=== PATIENT | male | born 1945 | race Caucasian/White ===

== ENCOUNTER 2019-04-28 09:48 | Outpatient (CLI) | payer MEDICARE, BC, SELFPAY ==
--- NOTE | ~2019-04-28 | MR_ITS ---
EXAMINATION: MR brain/brain stem wo con DATE: 04/28/2019 11:16 INDICATION: Weakness. TECHNIQUE: Magnetic resonance imaging (MRI) of the brain and brainstem was performed without intraven ous contrast. Sequences included sagittal and axial T1-weighted FSE, axial diffusion-weighted FS EPI, axial T2*-weighted GRE, axial T2-weighted FLAIR Propeller, and axial T2-weighted Propeller. Apparent diffusion coefficient (ADC) maps were created. COMPARISON: Head CT 02/10/2019 FINDINGS: There is no intracranial hemorrhage, acute infarction, or abnormal intracranial mass lesion . There are scattered areas of nonspecific increased T2-weighted signal intensity in the cerebral whi te matter and otoniel, which is within normal limits for the patient's age. The ventricles are normal in size. There is mild mucosal thickening in the paranasal sinuses. There are likely changes of ocular lens replacement surgeries. The mastoid air cells are normal. IMPRESSION: 1. Normal aging brain. Reviewed, dictated and finalized at location A. CTOR EMERGENCY DEPARTMENT IMPRESSION: 1. Normal aging brain.
--- NOTE | ~2019-04-28 | US_ITS ---
EXAMINATION: US carotid duplex BI EXAM DATE: 04/28/2019 12:35 INDICATION: Slurred speech, facial weakness. Fell last week. TECHNIQUE: Grayscale, color and pulsed Doppler images of the cervical carotid arteries were obtained . The degree of vessel stenosis is placed in one of the following categories: normal, <50% stenosis, 50-69% stenosis, >=70% stenosis but less than near-occlusion, near-occlusion, or occlusion. Note that percent stenosis relative to normal distal artery lumen diameter is indirectly measured from velocit y measurements as described by Marquise, et al. Radiology 2003; 229:340-346. There is no prior study fo r comparison. FINDINGS: RIGHT SIDE: Right common carotid artery peak systolic velocity (PSV in cm/s): 64 Right bulb/internal carotid artery peak systolic velocity (PSV in cm/s): 88 Right internal carotid artery end diastolic velocity (EDV in cm/s): 23 Right ICA/CCA peak systolic ratio: 1.4 Right external carotid artery peak systolic velocity (PSV in cm/s): 130 Right vertebral artery antegrade flow: yes There is mild scattered carotid plaque. Velocity and Doppler waveforms in the common and internal carotid arteries is normal. LEFT SIDE: Left common carotid artery peak systolic velocity (PSV in cm/s): 56 Left bulb/internal carotid artery peak systolic velocity (PSV in cm/s): 100 Left internal carotid artery end diastolic velocity (EDV in cm/s): 9 Left ICA/CCA peak systolic ratio: 1.8 Left external carotid artery peak systolic velocity (PSV in cm/s): 51 Left vertebral artery antegrade flow: yes There is mild scattered carotid plaque. Velocity and Doppler waveforms in the common and internal carotid arteries is normal. IMPRESSION: 1. Less than 50 percent stenosis in the right internal carotid artery. 2. Less than 50 percent stenosis in the left internal carotid artery. Reviewed, dictated and finalized at location A. OLOGIST
[2019-04-28 10:49] LABS: Blood Urea Nitrogen 30 mg/dL (8-26); Estimated Glomerular Filt Rate 23
== END 2019-04-28 09:49 | disposition home or self-care (01) ==
LOC: ANHIMG 09:56
PROVIDERS: PCP Family Medicine; Visit Provider Physician Assistant
DX: R53.1 Weakness (principal); R41.0 Disorientation, unspecified; I95.1 Orthostatic hypotension; I65.23 Occlusion and stenosis of bilateral carotid arteries
CPT/HCPCS: 70551; 93880

== ENCOUNTER → 2019-10-23 13:46 | Outpatient (CLI) | payer MEDICARE, BC, SELFPAY ==
--- NOTE | ~2019-10-23 | XR_ITS ---
XR chest 2V 10/23/2019 15:08 Indication: Pleural effusion. Procedure: 2 view chest Comparison: 12/30/2007 Findings: There is a masslike density in the left upper thorax. There are bilateral pleural effusions . Cardiomegaly. Status post median sternotomy for CABG. Mild pulmonary vascular congestion. There is left basilar atelectasis. No pneumothorax. Prominent mediastinum. Cannot exclude lymphadenopathy or u nderlying vascular abnormality. Impression: 1: Masslike density in the left upper thorax. Considerations include parenchymal mass and pseudotumor secondary to fluid in the fissure. Consider correlation with CT. 2: Small pleural effusions with left basilar atelectasis. 3: Prominent superior mediastinum. This may be further evaluated with contrast-enhanced CT to exclud e underlying lymphadenopathy or vascular abnormality. Reviewed, dictated and finalized at location A. Impression: 1: Masslike density in the left upper thorax. Considerations include parenchyma l mass and pseudotumor secondary to fluid in the fissure. Consider correlation with CT. 2: Small pleural effusions with left basilar atelectasis. 3: Prominent superior mediastinum. This may be further evaluated with contrast -enhanced CT to exclude underlying lymphadenopathy or vascular abnormality.
== END ==
PROVIDERS: PCP Family Medicine
DX: J90 Pleural effusion, not elsewhere classified (principal); R06.02 Shortness of breath
CPT/HCPCS: 71046

== ENCOUNTER 2020-05-16 04:43 | Observation (INO) | payer MEDICARE, BC, SELFPAY ==
[2020-05-16] VITALS (12 sets, daily range): BP systolic 123–153; BP diastolic 73–95; PULSE 101–119; RESP 18–30; TEMP 37.2–37.7; O2SAT 92–100
--- NOTE | ~2020-05-16 | CT_ITS ---
EXAMINATION: CT abdomen pelvis wo con DATE: 05/16/2020 05:27 INDICATION: Abdominal pain TECHNIQUE: Computed tomography (CT) of the abdomen and pelvis was performed without intravenous contr ast. The dose-length product (DLP) was 828.31 mGy-cm. Automated exposure control and iterative recons truction technique were employed. COMPARISON: 01/14/2004 FINDINGS: Minimal dependent atelectasis is present in the lung bases. The heart size is enlarged. The re are small pleural effusions, right greater than left. The liver, pancreas, gallbladder, and adrena l glands are normal. There is mild splenomegaly. The [place] kidneys are atrophic. There is a left pel radha renal transplant with mild hydronephrosis of the transplant. There is also mild fat stranding juan rounding the transplant kidney. No pathologically enlarged abdominal or pelvic lymph nodes are identi fied. There is no free intraperitoneal gas or evidence of bowel obstruction. There is circumferential wall thickening of the urinary bladder. There is mild lumbar spondylosis. IMPRESSION: 1. Circumferential bladder wall thickening suggestive of cystitis. Fat stranding adjacent to the left pelvic transplant kidney could be due to hydronephrosis or reflect superimposed pyelonephritis. 2. Small pleural effusions. Reviewed, dictated and finalized at location A. STITCH CLEANER IMPRESSION: 1. Circumferential bladder wall thickening suggestive of cystitis. Fat strandin g adjacent to the left pelvic transplant kidney could be due to hydronephrosis or reflect superimposed pyelonephritis. 2. Small pleural effusions.
--- NOTE | ~2020-05-16 | XR_ITS ---
EXAMINATION: XR chest 1V portable INDICATION: Fever TECHNIQUE: Portable AP chest at 0507 hours COMPARISON: 10/23/2019 FINDINGS: Cardiomegaly is noted. There are small pleural effusions. A mild diffuse interstitial patte rn is present. There are changes of prior cardiac surgery. No pneumothorax is identified. IMPRESSION: 1. Cardiomegaly with likely mild pulmonary edema. 2. Small pleural effusions. Reviewed, dictated and finalized at location A. CLAMPER
--- NOTE | 2020-05-16 04:48 | ECG_ITS ---
Measurements Intervals [place] Rate: 104 P: -48 MO: 149 QRS: -77 QRSD: 161 T: 33 QT: 392 QTc: 516 Interpretive Statements SINUS TACHYCARDIA FREQUENT ATRIAL PREMATURE COMPLEXES RIGHT BUNDLE BRANCH BLOCK LEFT ANTERIOR FASCICULAR BLOCK ABNORMAL ECG Electronically Signed On 05-16-2020 7:44:21 NEWSCAST PRODUCER by Lokesh Smith D.O.
[2020-05-16] MEDS: SODIUM CHLORIDE 0.9% IV 1,000 ML 999 ML IV CONT (05:09)
--- NOTE | 2020-05-16 05:11 | ED.GENADULT ---
HPI - General Adult General Chief complaint: Altered Mental Status <Umang Rivera MD - Last Filed: 05/16/20 07:30> Stated complaint: ams <Umang Rivera MD - Last Filed: 05/16/20 07:30> Time Seen by Provider: 05/16/20 04:45 <Umang Rivera MD - Last Filed: 05/16/20 07:30> History of Present Illness HPI narrative: Patient is a 74-year-old gentleman who presents the emergency department with chief complaint of generalized weakness. Patient is a renal transplant patient from [facility] and reports that over the last few days he has been weaker and weaker. The patient states he is also had chills and has had some nausea and vomiting and reports that his abdomen has felt discomfort. Patient denies cough denies shortness of breath per EMS the patient has been urinating everywhere and his called EMS because he has been more confused. <Umang Rivera MD - Last Filed: 05/16/20 07:30> Related Data Home medications: Home Medications Medication Instructions Recorded Confirmed Kimberly Layton 1 drp OPHTHALMIC (EYE) QPM 02/10/19 12/08/19 allopurinol 300 mg PO DAILY 02/10/19 12/08/19 aspirin 81 mg PO DAILY 02/10/19 12/08/19 atorvastatin 40 mg PO HS 02/10/19 12/08/19 calcitriol 0.5 mcg PO EVERY OTHER DAY 02/10/19 12/08/19 carbidopa-levodopa 25 - 250 tablet PO BID 02/10/19 12/08/19 carbidopa-levodopa 50 - 200 tablet PO BID 02/10/19 12/08/19 cevimeline 30 mg PO HS 02/10/19 12/08/19 docusate sodium [Colace] 100 mg PO BID 02/10/19 12/08/19 esomeprazole magnesium 40 mg PO BID 02/10/19 12/08/19 fluticasone propionate 2 spray INTRANASAL DAILY 02/10/19 12/08/19 ketoconazole 1 applic TOPICAL 3XW 02/10/19 12/08/19 lorazepam 0.5 mg PO QID PRN 02/10/19 12/08/19 melatonin 5 mg PO HS 02/10/19 12/08/19 metoprolol tartrate 12.5 mg PO BID 02/10/19 12/08/19 oxybutynin chloride 5 mg PO HS 02/10/19 12/08/19 tamsulosin 0.4 mg PO HS 02/10/19 12/08/19 clindamycin phosphate 1 % lotion 1 applic TOPICAL BID PRN 08/19/19 12/08/19 mupirocin calcium 2 % topical cream 1 applic TOPICAL BID 08/19/19 12/08/19 prucalopride 2 mg tablet 2 mg PO DAILY 08/19/19 12/08/19 pyridoxine (vitamin B6) 100 mg 100 mg PO DAILY 08/19/19 12/08/19 tablet ropinirole 0.25 mg tablet 0.25 mg PO HS tablet 08/19/19 12/08/19 apixaban 2.5 mg tablet 2.5 mg PO BID 10/01/19 12/08/19 midodrine 2.5 mg tablet 2.5 mg PO BID 10/01/19 12/08/19 polyethylene glycol 3350 17 8.5 gm PO BID gm 10/01/19 12/08/19 gram/dose oral powder sennosides 8.6 mg tablet 8.6 mg PO DAILY PRN tablet 10/01/19 12/08/19 bumetanide 1 mg tablet 1 mg PO DAILY 12/17/19 cholecalciferol (vitamin D3) 50 50 mcg PO DAILY 12/17/19 mcg (2,000 unit) capsule clotrimazole 10 mg bell 10 mg MUCOUS MEM .COMPLEX 12/17/19 fluocinonide 0.05 % topical cream 1 applic TOPICAL BID 12/17/19 po root 325 mg-pyridoxine HCl See Rx Instructions PO .COMPLEX 12/17/19 (vitamin B6) 25 mg capsule insulin glargine 100 unit/mL See Rx Instructions SUBCUT 12/17/19 subcutaneous solution .COMPLEX ml insulin regular human 100 unit/mL See Rx Instructions SUBCUT 12/17/19 injection solution .COMPLEX ml isosorbide mononitrate 30 mg 30 mg PO DAILY 12/17/19 tablet,extended release 24 hr latanoprost 0.005 % eye drops 1 drop EACH EYE QPM 12/17/19 magnesium oxide 400 mg PO BID 12/17/19 mycophenolate mofetil 250 mg 500 mg PO BID cap 12/17/19 capsule tacrolimus 1 mg capsule 0.5 mg PO .COMPLEX cap 12/17/19 venlafaxine 37.5 mg 37.5 mg PO DAILY cap 12/17/19 capsule,extended release 24 hr <Umang Rivera MD - Last Filed: 05/16/20 07:30> Allergies/adverse reactions: Allergies Allergy/AdvReac Type Severity Reaction Status Date / Time trimethobenzamide Allergy Severe Loss of Verified 05/16/20 05:46 Consciousness fish oil Allergy Mild Rash Verified 05/16/20 05:46 diphenhydramine Allergy Unknown aggi Verified 05/16/20 05:46 levofloxacin Allergy Unk
[2020-05-16 05:47] LABS: Basophils Absolute Auto 0.1 K/mm3 (0.0-0.1); Basophils Percent Auto 0.4 % (0.2-1.2); Eosinophils Percent Auto 0.1 % (0-4.4); Hematocrit 29.3 % (42.0-52.0); Hemoglobin 9.4 g/dL (14.0-18.0); Immature Granulocyte Absolute 0.06 K/mm3 (0.00-0.031); Immature Granulocyte Percent A 0.4 % (0-0.5); Lymphocytes Absolute Auto 1.27 K/mm3 (0.9-3.2); Lymphocytes Percent Auto 9.5 % (18.3-44.2); Mean Corpuscular HGB Conc 32.1 g/dl (32-36); Mean Corpuscular Hemoglobin 28.6 pg (26-34); Mean Corpuscular Volume 89.1 fl (80-100); Mean Platelet Volume 11.7 fl (7.4-10.4); Monocytes Absolute Auto 0.9 K/mm3 (0.1-0.6); Monocytes Percent Auto 6.9 % (2.6-8.5); Neutrophils Absolute Auto 11.1 K/mm3 (1.3-6.7); Neutrophils Percent Auto 82.7 % (45.5-73.1); Platelet Count Result 184 k/mm3 (150-375); Red Blood Count 3.29 M/mm3 (4.6-6.20); Red Cell Distribution Width 16.3 % (11.5-14.5); White Blood Count 13.4 K/mm3 (4.5-10.0)
[2020-05-16 06:04] LABS: INR 1.4; Prothrombin Time 18.1 Seconds (11.1-14.7)
[2020-05-16 06:05] LABS: Lipase 18 U/L (23-300); Partial Thromboplastin Time 35.3 SECONDS (22.3-36.8)
[2020-05-16 06:05] LABS: Add Urine Microscopic? YES; Appearance Urine Cloudy (Clear); Bacteria Urine 1+ /hpf; Bilirubin Urine Negative (Negative); Blood Urine 2+ (Negative); Color Urine Yellow (Yellow); Glucose Urine UA Negative (Negative); Ketones Urine Negative (Negative); Leukocyte Esterase Ur 3+ LEU/UL (Negative); Mucus Urine Rare /lpf; Nitrate Urine Negative (Negative); Protein Urine 3+ mg/dL (Negative); RBC Urine 21-50 /hpf (0-2); Specific Grav Ur 1.015 (1.001-1.035); Squamous Epithelial Cell Urine Rare /hpf (Few); Urobilinogen Urine Negative mg/dL (<2.0); WBC Urine >75 /hpf
[2020-05-16 06:07] LABS: Lactic Acid Reflex 1.2 mmol/L (0.7-2.1)
[2020-05-16 06:21] LABS: Troponin I 0.276 ng/mL (0.000-0.034)
[2020-05-16 06:22] LABS: Alanine Aminotransferase 10 U/L (4-50); Albumin Level 3.9 g/dL (3.5-5.1); Alkaline Phosphatase 72 U/L (38-126); Anion Gap 12 mmol/L (8-16); Aspartate Amino Transferase 29 U/L (17-59); Blood Urea Nitrogen 63 mg/dL (9-20); CRP 3.1 mg/dL (<1.0); Calcium 9.3 mg/dL (8.4-10.2); Carbon Dioxide 18 mmol/L (22-30); Chloride 109 mmol/L (98-107); Estimated CRCL calculation 22 ml/min; Estimated Glomerular Filt Rate 20; Glucose 148 mg/dL (75-110); Potassium 5.2 mmol/L (3.4-5.0); Sodium 139 mmol/L (137-145)
[2020-05-16] MEDS: LORazepam INJ (*CRX) 2 MG/ML VIAL 0.5 MG IV PUSH (06:45)
[2020-05-16] MEDS: SODIUM CHLORIDE 0.9% IV 1,000 ML 125 ML IV CONT (07:59)
--- NOTE | 2020-05-16 11:31 | PC.NURSE ---
Pt taken out of stretcher and given a hospital bed. Pt resting comfortably
--- NOTE | 2020-05-16 15:39 | PC.NURSE ---
called [facility] checking to see if assigned a bed, no bed yet, waiting for discharges, 1105, updated bed placement with [facility] 1539, still no bed .
[2020-05-16] MEDS: DOCUSATE SODIUM 100 MG CAPSULE PO (15:46)
[2020-05-16] MEDS: PYRIDOXINE HCL 50 MG TABLET 100 MG PO (15:47)
[2020-05-16] MEDS: hydrALAZINE HCL 50 MG TABLET PO ×2 (15:48→21:44)
[2020-05-16] MEDS: CARBIDOPA/LEVODOPA 25/250 MG TABLET 1 TABLET PO (15:49)
[2020-05-16] MEDS: allopurinoL 300 MG TABLET PO (15:50)
[2020-05-16] MEDS: APIXABAN 2.5 MG TABLET PO (15:50)
[2020-05-16] MEDS: ISOSORBIDE DINITRATE 20 MG TABLET PO (15:50)
[2020-05-16] MEDS: BUMETANIDE 1 MG TABLET PO (15:51)
[2020-05-16 17:17] LABS: Glucose Point of Care 321 (65-105)
--- NOTE | 2020-05-16 19:31 | PC.NURSE ---
Lizette from [facility] called and said they are still waiting for bed assignment for this patient.
--- NOTE | 2020-05-16 21:02 | PC.NURSE ---
going home at this time. Pt resting comfortably.
[2020-05-16] MEDS: OXYBUTYNIN CHLORIDE 5 MG TABLET PO (21:44)
[2020-05-16] MEDS: METOPROLOL SUCCINATE EXT REL 50 MG TABCR PO (21:44)
[2020-05-16] MEDS: TAMSULOSIN HCL 0.4 MG CAPSULE PO (21:44)
[2020-05-16] MEDS: MELATONIN 5 MG TABLET PO (21:45)
--- NOTE | 2020-05-16 21:45 | PC.NURSE ---
Pt home medications given per verbal order by JUVE cast. 500mg Cellcept and 1mg Tacrolimus given per prescription instructions and detailed medication list provided by spouse.
[2020-05-16 21:53] LABS: Glucose Point of Care 348 (65-105)
[2020-05-16] MEDS: INSULIN HUMAN REGULAR (*BKC) 100 UNITS/ML 17 UNITS SUB-Q (22:22)
[2020-05-16] MEDS: INSULIN GLARGINE (*BKC) 100 UNITS/ML 25 UNITS SUB-Q (22:22)
[2020-05-17] VITALS (12 sets, daily range): BP systolic 120–150; BP diastolic 67–93; PULSE 89–96; RESP 18–25; TEMP 36.8–37.1; O2SAT 92–98; BMI 30.2
--- NOTE | 2020-05-17 | ECHO_ITS ---
Patient Info Name: Maris Almeida Age: 74 years : 1945 Gender: Male Ht: 69 in Wt: 207 lbs BSA: 2.16 m2 HR: 100 bpm BP: 123 / 67 mmHg Technical Quality: Good Exam Date: 05/17/2020 2:53 PM Exam Location: [facility] Patient Status: Outpatient Admit Date: 05/17/2020 Staff Ordering Physician: Lokesh Smith DO Surveyor Chain Helper: Madison Boyer RDCS Attending Provider: Pam Fragoso MD Referring Physician: Luis VALLEJO; Exam Type: CA echo doppler color flow Summary 1. Left ventricular systolic function is preserved, estimated at 50-55%. 2. Left ventricular chamber dimension is normal. 3. There is moderately increased left ventricular wall thickness. 4. The left ventricular diastolic function is abnormal. 5. E/e' 20 is elevated. 6. Right ventricular systolic function is reduced based on a TAPSE 1.0 cm. 7. Left atrial chamber dimension is moderately enlarged. 8. Right atrial chamber dimension is mildly enlarged. 9. There is severe aortic valve sclerosis. 10. There is severe aortic valve stenosis with a peak velocity of 407 cm/s, mean gradient of 40 mmHg, and aortic valve area of 0.8 cm2. 11. There is mild aortic valve regurgitation. 12. The mitral valve has moderately calcified annulus. 13. There is mild tricuspid valve regurgitation. 14. Moderate pulmonary hypertension, estimated pulmonary arterial systolic pressure is 52 mmHg. Left Ventricle E/e' 20 is elevated. Left ventricular systolic function is preserved, estimated at 50-55%. Left ventricular chamber dimension is normal. There is moderately increased left ventricular wall thickness. The left ventricular diastolic function is abnormal. Right Ventricle Right ventricular systolic function is reduced based on a TAPSE 1.0 cm. Right ventricular chamber dimension is not well visualized. Left Atria Left atrial chamber dimension is moderately enlarged. Right Atria Right atrial chamber dimension is mildly enlarged. Aortic Valve The aortic valve is bicuspid. There is severe aortic valve sclerosis. There is severe aortic valve stenosis with a peak velocity of 407 cm/s, mean gradient of 40 mmHg, and aortic valve area of 0.8 cm2. There is mild aortic valve regurgitation. Pulmonic Valve There is no pulmonic regurgitation. Mitral Valve The mitral valve has moderately calcified annulus. There is no mitral valve stenosis. There is no mitral valve regurgitation. Tricuspid Valve There is mild tricuspid valve regurgitation. Moderate pulmonary hypertension, estimated pulmonary arterial systolic pressure is 52 mmHg. Pericardium/Pleural There is no pericardial effusion. Inferior Vena Cava Normal inferior vena cava with >50% collapse upon inspiration consistent with normal right atrial pressure, 5 mmHg. Aorta The aortic root size at the sinus of Valsalva is normal. Left Ventricular Outflow Tract Name Value Normal LVOT 2D LVOT Diameter 2.1 cm LVOT Doppler LVOT Peak Gradient 2 mmHg LVOT Mean Gradient 1 mmHg LVOT VTI 18 cm LVOT VTI/AV VTI Ratio
--- NOTE | 2020-05-17 05:51 | PC.NURSE ---
Pt feels constant urge to urinate but is unable to urinate more than dribbling. Pt incontinent in bed several times overnight. Per EDP serene initiate cerna catheter for I&O accuracy. Cerna placed per protocol with over 300ml return of yellow urine. Pt notes relief.
--- NOTE | 2020-05-17 06:30 | PC.NURSE ---
Adrian from [facility] Patient Access/Transfer. [facility] is currently over-capacity, holding 20+ patients in ER. Several of them are also ICU. No estimated time as to when a bed will become available...depends on discharges, etc.
--- NOTE | 2020-05-17 07:37 | PC.NURSE ---
Assumed care of pt, pt is alert on stretcher, discussed POC. VSS.
--- NOTE | 2020-05-17 07:53 | PC.NURSE ---
Pt given breakfast tray. BS 108.
[2020-05-17 07:55] LABS: Glucose Point of Care 108 (65-105)
[2020-05-17] MEDS: allopurinoL 300 MG TABLET PO (07:55)
[2020-05-17 08:12] LABS: Basophils Percent Auto 0.3 % (0.2-1.2); Eosinophils Percent Auto 0.1 % (0-4.4); Hematocrit 28.9 % (42.0-52.0); Immature Granulocyte Absolute 0.05 K/mm3 (0.00-0.031); Immature Granulocyte Percent A 0.4 % (0-0.5); Lymphocytes Percent Auto 8.1 % (18.3-44.2); Mean Corpuscular HGB Conc 31.1 g/dl (32-36); Mean Platelet Volume 11.2 fl (7.4-10.4); Monocytes Absolute Auto 0.9 K/mm3 (0.1-0.6); Monocytes Percent Auto 6.8 % (2.6-8.5); Neutrophils Absolute Auto 11.5 K/mm3 (1.3-6.7); Neutrophils Percent Auto 84.3 % (45.5-73.1); Platelet Count Result 160 k/mm3 (150-375); Red Blood Count 3.21 M/mm3 (4.6-6.20); Red Cell Distribution Width 16.5 % (11.5-14.5); White Blood Count 13.6 K/mm3 (4.5-10.0)
[2020-05-17 08:23] LABS: Anion Gap 11 mmol/L (8-16); Blood Urea Nitrogen 66 mg/dL (9-20); Calcium 9.3 mg/dL (8.4-10.2); Carbon Dioxide 20 mmol/L (22-30); Chloride 108 mmol/L (98-107); Estimated CRCL calculation 19 ml/min; Estimated Glomerular Filt Rate 16; Glucose 110 mg/dL (75-110); Potassium 4.8 mmol/L (3.4-5.0); Sodium 139 mmol/L (137-145)
--- NOTE | 2020-05-17 08:45 | ECG_ITS ---
Measurements Intervals [place] Rate: 95 P: 52 OH: 175 QRS: -77 QRSD: 164 T: 60 QT: 413 QTc: 520 Interpretive Statements SINUS RHYTHM ATRIAL PREMATURE COMPLEXES RIGHT BUNDLE BRANCH BLOCK LEFT ANTERIOR FASCICULAR BLOCK BASELINE ARTIFACT- I, II, III, AVR, AVL, AVF ABNORMAL ECG Electronically Signed On 05-17-2020 9:09:53 CATTERY OPERATOR by Lokesh Smith D.O.
--- NOTE | 2020-05-17 09:15 | PC.NURSE ---
Pt placed on 2 L NC O2.
--- NOTE | 2020-05-17 09:24 | PC.NURSE ---
Pt coughed and HR now 110, EDP made aware.
--- NOTE | 2020-05-17 09:26 | PC.NURSE ---
I did not do this EKG but doing the documentation.
[2020-05-17] MEDS: APIXABAN 2.5 MG TABLET PO (09:36)
[2020-05-17] MEDS: CARBIDOPA/LEVODOPA 25/250 MG TABLET 1 TABLET PO (09:36)
[2020-05-17] MEDS: BUMETANIDE 1 MG TABLET PO (09:36)
[2020-05-17] MEDS: hydrALAZINE HCL 50 MG TABLET PO ×2 (09:36→17:06)
[2020-05-17] MEDS: DOCUSATE SODIUM 100 MG CAPSULE PO (09:36)
[2020-05-17] MEDS: ISOSORBIDE DINITRATE 20 MG TABLET PO ×2 (09:37→17:06)
[2020-05-17] MEDS: MIDODRINE HCL 2.5 MG TABLET 5 MG PO ×2 (09:37→17:07)
[2020-05-17] MEDS: PYRIDOXINE HCL 50 MG TABLET 100 MG PO (09:37)
[2020-05-17] MEDS: OXYBUTYNIN CHLORIDE 5 MG TABLET PO ×2 (09:37→17:05)
--- NOTE | 2020-05-17 09:43 | PC.NURSE ---
Pt has medication that was not available in the pharmacy. Pt is taking Calcitriol 0.5 mcg, Carbidopa/levodopa 50mg/200 mg, nexium 40 mg, Cellcept 250 mg, Tacrolimus 1 mg, Aspirin 81 mg, and po root 550 mg
[2020-05-17 12:12] LABS: Glucose Point of Care 105 (65-105)
--- NOTE | 2020-05-17 15:48 | PM.IMHP ---
H&P: HPI History of Present Illness Date/Time: 05/17/20 15:48 Chief Complaint: Generalized weakness UTI Narrative: Maris Almeida is a 74 year old male status post kidney transplant in 2007 with generalized weakness had difficulty with his ADLs felt feverish and fatigue patient had been urinating everywhere in the house EMS was called and patient was brought emergency depart, patient normally is seen at [facility] as hes kidney transplant patient, ER physician did speak with his physician at the [facility] and patient is accepted however awaiting to be transferred, patient urine appears to be positive for UTI we have started the patient on Rocephin will follow-up on urine culture and sensitivity hopefully patient will be transferred to the [facility] hospital, will resume all his medication, is present in the room. Review of Systems Review of Systems: All systems reviewed & are unremarkable except as noted in HPI and below PMFSH Past Medical History Medical History (Updated 05/17/20 @ 09:21 by Avinash Garcia DO) BPH (benign prostatic hyperplasia) Depression Diabetes Dry mouth Gastroparesis Stage 4 Glaucoma Gout HLD (hyperlipidemia) HTN (hypertension) Parkinson's disease Subdural hematoma From fall on 24 December 2018 Surgical History Surgical History (Updated 05/16/20 @ 06:29 by Umang Rivera MD) History of biopsy rt shoulder and lt palm Hx of CABG 2007, followed by lengthy hospital stay and a second surgery Renal transplant recipient 2007 Family History Family History (Updated 05/17/20 @ 13:09 by Lupis Cheek RNLP) Father Family history of malignant neoplasm of stomach Mother Diabetes mellitus Grandparent Family history of cardiovascular disease Diabetes mellitus Sibling Crohn's disease Brain aneurysm Social History Social History Smoking status: Never smoker Alcohol intake: current Drinks per week: 0 Substance use: never Substance use type: does not use Gender identity (if verbalized by the patient): Male Spiritual care concerns: No Meds Home Medications and Allergies Home Medications Medication Instructions Recorded Confirmed Type allopurinol 300 mg PO DAILY 02/10/19 05/17/20 History aspirin 81 mg PO DAILY 02/10/19 05/17/20 History atorvastatin 40 mg PO HS 02/10/19 05/17/20 History calcitriol 0.5 mcg PO MOWEFR 02/10/19 05/17/20 History carbidopa-levodopa 25 - 250 tablet PO BID 02/10/19 05/17/20 History carbidopa-levodopa 50 - 200 tablet PO BID 02/10/19 05/17/20 History docusate sodium [Colace] 100 mg PO BID 02/10/19 05/17/20 History esomeprazole magnesium 40 mg PO BID 02/10/19 05/17/20 History fluticasone propionate 2 spray INTRANASAL DAILY PRN 02/10/19 05/17/20 History ketoconazole 1 applic TOPICAL 3XW 02/10/19 05/17/20 History lorazepam 0.5 mg PO Q6H PRN 02/10/19 05/17/20 History melatonin 5 mg PO HS 02/10/19 05/17/20 History oxybutynin chloride 5 mg PO HS 02/10/19 05/17/20 History tamsulosin 0.4 mg PO HS 02/10/19 05/17/20 History clindamycin phosphate 1 % lotion 1 applic TOPICAL BID PRN 08/19/19 05/17/20 History prucalopride 2 mg tablet 2 mg PO DAILY 08/19/19 05/17/20 History ropinirole 0.25 mg tablet 0.125 mg PO HS tablet 08/19/19 05/17/20 History apixaban 2.5 mg tablet 2.5 mg PO BID 10/01/19 05/17/20 History polyethylene glycol 3350 17 17 gm PO BID PRN gm 10/01/19 05/17/20 History gram/dose oral powder sennosides 8.6 mg tablet 8.6 mg PO DAILY PRN tablet 10/01/19 05/17/20 History bumetanide 1 mg tablet 1 mg PO DAILY 12/17/19 05/17/20 History clotrimazole 10 mg bell See Rx Instructions .ROUTE 12/17/19 05/17/20 History .COMPLEX PRN fluocinonide 0.05 % topical cream 1 applic TOPICAL DAILY PRN 12/17/19 05/17/20 History insulin regular human 100 unit/mL See Rx Instructions SUBCUT 12/17/19 05/17/20 History injection solution .COMPLEX ml latanoprost 0.005 % eye drops 1 drop EACH EYE QPM 09
--- NOTE | 2020-05-17 15:58 | PM.TDS ---
Transfer Discharge Sum: Prov Provider Date of admission: 05/17/20 09:15 Primary care physician: Neftaly Ford MD Admitting clinician: Pam Fraogso MD Consults: 05/17/20 09:16 Consult to Physician Routine Comment: Consulting Provider: Shreyas Pemberton Reason for consultation: renal insufficiency Has provider been notified: Yes 05/17/20 09:17 Consult to Physician Routine Comment: Consulting Provider: Lokesh Smith Reason for consultation: elevated troponin Has provider been notified: Yes DS: Admitting Diagnosis Admitting Diagnosis Admitting Diagnosis: Chief Complaint: Generalized weakness UTI DS: Discharge Diagnosis Discharge Diagnosis (1) Urinary tract infection: Qualifiers: Hematuria presence: without hematuria Urinary tract infection type: acute cystitis Qualified Code(s): N30.00 - Acute cystitis without hematuria Code(s): N39.0 - Urinary tract infection, site not specified Status: Acute Assessment and Plan: Maris Almeida is a 74 year old male status post kidney transplant in 2007 with generalized weakness had difficulty with his ADLs felt feverish and fatigue patient had been urinating everywhere in the house EMS was called and patient was brought emergency depart, patient normally is seen at [facility] as has kidney transplant patient, ER physician did speak with his physician at the [facility] and patient is accepted however awaiting to be transferred, patient urine appears to be positive for UTI we have started the patient on Rocephin will follow-up on urine culture and sensitivity hopefully patient will be transferred to the [facility] hospital, will resume all his medication, is present in the room. I was just informed patient has a bed available and is being transferred Transfer Discharge Sum: Med Medications Active and Home Medications: Home Medications allopurinol 300 mg PO DAILY 02/10/19 [History Confirmed 05/17/20] aspirin 81 mg PO DAILY 02/10/19 [History Confirmed 05/17/20] atorvastatin 40 mg PO HS 02/10/19 [History Confirmed 05/17/20] calcitriol 0.5 mcg PO MOWEFR 02/10/19 [History Confirmed 05/17/20] carbidopa-levodopa 25 - 250 tablet PO BID 02/10/19 [History Confirmed 05/17/20] carbidopa-levodopa 50 - 200 tablet PO BID 02/10/19 [History Confirmed 05/17/20] docusate sodium [Colace] 100 mg PO BID 02/10/19 [History Confirmed 05/17/20] esomeprazole magnesium 40 mg PO BID 02/10/19 [History Confirmed 05/17/20] fluticasone propionate 2 spray INTRANASAL DAILY PRN 02/10/19 [History Confirmed 05/17/20] ketoconazole 1 applic TOPICAL 3XW 02/10/19 [History Confirmed 05/17/20] lorazepam 0.5 mg PO Q6H PRN 02/10/19 [History Confirmed 05/17/20] melatonin 5 mg PO HS 02/10/19 [History Confirmed 05/17/20] oxybutynin chloride 5 mg PO HS 02/10/19 [History Confirmed 05/17/20] tamsulosin 0.4 mg PO HS 02/10/19 [History Confirmed 05/17/20] clindamycin phosphate 1 % lotion 1 applic TOPICAL BID PRN 08/19/19 [History Confirmed 05/17/20] prucalopride 2 mg tablet 2 mg PO DAILY 08/19/19 [History Confirmed 05/17/20] ropinirole 0.25 mg tablet 0.125 mg PO HS tablet 08/19/19 [History Confirmed 05/17/20] apixaban 2.5 mg tablet 2.5 mg PO BID 10/01/19 [History Confirmed 05/17/20] polyethylene glycol 3350 17 gram/dose oral powder 17 gm PO BID PRN gm 10/01/19 [History Confirmed 05/17/20] sennosides 8.6 mg tablet 8.6 mg PO DAILY PRN tablet 10/01/19 [History Confirmed 05/17/20] bumetanide 1 mg tablet 1 mg PO DAILY 12/17/19 [History Confirmed 05/17/20] clotrimazole 10 mg bell See Rx Instructions .ROUTE .COMPLEX PRN 12/17/19 [History Confirmed 05/17/20] fluocinonide 0.05 % topical cream 1 applic TOPICAL DAILY PRN 12/17/19 [History Confirmed 05/17/20] insulin regular human 100 unit/mL injection solution See Rx Instructions SUBCUT .COMPLEX ml 12/17/19 [History Confirmed 05/17/20] latanoprost 0.005 % eye drops 1 drop EACH EYE QPM 12/17/19 [History Confirmed 05/17/20] mycophenolate mofetil 250 mg capsule 500 mg PO
[2020-05-17] MEDS: INSULIN HUMAN REGULAR (*BKC) 100 UNITS/ML 17 UNITS SUB-Q (17:05)
[2020-05-17] MEDS: PANTOPRAZOLE 40 MG TABLET PO (17:06)
[2020-05-17 17:26] LABS: Glucose Point of Care 125 (65-105)
--- NOTE | 2020-05-17 17:48 | PM.CNCAR ---
Assessment and Plan Assessment and plan (1) Urinary tract infection: Qualifiers: Hematuria presence: without hematuria Urinary tract infection type: acute cystitis Qualified Code(s): N30.00 - Acute cystitis without hematuria Code(s): N39.0 - Urinary tract infection, site not specified Status: Acute Assessment and Plan: Receiving antibiotics as per hospitalist. (2) Elevated troponin: Code(s): R77.8 - Other specified abnormalities of plasma proteins Status: Acute Assessment and Plan: Peaked at 1.9 and trending down. Could be type II infarct related to UTI, CKD. No symptoms to suggest ACS. He had non-obstructive left heart cath recently at [facility]. Echo showed preserved EF at 50-55%, bicuspid aortic valve with severe . No further cardiac workup related to elevated troponins. (3) HLD (hyperlipidemia): Code(s): E78.5 - Hyperlipidemia, unspecified Status: Acute Assessment and Plan: On statin. (4) HTN (hypertension): Code(s): I10 - Essential (primary) hypertension Status: Acute Assessment and Plan: Stable. (5) Aortic stenosis due to bicuspid aortic valve: Code(s): Q23.0 - Congenital stenosis of aortic valve; Q23.1 - Congenital insufficiency of aortic valve Status: Acute Assessment and Plan: He is scheduled for TAVR at [facility] in next 1-2 weeks. History of Present Illness History of Present Illness Consult date/time: 05/17/20 17:48 Reason for consult: Elevated troponin 74 yr old man who is being followed by [facility] cardiology presented to ER due to weakness. He has a history of renal transplant with [facility], CKD, DM, hypertnesion, dyslipidemia, bicuspid aortic valve that is severe and plans for TAVR at [facility] in next 1-2 weeks. He has been in ED for 30 hours awaiting for bed availability to be transferred to [facility]. Apparently they just called that a bed is available and he will transferred there shortly this evening. He reports he feels pressure in his bladder and not making much urine but a couple of teaspoons. Found he has UTI. EKG shows sinus rhythm, RBBB, LAFB. Troponin was 0.267 went to 1.9, then 1.6. Denies chest pain, sob. Reason For Visit: UTI,Acute Renal Insufficiency,Renal Transplant, Review of Systems Constitutional: Constitutional: Reports as per HPI, Denies chills, Reports fatigue and Denies fever(s) Cardiovascular: Cardiovascular: Reports as per HPI, Denies chest pain, Denies leg edema and Denies lightheadedness Respiratory: Respiratory: Reports as per HPI and Denies dyspnea Gastrointestinal: Gastrointestinal: Reports as per HPI and Denies abdominal pain Genitourinary: Genitourinary: Reports as per HPI and Reports dysuria Musculoskeletal: Musculoskeletal: Reports as per HPI Neurologic: Reports as per HPI, Denies dizziness and Denies syncope [facility] Past Medical History Medical History (Updated 05/17/20 @ 17:58 by Lokesh Smith DO) BPH (benign prostatic hyperplasia) Depression Diabetes Dry mouth Gastroparesis Stage 4 Glaucoma Gout HLD (hyperlipidemia) HTN (hypertension) Parkinson's disease Subdural hematoma From fall on 24 December 2018 Surgical History Surgical History (Updated 05/16/20 @ 06:29 by Umang Rivera MD) History of biopsy rt shoulder and lt palm Hx of CABG 2007, followed by lengthy hospital stay and a second surgery Renal transplant recipient 2007 Family History Family History (Updated 05/17/20 @ 13:09 by Lupis Cheek, RNLP) Father Family history of malignant neoplasm of stomach Mother Diabetes mellitus Grandparent Family history of cardiovascular disease Diabetes mellitus Sibling Crohn's disease Brain aneurysm Social History Social History Smoking status: Never smoker Alcohol intake: current Drinks per week: 0 Substance use: never Substance use type: does not use Gender identity (i
--- NOTE | 2020-05-17 18:42 | ADMGEN ---
This patient, Maris Almeida, was admitted to IMU Room 205-02 at 1113. Patient/family oriented to hospital policies and general routines including ID bracelet, bed and alarms, visiting hours, pain management, procedures, bathroom and other care routines, personal items, smoking policy, room service/diet, and visiting hours. Information on how to activate the Rapid Response Team has been discussed. Patient/Family are encouraged to report perceived risks to care and to ask questions if they do not understand what they are told or what they should do.
== END 2020-05-17 18:11 | disposition short-term general hospital (02) ==
LOC: ANHED 05-17 09:21 → ANHIMU 05-17 10:14
PROVIDERS: Emergency Medicine; Admitting Provider Family Medicine; Emergency Provider Emergency Medicine; PCP Family Medicine; Visit Provider Family Medicine
DX: N30.00 Acute cystitis without hematuria (principal); R77.8 Other specified abnormalities of plasma proteins; R53.1 Weakness; Z94.0 Kidney transplant status; I10 Essential (primary) hypertension; E11.9 Type 2 diabetes mellitus without complications; G20 Parkinson's disease; K31.84 Gastroparesis; M10.9 Gout, unspecified; H40.9 Unspecified glaucoma; E78.5 Hyperlipidemia, unspecified; N40.0 Benign prostatic hyperplasia without lower urinary tract symptoms; Q23.0 Congenital stenosis of aortic valve; Q23.1 Congenital insufficiency of aortic valve; Z95.1 Presence of aortocoronary bypass graft; Z79.82 Long term (current) use of aspirin; Z79.01 Long term (current) use of anticoagulants; Z79.4 Long term (current) use of insulin
CPT/HCPCS: 36415; 51701; 51702; 71045; 74176; 80048; 80053; 81001; 82948; 83605; 83690; 84484; 85025; 85610; 85730; 86140; 87040; 87077; 87086; 87088; 87186; 93005; 93306; 96361; 96365; 96375; 99285; A9270; G0378; J0131; J0696; J1815; J2060; J7030

== ENCOUNTER 2020-09-16 15:00 | Outpatient (RCR) | payer MEDICARE, BC, SELFPAY ==
[2020-06-28 19:06] LABS: Glucose Point of Care 121 (65-105)
--- NOTE | 2020-07-29 14:04 | PCCPR ---
Absent Sammy's called state he is having a tough day. He had a medication change adding more hydralazine for his b/p it is making him feel weak and tired and did not feel like getting out of bed as well as nauseated.
--- NOTE | 2020-08-04 14:47 | PCCPR ---
Absent Sammy sent home yesterday due to upset stomach and vomiting. called today states he is still not feeling well. He also has some medication changes. Plans to return on Sunday.
--- NOTE | 2020-08-05 13:42 | PCCPR ---
pt called to cxl Sammy today. He is still not feeling well
--- NOTE | 2020-08-30 13:49 | PCCPR ---
Absent today, home with gastroperisis flare up.
== END 2020-09-16 19:30 | disposition home or self-care (01) ==
LOC: ANHCPREHAB 15:00
PROVIDERS: PCP Family Medicine; Visit Provider Internal Medicine Interventional Cardiology
DX: Z95.2 Presence of prosthetic heart valve (principal)
CPT/HCPCS: 93798

== ENCOUNTER 2020-11-17 15:35 | Emergency (ER) | payer MEDICARE, BC, SELFPAY ==
[2020-11-17 17:00] VITALS: BP 141/65; PULSE 73; RESP 14; TEMP 36.8; O2SAT 99
--- NOTE | 2020-11-17 17:31 | ED.GENADULT ---
HPI - General Adult General Chief complaint: Unspecified Stated complaint: L UPPER ARM BRUISING Time Seen by Provider: 11/17/20 17:04 History of Present Illness HPI narrative: Patient presents with bruising to the left upper extremity. Reports bruising has been there for 2 days and appears to be getting worse. He talked to his primary care doctor and was referred to the ER for evaluation. He does not member any trauma to the area he denies any pain to the area denies any focal numbness or weakness. Related Data Home Medications Medication Instructions Recorded Confirmed allopurinol 300 mg PO DAILY 02/10/19 11/05/20 atorvastatin 40 mg PO HS 02/10/19 11/05/20 calcitriol 0.5 mcg PO MOWEFR 02/10/19 11/05/20 carbidopa-levodopa 25 - 250 tablet PO BID 02/10/19 11/05/20 carbidopa-levodopa 50 - 200 tablet PO BID 02/10/19 11/05/20 docusate sodium [Colace] 100 mg PO BID 02/10/19 11/05/20 fluticasone propionate 2 spray INTRANASAL DAILY PRN 02/10/19 11/05/20 ketoconazole 1 applic TOPICAL 3XW 02/10/19 11/05/20 lorazepam 0.5 mg PO Q6H PRN 02/10/19 11/05/20 melatonin 5 mg PO HS 02/10/19 11/05/20 oxybutynin chloride 5 mg PO HS 02/10/19 11/05/20 tamsulosin 0.4 mg PO HS 02/10/19 11/05/20 ropinirole 0.25 mg tablet 0.125 mg PO HS tablet 08/19/19 11/05/20 apixaban 2.5 mg tablet 2.5 mg PO BID 10/01/19 11/05/20 polyethylene glycol 3350 17 17 gm PO BID PRN gm 10/01/19 11/05/20 gram/dose oral powder sennosides 8.6 mg tablet 8.6 mg PO DAILY PRN tablet 10/01/19 11/05/20 fluocinonide 0.05 % topical cream 1 applic TOPICAL DAILY PRN 12/17/19 11/05/20 insulin regular human 100 unit/mL See Rx Instructions SUBCUT 12/17/19 11/05/20 injection solution .COMPLEX ml latanoprost 0.005 % eye drops 1 drop EACH EYE QPM 12/17/19 11/05/20 tacrolimus 1 mg capsule, 1 mg PO Q12H cap 12/17/19 11/05/20 immediate-release bumetanide 2 mg PO HS PRN 05/17/20 11/05/20 insulin glargine [Lantus U-100 20 unit SUBCUT BID 05/17/20 11/05/20 Insulin] midodrine 5 mg PO BID PRN 05/17/20 11/05/20 pyridoxine (vitamin B6) 100 mg PO DAILY 05/17/20 11/05/20 venlafaxine 75 mg PO HS 05/17/20 11/05/20 B complex with C 20-folic acid 1 cap PO DAILY 06/24/20 11/05/20 [Triphrocaps] aspirin 81 mg PO DAILY 06/24/20 11/05/20 brimonidine 1 drp EACH EYE TID 06/24/20 11/05/20 folic acid 1 mg PO DAILY 06/24/20 11/05/20 isosorbide dinitrate 20 mg PO TID 06/24/20 11/05/20 metoprolol succinate 100 mg PO HS 06/24/20 11/05/20 prednisone 5 mg PO DAILY 06/24/20 11/05/20 prucalopride [Motegrity] 2 mg PO DAILY 06/24/20 11/05/20 sodium bicarbonate 20 g BID 06/24/20 11/05/20 tacrolimus 0.5 mg HS 06/24/20 11/05/20 ferrous sulfate 325 mg (65 mg 325 mg PO DAILY 07/05/20 11/05/20 iron) tablet omeprazole 40 mg capsule,delayed 40 mg PO DAILY cap 07/05/20 11/05/20 release vitamin B complex and vitamin C 1 cap PO DAILY 07/05/20 11/05/20 no.20-folic acid 1 mg capsule hydralazine 50 mg PO TID 08/19/20 11/05/20 carvedilol 12.5 mg tablet 12.5 mg PO Q12H 11/05/20 11/08/20 Allergies Allergy/AdvReac Type Severity Reaction Status Date / Time trimethobenzamide Allergy Severe Loss of Verified 11/05/20 14:43 Consciousness fish oil Allergy Mild Rash Verified 11/05/20 14:43 diphenhydramine Allergy Unknown aggi Verified 11/05/20 14:43 levofloxacin Allergy Unknown Hives Verified 11/05/20 14:43 NSAIDS (Non-Steroidal Allergy Unknown renal Verified 11/05/20 14:43 Anti-Inflamma insuff metoclopramide AdvReac Severe Other Verified 11/05/20 14:43 ondansetron AdvReac Severe Other Verified 11/05/20 14:43 Review of Systems Review of Systems: CONSTITUTIONAL: Denies fever, chills, or sweats. EYES: Denies visual changes, redness, or discharge. ENT: Denies rhinorrhea, congestion, sore throat, or otalgia. CARDIOVASCULAR: Denies chest pain, palpitations, or edema. RESPIRATORY: Denies cough or dyspnea. GASTROINTESTINAL: Denies abdominal pain, nausea, vomiting, or diarrhea. GENITOURINARY: Denies dysuria or hematuria. SKI
[2020-11-17 17:44] LABS: Basophils Absolute Auto 0.1 K/mm3 (0.0-0.1); Basophils Percent Auto 0.5 % (0.2-1.2); Eosinophils Absolute Auto 0.2 K/mm3 (0-0.3); Eosinophils Percent Auto 1.5 % (0-4.4); Hematocrit 35.8 % (42.0-52.0); Hemoglobin 11.8 g/dL (14.0-18.0); Immature Granulocyte Absolute 0.06 K/mm3 (0.00-0.031); Immature Granulocyte Percent A 0.6 % (0-0.5); Lymphocytes Absolute Auto 2.34 K/mm3 (0.9-3.2); Lymphocytes Percent Auto 23.9 % (18.3-44.2); Mean Platelet Volume 11.3 fl (7.4-10.4); Monocytes Absolute Auto 0.7 K/mm3 (0.1-0.6); Monocytes Percent Auto 7.2 % (2.6-8.5); Neutrophils Absolute Auto 6.5 K/mm3 (1.3-6.7); Neutrophils Percent Auto 66.3 % (45.5-73.1); Platelet Count Result 148 k/mm3 (150-375); Red Blood Count 3.81 M/mm3 (4.6-6.20); Red Cell Distribution Width 16.9 % (11.5-14.5); White Blood Count 9.8 K/mm3 (4.5-10.0)
[2020-11-17 17:56] LABS: INR 1.2; Prothrombin Time 14.7 Seconds (11.1-14.7)
[2020-11-17 17:57] LABS: Partial Thromboplastin Time 31.4 SECONDS (22.3-36.8)
[2020-11-17 17:58] LABS: Alanine Aminotransferase 10 U/L (4-50); Albumin Level 3.3 g/dL (3.5-5.1); Alkaline Phosphatase 65 U/L (38-126); Anion Gap 6 mmol/L (8-16); Aspartate Amino Transferase 32 U/L (17-59); Bilirubin,Total 0.8 mg/dL (0.2-1.3); Blood Urea Nitrogen 54 mg/dL (9-20); Calcium 9.1 mg/dL (8.4-10.2); Carbon Dioxide 23 mmol/L (22-30); Chloride 108 mmol/L (98-107); Estimated CRCL calculation 18 ml/min; Estimated Glomerular Filt Rate 18; Glucose 254 mg/dL (65-110); Potassium 4.4 mmol/L (3.4-5.0); Sodium 137 mmol/L (137-145)
[2020-11-17 20:04] VITALS: BP 175/87; PULSE 76; RESP 18; O2SAT 100
== END 2020-11-17 20:06 | disposition home or self-care (01) ==
PROVIDERS: Emergency Provider Emergency Medicine; PCP Family Medicine
DX: S40.022A Contusion of left upper arm, initial encounter (principal); E11.9 Type 2 diabetes mellitus without complications; I10 Essential (primary) hypertension; G20 Parkinson's disease; Z79.4 Long term (current) use of insulin; X58.XXXA Exposure to other specified factors, initial encounter
CPT/HCPCS: 36415; 80053; 85025; 85610; 85730; 99283

== ENCOUNTER 2020-11-24 05:47 | Inpatient (IN) | payer MEDICARE, BC, SELFPAY ==
[2020-11-24] VITALS (15 sets, daily range): BP systolic 112–182; BP diastolic 73–98; PULSE 70–101; RESP 16–24; TEMP 36.7–38.4; O2SAT 91–97
--- NOTE | ~2020-11-24 | XR_ITS ---
EXAMINATION: XR chest 2V DATE: 11/24/2020 06:40 INDICATION: Chest pain TECHNIQUE: AP and lateral views of the chest are obtained. COMPARISON: 05/16/2020 FINDINGS: Cardiomegaly is noted. There are small pleural effusions. A mild diffuse interstitial patte rn is present. There are minimal airspace opacities of the left lung base. Changes of prior cardiac s urgery are noted. IMPRESSION: 1. Cardiomegaly with mild pulmonary edema. 2. Small pleural effusions. Reviewed, dictated and finalized at location A.
--- NOTE | ~2020-11-24 | XR_ITS ---
EXAMINATION: XR chest 1V portable DATE: 11/25/2020 17:38 INDICATION: Shortness of breath. TECHNIQUE: A single frontal view of the chest was obtained on 2 radiographs. COMPARISON: Chest 2 views 11/24/2020, CT abdomen and pelvis 05/16/20 FINDINGS: There is left-sided pleural thickening. No significant pleural effusion. There is a diffuse interstitial pattern, consistent mild pulmonary edema. No pneumothorax. Cardiomegaly is noted. IMPRESSION: 1. Mild pulmonary edema. 2. Chronic left-sided pleural thickening. 3. Cardiomegaly. Reviewed, dictated and finalized at location A.
--- NOTE | ~2020-11-24 | US_ITS ---
EXAMINATION: US carotid duplex BI DATE: 11/24/2020 15:45 INDICATION: Altered mental status TECHNIQUE: Grayscale, color Doppler, and pulsed Doppler images of the cervical carotid arteries were obtained. The degree of vessel stenosis is placed in one of the following categories: normal, <50%, 5 0-69%, >=70% but less than near-occlusion, near-occlusion, or total occlusion. Note that percent sten osis relative to normal distal artery lumen diameter is indirectly measured from velocity measurement s as described by Marquise, et al. Radiology 2003; 229:340-346. COMPARISON: 04/28/2019 FINDINGS: RIGHT: The right common carotid artery (CCA) peak systolic velocity (PSV) is 143 cm/s. The right internal ca rotid artery (ICA) PSV is 149 cm/s. The right ICA end-diastolic velocity (EDV) is 21 cm/s. The right ICA/CCA PSV ratio is 1.0. Grayscale and color Doppler images yield an estimate of 50-69% diameter red uction from plaque in the ICA. The external carotid artery (ECA) PSV is 212 cm/s. There is antegrade flow in the right vertebral artery. LEFT: The left CCA PSV is 90 cm/s. The left ICA PSV is 226 cm/s. The left ICA EDV is 24 cm/s. The left ICA/ CCA PSV ratio is 2.5. Grayscale and color Doppler images yield an estimate of >=70% (but less than ne ar occlusion) diameter reduction from plaque in the ICA. The ECA PSV is 214 cm/s. There is antegrade flow in the left vertebral artery. IMPRESSION: 1. 50-69% stenosis in the right internal carotid artery. 2. >=70% (but less than near occlusion) stenosis in the left internal carotid artery. Reviewed, dictated and finalized at location A. IMPRESSION: 1. 50-69% stenosis in the right internal carotid artery. 2. >=70% (but less than near occlusion) stenosis in the left internal carotid a rtery.
--- NOTE | ~2020-11-24 | CT_ITS ---
EXAMINATION: CT brain wo con INDICATION: Headache and confusion COMPARISON: 02/10/2019 TECHNIQUE: Standard unenhanced head CT. The dose-length product (DLP) was 605.33 mGy-cm. The mA was a djusted according to patient size. Iterative reconstruction technique was employed. FINDINGS: There is no acute intraparenchymal hemorrhage. No evidence of mass lesion. No evidence of a cute infarction. There is mild periventricular and subcortical hypodensity probably related to small vessel ischemic disease. There is mild prominence of the sulci and ventricles related to cerebral atr ophy. Intracranial calcified cerebral atherosclerosis is noted. There are no extra-axial collections. There is no mass effect or midline shift. Changes in the globes are likely from ocular lens surgery. There is mild mucosal thickening of the paranasal sinuses. IMPRESSION: 1. No acute intracranial abnormality. 2. Age related findings. Reviewed, dictated and finalized at location A.
--- NOTE | 2020-11-24 05:56 | ECG_ITS ---
Measurements Intervals [place] Rate: 88 P: -47 KS: 156 QRS: -70 QRSD: 153 T: 59 QT: 415 QTc: 503 Interpretive Statements SINUS RHYTHM RIGHT BUNDLE BRANCH BLOCK LEFT ANTERIOR FASCICULAR BLOCK BASELINE ARTIFACT- I, II, III, AVR, AVL, AVF, V1-V6 ABNORMAL ECG Electronically Signed On 11-24-2020 6:31:53 CDT by Lokesh Smith D.O.
--- NOTE | 2020-11-24 06:02 | ED.GENADULT ---
HPI - General Adult General Chief complaint: Unspecified <Rahul Mei MD - Last Filed: 11/24/20 07:10> Stated complaint: weakness, cp, pain all over <Rahul Mei MD - Last Filed: 11/24/20 07:10> Time Seen by Provider: 11/24/20 05:52 <Rahul Mei MD - Last Filed: 11/24/20 07:10> History of Present Illness HPI narrative: Patient is a 74-year-old male who presents ER with weakness and falling. Per patient's he has been becoming more weak over the last 5 days. Over the weekend patient had episodes of uncontrolled diarrhea very defecated on the floor and had some projectile vomiting. He has also become incontinent of urine at night and there bed. Today he got out of bed and fell into the closet and then when EMS was coming fell once again. Patient just reports diffuse body aching that is 3/10. No specific area of discomfort. reports he had some chest pain prior to EMS coming but is unsure if it is related to the fall. Patient does not recall this. Patient does take Eliquis. No visual evidence of trauma to the head but patient is unsure if he struck his head. reports he has been having headache for the last couple days has been frontal and has moved to the right side. <Rahul Mei MD - Last Filed: 11/24/20 07:10> Related Data Home medications: Home Medications Medication Instructions Recorded Confirmed allopurinol 300 mg PO DAILY 02/10/19 11/05/20 atorvastatin 40 mg PO HS 02/10/19 11/05/20 calcitriol 0.5 mcg PO MOWEFR 02/10/19 11/05/20 carbidopa-levodopa 25 - 250 tablet PO BID 02/10/19 11/05/20 carbidopa-levodopa 50 - 200 tablet PO BID 02/10/19 11/05/20 docusate sodium [Colace] 100 mg PO BID 02/10/19 11/05/20 fluticasone propionate 2 spray INTRANASAL DAILY PRN 02/10/19 11/05/20 ketoconazole 1 applic TOPICAL 3XW 02/10/19 11/05/20 lorazepam 0.5 mg PO Q6H PRN 02/10/19 11/05/20 melatonin 5 mg PO HS 02/10/19 11/05/20 oxybutynin chloride 5 mg PO HS 02/10/19 11/05/20 tamsulosin 0.4 mg PO HS 02/10/19 11/05/20 ropinirole 0.25 mg tablet 0.125 mg PO HS tablet 08/19/19 11/05/20 apixaban 2.5 mg tablet 2.5 mg PO BID 10/01/19 11/05/20 polyethylene glycol 3350 17 17 gm PO BID PRN gm 10/01/19 11/05/20 gram/dose oral powder sennosides 8.6 mg tablet 8.6 mg PO DAILY PRN tablet 10/01/19 11/05/20 fluocinonide 0.05 % topical cream 1 applic TOPICAL DAILY PRN 12/17/19 11/05/20 insulin regular human 100 unit/mL See Rx Instructions SUBCUT 12/17/19 11/05/20 injection solution .COMPLEX ml latanoprost 0.005 % eye drops 1 drop EACH EYE QPM 12/17/19 11/05/20 tacrolimus 1 mg capsule, 1 mg PO Q12H cap 12/17/19 11/05/20 immediate-release bumetanide 2 mg PO HS PRN 05/17/20 11/05/20 insulin glargine [Lantus U-100 20 unit SUBCUT BID 05/17/20 11/05/20 Insulin] pyridoxine (vitamin B6) 100 mg PO DAILY 05/17/20 11/05/20 venlafaxine 75 mg PO HS 05/17/20 11/05/20 B complex with C 20-folic acid 1 cap PO DAILY 06/24/20 11/05/20 [Triphrocaps] aspirin 81 mg PO DAILY 06/24/20 11/05/20 brimonidine 1 drp EACH EYE TID 06/24/20 11/05/20 isosorbide dinitrate 20 mg PO TID 06/24/20 11/05/20 prednisone 5 mg PO DAILY 06/24/20 11/05/20 prucalopride [Motegrity] 2 mg PO DAILY 06/24/20 11/05/20 sodium bicarbonate 20 g BID 06/24/20 11/05/20 ferrous sulfate 325 mg (65 mg 325 mg PO DAILY 07/05/20 11/05/20 iron) tablet omeprazole 40 mg capsule,delayed 40 mg PO DAILY cap 07/05/20 11/05/20 release vitamin B complex and vitamin C 1 cap PO DAILY 07/05/20 11/05/20 no.20-folic acid 1 mg capsule hydralazine 50 mg PO TID 08/19/20 11/05/20 carvedilol 12.5 mg tablet 12.5 mg PO Q12H 11/05/20 11/08/20 po (Zingiber officinalis) 550 mg PO DAILY 11/24/20 <Rahul Mei MD - Last Filed: 11/24/20 07:10> Allergies/adverse reactions: Allergies Allergy/AdvReac Type Severity Reaction Status Date / Time trimethobenzamide Allergy Severe Loss of Verified 11/24/20 06:04 Consciousness fish oil Allerg
--- NOTE | 2020-11-24 06:17 | PC.NURSE ---
Per at bedside, pt has been experiencing generalized weakness and headache since 11/19. also reports slight cough and intermittent diarrhea and projectile vomiting. Pt had 2 unwitnessed falls at approx 0130 and 0330 this AM. Pt denies hitting head or LOC.
--- NOTE | 2020-11-24 06:31 | PC.NURSE ---
Pt to [facility] via stretcher at this time
[2020-11-24 06:53] LABS: Add Urine Microscopic? YES; Appearance Urine Clear (Clear); Bilirubin Urine Negative (Negative); Blood Urine 1+ (Negative); Color Urine Yellow (Yellow); Glucose Urine UA 2+ mg/dL (Negative); Ketones Urine Negative (Negative); Leukocyte Esterase Ur Negative LEU/UL (Negative); Nitrate Urine Negative (Negative); Protein Urine 3+ mg/dL (Negative); RBC Urine 21-50 /hpf (0-2); Specific Grav Ur 1.022 (1.001-1.035); Squamous Epithelial Cell Urine Rare /hpf (Few); Urobilinogen Urine Negative mg/dL (<2.0); WBC Urine 0-3 /hpf
[2020-11-24 07:20] LABS: Basophils Percent Auto 0.4 % (0.2-1.2); Eosinophils Percent Auto 0.1 % (0-4.4); Hematocrit 37.8 % (42.0-52.0); Hemoglobin 12.4 g/dL (14.0-18.0); Immature Granulocyte Absolute 0.03 K/mm3 (0.00-0.031); Immature Granulocyte Percent A 0.4 % (0-0.5); Immature Platelet Fraction Pct 4.3 % (0.9-11.2); Lymphocytes Absolute Auto 2.43 K/mm3 (0.9-3.2); Mean Corpuscular HGB Conc 32.8 g/dl (32-36); Mean Corpuscular Hemoglobin 31.6 pg (26-34); Mean Corpuscular Volume 96.4 fl (80-100); Mean Platelet Volume 11.7 fl (7.4-10.4); Monocytes Absolute Auto 0.9 K/mm3 (0.1-0.6); Monocytes Percent Auto 11.7 % (2.6-8.5); Neutrophils Absolute Auto 4.2 K/mm3 (1.3-6.7); Neutrophils Percent Auto 55.4 % (45.5-73.1); Platelet Count Result 106 k/mm3 (150-375); Red Blood Count 3.92 M/mm3 (4.6-6.20); Red Cell Distribution Width 16.1 % (11.5-14.5); White Blood Count 7.6 K/mm3 (4.5-10.0)
[2020-11-24 07:28] LABS: INR 1.1; Prothrombin Time 14.5 Seconds (11.1-14.7)
[2020-11-24 07:29] LABS: Albumin Level 3.6 g/dL (3.5-5.1); Alkaline Phosphatase 80 U/L (38-126); Anion Gap 5 mmol/L (8-16); Aspartate Amino Transferase 26 U/L (17-59); Bilirubin,Total 1.1 mg/dL (0.2-1.3); Blood Urea Nitrogen 44 mg/dL (9-20); Calcium 8.7 mg/dL (8.4-10.2); Carbon Dioxide 22 mmol/L (22-30); Chloride 105 mmol/L (98-107); Estimated Glomerular Filt Rate 21; Glucose 157 mg/dL (65-110); Lipase 14 U/L (23-300); Potassium 4.6 mmol/L (3.4-5.0); Sodium 132 mmol/L (137-145)
[2020-11-24 07:40] LABS: Partial Thromboplastin Time 36.4 SECONDS (22.3-36.8)
[2020-11-24 07:45] LABS: NT Pro B Type Natriuretic Pept > 35000 pg/mL (5-100); Troponin I 0.073 ng/mL (0.000-0.034)
[2020-11-24] MEDS: FUROSEMIDE INJ 40 MG/4 ML VIAL 20 MG IV PUSH (07:57)
[2020-11-24 09:18] LABS: Alanine Aminotransferase < 6 U/L (4-50)
[2020-11-24] MEDS: LACTATED RINGERS 1,000 ML 999 ML IV CONT (10:14)
[2020-11-24] MEDS: MORPHINE SULFATE (*CRX) 2 MG/ML INJ IV PUSH (10:14)
[2020-11-24] MEDS: PROMETHAZINE HCL 25 MG/ML AMPUL 12.5 MG IV PUSH (10:15)
[2020-11-24] MEDS: LABETALOL HCL INJ 100 MG/20 ML VIAL 10 MG IV PUSH (10:57)
--- NOTE | 2020-11-24 11:07 | PC.NURSE ---
covid swab sent to lab
--- NOTE | 2020-11-24 12:31 | ADMGEN ---
This patient, Maris Almeida, was admitted to [facility] Surg Room 302-01. Patient/family oriented to hospital policies and general routines including ID bracelet, bed and alarms, visiting hours, pain management, procedures, bathroom and other care routines, personal items, smoking policy, room service/diet, and visiting hours. Information on how to activate the Rapid Response Team has been discussed. Patient/Family are encouraged to report perceived risks to care and to ask questions if they do not understand what they are told or what they should do. Minerva Gonzalez RN.
[2020-11-24 12:34] LABS: Glucose Point of Care 147 mg/dl (65-105)
--- NOTE | 2020-11-24 12:56 | PM.IMHP ---
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 The patient came to the emergency room with complaints of weakness and falling. The patient had previously been in the emergency room on 11/17/2020 after falling and he sustained a bruise to his left arm at that time. The patient has become more weak over the last 5 days. He has had episodes of uncontrolled diarrhea and some projectile vomiting. The patient fell once again since his trip to the emergency room on the . The patient also complained of some chest pain prior to EMS coming but no longer complains of any chest pain. The patient does not take Eliquis. He had no evidence of any trauma to his head. The patient has been complaining of having headache the last couple days which started in the front and moved to the right side. His H&H is noted to be 12.4 and 37.8. Platelet count 106. Sodium 132. Creatinine is 3.0 which is his baseline with a BUN 44. His blood sugar was noted to be 157 and then 147. Troponin 0.0730 in a patient with chronic renal disease. BNP was greater than 35,000. Head CT was noted to be no acute intracranial abnormality. Age-related findings per radiology read. Chest x-ray was read as cardiomegaly with mild pulmonary edema. Small pleural effusion. ED provider noted the following note: Discussed with his renal transplant doctor at [facility], Dr. Shepherd, he advised admission at this hospital since they do not have any beds, IV fluid at 75 cc an hour, and symptomatic treatment. He states that for any concern or if his condition worsens, call him and he will accept the transfer. The patient was given IV Lasix, lactated Ringer, morphine, Phenergan and labetalol for elevated blood pressure. Patient is being admitted for observation status on the service on 11/24/2020. Chief Complaint: ams Review of Systems Review of Systems: ROS unobtainable: Yes unobtainable due to mental status Constitutional: Constitutional: Reports as per HPI and Reports no additional constitutional complaints Eyes: Eyes: Reports as per HPI and Reports no additional eye complaints ENT: Reports system reviewed and no additional complaints, except as documented and Reports Normal hearing present Cardiovascular: Cardiovascular: Reports no additional cardiovascular complaints Respiratory: Respiratory: Reports no additional respiratory complaints and Reports no additional respiratory complaints Gastrointestinal: Gastrointestinal: Reports as per HPI and Reports no additional gastrointestinal complaints Musculoskeletal: Musculoskeletal: Reports no additional musculoskeletal complaints Integumentary/Breasts: Skin/Breast: Reports system reviewed and no additional complaints, except as docu and Reports as per HPI Neurologic: Reports system reviewed and no additional complaints, except as documented, Reports as per HPI and Reports Normal hearing present Psychiatric: Psychiatric: Reports no additional psychiatric complaints and Reports as per HPI Endocrine: Endocrine: Reports no additional endocrine complaints Hematologic/Lymphatic: Hematologic/Lymphatic: Reports no additional hematologic/lymphatic complaints Allergic/Immunologic: Allergic/Immunologic: Reports no additional allergic/immunologic complaints [facility] Past Medical History Medical History (Updated 11/24/20 @ 13:33 by Gabbie Pepe NP) Anemia BPH (benign prostatic hyperplasia) CHF (congestive heart failure), NYHA class I . Left ventricular systolic function is preserved, estimated at 50-55%. 2. Left ventricular chamber dimension is normal. 3. There is moderately increased left ventricular wall thickness. 4. The left ventricular diastol
[2020-11-24 13:58] LABS: Alveolar/Arterial O2 Gradient 60.2 mmHg; Base Excess ABG -2.1 mEq/l (+/-2.0); Fractional Inspired Oxygen 21 %; HCO3 ABG 20.3 mEq/l (22.0-26.0); Oxygen Content ABG 15.7 %vol (16.0-22.0); Oxygen Saturation ABG 91.5 % (95.0-100.0); Oxyhemoglobin 88.8 % THb (90.0-100.0); PCO2 ABG 28.1 mmHg (35.0-45.0); PO2 ABG 55.9 mmHg (80.0-100.0); PO2 FiO2 Ratio Arterial Blood 2.66 %; Total Hemoglobin 12.6 g/dL (12.0-18.0); pH ABG 7.476 (7.350-7.450)
[2020-11-24 13:59] LABS: Device ROOM AIR; Modified Allen's Test Pass; Site Drawn RIGHT RADIAL
[2020-11-24] MEDS: LACTATED RINGERS 1,000 ML 75 ML IV CONT ×2 (14:52→23:45)
[2020-11-24 15:12] LABS: Troponin I 0.078 ng/mL (0.000-0.034)
[2020-11-24] MEDS: carvediloL 12.5 MG TABLET PO ×2 (16:30→20:46)
[2020-11-24] MEDS: APIXABAN 2.5 MG TABLET PO (16:31)
[2020-11-24] MEDS: calcitrioL 0.25 MCG CAPSULE 0.5 MCG PO (16:32)
[2020-11-24] MEDS: ARTIFICIAL TEARS OPHTH SOLN 15 ML BOTTLE 1 DROP EACH EYE (16:33)
[2020-11-24] MEDS: BRIMONIDINE TARTRATE 0.2% OP SOLN 5 ML BTL 1 DROP EACH EYE (16:33)
[2020-11-24] MEDS: DOCUSATE SODIUM 100 MG CAPSULE PO (16:33)
[2020-11-24] MEDS: hydrALAZINE HCL 50 MG TABLET 100 MG PO (16:34)
[2020-11-24] MEDS: ISOSORBIDE DINITRATE 20 MG TABLET PO (16:34)
[2020-11-24 17:17] LABS: Glucose Point of Care 153 mg/dl (65-105)
--- NOTE | 2020-11-24 17:30 | PC.NURSE ---
Patient has not voided all day today. Bladder scan revealed 400 cc urine in bladder. Called Gabbie Pepe NP and notified her of results. Orders received for cerna catheter insertion. Upon entering room to insert cerna catheter, noted patient had been incontinent of a large amount of urine. Notified Gabbie Pepe NP who stated cerna catheter should still be inserted for accurate I/O. Cerna inserted with immediate return of another 400 cc urine.
--- NOTE | 2020-11-24 20:43 | PHAR ---
Home medications identified. Motegrity 2mg tablets, Tacrolimus 1mg capsules. Hannah Root 550mg tablets seen, but unidentifiable.
[2020-11-24] MEDS: TAMSULOSIN HCL 0.4 MG CAPSULE PO (20:46)
[2020-11-24] MEDS: rOPINIRole HCL 0.125 MG TABLET PO (20:46)
[2020-11-24] MEDS: VENLAFAXINE HCL XR 75 MG CAP.ER.24H PO (20:46)
[2020-11-24] MEDS: OXYBUTYNIN CHLORIDE 5 MG TABLET PO (20:46)
[2020-11-24] MEDS: ATORVASTATIN 40 MG TABLET PO (20:46)
[2020-11-24] MEDS: ACETAMINOPHEN 325 MG TABLET 650 MG PO (20:47)
[2020-11-24] MEDS: LATANOPROST 0.005% OP SOLN 2.5 ML BTL 1 DROP EACH EYE (20:49)
[2020-11-24 21:05] LABS: Glucose Point of Care 151 mg/dl (65-105)
[2020-11-24] MEDS: CARBIDOPA/LEVODOPA 25/250 MG TABLET 1 TABLET PO (23:46)
[2020-11-24] MEDS: CARBIDOPA/LEVODOPA 25/100 MG CR TABLET 2 TABLET PO (23:46)
[2020-11-25] VITALS (10 sets, daily range): BP systolic 149–186; BP diastolic 73–98; PULSE 60–100; RESP 18–20; TEMP 36.5–37.2; O2SAT 90–99
[2020-11-25 06:20] LABS: Basophils Percent Auto 0.3 % (0.2-1.2); Eosinophils Percent Auto 0.1 % (0-4.4); Hematocrit 37.5 % (42.0-52.0); Hemoglobin 12.1 g/dL (14.0-18.0); Immature Granulocyte Absolute 0.02 K/mm3 (0.00-0.031); Immature Granulocyte Percent A 0.3 % (0-0.5); Immature Platelet Fraction Pct 5.2 % (0.9-11.2); Lymphocytes Absolute Auto 2.28 K/mm3 (0.9-3.2); Lymphocytes Percent Auto 30.6 % (18.3-44.2); Mean Corpuscular HGB Conc 32.3 g/dl (32-36); Mean Corpuscular Hemoglobin 31.5 pg (26-34); Mean Corpuscular Volume 97.7 fl (80-100); Monocytes Absolute Auto 0.7 K/mm3 (0.1-0.6); Monocytes Percent Auto 9.5 % (2.6-8.5); Neutrophils Absolute Auto 4.4 K/mm3 (1.3-6.7); Neutrophils Percent Auto 59.2 % (45.5-73.1); Platelet Count Result 96 k/mm3 (150-375); Red Blood Count 3.84 M/mm3 (4.6-6.20); White Blood Count 7.5 K/mm3 (4.5-10.0)
[2020-11-25 06:31] LABS: Lactic Acid Reflex 0.8 mmol/L (0.7-2.1)
[2020-11-25 06:54] LABS: Albumin Level 3.3 g/dL (3.5-5.1); Alkaline Phosphatase 69 U/L (38-126); Anion Gap 14 mmol/L (8-16); Aspartate Amino Transferase 30 U/L (17-59); Bilirubin,Total 1.3 mg/dL (0.2-1.3); Blood Urea Nitrogen 48 mg/dL (9-20); Calcium 8.7 mg/dL (8.4-10.2); Carbon Dioxide 21 mmol/L (22-30); Chloride 101 mmol/L (98-107); Estimated CRCL calculation 22 ml/min; Estimated Glomerular Filt Rate 20; Glucose 137 mg/dL (65-110); Magnesium 1.8 mg/dL (1.6-2.3); Potassium 4.7 mmol/L (3.4-5.0); Sodium 136 mmol/L (137-145)
[2020-11-25 07:08] LABS: Lactate Dehydrogenase 586 U/L (313-618)
[2020-11-25] MEDS: FERROUS SULFATE 324 MG TABLET PO (08:20)
[2020-11-25] MEDS: hydrALAZINE HCL 50 MG TABLET 100 MG PO ×3 (08:21→17:39)
[2020-11-25] MEDS: allopurinoL 300 MG TABLET PO (08:21)
[2020-11-25] MEDS: ASPIRIN 81 MG CHEWABLE TABLET PO (08:22)
[2020-11-25] MEDS: APIXABAN 2.5 MG TABLET PO ×2 (08:22→17:39)
[2020-11-25] MEDS: PYRIDOXINE HCL 50 MG TABLET 100 MG PO (08:24)
[2020-11-25] MEDS: ISOSORBIDE DINITRATE 20 MG TABLET PO ×3 (08:24→17:39)
[2020-11-25] MEDS: DOCUSATE SODIUM 100 MG CAPSULE PO ×2 (08:24→17:39)
[2020-11-25] MEDS: BUMETANIDE 1 MG TABLET PO (08:24)
[2020-11-25] MEDS: carvediloL 12.5 MG TABLET PO ×2 (08:24→21:04)
[2020-11-25] MEDS: predniSONE 5 MG TABLET PO (08:25)
[2020-11-25] MEDS: VITAMIN B CMPLX/VIT C/FOLIC AC 1 CAPSULE 1 CAP PO (08:25)
[2020-11-25] MEDS: PANTOPRAZOLE 40 MG TABLET PO (08:25)
[2020-11-25] MEDS: BRIMONIDINE TARTRATE 0.2% OP SOLN 5 ML BTL 1 DROP EACH EYE ×3 (08:25→17:39)
[2020-11-25] MEDS: SODIUM BICARBONATE TAB 650 MG TABLET 1300 MG PO ×2 (08:25→17:40)
[2020-11-25] MEDS: ARTIFICIAL TEARS OPHTH SOLN 15 ML BOTTLE 1 DROP EACH EYE ×3 (08:26→17:39)
--- NOTE | 2020-11-25 08:40 | PC.NURSE ---
Patient with blood sugar in the 120s. Appetite poor but improved today. Remains on clear liquids. Ate Ensure Clear, jello and broth for breakfast. Called Dr. Steen and notified of blood sugar and appetite - discussed Lantus and scheduled mealtime insulin. Orders received. Also notified Dr. Steen of O2 sat of 88% on room air and patient placed on O2 at 2 liters per nasal cannula.
[2020-11-25 09:01] LABS: Alanine Aminotransferase < 6 U/L (4-50)
[2020-11-25 09:07] LABS: Glucose Point of Care 122 mg/dl (65-105)
--- NOTE | 2020-11-25 09:23 | PCOTNOTE ---
Pt. on bedrest, spoke with nurse regarding order change, nurse reports she will speak with doctor and update order as needed
--- NOTE | 2020-11-25 11:09 | PCOTNOTE ---
Spoke with Nurse, still awaiting for consult from to take off bedrest orders.
[2020-11-25] MEDS: LACTATED RINGERS 1,000 ML 75 ML IV CONT (11:38)
[2020-11-25] MEDS: CARBIDOPA/LEVODOPA 25/100 MG CR TABLET 2 TABLET PO ×2 (12:08→22:18)
[2020-11-25] MEDS: CARBIDOPA/LEVODOPA 25/250 MG TABLET 1 TABLET PO ×2 (12:09→22:18)
--- NOTE | 2020-11-25 12:10 | WPDNEURCNPN ---
Assessment and Plan Additional Plan history of recurrent fall with no focal motor deficit, CT scan of the head negative for the bleed, chest x-ray with cardiomegaly and mild pulmonary edema, and history of Parkinson's disease patient is receiving carbidopa levodopa 50/200 ER b.i.d. in addition to 25/251 tablet b.i.d. medication at this stage will be continued as such because I have not seen the patient before review his medication examination tomorrow in the meantime have any questions please do not hesitate to contact me Consult date: 11/25/20 Time Seen: 11:00 HPI: Maris Amleida is a 74 year old male 74 years old right-handed male has been admitted to [facility] through the emergency room patient was brought to the emergency room with complaints of weakness and falling and had been in the emergency room on November 17, 2020 as well subsequent to fall and sustaining a bruise to his left upper extremity but over the last 5 days patient has become increasingly weak in addition to the history of uncontrolled diarrhea and projectile vomiting resulting in the fall once again and trip to emergency room this time he also complained of chest pain previously to the EMS but not to the ER physician patient has been taking Eliquis his initial hemoglobin was 12.4 with hematocrit 37.8 and platelet count of 106 patient has been complaining of headaches over the last several days his creatinine was documented 3.0 with baseline BUN of 44 and blood sugar of 157 troponin 0.073 but BNP was greater than 35,000 CT scan of the head revealed no evidence of bleed chest x-ray with cardiomegaly and mild pulmonary edema with small pleural effusion case was discussed with renal transplant doctor [facility] doctor of the and he advised him to be admitted to this hospital, his past history is consistent with the congestive heart failure, diabetes mellitus, gastroparesis straight age 5, gout, history of transcatheter aortic valve replacement in May of 2020, hypertension and Parkinson disease with peripheral vascular disease and history of seizures as well as subdural hematoma he is not a smoker or drinker Review of Systems Review of Systems: All systems reviewed & are unremarkable except as noted in HPI and below PMFSH Past Medical History Medical History Anemia BPH (benign prostatic hyperplasia) CHF (congestive heart failure), NYHA class I . Left ventricular systolic function is preserved, estimated at 50-55%. 2. Left ventricular chamber dimension is normal. 3. There is moderately increased left ventricular wall thickness. 4. The left ventricular diastolic function is abnormal. 5. E/e' 20 is elevated. 6. Right ventricular systolic function is reduced based on a TAPSE 1.0 cm. 7. Left atrial chamber dimension is moderately enlarged. 8. Right atrial chamber dimension is mildly enlarged. 9. There is severe aortic valve sclerosis. 10. There is severe aortic valve stenosis with a peak velocity of 407 cm/s, mean gradient of 40 mmHg, and aortic valve area of 0.8 cm2. 11. There is mild aortic valve regurgitation. 12. The mitral valve has moderately calcified annulus. 13. There is mild tricuspid valve regurgitation. 14. Moderate pulmonary hypertension, estimated pulmonary arterial systolic pressure is 52 mmHg. Chronic renal failure, stage 3 (moderate) Depression Diabetes Dry mouth Gastroparesis Stage 4 Glaucoma Gout History of transcatheter aortic valve replacement (TAVR) 06/01/2020 HLD (hyperlipidemia) HTN (hypertension) Parkinson's disease Peripheral vascular disease Seizures Subdural hematoma From fall on 24 December 2018 Surgical History Surgical History History of biopsy rt shoulder and lt palm History of thoracentesis Hx of CABG 2007, followed by lengthy hospital stay and a second surgery x4 Renal transplant recipient 2007 Family History Fam
[2020-11-25 12:13] LABS: Glucose Point of Care 238 mg/dl (65-105)
[2020-11-25] MEDS: INSULIN ASPART (*BKC) 100 UNITS/ML SUB-Q ×2 (12:15→17:40)
--- NOTE | 2020-11-25 13:51 | PCOTNOTE ---
Addendum entered by Rehana Fink, OT 11/25/20 13:52: per nurse report Original Note: Attempted to evaluate for occupational therapy. Status has not changed from earlier in day, not appropriate for therapy at this time.
--- NOTE | 2020-11-25 15:30 | PCPTNOTE ---
Pt on hold per RN due to bedrest. Will try again at later time.
[2020-11-25 16:37] LABS: Thyroid Stimulating Hormone Reflex 0.425 uIU/mL (0.465-4.68)
[2020-11-25 16:55] LABS: Glucose Point of Care 279 mg/dl (65-105)
[2020-11-25 17:14] LABS: Free T4 Free Thyroxine Reflex 0.86 ng/dL (0.78-2.19)
--- NOTE | 2020-11-25 17:19 | PM.IMPN ---
Progress Note: A&P Assessment and Plan (1) Generalized weakness: Code(s): R53.1 - Weakness Status: Acute Assessment and Plan: Patient with diffuse weakness. There is concern of CVA on admission. CT of the brain showed no acute findings. Carotid ultrasound shows left internal carotid arteries greater than 70% stenosis with the right at 50-69%. Cannot proceed with MRA or CTA due to his renal failure. Brain MRI is ordered and is pending. Neurology has been consulted and appreciate their input. Continue aspirin and atorvastatin. Resume PT and OT. UA noted and not consistent with UTI. Patient was having fevers overnight. Could be viral; COVID test pending. Follow-up on repeat chest x-ray. Hold on antibiotics for now. Check blood cultures if fever recurs. (2) Carotid stenosis: Code(s): I65.29 - Occlusion and stenosis of unspecified carotid artery Status: Acute Assessment and Plan: Carotid ultrasound shows left ICA >70% stenosis but less than near occlusion with the right at 50-69%. Cannot proceed with MRA or CTA due to his renal failure. Continue medical management with ASA and Lipitor. Follow up on Brain MRI. (3) CHF (congestive heart failure), NYHA class I: Code(s): I50.9 - Heart failure, unspecified Status: Chronic Assessment and Plan: Patient has a history of chronic diastolic CHF. This chest x-ray on admission showed mild pulmonary edema and his BNP was greater than 35,000. However it was felt that he was dehydrated and IV fluids were started. He was however given a dose of IV Lasix as the emergency room and remains on his Bumex. Patient now hypoxic possibly related to CHF. Check chest x-ray. Consider Bumex IV to help with fluid status if chest x-ray showed worsening pulmonary edema. (4) Chronic renal failure, stage 3 (moderate): Code(s): N18.30 - Chronic kidney disease, stage 3 unspecified Status: Acute Assessment and Plan: Creatinine earlier this year ranging from 3.1-3.7. Creatinine on admission was 3.0. Patient appears to be at baseline. Will stop IV fluids. (5) Kidney transplant status: Code(s): Z94.0 - Kidney transplant status Status: Acute Assessment and Plan: Stable. Creatinine better than baseline. Continue tacrolimus and prednisone. (6) HTN (hypertension): Qualifiers: Hypertension type: essential hypertension Qualified Code(s): I10 - Essential (primary) hypertension Code(s): I10 - Essential (primary) hypertension Status: Chronic Assessment and Plan: Patient's blood pressure was reviewed on 11/25 Blood pressure remains poorly controlled. Will continue current medications with Coreg, hydralazine and Isordil. Monitor for now but consider advancing medications as needed. (7) Parkinson's disease: Code(s): G20 - Parkinson's disease Status: Chronic Assessment and Plan: Stable. Continue Sinemet. Neurology consultation ordered and appreciated (8) Diabetes: Qualifiers: Diabetes mellitus complication detail: with autonomic neuropathy Diabetes mellitus complication status: with neurologic complications Diabetes mellitus detention insulin use: with detention use Diabetes mellitus type: type 2 Qualified Code(s): E11.43 - Type 2 diabetes mellitus with diabetic autonomic (poly)neuropathy; Z79.4 - terminal supervisor (current) use of insulin Code(s): E11.9 - Type 2 diabetes mellitus without complications Status: Acute Assessment and Plan: The patient's blood glucose was reviewed on 11/25 Glucose remains well controlled. Continue AccuCheks covering with sliding scale. Hypoglycemia protocol available as needed. Insulin was held but now eating better so will resume Lantus tonight. (9) Depression: Qualifiers: Depression Type: unspecified Qualified Code(s): F32.9 - Major depressive disorder, single episode, unspe
[2020-11-25 18:38] LABS: Total Triiodothyronine (T3) 0.49 NG/ML (0.97-1.69)
[2020-11-25 19:18] LABS: SARS-CoV-2 RNA PCR Positive
[2020-11-25] MEDS: BUMETANIDE INJ 1 MG/4 ML VIAL IV PUSH (19:24)
[2020-11-25] MEDS: ATORVASTATIN 40 MG TABLET PO (21:04)
[2020-11-25] MEDS: VENLAFAXINE HCL XR 75 MG CAP.ER.24H PO (21:04)
[2020-11-25] MEDS: TAMSULOSIN HCL 0.4 MG CAPSULE PO (21:04)
[2020-11-25] MEDS: rOPINIRole HCL 0.125 MG TABLET PO (21:07)
[2020-11-25] MEDS: INSULIN GLARGINE (*BKC) 100 UNITS/ML 20 UNITS SUB-Q (21:07)
[2020-11-25] MEDS: OXYBUTYNIN CHLORIDE 5 MG TABLET PO (21:07)
[2020-11-25] MEDS: LATANOPROST 0.005% OP SOLN 2.5 ML BTL 1 DROP EACH EYE (21:08)
[2020-11-25 22:19] LABS: Glucose Point of Care 382 mg/dl (65-105)
[2020-11-26 04:00] VITALS: BP 178/79; PULSE 71; RESP 18; TEMP 36.5; O2SAT 97
[2020-11-26 06:14] LABS: Basophils Percent Auto 0.2 % (0.2-1.2); Eosinophils Percent Auto 0.4 % (0-4.4); Hematocrit 36.2 % (42.0-52.0); Hemoglobin 12.1 g/dL (14.0-18.0); Immature Granulocyte Absolute 0.02 K/mm3 (0.00-0.031); Immature Granulocyte Percent A 0.4 % (0-0.5); Immature Platelet Fraction Pct 5.7 % (0.9-11.2); Lymphocytes Absolute Auto 1.75 K/mm3 (0.9-3.2); Lymphocytes Percent Auto 30.7 % (18.3-44.2); Mean Corpuscular HGB Conc 33.4 g/dl (32-36); Mean Corpuscular Hemoglobin 31.6 pg (26-34); Mean Corpuscular Volume 94.5 fl (80-100); Mean Platelet Volume 11.8 fl (7.4-10.4); Monocytes Absolute Auto 0.5 K/mm3 (0.1-0.6); Monocytes Percent Auto 9.3 % (2.6-8.5); Neutrophils Absolute Auto 3.4 K/mm3 (1.3-6.7); Platelet Count Result 94 k/mm3 (150-375); Red Blood Count 3.83 M/mm3 (4.6-6.20); Red Cell Distribution Width 15.4 % (11.5-14.5); White Blood Count 5.7 K/mm3 (4.5-10.0)
[2020-11-26 07:57] LABS: Alanine Aminotransferase 7 U/L (4-50); Albumin Level 2.8 g/dL (3.5-5.1); Alkaline Phosphatase 58 U/L (38-126); Anion Gap 6 mmol/L (8-16); Aspartate Amino Transferase 22 U/L (17-59); Bilirubin,Total 1.1 mg/dL (0.2-1.3); Blood Urea Nitrogen 54 mg/dL (9-20); Calcium 8.1 mg/dL (8.4-10.2); Carbon Dioxide 21 mmol/L (22-30); Chloride 102 mmol/L (98-107); Estimated CRCL calculation 22 ml/min; Estimated Glomerular Filt Rate 20; Glucose 305 mg/dL (65-110); Lactate Dehydrogenase 520 U/L (313-618); Magnesium 1.7 mg/dL (1.6-2.3); Phosphorus 4.5 mg/dL (2.5-4.5); Potassium 4.1 mmol/L (3.4-5.0); Sodium 129 mmol/L (137-145)
[2020-11-26 08:11] LABS: CRP 17.5 mg/dL (<1.0)
[2020-11-26] MEDS: BUMETANIDE 1 MG TABLET PO (08:20)
[2020-11-26] MEDS: SODIUM BICARBONATE TAB 650 MG TABLET 1300 MG PO (08:20)
[2020-11-26] MEDS: allopurinoL 300 MG TABLET PO (08:20)
[2020-11-26] MEDS: ARTIFICIAL TEARS OPHTH SOLN 15 ML BOTTLE 1 DROP EACH EYE ×2 (08:20→12:11)
[2020-11-26] MEDS: hydrALAZINE HCL 50 MG TABLET 100 MG PO ×2 (08:20→12:11)
[2020-11-26] MEDS: BRIMONIDINE TARTRATE 0.2% OP SOLN 5 ML BTL 1 DROP EACH EYE ×2 (08:20→12:12)
[2020-11-26 08:21] VITALS: PULSE 77
[2020-11-26] MEDS: carvediloL 12.5 MG TABLET PO (08:21)
[2020-11-26] MEDS: FERROUS SULFATE 324 MG TABLET PO (08:22)
[2020-11-26] MEDS: ISOSORBIDE DINITRATE 20 MG TABLET PO ×2 (08:22→12:11)
[2020-11-26] MEDS: APIXABAN 2.5 MG TABLET PO (08:22)
[2020-11-26] MEDS: PYRIDOXINE HCL 50 MG TABLET 100 MG PO (08:22)
[2020-11-26] MEDS: VITAMIN B CMPLX/VIT C/FOLIC AC 1 CAPSULE 1 CAP PO (08:22)
[2020-11-26] MEDS: ASPIRIN 81 MG CHEWABLE TABLET PO (08:22)
[2020-11-26] MEDS: PANTOPRAZOLE 40 MG TABLET PO (08:22)
[2020-11-26] MEDS: predniSONE 5 MG TABLET PO (08:23)
[2020-11-26] MEDS: DOCUSATE SODIUM 100 MG CAPSULE PO (08:23)
[2020-11-26 08:30] VITALS: BP 170/81; PULSE 77; RESP 24; TEMP 36.6; O2SAT 93
[2020-11-26] MEDS: INSULIN ASPART (*BKC) 100 UNITS/ML SUB-Q ×3 (08:37→12:11)
[2020-11-26 09:08] LABS: Glucose Point of Care 270 mg/dl (65-105)
[2020-11-26] MEDS: INSULIN GLARGINE (*BKC) 100 UNITS/ML 25 UNITS SUB-Q (10:17)
[2020-11-26] MEDS: CARBIDOPA/LEVODOPA 25/100 MG CR TABLET 2 TABLET PO (10:22)
[2020-11-26] MEDS: CARBIDOPA/LEVODOPA 25/250 MG TABLET 1 TABLET PO (10:22)
--- NOTE | 2020-11-26 11:35 | WPDNEUROPN ---
Progress Note: A&P Additional Plan for the time being treatment will be continued as such, considering the large vessel disease he will followed on a regular basis on the anticoagulation therapy if at any time we have the chest recurrence of TIA then obviously further intervention will be considered if necessary Review of Systems Review of Systems: All systems reviewed & are unremarkable except as noted in HPI and below Exam Narrative: awake alert cooperative in no obvious acute distress head normocephalic, ear nose throat examination normal, heart regular, lungs clear, abdomen is soft, neurological is awake alert oriented , has no focal deficit except the subtle finding of the parkinsonian disease treatment will be continued as such Objective Data Vital Signs Vital Signs: Vital Signs - 24 hr 11/25/20 12:00 11/25/20 13:08 11/25/20 16:00 Temperature 37.2 C 36.9 C Pulse Rate 80 68 Respiratory Rate 18 20 Blood Pressure 173/88 H 164/77 H Pulse Oximetry 96 96 99 11/25/20 20:00 11/25/20 21:04 11/25/20 22:20 Temperature 36.5 C Pulse Rate 63 60 Respiratory Rate 20 Blood Pressure 149/73 H Pulse Oximetry 98 94 11/26/20 04:00 11/26/20 08:21 11/26/20 08:30 Temperature 36.5 C 36.6 C Pulse Rate 71 77 77 Respiratory Rate 18 24 H Blood Pressure 178/79 H 170/81 H Pulse Oximetry 97 93 Intake/Output Intake/Output: Intake & Output 11/23/20 11/24/20 11/25/20 11/26/20 23:59 23:59 23:59 23:59 Intake Total 1170 3510 250 Output Total 636 409 4213 Balance 820 3160 -1650 Meds/Results Medications: Active Medications Generic Name Dose Route Start Last Admin Trade Name Freq PRN Reason Stop Dose Admin Acetaminophen 650 mg 11/24/20 20:27 11/24/20 20:47 Acetaminophen 325 Mg Tablet PO 650 mg Q4H PRN Administration Fever > 100.4 Allopurinol 300 mg 11/25/20 09:00 11/26/20 08:20 Allopurinol 300 Mg Tablet PO 300 mg DAILY MARICHUY Administration Apixaban 2.5 mg 11/24/20 17:00 11/26/20 08:22 Apixaban 2.5 Mg Tablet PO 2.5 mg BID MARICHUY Administration Artificial Tears 1 drop 11/24/20 17:00 11/26/20 08:20 Artificial Tears Ophth Soln 15 Ml Bottle EACH EYE 12/24/20 17:01 1 drop TID MARICHUY Administration Aspirin 81 mg 11/25/20 09:00 11/26/20 08:22 Aspirin 81 Mg Chewable Tablet PO 12/25/20 09:01 81 mg DAILY MARICHUY Administration Atorvastatin Calcium 40 mg 11/24/20 21:00 11/25/20 21:04 Atorvastatin 40 Mg Tablet PO 40 mg HS MARICHUY Administration Brimonidine Tartrate 1 drop 11/24/20 17:00 11/26/20 08:20 Brimonidine Tartrate 0.2% Op Soln 5 Ml Btl EACH EYE 1 drop TID MARICHUY Administration Bumetanide 1 mg 11/24/20 14:50 Bumetanide 1 Mg Tablet PO HS PRN Edema in feet/legs and/or SOB Bumetanide 1 mg 11/25/20 09:00 11/26/20 08:20 Bumetanide 1 Mg Tablet PO 1 mg DAILY MARICHUY Administration Calcitriol 0.5 mcg 11/24/20 15:00 11/24/20 16:32 Calcitriol 0.25 Mcg Capsule PO 12/24/20 15:01 0.5 mcg MOWEFR MARICHUY Administration Carbidopa/Levodopa 1 tablet 11/24/20 23:00 11/26/20 10:22 Carbidopa/Levodopa 25/250 Mg Tablet PO 1 tablet 1100,2300 MARICHUY Administration Carbidopa/Levodopa 2 tablet 11/24/20 23:00 11/26/20 10:22 Carbidopa/Levodopa 25/100 Mg Cr Tablet PO 2 tablet BID@1100,2300 MARICHUY Administration Carvedilol 12.5 mg 11/24/20 14:50 11/26/20 08:21 Carvedilol 12.5 Mg Tablet PO 12.5 mg Q12HR MARICHUY Administration Clotrimazole 10 mg 11/24/20 14:50 Clotrimazole 10 Mg Troc BY MOUTH 5 TIMES DAILY PRN fungal infection Dextrose 12.5 gm 11/24/20 13:08 Dextrose 50% 25 Gm/50 Ml Syringe IV PUSH PRN PRN Hypoglycemia Protocol Docusate Sodium 100 mg 11/24/20 17:00 11/26/20 08:23 Docusate Sodium 100 Mg Capsule PO 100 mg BID MARICHUY Administration Ferrous Sulfate 324 mg 11/25/20 08:00 11/26/20 08:22 Ferrous Sulfate 324 Mg Tablet PO 324 mg DAILY@0800 [facility] Ad
[2020-11-26 12:11] LABS: Glucose Point of Care 191 mg/dl (65-105)
[2020-11-26 12:21] VITALS: BP 137/74; PULSE 76; RESP 16; O2SAT 97
[2020-11-26] MEDS: calcitrioL 0.25 MCG CAPSULE 0.5 MCG PO (15:05)
--- NOTE | 2020-11-26 15:20 | PM.DS ---
DS: Admitting Diagnosis Admitting Diagnosis Generalized weakness DS: Discharge Diagnosis Discharge Diagnosis (1) Generalized weakness: Code(s): R53.1 - Weakness Status: Acute Assessment and Plan: Patient with diffuse weakness. There was concern of CVA on admission but CT of the brain showed no acute findings. Carotid ultrasound shows left ICA >70% stenosis with the right at 50-69%. Cannot proceed with MRA or CTA due to his renal failure. Patient did have fever with SARS-CoV2 PCR returning positive. Brain MRI was ordered but unable to obtain initially then cancelled since the more likely diagnosis is COVID infection resulting in the diffuse weakness and fever. UA not consistent with UTI. Neurology was consulted and appreciate their input. We continued aspirin and atorvastatin. He worked with PT and OT. He was minimum assistance x1 with sit to stand, stand to sit and ability to transfer. Per RN, patient was walking with wheeled walker around the room. (2) COVID-19: Code(s): U07.1 - COVID-19 Status: Acute Assessment and Plan: Patient has not been feeling well since 11/19 per his . She feels the patient was exposed at an ED visit just prior to 11/19. Patient more weak and thus was brought to ED. CXR on admission showing cardiomegaly with mild pulmonary edema. He did have fever to 101.1 on the evening of admission. His COVID-19 test returned on the evening of 11/25. He did require 2L O2 on 11/25/20 but this improved after extra dose of Bumex IV and stopping the IV fluids. He has remained on room air since. Thus not a candidate for Remdesivir. Discussed with the physician who runs the infusion center and he felt pateint would be a good candidate for the monoclonal Ab therapy. The phone number will be provided for the family to arrange for this. (3) Carotid stenosis: Code(s): I65.29 - Occlusion and stenosis of unspecified carotid artery Status: Acute Assessment and Plan: Carotid ultrasound shows left ICA >70% stenosis but less than near occlusion with the right at 50-69%. Cannot proceed with MRA or CTA due to his renal failure. Continue medical management with ASA and Lipitor. Spoke with primary care provider at length about the hospital course and he stated that this actually may be chronic findings. No old images of the carotids noted here. (4) CHF (congestive heart failure), NYHA class I: Code(s): I50.9 - Heart failure, unspecified Status: Chronic Assessment and Plan: Patient has a history of chronic diastolic CHF. This chest x-ray on admission showed mild pulmonary edema and his BNP was greater than 35,000. However it was felt that he was dehydrated and IV fluids were started. He was however given a dose of IV Lasix as the emergency room and his home Bumex continued. Patient was hypoxic requiring 2L/min but hypoxia resolved after IV fluids stopped and Bumex IV x 1 given. (5) Chronic renal failure, stage 3 (moderate): Code(s): N18.30 - Chronic kidney disease, stage 3 unspecified Status: Acute Assessment and Plan: Creatinine earlier this year ranging from 3.1-3.7. Creatinine on admission was 3.0 and remained stable. Patient appears to be at baseline. (6) Kidney transplant status: Code(s): Z94.0 - Kidney transplant status Status: Acute Assessment and Plan: Stable. Creatinine better than baseline. We continued tacrolimus and prednisone. (7) HTN (hypertension): Qualifiers: Hypertension type: essential hypertension Qualified Code(s): I10 - Essential (primary) hypertension Code(s): I10 - Essential (primary) hypertension Status: Chronic Assessment and Plan: Patient's blood pressure was monitored closely and BP was elevated at times. We resumed his home medications with Coreg, hydralazine and Isordil. BP better controlled now. (8) Parkinson's disease: Code(s):
[2020-11-26 16:39] VITALS: BP 157/75; PULSE 62; RESP 20; TEMP 36.6; O2SAT 97
== END 2020-11-26 18:00 | disposition home or self-care (01) | DRG 178 ==
LOC: ANHED 10:40 → ANH3MEDSUR 11:35
PROVIDERS: Emergency Medicine; Nurse Practitioner; Admitting Provider Internal Medicine; Emergency Provider Emergency Medicine; PCP Family Medicine; Visit Provider Internal Medicine
DX: U07.1 COVID-19 (principal); I13.0 Hypertensive heart and chronic kidney disease with heart failure and stage 1 through stage 4 chronic kidney disease, or unspecified chronic kidney disease; I50.32 Chronic diastolic (congestive) heart failure; R53.1 Weakness; I25.10 Atherosclerotic heart disease of native coronary artery without angina pectoris; E11.22 Type 2 diabetes mellitus with diabetic chronic kidney disease; N18.30 Chronic kidney disease, stage 3 unspecified; G20 Parkinson's disease; E11.43 Type 2 diabetes mellitus with diabetic autonomic (poly)neuropathy; K31.84 Gastroparesis; E11.51 Type 2 diabetes mellitus with diabetic peripheral angiopathy without gangrene; I65.23 Occlusion and stenosis of bilateral carotid arteries; E78.5 Hyperlipidemia, unspecified; M10.9 Gout, unspecified; F32.9 Major depressive disorder, single episode, unspecified; D64.9 Anemia, unspecified; R56.9 Unspecified convulsions; H40.9 Unspecified glaucoma; N40.0 Benign prostatic hyperplasia without lower urinary tract symptoms; Z79.01 Long term (current) use of anticoagulants; Z79.4 Long term (current) use of insulin; Z79.899 Other long term (current) drug therapy; Z91.81 History of falling; Z95.1 Presence of aortocoronary bypass graft; Z95.2 Presence of prosthetic heart valve
CPT/HCPCS: 36415; 36600; 70450; 71045; 71046; 80053; 81001; 82805; 82948; 83605; 83615; 83690; 83735; 83880; 84100; 84439; 84443; 84480; 84484; 85025; 85055; 85610; 85730; 86140; 93005; 93880; 96361; 96374; 96375; 97161; 97165; 99285; A9270; C9803; G0378; J1815; J1940; J2270; J2550; J7120; J7512; U0003; U0005

== ENCOUNTER 2020-11-28 02:52 | Inpatient (IN) | payer MEDICARE, BC, SELFPAY ==
[2020-11-28] VITALS (30 sets, daily range): BP systolic 170–205; BP diastolic 70–113; PULSE 66–106; RESP 18–25; TEMP 36.1–38.3; O2SAT 90–95; BMI 29.6
--- NOTE | ~2020-11-28 | CT_ITS ---
EXAMINATION: CT brain wo con DATE: 11/29/2020 12:25 INDICATION: Mental status change. Confusion. TECHNIQUE: Computed tomography (CT) of the head was performed without intravenous contrast. Sagittal and coronal reconstructions were performed. The mA was adjusted according to patient size. Iterative reconstruction technique was employed. The dose-length product was 605.33 mGy-cm. COMPARISON: head CT dated 11/28/2020 FINDINGS: No acute intracranial hemorrhage, acute infarction or abnormal extra axial fluid collection. There is mild scattered white matter hypoattenuation consistent with chronic small vessel ischemic disease. S ymmetric prominence of the sulci and ventricles consistent with mild to moderate age-appropriate diff use cerebral volume loss. No mass/mass effect. Mild to moderate mucosal thickening in the paranasal s inuses most prominent in the left maxillary and bilateral ethmoid sinuses. Changes of bilateral intra ocular lens replacement. The orbits and mastoid air cells are normal. Intracranial calcified cerebral atherosclerosis is noted. IMPRESSION: 1. No acute intracranial process. 2. Age-related changes including mild to moderate diffuse volume loss and mild scattered white matter hypoattenuation consistent with chronic small vessel ischemic disease. Reviewed, dictated and finalized at location A. IMPRESSION: 1. No acute intracranial process. 2. Age-related changes including mild to moderate diffuse volume loss and mild scattered white matter hypoattenuation consistent with chronic small vessel isc hemic disease.
--- NOTE | ~2020-11-28 | CT_ITS ---
EXAMINATION: CT cervical spine wo con DATE: 11/28/2020 04:21 INDICATION: Neck injury. TECHNIQUE: Computed tomography (CT) of the cervical spine was performed without intravenous contrast. Automated exposure control and iterative reconstruction technique were employed. The dose-length pro duct was 437.75 mGy-cm. COMPARISON: None FINDINGS: There are airspace and groundglass opacities in right lung upper lobe. There is a small rig ht mastoid effusion. There is kyphosis of cervical spine. There is 2 mm anterolisthesis of C3 on C4, C4 on C5, C5 on C6, and C7 on T1. There is 5 degrees dextrocurvature of cervical spine. Vertebral bod y heights are normal. There is mildly decreased disc height at C4-C5 and C5-C6 and severely decreased disc height at C6-C7 and C7-T1. The following disc levels are specifically discussed: C2-C3: There is no uncovertebral joint osteoarthritis. There is severe bilateral facet joint osteoart hritis. There is mild left neural foraminal stenosis. There is no central canal stenosis. C3-C4: There is severe bilateral uncovertebral joint osteoarthritis. There is severe bilateral facet joint osteoarthritis. There is mild bilateral neural foraminal stenosis. There is mild central canal stenosis. C4-C5: There is mild right and moderate left uncovertebral joint osteoarthritis. There is mild right and severe left facet joint osteoarthritis. There is moderate left neural foraminal stenosis. There i s mild central canal stenosis. C5-C6: There is no uncovertebral joint osteoarthritis. There is severe right and mild left facet join t osteoarthritis. There is mild right neural foraminal stenosis. There is no central canal stenosis. C6-C7: There is severe bilateral uncovertebral joint osteoarthritis. There is moderate right and cesar re left facet joint osteoarthritis. There is mild bilateral neural foraminal stenosis. There is mild central canal stenosis. C7-T1: There is no uncovertebral joint osteoarthritis. There is severe bilateral facet joint osteoart hritis. There is mild right neural foraminal stenosis. There is no central canal stenosis. IMPRESSION: 1. No fracture. 2. Severe cervical spondylosis. 3. Airspace and groundglass opacities at right lung apex, consistent with COVID-19 pneumonia. Reviewed, dictated and finalized at location A. IMPRESSION: 1. No fracture. 2. Severe cervical spondylosis. 3. Airspace and groundglass opacities at right lung apex, consistent with COVID -19 pneumonia.
--- NOTE | ~2020-11-28 | CT_ITS ---
EXAMINATION: CT brain wo con DATE: 11/28/2020 03:17 INDICATION: Altered mental status and weakness. Fall. TECHNIQUE: Computed tomography (CT) of the head was performed without intravenous contrast. The mA wa s adjusted according to patient size. Iterative reconstruction technique was employed. The dose-lengt h product was 1210.67 mGy-cm. COMPARISON: head CT dated 11/24/2020 FINDINGS: Evaluation mildly limited by some motion artifact on both initial and repeat sets of imaging. No frac ture. No acute intracranial hemorrhage, acute infarction or abnormal extra axial fluid collection. Th ere is mild scattered white matter hypoattenuation consistent with chronic small vessel ischemic dise ase. Symmetric prominence of the sulci and ventricles consistent with mild to moderate age-appropriat e diffuse cerebral volume loss. No mass/mass effect. Mild to moderate mucosal thickening in the paran marcelo sinuses most prominent in the left maxillary and bilateral ethmoid sinuses. Changes of bilateral intraocular lens replacement. The orbits and mastoid air cells are normal. Intracranial calcified c erebral atherosclerosis is noted. IMPRESSION: 1. No fracture or acute intracranial process. 2. Age-related changes including mild to moderate diffuse volume loss and mild scattered white matter hypoattenuation consistent with chronic small vessel ischemic disease. Reviewed, dictated and finalized at location A. IMPRESSION: 1. No fracture or acute intracranial process. 2. Age-related changes including mild to moderate diffuse volume loss and mild scattered white matter hypoattenuation consistent with chronic small vessel isc hemic disease.
--- NOTE | ~2020-11-28 | XR_ITS ---
EXAMINATION: XR chest 1V portable EXAM DATE: 12/06/2020 08:26 INDICATION: COVID SOB . TECHNIQUE: Portable AP frontal chest x-ray was obtained. Comparison is made to prior examination from 12/01/2020, 11/28/2020. FINDINGS: Diffuse bilateral airspace disease consistent with COVID pneumonia, relative sparing of the left upper lobe. Mild progression in these opacities compared to previous 2 exams. No pneumothorax o r pleural effusion. Sternotomy wires are present without findings to suggest sternal dehiscence. Mild cardiomegaly. There is pulmonary vascular congestion. IMPRESSION: 1. Diffuse COVID pneumonia, mild progression. Reviewed, dictated and finalized at location B.
--- NOTE | ~2020-11-28 | XR_ITS ---
EXAMINATION: XR lumbar spine 2-3V DATE: 12/12/2020 09:55 INDICATION: Low back pain TECHNIQUE: Anteroposterior and lateral views of the lumbar spine were obtained. COMPARISON: CT, 11/28/2020 FINDINGS: There is no fracture, dislocation, or subluxation. The vertebral body heights are maintaine d. There is mild loss of intervertebral disc space height at L1-2 and L5-S1. Small degenerative osteo phytes project from the anterior endplates of multiple vertebral bodies. Mild facet osteoarthritis is noted. There is calcified atherosclerosis. IMPRESSION: 1. Mild lumbar spondylosis without acute findings. Reviewed, dictated and finalized at location A.
--- NOTE | ~2020-11-28 | MR_ITS ---
EXAMINATION: MR brain/brain stem wo con DATE: 12/01/2020 15:02 INDICATION: Altered mental status. TECHNIQUE: Magnetic resonance imaging (MRI) of the brain and brainstem was performed without intraven ous contrast. Sequences included sagittal and axial T1-weighted FSE, axial diffusion-weighted FS EPI, axial T2*-weighted GRE, axial T2-weighted FLAIR Propeller, and axial T2-weighted Propeller. Apparent diffusion coefficient (ADC) maps were created. COMPARISON: Brain MRI 04/28/2019, head CT 11/29/2020 FINDINGS: There is diffuse brain volume loss. There are scattered areas of nonspecific increased T2-w eighted signal intensity in the cerebral white matter and otoniel, which is within normal limits for the patient's age. There is no intracranial hemorrhage, acute infarction, or abnormal intracranial mass lesion. The ventricles are normal in size. There is mucosal thickening in the paranasal sinuses. Ther e are likely changes of ocular lens replacement surgeries. There are small bilateral mastoid effusion s. IMPRESSION: 1. Normal aging brain. Reviewed, dictated and finalized at location A. IMPRESSION: 1. Normal aging brain.
--- NOTE | ~2020-11-28 | US_ITS ---
EXAMINATION: US renal BI DATE: 12/03/2020 08:53 INDICATION: Decreased kidney function. 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 COMPARISON: CT abdomen and pelvis 11/28/2020 FINDINGS: The left-sided transplant kidney measures 11.4 x 5.1 x 6.3 cm. Renal parenchymal echogenicity is norm al. No hydronephrosis. The transplant vein is patent. The tree and shrub worker artery waveform is normal. There are normal resistive indices in the transplant kidney. IMPRESSION: 1. Normal transplant kidney. No hydronephrosis. Reviewed, dictated and finalized at location A.
--- NOTE | ~2020-11-28 | CT_ITS ---
EXAMINATION: CT abdomen pelvis wo con DATE: 11/28/2020 04:21 INDICATION: Abdominal pain post fall TECHNIQUE: Computed tomography (CT) of the abdomen and pelvis was performed without intravenous contr ast. Automated exposure control and iterative reconstruction technique were employed. The dose-length product was 1346.23 mGy-cm. COMPARISON: 05/16/2020 FINDINGS: Small posteriorly layering right pleural effusion. Chronic mild pleural thickening with minimal calci fied pleural plaques at the posterolateral left lower lobe. Curvilinear discoid atelectasis/scarring at the lingula. Mild patchy consolidation groundglass opacity in the anterolateral left lower lobe an d small peripheral region of groundglass opacity anterolateral right lower lobe which could represent pneumonia including COVID pneumonia, atelectasis or pulmonary infarct. Cardiomegaly. Partially visua lized aortic valve repair. Atherosclerotic coronary artery calcifications. Median sternotomy wires wh ich can be seen on radiograph dated 10/23/2019 preceding the aortic valve repair suggesting possible c oronary artery bypass grafting. Liver, gallbladder and bilateral adrenal glands are normal. Mild fatty atrophy of the pancreas. A few splenic calcifications, several punctate consistent with old granulomatous disease and additional mo re curvilinear calcification which could represent sequela of prior infection, infarct or trauma. Mod erate atrophy of the bilateral [place] kidneys. 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 Diffuse mild bladder wall thickening with subtle haziness to the surrounding fat which cou ld be related to outlet obstruction from the enlarged prostate or cystitis either acute or chronic. M ild wall thickening at the distal sigmoid colon and rectum consistent with mild distal colitis. Mable l appendix. No free intraperitoneal gas or fluid. No pathologically enlarged abdominal or pelvic lymp hadenopathy. There is calcified atherosclerosis of the aorta and many of the other arteries. Mild tho racolumbar spondylosis with bridging osteophytes at multiple levels consistent with diffuse idiopathi c skeletal hyperostosis (DISH). Mild diffuse body wall edema. IMPRESSION: 1. Wall thickening along the distal sigmoid colon and rectum consistent with a distal colitis which c ould be infectious, inflammatory, ischemic in etiology or stercoral colitis no bowel obstruction. 2. Diffuse mild bladder wall thickening with mild haziness to the surrounding fat which could be due to cystitis either acute or chronic or due to chronic outlet obstruction from the enlarged prostate. 3. Airspace disease in the bilateral lower lobes which could represent pneumonia including COVID pneu monia, pulmonary infarct or atelectasis. 4. Small right pleural effusion. 5. Cardiomegaly. Reviewed, dictated and finalized at location A. IMPRESSION: 1. Wall thickening along the distal sigmoid colon and rectum consistent with a distal colitis which could be infectious, inflammatory, ischemic in etiology or stercoral colitis no bowel obstruction. 2. Diffuse mild bladder wall thickening with mild haziness to the surrounding f at which could be due to cystitis either acute or chronic or due to chronic out let obstruction from the enlarged prostate. 3. Airspace disease in the bilateral lower lobes which could represent pneumoni a including COVID pneumonia, pulmonary infarct or atelectasis. 4. Small right pleural effusion. 5. Cardiomegaly.
--- NOTE | ~2020-11-28 | XR_ITS ---
EXAMINATION: XR chest 1V DATE: 11/28/2020 03:26 INDICATION: Transient alteration of awareness TECHNIQUE: frontal view of the chest was obtained. COMPARISON: Chest radiograph dated 11/25/2020 FINDINGS: Right lung remains clear. Persistent opacity at the lateral left lower lung zone. Resolution of prior pulmonary edema. No pleural effusion or pneumothorax. Cardiomegaly with change of prior median massey otomy and aortic valve repair. IMPRESSION: 1. Unchanged opacities in the lateral left lower lung zone which could represent atelectasis, pneumon ia or pulmonary infarct. 2. Cardiomegaly. Reviewed, dictated and finalized at location A. IMPRESSION: 1. Unchanged opacities in the lateral left lower lung zone which could represen t atelectasis, pneumonia or pulmonary infarct. 2. Cardiomegaly.
--- NOTE | ~2020-11-28 | XR_ITS ---
EXAMINATION: XR chest 1V portable INDICATION: Shortness of breath TECHNIQUE: Portable AP chest at 1231 hours COMPARISON: 11/28/2020 FINDINGS: There are patchy bilateral airspace opacities. Opacity in the left lung base demonstrates s light improvement. There is worsening opacity of the left midlung zone. Cardiomegaly is noted. There is no pneumothorax. Median sternotomy wires are consistent with prior cardiac surgery. There are hunt ges of endoluminal aortic valve replacement. IMPRESSION: 1. Diffuse lung disease, consistent with pneumonia and/or pulmonary edema. Reviewed, dictated and finalized at location B.
--- NOTE | ~2020-11-28 | XR_ITS ---
EXAMINATION: XR abdomen obstructive series EXAM DATE: 12/16/2020 08:35 INDICATION: Diffuse abdominal discomfort . TECHNIQUE: Frontal upright projection of the upper abdomen, frontal projection of the lower abdomen f or interpretation. Correlation is made to CT abdomen pelvis 11/28/2020. FINDINGS: Moderately distended rectal vault, less bowel contents proximal to this. Nonobstructive bow el gas pattern. There is no organomegaly. Mild lumbar levoscoliosis. Small pleural effusions. Extensi ve bilateral airspace disease probably pneumonia. Sternotomy wires. IMPRESSION: 1. Moderate rectal vault distention. No obstruction. 2. Pneumonia. Reviewed, dictated and finalized at location B.
--- NOTE | ~2020-11-28 | US_ITS ---
EXAMINATION: US renal BI DATE: 12/02/2020 12:53 INDICATION: Elevated creatinine TECHNIQUE: Multiple grayscale and Doppler ultrasound images of the kidneys were obtained. COMPARISON: None. FINDINGS: The right kidney measures 6.7 x 4.2 x 3.9 cm. The left kidney measures 7.2 x 4.2 x 3.0 cm. The kidneys demonstrate increased parenchymal echogenicity. There is no hydronephrosis. The bladder i s decompressed by Davidson catheter. IMPRESSION: 1. Medical renal disease and bilateral renal atrophy. Reviewed, dictated and finalized at location B.
--- NOTE | ~2020-11-28 | XR_ITS ---
EXAMINATION: XR chest 1V portable DATE: 12/14/2020 11:57 INDICATION: Shortness of breath. TECHNIQUE: A single frontal view of the chest was obtained. COMPARISON: Chest single view 12/06/2020, CT abdomen and pelvis 11/28/2020 FINDINGS: There are patchy airspace opacities in all lung zones bilaterally. There is a small left pl eural effusion or pleural thickening. No pneumothorax. Cardiomegaly is noted. There are changes of ao rtic valve replacement. IMPRESSION: 1. Diffuse lung disease with mild interval improvement, consistent with pneumonia or less likely pulm onary edema. 2. Stable small left pleural effusion versus pleural thickening. 3. Cardiomegaly. Reviewed, dictated and finalized at location A. IMPRESSION: 1. Diffuse lung disease with mild interval improvement, consistent with pneumon ia or less likely pulmonary edema. 2. Stable small left pleural effusion versus pleural thickening. 3. Cardiomegaly.
--- NOTE | ~2020-11-28 | XR_ITS ---
MODIFIED ESOPHAGRAM HISTORY: Aspiration TECHNIQUE: Modified barium esophagram was performed on 11/29/2020. I administered fluoroscopy and perfo rmed the exam with speech pathologist. Patient was seated for lateral fluoroscopic imaging for inges tion of thin liquids, pudding, solids and quantified amounts, followed by thin liquids in uncontrolle d amounts. This was recorded on tape. A single fluoroscopic spot image was also recorded. The DAP for this procedure was 4.21 Gycm2. The amount of fluoroscopy time used during this procedure was 5.0 min utes. FINDINGS: Oral stage: Adequate function but with prominent bolus holding prior to the swallow with all consiste ncies. Pharyngeal stage: Adequate function. Cervical/esophageal stage: Adequate function. IMPRESSION: Patient tolerated regular consistency oral feedings in the upright position. Please gladis elate with speech pathologist findings and specific feeding recommendations. Reviewed, dictated and finalized at location A. IMPRESSION: Patient tolerated regular consistency oral feedings in the upright position. Please correlate with speech pathologist findings and specific feedi ng recommendations.
--- NOTE | 2020-11-28 03:12 | PC.NURSE ---
Patient in CT.
[2020-11-28 03:16] LABS: Basophils Percent Auto 0.3 % (0.2-1.2); Eosinophils Percent Auto 0.1 % (0-4.4); Hematocrit 37.1 % (42.0-52.0); Hemoglobin 12.5 g/dL (14.0-18.0); Immature Granulocyte Absolute 0.02 K/mm3 (0.00-0.031); Immature Granulocyte Percent A 0.3 % (0-0.5); Immature Platelet Fraction Pct 5.8 % (0.9-11.2); Lymphocytes Absolute Auto 1.47 K/mm3 (0.9-3.2); Mean Corpuscular HGB Conc 33.7 g/dl (32-36); Mean Corpuscular Hemoglobin 31.6 pg (26-34); Mean Corpuscular Volume 93.9 fl (80-100); Mean Platelet Volume 11.7 fl (7.4-10.4); Monocytes Absolute Auto 0.5 K/mm3 (0.1-0.6); Monocytes Percent Auto 6.7 % (2.6-8.5); Neutrophils Absolute Auto 5.4 K/mm3 (1.3-6.7); Neutrophils Percent Auto 72.6 % (45.5-73.1); Platelet Count Result 98 k/mm3 (150-375); Red Blood Count 3.95 M/mm3 (4.6-6.20); Red Cell Distribution Width 15.4 % (11.5-14.5); White Blood Count 7.4 K/mm3 (4.5-10.0)
[2020-11-28 03:24] LABS: Alanine Aminotransferase 7 U/L (4-50); Albumin Level 3.5 g/dL (3.5-5.1); Alkaline Phosphatase 66 U/L (38-126); Anion Gap 9 mmol/L (8-16); Aspartate Amino Transferase 38 U/L (17-59); Bilirubin,Total 1.1 mg/dL (0.2-1.3); Blood Urea Nitrogen 62 mg/dL (9-20); Calcium 8.7 mg/dL (8.4-10.2); Carbon Dioxide 19 mmol/L (22-30); Chloride 103 mmol/L (98-107); Estimated CRCL calculation 21 ml/min; Estimated Glomerular Filt Rate 18; Glucose 92 mg/dL (65-110); INR 1.2; Potassium 4.6 mmol/L (3.4-5.0); Prothrombin Time 15.3 Seconds (11.1-14.7); Sodium 131 mmol/L (137-145)
[2020-11-28 03:25] LABS: Partial Thromboplastin Time 46.2 SECONDS (22.3-36.8)
[2020-11-28 03:27] LABS: Creatine Kinase 164 U/L (55-170)
[2020-11-28 03:52] LABS: Add Urine Microscopic? YES; Appearance Urine Cloudy (Clear); Bacteria Urine 4+ /hpf; Bilirubin Urine Negative (Negative); Blood Urine 1+ (Negative); Color Urine Amber (Yellow); Glucose Urine UA Negative (Negative); Ketones Urine Trace mg/dL (Negative); Leukocyte Esterase Ur 2+ LEU/UL (Negative); Mucus Urine Rare /lpf; Nitrate Urine Negative (Negative); Protein Urine 3+ mg/dL (Negative); RBC Urine 21-50 /hpf (0-2); Squamous Epithelial Cell Urine Rare /hpf (Few); Urobilinogen Urine Negative mg/dL (<2.0); WBC Urine >75 /hpf
[2020-11-28] MEDS: SODIUM CHLORIDE 0.9% IV 1,000 ML 999 ML IV CONT (04:01)
--- NOTE | 2020-11-28 04:25 | ED.GENADULT ---
HPI - General Adult General Chief complaint: Unspecified Stated complaint: failure to thrive Time Seen by Provider: 11/28/20 02:58 Source: RN notes reviewed History of Present Illness HPI narrative: Patient presents to emergency department from home via EMS for weakness. Patient has a history of recent admission to the the hospital with diagnosis of Covid per the patient's is present the patient went home yesterday patient has been weak at home today he has been complaining all day about feeling that he needs to use the restroom patient has had a episode of incontinence at home but frequently would try to go the bathroom and could not go for the she did have a Davidson catheter on is here in the hospital those removed today before he left this evening patient had to get to the bathroom and fell and at that time the called EMS states patient does have history of kidney transplant Related Data Home Medications Medication Instructions Recorded Confirmed allopurinol 300 mg PO DAILY 02/10/19 11/24/20 atorvastatin 40 mg PO HS 02/10/19 11/24/20 calcitriol 0.5 mcg PO MOWEFR 02/10/19 11/24/20 carbidopa-levodopa 25 - 250 tablet PO BID 02/10/19 11/24/20 carbidopa-levodopa 50 - 200 tablet PO BID 02/10/19 11/24/20 docusate sodium [Colace] 100 mg PO BID 02/10/19 11/24/20 fluticasone propionate 2 spray INTRANASAL DAILY PRN 02/10/19 11/24/20 ketoconazole 1 applic TOPICAL 3XW 02/10/19 11/24/20 lorazepam 0.5 mg PO Q6H PRN 02/10/19 11/24/20 melatonin 5 mg PO HS PRN 02/10/19 11/24/20 oxybutynin chloride 5 mg PO HS 02/10/19 11/24/20 tamsulosin 0.4 mg PO HS 02/10/19 11/24/20 ropinirole 0.25 mg tablet 0.125 mg PO HS tablet 08/19/19 11/24/20 apixaban 2.5 mg tablet 2.5 mg PO BID 10/01/19 11/24/20 polyethylene glycol 3350 17 17 gm PO BID PRN gm 10/01/19 11/24/20 gram/dose oral powder sennosides 8.6 mg tablet 8.6 mg PO DAILY PRN tablet 10/01/19 11/24/20 fluocinonide 0.05 % topical cream 1 applic TOPICAL DAILY PRN 12/17/19 11/24/20 insulin regular human 100 unit/mL See Rx Instructions SUBCUT 12/17/19 11/24/20 injection solution .COMPLEX ml latanoprost 0.005 % eye drops 1 drop EACH EYE QPM 12/17/19 11/24/20 tacrolimus 1 mg capsule, 1 mg PO Q12H cap 12/17/19 11/24/20 immediate-release Lantus U-100 Insulin 20 unit SUBCUT HS 05/17/20 11/24/20 bumetanide 1 mg PO HS PRN 05/17/20 11/24/20 venlafaxine 75 mg PO HS 05/17/20 11/24/20 Motegrity 2 mg PO DAILY 06/24/20 11/24/20 aspirin 81 mg PO DAILY 06/24/20 11/24/20 brimonidine 1 drp EACH EYE TID 06/24/20 11/24/20 isosorbide dinitrate 20 mg PO TID 06/24/20 11/24/20 prednisone 5 mg PO DAILY 06/24/20 11/24/20 sodium bicarbonate 20 g PO DAILY 06/24/20 11/24/20 ferrous sulfate 325 mg (65 mg 325 mg PO DAILY 07/05/20 11/24/20 iron) tablet omeprazole 40 mg capsule,delayed 40 mg PO DAILY cap 07/05/20 11/24/20 release hydralazine 100 mg PO TID 08/19/20 11/24/20 carvedilol 12.5 mg tablet 12.5 mg PO Q12H 11/05/20 11/24/20 Triphrocaps 1 cap PO DAILY 11/24/20 11/24/20 artificial tears solution 1 drp OPHTHALMIC (EYE) TID 11/24/20 11/24/20 bumetanide 1 mg PO DAILY 11/24/20 11/24/20 clindamycin phosphate 1 applic TOPICAL BID PRN 11/24/20 11/24/20 clotrimazole See Rx Instructions .ROUTE 11/24/20 11/24/20 .COMPLEX PRN po (Zingiber officinalis) 550 mg PO BID 11/24/20 11/24/20 insulin glargine 25 unit SUBCUT DAILY 11/24/20 11/24/20 mometasone 1 applic TOPICAL BID PRN 11/24/20 11/24/20 mupirocin 1 applic TOPICAL TID PRN 11/24/20 11/24/20 pyridoxine (vitamin B6) 100 mg PO DAILY 11/24/20 11/24/20 Allergies Allergy/AdvReac Type Severity Reaction Status Date / Time trimethobenzamide Allergy Severe Loss of Verified 11/28/20 05:04 Consciousness fish oil Allergy Mild Rash Verified 11/28/20 05:04 diphenhydramine Allergy Unknown aggi Verified 11/28/20 05:04 levofloxacin Allergy Unknown Hives Verified 11/28/20 05:04 NSAIDS (Non-Steroidal Allergy Unknown renal Verified 11/28/20 05:04 Anti-Inflamma insuff metoclopram
[2020-11-28 04:46] LABS: Lactic Acid Reflex 0.9 mmol/L (0.7-2.1)
--- NOTE | 2020-11-28 05:46 | PC.NURSE ---
Patient's contacted to inform her of the patient's admission and room number of [id number].
[2020-11-28] MEDS: SODIUM CHLORIDE 0.9% IV 1,000 ML 100 ML IV CONT (06:29)
--- NOTE | 2020-11-28 06:44 | ADMGEN ---
This patient, Maris Almeida, was admitted to [facility] Surg Room 321-01. Patient/family oriented to hospital policies and general routines including ID bracelet, bed and alarms, visiting hours, pain management, procedures, bathroom and other care routines, personal items, smoking policy, room service/diet, and visiting hours. Information on how to activate the Rapid Response Team has been discussed. Patient/Family are encouraged to report perceived risks to care and to ask questions if they do not understand what they are told or what they should do.
--- NOTE | 2020-11-28 08:01 | PM.IMHP ---
H&P: [facility] History of Present Illness Date/Time: 11/28/20 08:01 Chief Complaint: weakness, COVID Narrative: Pt is a 74-year-old male with a past medical history of coronary artery disease, Parkinson's, history of [place] in 2007, CHF, AFib, aortic stenosis treated with TAVR, hypertension, chronic kidney disease with renal transplant in 2007, diabetes who was admitted to the hospitalist service for COVID recently. Patient started experiencing symptoms November 19, 2020 and was hospitalized from November 24 to November 26. He required oxygen for a very short time and was able to be weaned off. He did not receive remdesivir due to chronic kidney disease. It was reported that he did have a Davidson catheter during the hospitalization which was removed. He was doing well and was discharged on 11/26 but came back 11/28 due to weakness and fall. On admission today patient states he is here for COVID symptoms. Although alert and oriented x4, he cannot really recall the specifics of what brought him into the emergency room but he states he was just very weak and has no appetite. He has a slight headache, cough and feels achy. He denies any SOB at this time. He also mentions that he has muscular chest pain that hurts when he coughs or when he palpates the area. He has no pressure-like chest pain. He is very chilled and keeps shivering but thinks the room is cold. He denies nausea, vomiting, fevers, leg pain, abdominal pain, dysuria, or hematuria. He does not know how he got the bruise on his left arm. EMR states the patient was admitted for failure to thrive and was altered at the time. Review of Systems Review of Systems: All systems reviewed & are unremarkable except as noted in HPI and below [facility] Past Medical History Medical History (Updated 11/28/20 @ 11:42 by Elvira Aly PA-C) Afib Anemia BPH (benign prostatic hyperplasia) CHF (congestive heart failure), NYHA class I . Left ventricular systolic function is preserved, estimated at 50-55%. 2. Left ventricular chamber dimension is normal. 3. There is moderately increased left ventricular wall thickness. 4. The left ventricular diastolic function is abnormal. 5. E/e' 20 is elevated. 6. Right ventricular systolic function is reduced based on a TAPSE 1.0 cm. 7. Left atrial chamber dimension is moderately enlarged. 8. Right atrial chamber dimension is mildly enlarged. 9. There is severe aortic valve sclerosis. 10. There is severe aortic valve stenosis with a peak velocity of 407 cm/s, mean gradient of 40 mmHg, and aortic valve area of 0.8 cm2. 11. There is mild aortic valve regurgitation. 12. The mitral valve has moderately calcified annulus. 13. There is mild tricuspid valve regurgitation. 14. Moderate pulmonary hypertension, estimated pulmonary arterial systolic pressure is 52 mmHg. Chronic renal failure, stage 3 (moderate) Coronary artery disease Depression Diabetes Dry mouth Gastroparesis Stage 4 Glaucoma Gout History of [place] (myocardial infarction) 2007 with bypass February 2008 History of transcatheter aortic valve replacement (TAVR) 06/01/2020 HLD (hyperlipidemia) HTN (hypertension) Parkinson's disease Peripheral vascular disease Seizures Trauma induced following fall Subdural hematoma From fall on 24 December 2018 Surgical History Surgical History (Updated 11/28/20 @ 11:42 by Elvira Aly PA-C) History of biopsy rt shoulder and lt palm History of kidney transplant 2007 History of thoracentesis Hx of CABG 2007, followed by lengthy hospital stay and a second surgery x4 Renal transplant recipient 2007 Family History Family History Father Family history of malignant neoplasm of stomach Mother Diabetes mellitus Grandparent Family history of cardiovascular disease Diabetes mellitus Sibling Crohn's disease Brain aneurysm Social History Social History (Reviewed
[2020-11-28 08:58] LABS: Glucose Point of Care 88 mg/dl (65-105)
[2020-11-28] MEDS: ISOSORBIDE DINITRATE 20 MG TABLET PO ×3 (10:13→18:21)
[2020-11-28] MEDS: CARBIDOPA/LEVODOPA 25/100 MG CR TABLET 2 TABLET PO ×2 (10:13→21:09)
[2020-11-28] MEDS: predniSONE 5 MG TABLET PO (10:13)
[2020-11-28] MEDS: ASPIRIN 81 MG ENTERIC TABLET PO (10:13)
[2020-11-28] MEDS: SODIUM BICARBONATE TAB 650 MG TABLET PO (10:13)
[2020-11-28] MEDS: CARBIDOPA/LEVODOPA 25/250 MG TABLET 1 TABLET PO ×2 (10:13→18:20)
[2020-11-28] MEDS: hydrALAZINE HCL 25 MG TABLET 75 MG PO ×3 (10:13→18:19)
[2020-11-28] MEDS: carvediloL 12.5 MG TABLET PO ×2 (10:14→18:19)
[2020-11-28] MEDS: BUMETANIDE 1 MG TABLET PO (10:14)
[2020-11-28] MEDS: APIXABAN 2.5 MG TABLET PO ×2 (10:14→18:21)
[2020-11-28] MEDS: allopurinoL 300 MG TABLET PO (10:14)
[2020-11-28] MEDS: PANTOPRAZOLE 40 MG TABLET PO ×2 (10:14→21:09)
[2020-11-28 11:35] LABS: Glucose Point of Care 142 mg/dl (65-105)
--- NOTE | 2020-11-28 15:01 | PCRCNOTE ---
Spoke with Pt. about wearing a CPAP at night. Pt. states he used to wear a CPAP at home but no longer wears one.
[2020-11-28] MEDS: metroNIDAZOLE 500 MG/ISO 100ML 500 MG/100 ML BAG 100 MG IVPB ×2 (15:21→21:09)
[2020-11-28 16:28] LABS: Glucose Point of Care 177 mg/dl (65-105)
[2020-11-28] MEDS: LATANOPROST 0.005% OP SOLN 2.5 ML BTL 1 DROP EACH EYE (21:09)
[2020-11-28] MEDS: VENLAFAXINE HCL XR 75 MG CAP.ER.24H PO (21:09)
[2020-11-28] MEDS: TAMSULOSIN HCL 0.4 MG CAPSULE PO (21:09)
[2020-11-28] MEDS: rOPINIRole HCL 0.125 MG TABLET PO (21:09)
[2020-11-28] MEDS: ATORVASTATIN 40 MG TABLET PO (21:09)
[2020-11-28 21:20] LABS: Glucose Point of Care 156 mg/dl (65-105)
[2020-11-28] MEDS: INSULIN GLARGINE (*BKC) 100 UNITS/ML 10 UNITS SUB-Q (21:20)
[2020-11-29] VITALS (8 sets, daily range): BP systolic 135–185; BP diastolic 63–92; PULSE 71–100; RESP 18–21; TEMP 36.6–37.8; O2SAT 92–97
[2020-11-29 00:23] LABS: Glucose Point of Care 139 mg/dl (65-105)
[2020-11-29] MEDS: metroNIDAZOLE 500 MG/ISO 100ML 500 MG/100 ML BAG 100 MG IVPB ×3 (05:20→21:28)
[2020-11-29 07:29] LABS: Basophils Percent Auto 0.2 % (0.2-1.2); Hematocrit 33.4 % (42.0-52.0); Hemoglobin 11.6 g/dL (14.0-18.0); Immature Granulocyte Absolute 0.06 K/mm3 (0.00-0.031); Immature Granulocyte Percent A 0.6 % (0-0.5); Lymphocytes Absolute Auto 1.18 K/mm3 (0.9-3.2); Lymphocytes Percent Auto 12.6 % (18.3-44.2); Mean Corpuscular HGB Conc 34.7 g/dl (32-36); Mean Corpuscular Hemoglobin 31.5 pg (26-34); Mean Corpuscular Volume 90.8 fl (80-100); Mean Platelet Volume 10.2 fl (7.4-10.4); Monocytes Absolute Auto 0.5 K/mm3 (0.1-0.6); Monocytes Percent Auto 5.2 % (2.6-8.5); Neutrophils Absolute Auto 7.6 K/mm3 (1.3-6.7); Neutrophils Percent Auto 81.4 % (45.5-73.1); Platelet Count Result 99 k/mm3 (150-375); Red Blood Count 3.68 M/mm3 (4.6-6.20); Red Cell Distribution Width 14.6 % (11.5-14.5); White Blood Count 9.3 K/mm3 (4.5-10.0)
[2020-11-29 07:45] LABS: Alanine Aminotransferase 6 U/L (4-50); Albumin Level 2.9 g/dL (3.5-5.1); Alkaline Phosphatase 59 U/L (38-126); Anion Gap 8 mmol/L (8-16); Aspartate Amino Transferase 37 U/L (17-59); Bilirubin,Total 0.7 mg/dL (0.2-1.3); Blood Urea Nitrogen 59 mg/dL (9-20); Calcium 8.3 mg/dL (8.4-10.2); Carbon Dioxide 17 mmol/L (22-30); Chloride 106 mmol/L (98-107); Estimated CRCL calculation 19 ml/min; Estimated Glomerular Filt Rate 19; Glucose 128 mg/dL (65-110); Potassium 4.5 mmol/L (3.4-5.0); Sodium 131 mmol/L (137-145)
[2020-11-29 08:06] LABS: Magnesium 1.6 mg/dL (1.6-2.3); Phosphorus 4.1 mg/dL (2.5-4.5)
[2020-11-29 08:20] LABS: Glucose Point of Care 129 mg/dl (65-105)
[2020-11-29] MEDS: hydrALAZINE HCL 25 MG TABLET 75 MG PO ×2 (09:50→17:28)
[2020-11-29] MEDS: CARBIDOPA/LEVODOPA 25/250 MG TABLET 1 TABLET PO ×2 (09:51→17:28)
[2020-11-29] MEDS: predniSONE 5 MG TABLET PO (09:51)
[2020-11-29] MEDS: ISOSORBIDE DINITRATE 20 MG TABLET PO ×2 (09:51→17:28)
[2020-11-29] MEDS: carvediloL 12.5 MG TABLET PO ×2 (09:51→17:29)
[2020-11-29] MEDS: allopurinoL 300 MG TABLET PO (09:51)
[2020-11-29] MEDS: ASPIRIN 81 MG ENTERIC TABLET PO (09:51)
[2020-11-29] MEDS: calcitrioL 0.25 MCG CAPSULE 0.5 MCG PO (09:51)
[2020-11-29] MEDS: APIXABAN 2.5 MG TABLET PO ×2 (09:52→17:29)
[2020-11-29] MEDS: SODIUM BICARBONATE TAB 650 MG TABLET PO (09:52)
[2020-11-29] MEDS: PANTOPRAZOLE 40 MG TABLET PO ×2 (09:52→21:29)
--- NOTE | 2020-11-29 10:36 | PM.IMPN ---
Progress Note: A&P Assessment and Plan (1) Altered mental status: Qualifiers: Altered mental status type: unspecified Qualified Code(s): R41.82 - Altered mental status, unspecified Code(s): R41.82 - Altered mental status, unspecified Status: Acute Assessment and Plan: Neuro exam by ED physician: 'awake and alert x 1. Following commands, speech normal, no focal deficits'. Admitting provider's exam read as 'alert and Oriented x4 . CN 2-12 intact. No focal neurological deficits. Strength 5/5 upper and lower extremities'. Currently patient with diffuse (slightly worse on the right but exam difficult) weakness and now patient nonverbal. He is currently on ASA and Eliquis. CT brain 11/28 showing no acute changes. Labs are not significantly changed. TSH noted but FT4 normal. Mediation related (Flagyl?) vs COVID vs UTI vs CVA vs PD. Will start neuro checks and have neurology consulted. Check stat CT brain. Most likely will need MRI. Add B12/folate to next blood draw (2) Generalized weakness: Code(s): R53.1 - Weakness Status: Acute Assessment and Plan: Patient with diffuse weakness at last admission. Workup showing carotid stenosis but CT brain negative for acute process. He worked with PT and OT and was minimum assistance x1 at discharge. Patient returns due to increasing weakness felt related to COVID and now UTI. Also has colitis which could be contributing. PT/OT reordered. As above (3) COVID-19: Code(s): U07.1 - COVID-19 Status: Acute Assessment and Plan: Patient became symptomatic around 11/19/20 and tested positive 11/24. Patient is vaccinated and he recieved a 3rd dose earlier in October. Currently Day 11. He needed O2 briefly last admission but he was off O2 after an extra dose of Bumex IV given. THis admission, CT Abd showing airspace disease in the bilateral lower lobes which could represent pneumonia including COVID pneumonia. [place] pulmonary infarct unlikely. Remains on room air with SpO2 mostly 94-95% (drops slightly to 92% at times when sleeping). Continue supportive care. (4) Acute UTI: Code(s): N39.0 - Urinary tract infection, site not specified Status: Acute Assessment and Plan: UA suspicious for UTI. CT Abd/Pelvis diffuse mild bladder wall thickening with mild haziness to the surrounding fat which could be due to cystitis either acute or chronic or due to chronic outlet obstruction from the enlarged prostate. He also had a Davidson placed last admission but was not discharged with one. UCx pending. Continue ceftriaxone and follow-up on UCx. Voiding trial when he is up and around. (5) Colitis: Code(s): K52.9 - Noninfective gastroenteritis and colitis, unspecified Status: Acute Assessment and Plan: CT Abd/Pelvis on admission showing distal sigmoid and rectum wall thickening consistent with a distal colitis. Flagyl added to the Rocephin. Monitor for diarrhea (6) HTN (hypertension): Qualifiers: Hypertension type: essential hypertension Qualified Code(s): I10 - Essential (primary) hypertension Code(s): I10 - Essential (primary) hypertension Status: Chronic Assessment and Plan: Patient's blood pressure was reviewed on 11/29 Blood pressure remains poorly controlled despite being on Coreg, Isordil and hydralaizne. Will continue current medications. Allow for permissive HTN until CVA can be excluded. (7) Parkinson's disease: Code(s): G20 - Parkinson's disease Status: Chronic Assessment and Plan: Most likely this is contributing to his weakness. Continue Sinemet. Neuro consult (8) Chronic renal failure, stage 3 (moderate): Code(s): N18.30 - Chronic kidney disease, stage 3 unspecified Status: Acute Assessment and Plan: Creatinine earlier this year ranging from 3.1-3.7 (except 2.5 in June and 2.8 in September). Creatinine last admission was 3.0-3.1
[2020-11-29 11:39] LABS: Glucose Point of Care 114 mg/dl (65-105)
--- NOTE | 2020-11-29 13:15 | PCSTNOTE ---
Please refer to the Modified Barium Swallow Evaluation in the EMR.
[2020-11-29] MEDS: MAGNESIUM OXIDE 400 MG TABLET PO (13:42)
[2020-11-29] MEDS: CARBIDOPA/LEVODOPA 25/100 MG CR TABLET 2 TABLET PO ×2 (13:43→23:00)
--- NOTE | 2020-11-29 15:31 | PHAR ---
HOME MEDS VERIFIED = [facility] RX [id number] TACROLIMUS 1 MG CAPS 1 CAP BID [id number] MONTEGRITY 2MG 1 TAB ONCE A DAY.
[2020-11-29 17:07] LABS: Glucose Point of Care 149 mg/dl (65-105)
[2020-11-29] MEDS: BRIMONIDINE TARTRATE 0.2% OP SOLN 5 ML BTL 1 DROP EACH EYE (17:26)
[2020-11-29] MEDS: LATANOPROST 0.005% OP SOLN 2.5 ML BTL 1 DROP EACH EYE (21:28)
[2020-11-29] MEDS: TAMSULOSIN HCL 0.4 MG CAPSULE PO (21:29)
[2020-11-29] MEDS: VENLAFAXINE HCL XR 75 MG CAP.ER.24H PO (21:29)
[2020-11-29] MEDS: ATORVASTATIN 40 MG TABLET PO (21:29)
[2020-11-29] MEDS: rOPINIRole HCL 0.125 MG TABLET PO (21:29)
[2020-11-29] MEDS: INSULIN GLARGINE (*BKC) 100 UNITS/ML 10 UNITS SUB-Q (21:30)
[2020-11-29 22:02] LABS: Glucose Point of Care 150 mg/dl (65-105)
[2020-11-30] VITALS (8 sets, daily range): BP systolic 134–160; BP diastolic 61–79; PULSE 69–80; RESP 16–20; TEMP 36.3–36.6; O2SAT 95–98
[2020-11-30] MEDS: metroNIDAZOLE 500 MG/ISO 100ML 500 MG/100 ML BAG 100 MG IVPB ×3 (05:44→21:16)
[2020-11-30 06:17] LABS: Basophils Percent Auto 0.2 % (0.2-1.2); Eosinophils Absolute Auto 0.1 K/mm3 (0-0.3); Eosinophils Percent Auto 0.9 % (0-4.4); Hemoglobin 11.7 g/dL (14.0-18.0); Immature Granulocyte Absolute 0.05 K/mm3 (0.00-0.031); Immature Granulocyte Percent A 0.6 % (0-0.5); Immature Platelet Fraction Pct 4.4 % (0.9-11.2); Lymphocytes Absolute Auto 1.31 K/mm3 (0.9-3.2); Lymphocytes Percent Auto 15.2 % (18.3-44.2); Mean Corpuscular HGB Conc 33.4 g/dl (32-36); Mean Corpuscular Hemoglobin 30.5 pg (26-34); Mean Corpuscular Volume 91.4 fl (80-100); Monocytes Absolute Auto 0.5 K/mm3 (0.1-0.6); Monocytes Percent Auto 5.6 % (2.6-8.5); Neutrophils Absolute Auto 6.7 K/mm3 (1.3-6.7); Neutrophils Percent Auto 77.5 % (45.5-73.1); Platelet Count Result 111 k/mm3 (150-375); Red Blood Count 3.83 M/mm3 (4.6-6.20); Red Cell Distribution Width 15.2 % (11.5-14.5); White Blood Count 8.6 K/mm3 (4.5-10.0)
[2020-11-30 06:42] LABS: Albumin Level 2.5 g/dL (3.5-5.1); Alkaline Phosphatase 52 U/L (38-126); Anion Gap 8 mmol/L (8-16); Aspartate Amino Transferase 41 U/L (17-59); Bilirubin,Total 0.6 mg/dL (0.2-1.3); Blood Urea Nitrogen 66 mg/dL (9-20); Calcium 8.1 mg/dL (8.4-10.2); Carbon Dioxide 18 mmol/L (22-30); Chloride 106 mmol/L (98-107); Estimated CRCL calculation 18 ml/min; Estimated Glomerular Filt Rate 18; Glucose 140 mg/dL (65-110); Magnesium 1.8 mg/dL (1.6-2.3); Phosphorus 5.2 mg/dL (2.5-4.5); Potassium 4.4 mmol/L (3.4-5.0); Sodium 132 mmol/L (137-145)
--- NOTE | 2020-11-30 07:37 | PCOTNOTE ---
The OT treatment on 11/29/20 was unable to be completed due to the holiday. Will continue plan of care.
[2020-11-30] MEDS: hydrALAZINE HCL 25 MG TABLET 75 MG PO ×3 (08:10→17:34)
[2020-11-30] MEDS: allopurinoL 300 MG TABLET PO (08:11)
[2020-11-30] MEDS: PANTOPRAZOLE 40 MG TABLET PO ×2 (08:11→21:17)
[2020-11-30] MEDS: APIXABAN 2.5 MG TABLET PO ×2 (08:12→17:31)
[2020-11-30] MEDS: ISOSORBIDE DINITRATE 20 MG TABLET PO ×3 (08:12→17:35)
[2020-11-30] MEDS: SODIUM BICARBONATE TAB 650 MG TABLET PO (08:12)
[2020-11-30] MEDS: ASPIRIN 81 MG ENTERIC TABLET PO (08:12)
[2020-11-30] MEDS: predniSONE 5 MG TABLET PO (08:13)
[2020-11-30] MEDS: carvediloL 12.5 MG TABLET PO ×2 (08:16→17:33)
[2020-11-30 08:31] LABS: Glucose Point of Care 136 mg/dl (65-105)
[2020-11-30] MEDS: CARBIDOPA/LEVODOPA 25/250 MG TABLET 1 TABLET PO ×2 (10:55→17:33)
[2020-11-30 11:28] LABS: Folic Acid > 20.0 ng/mL (2.76->20)
[2020-11-30 11:37] LABS: Alanine Aminotransferase < 6 U/L (4-50)
--- NOTE | 2020-11-30 11:52 | PM.IMPN ---
Progress Note: A&P Assessment and Plan (1) Altered mental status: Qualifiers: Altered mental status type: unspecified Qualified Code(s): R41.82 - Altered mental status, unspecified Code(s): R41.82 - Altered mental status, unspecified Status: Acute Assessment and Plan: Neuro exam by ED physician: 'awake and alert x 1. Following commands, speech normal, no focal deficits'. Admitting provider's exam read as 'alert and Oriented x4 . CN 2-12 intact. No focal neurological deficits. Strength 5/5 upper and lower extremities'. TSH noted but FT4 normal. CT brain 11/28 showing no acute changes. Yesterday, patient with diffuse weakness and patient was nonverbal. He is currently on ASA and Eliquis. Repeat CT brain again showing no acute findings. Suspect mental status changes related to the UTI. Neurology consulted. B12/folate normal. PT/OT. Follow. Left message with . (2) Generalized weakness: Code(s): R53.1 - Weakness Status: Acute Assessment and Plan: Patient with diffuse weakness at last admission. Workup showing carotid stenosis but CT brain negative for acute process. He worked with PT and OT and was minimum assistance x1 at discharge. Patient returns due to increasing weakness felt related to COVID and now UTI. Also has colitis which could be contributing. PT/OT resumed. May need placement. (3) COVID-19: Code(s): U07.1 - COVID-19 Status: Acute Assessment and Plan: Patient became symptomatic around 11/19/20 and tested positive 11/24. Patient is vaccinated and he received a 3rd dose earlier in October. Currently Day 12 of COVID from symptom onset. He needed O2 briefly last admission but he was off O2 after an extra dose of Bumex IV given. This admission, CT Abd showing airspace disease in the bilateral lower lobes which could represent pneumonia including COVID pneumonia. [place] pulmonary infarct unlikely. Remains on room air with SpO2 mostly 95-98%. Continue supportive care. (4) Acute UTI: Code(s): N39.0 - Urinary tract infection, site not specified Status: Acute Assessment and Plan: UA suspicious for UTI. CT Abd/Pelvis diffuse mild bladder wall thickening with mild haziness to the surrounding fat which could be due to cystitis either acute or chronic or due to chronic outlet obstruction from the enlarged prostate. He also had a Davidson placed last admission but was not discharged with one. UCx growing Klebsiella sensitive to Rocephin. Continue ceftriaxone. Voiding trial when he is up and around. (5) Colitis: Code(s): K52.9 - Noninfective gastroenteritis and colitis, unspecified Status: Acute Assessment and Plan: CT Abd/Pelvis on admission showing distal sigmoid and rectum wall thickening consistent with a distal colitis. Flagyl added to the Rocephin. Monitor for diarrhea (6) HTN (hypertension): Qualifiers: Hypertension type: essential hypertension Qualified Code(s): I10 - Essential (primary) hypertension Code(s): I10 - Essential (primary) hypertension Status: Chronic Assessment and Plan: Patient's blood pressure was reviewed on 11/30 Blood pressure better controlled on Coreg, Isordil and hydralaizne. Will continue current medications. (7) Parkinson's disease: Code(s): G20 - Parkinson's disease Status: Chronic Assessment and Plan: Most likely this is contributing to his weakness. Continue Sinemet. Neuro consulted (8) Chronic renal failure, stage 3 (moderate): Code(s): N18.30 - Chronic kidney disease, stage 3 unspecified Status: Acute Assessment and Plan: Creatinine earlier this year ranging from 3.1-3.7 (except 2.5 in June and 2.8 in September). Creatinine last admission was 3.0-3.1 but Cr up to 3.3 this admission. Patient appears to be at baseline overall. Cr 3.3 with BUN higher at 66 today. Bumex on hold. He has persistent metabolic acidosis
[2020-11-30 11:55] LABS: Glucose Point of Care 199 mg/dl (65-105)
[2020-11-30] MEDS: SODIUM CHLORIDE 0.9% IV 1,000 ML 100 ML IV CONT (12:27)
[2020-11-30] MEDS: CARBIDOPA/LEVODOPA 25/100 MG CR TABLET 2 TABLET PO ×2 (13:33→23:15)
[2020-11-30] MEDS: BRIMONIDINE TARTRATE 0.2% OP SOLN 5 ML BTL 1 DROP EACH EYE (17:32)
[2020-11-30 17:58] LABS: Glucose Point of Care 216 mg/dl (65-105)
[2020-11-30] MEDS: INSULIN ASPART (*BKC) 100 UNITS/ML SUB-Q (18:28)
[2020-11-30] MEDS: LATANOPROST 0.005% OP SOLN 2.5 ML BTL 1 DROP EACH EYE (21:16)
[2020-11-30] MEDS: VENLAFAXINE HCL XR 75 MG CAP.ER.24H PO (21:16)
[2020-11-30] MEDS: ATORVASTATIN 40 MG TABLET PO (21:17)
[2020-11-30] MEDS: TAMSULOSIN HCL 0.4 MG CAPSULE PO (21:17)
[2020-11-30] MEDS: rOPINIRole HCL 0.125 MG TABLET PO (21:17)
[2020-11-30] MEDS: INSULIN GLARGINE (*BKC) 100 UNITS/ML 10 UNITS SUB-Q (21:27)
[2020-11-30 21:30] LABS: Glucose Point of Care 219 mg/dl (65-105)
[2020-12-01] VITALS (9 sets, daily range): BP systolic 112–166; BP diastolic 57–96; PULSE 73–100; RESP 16–24; TEMP 36.3–37.6; O2SAT 93–97; BMI 29.6
[2020-12-01] MEDS: metroNIDAZOLE 500 MG/ISO 100ML 500 MG/100 ML BAG 100 MG IVPB ×3 (06:24→22:18)
[2020-12-01 07:13] LABS: Albumin Level 2.7 g/dL (3.5-5.1); Anion Gap 9 mmol/L (8-16); Blood Urea Nitrogen 71 mg/dL (9-20); Calcium 8.3 mg/dL (8.4-10.2); Carbon Dioxide 18 mmol/L (22-30); Chloride 106 mmol/L (98-107); Estimated CRCL calculation 18 ml/min; Estimated Glomerular Filt Rate 18; Glucose 165 mg/dL (65-110); Phosphorus 4.2 mg/dL (2.5-4.5); Potassium 4.7 mmol/L (3.4-5.0); Sodium 133 mmol/L (137-145)
[2020-12-01] MEDS: predniSONE 5 MG TABLET PO (08:48)
[2020-12-01] MEDS: BRIMONIDINE TARTRATE 0.2% OP SOLN 5 ML BTL 1 DROP EACH EYE ×3 (08:48→16:55)
[2020-12-01] MEDS: ASPIRIN 81 MG ENTERIC TABLET PO (08:48)
[2020-12-01] MEDS: hydrALAZINE HCL 25 MG TABLET 75 MG PO ×3 (08:48→16:31)
[2020-12-01] MEDS: allopurinoL 300 MG TABLET PO (08:49)
[2020-12-01] MEDS: APIXABAN 2.5 MG TABLET PO ×2 (08:49→16:32)
[2020-12-01] MEDS: ISOSORBIDE DINITRATE 20 MG TABLET PO ×3 (08:49→16:31)
[2020-12-01] MEDS: SODIUM BICARBONATE TAB 650 MG TABLET PO (08:49)
[2020-12-01] MEDS: carvediloL 12.5 MG TABLET PO ×2 (08:49→16:32)
[2020-12-01] MEDS: CARBIDOPA/LEVODOPA 25/250 MG TABLET 1 TABLET PO ×2 (08:49→16:31)
[2020-12-01 08:50] LABS: Glucose Point of Care 134 mg/dl (65-105)
[2020-12-01] MEDS: calcitrioL 0.25 MCG CAPSULE 0.5 MCG PO (08:50)
[2020-12-01] MEDS: PANTOPRAZOLE 40 MG TABLET PO ×2 (08:50→22:13)
--- NOTE | 2020-12-01 11:22 | PM.IMPN ---
Progress Note: A&P Assessment and Plan (1) Altered mental status: Qualifiers: Altered mental status type: unspecified Qualified Code(s): R41.82 - Altered mental status, unspecified Code(s): R41.82 - Altered mental status, unspecified Status: Acute Assessment and Plan: Neuro exam by ED physician: 'awake and alert x 1. Following commands, speech normal, no focal deficits'. Admitting provider's exam read as 'alert and Oriented x4 . CN 2-12 intact. No focal neurological deficits. Strength 5/5 upper and lower extremities'. TSH noted but FT4 normal. B12/folate normal. CT brain 11/28 showing no acute changes. Patient with diffuse weakness and was nonverbal on 11/[address] showing no acute changes. Neuro consulted. He remains on ASA and Eliquis. Repeat CT brain again showing no acute findings. Suspect mental status changes related to the UTI; consider also from COVID and/or uremia and/or Parkinson. Neurology consulted. Continue PT/OT. (2) Generalized weakness: Code(s): R53.1 - Weakness Status: Acute Assessment and Plan: Patient with diffuse weakness at last admission. Normally walks with walker or cane at home and was recently in therapy; he does require gait belt at times for balance issues. Workup showing carotid stenosis but CT brain negative for acute process. He worked with PT and OT and was minimum assistance x1 at discharge. Patient returns due to increasing weakness felt related to COVID and now UTI. Also has colitis which could be contributing. CT brain again showing no acute process. MBS results noted and appropriate diet has been started. Continue PT/OT. Will proceed with MRI brain. May need placement. Brain MRI pending. (3) COVID-19: Code(s): U07.1 - COVID-19 Status: Acute Assessment and Plan: Patient became symptomatic around 11/19/20 and tested positive 11/24. Patient is vaccinated and he received a 3rd dose earlier in October. Currently Day 13 of COVID from symptom onset. He needed O2 briefly last admission but he was off O2 after an extra dose of Bumex IV given. This admission, CT Abd showing airspace disease in the bilateral lower lobes which could represent pneumonia including COVID pneumonia. [place] pulmonary infarct unlikely. Remains on room air with SpO2 mostly 95-98% yesterday and 93-96% today. Continue supportive care. Repeat CXR. Check inflammatory markers. CXR reviewed personally. Improved aeration in the LLL with patchy airspace opacities bilaterally. Respiratory rate is higher but remains on room air. CRp better at 8.9 but LDH higher at 746. Steroid would make his BUN higher and unclear if CXR findings more consistent with CHF since he has been off his Bumex. Will add BNP to today's labs. (4) Acute UTI: Code(s): N39.0 - Urinary tract infection, site not specified Status: Acute Assessment and Plan: UA suspicious for UTI. CT Abd/Pelvis diffuse mild bladder wall thickening with mild haziness to the surrounding fat which could be due to cystitis either acute or chronic or due to chronic outlet obstruction from the enlarged prostate. He also had a Davidson placed last admission but was not discharged with one. Davidson replaced this admission. UCx growing Klebsiella sensitive to Rocephin. Continue ceftriaxone. Voiding trial when he is up and around. (5) Colitis: Code(s): K52.9 - Noninfective gastroenteritis and colitis, unspecified Status: Acute Assessment and Plan: CT Abd/Pelvis on admission showing distal sigmoid and rectum wall thickening consistent with a distal colitis. No diarrhea. Flagyl added to the Rocephin. Monitor. (6) HTN (hypertension): Qualifiers: Hypertension type: essential hypertension Qualified Code(s): I10 - Essential (primary) hypertension Code(s): I10 - Essential (primary) hypertension Status: Chronic Assessment and Plan: Patient's blood pressure was review
--- NOTE | 2020-12-01 11:42 | PCOTNOTE ---
Attempted to see patient, however patient refused. Pt closed eyes and turned head side to side when encouraged to participate in ADLs. Pt declined exercises responding verbally, I'm tired.
[2020-12-01 11:50] LABS: Glucose Point of Care 143 mg/dl (65-105)
[2020-12-01] MEDS: CARBIDOPA/LEVODOPA 25/100 MG CR TABLET 2 TABLET PO ×2 (12:39→22:19)
[2020-12-01] MEDS: ACETAMINOPHEN 325 MG TABLET 650 MG PO (12:40)
[2020-12-01 13:47] LABS: CRP 8.9 mg/dL (<1.0); Creatine Kinase 141 U/L (55-170); Lactate Dehydrogenase 746 U/L (313-618)
[2020-12-01] MEDS: ALBUTEROL SULFATE (*SP) AEROSOL 1 PUFF 2 PUFF INHALATION (13:55)
[2020-12-01 15:41] LABS: NT Pro B Type Natriuretic Pept 33700 pg/mL (5-100)
[2020-12-01 17:09] LABS: Glucose Point of Care 135 mg/dl (65-105)
[2020-12-01] MEDS: LORazepam (*CRX) 0.5 MG TABLET PO (17:13)
[2020-12-01] MEDS: BUMETANIDE INJ 1 MG/4 ML VIAL IV PUSH (17:15)
--- NOTE | 2020-12-01 17:18 | PM.CNNEP ---
Assessment and Plan Assessment and plan (1) Renal transplant recipient: Code(s): Z94.0 - Kidney transplant status Status: Acute Assessment and Plan: Mr. Pollock has a kidney transplant. This has lasted for about 13 years. His renal function has gradually deteriorated over the years. In June and in September his creatinine has been between 3 and 3.6 at [facility]. He is on prednisone and tacrolimus. His creatinine seems to be relatively stable compared to that although while in the hospital the creatinine has crept up slowly from 3.0-3.4. We will need to keep an eye on this. most likely causes of this mild rise in creatinine include increased catabolic rate because of his infection, COVID related inflammation, UTI. We need to get a tacrolimus level to make sure that is not too high as well. Glomerulonephritis and interstitial nephritis would be unusual in this setting. He is already on steroids. Obstruction and rhabdomyolysis are oils possibilities as well and we will rule these out. Will also check urine electrolytes. (2) COVID-19: Code(s): U07.1 - COVID-19 Status: Acute Assessment and Plan: The patient has COVID-19. He has no hypoxia. (3) Colitis: Code(s): K52.9 - Noninfective gastroenteritis and colitis, unspecified Status: Acute Assessment and Plan: The patient had colitis on CT. He is on antibiotics for this (4) Urinary tract infection: Qualifiers: Hematuria presence: without hematuria Urinary tract infection type: acute cystitis Qualified Code(s): N30.00 - Acute cystitis without hematuria Code(s): N39.0 - Urinary tract infection, site not specified Status: Acute Assessment and Plan: the patient had a positive urine culture. He is on ceftriaxone for this (5) HTN (hypertension): Qualifiers: Hypertension type: essential hypertension Qualified Code(s): I10 - Essential (primary) hypertension Code(s): I10 - Essential (primary) hypertension Status: Chronic Assessment and Plan: bp is a bit high. he is also volume overloaded. will see house blood pressure changes as we diurese. (6) Altered mental status: Qualifiers: Altered mental status type: unspecified Qualified Code(s): R41.82 - Altered mental status, unspecified Code(s): R41.82 - Altered mental status, unspecified Status: Acute Assessment and Plan: Probably related to infection, whether COVID, colitis, or UTI. (7) Iron deficiency anemia, unspecified: Code(s): D50.9 - Iron deficiency anemia, unspecified Status: Acute Assessment and Plan: Hemoglobin is mildly low. Not low enough to require GE. (8) Diabetes: Qualifiers: Diabetes mellitus type: type 2 Diabetes mellitus buttermaker insulin use: with longterm use Diabetes mellitus complication status: with neurologic complications Diabetes mellitus complication detail: with autonomic neuropathy Qualified Code(s): E11.43 - Type 2 diabetes mellitus with diabetic autonomic (poly)neuropathy; Z79.4 - FDC (current) use of insulin Code(s): E11.9 - Type 2 diabetes mellitus without complications Status: Acute Assessment and Plan: On Accu-Cheks and insulin History of Present Illness Reason for Consult Consult date: 12/01/20 Chief Complaint Chief complaint: Sepsis, UTI, COVID-19, Weakness History of Present Illness Narrative: Sammy is a very pleasant 74-year-old gentleman who has multiple medical problems including chronic kidney disease, history of a kidney transplant with a baseline creatinine between 3 and 3.6. He also has history of congestive heart failure, atrial fibrillation, aortic stenosis status post TAVR, hypertension, coronary disease, Parkinson's disease, history of CA, diabetes, gastroparesis, gout, seizures. The patient has COVID. He was diagnosed with this
[2020-12-01 17:42] LABS: Creatinine Urine 164.1 mg/dL
[2020-12-01 17:51] LABS: Sodium Urine Random 24 meq/L
[2020-12-01 18:27] LABS: Creatinine Urine 164.8 mg/dL
[2020-12-01 18:45] LABS: Creatine Kinase 136 U/L (55-170)
[2020-12-01 18:46] LABS: Total Protein Urine Random > 600 mg/dL
[2020-12-01 20:28] LABS: Eosinophil Urine None Seen % (None Seen)
[2020-12-01] MEDS: INSULIN GLARGINE (*BKC) 100 UNITS/ML 10 UNITS SUB-Q (22:03)
[2020-12-01] MEDS: rOPINIRole HCL 0.125 MG TABLET PO (22:07)
[2020-12-01] MEDS: LATANOPROST 0.005% OP SOLN 2.5 ML BTL 1 DROP EACH EYE (22:08)
[2020-12-01] MEDS: ATORVASTATIN 40 MG TABLET PO (22:14)
[2020-12-01] MEDS: TAMSULOSIN HCL 0.4 MG CAPSULE PO (22:16)
[2020-12-01] MEDS: VENLAFAXINE HCL XR 75 MG CAP.ER.24H PO (22:17)
[2020-12-02] VITALS (12 sets, daily range): BP systolic 141–180; BP diastolic 71–82; PULSE 74–86; RESP 20–21; TEMP 36.2–36.9; O2SAT 93–100
--- NOTE | 2020-12-02 | ECHO_ITS ---
Patient Info Name: Maris Almeida Age: 74 years : 1945 Gender: Male Ht: 69 in Wt: 200 lbs BSA: 2.12 m2 HR: 85 bpm BP: 141 / 72 mmHg Technical Quality: Fair Exam Date: 12/02/2020 2:51 PM Exam Location: [facility] Patient Status: Inpatient Admit Date: 11/28/2020 Staff Ordering Physician: Noman Mcelroy MD Distribution Engineering Technologist: Madison Boyer RDCS Attending Provider: Elvira Aly PA-C Referring Physician: Lilibeth AGUILA; Exam Type: CA echo doppler color flow Study Info Indications - PULMONARY INFILTRATES Complete two-dimensional, color flow and Doppler transthoracic echocardiogram is performed. Summary 1. Complete two-dimensional, color flow and Doppler transthoracic echocardiogram is performed. 2. Left ventricular chamber dimension is normal. 3. Left ventricular systolic function is normal, estimated at 55-60%. 4. There is mildly increased left ventricular wall thickness. 5. The left ventricular diastolic function is grade II diastolic dysfunction. 6. E/e' 16 is elevated. 7. Right ventricular systolic function is reduced based on abnormal TAPSE 1.1 cm. 8. Left atrial chamber dimension is mildly enlarged. 9. The bioprosthetic aortic valve is not well visualized. 10. The mitral valve has mildly calcified leaflets and mildly calcified annulus. 11. No pulmonary hypertension, estimated pulmonary arterial systolic pressure is 13 mmHg. Left Ventricle E/e' 16 is elevated. Left ventricular chamber dimension is normal. Left ventricular systolic function is normal, estimated at 55-60%. There is mildly increased left ventricular wall thickness. The left ventricular diastolic function is grade II diastolic dysfunction. Right Ventricle Right ventricular systolic function is reduced based on abnormal TAPSE 1.1 cm. Right ventricular chamber dimension is not well visualized. Left Atria Left atrial chamber dimension is mildly enlarged. Right Atria Right atrial chamber dimension is normal. Aortic Valve The bioprosthetic aortic valve is not well visualized. There is no bioprosthetic aortic valve stenosis. There is no regurgitation of the bioprosthetic aortic valve. Pulmonic Valve There is no pulmonic regurgitation. Mitral Valve The mitral valve has mildly calcified leaflets and mildly calcified annulus. There is no mitral valve stenosis. There is no mitral valve regurgitation. Tricuspid Valve There is no tricuspid valve regurgitation. No pulmonary hypertension, estimated pulmonary arterial systolic pressure is 13 mmHg. Pericardium/Pleural There is no pericardial effusion. Inferior Vena Cava Normal inferior vena cava with >50% collapse upon inspiration consistent with normal right atrial pressure, 5 mmHg. Aorta The aortic root size at the sinus of Valsalva is normal. Left Ventricular Outflow Tract Name Value Normal LVOT 2D LVOT Diameter 2.0 cm LVOT Doppler LVOT Peak Gradient 4 mmHg LVOT Mean Gradient 2 mmHg LVOT VTI 16 cm LVOT VTI/AV VTI Ratio 0.5
[2020-12-02 00:47] LABS: Glucose Point of Care 157 mg/dl (65-105)
[2020-12-02] MEDS: ALBUTEROL SULFATE (*SP) INHALER 2 PUFF INHALATION ×4 (03:15→20:34)
[2020-12-02] MEDS: metroNIDAZOLE 500 MG/ISO 100ML 500 MG/100 ML BAG 100 MG IVPB ×3 (06:03→22:06)
[2020-12-02 06:57] LABS: Basophils Percent Auto 0.3 % (0.2-1.2); Eosinophils Percent Auto 0.3 % (0-4.4); Hematocrit 35.5 % (42.0-52.0); Immature Granulocyte Absolute 0.06 K/mm3 (0.00-0.031); Immature Granulocyte Percent A 0.8 % (0-0.5); Lymphocytes Absolute Auto 1.04 K/mm3 (0.9-3.2); Lymphocytes Percent Auto 14.6 % (18.3-44.2); Mean Corpuscular HGB Conc 33.8 g/dl (32-36); Mean Corpuscular Hemoglobin 30.5 pg (26-34); Mean Corpuscular Volume 90.3 fl (80-100); Mean Platelet Volume 11.1 fl (7.4-10.4); Monocytes Absolute Auto 0.4 K/mm3 (0.1-0.6); Monocytes Percent Auto 5.8 % (2.6-8.5); Neutrophils Absolute Auto 5.6 K/mm3 (1.3-6.7); Neutrophils Percent Auto 78.2 % (45.5-73.1); Platelet Count Result 145 k/mm3 (150-375); Red Blood Count 3.93 M/mm3 (4.6-6.20); Red Cell Distribution Width 14.7 % (11.5-14.5); White Blood Count 7.1 K/mm3 (4.5-10.0)
[2020-12-02 07:34] LABS: Albumin Level 2.7 g/dL (3.5-5.1); Anion Gap 8 mmol/L (8-16); Blood Urea Nitrogen 69 mg/dL (9-20); Calcium 8.3 mg/dL (8.4-10.2); Carbon Dioxide 18 mmol/L (22-30); Chloride 106 mmol/L (98-107); Estimated CRCL calculation 17 ml/min; Estimated Glomerular Filt Rate 17; Glucose 156 mg/dL (65-110); Magnesium 1.7 mg/dL (1.6-2.3); Phosphorus 4.2 mg/dL (2.5-4.5); Potassium 4.2 mmol/L (3.4-5.0); Sodium 132 mmol/L (137-145)
[2020-12-02 08:46] LABS: Glucose Point of Care 149 mg/dl (65-105)
--- NOTE | 2020-12-02 08:51 | PM.PNNEP ---
Progress Note: A&P Assessment and Plan (1) Renal transplant recipient: Code(s): Z94.0 - Kidney transplant status Status: Acute Assessment and Plan: Mr. Pollock has a kidney transplant. This has lasted for about 13 years. His renal function has gradually deteriorated over the years. In June and in September his creatinine has been between 3 and 3.6 at [facility]. He is on prednisone and tacrolimus. Mild SUDHIR ultrasound pending CPK is okay urine electrolytes are pre renal he has lots of protein in the urine most likely superimposed elevation of creatinine is due to dehydration. I am not sure how much he is eating and drinking in this mental state. in addition he has colitis which could lead to some 3rd spacing. Will get an echocardiogram. he has pulmonary infiltrates plus pre renal azotemia. The pulmonary infiltrates could just be from the COVID. But if he has cardiomyopathy we would go defer direction in management. He has a UTI also and this plus the COVID or the colitis could be leading to a rise in creatinine as well. (2) COVID-19: Code(s): U07.1 - COVID-19 Status: Acute Assessment and Plan: The patient has COVID-19. He has no hypoxia. He does have pulmonary infiltrates (3) Colitis: Code(s): K52.9 - Noninfective gastroenteritis and colitis, unspecified Status: Acute Assessment and Plan: The patient had colitis on CT. He is on antibiotics for this (4) Urinary tract infection: Qualifiers: Hematuria presence: without hematuria Urinary tract infection type: acute cystitis Qualified Code(s): N30.00 - Acute cystitis without hematuria Code(s): N39.0 - Urinary tract infection, site not specified Status: Acute Assessment and Plan: the patient had a positive urine culture. He is on ceftriaxone for this (5) HTN (hypertension): Qualifiers: Hypertension type: essential hypertension Qualified Code(s): I10 - Essential (primary) hypertension Code(s): I10 - Essential (primary) hypertension Status: Chronic Assessment and Plan: bp is a bit high. will increase hydralazine to 100 3 times a day (6) Altered mental status: Qualifiers: Altered mental status type: unspecified Qualified Code(s): R41.82 - Altered mental status, unspecified Code(s): R41.82 - Altered mental status, unspecified Status: Acute Assessment and Plan: Probably related to infection, whether COVID, colitis, or UTI. (7) Iron deficiency anemia, unspecified: Code(s): D50.9 - Iron deficiency anemia, unspecified Status: Acute Assessment and Plan: Hemoglobin is mildly low. Not low enough to require GE. (8) Diabetes: Qualifiers: Diabetes mellitus type: type 2 Diabetes mellitus termite inspector insulin use: with residential use Diabetes mellitus complication status: with neurologic complications Diabetes mellitus complication detail: with autonomic neuropathy Qualified Code(s): E11.43 - Type 2 diabetes mellitus with diabetic autonomic (poly)neuropathy; Z79.4 - snf (current) use of insulin Code(s): E11.9 - Type 2 diabetes mellitus without complications Status: Acute Assessment and Plan: On Accu-Cheks and insulin Subjective Date/time seen: 12/02/20 08:51 Interval history: Patient is a little more interactive today. Still not very conversive though. No shortness of breath or pain. Exam Narrative: WDWN in NAD skin no rash head ncat lungs clear cor reg no rub abd BS+ nontender and soft ext no edema. Objective Data Vital Signs Vital Signs: Vital Signs - 24 hr 12/01/20 11:51 12/01/20 15:59 12/01/20 16:32 Temperature 37.2 C 36.8 C Pulse Rate 88 79 80 Respiratory Rate 24 H 21 H Blood Pressure 160/71 H 152/57 H Pulse Oximetry 94 94 12/01/20 20:00 12/01/20 20:20 12/02/20 00:00 Temper
[2020-12-02] MEDS: ACETAMINOPHEN 325 MG TABLET 650 MG PO (08:59)
[2020-12-02] MEDS: hydrALAZINE HCL 25 MG TABLET 75 MG PO (09:01)
[2020-12-02] MEDS: PANTOPRAZOLE 40 MG TABLET PO ×2 (09:01→22:05)
[2020-12-02] MEDS: SODIUM BICARBONATE TAB 650 MG TABLET PO ×2 (09:02→17:22)
[2020-12-02] MEDS: APIXABAN 2.5 MG TABLET PO ×2 (09:02→17:14)
[2020-12-02] MEDS: ISOSORBIDE DINITRATE 20 MG TABLET PO ×3 (09:02→17:23)
[2020-12-02] MEDS: CARBIDOPA/LEVODOPA 25/250 MG TABLET 1 TABLET PO ×2 (09:02→17:13)
[2020-12-02] MEDS: ASPIRIN 81 MG ENTERIC TABLET PO (09:02)
[2020-12-02] MEDS: predniSONE 5 MG TABLET PO (09:02)
[2020-12-02] MEDS: allopurinoL 300 MG TABLET PO (09:02)
[2020-12-02] MEDS: carvediloL 12.5 MG TABLET PO ×2 (09:03→17:17)
--- NOTE | 2020-12-02 11:49 | PM.IMPN ---
Progress Note: A&P Assessment and Plan (1) Altered mental status: Qualifiers: Altered mental status type: unspecified Qualified Code(s): R41.82 - Altered mental status, unspecified Code(s): R41.82 - Altered mental status, unspecified Status: Acute Assessment and Plan: Admitting provider's exam read as 'alert and Oriented x4 . CN 2-12 intact. No focal neurological deficits. Strength 5/5 upper and lower extremities'. TSH noted but FT4 normal. B12/folate normal. CT brain 11/28 showing no acute changes. Patient with diffuse weakness and was nonverbal on 11/[address] showing no acute changes. MRI brain alson showing no acute findings. He remains on ASA and Eliquis. Suspect mental status changes related to the UTI; consider also from COVID and/or uremia and/or Parkinson. Neurology consulted. Continue PT/OT. (2) Generalized weakness: Code(s): R53.1 - Weakness Status: Acute Assessment and Plan: Patient with diffuse weakness at last admission. Normally walks with walker or cane at home and was recently in therapy; he does require gait belt at times for balance issues. Workup showing carotid stenosis but CT brain negative for acute process. He worked with PT and OT and was minimum assistance x1 at discharge. Patient returned due to increasing weakness felt related to COVID and now UTI. Also has colitis which could be contributing. CT brain again showing no acute process. MBS results noted and appropriate diet has been started. Brain MRI also showing no acute process. Continue PT/OT. Related to PD? Adjust Sinemet? Neuro consult ordered. Echo ordered. (3) COVID-19: Code(s): U07.1 - COVID-19 Status: Acute Assessment and Plan: Patient became symptomatic around 11/19/20 and tested positive 11/24. Patient is vaccinated and he received a 3rd dose earlier in October. Currently Day 14 of COVID from symptom onset. He needed O2 briefly last admission but he was off O2 after an extra dose of Bumex IV given. This admission, CXR showing unchanged opacities in the lateral left lower lung zone and CT Abd showing airspace disease in the bilateral lower lobes which could represent pneumonia including COVID pneumonia. [place] pulmonary infarct unlikely. Repeat CXR showing improved aeration in the LLL with patchy airspace opacities bilaterally. CRP better at 8.9 but LDH higher at 746. Steroid would make him more uremic possibly. SpO2 borderline to require Decadron. Will proceed with Decadron for COVID and monitor closely his renal function and his mental status. Hopefully this will help his appetite. (4) Acute UTI: Code(s): N39.0 - Urinary tract infection, site not specified Status: Acute Assessment and Plan: UA was suspicious for UTI. CT Abd/Pelvis diffuse mild bladder wall thickening with mild haziness to the surrounding fat which could be due to cystitis either acute or chronic or due to chronic outlet obstruction from the enlarged prostate. He also had a Davidson placed last admission but was not discharged with one. Davidson replaced this admission. UCx growing Klebsiella sensitive to Rocephin. Continue ceftriaxone. Voiding trial when he is up and around. (5) Colitis: Code(s): K52.9 - Noninfective gastroenteritis and colitis, unspecified Status: Acute Assessment and Plan: CT Abd/Pelvis on admission showing distal sigmoid and rectum wall thickening consistent with a distal colitis. No diarrhea. Flagyl added to the Rocephin Day 5. Monitor. (6) HTN (hypertension): Qualifiers: Hypertension type: essential hypertension Qualified Code(s): I10 - Essential (primary) hypertension Code(s): I10 - Essential (primary) hypertension Status: Chronic Assessment and Plan: Patient's blood pressure was reviewed on 12/02 Blood pressure with wide swings. Hydralazine advanced. Continue Coreg, Isordil and hydralazine. (7) Parkinson's disease:
[2020-12-02 12:04] LABS: Glucose Point of Care 148 mg/dl (65-105)
[2020-12-02] MEDS: hydrALAZINE HCL 50 MG TABLET 100 MG PO ×2 (12:39→17:17)
[2020-12-02] MEDS: CARBIDOPA/LEVODOPA 25/100 MG CR TABLET 2 TABLET PO ×2 (12:40→23:00)
[2020-12-02] MEDS: BRIMONIDINE TARTRATE 0.2% OP SOLN 5 ML BTL 1 DROP EACH EYE ×2 (12:42→17:17)
[2020-12-02 16:45] LABS: Glucose Point of Care 221 mg/dl (65-105)
[2020-12-02] MEDS: DEXAMETHASONE 2 MG TABLET 6 MG PO (17:11)
[2020-12-02] MEDS: INSULIN ASPART (*BKC) 100 UNITS/ML SUB-Q (17:21)
[2020-12-02] MEDS: ATORVASTATIN 40 MG TABLET PO (22:05)
[2020-12-02] MEDS: VENLAFAXINE HCL XR 75 MG CAP.ER.24H PO (22:05)
[2020-12-02] MEDS: rOPINIRole HCL 0.125 MG TABLET PO (22:05)
[2020-12-02] MEDS: TAMSULOSIN HCL 0.4 MG CAPSULE PO (22:05)
[2020-12-02] MEDS: LATANOPROST 0.005% OP SOLN 2.5 ML BTL 1 DROP EACH EYE (22:06)
[2020-12-02] MEDS: INSULIN GLARGINE (*BKC) 100 UNITS/ML 10 UNITS SUB-Q (22:22)
[2020-12-02 23:06] LABS: Glucose Point of Care 346 mg/dl (65-105)
[2020-12-03] VITALS (7 sets, daily range): BP systolic 117–176; BP diastolic 74–87; PULSE 77–91; RESP 16–20; TEMP 36.4–36.7; O2SAT 94–98
[2020-12-03] MEDS: LORazepam (*CRX) 0.5 MG TABLET PO (01:10)
[2020-12-03] MEDS: ALBUTEROL SULFATE (*SP) INHALER 2 PUFF INHALATION ×4 (03:50→21:11)
[2020-12-03] MEDS: metroNIDAZOLE 500 MG/ISO 100ML 500 MG/100 ML BAG 100 MG IVPB ×3 (06:29→21:01)
[2020-12-03 07:15] LABS: Albumin Level 2.7 g/dL (3.5-5.1); Anion Gap 9 mmol/L (8-16); Blood Urea Nitrogen 75 mg/dL (9-20); Calcium 8.3 mg/dL (8.4-10.2); Carbon Dioxide 13 mmol/L (22-30); Chloride 105 mmol/L (98-107); Estimated CRCL calculation 17 ml/min; Estimated Glomerular Filt Rate 17; Glucose 403 mg/dL (65-110); Phosphorus 4.5 mg/dL (2.5-4.5); Potassium 4.7 mmol/L (3.4-5.0); Sodium 127 mmol/L (137-145)
[2020-12-03 08:29] LABS: Glucose Point of Care 409 mg/dl (65-105)
[2020-12-03] MEDS: INSULIN GLARGINE (*BKC) 100 UNITS/ML 15 UNITS SUB-Q ×2 (09:04→20:47)
[2020-12-03] MEDS: INSULIN ASPART (*BKC) 100 UNITS/ML SUB-Q ×3 (09:05→17:26)
[2020-12-03] MEDS: CARBIDOPA/LEVODOPA 25/250 MG TABLET 1 TABLET PO ×2 (09:10→16:47)
[2020-12-03] MEDS: allopurinoL 300 MG TABLET PO (09:10)
[2020-12-03] MEDS: ASPIRIN 81 MG ENTERIC TABLET PO (09:10)
[2020-12-03] MEDS: carvediloL 12.5 MG TABLET PO ×2 (09:11→16:48)
[2020-12-03] MEDS: ISOSORBIDE DINITRATE 20 MG TABLET PO ×3 (09:11→16:46)
[2020-12-03] MEDS: SODIUM BICARBONATE TAB 650 MG TABLET PO (09:11)
[2020-12-03] MEDS: APIXABAN 2.5 MG TABLET PO ×2 (09:11→16:47)
[2020-12-03] MEDS: hydrALAZINE HCL 50 MG TABLET 100 MG PO ×3 (09:12→16:47)
[2020-12-03] MEDS: PANTOPRAZOLE 40 MG TABLET PO ×2 (09:12→20:40)
[2020-12-03] MEDS: calcitrioL 0.25 MCG CAPSULE 0.5 MCG PO (09:13)
[2020-12-03] MEDS: DEXAMETHASONE 2 MG TABLET 6 MG PO (09:13)
[2020-12-03] MEDS: BRIMONIDINE TARTRATE 0.2% OP SOLN 5 ML BTL 1 DROP EACH EYE ×3 (09:14→16:47)
--- NOTE | 2020-12-03 10:23 | WPDNEUROPN ---
Progress Note: A&P Additional Plan stable treatment as such Review of Systems Review of Systems: All systems reviewed & are unremarkable except as noted in HPI and below Exam Const: General: cooperative, alert and ill appearing Nutritional Appearance: average body habitus Orientation/consciousness: oriented to person Limitations: physical limitations HENMT: Head: normocephalic Ears: hearing grossly normal bilaterally General nose exam: Normal external nose present Face and sinus: normal facial exam Eyes: General: appearance normal, both eyes and all related structures Neck: Neck: full ROM Resp: Auscultation: clear to auscultation bilaterally Neuro: General: oriented to person Cognition (Neuro): normal cognition Speech: normal speech Gait exam (Neuro): Unable to assess gait Sensory Exam: Sensory deficit (Neuro) Deep tendon reflexes (DTR's): Right triceps reflex intensity grade: 1+, Left triceps reflex intensity grade: 1+, Rt Biceps (C5, C6): 1+, Left biceps reflex intensity grade: 1+, Right brachioradialis reflex intensity grade: 1+, Left brachioradialis reflex intensity grade: 1+, Right patellar reflex intensity grade: 1+, Left patellar reflex intensity grade: 1+, Right ankle reflex intensity grade: 1+ and Left ankle reflex intensity grade: 1+ Plantar Reflex Responses: equivocal: bilateral Objective Data Vital Signs Vital Signs: Vital Signs - 24 hr 12/02/20 12:00 12/02/20 16:00 12/02/20 17:17 Temperature 36.7 C 36.2 C L Pulse Rate 81 83 86 Respiratory Rate 20 21 H Blood Pressure 141/72 H 145/71 H Pulse Oximetry 93 100 12/02/20 20:00 12/02/20 20:35 12/03/20 06:00 Temperature 36.6 C 36.7 C Pulse Rate 86 86 Respiratory Rate 20 20 Blood Pressure 165/79 H 176/87 H Pulse Oximetry 98 98 94 12/03/20 09:11 12/03/20 09:19 Temperature Pulse Rate 91 Respiratory Rate Blood Pressure Pulse Oximetry 98 Intake/Output Intake/Output: Intake & Output 11/30/20 12/01/20 12/02/20 12/03/20 23:59 23:59 23:59 23:59 Intake Total 6642 530 1555 470 Output Total 550 560 750 325 Balance 1500 -30 805 145 Meds/Results Medications: Active Medications Generic Name Dose Route Start Last Admin Trade Name Ahsanq PRN Reason Stop Dose Admin Acetaminophen 650 mg 12/01/20 12:01 12/02/20 08:59 Acetaminophen 325 Mg Tablet PO 650 mg Q6H PRN Administration Mild Pain (1-3) or Fever Albuterol 2 puff 12/01/20 21:10 12/03/20 09:18 Albuterol Sulfate (*Sp) Inhaler INHALATION 2 puff Q6HRT MARICHUY Administration Allopurinol 300 mg 11/28/20 09:00 12/03/20 09:10 Allopurinol 300 Mg Tablet PO 300 mg DAILY MARICHUY Administration Apixaban 2.5 mg 11/28/20 09:00 12/03/20 09:11 Apixaban 2.5 Mg Tablet PO 2.5 mg BID MARICHUY Administration Artificial Tears 1 drop 11/28/20 09:13 Artificial Tears Ophth Soln 15 Ml Bottle EACH EYE TID PRN Dry Eyes Aspirin 81 mg 11/28/20 09:15 12/03/20 09:10 Aspirin 81 Mg Enteric Tablet PO 12/28/20 09:14 81 mg DAILY MARICHUY Administration Atorvastatin Calcium 40 mg 11/28/20 21:00 12/02/20 22:05 Atorvastatin 40 Mg Tablet PO 40 mg HS MARICHUY Administration Brimonidine Tartrate 1 drop 11/28/20 13:00 12/03/20 09:14 Brimonidine Tartrate 0.2% Op Soln 5 Ml Btl EACH EYE 1 drop TID MARICHUY Administration Bumetanide 1 mg 11/28/20 09:15 11/28/20 10:14 Bumetanide 1 Mg Tablet PO 1 mg DAILY MARICHUY Administration Bumetanide 1 mg 11/28/20 09:36 Bumetanide 1 Mg Tablet PO QPM PRN SWELLING/SOB Calcitriol 0.5 mcg 11/29/20 09:00 12/03/20 09:13 Calcitriol 0.25 Mcg Capsule PO 0.5 mcg [id number]@0900 MARICHUY Administration Carbidopa/Levodopa 1 tablet 11/28/20 09:15 12/03/20 09:10 Carbidopa/Levodopa 25/250 Mg Tablet PO 1 tablet BID MARICHUY Administration Carbidopa/Levodopa 2 tablet 11/28/20 11:00 12/02/20 23:00 Carbidopa/Levodopa 25/100 Mg Cr Tablet PO 2 tablet 1100,2300 MARICHUY Administration
--- NOTE | 2020-12-03 10:49 | PM.IMPN ---
Progress Note: A&P Assessment and Plan (1) Altered mental status: Qualifiers: Altered mental status type: unspecified Qualified Code(s): R41.82 - Altered mental status, unspecified Code(s): R41.82 - Altered mental status, unspecified Status: Acute Assessment and Plan: Admitting provider's exam read as 'alert and Oriented x4 . CN 2-12 intact. No focal neurological deficits. Strength 5/5 upper and lower extremities'. TSH noted but FT4 normal. B12/folate normal. CT brain 11/28 showing no acute changes. Patient with diffuse weakness and was nonverbal on 11/[address] showing no acute changes. MRI brain 12/01 also showing no acute findings. He remains on ASA and Eliquis. Suspect mental status changes related to the UTI with slow recovery of mental status (as explained by ); consider also from COVID and/or uremia and/or Parkinson. Neurology consulted and did not recommend any changes. Continue to re-orient. (2) Generalized weakness: Code(s): R53.1 - Weakness Status: Acute Assessment and Plan: Patient with diffuse weakness at last admission. Normally walks with walker or cane at home and was recently in therapy; he does require gait belt at times for balance issues. Workup last admission showing carotid stenosis but CT brain negative for acute process. He worked with PT and OT and was minimum assistance x1 at discharge. Patient returned due to increasing weakness felt related to COVID and now UTI. Also has colitis which could be contributing. CT brain again showing no acute process. MBS results noted and appropriate diet has been started. Brain MRI also showing no acute process. Echo EF 55-60% and diastolic dysfunction grade II. Continue PT/OT. (3) COVID-19: Code(s): U07.1 - COVID-19 Status: Acute Assessment and Plan: Patient became symptomatic around 11/19/20 and tested positive 11/24. Patient is vaccinated and he received a 3rd dose earlier in October. Patient is >2 weeks out from symptom onset of COVID. He needed O2 briefly last admission but he was off O2 after an extra dose of Bumex IV given. This admission, CXR showing unchanged opacities in the lateral left lower lung zone and CT Abd showing airspace disease in the bilateral lower lobes which could represent pneumonia including COVID pneumonia. [place] pulmonary infarct unlikely. Repeat CXR showing improved aeration in the LLL with patchy airspace opacities bilaterally. CRP better at 8.9 but LDH higher at 746. Steroid should be considered if SpO2 <= 94 but concern would make him more uremic. Discussed with Chain Mender and decided to proceed with Decadron for COVID 12/02. Renal function worse today but clinically better but unclear now if this is waning UTI symptoms or improvement from COVID. Continue the same. (4) Acute UTI: Code(s): N39.0 - Urinary tract infection, site not specified Status: Acute Assessment and Plan: UA was suspicious for UTI. CT Abd/Pelvis diffuse mild bladder wall thickening with mild haziness to the surrounding fat which could be due to cystitis either acute or chronic or due to chronic outlet obstruction from the enlarged prostate. He also had a Davidson placed last admission but was not discharged with one. Davidson replaced this admission. UCx growing Klebsiella sensitive to Rocephin Day 6. Continue ceftriaxone. Voiding trial when he is up and around. (5) Colitis: Code(s): K52.9 - Noninfective gastroenteritis and colitis, unspecified Status: Acute Assessment and Plan: CT Abd/Pelvis on admission showing distal sigmoid and rectum wall thickening consistent with a distal colitis. No diarrhea. Flagyl added to the Rocephin Day 6. Monitor. (6) HTN (hypertension): Qualifiers: Hypertension type: essential hypertension Qualified Code(s): I10 - Essential (primary) hypertension Code(s): I10 - Essential (primary) hypertension Status: Chronic
[2020-12-03] MEDS: ACETAMINOPHEN 325 MG TABLET 650 MG PO (11:15)
[2020-12-03] MEDS: CARBIDOPA/LEVODOPA 25/100 MG CR TABLET 2 TABLET PO ×2 (11:18→23:04)
--- NOTE | 2020-12-03 11:53 | PM.PNNEP ---
Progress Note: A&P Assessment and Plan (1) Renal transplant recipient: Code(s): Z94.0 - Kidney transplant status Status: Acute Assessment and Plan: Mr. Pollock has a kidney transplant. This has lasted for about 13 years. His renal function has gradually deteriorated over the years. In June and in September his creatinine has been between 3 and 3.6 at [facility]. He is on prednisone and tacrolimus. Mild SUDHIR ultrasound pending CPK is okay urine electrolytes are pre renal he has lots of protein in the urine volume status is a bit confusing. Urine electrolytes are pre renal and his intake is poor. Yet he has pulmonary infiltrates and a high BNP. I checked an echo and this shows a good LV. His chest x-ray does have infiltrates but they are fairly mild any is not on oxygen. Since he is eating better then perhaps we should just keep an eye on things. I hesitate to aggressively hydrate because of the COVID and the current pulmonary infiltrates. He has a UTI also and this plus the COVID or the colitis could be leading to a rise in creatinine as well. (2) COVID-19: Code(s): U07.1 - COVID-19 Status: Acute Assessment and Plan: The patient has COVID-19. He has no hypoxia. He does have pulmonary infiltrates (3) Colitis: Code(s): K52.9 - Noninfective gastroenteritis and colitis, unspecified Status: Acute Assessment and Plan: The patient had colitis on CT. He is on antibiotics for this (4) Urinary tract infection: Qualifiers: Hematuria presence: without hematuria Urinary tract infection type: acute cystitis Qualified Code(s): N30.00 - Acute cystitis without hematuria Code(s): N39.0 - Urinary tract infection, site not specified Status: Acute Assessment and Plan: the patient had a positive urine culture. He is on ceftriaxone for this (5) HTN (hypertension): Qualifiers: Hypertension type: essential hypertension Qualified Code(s): I10 - Essential (primary) hypertension Code(s): I10 - Essential (primary) hypertension Status: Chronic Assessment and Plan: bp is a bit high. It has dropped this admission however Into the 110s. Last night it dropped in to the 140s. He is currently on hydralazine. Will try low dose amlodipine. (6) Altered mental status: Qualifiers: Altered mental status type: unspecified Qualified Code(s): R41.82 - Altered mental status, unspecified Code(s): R41.82 - Altered mental status, unspecified Status: Acute Assessment and Plan: Probably related to infection, whether COVID, colitis, or UTI. (7) Iron deficiency anemia, unspecified: Code(s): D50.9 - Iron deficiency anemia, unspecified Status: Acute Assessment and Plan: Hemoglobin is mildly low. Not low enough to require GE. 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 he is eating some breakfast. He says he wants to go home. No shortness of breath or pain. Exam Narrative: WDWN in NAD skin no rash or subcu nodules head ncat lungs clear cor reg no rub or gallop abd BS+ nontender and soft ext no edema. Objective Data Vital Signs Vital Signs: Vital Signs - 24 hr 12/02/20 12:00 12/02/20 16:0
[2020-12-03 13:09] LABS: Glucose Point of Care 394 mg/dl (65-105)
[2020-12-03] MEDS: SODIUM BICARBONATE TAB 650 MG TABLET 1300 MG PO (16:49)
[2020-12-03 16:56] LABS: Glucose Point of Care 363 mg/dl (65-105)
[2020-12-03] MEDS: SODIUM BICARBONATE 8.4% 100 MEQ in WATER, STERILE FOR INJECTION 1,000 ML 50 MEQ IV CONT (18:03)
[2020-12-03] MEDS: ATORVASTATIN 40 MG TABLET PO (20:40)
[2020-12-03] MEDS: VENLAFAXINE HCL XR 75 MG CAP.ER.24H PO (20:40)
[2020-12-03] MEDS: LATANOPROST 0.005% OP SOLN 2.5 ML BTL 1 DROP EACH EYE (20:40)
[2020-12-03] MEDS: rOPINIRole HCL 0.125 MG TABLET PO (20:40)
[2020-12-03] MEDS: TAMSULOSIN HCL 0.4 MG CAPSULE PO (20:40)
[2020-12-03] MEDS: MELATONIN 5 MG TABLET PO (20:47)
[2020-12-03 22:04] LABS: Glucose Point of Care 377 mg/dl (65-105)
[2020-12-04] VITALS (10 sets, daily range): BP systolic 143–157; BP diastolic 71–96; PULSE 72–89; RESP 18–20; TEMP 35.8–36.4; O2SAT 91–98
[2020-12-04] MEDS: metroNIDAZOLE 500 MG/ISO 100ML 500 MG/100 ML BAG 100 MG IVPB ×3 (05:36→21:37)
[2020-12-04 06:52] LABS: Basophils Percent Auto 0.1 % (0.2-1.2); Hematocrit 38.1 % (42.0-52.0); Hemoglobin 12.8 g/dL (14.0-18.0); Immature Granulocyte Absolute 0.14 K/mm3 (0.00-0.031); Immature Granulocyte Percent A 1.5 % (0-0.5); Lymphocytes Absolute Auto 0.46 K/mm3 (0.9-3.2); Lymphocytes Percent Auto 5.1 % (18.3-44.2); Mean Corpuscular HGB Conc 33.6 g/dl (32-36); Mean Corpuscular Hemoglobin 30.7 pg (26-34); Mean Corpuscular Volume 91.4 fl (80-100); Mean Platelet Volume 11.4 fl (7.4-10.4); Monocytes Absolute Auto 0.2 K/mm3 (0.1-0.6); Monocytes Percent Auto 2.4 % (2.6-8.5); Neutrophils Absolute Auto 8.2 K/mm3 (1.3-6.7); Neutrophils Percent Auto 90.9 % (45.5-73.1); Platelet Count Result 175 k/mm3 (150-375); Red Blood Count 4.17 M/mm3 (4.6-6.20); Red Cell Distribution Width 15.1 % (11.5-14.5); White Blood Count 9.1 K/mm3 (4.5-10.0)
[2020-12-04 07:04] LABS: Albumin Level 2.6 g/dL (3.5-5.1); Anion Gap 11 mmol/L (8-16); Blood Urea Nitrogen 82 mg/dL (9-20); Calcium 8.1 mg/dL (8.4-10.2); Carbon Dioxide 16 mmol/L (22-30); Chloride 104 mmol/L (98-107); Estimated CRCL calculation 17 ml/min; Estimated Glomerular Filt Rate 17; Glucose 387 mg/dL (65-110); Magnesium 1.9 mg/dL (1.6-2.3); Phosphorus 4.4 mg/dL (2.5-4.5); Potassium 4.6 mmol/L (3.4-5.0); Sodium 131 mmol/L (137-145)
[2020-12-04 08:24] LABS: Glucose Point of Care 367 mg/dl (65-105)
[2020-12-04] MEDS: INSULIN ASPART (*BKC) 100 UNITS/ML SUB-Q ×3 (08:30→17:07)
[2020-12-04] MEDS: INSULIN GLARGINE (*BKC) 100 UNITS/ML 15 UNITS SUB-Q ×2 (08:31→21:37)
[2020-12-04] MEDS: APIXABAN 2.5 MG TABLET PO ×2 (08:32→17:09)
[2020-12-04] MEDS: SODIUM BICARBONATE TAB 650 MG TABLET 1300 MG PO ×2 (08:32→17:08)
[2020-12-04] MEDS: ISOSORBIDE DINITRATE 20 MG TABLET PO ×3 (08:33→17:10)
[2020-12-04] MEDS: carvediloL 12.5 MG TABLET PO ×2 (08:33→17:10)
[2020-12-04] MEDS: DEXAMETHASONE 2 MG TABLET 6 MG PO (08:33)
[2020-12-04] MEDS: amLODIPine BESYLATE 2.5 MG TABLET PO (08:33)
[2020-12-04] MEDS: ASPIRIN 81 MG ENTERIC TABLET PO (08:34)
[2020-12-04] MEDS: BRIMONIDINE TARTRATE 0.2% OP SOLN 5 ML BTL 1 DROP EACH EYE ×3 (08:35→17:10)
[2020-12-04] MEDS: FLUTICASONE PROPIONATE 0.05% NA SPR 16 GM BTL (*BKC) 2 SPRAY NASAL (08:35)
[2020-12-04] MEDS: allopurinoL 300 MG TABLET PO (08:35)
[2020-12-04] MEDS: CARBIDOPA/LEVODOPA 25/250 MG TABLET 1 TABLET PO ×2 (08:35→17:09)
[2020-12-04] MEDS: PANTOPRAZOLE 40 MG TABLET PO ×2 (08:35→21:15)
[2020-12-04] MEDS: hydrALAZINE HCL 50 MG TABLET 100 MG PO ×3 (08:36→17:09)
[2020-12-04] MEDS: ALBUTEROL SULFATE (*SP) INHALER 2 PUFF INHALATION ×3 (09:02→20:42)
--- NOTE | 2020-12-04 11:56 | PM.PNNEP ---
Progress Note: A&P Assessment and Plan (1) Renal transplant recipient: Code(s): Z94.0 - Kidney transplant status Status: Acute Assessment and Plan: Mr. Pollock has a kidney transplant. This has lasted for about 13 years. His renal function has gradually deteriorated over the years. In June and in September his creatinine has been between 3 and 3.6 at [facility]. He is on prednisone and tacrolimus. Mild SUDHIR ultrasound pending CPK is okay urine electrolytes are pre renal he has lots of protein in the urine volume status is a bit confusing. Urine electrolytes are pre renal and his intake is poor. Yet he has pulmonary infiltrates and a high BNP. I checked an echo and this shows a good LV. His chest x-ray does have infiltrates but they are fairly mild any is not on oxygen. Since he is eating better then perhaps we should just keep an eye on things. long discussion with Dr. Steen yesterday about volume status. We decided to try a small dose of IV fluids with bicarbonate. I had another long discussion with today. his numbers are not any better. His mental status is no better. HIS COVID issues seem to be better. Wonder if he lost weight during the COVID and so his creatinine is not reflective of his true renal function. I suspect he might be uremic. This would explain the excess fluid, poor appetite, mental status changes, and failure to thrive. Will check a 24hour urine creatinine to see where we are. Consider starting dialysis Within the next couple of days depending on how he looks. (2) COVID-19: Code(s): U07.1 - COVID-19 Status: Acute Assessment and Plan: The patient has COVID-19. He has no hypoxia. He does have pulmonary infiltrates (3) Colitis: Code(s): K52.9 - Noninfective gastroenteritis and colitis, unspecified Status: Acute Assessment and Plan: The patient had colitis on CT. He is on antibiotics for this (4) Urinary tract infection: Qualifiers: Hematuria presence: without hematuria Urinary tract infection type: acute cystitis Qualified Code(s): N30.00 - Acute cystitis without hematuria Code(s): N39.0 - Urinary tract infection, site not specified Status: Acute Assessment and Plan: the patient had a positive urine culture. He is on ceftriaxone for this (5) HTN (hypertension): Qualifiers: Hypertension type: essential hypertension Qualified Code(s): I10 - Essential (primary) hypertension Code(s): I10 - Essential (primary) hypertension Status: Chronic Assessment and Plan: bp is a bit high. It has dropped this admission however Into the 110s. Last night it dropped in to the 140s. He is currently on hydralazine. his blood pressure dropped yesterday before he got any amlodipine. So this was held by Dr. Steen. (6) Altered mental status: Qualifiers: Altered mental status type: unspecified Qualified Code(s): R41.82 - Altered mental status, unspecified Code(s): R41.82 - Altered mental status, unspecified Status: Acute Assessment and Plan: Probably related to infection, whether COVID, colitis, or UTI. Consider uremia? (7) Iron deficiency anemia, unspecified: Code(s): D50.9 - Iron deficiency anemia, unspecified Status: Acute Assessment and Plan: Hemoglobin is mildly low. Not low enough to require GE. 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
[2020-12-04 12:09] LABS: Glucose Point of Care 372 mg/dl (65-105)
[2020-12-04] MEDS: CARBIDOPA/LEVODOPA 25/100 MG CR TABLET 2 TABLET PO ×2 (12:13→23:05)
--- NOTE | 2020-12-04 13:12 | PM.IMPN ---
Progress Note: A&P Assessment and Plan (1) Altered mental status: Qualifiers: Altered mental status type: unspecified Qualified Code(s): R41.82 - Altered mental status, unspecified Code(s): R41.82 - Altered mental status, unspecified Status: Acute Assessment and Plan: From previous notes -Admitting provider's exam read as 'alert and Oriented x4 . CN 2-12 intact. No focal neurological deficits. Strength 5/5 upper and lower extremities'. TSH noted but FT4 normal. B12/folate normal. CT brain 11/28 showing no acute changes. Patient with diffuse weakness and was nonverbal on 11/[address] showing no acute changes. MRI brain 12/01 also showing no acute findings. He remains on ASA and Eliquis. Other causes of AMS- UTI, Covid encephalopathy, uremia or Parkinsons.Neurology and Nephrology consulted. Pt having a 24 hour urine collection. (2) Generalized weakness: Code(s): R53.1 - Weakness Status: Acute Assessment and Plan: Ongoing weakness ? UTI, Covid encephalopathy, uremia or Parkinsons. From previous notes, CT brain again showing no acute process. MBS results noted and appropriate diet has been started. Brain MRI also showing no acute process. Echo EF 55-60% and diastolic dysfunction grade II. Continue PT/OT. (3) COVID-19: Code(s): U07.1 - COVID-19 Status: Acute Assessment and Plan: Patient became symptomatic around 11/19/20 and tested positive 11/24. Patient is vaccinated and he received a 3rd dose earlier in October. Patient is >2 weeks out from symptom onset of COVID. Lungs and sats remain good during this admission. (4) Acute UTI: Code(s): N39.0 - Urinary tract infection, site not specified Status: Acute Assessment and Plan: Same as previous notes - UA was suspicious for UTI. CT Abd/Pelvis diffuse mild bladder wall thickening with mild haziness to the surrounding fat which could be due to cystitis either acute or chronic or due to chronic outlet obstruction from the enlarged prostate. He also had a Davidson placed last admission but was not discharged with one. Davidson replaced this admission. UCx growing Klebsiella sensitive to Rocephin Day 6. Continue ceftriaxone. (5) Colitis: Code(s): K52.9 - Noninfective gastroenteritis and colitis, unspecified Status: Acute Assessment and Plan: Same as previous notes- CT Abd/Pelvis on admission showing distal sigmoid and rectum wall thickening consistent with a distal colitis. No diarrhea. Flagyl added to the Rocephin (6) HTN (hypertension): Qualifiers: Hypertension type: essential hypertension Qualified Code(s): I10 - Essential (primary) hypertension Code(s): I10 - Essential (primary) hypertension Status: Chronic Assessment and Plan: Patient's blood pressure was reviewed Blood pressure more elevated. Continue, Hydralazine Continue Coreg, Isordil and hydralazine. (7) Parkinson's disease: Code(s): G20 - Parkinson's disease Status: Chronic Assessment and Plan: Most likely this is contributing to his weakness. Continue Sinemet. Neuro consulted for PD (8) Chronic renal failure, stage 3 (moderate): Code(s): N18.30 - Chronic kidney disease, stage 3 unspecified Status: Acute Assessment and Plan: From previous notes, Creatinine earlier this year ranging from 3.1-3.7 (except 2.5 in June and 2.8 in September). Creatinine last admission was 3.0-3.1 but Cr 3.3 and BUN 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 I discussed with Nephrology pt will need 24 hour creat collection ? uremia. (9) Renal transplant recipient: Code(s): Z94.0 - Kidney transplant status Status: Acute Assessment and Plan: From previous notes- Patient has chronic kidney disease and history of renal transplant in 2007. Renal US reviw
[2020-12-04 16:43] LABS: Glucose Point of Care 336 mg/dl (65-105)
[2020-12-04] MEDS: LATANOPROST 0.005% OP SOLN 2.5 ML BTL 1 DROP EACH EYE (21:15)
[2020-12-04] MEDS: ATORVASTATIN 40 MG TABLET PO (21:15)
[2020-12-04] MEDS: VENLAFAXINE HCL XR 75 MG CAP.ER.24H PO (21:15)
[2020-12-04] MEDS: TAMSULOSIN HCL 0.4 MG CAPSULE PO (21:15)
[2020-12-04] MEDS: rOPINIRole HCL 0.125 MG TABLET PO (21:15)
[2020-12-04] MEDS: MELATONIN 5 MG TABLET PO (21:24)
[2020-12-04 22:16] LABS: Glucose Point of Care 347 mg/dl (65-105)
[2020-12-05] VITALS (7 sets, daily range): BP systolic 100–155; BP diastolic 72–80; PULSE 75–94; RESP 18–22; TEMP 35.8–36.4; O2SAT 91–94
[2020-12-05] MEDS: ALBUTEROL SULFATE (*SP) INHALER 2 PUFF INHALATION ×4 (02:50→20:51)
[2020-12-05] MEDS: metroNIDAZOLE 500 MG/ISO 100ML 500 MG/100 ML BAG 100 MG IVPB ×3 (05:49→21:39)
[2020-12-05 06:33] LABS: Hematocrit 38.4 % (42.0-52.0); Hemoglobin 13.3 g/dL (14.0-18.0); Mean Corpuscular HGB Conc 34.6 g/dl (32-36); Mean Corpuscular Hemoglobin 31.1 pg (26-34); Mean Corpuscular Volume 89.7 fl (80-100); Mean Platelet Volume 10.7 fl (7.4-10.4); Platelet Count Result 191 k/mm3 (150-375); Red Blood Count 4.28 M/mm3 (4.6-6.20); Red Cell Distribution Width 14.8 % (11.5-14.5); White Blood Count 8.9 K/mm3 (4.5-10.0)
[2020-12-05 07:15] LABS: Albumin Level 2.8 g/dL (3.5-5.1); Anion Gap 9 mmol/L (8-16); Blood Urea Nitrogen 92 mg/dL (9-20); Calcium 8.5 mg/dL (8.4-10.2); Carbon Dioxide 18 mmol/L (22-30); Chloride 105 mmol/L (98-107); Estimated CRCL calculation 17 ml/min; Estimated Glomerular Filt Rate 17; Glucose 357 mg/dL (65-110); Phosphorus 4.4 mg/dL (2.5-4.5); Potassium 4.7 mmol/L (3.4-5.0); Sodium 132 mmol/L (137-145)
[2020-12-05 08:10] LABS: Glucose Point of Care 343 mg/dl (65-105)
[2020-12-05] MEDS: INSULIN GLARGINE (*BKC) 100 UNITS/ML 15 UNITS SUB-Q ×2 (09:18→20:13)
[2020-12-05] MEDS: CARBIDOPA/LEVODOPA 25/250 MG TABLET 1 TABLET PO ×2 (09:20→18:06)
[2020-12-05] MEDS: hydrALAZINE HCL 50 MG TABLET 100 MG PO ×3 (09:20→18:08)
[2020-12-05] MEDS: ASPIRIN 81 MG ENTERIC TABLET PO (09:20)
[2020-12-05] MEDS: amLODIPine BESYLATE 2.5 MG TABLET PO (09:20)
[2020-12-05] MEDS: DEXAMETHASONE 2 MG TABLET 6 MG PO (09:20)
[2020-12-05] MEDS: PANTOPRAZOLE 40 MG TABLET PO ×2 (09:21→20:32)
[2020-12-05] MEDS: carvediloL 12.5 MG TABLET PO ×2 (09:21→18:07)
[2020-12-05] MEDS: APIXABAN 2.5 MG TABLET PO ×2 (09:21→18:06)
[2020-12-05] MEDS: SODIUM BICARBONATE TAB 650 MG TABLET 1300 MG PO ×2 (09:21→18:07)
[2020-12-05] MEDS: ISOSORBIDE DINITRATE 20 MG TABLET PO ×3 (09:21→18:08)
[2020-12-05] MEDS: BRIMONIDINE TARTRATE 0.2% OP SOLN 5 ML BTL 1 DROP EACH EYE ×3 (09:22→18:08)
[2020-12-05] MEDS: allopurinoL 300 MG TABLET PO (09:22)
[2020-12-05] MEDS: INSULIN ASPART (*BKC) 100 UNITS/ML SUB-Q ×3 (09:23→18:08)
--- NOTE | 2020-12-05 10:02 | PM.PNNEP ---
Progress Note: A&P Assessment and Plan (1) Renal transplant recipient: Code(s): Z94.0 - Kidney transplant status Status: Acute Assessment and Plan: Mr. Pollock has a kidney transplant. This has lasted for about 13 years. His renal function has gradually deteriorated over the years. In June and in September his creatinine has been between 3 and 3.6 at [facility]. He is on prednisone and tacrolimus. Mild SUDHIR ultrasound pending CPK is okay urine electrolytes are pre renal he has lots of protein in the urine 24hour urine is pending. If the GFR is around 10 then perhaps he would benefit from dialysis. (2) COVID-19: Code(s): U07.1 - COVID-19 Status: Acute Assessment and Plan: The patient has COVID-19. He has no hypoxia. He does have pulmonary infiltrates (3) Colitis: Code(s): K52.9 - Noninfective gastroenteritis and colitis, unspecified Status: Acute Assessment and Plan: The patient had colitis on CT. He is on antibiotics for this (4) Urinary tract infection: Qualifiers: Hematuria presence: without hematuria Urinary tract infection type: acute cystitis Qualified Code(s): N30.00 - Acute cystitis without hematuria Code(s): N39.0 - Urinary tract infection, site not specified Status: Acute Assessment and Plan: the patient had a positive urine culture. He is on ceftriaxone for this (5) HTN (hypertension): Qualifiers: Hypertension type: essential hypertension Qualified Code(s): I10 - Essential (primary) hypertension Code(s): I10 - Essential (primary) hypertension Status: Chronic Assessment and Plan: bp is better overall. No more drops in blood pressure in the last 48hours. (6) Altered mental status: Qualifiers: Altered mental status type: unspecified Qualified Code(s): R41.82 - Altered mental status, unspecified Code(s): R41.82 - Altered mental status, unspecified Status: Acute Assessment and Plan: Probably related to infection, whether COVID, colitis, or UTI. Consider uremia? 24hour urine is pending (7) Iron deficiency anemia, unspecified: Code(s): D50.9 - Iron deficiency anemia, unspecified Status: Acute Assessment and Plan: Hemoglobin is mildly low. Not low enough to require GE. (8) Diabetes: Qualifiers: Diabetes mellitus type: type 2 Diabetes mellitus skilled nursing insulin use: with skilled nursing use Diabetes mellitus complication status: with neurologic complications Diabetes mellitus complication detail: with autonomic neuropathy Qualified Code(s): E11.43 - Type 2 diabetes mellitus with diabetic autonomic (poly)neuropathy; Z79.4 - prison (current) use of insulin Code(s): E11.9 - Type 2 diabetes mellitus without complications Status: Acute Assessment and Plan: On Accu-Cheks and insulin Subjective Date/time seen: 12/05/20 10:02 Interval history: patient is about the same today. Still not eating. Mentation is still blunted from his usual. Exam Narrative: WDWN in NAD skin no rash or subcu nodules head ncat lungs clear to auscultation cor reg no rub or gallop abd BS+ nontender and soft ext no edema or cyanosis. Objective Data Vital Signs Vital Signs: Vital Signs - 24 hr 12/04/20 14:00 12/04/20 17:10 12/04/20 20:00 Temperature 36.4 C Pulse Rate 73 74 72 Respiratory Rate 20 18 Blood Pressure 149/75 H Pulse Oximetry 95 91 12/04/20 20:43 12/04/20 21:53 12/05/20 06:00 Temperature 36.4 C L 35.8 C L Pulse Rate 72 86 Respiratory Rate 18 18 Blood Pressure 143/83 H 155/80 H Pulse Oximetry 98 91 94 12/05/20 08:35 12/05/20 09:21 Temperature Pulse Rate 94 Respiratory Rate Blood Pressure Pulse Oximetry 91 Intake/Output Intake/Output: Intake & Output 12/02/20 12/03/20 12/04/20 12/05/20 23:59 23:59 23:59 23:59 Inta
--- NOTE | 2020-12-05 10:05 | PCPTNOTE ---
Attempted Physical Therapy treatment this am at 1000. Patient initially agreed to therapy, however, once patient was asked to begin exercise, patient shook his head no and closed his eyes. Will attempt again at a later time.
--- NOTE | 2020-12-05 10:32 | PM.IMPN ---
Progress Note: A&P Assessment and Plan (1) Altered mental status: Qualifiers: Altered mental status type: unspecified Qualified Code(s): R41.82 - Altered mental status, unspecified Code(s): R41.82 - Altered mental status, unspecified Status: Acute Assessment and Plan: From previous notes -Admitting provider's exam read as 'alert and Oriented x4 . CN 2-12 intact. No focal neurological deficits. Strength 5/5 upper and lower extremities'. TSH noted but FT4 normal. B12/folate normal. CT brain 11/28 showing no acute changes. Patient with diffuse weakness and was nonverbal on 11/[address] showing no acute changes. MRI brain 12/01 also showing no acute findings. He remains on ASA and Eliquis. Other causes of AMS- UTI, Covid encephalopathy, uremia or Parkinsons.Neurology and Nephrology consulted. Pt having a 24 hour urine collection. (2) Generalized weakness: Code(s): R53.1 - Weakness Status: Acute Assessment and Plan: Ongoing weakness ? UTI, Covid encephalopathy, uremia or Parkinsons. From previous notes, CT brain again showing no acute process. MBS results noted and appropriate diet has been started. Brain MRI also showing no acute process. Echo EF 55-60% and diastolic dysfunction grade II. Continue PT/OT. (3) COVID-19: Code(s): U07.1 - COVID-19 Status: Acute Assessment and Plan: Patient became symptomatic around 11/19/20 and tested positive 11/24. Patient is vaccinated and he received a 3rd dose earlier in October. Patient is >2 weeks out from symptom onset of COVID. Lungs and sats remain good during this admission. (4) Acute UTI: Code(s): N39.0 - Urinary tract infection, site not specified Status: Acute Assessment and Plan: Same as previous notes - UA was suspicious for UTI. CT Abd/Pelvis diffuse mild bladder wall thickening with mild haziness to the surrounding fat which could be due to cystitis either acute or chronic or due to chronic outlet obstruction from the enlarged prostate. He also had a Davidson placed last admission but was not discharged with one. Davidson replaced this admission. UCx growing Klebsiella sensitive to Rocephin Day 8. Continue ceftriaxone. Rpt UA today. Wcc is NL. (5) Colitis: Code(s): K52.9 - Noninfective gastroenteritis and colitis, unspecified Status: Acute Assessment and Plan: Same as previous notes- CT Abd/Pelvis on admission showing distal sigmoid and rectum wall thickening consistent with a distal colitis. No diarrhea reported. Flagyl added to the Rocephin (6) HTN (hypertension): Qualifiers: Hypertension type: essential hypertension Qualified Code(s): I10 - Essential (primary) hypertension Code(s): I10 - Essential (primary) hypertension Status: Chronic Assessment and Plan: Patient's blood pressure was reviewed Blood pressure more elevated. Continue, Hydralazine Continue Coreg, Isordil and hydralazine. (7) Parkinson's disease: Code(s): G20 - Parkinson's disease Status: Chronic Assessment and Plan: Most likely this is contributing to his weakness. Continue Sinemet. Neuro consulted for PD (8) Chronic renal failure, stage 3 (moderate): Code(s): N18.30 - Chronic kidney disease, stage 3 unspecified Status: Acute Assessment and Plan: From previous notes, Creatinine earlier this year ranging from 3.1-3.7 (except 2.5 in June and 2.8 in September). Creatinine last admission was 3.0-3.1 but Cr 3.3 and BUN 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 I discussed with Nephrology pt will need 24 hour creat collection ? uremia. (9) Renal transplant recipient: Code(s): Z94.0 - Kidney transplant status Status: Acute Assessment and Plan: From previous notes- Patient has chronic kidney disease and history of renal
[2020-12-05 11:50] LABS: Add Urine Microscopic? YES; Appearance Urine Clear (Clear); Bacteria Urine Trace /hpf; Bilirubin Urine Negative (Negative); Blood Urine 1+ (Negative); Color Urine Amber (Yellow); Glucose Urine UA 2+ mg/dL (Negative); Ketones Urine Trace mg/dL (Negative); Leukocyte Esterase Ur 1+ LEU/UL (Negative); Mucus Urine Rare /lpf; Nitrate Urine Negative (Negative); Protein Urine 3+ mg/dL (Negative); Specific Grav Ur 1.025 (1.001-1.035); Urobilinogen Urine Negative mg/dL (<2.0)
[2020-12-05 12:03] LABS: Glucose Point of Care 344 mg/dl (65-105)
[2020-12-05] MEDS: CARBIDOPA/LEVODOPA 25/100 MG CR TABLET 2 TABLET PO ×2 (12:14→22:01)
[2020-12-05 12:46] LABS: Tacrolimus Prograf 21.2 mcg/L
[2020-12-05 14:40] LABS: Collection Time Urine 24 HOURS; Total Volume 24 Hour Urine 600 ml
[2020-12-05 14:44] LABS: Patient Weight 200 Lbs
[2020-12-05 14:55] LABS: Creatinine 24 Hour Urine 0.6 gm/24 (1.0-2.0); Creatinine Urine 111.6 mg/dL
[2020-12-05 15:08] LABS: Creatinine Clearance Urine 11.1 ml/min (75-125); Creatinine Urine 110.8 mg/dL
[2020-12-05 17:13] LABS: Glucose Point of Care 333 mg/dl (65-105)
[2020-12-05] MEDS: LATANOPROST 0.005% OP SOLN 2.5 ML BTL 1 DROP EACH EYE (20:32)
[2020-12-05] MEDS: ATORVASTATIN 40 MG TABLET PO (20:32)
[2020-12-05] MEDS: rOPINIRole HCL 0.125 MG TABLET PO (20:32)
[2020-12-05] MEDS: VENLAFAXINE HCL XR 75 MG CAP.ER.24H PO (20:33)
[2020-12-05] MEDS: TAMSULOSIN HCL 0.4 MG CAPSULE PO (20:34)
[2020-12-05 21:28] LABS: Glucose Point of Care 350 mg/dl (65-105)
[2020-12-05] MEDS: MELATONIN 5 MG TABLET PO (23:37)
[2020-12-06] VITALS (9 sets, daily range): BP systolic 124–160; BP diastolic 67–86; PULSE 74–89; RESP 18–22; TEMP 36.4–36.9; O2SAT 93–100
[2020-12-06] MEDS: ALBUTEROL SULFATE (*SP) INHALER 2 PUFF INHALATION ×2 (03:31→08:42)
[2020-12-06] MEDS: metroNIDAZOLE 500 MG/ISO 100ML 500 MG/100 ML BAG 100 MG IVPB ×3 (06:09→21:34)
[2020-12-06 06:56] LABS: Hematocrit 36.9 % (42.0-52.0); Hemoglobin 12.8 g/dL (14.0-18.0); Mean Corpuscular HGB Conc 34.7 g/dl (32-36); Mean Corpuscular Hemoglobin 30.9 pg (26-34); Mean Corpuscular Volume 89.1 fl (80-100); Mean Platelet Volume 11.1 fl (7.4-10.4); Platelet Count Result 211 k/mm3 (150-375); Red Blood Count 4.14 M/mm3 (4.6-6.20); Red Cell Distribution Width 14.9 % (11.5-14.5); White Blood Count 10.6 K/mm3 (4.5-10.0)
[2020-12-06 07:01] LABS: Albumin Level 2.8 g/dL (3.5-5.1); Anion Gap 8 mmol/L (8-16); Blood Urea Nitrogen 95 mg/dL (9-20); Calcium 8.5 mg/dL (8.4-10.2); Carbon Dioxide 20 mmol/L (22-30); Chloride 103 mmol/L (98-107); Estimated CRCL calculation 18 ml/min; Estimated Glomerular Filt Rate 18; Glucose 329 mg/dL (65-110); Phosphorus 3.8 mg/dL (2.5-4.5); Potassium 4.5 mmol/L (3.4-5.0); Sodium 131 mmol/L (137-145)
[2020-12-06 08:06] LABS: Glucose Point of Care 324 mg/dl (65-105)
[2020-12-06] MEDS: hydrALAZINE HCL 50 MG TABLET 100 MG PO ×3 (09:11→17:26)
[2020-12-06] MEDS: amLODIPine BESYLATE 2.5 MG TABLET PO (09:11)
[2020-12-06] MEDS: allopurinoL 300 MG TABLET PO (09:12)
[2020-12-06] MEDS: CARBIDOPA/LEVODOPA 25/250 MG TABLET 1 TABLET PO ×2 (09:13→16:14)
[2020-12-06] MEDS: ASPIRIN 81 MG ENTERIC TABLET PO (09:13)
[2020-12-06] MEDS: SODIUM BICARBONATE TAB 650 MG TABLET 1300 MG PO ×2 (09:13→17:28)
[2020-12-06] MEDS: carvediloL 12.5 MG TABLET PO ×2 (09:14→17:27)
[2020-12-06] MEDS: PANTOPRAZOLE 40 MG TABLET PO ×2 (09:14→21:50)
[2020-12-06] MEDS: INSULIN GLARGINE (*BKC) 100 UNITS/ML 25 UNITS SUB-Q ×2 (09:16→22:01)
[2020-12-06] MEDS: ISOSORBIDE DINITRATE 20 MG TABLET PO ×3 (09:16→17:28)
[2020-12-06] MEDS: APIXABAN 2.5 MG TABLET PO ×2 (09:16→16:15)
[2020-12-06] MEDS: INSULIN ASPART (*BKC) 100 UNITS/ML SUB-Q ×4 (09:19→17:26)
[2020-12-06] MEDS: BRIMONIDINE TARTRATE 0.2% OP SOLN 5 ML BTL 1 DROP EACH EYE ×3 (09:52→16:15)
[2020-12-06] MEDS: calcitrioL 0.25 MCG CAPSULE 0.5 MCG PO (09:53)
[2020-12-06] MEDS: DEXAMETHASONE 2 MG TABLET 6 MG PO (09:53)
--- NOTE | 2020-12-06 10:14 | WPDNEUROPN ---
Progress Note: A&P Additional Plan treatment as such Review of Systems Review of Systems: All systems reviewed & are unremarkable except as noted in HPI and below Exam Const: General: cooperative, comfortable, no acute distress and anxious Nutritional Appearance: average body habitus Limitations: behavioral limitations and physical limitations HENMT: Head: normal to inspection Ears: hearing grossly normal bilaterally General nose exam: Normal external nose present Face and sinus: normal facial exam Mouth: Yes Normal oral and palatal mucosa present Eyes: General: appearance normal, both eyes and all related structures Neck: Neck: full ROM Resp: Effort & Inspection: normal respiratory effort Cardio: Rate: regular rate Heart sounds: Murmur heart sound present Neuro: General: oriented to person Cranial nerves: Yes CN's II-XII intact bilaterally Cognition (Neuro): abnormal cognition Speech: Abnormal speech present Gait exam (Neuro): Unable to assess gait Deep tendon reflexes (DTR's): Right triceps reflex intensity grade: 1+, Left triceps reflex intensity grade: 1+, Rt Biceps (C5, C6): 1+, Left biceps reflex intensity grade: 1+, Right brachioradialis reflex intensity grade: 1+, Left brachioradialis reflex intensity grade: 1+, Right patellar reflex intensity grade: 1+, Left patellar reflex intensity grade: 1+, Right ankle reflex intensity grade: 1+ and Left ankle reflex intensity grade: 1+ Plantar Reflex Responses: equivocal: bilateral Psych: Appearance: disheveled Mental Status: other Affect: Labile affect present Attitude: Guarded attititude/behavior present Insight: Other insight findings present (Psych) Judgement: Other judgement findings present (Psych) Objective Data Vital Signs Vital Signs: Vital Signs - 24 hr 12/05/20 14:00 12/05/20 18:07 12/05/20 22:00 Temperature 36.4 C 36.1 C L Pulse Rate 75 76 81 Respiratory Rate 22 H 20 Blood Pressure 144/74 H 100/72 Pulse Oximetry 94 94 12/06/20 06:00 12/06/20 09:14 Temperature 36.4 C Pulse Rate 84 83 Respiratory Rate 22 H Blood Pressure 160/86 H Pulse Oximetry 93 Intake/Output Intake/Output: Intake & Output 12/03/20 12/04/20 12/05/20 12/06/20 23:59 23:59 23:59 23:59 Intake Total 1520 1240 940 460 Output Total 625 650 700 300 Balance 895 590 240 160 Meds/Results Medications: Active Medications Generic Name Dose Route Start Last Admin Trade Name Freq PRN Reason Stop Dose Admin Acetaminophen 650 mg 12/01/20 12:01 12/03/20 11:15 Acetaminophen 325 Mg Tablet PO 650 mg Q6H PRN Administration Mild Pain (1-3) or Fever Albuterol 2 puff 12/01/20 21:10 12/06/20 08:42 Albuterol Sulfate (*Sp) Inhaler INHALATION 2 puff Q6HRT MARICHUY Administration Allopurinol 300 mg 11/28/20 09:00 12/06/20 09:12 Allopurinol 300 Mg Tablet PO 300 mg DAILY MARICHUY Administration Amlodipine Besylate 2.5 mg 12/04/20 09:00 12/06/20 09:11 Amlodipine Besylate 2.5 Mg Tablet PO 2.5 mg QAM MAR[place]UY Administration Apixaban 2.5 mg 11/28/20 09:00 12/06/20 09:16 Apixaban 2.5 Mg Tablet PO 2.5 mg BID MARICHUY Administration Artificial Tears 1 drop 11/28/20 09:13 Artificial Tears Ophth Soln 15 Ml Bottle EACH EYE TID PRN Dry Eyes Aspirin 81 mg 11/28/20 09:15 12/06/20 09:13 Aspirin 81 Mg Enteric Tablet PO 12/28/20 09:14 81 mg DAILY MARICHUY Administration Atorvastatin Calcium 40 mg 11/28/20 21:00 12/05/20 20:32 Atorvastatin 40 Mg Tablet PO 40 mg HS MARICHUY Administration Brimonidine Tartrate 1 drop 11/28/20 13:00 12/06/20 09:52 Brimonidine Tartrate 0.2% Op Soln 5 Ml Btl EACH EYE 1 drop TID MARICHUY Administration Bumetanide 1 mg 11/28/20 09:15 11/28/20 10:14 Bumetanide 1 Mg Tablet PO 1 mg DAILY MARICHUY Administration Bumetanide 1 mg 11/28/20 09:36 Bumetanide 1 Mg Tablet PO QPM PRN SWELLING/SOB Calcitriol 0.5 mcg 11/29/20 09:00 12/06/20 09:53 Calcitriol 0.25 Mcg Cap
--- NOTE | 2020-12-06 11:46 | PCNFU ---
Nutrition Follow-Up Complete: Inadequate oral intake related to COVID-19 , sepsis and UTI as evidenced by average meal intake of 21% and weight loss of 12 pounds since being admitted on 05/16/2020. Goal: Patient to meet estimated nutritional needs. Patient has limited progress towards goal. We will continue current goal. Pt current nutrition is DBCC/Minced,Moist Level 5. Last recorded weight is 91 kg, no new weight to report. Bowel Motility:+BM 12/03 Labs Reviewed:Glu 329,GFR 18,Cr 3.4,Hgb 12.8,Alb 2.8 Meds Noted:Flagyl, Flomax,Effexor, Prednisone. Additional Notes: Patient seen today for nutrition follow up. Patient not alert today, moaning. Oral Intake poor-10-50% of meals reported. Patient is receiving Nepro BID providing an additional 425 kcals and 19 gms protein. PO intake encouraged. Agree with diet orders. Monitor patient's labs, medications, weight, and oral intake every 3 days.
[2020-12-06 12:22] LABS: Glucose Point of Care 390 mg/dl (65-105)
[2020-12-06] MEDS: CARBIDOPA/LEVODOPA 25/100 MG CR TABLET 2 TABLET PO ×2 (12:51→22:07)
--- NOTE | 2020-12-06 13:21 | PM.IMPN ---
Progress Note: A&P Assessment and Plan (1) Altered mental status: Qualifiers: Altered mental status type: unspecified Qualified Code(s): R41.82 - Altered mental status, unspecified Code(s): R41.82 - Altered mental status, unspecified Status: Acute Assessment and Plan: Admitting provider's exam read as 'alert and Oriented x4 . CN 2-12 intact. No focal neurological deficits. Strength 5/5 upper and lower extremities'. TSH noted but FT4 normal. B12/folate normal. CT brain 11/28 showing no acute changes. Patient with diffuse weakness and was nonverbal on 11/[address] showing no acute changes. MRI brain 12/01 also showing no acute findings. He remains on ASA and Eliquis. Suspect mental status changes related to the UTI with slow recovery of mental status (as explained by ); consider also from COVID and/or uremia and/or Parkinson. Neurology consulted and did not recommend any changes. Continue to re-orient. (2) Generalized weakness: Code(s): R53.1 - Weakness Status: Acute Assessment and Plan: Patient with diffuse weakness at last admission. Normally walks with walker or cane at home and was recently in therapy; he does require gait belt at times for balance issues. Workup last admission showing carotid stenosis but CT brain negative for acute process. He worked with PT and OT and was minimum assistance x1 at discharge. Patient returned due to increasing weakness felt related to COVID and now UTI. Also has colitis which could be contributing. CT brain again showing no acute process. MBS results noted and appropriate diet has been started. Brain MRI also showing no acute process. Echo EF 55-60% and diastolic dysfunction grade II. Continue PT/OT. (3) COVID-19: Code(s): U07.1 - COVID-19 Status: Acute Assessment and Plan: Patient became symptomatic around 11/19/20 and tested positive 11/24. Patient is vaccinated and he received a 3rd dose earlier in October. Patient is >2 weeks out from symptom onset of COVID. He needed O2 briefly last admission but he was off O2 after an extra dose of Bumex IV given. On admission, CXR showing unchanged opacities in the lateral left lower lung zone and CT Abd showing airspace disease in the bilateral lower lobes which could represent pneumonia including COVID pneumonia. [place] pulmonary infarct unlikely. CRP better at 8.9 but LDH higher at 746. Steroid should be considered if SpO2 <= 94 and patient meets this criteria. Decided to proceed with Decadron (Day 5) for COVID 12/02. BUN worse today in part probably due to steroids. SpO2 at 91% on room air and CXR today reviewed and showing mildly progressive disease. Some of this could be atelectasis. Doubt he could work as IS or flutter valve. Proceed with CPT. Change to nebs. (4) Acute UTI: Code(s): N39.0 - Urinary tract infection, site not specified Status: Acute Assessment and Plan: UA was suspicious for UTI. CT Abd/Pelvis diffuse mild bladder wall thickening with mild haziness to the surrounding fat which could be due to cystitis either acute or chronic or due to chronic outlet obstruction from the enlarged prostate. He also had a Davidson placed last admission but was not discharged with one. Davidson replaced this admission. UCx growing Klebsiella sensitive to Rocephin Day 9. Will stop ceftriaxone after tomorrow. Voiding trial when he is up and around. (5) Colitis: Code(s): K52.9 - Noninfective gastroenteritis and colitis, unspecified Status: Acute Assessment and Plan: CT Abd/Pelvis on admission showing distal sigmoid and rectum wall thickening consistent with a distal colitis. No diarrhea. Flagyl added to the Rocephin Day 9. Monitor. Will stop abx after tomorrow. (6) HTN (hypertension): Qualifiers: Hypertension type: essential hypertension Qualified Code(s): I10 - Essential (primary) hypertension Code(s): I10 - Essential (primary) hypertensio
[2020-12-06] MEDS: ALBUTEROL SULFATE NEB 2.5 MG/0.5 ML INH INHALATION ×2 (14:33→20:36)
--- NOTE | 2020-12-06 15:46 | P.PNNP_ITS ---
Progress Note: A&P Assessment and Plan (1) Renal transplant recipient: Code(s): Z94.0 - Kidney transplant status Status: Acute Assessment and Plan: * s/p transplantation ~ 13 years ago * unfortunately, his renal function has been slowly deteriorating... * his creatinine has fluctuated to the extremes of 2.4 - 3.6mg/dl in the last 6 months per U Transplant * by last labs at [facility]: - creatinine 2.8mg/dl on 10/14/20 - creatinine 3.6mg/dl on 09/29/20 - creatinine 3.35mg/dl on 08/30/20 - creatinine 2.79mg/dl on 07/28/20 * remains on tacrolimus and prednisone * transplant renal ultrasound okay * nephrotic range proteinuria noted * urine electrolytes are prerenal * urine output is increasing... 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 Olivia) (3) COVID-19: Code(s): U07.1 - COVID-19 Status: Acute Assessment and Plan: * The patient has COVID-19 * no evidence of hypoxia at this time * however, present last week so given steroids (started on 12/02/20) - this is likely contributing to elevated BUN * continue supportive therapy (4) Altered mental status: Qualifiers: Altered mental status type: unspecified Qualified Code(s): R41.82 - Altered mental status, unspecified Code(s): R41.82 - Altered mental status, unspecified Status: Acute Assessment and Plan: * suspect multifactorial: - infection (colitis + UTI + COVID-19) - uremia(?) -- follow-up on 24hr urine results * Neurology following (5) Colitis: Code(s): K52.9 - Noninfective gastroenteritis and colitis, unspecified Status: Acute Assessment and Plan: * as noted by CT scan * completed course of antibiotics (ceftriaxone and flagyl) (6) Urinary tract infection: Qualifiers: Hematuria presence: without hematuria Urinary tract infection type: acute cystitis Qualified Code(s): N30.00 - Acute cystitis without hematuria Code(s): N39.0 - Urinary tract infection, site not specified Status: Acute Assessment and Plan: * urine culture with Klebsiella * completed course of antibiotics (7) HTN (hypertension): Qualifiers: Hypertension type: essential hypertension Qualified Code(s): I10 - Essential (primary) hypertension Code(s): I10 - Essential (primary) hypertension Status: Chronic Assessment and Plan: * appears stable * follow trend of hemodynamics (8) Diabetes: Qualifiers: Diabetes mellitus complication detail: with autonomic neuropathy Diabetes mellitus complication status: with neurologic complications Diabetes mellitus usp insulin use: with usp use Diabetes mellitus type: type 2 Qualified Code(s): E11.43 - Type 2 diabetes mellitus with diabetic autonomic (poly)neuropathy; Z79.4 - long-term (current) use of insulin Code(s): E11.9 - Type 2 diabetes mellitus without complications Status: Acute Assessment and Plan: * follow accuchecks * on Lantus and SSI Will continue to follow. Subjective Date/time seen: 12/06/20 15:46
--- NOTE | 2020-12-06 15:46 | PM.PNNEP ---
Progress Note: A&P Assessment and Plan (1) Renal transplant recipient: Code(s): Z94.0 - Kidney transplant status Status: Acute Assessment and Plan: s/p transplantation ~ 13 years ago unfortunately, his renal function has been slowly deteriorating... his creatinine has fluctuated to the extremes of 2.4 - 3.6mg/dl in the last 6 months per [facility] Transplant by last labs at [facility]: - creatinine 2.8mg/dl on 10/14/20 - creatinine 3.6mg/dl on 09/29/20 - creatinine 3.35mg/dl on 08/30/20 - creatinine 2.79mg/dl on 07/28/20 remains on tacrolimus and prednisone transplant renal ultrasound okay nephrotic range proteinuria noted urine electrolytes are prerenal urine output is increasing... 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 Olivia) (3) COVID-19: Code(s): U07.1 - COVID-19 Status: Acute Assessment and Plan: The patient has COVID-19 no evidence of hypoxia at this time however, present last week so given steroids (started on 12/02/20) - this is likely contributing to elevated BUN continue supportive therapy (4) Altered mental status: Qualifiers: Altered mental status type: unspecified Qualified Code(s): R41.82 - Altered mental status, unspecified Code(s): R41.82 - Altered mental status, unspecified Status: Acute Assessment and Plan: suspect multifactorial: - infection (colitis + UTI + COVID-19) - uremia(?) -- follow-up on 24hr urine results Neurology following (5) Colitis: Code(s): K52.9 - Noninfective gastroenteritis and colitis, unspecified Status: Acute Assessment and Plan: as noted by CT scan completed course of antibiotics (ceftriaxone and flagyl) (6) Urinary tract infection: Qualifiers: Hematuria presence: without hematuria Urinary tract infection type: acute cystitis Qualified Code(s): N30.00 - Acute cystitis without hematuria Code(s): N39.0 - Urinary tract infection, site not specified Status: Acute Assessment and Plan: urine culture with Klebsiella completed course of antibiotics (7) HTN (hypertension): Qualifiers: Hypertension type: essential hypertension Qualified Code(s): I10 - Essential (primary) hypertension Code(s): I10 - Essential (primary) hypertension Status: Chronic Assessment and Plan: appears stable follow trend of hemodynamics (8) Diabetes: Qualifiers: Diabetes mellitus complication detail: with autonomic neuropathy Diabetes mellitus complication status: with neurologic complications 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 Subjective Date/time seen: 12/06/20 15:46 Chart reviewed - assuming care from Dr. Mcelroy; he appears awake and alert and sometimes responds to questions (nodding head or says yeah ) but unclear if he is understanding what is being said; no apparent distress voiced at this time; no issues/events overnight or earlier this AM. Exam Narrative: General: WD/WN male in NAD Heart: normal S1 and S2; no rub Lungs: clear anteriorly, some crackles at bases Abdomen: soft, nontender, nondistended
[2020-12-06] MEDS: ACETAMINOPHEN 325 MG TABLET 650 MG PO (16:07)
[2020-12-06 17:17] LABS: Glucose Point of Care 379 mg/dl (65-105)
[2020-12-06] MEDS: SODIUM CHLORIDE 0.9% IV 1,000 ML 50 ML IV CONT (18:36)
--- NOTE | 2020-12-06 19:37 | PHAR ---
Addendum entered by Victor Manuel Ramirez 12/06/20 19:39: PHARMACY HAS IDENTIFIED THE FOLLOWING HOME MEDICATION. FILLED AT [facility] 12/01/20 [place], [place] Original Note: DRUG NAME: MOTEGRITY INGREDIENTS: PRUCALOPRIDE -- 2 MG RELATED DOCUMENTS: DRUGDEX EVALUATIONS - PRUCALOPRIDE COLOR: PINK SHAPE: LOWER [place] IMPRINT: PRU 2 FORM: ORAL TABLET
[2020-12-06] MEDS: rOPINIRole HCL 0.125 MG TABLET PO (21:50)
[2020-12-06] MEDS: VENLAFAXINE HCL XR 75 MG CAP.ER.24H PO (21:50)
[2020-12-06] MEDS: TAMSULOSIN HCL 0.4 MG CAPSULE PO (21:50)
[2020-12-06] MEDS: ATORVASTATIN 40 MG TABLET PO (21:50)
[2020-12-06] MEDS: LATANOPROST 0.005% OP SOLN 2.5 ML BTL 1 DROP EACH EYE (21:51)
[2020-12-06] MEDS: INSULIN ASPART (*BKC) 100 UNITS/ML 6 UNITS SUB-Q (22:06)
[2020-12-06] MEDS: MELATONIN 5 MG TABLET PO (22:40)
[2020-12-06 22:52] LABS: Glucose Point of Care 416 mg/dl (65-105)
[2020-12-06 22:52] LABS: Glucose Point of Care 426 mg/dl (65-105)
[2020-12-07] VITALS (13 sets, daily range): BP systolic 98–174; BP diastolic 54–91; PULSE 60–85; RESP 16–20; TEMP 36.1–36.6; O2SAT 92–96
[2020-12-07] MEDS: INSULIN ASPART (*BKC) 100 UNITS/ML 6 UNITS SUB-Q (00:09)
[2020-12-07] MEDS: LORazepam (*CRX) 0.5 MG TABLET PO (00:20)
[2020-12-07 00:27] LABS: Glucose Point of Care 400 mg/dl (65-105)
[2020-12-07] MEDS: ALBUTEROL SULFATE NEB 2.5 MG/0.5 ML INH INHALATION ×4 (02:04→21:45)
[2020-12-07 03:26] LABS: Glucose Point of Care 411 mg/dl (65-105)
[2020-12-07 06:25] LABS: Hematocrit 37.6 % (42.0-52.0); Hemoglobin 12.9 g/dL (14.0-18.0); Mean Corpuscular HGB Conc 34.3 g/dl (32-36); Mean Corpuscular Hemoglobin 30.8 pg (26-34); Mean Corpuscular Volume 89.7 fl (80-100); Mean Platelet Volume 11.3 fl (7.4-10.4); Platelet Count Result 195 k/mm3 (150-375); Red Blood Count 4.19 M/mm3 (4.6-6.20); Red Cell Distribution Width 14.9 % (11.5-14.5); White Blood Count 10.5 K/mm3 (4.5-10.0)
[2020-12-07] MEDS: metroNIDAZOLE 500 MG/ISO 100ML 500 MG/100 ML BAG 100 MG IVPB ×2 (06:43→15:36)
[2020-12-07 06:52] LABS: Alanine Aminotransferase 8 U/L (4-50); Albumin Level 2.7 g/dL (3.5-5.1); Alkaline Phosphatase 78 U/L (38-126); Anion Gap 8 mmol/L (8-16); Aspartate Amino Transferase 35 U/L (17-59); Bilirubin,Total 0.8 mg/dL (0.2-1.3); Blood Urea Nitrogen 101 mg/dL (9-20); CRP 3.2 mg/dL (<1.0); Calcium 8.6 mg/dL (8.4-10.2); Carbon Dioxide 18 mmol/L (22-30); Chloride 105 mmol/L (98-107); Estimated CRCL calculation 18 ml/min; Estimated Glomerular Filt Rate 18; Glucose 376 mg/dL (65-110); Lactate Dehydrogenase 799 U/L (313-618); Phosphorus 3.8 mg/dL (2.5-4.5); Potassium 4.7 mmol/L (3.4-5.0); Sodium 131 mmol/L (137-145)
[2020-12-07 08:09] LABS: Glucose Point of Care 351 mg/dl (65-105)
[2020-12-07 08:54] LABS: Glucose Point of Care 377 mg/dl (65-105)
--- NOTE | 2020-12-07 09:58 | PM.PNNEP ---
Progress Note: A&P Assessment and Plan (1) Renal transplant recipient: Code(s): Z94.0 - Kidney transplant status Status: Acute Assessment and Plan: s/p transplantation ~ 13 years ago unfortunately, his renal function has been slowly deteriorating... his creatinine has fluctuated to the extremes of 2.4 - 3.6mg/dl in the last 6 months per [facility] Transplant by last labs at [facility]: - creatinine 2.8mg/dl on 10/14/20 - creatinine 3.6mg/dl on 09/29/20 - creatinine 3.35mg/dl on 08/30/20 - creatinine 2.79mg/dl on 07/28/20 remains on tacrolimus and prednisone transplant renal ultrasound okay nephrotic range proteinuria noted urine electrolytes are prerenal urine output is increasing... 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 Olivia) (3) COVID-19: Code(s): U07.1 - COVID-19 Status: Acute Assessment and Plan: The patient has COVID-19 no evidence of hypoxia at this time however, present last week so given steroids (started on 12/02/20) - this is likely contributing to elevated BUN continue supportive therapy (4) Altered mental status: Qualifiers: Altered mental status type: unspecified Qualified Code(s): R41.82 - Altered mental status, unspecified Code(s): R41.82 - Altered mental status, unspecified Status: Acute Assessment and Plan: suspect multifactorial: - infection (colitis + UTI + COVID-19) - uremia(?) -- follow-up on 24hr urine results Neurology following (5) Colitis: Code(s): K52.9 - Noninfective gastroenteritis and colitis, unspecified Status: Acute Assessment and Plan: as noted by CT scan completed course of antibiotics (ceftriaxone and flagyl) (6) Urinary tract infection: Qualifiers: Hematuria presence: without hematuria Urinary tract infection type: acute cystitis Qualified Code(s): N30.00 - Acute cystitis without hematuria Code(s): N39.0 - Urinary tract infection, site not specified Status: Acute Assessment and Plan: urine culture with Klebsiella completed course of antibiotics (7) HTN (hypertension): Qualifiers: Hypertension type: essential hypertension Qualified Code(s): I10 - Essential (primary) hypertension Code(s): I10 - Essential (primary) hypertension Status: Chronic Assessment and Plan: appears stable follow trend of hemodynamics (8) Diabetes: Qualifiers: Diabetes mellitus type: type 2 Diabetes mellitus fdc insulin use: with superintendent container terminal 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 Subjective Date/time seen: 12/07/20 09:58 The patient seems alert but does not really communicate much -- will usually nod his head to questions or just say okay. -- no apparent distress noted; apparently eating a bit better per nursing; no issues/events overngiht or earlier this AM. Exam Narrative: General: WD/WN male in NAD; nonverbal Heart: normal S1 and S2; no rub Lungs: clear to auscultation Abdomen: soft, nontender, nondistended, positive bowel sounds Extremities: no cyanosis
--- NOTE | 2020-12-07 09:58 | P.PNNP_ITS ---
Progress Note: A&P Assessment and Plan (1) Renal transplant recipient: Code(s): Z94.0 - Kidney transplant status Status: Acute Assessment and Plan: * s/p transplantation ~ 13 years ago * unfortunately, his renal function has been slowly deteriorating... * his creatinine has fluctuated to the extremes of 2.4 - 3.6mg/dl in the last 6 months per [facility] Transplant * by last labs at [facility]: - creatinine 2.8mg/dl on 10/14/20 - creatinine 3.6mg/dl on 09/29/20 - creatinine 3.35mg/dl on 08/30/20 - creatinine 2.79mg/dl on 07/28/20 * remains on tacrolimus and prednisone * transplant renal ultrasound okay * nephrotic range proteinuria noted * urine electrolytes are prerenal * urine output is increasing... 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 Olivia) (3) COVID-19: Code(s): U07.1 - COVID-19 Status: Acute Assessment and Plan: * The patient has COVID-19 * no evidence of hypoxia at this time * however, present last week so given steroids (started on 12/02/20) - this is likely contributing to elevated BUN * continue supportive therapy (4) Altered mental status: Qualifiers: Altered mental status type: unspecified Qualified Code(s): R41.82 - Altered mental status, unspecified Code(s): R41.82 - Altered mental status, unspecified Status: Acute Assessment and Plan: * suspect multifactorial: - infection (colitis + UTI + COVID-19) - uremia(?) -- follow-up on 24hr urine results * Neurology following (5) Colitis: Code(s): K52.9 - Noninfective gastroenteritis and colitis, unspecified Status: Acute Assessment and Plan: * as noted by CT scan * completed course of antibiotics (ceftriaxone and flagyl) (6) Urinary tract infection: Qualifiers: Hematuria presence: without hematuria Urinary tract infection type: acute cystitis Qualified Code(s): N30.00 - Acute cystitis without hematuria Code(s): N39.0 - Urinary tract infection, site not specified Status: Acute Assessment and Plan: * urine culture with Klebsiella * completed course of antibiotics (7) HTN (hypertension): Qualifiers: Hypertension type: essential hypertension Qualified Code(s): I10 - Essential (primary) hypertension Code(s): I10 - Essential (primary) hypertension Status: Chronic Assessment and Plan: * appears stable * follow trend of hemodynamics (8) Diabetes: Qualifiers: Diabetes mellitus type: type 2 Diabetes mellitus custodial insulin use: with rodent exterminator use Diabetes mellitus complication status: with neurologic complications Diabetes mellitus complication detail: with autonomic neuropathy Qualified Code(s): E11.43 - Type 2 diabetes mellitus with diabetic autonomic (poly)neuropathy; Z79.4 - intermediate (current) use of insulin Code(s): E11.9 - Type 2 diabetes mellitus without complications Status: Acute Assessment and Plan: * follow accuchecks * on Lantus and SSI Will continue to follow. Subjective Date/time seen: 12/07/20 09:58
[2020-12-07] MEDS: carvediloL 12.5 MG TABLET PO ×2 (10:07→18:19)
[2020-12-07] MEDS: allopurinoL 300 MG TABLET PO (10:09)
[2020-12-07] MEDS: amLODIPine BESYLATE 2.5 MG TABLET PO (10:10)
[2020-12-07] MEDS: ASPIRIN 81 MG ENTERIC TABLET PO (10:10)
[2020-12-07] MEDS: APIXABAN 2.5 MG TABLET PO ×2 (10:10→18:10)
[2020-12-07] MEDS: hydrALAZINE HCL 50 MG TABLET 100 MG PO ×3 (10:12→18:10)
[2020-12-07] MEDS: CARBIDOPA/LEVODOPA 25/250 MG TABLET 1 TABLET PO ×2 (10:12→18:19)
[2020-12-07] MEDS: ISOSORBIDE DINITRATE 20 MG TABLET PO ×3 (10:12→18:10)
[2020-12-07] MEDS: PANTOPRAZOLE 40 MG TABLET PO ×2 (10:12→21:05)
[2020-12-07] MEDS: SODIUM BICARBONATE TAB 650 MG TABLET 1300 MG PO ×2 (10:13→18:10)
[2020-12-07] MEDS: BRIMONIDINE TARTRATE 0.2% OP SOLN 5 ML BTL 1 DROP EACH EYE ×3 (10:18→18:09)
[2020-12-07] MEDS: INSULIN GLARGINE (*BKC) 100 UNITS/ML 15 UNITS SUB-Q ×2 (10:24→21:06)
[2020-12-07] MEDS: INSULIN ASPART (*BKC) 100 UNITS/ML SUB-Q ×3 (10:28→18:10)
[2020-12-07] MEDS: CARBIDOPA/LEVODOPA 25/100 MG CR TABLET 2 TABLET PO ×2 (12:19→22:19)
[2020-12-07 13:09] LABS: Glucose Point of Care 359 mg/dl (65-105)
--- NOTE | 2020-12-07 14:02 | PM.IMPN ---
Progress Note: A&P Assessment and Plan (1) Altered mental status: Qualifiers: Altered mental status type: unspecified Qualified Code(s): R41.82 - Altered mental status, unspecified Code(s): R41.82 - Altered mental status, unspecified Status: Acute Assessment and Plan: Admitting provider's exam read as 'alert and Oriented x4 . CN 2-12 intact. No focal neurological deficits. Strength 5/5 upper and lower extremities'. TSH noted but FT4 normal. B12/folate normal. CT brain 11/28 showing no acute changes. Patient with diffuse weakness and was nonverbal on 11/[address] showing no acute changes. MRI brain 12/01 also showing no acute findings. He remains on ASA and Eliquis. Suspect mental status changes related to the UTI with slow recovery of mental status (as explained by ); consider also from COVID and/or uremia and/or Parkinson. Neurology consulted and did not recommend any changes. Continue to re-orient. (2) Generalized weakness: Code(s): R53.1 - Weakness Status: Acute Assessment and Plan: Patient with diffuse weakness at last admission. Normally walks with walker or cane at home and was recently in therapy; he does require gait belt at times for balance issues. Workup last admission showing carotid stenosis but CT brain negative for acute process. He worked with PT and OT and was minimum assistance x1 at discharge. Patient returned due to increasing weakness felt related to COVID and now UTI. Also has colitis which could be contributing. CT brain again showing no acute process. MBS results noted and appropriate diet has been started. Brain MRI also showing no acute process. Echo EF 55-60% and diastolic dysfunction grade II. Continue PT/OT. (3) COVID-19: Code(s): U07.1 - COVID-19 Status: Acute Assessment and Plan: Patient became symptomatic around 11/19/20 and tested positive 11/24. Patient is vaccinated and he received a 3rd dose earlier in October. Patient is >2 weeks out from symptom onset of COVID. He needed O2 briefly last admission but he was off O2 after an extra dose of Bumex IV given. On admission, CXR showing unchanged opacities in the lateral left lower lung zone and CT Abd showing airspace disease in the bilateral lower lobes which could represent pneumonia including COVID pneumonia. [place] pulmonary infarct unlikely. CRP better at 8.9 but LDH higher at 746. Steroid should be considered if SpO2 <= 94 and patient meets this criteria. Decided to proceed with Decadron (Day 6) for COVID 12/02. BUN worse today in part probably due to steroids. SpO2 better today. Continue nebs. Will stop Decadron since elevated BUN could be affecting his mental status. (4) Acute UTI: Code(s): N39.0 - Urinary tract infection, site not specified Status: Acute Assessment and Plan: UA was suspicious for UTI. CT Abd/Pelvis diffuse mild bladder wall thickening with mild haziness to the surrounding fat which could be due to cystitis either acute or chronic or due to chronic outlet obstruction from the enlarged prostate. He also had a Davidson placed last admission but was not discharged with one. Davidson replaced this admission. UCx growing Klebsiella sensitive to Rocephin Day 10. Will stop ceftriaxone today. Voiding trial when he is up and around. (5) Colitis: Code(s): K52.9 - Noninfective gastroenteritis and colitis, unspecified Status: Acute Assessment and Plan: CT Abd/Pelvis on admission showing distal sigmoid and rectum wall thickening consistent with a distal colitis. No diarrhea. Flagyl added to the Rocephin Day 10. Monitor. Will stop abx today. (6) HTN (hypertension): Qualifiers: Hypertension type: essential hypertension Qualified Code(s): I10 - Essential (primary) hypertension Code(s): I10 - Essential (primary) hypertension Status: Chronic Assessment and Plan: Patient's blood pressure was reviewed on 12/07 Blood
--- NOTE | 2020-12-07 15:12 | PCOTNOTE ---
Attempted OT treatment, per RN patient cannot be seen at this time due to getting a new IV started. Will follow.
[2020-12-07] MEDS: SODIUM CHLORIDE 0.9% IV 1,000 ML 50 ML IV CONT (15:30)
[2020-12-07 17:24] LABS: Glucose Point of Care 363 mg/dl (65-105)
[2020-12-07] MEDS: VENLAFAXINE HCL XR 75 MG CAP.ER.24H PO (21:05)
[2020-12-07] MEDS: rOPINIRole HCL 0.125 MG TABLET PO (21:05)
[2020-12-07] MEDS: ATORVASTATIN 40 MG TABLET PO (21:05)
[2020-12-07] MEDS: TAMSULOSIN HCL 0.4 MG CAPSULE PO (21:05)
[2020-12-07] MEDS: LATANOPROST 0.005% OP SOLN 2.5 ML BTL 1 DROP EACH EYE (21:05)
[2020-12-07 21:12] LABS: Glucose Point of Care 366 mg/dl (65-105)
[2020-12-08] VITALS (12 sets, daily range): BP systolic 136–153; BP diastolic 66–92; PULSE 60–93; RESP 16–22; TEMP 35.9–36.4; O2SAT 93–94
[2020-12-08] MEDS: ALBUTEROL SULFATE NEB 2.5 MG/0.5 ML INH INHALATION ×4 (02:52→20:43)
[2020-12-08 07:08] LABS: Albumin Level 2.6 g/dL (3.5-5.1); Anion Gap 9 mmol/L (8-16); Blood Urea Nitrogen 109 mg/dL (9-20); Calcium 8.7 mg/dL (8.4-10.2); Carbon Dioxide 18 mmol/L (22-30); Chloride 106 mmol/L (98-107); Estimated CRCL calculation 18 ml/min; Estimated Glomerular Filt Rate 18; Glucose 387 mg/dL (65-110); Phosphorus 3.6 mg/dL (2.5-4.5); Potassium 4.4 mmol/L (3.4-5.0); Sodium 133 mmol/L (137-145)
--- NOTE | 2020-12-08 08:45 | PCPTNOTE ---
Attempted to see patient for PT at this time, however patient refused to participate in therapy.
[2020-12-08 08:53] LABS: Glucose Point of Care 356 mg/dl (65-105)
[2020-12-08] MEDS: BRIMONIDINE TARTRATE 0.2% OP SOLN 5 ML BTL 1 DROP EACH EYE ×3 (09:11→16:34)
[2020-12-08] MEDS: ASPIRIN 81 MG ENTERIC TABLET PO (09:12)
[2020-12-08] MEDS: SODIUM BICARBONATE TAB 650 MG TABLET 1300 MG PO ×2 (09:12→16:33)
[2020-12-08] MEDS: amLODIPine BESYLATE 2.5 MG TABLET PO (09:12)
[2020-12-08] MEDS: carvediloL 12.5 MG TABLET PO ×2 (09:12→16:39)
[2020-12-08] MEDS: PANTOPRAZOLE 40 MG TABLET PO ×2 (09:12→20:37)
[2020-12-08] MEDS: APIXABAN 2.5 MG TABLET PO ×2 (09:13→16:37)
[2020-12-08] MEDS: calcitrioL 0.25 MCG CAPSULE 0.5 MCG PO (09:13)
[2020-12-08] MEDS: allopurinoL 300 MG TABLET PO (09:14)
[2020-12-08] MEDS: CARBIDOPA/LEVODOPA 25/250 MG TABLET 1 TABLET PO ×2 (09:14→16:36)
[2020-12-08] MEDS: hydrALAZINE HCL 50 MG TABLET 100 MG PO ×3 (09:14→16:40)
[2020-12-08] MEDS: ISOSORBIDE DINITRATE 20 MG TABLET PO ×3 (09:15→16:33)
[2020-12-08] MEDS: predniSONE 5 MG TABLET PO (09:15)
[2020-12-08] MEDS: INSULIN GLARGINE (*BKC) 100 UNITS/ML 25 UNITS SUB-Q ×2 (09:22→22:52)
[2020-12-08] MEDS: INSULIN ASPART (*BKC) 100 UNITS/ML SUB-Q ×5 (09:24→16:44)
[2020-12-08] MEDS: SODIUM CHLORIDE 0.9% IV 1,000 ML 50 ML IV CONT (12:12)
[2020-12-08] MEDS: CARBIDOPA/LEVODOPA 25/100 MG CR TABLET 2 TABLET PO ×2 (12:12→22:52)
[2020-12-08 12:28] LABS: Glucose Point of Care 336 mg/dl (65-105)
--- NOTE | 2020-12-08 15:14 | PCOTNOTE ---
Attempted to see patient this pm, however patient refused. Pt kept eyes closed and shook head side to side.
--- NOTE | 2020-12-08 16:40 | PM.IMPN ---
Progress Note: A&P Assessment and Plan (1) Altered mental status: Qualifiers: Altered mental status type: unspecified Qualified Code(s): R41.82 - Altered mental status, unspecified Code(s): R41.82 - Altered mental status, unspecified Status: Acute Assessment and Plan: Patient was AOx4 by admitting provider. TSH noted but FT4 normal. B12/folate normal. CT brain 11/28 showing no acute changes. Patient with diffuse weakness and was nonverbal on 11/[address] showing no acute changes. MRI brain 12/01 also showing no acute findings. He remains on ASA and Eliquis. Suspect mental status changes related to the UTI and/or colitis with slow recovery of mental status (as explained by ); consider also from COVID and/or uremia and/or Parkinson. Neurology consulted and did not recommend any changes. Continue to re-orient. Eating better so will stop IV fluids. (2) Generalized weakness: Code(s): R53.1 - Weakness Status: Acute Assessment and Plan: Patient with diffuse weakness at last admission. Normally walks with walker or cane at home and was recently in therapy; he does require gait belt at times for balance issues. Workup last admission showing carotid stenosis but CT brain negative for acute process. He worked with PT and OT and was minimum assistance x1 at discharge. Patient returned due to increasing weakness felt related to COVID and now UTI. Also has colitis which could be contributing. CT brain again showing no acute process. MBS results noted and appropriate diet has been started. Brain MRI also showing no acute process. Echo EF 55-60% and diastolic dysfunction grade II. Continue PT/OT. (3) COVID-19: Code(s): U07.1 - COVID-19 Status: Acute Assessment and Plan: Patient became symptomatic around 11/19/20 and tested positive 11/24. Patient is vaccinated and he received a 3rd dose earlier in October. Patient is >2 weeks out from symptom onset of COVID. He needed O2 briefly last admission but he was off O2 after an extra dose of Bumex IV given. On admission, CXR showing unchanged opacities in the lateral left lower lung zone and CT Abd showing airspace disease in the bilateral lower lobes which could represent pneumonia including COVID pneumonia. [place] pulmonary infarct unlikely. Steroid should be considered if SpO2 <= 94 and patient met this criteria so it was decided to proceed with Decadron. BUN worsening and SpO2 improved so decided to stop Decadron. Monitor. (4) Acute UTI: Code(s): N39.0 - Urinary tract infection, site not specified Status: Acute Assessment and Plan: UA was suspicious for UTI. CT Abd/Pelvis diffuse mild bladder wall thickening with mild haziness to the surrounding fat which could be due to cystitis either acute or chronic or due to chronic outlet obstruction from the enlarged prostate. He also had a Davidson placed last admission but was not discharged with one. Davidson replaced this admission. UCx growing Klebsiella sensitive to Rocephin and he completed a course of abx. Voiding trial when he is up and around. (5) Colitis: Code(s): K52.9 - Noninfective gastroenteritis and colitis, unspecified Status: Acute Assessment and Plan: CT Abd/Pelvis on admission showing distal sigmoid and rectum wall thickening consistent with a distal colitis. No diarrhea. Flagyl added to the Rocephin and he completed a course. Monitor. (6) HTN (hypertension): Qualifiers: Hypertension type: essential hypertension Qualified Code(s): I10 - Essential (primary) hypertension Code(s): I10 - Essential (primary) hypertension Status: Chronic Assessment and Plan: Patient's blood pressure was reviewed on 12/08 Blood pressure better overall but BP still drops to 98/54. Continue Coreg, Isordil, Hydralazine and Norvasc. Follow. (7) Parkinson's disease: Code(s): G20 - Parkinson's disease Status: Chronic
--- NOTE | 2020-12-08 16:51 | PM.PNNEP ---
Progress Note: A&P Assessment and Plan (1) Renal transplant recipient: Code(s): Z94.0 - Kidney transplant status Status: Chronic Assessment and Plan: s/p transplantation ~ 13 years ago unfortunately, his renal function has been slowly deteriorating...worsened by COVID -19??? his creatinine has fluctuated to the extremes of 2.4 - 3.6mg/dl in the last 6 months per [facility] Transplant by last labs at [facility]: - creatinine 2.8mg/dl on 10/14/20 - creatinine 3.6mg/dl on 09/29/20 - creatinine 3.35mg/dl on 08/30/20 - creatinine 2.79mg/dl on 07/28/20 remains on tacrolimus and prednisone transplant renal ultrasound okay nephrotic range proteinuria noted urine electrolytes are prerenal urine output is increasing... 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 Olivia) (3) COVID-19: Code(s): U07.1 - COVID-19 Status: Acute Assessment and Plan: The patient has COVID-19 no evidence of hypoxia at this time however, present last week so given steroids (started on 12/02/20) - this is likely contributing to elevated BUN continue supportive therapy (4) Altered mental status: Qualifiers: Altered mental status type: unspecified Qualified Code(s): R41.82 - Altered mental status, unspecified Code(s): R41.82 - Altered mental status, unspecified Status: Acute Assessment and Plan: suspect multifactorial: - infection (colitis + UTI + COVID-19) - uremia(?) -- follow-up on 24hr urine results Neurology following (5) Colitis: Code(s): K52.9 - Noninfective gastroenteritis and colitis, unspecified Status: Acute Assessment and Plan: as noted by CT scan completed course of antibiotics (ceftriaxone and flagyl) (6) Urinary tract infection: Qualifiers: Hematuria presence: without hematuria Urinary tract infection type: acute cystitis Qualified Code(s): N30.00 - Acute cystitis without hematuria Code(s): N39.0 - Urinary tract infection, site not specified Status: Acute Assessment and Plan: urine culture with Klebsiella completed course of antibiotics (7) HTN (hypertension): Qualifiers: Hypertension type: essential hypertension Qualified Code(s): I10 - Essential (primary) hypertension Code(s): I10 - Essential (primary) hypertension Status: Chronic Assessment and Plan: appears stable follow trend of hemodynamics (8) Diabetes: Qualifiers: Diabetes mellitus type: type 2 Diabetes mellitus jail insulin use: with intermediate card tender use Diabetes mellitus complication status: with neurologic complications Diabetes mellitus complication detail: with autonomic neuropathy Qualified Code(s): E11.43 - Type 2 diabetes mellitus with diabetic autonomic (poly)neuropathy; Z79.4 - roasterman (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 Subjective Date/time seen: 12/08/20 16:51 The patient seems a bit more awake/alert and did say a couple of words but then goes back to sleep; no apparent distress noted; no issues/events overnight or earlier this AM. Exam Narrative: General: WD/WN male in NAD Heart: normal S1 and S2; no rub Lungs: clear but decreased at bases Abdomen: soft, nontender, nondistended, positive bowel sounds Extremities: no cyanosis or clubbing; no edema Skin: warm and dry; improv
--- NOTE | 2020-12-08 16:51 | P.PNNP_ITS ---
Progress Note: A&P Assessment and Plan (1) Renal transplant recipient: Code(s): Z94.0 - Kidney transplant status Status: Chronic Assessment and Plan: * s/p transplantation ~ 13 years ago * unfortunately, his renal function has been slowly deteriorating...worsened by COVID -19??? * his creatinine has fluctuated to the extremes of 2.4 - 3.6mg/dl in the last 6 months [address] [facility] Transplant * by last labs at [facility]: - creatinine 2.8mg/dl on 10/14/20 - creatinine 3.6mg/dl on 09/29/20 - creatinine 3.35mg/dl on 08/30/20 - creatinine 2.79mg/dl on 07/28/20 * remains on tacrolimus and prednisone * transplant renal ultrasound okay * nephrotic range proteinuria noted * urine electrolytes are prerenal * urine output is increasing... 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 Transplant (Dr. Olivia) (3) COVID-19: Code(s): U07.1 - COVID-19 Status: Acute Assessment and Plan: * The patient has COVID-19 * no evidence of hypoxia at this time * however, present last week so given steroids (started on 12/02/20) - this is likely contributing to elevated BUN * continue supportive therapy (4) Altered mental status: Qualifiers: Altered mental status type: unspecified Qualified Code(s): R41.82 - Altered mental status, unspecified Code(s): R41.82 - Altered mental status, unspecified Status: Acute Assessment and Plan: * suspect multifactorial: - infection (colitis + UTI + COVID-19) - uremia(?) -- follow-up on 24hr urine results * Neurology following (5) Colitis: Code(s): K52.9 - Noninfective gastroenteritis and colitis, unspecified Status: Acute Assessment and Plan: * as noted by CT scan * completed course of antibiotics (ceftriaxone and flagyl) (6) Urinary tract infection: Qualifiers: Hematuria presence: without hematuria Urinary tract infection type: acute cystitis Qualified Code(s): N30.00 - Acute cystitis without hematuria Code(s): N39.0 - Urinary tract infection, site not specified Status: Acute Assessment and Plan: * urine culture with Klebsiella * completed course of antibiotics (7) HTN (hypertension): Qualifiers: Hypertension type: essential hypertension Qualified Code(s): I10 - Essential (primary) hypertension Code(s): I10 - Essential (primary) hypertension Status: Chronic Assessment and Plan: * appears stable * follow trend of hemodynamics (8) Diabetes: Qualifiers: Diabetes mellitus type: type 2 Diabetes mellitus intermediate insulin use: with intermediate use Diabetes mellitus complication status: with neurologic complications Diabetes mellitus complication detail: with autonomic neuropathy Qualified Code(s): E11.43 - Type 2 diabetes mellitus with diabetic autonomic (poly)neuropathy; Z79.4 - retirement (current) use of insulin Code(s): E11.9 - Type 2 diabetes mellitus without complications Status: Acute Assessment and Plan: * follow accuchecks * on Lantus and SSI Will continue to follow. Subjective Date/time s
--- NOTE | 2020-12-08 17:13 | PCRCNOTE ---
Window of time for administration has passed. See next scheduled administration.
[2020-12-08 17:34] LABS: Glucose Point of Care 342 mg/dl (65-105)
[2020-12-08] MEDS: rOPINIRole HCL 0.125 MG TABLET PO (20:37)
[2020-12-08] MEDS: TAMSULOSIN HCL 0.4 MG CAPSULE PO (20:37)
[2020-12-08] MEDS: VENLAFAXINE HCL XR 75 MG CAP.ER.24H PO (20:37)
[2020-12-08] MEDS: LATANOPROST 0.005% OP SOLN 2.5 ML BTL 1 DROP EACH EYE (20:37)
[2020-12-08] MEDS: ATORVASTATIN 40 MG TABLET PO (20:38)
[2020-12-08 22:56] LABS: Glucose Point of Care 340 mg/dl (65-105)
[2020-12-09] VITALS (10 sets, daily range): BP systolic 130–156; BP diastolic 64–88; PULSE 78–93; RESP 18–20; TEMP 36.2–36.4; O2SAT 93–96
[2020-12-09] MEDS: ALBUTEROL SULFATE NEB 2.5 MG/0.5 ML INH INHALATION ×4 (02:19→20:51)
[2020-12-09 06:56] LABS: Hematocrit 38.2 % (42.0-52.0); Hemoglobin 13.3 g/dL (14.0-18.0); Mean Corpuscular HGB Conc 34.8 g/dl (32-36); Mean Corpuscular Hemoglobin 31.7 pg (26-34); Mean Platelet Volume 11.2 fl (7.4-10.4); Platelet Count Result 170 k/mm3 (150-375); Red Cell Distribution Width 14.9 % (11.5-14.5); White Blood Count 13.4 K/mm3 (4.5-10.0)
[2020-12-09 07:26] LABS: Alanine Aminotransferase 7 U/L (4-50); Albumin Level 2.7 g/dL (3.5-5.1); Alkaline Phosphatase 70 U/L (38-126); Anion Gap 8 mmol/L (8-16); Aspartate Amino Transferase 30 U/L (17-59); Bilirubin,Total 0.8 mg/dL (0.2-1.3); Blood Urea Nitrogen 113 mg/dL (9-20); Calcium 8.7 mg/dL (8.4-10.2); Carbon Dioxide 18 mmol/L (22-30); Chloride 106 mmol/L (98-107); Estimated CRCL calculation 19 ml/min; Estimated Glomerular Filt Rate 19; Glucose 359 mg/dL (65-110); Magnesium 2.2 mg/dL (1.6-2.3); Phosphorus 3.2 mg/dL (2.5-4.5); Potassium 4.9 mmol/L (3.4-5.0); Sodium 132 mmol/L (137-145)
[2020-12-09 08:59] LABS: Glucose Point of Care 337 mg/dl (65-105)
[2020-12-09] MEDS: INSULIN ASPART (*BKC) 100 UNITS/ML 10 UNITS SUB-Q ×3 (09:49→18:17)
[2020-12-09] MEDS: carvediloL 12.5 MG TABLET PO ×2 (09:49→18:14)
[2020-12-09] MEDS: INSULIN ASPART (*BKC) 100 UNITS/ML SUB-Q ×3 (09:49→18:17)
[2020-12-09] MEDS: allopurinoL 300 MG TABLET PO (09:49)
[2020-12-09] MEDS: amLODIPine BESYLATE 2.5 MG TABLET PO (09:50)
[2020-12-09] MEDS: CARBIDOPA/LEVODOPA 25/250 MG TABLET 1 TABLET PO ×2 (09:50→18:14)
[2020-12-09] MEDS: SODIUM BICARBONATE TAB 650 MG TABLET 1300 MG PO ×2 (09:50→18:16)
[2020-12-09] MEDS: APIXABAN 2.5 MG TABLET PO ×2 (09:50→18:13)
[2020-12-09] MEDS: PANTOPRAZOLE 40 MG TABLET PO ×2 (09:50→21:46)
[2020-12-09] MEDS: BRIMONIDINE TARTRATE 0.2% OP SOLN 5 ML BTL 1 DROP EACH EYE ×3 (09:50→18:13)
[2020-12-09] MEDS: ISOSORBIDE DINITRATE 20 MG TABLET PO ×3 (09:50→18:16)
[2020-12-09] MEDS: hydrALAZINE HCL 50 MG TABLET 100 MG PO ×3 (09:50→18:15)
[2020-12-09] MEDS: ASPIRIN 81 MG ENTERIC TABLET PO (09:50)
[2020-12-09] MEDS: predniSONE 5 MG TABLET PO (09:50)
[2020-12-09] MEDS: INSULIN GLARGINE (*BKC) 100 UNITS/ML 35 UNITS SUB-Q (09:50)
--- NOTE | 2020-12-09 11:19 | PCNFU ---
Nutrition Follow-Up Complete: Inadequate oral intake related to COVID-19 , sepsis and UTI as evidenced by average meal intake of 21% and weight loss of 12 pounds since being admitted on 05/16/2020. Goal: Patient to meet estimated nutritional needs. Patient is progressing towards goal. We will continue current goal. Pt current nutrition is Minced and Moist, Level 5/DBCC. Last recorded weight is 91 kg, no new weight to report. Recommend a re-weight. Bowel Motility:+BM reported 12/08 Labs Reviewed:Glu 329,Cr 3.4,Na 131,Alb 2.8, Hct 36.9,Hgb 12.8. Meds Noted: Novolog,Lantus, Bumex, Lipitor, Effexor, Prednisone. Additional Notes:Nutrition follow up. Patient is a feeder. Breakfast today about 25% of meal-macedonian toast, sausage, oatmeal. Diet supplements: Nepro BID providing an additional 425 kcals and 19 gms protein. Overall intake's have been 50,75% of meals. Agree with current diet orders. Monitor: patient's labs, medications, weight, and oral intake every 5 days.
[2020-12-09 12:30] LABS: Glucose Point of Care 319 mg/dl (65-105)
[2020-12-09] MEDS: CARBIDOPA/LEVODOPA 25/100 MG CR TABLET 2 TABLET PO (12:34)
--- NOTE | 2020-12-09 13:24 | PCOTNOTE ---
Per [facility] report on decline in participation due to decline in health, pt. goals downgraded
--- NOTE | 2020-12-09 15:13 | PM.IMPN ---
Progress Note: A&P Assessment and Plan (1) Altered mental status: Qualifiers: Altered mental status type: unspecified Qualified Code(s): R41.82 - Altered mental status, unspecified Code(s): R41.82 - Altered mental status, unspecified Status: Acute Assessment and Plan: Patient was AOx4 by admitting provider. TSH noted but FT4 normal. B12/folate normal. CT brain 11/28 showing no acute changes. Patient with diffuse weakness and was nonverbal on 11/[address] showing no acute changes. MRI brain 12/01 also showing no acute findings. He remains on ASA and Eliquis. Suspect mental status changes related to the UTI and/or colitis with slow recovery of mental status (as explained by ); consider also from COVID and/or uremia and/or Parkinson. Neurology consulted and did not recommend any changes. Continue to re-orient. No answer at 's number. (2) Generalized weakness: Code(s): R53.1 - Weakness Status: Acute Assessment and Plan: Patient with diffuse weakness at last admission. Normally walks with walker or cane at home and was recently in therapy; he does require gait belt at times for balance issues. Workup last admission showing carotid stenosis but CT brain negative for acute process. He worked with PT and OT and was minimum assistance x1 at discharge. Patient returned due to increasing weakness felt related to COVID and now UTI. Also has colitis which could be contributing. CT brain again showing no acute process. MBS results noted and appropriate diet has been started. Brain MRI also showing no acute process. Echo EF 55-60% and diastolic dysfunction grade II. Continue PT/OT. (3) Chronic renal failure, stage 3 (moderate): Code(s): N18.30 - Chronic kidney disease, stage 3 unspecified Status: Acute Assessment and Plan: Creatinine earlier this year ranging mostly from 3.1-3.7. Creatinine Cr 3.3 and BUN 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 Jd 24 with FENa 0.4% probably related to dehydration from poor oral intake. Renal US showing no acute findings. He has persistent metabolic acidosis with serum bicarb as low as 13 so oral bicarb advanced with improvement; serum bicarb 18 now. Cr climbed to 3.6 but better at 3.2 today. BUN up to 109 today. Higher BUN partially related to the steroids so Decadron stopped (last dose on 12/06). BUN should trend down soon. Discussed with nephrology. No plans for dialysis at this time. Nephrology following and appreciate their help. (4) COVID-19: Code(s): U07.1 - COVID-19 Status: Acute Assessment and Plan: Patient became symptomatic around 11/19/20 and tested positive 11/24. Patient is vaccinated and he received a 3rd dose earlier in October. Patient is >2 weeks out from symptom onset of COVID. He needed O2 briefly last admission but he was off O2 after an extra dose of Bumex IV given. On admission, CXR showing unchanged opacities in the lateral left lower lung zone and CT Abd showing airspace disease in the bilateral lower lobes which could represent pneumonia including COVID pneumonia. [place] pulmonary infarct unlikely. Steroid should be considered if SpO2 <= 94 and patient met this criteria and CXR slightly worse so it was decided to proceed with Decadron. BUN worsening and SpO2 improved so decided to stop Decadron. Monitor. (5) Acute UTI: Code(s): N39.0 - Urinary tract infection, site not specified Status: Acute Assessment and Plan: UA was suspicious for UTI. CT Abd/Pelvis diffuse mild bladder wall thickening with mild haziness to the surrounding fat which could be due to cystitis either acute or chronic or due to chronic outlet obstruction from the enlarged prostate. He also had a Davidson placed last admission but was not discharged with one. Davidson replaced this admission. UCx growing Klebsiella sensitive to Rocephin
--- NOTE | 2020-12-09 15:42 | P.PNNP_ITS ---
Progress Note: A&P Assessment and Plan (1) Renal transplant recipient: Code(s): Z94.0 - Kidney transplant status Status: Chronic Assessment and Plan: * s/p transplantation ~ 13 years ago * unfortunately, his renal function has been slowly deteriorating...worsened by COVID -19??? * his creatinine has fluctuated to the extremes of 2.4 - 3.6mg/dl in the last 6 months per [facility] Trans[facility] * by last labs at [facility]: - creatinine 2.8mg/dl on 10/14/20 - creatinine 3.6mg/dl on 09/29/20 - creatinine 3.35mg/dl on 08/30/20 - creatinine 2.79mg/dl on 07/28/20 * remains on tacrolimus and prednisone * transplant renal ultrasound okay * nephrotic range proteinuria noted * urine electrolytes are prerenal * urine output is increasing... 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 Olivia) (3) COVID-19: Code(s): U07.1 - COVID-19 Status: Acute Assessment and Plan: * The patient has COVID-19 * no evidence of hypoxia at this time * however, present last week so given steroids (started on 12/02/20) - this is likely contributing to elevated BUN * continue supportive therapy (4) Altered mental status: Qualifiers: Altered mental status type: unspecified Qualified Code(s): R41.82 - Altered mental status, unspecified Code(s): R41.82 - Altered mental status, unspecified Status: Acute Assessment and Plan: * suspect multifactorial: - infection (colitis + UTI + COVID-19) - uremia(?) -- will mentation improve when BUN improves? * CT/MRI imaging noted * Neurology following (5) Colitis: Code(s): K52.9 - Noninfective gastroenteritis and colitis, unspecified Status: Acute Assessment and Plan: * as noted by CT scan * completed course of antibiotics (ceftriaxone and flagyl) (6) Urinary tract infection: Qualifiers: Hematuria presence: without hematuria Urinary tract infection type: acute cystitis Qualified Code(s): N30.00 - Acute cystitis without hematuria Code(s): N39.0 - Urinary tract infection, site not specified Status: Acute Assessment and Plan: * urine culture with Klebsiella * completed course of antibiotics (7) HTN (hypertension): Qualifiers: Hypertension type: essential hypertension Qualified Code(s): I10 - Essential (primary) hypertension Code(s): I10 - Essential (primary) hypertension Status: Chronic Assessment and Plan: * appears stable * follow trend of hemodynamics (8) Diabetes: Qualifiers: Diabetes mellitus type: 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
--- NOTE | 2020-12-09 15:42 | PM.PNNEP ---
Progress Note: A&P Assessment and Plan (1) Renal transplant recipient: Code(s): Z94.0 - Kidney transplant status Status: Chronic Assessment and Plan: s/p transplantation ~ 13 years ago unfortunately, his renal function has been slowly deteriorating...worsened by COVID -19??? his creatinine has fluctuated to the extremes of 2.4 - 3.6mg/dl in the last 6 months per [facility] Transplant by last labs at [facility]: - creatinine 2.8mg/dl on 10/14/20 - creatinine 3.6mg/dl on 09/29/20 - creatinine 3.35mg/dl on 08/30/20 - creatinine 2.79mg/dl on 07/28/20 remains on tacrolimus and prednisone transplant renal ultrasound okay nephrotic range proteinuria noted urine electrolytes are prerenal urine output is increasing... 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 Olivia) (3) COVID-19: Code(s): U07.1 - COVID-19 Status: Acute Assessment and Plan: The patient has COVID-19 no evidence of hypoxia at this time however, present last week so given steroids (started on 12/02/20) - this is likely contributing to elevated BUN continue supportive therapy (4) Altered mental status: Qualifiers: Altered mental status type: unspecified Qualified Code(s): R41.82 - Altered mental status, unspecified Code(s): R41.82 - Altered mental status, unspecified Status: Acute Assessment and Plan: suspect multifactorial: - infection (colitis + UTI + COVID-19) - uremia(?) -- will mentation improve when BUN improves? CT/MRI imaging noted Neurology following (5) Colitis: Code(s): K52.9 - Noninfective gastroenteritis and colitis, unspecified Status: Acute Assessment and Plan: as noted by CT scan completed course of antibiotics (ceftriaxone and flagyl) (6) Urinary tract infection: Qualifiers: Hematuria presence: without hematuria Urinary tract infection type: acute cystitis Qualified Code(s): N30.00 - Acute cystitis without hematuria Code(s): N39.0 - Urinary tract infection, site not specified Status: Acute Assessment and Plan: urine culture with Klebsiella completed course of antibiotics (7) HTN (hypertension): Qualifiers: Hypertension type: essential hypertension Qualified Code(s): I10 - Essential (primary) hypertension Code(s): I10 - Essential (primary) hypertension Status: Chronic Assessment and Plan: appears stable follow trend of hemodynamics (8) Diabetes: Qualifiers: Diabetes mellitus type: type 2 Diabetes mellitus [facility] insulin use: with [facility] use Diabetes mellitus complication status: with neurologic complications Diabetes mellitus complication detail: with autonomic neuropathy Qualified Code(s): E11.43 - Type 2 diabetes mellitus with diabetic autonomic (poly)neuropathy; Z79.4 - halfway (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 Subjective Date/time seen: 12/09/20 15:42 Mentation remains the same -- awake/alert with stimulation but nonverbal; no distress noted at the time of my visit; mostly nods his head to my questions before he goes back to sleep; no issues/events overnight or earlier this; no problems per nursing. Exam Narrative: General: WD/WN male in NAD Heart: normal S1 and S2; no rub Lungs: clear but decreased a
[2020-12-09 17:59] LABS: Glucose Point of Care 275 mg/dl (65-105)
[2020-12-09] MEDS: rOPINIRole HCL 0.125 MG TABLET PO (21:45)
[2020-12-09] MEDS: TAMSULOSIN HCL 0.4 MG CAPSULE PO (21:45)
[2020-12-09] MEDS: VENLAFAXINE HCL XR 75 MG CAP.ER.24H PO (21:45)
[2020-12-09] MEDS: ATORVASTATIN 40 MG TABLET PO (21:45)
[2020-12-09] MEDS: LATANOPROST 0.005% OP SOLN 2.5 ML BTL 1 DROP EACH EYE (21:46)
[2020-12-09] MEDS: INSULIN GLARGINE (*BKC) 100 UNITS/ML 40 UNITS SUB-Q (22:00)
[2020-12-09 22:28] LABS: Glucose Point of Care 253 mg/dl (65-105)
[2020-12-10] VITALS (12 sets, daily range): BP systolic 137–158; BP diastolic 69–88; PULSE 72–93; RESP 14–20; TEMP 36.4–36.8; O2SAT 94–96
[2020-12-10] MEDS: CARBIDOPA/LEVODOPA 25/100 MG CR TABLET 2 TABLET PO ×3 (01:15→22:36)
[2020-12-10] MEDS: ALBUTEROL SULFATE NEB 2.5 MG/0.5 ML INH INHALATION ×4 (02:32→21:15)
[2020-12-10 08:23] LABS: Glucose Point of Care 120 mg/dl (65-105)
[2020-12-10 08:47] LABS: Albumin Level 2.7 g/dL (3.5-5.1); Anion Gap 6 mmol/L (8-16); Blood Urea Nitrogen 113 mg/dL (9-20); Calcium 9.2 mg/dL (8.4-10.2); Carbon Dioxide 22 mmol/L (22-30); Chloride 108 mmol/L (98-107); Estimated CRCL calculation 19 ml/min; Estimated Glomerular Filt Rate 19; Glucose 115 mg/dL (65-110); Potassium 4.5 mmol/L (3.4-5.0); Sodium 136 mmol/L (137-145)
[2020-12-10] MEDS: hydrALAZINE HCL 50 MG TABLET 100 MG PO ×3 (09:20→17:46)
[2020-12-10] MEDS: allopurinoL 300 MG TABLET PO (09:21)
[2020-12-10] MEDS: CARBIDOPA/LEVODOPA 25/250 MG TABLET 1 TABLET PO ×2 (09:21→17:47)
[2020-12-10] MEDS: PANTOPRAZOLE 40 MG TABLET PO ×2 (09:21→21:39)
[2020-12-10] MEDS: ISOSORBIDE DINITRATE 20 MG TABLET PO ×3 (09:21→17:47)
[2020-12-10] MEDS: SODIUM BICARBONATE TAB 650 MG TABLET 1300 MG PO ×2 (09:21→17:47)
[2020-12-10] MEDS: amLODIPine BESYLATE 2.5 MG TABLET PO (09:21)
[2020-12-10] MEDS: ASPIRIN 81 MG ENTERIC TABLET PO (09:22)
[2020-12-10] MEDS: predniSONE 5 MG TABLET PO (09:22)
[2020-12-10] MEDS: carvediloL 12.5 MG TABLET PO ×2 (09:22→17:47)
[2020-12-10] MEDS: calcitrioL 0.25 MCG CAPSULE 0.5 MCG PO (09:22)
[2020-12-10] MEDS: APIXABAN 2.5 MG TABLET PO ×2 (09:22→17:48)
[2020-12-10] MEDS: BRIMONIDINE TARTRATE 0.2% OP SOLN 5 ML BTL 1 DROP EACH EYE ×3 (09:23→17:46)
[2020-12-10] MEDS: INSULIN GLARGINE (*BKC) 100 UNITS/ML 35 UNITS SUB-Q (10:45)
[2020-12-10 12:17] LABS: Glucose Point of Care 88 mg/dl (65-105)
--- NOTE | 2020-12-10 12:52 | PM.IMPN ---
Progress Note: A&P Assessment and Plan (1) Altered mental status: Qualifiers: Altered mental status type: unspecified Qualified Code(s): R41.82 - Altered mental status, unspecified Code(s): R41.82 - Altered mental status, unspecified Status: Acute Assessment and Plan: Patient was AOx4 by admitting provider. TSH noted but FT4 normal. B12/folate normal. CT brain 11/28 showing no acute changes. Patient with diffuse weakness and was nonverbal on 11/[address] showing no acute changes. MRI brain 12/01 also showing no acute findings. He remains on ASA and Eliquis. Suspect mental status changes related to the UTI and/or colitis with slow recovery of mental status (as explained by ); consider also from COVID and/or uremia and/or Parkinson. Neurology consulted and did not recommend any changes. Continue to re-orient. Spoke with yesterday and she was updated. (2) Generalized weakness: Code(s): R53.1 - Weakness Status: Acute Assessment and Plan: Patient with diffuse weakness at last admission. Normally walks with walker or cane at home and was recently in therapy; he does require gait belt at times for balance issues. Workup last admission showing carotid stenosis but CT brain negative for acute process. He worked with PT and OT and was minimum assistance x1 at discharge. Patient returned due to increasing weakness felt related to COVID and now UTI. Also has colitis which could be contributing. CT brain again showing no acute process. MBS results noted and appropriate diet has been started. Brain MRI also showing no acute process. Echo EF 55-60% and diastolic dysfunction grade II. Continue PT/OT. (3) Chronic renal failure, stage 3 (moderate): Code(s): N18.30 - Chronic kidney disease, stage 3 unspecified Status: Acute Assessment and Plan: Creatinine earlier this year ranging mostly from 3.1-3.7. Creatinine Cr 3.3 and BUN 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 Jd 24 with FENa 0.4% probably related to dehydration from poor oral intake. Renal US showing no acute findings. He has persistent metabolic acidosis with serum bicarb as low as 13 so oral bicarb advanced with improvement; serum bicarb 18 now. Cr climbed to 3.6 but stable now at 3.2. BUN still elevated but unchanged at 113 today. Higher BUN partially related to the steroids so Decadron stopped (last dose on 12/06). BUN should trend down soon. Discussed with nephrology. No plans for dialysis at this time. Nephrology following and appreciate their help. (4) COVID-19: Code(s): U07.1 - COVID-19 Status: Acute Assessment and Plan: Patient became symptomatic around 11/19/20 and tested positive 11/24. Patient is vaccinated and he received a 3rd dose earlier in October. Patient is >2 weeks out from symptom onset of COVID. He needed O2 briefly last admission but he was off O2 after an extra dose of Bumex IV given. On admission, CXR showing unchanged opacities in the lateral left lower lung zone and CT Abd showing airspace disease in the bilateral lower lobes which could represent pneumonia including COVID pneumonia. [place] pulmonary infarct unlikely. Steroid should be considered if SpO2 <= 94 and patient met this criteria and CXR slightly worse so it was decided to proceed with Decadron. BUN worsening and SpO2 improved so decided to stop Decadron. Monitor. (5) Acute UTI: Code(s): N39.0 - Urinary tract infection, site not specified Status: Acute Assessment and Plan: UA was suspicious for UTI. CT Abd/Pelvis diffuse mild bladder wall thickening with mild haziness to the surrounding fat which could be due to cystitis either acute or chronic or due to chronic outlet obstruction from the enlarged prostate. He also had a Davidson placed last admission but was not discharged with one. Davidson replaced this admission. U
--- NOTE | 2020-12-10 14:15 | P.PNNP_ITS ---
Progress Note: A&P Assessment and Plan (1) Renal transplant recipient: Code(s): Z94.0 - Kidney transplant status Status: Chronic Assessment and Plan: * s/p transplantation ~ 13 years ago * unfortunately, his renal function has been slowly deteriorating...worsened by COVID -19??? * his creatinine has fluctuated to the extremes of 2.4 - 3.6mg/dl in the last 6 months per [facility] Transplant * by last labs at [facility]: - creatinine 2.8mg/dl on 10/14/20 - creatinine 3.6mg/dl on 09/29/20 - creatinine 3.35mg/dl on 08/30/20 - creatinine 2.79mg/dl on 07/28/20 * remains on tacrolimus and prednisone * transplant renal ultrasound okay * nephrotic range proteinuria noted * urine electrolytes are prerenal * urine output is increasing... 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 Olivia) (3) COVID-19: Code(s): U07.1 - COVID-19 Status: Acute Assessment and Plan: * The patient has COVID-19 * no evidence of hypoxia at this time * however, present last week so given steroids (started on 12/02/20) but off now - this likely contributing to elevated BUN * continue supportive therapy (4) Altered mental status: Qualifiers: Altered mental status type: unspecified Qualified Code(s): R41.82 - Altered mental status, unspecified Code(s): R41.82 - Altered mental status, unspecified Status: Acute Assessment and Plan: * suspect multifactorial: - infection (colitis + UTI + COVID-19) - uremia(?) -- will mentation improve when BUN improves? * CT/MRI imaging noted * Neurology following (5) Colitis: Code(s): K52.9 - Noninfective gastroenteritis and colitis, unspecified Status: Acute Assessment and Plan: * as noted by CT scan * completed course of antibiotics (ceftriaxone and flagyl) (6) Urinary tract infection: Qualifiers: Hematuria presence: without hematuria Urinary tract infection type: acute cystitis Qualified Code(s): N30.00 - Acute cystitis without hematuria Code(s): N39.0 - Urinary tract infection, site not specified Status: Acute Assessment and Plan: * urine culture with Klebsiella * completed course of antibiotics (7) HTN (hypertension): Qualifiers: Hypertension type: essential hypertension Qualified Code(s): I10 - Essential (primary) hypertension Code(s): I10 - Essential (primary) hypertension Status: Chronic Assessment and Plan: * appears stable * follow trend of hemodynamics (8) Diabetes: Qualifiers: Diabetes mellitus type: type 2 Diabetes mellitus [facility] insulin use: with [employer] tender 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
--- NOTE | 2020-12-10 14:15 | PM.PNNEP ---
Progress Note: A&P Assessment and Plan (1) Renal transplant recipient: Code(s): Z94.0 - Kidney transplant status Status: Chronic Assessment and Plan: s/p transplantation ~ 13 years ago unfortunately, his renal function has been slowly deteriorating...worsened by COVID -19??? his creatinine has fluctuated to the extremes of 2.4 - 3.6mg/dl in the last 6 months per [facility] Transplant by last labs at [facility]: - creatinine 2.8mg/dl on 10/14/20 - creatinine 3.6mg/dl on 09/29/20 - creatinine 3.35mg/dl on 08/30/20 - creatinine 2.79mg/dl on 07/28/20 remains on tacrolimus and prednisone transplant renal ultrasound okay nephrotic range proteinuria noted urine electrolytes are prerenal urine output is increasing... 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 Olivia) (3) COVID-19: Code(s): U07.1 - COVID-19 Status: Acute Assessment and Plan: The patient has COVID-19 no evidence of hypoxia at this time however, present last week so given steroids (started on 12/02/20) but off now - this likely contributing to elevated BUN continue supportive therapy (4) Altered mental status: Qualifiers: Altered mental status type: unspecified Qualified Code(s): R41.82 - Altered mental status, unspecified Code(s): R41.82 - Altered mental status, unspecified Status: Acute Assessment and Plan: suspect multifactorial: - infection (colitis + UTI + COVID-19) - uremia(?) -- will mentation improve when BUN improves? CT/MRI imaging noted Neurology following (5) Colitis: Code(s): K52.9 - Noninfective gastroenteritis and colitis, unspecified Status: Acute Assessment and Plan: as noted by CT scan completed course of antibiotics (ceftriaxone and flagyl) (6) Urinary tract infection: Qualifiers: Hematuria presence: without hematuria Urinary tract infection type: acute cystitis Qualified Code(s): N30.00 - Acute cystitis without hematuria Code(s): N39.0 - Urinary tract infection, site not specified Status: Acute Assessment and Plan: urine culture with Klebsiella completed course of antibiotics (7) HTN (hypertension): Qualifiers: Hypertension type: essential hypertension Qualified Code(s): I10 - Essential (primary) hypertension Code(s): I10 - Essential (primary) hypertension Status: Chronic Assessment and Plan: appears stable follow trend of hemodynamics (8) Diabetes: Qualifiers: 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 Subjective Date/time seen: 12/10/20 14:15 Nursing reports that appetite and oral intake appear to be improving; however, mentation remains the same (awake/alert but noncommunicative); no apparent distress noted; no events/issues overnight or earlier this AM. Exam Narrative: General: WD/WN male in NAD Heart: normal S1 and S2; no rub Lungs: clear but decreased at bases Abdomen: soft, nontend
[2020-12-10 14:32] LABS: Glucose Point of Care 66 mg/dl (65-105)
[2020-12-10] MEDS: GLUCOSE ORAL GEL 15 GM OF GLUCSE IN 37.5 GM TUBE PO ×2 (14:41→21:34)
[2020-12-10 15:05] LABS: Glucose Point of Care 84 mg/dl (65-105)
[2020-12-10 17:37] LABS: Glucose Point of Care 97 mg/dl (65-105)
[2020-12-10] MEDS: ACETAMINOPHEN 325 MG TABLET 650 MG PO (17:54)
[2020-12-10] MEDS: VENLAFAXINE HCL XR 75 MG CAP.ER.24H PO (21:38)
[2020-12-10] MEDS: rOPINIRole HCL 0.125 MG TABLET PO (21:39)
[2020-12-10] MEDS: LATANOPROST 0.005% OP SOLN 2.5 ML BTL 1 DROP EACH EYE (21:39)
[2020-12-10] MEDS: ATORVASTATIN 40 MG TABLET PO (21:39)
[2020-12-10] MEDS: TAMSULOSIN HCL 0.4 MG CAPSULE PO (21:39)
[2020-12-10] MEDS: DEXTROSE 50% 25 GM/50 ML SYRINGE IV PUSH (21:56)
[2020-12-10 22:46] LABS: Glucose Point of Care 131 mg/dl (65-105)
[2020-12-10 22:46] LABS: Glucose Point of Care 63 mg/dl (65-105)
[2020-12-10 22:46] LABS: Glucose Point of Care 58 mg/dl (65-105)
[2020-12-11] VITALS (12 sets, daily range): BP systolic 131–157; BP diastolic 88–92; PULSE 62–96; RESP 12–20; TEMP 36.6–36.9; O2SAT 96–100
[2020-12-11 01:17] LABS: Glucose Point of Care 96 mg/dl (65-105)
[2020-12-11] MEDS: ACETAMINOPHEN 325 MG TABLET 650 MG PO ×2 (01:30→20:57)
[2020-12-11] MEDS: MELATONIN 5 MG TABLET PO ×2 (01:31→20:57)
[2020-12-11] MEDS: ALBUTEROL SULFATE NEB 2.5 MG/0.5 ML INH INHALATION ×4 (02:55→21:56)
[2020-12-11] MEDS: DEXTROSE 50% 25 GM/50 ML SYRINGE IV PUSH (05:12)
[2020-12-11 06:10] LABS: Glucose Point of Care 59 mg/dl (65-105)
[2020-12-11 06:10] LABS: Glucose Point of Care 103 mg/dl (65-105)
[2020-12-11 07:33] LABS: Albumin Level 2.6 g/dL (3.5-5.1); Anion Gap 4 mmol/L (8-16); Blood Urea Nitrogen 107 mg/dL (9-20); Carbon Dioxide 23 mmol/L (22-30); Chloride 111 mmol/L (98-107); Estimated CRCL calculation 20 ml/min; Estimated Glomerular Filt Rate 21; Glucose 93 mg/dL (65-110); Phosphorus 3.1 mg/dL (2.5-4.5); Potassium 4.5 mmol/L (3.4-5.0); Sodium 138 mmol/L (137-145)
[2020-12-11 08:15] LABS: Glucose Point of Care 83 mg/dl (65-105)
[2020-12-11] MEDS: BRIMONIDINE TARTRATE 0.2% OP SOLN 5 ML BTL 1 DROP EACH EYE ×3 (09:06→17:55)
[2020-12-11] MEDS: PANTOPRAZOLE 40 MG TABLET PO ×2 (09:07→20:52)
[2020-12-11] MEDS: APIXABAN 2.5 MG TABLET PO ×2 (09:07→17:56)
[2020-12-11] MEDS: CARBIDOPA/LEVODOPA 25/250 MG TABLET 1 TABLET PO ×2 (09:07→17:57)
[2020-12-11] MEDS: ASPIRIN 81 MG ENTERIC TABLET PO (09:07)
[2020-12-11] MEDS: carvediloL 12.5 MG TABLET PO ×2 (09:07→17:57)
[2020-12-11] MEDS: ISOSORBIDE DINITRATE 20 MG TABLET PO ×3 (09:07→17:56)
[2020-12-11] MEDS: predniSONE 5 MG TABLET PO (09:07)
[2020-12-11] MEDS: allopurinoL 300 MG TABLET PO (09:07)
[2020-12-11] MEDS: hydrALAZINE HCL 50 MG TABLET 100 MG PO ×3 (09:07→17:55)
[2020-12-11] MEDS: SODIUM BICARBONATE TAB 650 MG TABLET 1300 MG PO ×2 (09:07→17:56)
[2020-12-11] MEDS: amLODIPine BESYLATE 2.5 MG TABLET PO (09:07)
[2020-12-11 12:43] LABS: Glucose Point of Care 140 mg/dl (65-105)
--- NOTE | 2020-12-11 12:51 | PM.PNNEP ---
Progress Note: A&P Assessment and Plan (1) Renal transplant recipient: Code(s): Z94.0 - Kidney transplant status Status: Chronic Assessment and Plan: s/p transplantation ~ 13 years ago unfortunately, his renal function has been slowly deteriorating...worsened by COVID -19??? his creatinine has fluctuated to the extremes of 2.4 - 3.6mg/dl in the last 6 months per [facility] by last labs at [facility]: - creatinine 2.8mg/dl on 10/14/20 - creatinine 3.6mg/dl on 09/29/20 - creatinine 3.35mg/dl on 08/30/20 - creatinine 2.79mg/dl on 07/28/20 remains on tacrolimus and prednisone transplant renal ultrasound okay nephrotic range proteinuria noted urine electrolytes are prerenal urine output is increasing... 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 Olivia) (3) COVID-19: Code(s): U07.1 - COVID-19 Status: Acute Assessment and Plan: The patient has COVID-19 no evidence of hypoxia at this time however, present last week so given steroids (started on 12/02/20) but off now - this likely contributing to elevated BUN continue supportive therapy (4) Altered mental status: Qualifiers: Altered mental status type: unspecified Qualified Code(s): R41.82 - Altered mental status, unspecified Code(s): R41.82 - Altered mental status, unspecified Status: Acute Assessment and Plan: suspect multifactorial: - infection (colitis + UTI + COVID-19) - uremia(?) -- will mentation improve when BUN improves? CT/MRI imaging noted Neurology following (5) Colitis: Code(s): K52.9 - Noninfective gastroenteritis and colitis, unspecified Status: Acute Assessment and Plan: as noted by CT scan completed course of antibiotics (ceftriaxone and flagyl) (6) Urinary tract infection: Qualifiers: Hematuria presence: without hematuria Urinary tract infection type: acute cystitis Qualified Code(s): N30.00 - Acute cystitis without hematuria Code(s): N39.0 - Urinary tract infection, site not specified Status: Acute Assessment and Plan: urine culture with Klebsiella completed course of antibiotics (7) HTN (hypertension): Qualifiers: Hypertension type: essential hypertension Qualified Code(s): I10 - Essential (primary) hypertension Code(s): I10 - Essential (primary) hypertension Status: Chronic Assessment and Plan: appears stable follow trend of hemodynamics (8) Diabetes: Qualifiers: Diabetes mellitus 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 Subjective Date/time seen: 12/11/20 12:51 No real change with regard to his mentation -- he remains awake/alert but nonverbal (responds with mubbling and I am unable to understand him); per nursing, he is eating/drinking better; no issues/events overnight or earlier this AM. Exam Narrative: General: WD/WN male in NAD Heart: normal S1 and S2; no rub Lungs: clear but decreased at bases Abd
--- NOTE | 2020-12-11 12:51 | P.PNNP_ITS ---
Progress Note: A&P Assessment and Plan (1) Renal transplant recipient: Code(s): Z94.0 - Kidney transplant status Status: Chronic Assessment and Plan: * s/p transplantation ~ 13 years ago * unfortunately, his renal function has been slowly deteriorating...worsened by COVID -19??? * his creatinine has fluctuated to the extremes of 2.4 - 3.6mg/dl in the last 6 months per [facility] * by last labs at [facility]: - creatinine 2.8mg/dl on 10/14/20 - creatinine 3.6mg/dl on 09/29/20 - creatinine 3.35mg/dl on 08/30/20 - creatinine 2.79mg/dl on 07/28/20 * remains on tacrolimus and prednisone * transplant renal ultrasound okay * nephrotic range proteinuria noted * urine electrolytes are prerenal * urine output is increasing... 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 Olivia) (3) COVID-19: Code(s): U07.1 - COVID-19 Status: Acute Assessment and Plan: * The patient has COVID-19 * no evidence of hypoxia at this time * however, present last week so given steroids (started on 12/02/20) but off now - this likely contributing to elevated BUN * continue supportive therapy (4) Altered mental status: Qualifiers: Altered mental status type: unspecified Qualified Code(s): R41.82 - Altered mental status, unspecified Code(s): R41.82 - Altered mental status, unspecified Status: Acute Assessment and Plan: * suspect multifactorial: - infection (colitis + UTI + COVID-19) - uremia(?) -- will mentation improve when BUN improves? * CT/MRI imaging noted * Neurology following (5) Colitis: Code(s): K52.9 - Noninfective gastroenteritis and colitis, unspecified Status: Acute Assessment and Plan: * as noted by CT scan * completed course of antibiotics (ceftriaxone and flagyl) (6) Urinary tract infection: Qualifiers: Hematuria presence: without hematuria Urinary tract infection type: acute cystitis Qualified Code(s): N30.00 - Acute cystitis without hematuria Code(s): N39.0 - Urinary tract infection, site not specified Status: Acute Assessment and Plan: * urine culture with Klebsiella * completed course of antibiotics (7) HTN (hypertension): Qualifiers: Hypertension type: essential hypertension Qualified Code(s): I10 - Essential (primary) hypertension Code(s): I10 - Essential (primary) hypertension Status: Chronic Assessment and Plan: * appears stable * follow trend of hemodynamics (8) Diabetes: Qualifiers: Diabetes mellitus type: type 2 Diabetes mellitus custodial insulin use: with termite renewal inspector 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
[2020-12-11] MEDS: CARBIDOPA/LEVODOPA 25/100 MG CR TABLET 2 TABLET PO (13:26)
--- NOTE | 2020-12-11 14:06 | PCOTNOTE ---
Attempted to see pt this PM for occupational therapy tx, however, pt repeatedly closed his eyes when therapist said his name and shook his head no . Pt was educated on the purpose and benefits of continued therapy in order to increase quality of life and independence with daily occupations. RN was made aware of pt's refusal. Will continue per poc duration/frequency when appropriate.
[2020-12-11 16:54] LABS: Glucose Point of Care 196 mg/dl (65-105)
[2020-12-11] MEDS: rOPINIRole HCL 0.125 MG TABLET PO (20:52)
[2020-12-11] MEDS: ATORVASTATIN 40 MG TABLET PO (20:52)
[2020-12-11] MEDS: LATANOPROST 0.005% OP SOLN 2.5 ML BTL 1 DROP EACH EYE (20:53)
[2020-12-11] MEDS: VENLAFAXINE HCL XR 75 MG CAP.ER.24H PO (20:53)
[2020-12-11] MEDS: TAMSULOSIN HCL 0.4 MG CAPSULE PO (20:53)
[2020-12-11 21:39] LABS: Glucose Point of Care 240 mg/dl (65-105)
[2020-12-12] VITALS (14 sets, daily range): BP systolic 142–154; BP diastolic 69–87; PULSE 70–91; RESP 18–20; TEMP 36.7–37.1; O2SAT 96–98; BMI 10.0
[2020-12-12] MEDS: CARBIDOPA/LEVODOPA 25/100 MG CR TABLET 2 TABLET PO ×3 (01:15→22:02)
[2020-12-12] MEDS: ALBUTEROL SULFATE NEB 2.5 MG/0.5 ML INH INHALATION ×4 (02:32→20:45)
[2020-12-12 06:14] LABS: Glucose Point of Care 199 mg/dl (65-105)
[2020-12-12 06:47] LABS: Albumin Level 2.7 g/dL (3.5-5.1); Anion Gap 6 mmol/L (8-16); Blood Urea Nitrogen 106 mg/dL (9-20); Calcium 8.9 mg/dL (8.4-10.2); Carbon Dioxide 22 mmol/L (22-30); Chloride 111 mmol/L (98-107); Estimated CRCL calculation 20 ml/min; Estimated Glomerular Filt Rate 21; Glucose 220 mg/dL (65-110); Phosphorus 3.4 mg/dL (2.5-4.5); Sodium 139 mmol/L (137-145)
[2020-12-12 08:37] LABS: Glucose Point of Care 218 mg/dl (65-105)
[2020-12-12] MEDS: APIXABAN 2.5 MG TABLET PO ×2 (08:49→18:08)
[2020-12-12] MEDS: hydrALAZINE HCL 50 MG TABLET 100 MG PO ×3 (08:49→18:10)
[2020-12-12] MEDS: BRIMONIDINE TARTRATE 0.2% OP SOLN 5 ML BTL 1 DROP EACH EYE ×3 (08:49→18:07)
[2020-12-12] MEDS: predniSONE 5 MG TABLET PO (08:49)
[2020-12-12] MEDS: SODIUM BICARBONATE TAB 650 MG TABLET 1300 MG PO ×2 (08:50→18:08)
[2020-12-12] MEDS: INSULIN ASPART (*BKC) 100 UNITS/ML SUB-Q ×3 (08:50→18:29)
[2020-12-12] MEDS: PANTOPRAZOLE 40 MG TABLET PO ×2 (08:50→21:49)
[2020-12-12] MEDS: ISOSORBIDE DINITRATE 20 MG TABLET PO ×3 (08:50→18:08)
[2020-12-12] MEDS: allopurinoL 300 MG TABLET PO (08:50)
[2020-12-12] MEDS: carvediloL 12.5 MG TABLET PO ×2 (08:50→18:09)
[2020-12-12] MEDS: amLODIPine BESYLATE 2.5 MG TABLET PO (08:50)
[2020-12-12] MEDS: ASPIRIN 81 MG ENTERIC TABLET PO (08:50)
[2020-12-12] MEDS: CARBIDOPA/LEVODOPA 25/250 MG TABLET 1 TABLET PO ×2 (08:50→18:09)
[2020-12-12] MEDS: ACETAMINOPHEN 325 MG TABLET 650 MG PO ×2 (09:28→22:24)
--- NOTE | 2020-12-12 11:06 | P.PNIM_ITS ---
Progress Note: A&P Assessment and Plan (1) Altered mental status: Qualifiers: Altered mental status type: unspecified Qualified Code(s): R41.82 - Altered mental status, unspecified Code(s): R41.82 - Altered mental status, unspecified Status: Acute Assessment and Plan: Patient was AOx4 by admitting provider. TSH noted but FT4 normal. B12/folate normal. CT brain 11/28 showing no acute changes. Patient with diffuse weakness and was nonverbal on 11/[address] showing no acute changes. MRI brain 12/01 also showing no acute findings. He remains on ASA and Eliquis. Suspect mental status changes related to the UTI and/or colitis with slow recovery of mental status (as explained by ); consider also from COVID and/or uremia and/or Parkinson. Neurology consulted and did not recommend any changes. Continue to re-orient. Spoke with yesterday and she was updated. (2) Generalized weakness: Code(s): R53.1 - Weakness Status: Acute Assessment and Plan: Patient with diffuse weakness at last admission. Normally walks with walker or cane at home and was recently in therapy; he does require gait belt at times for balance issues. Workup last admission showing carotid stenosis but CT brain negative for acute process. He worked with PT and OT and was minimum assistance x1 at discharge. Patient returned due to increasing weakness felt related to COVID and now UTI. Also has colitis which could be contributing. CT brain again showing no acute process. MBS results noted and appropriate diet has been started. Brain MRI also showing no acute process. Echo EF 55-60% and diastolic dysfunction grade II. Continue PT/OT. (3) Chronic renal failure, stage 3 (moderate): Code(s): N18.30 - Chronic kidney disease, stage 3 unspecified Status: Acute Assessment and Plan: Creatinine earlier this year ranging mostly from 3.1-3.7. Creatinine Cr 3.3 and BUN 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 Jd 24 with FENa 0.4% probably related to dehydration from poor oral intake. Renal US showing no acute findings. He has persistent metabolic acidosis with serum bicarb as low as 13 so oral bicarb advanced with improvement; serum bicarb 18 now. Cr climbed to 3.6 but stable now at 3.2. BUN still elevated but unchanged at 113 today. Higher BUN partially related to the steroids so Decadron stopped (last dose on 12/06). BUN should trend down soon. Discussed with nephrology. No plans for dialysis at this time. Nephrology following and appreciate their help. (4) COVID-19: Code(s): U07.1 - COVID-19 Status: Acute Assessment and Plan: Patient became symptomatic around 11/19/20 and tested positive 11/24. Patient is vaccinated and he received a 3rd dose earlier in October. Patient is >2 weeks out from symptom onset of COVID. He needed O2 briefly last admission but he was off O2 after an extra dose of Bumex IV given. On admission, CXR showing unchanged opacities in the lateral left lower lung zone and CT Abd showing airspace disease in the bilateral lower lobes which could represent pneumonia including COVID pneumonia. [place] pulmonary infarct unlikely. Steroid should be considered if SpO2 <= 94 and patient met this criteria and CXR slightly worse so it was decided to proceed with Decadron. BUN worsening and SpO2 improved so decided to stop Decadron. Monitor. (5) Acute UTI: Code(s): N39.0 - Urinary tract infection, site not specified Status: Acute Assessment and Plan: UA was suspicious for UTI. CT Abd/Pelvis diffuse mild bladder wall thickening
--- NOTE | 2020-12-12 12:19 | P.PNNP_ITS ---
Progress Note: A&P Assessment and Plan (1) Renal transplant recipient: Code(s): Z94.0 - Kidney transplant status Status: Chronic Assessment and Plan: * s/p transplantation ~ 13 years ago * unfortunately, his renal function has been slowly deteriorating...worsened by COVID -19??? * his creatinine has fluctuated to the extremes of 2.4 - 3.6mg/dl in the last 6 months per [facility] * by last labs at [facility]: - creatinine 2.8mg/dl on 10/14/20 - creatinine 3.6mg/dl on 09/29/20 - creatinine 3.35mg/dl on 08/30/20 - creatinine 2.79mg/dl on 07/28/20 * remains on tacrolimus and prednisone * transplant renal ultrasound okay * nephrotic range proteinuria noted * urine electrolytes are prerenal * urine output is increasing... 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 Olivia) (3) COVID-19: Code(s): U07.1 - COVID-19 Status: Acute Assessment and Plan: * The patient has COVID-19 * no evidence of hypoxia at this time * however, present last week so given steroids (started on 12/02/20) but off now - this likely contributing to elevated BUN * continue supportive therapy (4) Altered mental status: Qualifiers: Altered mental status type: unspecified Qualified Code(s): R41.82 - Altered mental status, unspecified Code(s): R41.82 - Altered mental status, unspecified Status: Acute Assessment and Plan: * suspect multifactorial: - infection (colitis + UTI + COVID-19) - uremia(?) -- will mentation improve when BUN improves? * CT/MRI imaging noted * Neurology following (5) Colitis: Code(s): K52.9 - Noninfective gastroenteritis and colitis, unspecified Status: Acute Assessment and Plan: * as noted by CT scan * completed course of antibiotics (ceftriaxone and flagyl) (6) Urinary tract infection: Qualifiers: Hematuria presence: without hematuria Urinary tract infection type: acute cystitis Qualified Code(s): N30.00 - Acute cystitis without hematuria Code(s): N39.0 - Urinary tract infection, site not specified Status: Acute Assessment and Plan: * urine culture with Klebsiella * completed course of antibiotics (7) HTN (hypertension): Qualifiers: Hypertension type: essential hypertension Qualified Code(s): I10 - Essential (primary) hypertension Code(s): I10 - Essential (primary) hypertension Status: Chronic Assessment and Plan: * appears stable * follow trend of hemodynamics (8) Diabetes: Qualifiers: Diabetes mellitus type: type 2 Diabetes mellitus care home insulin use: with care home use Diabetes mellitus complication status: with neurologic complications Diabetes mellitus complication detail: with autonomic neuropathy Qualified Code(s): E11.43 - Type 2 diabetes mellitus with diabetic autonomic (poly)neuropathy; Z79.4 - prison (current) use of insulin Code(s): E11.9 - Type 2 diabetes mellitus without complications Status: Acute Assessment and Plan: * follow accuchecks * on Lantus and SSI
--- NOTE | 2020-12-12 12:19 | PM.PNNEP ---
Progress Note: A&P Assessment and Plan (1) Renal transplant recipient: Code(s): Z94.0 - Kidney transplant status Status: Chronic Assessment and Plan: s/p transplantation ~ 13 years ago unfortunately, his renal function has been slowly deteriorating...worsened by COVID -19??? his creatinine has fluctuated to the extremes of 2.4 - 3.6mg/dl in the last 6 months per [facility] by last labs at [facility]: - creatinine 2.8mg/dl on 10/14/20 - creatinine 3.6mg/dl on 09/29/20 - creatinine 3.35mg/dl on 08/30/20 - creatinine 2.79mg/dl on 07/28/20 remains on tacrolimus and prednisone transplant renal ultrasound okay nephrotic range proteinuria noted urine electrolytes are prerenal urine output is increasing... 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 Olivia) (3) COVID-19: Code(s): U07.1 - COVID-19 Status: Acute Assessment and Plan: The patient has COVID-19 no evidence of hypoxia at this time however, present last week so given steroids (started on 12/02/20) but off now - this likely contributing to elevated BUN continue supportive therapy (4) Altered mental status: Qualifiers: Altered mental status type: unspecified Qualified Code(s): R41.82 - Altered mental status, unspecified Code(s): R41.82 - Altered mental status, unspecified Status: Acute Assessment and Plan: suspect multifactorial: - infection (colitis + UTI + COVID-19) - uremia(?) -- will mentation improve when BUN improves? CT/MRI imaging noted Neurology following (5) Colitis: Code(s): K52.9 - Noninfective gastroenteritis and colitis, unspecified Status: Acute Assessment and Plan: as noted by CT scan completed course of antibiotics (ceftriaxone and flagyl) (6) Urinary tract infection: Qualifiers: Hematuria presence: without hematuria Urinary tract infection type: acute cystitis Qualified Code(s): N30.00 - Acute cystitis without hematuria Code(s): N39.0 - Urinary tract infection, site not specified Status: Acute Assessment and Plan: urine culture with Klebsiella completed course of antibiotics (7) HTN (hypertension): Qualifiers: Hypertension type: essential hypertension Qualified Code(s): I10 - Essential (primary) hypertension Code(s): I10 - Essential (primary) hypertension Status: Chronic Assessment and Plan: appears stable follow trend of hemodynamics (8) Diabetes: Qualifiers: Diabetes mellitus type: type 2 Diabetes mellitus intermodal dispatcher insulin use: with intermodal dispatcher use Diabetes mellitus complication status: with neurologic complications Diabetes mellitus complication detail: with autonomic neuropathy Qualified Code(s): E11.43 - Type 2 diabetes mellitus with diabetic autonomic (poly)neuropathy; Z79.4 - terminal manager (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 Subjective Date/time seen: 12/12/20 12:19 Seems a bit more awake and alert at the time of my visit; no apparent distress noted; no specific complaints/concerns to report; no issues/events overnight or earlier this AM. Exam Narrative: General: WD/WN male in NAD Heart: normal S1 and S2; no rub Lungs: clear but decreased at bases Abdomen: soft, nontender, nondistended, positive bowel sounds
[2020-12-12 12:22] LABS: Glucose Point of Care 227 mg/dl (65-105)
--- NOTE | 2020-12-12 13:13 | PCPTNOTE ---
attempted therapy, but pt was not responding to verbal or obnoxious stimulus. He was not verbalizing, but when attempted to roll or sit to edge of bed, he was resistance to all movement. Pt would not remain awake during attempted treatment. Will attempt re-eval on 12/12/20.
[2020-12-12 17:28] LABS: Glucose Point of Care 237 mg/dl (65-105)
[2020-12-12] MEDS: LATANOPROST 0.005% OP SOLN 2.5 ML BTL 1 DROP EACH EYE (21:49)
[2020-12-12] MEDS: VENLAFAXINE HCL XR 75 MG CAP.ER.24H PO (21:49)
[2020-12-12] MEDS: rOPINIRole HCL 0.125 MG TABLET PO (21:49)
[2020-12-12] MEDS: ATORVASTATIN 40 MG TABLET PO (21:49)
[2020-12-12] MEDS: TAMSULOSIN HCL 0.4 MG CAPSULE PO (21:49)
[2020-12-12] MEDS: MELATONIN 5 MG TABLET PO (22:24)
[2020-12-12 23:57] LABS: Glucose Point of Care 245 mg/dl (65-105)
[2020-12-13] VITALS (16 sets, daily range): BP systolic 115–152; BP diastolic 57–102; PULSE 78–92; RESP 16–20; TEMP 36.1–37.1; O2SAT 94–98
[2020-12-13] MEDS: ALBUTEROL SULFATE NEB 2.5 MG/0.5 ML INH INHALATION ×4 (02:13→20:24)
[2020-12-13 06:26] LABS: Hematocrit 31.8 % (42.0-52.0); Hemoglobin 10.7 g/dL (14.0-18.0); Mean Corpuscular HGB Conc 33.6 g/dl (32-36); Mean Corpuscular Hemoglobin 31.6 pg (26-34); Mean Corpuscular Volume 93.8 fl (80-100); Mean Platelet Volume 11.6 fl (7.4-10.4); Platelet Count Result 168 k/mm3 (150-375); Red Blood Count 3.39 M/mm3 (4.6-6.20); Red Cell Distribution Width 16.2 % (11.5-14.5); White Blood Count 9.4 K/mm3 (4.5-10.0)
[2020-12-13 06:40] LABS: Albumin Level 2.8 g/dL (3.5-5.1); Anion Gap 8 mmol/L (8-16); Blood Urea Nitrogen 105 mg/dL (9-20); Carbon Dioxide 22 mmol/L (22-30); Chloride 111 mmol/L (98-107); Estimated CRCL calculation 19 ml/min; Estimated Glomerular Filt Rate 20; Glucose 244 mg/dL (65-110); Phosphorus 3.3 mg/dL (2.5-4.5); Potassium 5.2 mmol/L (3.4-5.0); Sodium 141 mmol/L (137-145)
--- NOTE | 2020-12-13 07:52 | P.PNNP_ITS ---
Progress Note: A&P Assessment and Plan (1) Renal transplant recipient: Code(s): Z94.0 - Kidney transplant status Status: Chronic Assessment and Plan: * s/p transplantation ~ 13 years ago * unfortunately, his renal function has been slowly deteriorating...worsened by COVID -19??? * his creatinine has fluctuated to the extremes of 2.4 - 3.6mg/dl in the last 6 months per [facility] Transplant * by last labs at [facility]: - creatinine 2.8mg/dl on 10/14/20 - creatinine 3.6mg/dl on 09/29/20 - creatinine 3.35mg/dl on 08/30/20 - creatinine 2.79mg/dl on 07/28/20 * remains on tacrolimus and prednisone * transplant renal ultrasound okay * nephrotic range proteinuria noted * urine electrolytes are prerenal * urine output is increasing... 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 Olivia) (3) COVID-19: Code(s): U07.1 - COVID-19 Status: Acute Assessment and Plan: * The patient has COVID-19 * off isolation now. * no evidence of hypoxia at this time * however, present last week so given steroids (started on 12/02/20) but off now - this likely contributing to elevated BUN . This has come down to 105. * continue supportive therapy (4) Altered mental status: Qualifiers: Altered mental status type: unspecified Qualified Code(s): R41.82 - Altered mental status, unspecified Code(s): R41.82 - Altered mental status, unspecified Status: Acute Assessment and Plan: * suspect multifactorial: - infection (colitis + UTI + COVID-19) - uremia(?) -- will mentation improve when BUN improves? * CT/MRI imaging noted * This seems to be a bit better. * Neurology following (5) Colitis: Code(s): K52.9 - Noninfective gastroenteritis and colitis, unspecified Status: Acute Assessment and Plan: * as noted by CT scan * completed course of antibiotics (ceftriaxone and flagyl) (6) Urinary tract infection: Qualifiers: Hematuria presence: without hematuria Urinary tract infection type: acute cystitis Qualified Code(s): N30.00 - Acute cystitis without hematuria Code(s): N39.0 - Urinary tract infection, site not specified Status: Acute Assessment and Plan: * urine culture with Klebsiella * completed course of antibiotics (7) HTN (hypertension): Qualifiers: Hypertension type: essential hypertension Qualified Code(s): I10 - Essential (primary) hypertension Code(s): I10 - Essential (primary) hypertension Status: Chronic Assessment and Plan: * appears stable * follow trend of hemodynamics (8) Diabetes: Qualifiers: Diabetes mellitus type: type 2 Diabetes mellitus rn long term care insulin use: with rn long term care use Diabetes mellitus complication status: with neurologic complications Diabetes mellitus complication detail: with autonomic neuropathy Qualified Code(s): E11.43 - Type 2 diabetes mellitus with diabetic autonomic (poly)neuropathy; Z79.4 - retirement (current) use of insulin Code(s): E11.9 - Type 2 diabetes mellitus without complications Status: Acute Assessment and Plan: * On Accu-Cheks and sliding-s
--- NOTE | 2020-12-13 07:52 | PM.PNNEP ---
Progress Note: A&P Assessment and Plan (1) Renal transplant recipient: Code(s): Z94.0 - Kidney transplant status Status: Chronic Assessment and Plan: s/p transplantation ~ 13 years ago unfortunately, his renal function has been slowly deteriorating...worsened by COVID -19??? his creatinine has fluctuated to the extremes of 2.4 - 3.6mg/dl in the last 6 months per [facility] by last labs at [facility]: - creatinine 2.8mg/dl on 10/14/20 - creatinine 3.6mg/dl on 09/29/20 - creatinine 3.35mg/dl on 08/30/20 - creatinine 2.79mg/dl on 07/28/20 remains on tacrolimus and prednisone transplant renal ultrasound okay nephrotic range proteinuria noted urine electrolytes are prerenal urine output is increasing... 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 Olivia) (3) COVID-19: Code(s): U07.1 - COVID-19 Status: Acute Assessment and Plan: The patient has COVID-19 off isolation now. no evidence of hypoxia at this time however, present last week so given steroids (started on 12/02/20) but off now - this likely contributing to elevated BUN . This has come down to 105. continue supportive therapy (4) Altered mental status: Qualifiers: Altered mental status type: unspecified Qualified Code(s): R41.82 - Altered mental status, unspecified Code(s): R41.82 - Altered mental status, unspecified Status: Acute Assessment and Plan: suspect multifactorial: - infection (colitis + UTI + COVID-19) - uremia(?) -- will mentation improve when BUN improves? CT/MRI imaging noted This seems to be a bit better. Neurology following (5) Colitis: Code(s): K52.9 - Noninfective gastroenteritis and colitis, unspecified Status: Acute Assessment and Plan: as noted by CT scan completed course of antibiotics (ceftriaxone and flagyl) (6) Urinary tract infection: Qualifiers: Hematuria presence: without hematuria Urinary tract infection type: acute cystitis Qualified Code(s): N30.00 - Acute cystitis without hematuria Code(s): N39.0 - Urinary tract infection, site not specified Status: Acute Assessment and Plan: urine culture with Klebsiella completed course of antibiotics (7) HTN (hypertension): Qualifiers: Hypertension type: essential hypertension Qualified Code(s): I10 - Essential (primary) hypertension Code(s): I10 - Essential (primary) hypertension Status: Chronic Assessment and Plan: appears stable follow trend of hemodynamics (8) Diabetes: Qualifiers: Diabetes mellitus type: type 2 Diabetes mellitus jail insulin use: with jail use Diabetes mellitus complication status: with neurologic complications Diabetes mellitus complication detail: with autonomic neuropathy Qualified Code(s): E11.43 - Type 2 diabetes mellitus with diabetic autonomic (poly)neuropathy; Z79.4 - [facility] (current) use of insulin Code(s): E11.9 - Type 2 diabetes mellitus without complications Status: Acute Assessment and Plan: On Accu-Cheks and sliding-scale insulin. Subjective Date/time seen: 12/13/20 07:52 Interval history: Which is feeling okay today. He seems a bit withdrawn but seems to be alert and oriented eating okay he says. Exam Narrative: General: WD/WN male in NAD Heart: normal S1 and S2; no rub Lungs: clear but decreased at bases Abdomen: soft, nontender, nondistended, positive bowel sounds Extremities: no edema Skin: No rash Obj
[2020-12-13] MEDS: APIXABAN 2.5 MG TABLET PO ×2 (08:08→17:01)
[2020-12-13] MEDS: ARTIFICIAL TEARS OPHTH SOLN 15 ML BOTTLE 1 DROP EACH EYE (08:08)
[2020-12-13] MEDS: amLODIPine BESYLATE 2.5 MG TABLET PO (08:09)
[2020-12-13] MEDS: PANTOPRAZOLE 40 MG TABLET PO ×2 (08:09→21:08)
[2020-12-13] MEDS: ASPIRIN 81 MG ENTERIC TABLET PO (08:09)
[2020-12-13] MEDS: ISOSORBIDE DINITRATE 20 MG TABLET PO ×3 (08:09→17:01)
[2020-12-13] MEDS: hydrALAZINE HCL 50 MG TABLET 100 MG PO ×3 (08:09→16:59)
[2020-12-13] MEDS: SODIUM BICARBONATE TAB 650 MG TABLET 1300 MG PO ×2 (08:09→16:59)
[2020-12-13] MEDS: carvediloL 12.5 MG TABLET PO ×2 (08:10→17:03)
[2020-12-13] MEDS: calcitrioL 0.25 MCG CAPSULE 0.5 MCG PO (08:10)
[2020-12-13] MEDS: allopurinoL 300 MG TABLET PO (08:10)
[2020-12-13] MEDS: CARBIDOPA/LEVODOPA 25/250 MG TABLET 1 TABLET PO ×2 (08:11→17:07)
[2020-12-13] MEDS: BRIMONIDINE TARTRATE 0.2% OP SOLN 5 ML BTL 1 DROP EACH EYE ×3 (08:12→17:02)
[2020-12-13] MEDS: predniSONE 5 MG TABLET PO (08:12)
[2020-12-13 08:26] LABS: Glucose Point of Care 222 mg/dl (65-105)
[2020-12-13] MEDS: INSULIN ASPART (*BKC) 100 UNITS/ML SUB-Q ×2 (08:34→12:56)
[2020-12-13] MEDS: CARBIDOPA/LEVODOPA 25/100 MG CR TABLET 2 TABLET PO ×2 (11:33→22:13)
[2020-12-13 11:39] LABS: Glucose Point of Care 224 mg/dl (65-105)
[2020-12-13 12:02] LABS: Alanine Aminotransferase 6 U/L (4-50); Albumin Level 2.6 g/dL (3.5-5.1); Alkaline Phosphatase 72 U/L (38-126); Anion Gap 4 mmol/L (8-16); Aspartate Amino Transferase 24 U/L (17-59); Bilirubin,Total 0.7 mg/dL (0.2-1.3); Blood Urea Nitrogen 99 mg/dL (9-20); Calcium 8.7 mg/dL (8.4-10.2); Carbon Dioxide 23 mmol/L (22-30); Chloride 112 mmol/L (98-107); Estimated CRCL calculation 20 ml/min; Estimated Glomerular Filt Rate 21; Glucose 235 mg/dL (65-110); Potassium 4.7 mmol/L (3.4-5.0); Sodium 139 mmol/L (137-145)
--- NOTE | 2020-12-13 15:10 | PM.IMPN ---
Progress Note: A&P Assessment and Plan (1) Altered mental status: Qualifiers: Altered mental status type: unspecified Qualified Code(s): R41.82 - Altered mental status, unspecified Code(s): R41.82 - Altered mental status, unspecified Status: Acute Assessment and Plan: Patient was AOx4 by admitting provider. TSH noted but FT4 normal. B12/folate normal. CT brain 11/28 showing no acute changes. Patient with diffuse weakness and was nonverbal on 11/[address] showing no acute changes. MRI brain 12/01 also showing no acute findings. He remains on ASA and Eliquis. Suspect mental status changes related to the UTI and/or colitis with slow recovery of mental status (as explained by ); consider also from COVID and/or uremia and/or Parkinson. Neurology consulted and did not recommend any changes. Continue to re-orient. Spoke with today and she was updated. (2) Generalized weakness: Code(s): R53.1 - Weakness Status: Acute Assessment and Plan: Patient with diffuse weakness at last admission. Normally walks with walker or cane at home and was recently in therapy; he does require gait belt at times for balance issues. Workup last admission showing carotid stenosis but CT brain negative for acute process. He worked with PT and OT and was minimum assistance x1 at last discharge. Patient returned due to increasing weakness felt related to COVID and now UTI. Also has colitis which could be contributing. CT brain again showing no acute process. MBS results noted and appropriate diet has been started. Brain MRI also showing no acute process. Echo EF 55-60% and diastolic dysfunction grade II. Continue PT/OT. (3) Chronic renal failure, stage 3 (moderate): Code(s): N18.30 - Chronic kidney disease, stage 3 unspecified Status: Acute Assessment and Plan: Creatinine earlier this year ranging mostly from 3.1-3.7. Creatinine Cr 3.3 and BUN 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 Jd 24 with FENa 0.4% probably related to dehydration from poor oral intake. Renal US showing no acute findings. He has persistent metabolic acidosis with serum bicarb as low as 13 so oral bicarb advanced with improvement; serum bicarb 22 now. Cr climbed to 3.6 but stable now at 3.0. 24hr urine collection with GFR 11 - 13cc/min. BUN still elevated but improved to 99 today. Higher BUN partially related to the steroids (last dose off Decadron on 12/06). Potassium 5.2 this morning but better on repeat. Nephrology following and appreciate their help. (4) COVID-19: Code(s): U07.1 - COVID-19 Status: Acute Assessment and Plan: Patient became symptomatic around 11/19/20 and tested positive 11/24. Patient is vaccinated and he received a 3rd dose earlier in October. Patient is >2 weeks out from symptom onset of COVID. He needed O2 briefly last admission but he was off O2 after an extra dose of Bumex IV given. On admission, CXR showing unchanged opacities in the lateral left lower lung zone and CT Abd showing airspace disease in the bilateral lower lobes which could represent pneumonia including COVID pneumonia. [place] pulmonary infarct unlikely. Steroid should be considered if SpO2 <= 94 and patient met this criteria and CXR slightly worse so it was decided to proceed with Decadron. BUN worsened and SpO2 improved so decided to stop Decadron after 6 days. Remaining stable. (5) Acute UTI: Code(s): N39.0 - Urinary tract infection, site not specified Status: Acute Assessment and Plan: UA was suspicious for UTI. CT Abd/Pelvis diffuse mild bladder wall thickening with mild haziness to the surrounding fat which could be due to cystitis either acute or chronic or due to chronic outlet obstruction from the enlarged prostate. He also had a Davidson placed last admission but was not discharged with one. Davidson repla
[2020-12-13 15:56] LABS: Glucose Point of Care 286 mg/dl (65-105)
[2020-12-13] MEDS: rOPINIRole HCL 0.125 MG TABLET PO (21:08)
[2020-12-13] MEDS: ATORVASTATIN 40 MG TABLET PO (21:08)
[2020-12-13] MEDS: LATANOPROST 0.005% OP SOLN 2.5 ML BTL 1 DROP EACH EYE (21:08)
[2020-12-13] MEDS: TAMSULOSIN HCL 0.4 MG CAPSULE PO (21:08)
[2020-12-13] MEDS: VENLAFAXINE HCL XR 75 MG CAP.ER.24H PO (21:08)
[2020-12-13] MEDS: INSULIN GLARGINE (*BKC) 100 UNITS/ML 6 UNITS SUB-Q (21:09)
[2020-12-13 21:26] LABS: Glucose Point of Care 347 mg/dl (65-105)
[2020-12-13] MEDS: MELATONIN 5 MG TABLET PO (22:53)
[2020-12-13] MEDS: ACETAMINOPHEN 325 MG TABLET 650 MG PO (22:54)
[2020-12-14] VITALS (15 sets, daily range): BP systolic 122–156; BP diastolic 62–96; PULSE 82–92; RESP 20–24; TEMP 36.4–37; O2SAT 92–96
[2020-12-14] MEDS: ALBUTEROL SULFATE NEB 2.5 MG/0.5 ML INH INHALATION ×4 (02:45→21:04)
[2020-12-14 06:34] LABS: Albumin Level 2.6 g/dL (3.5-5.1); Anion Gap 4 mmol/L (8-16); Blood Urea Nitrogen 96 mg/dL (9-20); Calcium 8.7 mg/dL (8.4-10.2); Carbon Dioxide 23 mmol/L (22-30); Chloride 113 mmol/L (98-107); Estimated CRCL calculation 21 ml/min; Estimated Glomerular Filt Rate 21; Glucose 293 mg/dL (65-110); Phosphorus 3.1 mg/dL (2.5-4.5); Potassium 4.6 mmol/L (3.4-5.0); Sodium 140 mmol/L (137-145)
[2020-12-14 07:45] LABS: Glucose Point of Care 242 mg/dl (65-105)
[2020-12-14] MEDS: amLODIPine BESYLATE 2.5 MG TABLET PO (08:47)
[2020-12-14] MEDS: predniSONE 5 MG TABLET PO (08:47)
[2020-12-14] MEDS: carvediloL 12.5 MG TABLET PO ×2 (08:47→17:09)
[2020-12-14] MEDS: BRIMONIDINE TARTRATE 0.2% OP SOLN 5 ML BTL 1 DROP EACH EYE ×3 (08:47→17:07)
[2020-12-14] MEDS: hydrALAZINE HCL 50 MG TABLET 100 MG PO ×3 (08:47→17:07)
[2020-12-14] MEDS: SODIUM BICARBONATE TAB 650 MG TABLET 1300 MG PO ×2 (08:47→19:45)
[2020-12-14] MEDS: ISOSORBIDE DINITRATE 20 MG TABLET PO ×3 (08:48→17:08)
[2020-12-14] MEDS: ASPIRIN 81 MG ENTERIC TABLET PO (08:48)
[2020-12-14] MEDS: PANTOPRAZOLE 40 MG TABLET PO ×2 (08:51→22:26)
[2020-12-14] MEDS: CARBIDOPA/LEVODOPA 25/250 MG TABLET 1 TABLET PO ×2 (09:15→17:08)
[2020-12-14] MEDS: APIXABAN 2.5 MG TABLET PO ×2 (09:15→17:08)
[2020-12-14] MEDS: allopurinoL 300 MG TABLET PO (09:15)
[2020-12-14] MEDS: INSULIN ASPART (*BKC) 100 UNITS/ML SUB-Q ×3 (09:22→19:20)
--- NOTE | 2020-12-14 10:12 | P.PNIM_ITS ---
Progress Note: A&P Assessment and Plan (1) Altered mental status: Qualifiers: Altered mental status type: unspecified Qualified Code(s): R41.82 - Altered mental status, unspecified Code(s): R41.82 - Altered mental status, unspecified Status: Acute Assessment and Plan: Patient was AOx4 by admitting provider. TSH noted but FT4 normal. B12/folate normal. CT brain 11/28 showing no acute changes. Patient with diffuse weakness and was nonverbal on 11/[address] showing no acute changes. MRI brain 12/01 also showing no acute findings. He remains on ASA and Eliquis. Suspect mental status changes related to the UTI and/or colitis with slow recovery of mental status (as explained by ); consider also from COVID and/or uremia and/or Parkinson. Neurology consulted and did not recommend any changes. Continue to re-orient. Spoke with today and she was updated. Patient more verbal today and able to answer all orientation question today (2) Generalized weakness: Code(s): R53.1 - Weakness Status: Acute Assessment and Plan: Patient with diffuse weakness at last admission. Normally walks with walker or cane at home and was recently in therapy; he does require gait belt at times for balance issues. Workup last admission showing carotid stenosis but CT brain negative for acute process. He worked with PT and OT and was minimum assistance x1 at last discharge. Patient returned due to increasing weakness felt related to COVID and now UTI. Also has colitis which could be contributing. CT brain again showing no acute process. MBS results noted and appropriate diet has been started. Brain MRI also showing no acute process. Echo EF 55-60% and diastolic dysfunction grade II. Continue PT/OT. (3) Chronic renal failure, stage 3 (moderate): Code(s): N18.30 - Chronic kidney disease, stage 3 unspecified Status: Acute Assessment and Plan: Creatinine earlier this year ranging mostly from 3.1-3.7. Creatinine Cr 3.3 and BUN 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 Jd 24 with FENa 0.4% probably related to dehydration from poor oral intake. Renal US showing no acute findings. He has persistent metabolic acidosis with serum bicarb as low as 13 so oral bicarb advanced with improvement; serum bicarb 22 now. Cr climbed to 3.6 but stable now at 3.0. 24hr urine collection with GFR 11 - 13cc/min. BUN still elevated but improved to 99 today. Higher BUN partially related to the steroids (last dose off Decadron on 12/06). Potassium 5.2 this morning but better on repeat. Nephrology following and appreciate their help. (4) COVID-19: Code(s): U07.1 - COVID-19 Status: Acute Assessment and Plan: Patient became symptomatic around 11/19/20 and tested positive 11/24. Patient is vaccinated and he received a 3rd dose earlier in October. Patient is >2 weeks out from symptom onset of COVID. He needed O2 briefly last admission but he was off O2 after an extra dose of Bumex IV given. On admission, CXR showing unchanged opacities in the lateral left lower lung zone and CT Abd showing airspace disease in the bilateral lower lobes which could represent pneumonia including COVID pneumonia. [place] pulmonary infarct unlikely. Steroid should be considered if SpO2 <= 94 and patient met this criteria and CXR slightly worse so it was decided to proceed with Decadron. BUN worsened and SpO2 improved so decided to stop Decadron after 6 days. Remaining stable. (5) Acute UTI: Code(s): N39.0 - Urinary tract infection, site not specified Status: Acute
[2020-12-14 11:01] LABS: Glucose Point of Care 283 mg/dl (65-105)
[2020-12-14 11:15] LABS: Basophils Percent Auto 0.3 % (0.2-1.2); Eosinophils Absolute Auto 0.1 K/mm3 (0-0.3); Eosinophils Percent Auto 1.3 % (0-4.4); Hemoglobin 9.9 g/dL (14.0-18.0); Immature Granulocyte Absolute 0.12 K/mm3 (0.00-0.031); Immature Granulocyte Percent A 1.5 % (0-0.5); Lymphocytes Absolute Auto 0.84 K/mm3 (0.9-3.2); Lymphocytes Percent Auto 10.7 % (18.3-44.2); Mean Corpuscular Hemoglobin 31.7 pg (26-34); Mean Corpuscular Volume 96.2 fl (80-100); Mean Platelet Volume 12.1 fl (7.4-10.4); Monocytes Absolute Auto 0.7 K/mm3 (0.1-0.6); Monocytes Percent Auto 9.4 % (2.6-8.5); Neutrophils Percent Auto 76.8 % (45.5-73.1); Platelet Count Result 147 k/mm3 (150-375); Red Blood Count 3.12 M/mm3 (4.6-6.20); Red Cell Distribution Width 16.6 % (11.5-14.5); White Blood Count 7.9 K/mm3 (4.5-10.0)
--- NOTE | 2020-12-14 11:15 | PCNFU ---
Nutrition Follow-Up Complete: Inadequate oral intake related to COVID-19 , sepsis and UTI as evidenced by average meal intake of 21% and weight loss of 12 pounds since being admitted on 05/16/2020. Goal: Patient to meet estimated nutritional needs. Patient is progressing towards goal. We will continue current goal. Pt current nutrition is DBCC/ Minced and Moist, Level 5 Last recorded weight is 91 kg, no new weight to report. Recommend:new weight Bowel Motility:+BM reported 12/11 Labs Reviewed:Glu 293, GFR 21,BUN 96,Alb 2.6, CR 2.9 Meds Noted:Isordil, Protonix, Prednisone,Coreg,Lantus, Norvasc. Additional Notes:Nutrition follow up. Patient remains on a Minced and Moist, Level 5 Diabetic diet with Nepro shakes BID. Patient is assist with feedings. Nursing reporting about 25% of meals consumed. Patient is lethargic. No skin issues reported. Monitor patient's labs, medications, weight, and oral intake every 5 days.
[2020-12-14 11:25] LABS: Lactic Acid Reflex 1.6 mmol/L (0.7-2.1)
[2020-12-14] MEDS: CARBIDOPA/LEVODOPA 25/100 MG CR TABLET 2 TABLET PO ×2 (11:37→22:28)
[2020-12-14 11:40] LABS: Alanine Aminotransferase 8 U/L (4-50); Albumin Level 2.4 g/dL (3.5-5.1); Alkaline Phosphatase 85 U/L (38-126); Anion Gap 3 mmol/L (8-16); Aspartate Amino Transferase 27 U/L (17-59); Bilirubin,Total 0.6 mg/dL (0.2-1.3); Blood Urea Nitrogen 88 mg/dL (9-20); Calcium 8.9 mg/dL (8.4-10.2); Carbon Dioxide 27 mmol/L (22-30); Chloride 113 mmol/L (98-107); Estimated CRCL calculation 21 ml/min; Estimated Glomerular Filt Rate 21; Glucose 275 mg/dL (65-110); Potassium 4.9 mmol/L (3.4-5.0); Sodium 143 mmol/L (137-145)
--- NOTE | 2020-12-14 12:27 | P.PNNP_ITS ---
Progress Note: A&P Assessment and Plan (1) Renal transplant recipient: Code(s): Z94.0 - Kidney transplant status Status: Chronic Assessment and Plan: * s/p transplantation ~ 13 years ago * unfortunately, his renal function has been slowly deteriorating...worsened by COVID -19??? * his creatinine has fluctuated to the extremes of 2.4 - 3.6mg/dl in the last 6 months per [facility] Transplant * by last labs at [facility]: - creatinine 2.8mg/dl on 10/14/20 - creatinine 3.6mg/dl on 09/29/20 - creatinine 3.35mg/dl on 08/30/20 - creatinine 2.79mg/dl on 07/28/20 * remains on tacrolimus and prednisone * transplant renal ultrasound okay * nephrotic range proteinuria noted * urine electrolytes are prerenal * urine output is increasing... * 24hr urine collection with GFR 11 - 13cc/min * Creatinine is relatively stable. 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 Olivia) (3) COVID-19: Code(s): U07.1 - COVID-19 Status: Acute Assessment and Plan: * The patient has COVID-19 * off isolation now. * no evidence of hypoxia at this time * however, present last week so given steroids (started on 12/02/20) but off now - this likely contributing to elevated BUN . This has come down to 105. * continue supportive therapy * Timed out of isolation (4) Altered mental status: Qualifiers: Altered mental status type: unspecified Qualified Code(s): R41.82 - Altered mental status, unspecified Code(s): R41.82 - Altered mental status, unspecified Status: Acute Assessment and Plan: * suspect multifactorial: - infection (colitis + UTI + COVID-19) - uremia(?) -- will mentation improve when BUN improves? * CT/MRI imaging noted * This seems to be a bit better. * Neurology following (5) Colitis: Code(s): K52.9 - Noninfective gastroenteritis and colitis, unspecified Status: Acute Assessment and Plan: * as noted by CT scan * completed course of antibiotics (ceftriaxone and flagyl) (6) Urinary tract infection: Qualifiers: Hematuria presence: without hematuria Urinary tract infection type: acute cystitis Qualified Code(s): N30.00 - Acute cystitis without hematuria Code(s): N39.0 - Urinary tract infection, site not specified Status: Acute Assessment and Plan: * urine culture with Klebsiella * completed course of antibiotics (7) HTN (hypertension): Qualifiers: Hypertension type: essential hypertension Qualified Code(s): I10 - Essential (primary) hypertension Code(s): I10 - Essential (primary) hypertension Status: Chronic Assessment and Plan: * appears stable * follow trend of hemodynamics (8) Diabetes: Qualifiers: Diabetes mellitus type: type 2 Diabetes mellitus mcc insulin use: with mcc use Diabetes mellitus complication status: with neurologic complications Diabetes mellitus complication detail: with autonomic neuropathy Qualified Code(s): E11.43 - Type 2 diabetes mellitus with diabetic autonomic (poly)neuropathy; Z79.4 - [facility] (current) use of insulin Code(s): E11.9 - Type 2 diabetes mellitus without complications Status: Acute
--- NOTE | 2020-12-14 12:27 | PM.PNNEP ---
Progress Note: A&P Assessment and Plan (1) Renal transplant recipient: Code(s): Z94.0 - Kidney transplant status Status: Chronic Assessment and Plan: s/p transplantation ~ 13 years ago unfortunately, his renal function has been slowly deteriorating...worsened by COVID -19??? his creatinine has fluctuated to the extremes of 2.4 - 3.6mg/dl in the last 6 months per [facility] by last labs at [facility]: - creatinine 2.8mg/dl on 10/14/20 - creatinine 3.6mg/dl on 09/29/20 - creatinine 3.35mg/dl on 08/30/20 - creatinine 2.79mg/dl on 07/28/20 remains on tacrolimus and prednisone transplant renal ultrasound okay nephrotic range proteinuria noted urine electrolytes are prerenal urine output is increasing... 24hr urine collection with GFR 11 - 13cc/min Creatinine is relatively stable. 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 Olivia) (3) COVID-19: Code(s): U07.1 - COVID-19 Status: Acute Assessment and Plan: The patient has COVID-19 off isolation now. no evidence of hypoxia at this time however, present last week so given steroids (started on 12/02/20) but off now - this likely contributing to elevated BUN . This has come down to 105. continue supportive therapy Timed out of isolation (4) Altered mental status: Qualifiers: Altered mental status type: unspecified Qualified Code(s): R41.82 - Altered mental status, unspecified Code(s): R41.82 - Altered mental status, unspecified Status: Acute Assessment and Plan: suspect multifactorial: - infection (colitis + UTI + COVID-19) - uremia(?) -- will mentation improve when BUN improves? CT/MRI imaging noted This seems to be a bit better. Neurology following (5) Colitis: Code(s): K52.9 - Noninfective gastroenteritis and colitis, unspecified Status: Acute Assessment and Plan: as noted by CT scan completed course of antibiotics (ceftriaxone and flagyl) (6) Urinary tract infection: Qualifiers: Hematuria presence: without hematuria Urinary tract infection type: acute cystitis Qualified Code(s): N30.00 - Acute cystitis without hematuria Code(s): N39.0 - Urinary tract infection, site not specified Status: Acute Assessment and Plan: urine culture with Klebsiella completed course of antibiotics (7) HTN (hypertension): Qualifiers: Hypertension type: essential hypertension Qualified Code(s): I10 - Essential (primary) hypertension Code(s): I10 - Essential (primary) hypertension Status: Chronic Assessment and Plan: appears stable follow trend of hemodynamics (8) Diabetes: Qualifiers: Diabetes mellitus type: type 2 Diabetes mellitus termination clerk insulin use: with termination clerk use Diabetes mellitus complication status: with neurologic complications Diabetes mellitus complication detail: with autonomic neuropathy Qualified Code(s): E11.43 - Type 2 diabetes mellitus with diabetic autonomic (poly)neuropathy; Z79.4 - group home (current) use of insulin Code(s): E11.9 - Type 2 diabetes mellitus without complications Status: Acute Assessment and Plan: On Accu-Cheks and sliding-scale insulin. Subjective Date/time seen: 12/14/20 12:27 Interval history: Which is feeling okay today. He seems a bit withdrawn but seems to be alert and oriented eating okay he says. Exam Narrative: General: WD/WN male in NAD Heart: normal S1 and S2; no rub Lungs: clear but decreased at bases Abdomen: soft, nontender, nondistended, positive christina
--- NOTE | 2020-12-14 13:35 | P.CDI_ITS ---
CDI Query Clarification Request -Covid 19 has been documented - On admission, CXR showing unchanged opacities in the lateral left lower lung zone and CT Abd showing airspace disease in the bilateral lower lobes which could represent pneumonia including COVID pneumonia documented -12/14 CXR impression: diffuse lung disease with mild interval improvement consistent with pneumonia or less likely pulmonary edema. Please clarify if there is a possible additional diagnosis for above findings: * Covid 19 with pneumonia * Covid 19 * Other * Unable to determine <Estella Lord RN - Last Filed: 12/14/20 13:46> Clarified Diagnosis (1) COVID-19: Code(s): U07.1 - COVID-19 <Estella Lord RN - Last Filed: 12/14/20 13:46> Status: Resolved <Estella Lord RN - Last Filed: 12/14/20 13:46>
[2020-12-14 16:11] LABS: Glucose Point of Care 319 mg/dl (65-105)
[2020-12-14 17:13] LABS: Add Urine Microscopic? YES; Appearance Urine Cloudy (Clear); Bacteria Urine Trace /hpf; Bilirubin Urine Negative (Negative); Blood Urine 2+ (Negative); Budding Yeast Urine Present /hpf; Color Urine Yellow (Yellow); Glucose Urine UA 3+ mg/dL (Negative); Ketones Urine Trace mg/dL (Negative); Leukocyte Esterase Ur 3+ LEU/UL (Negative); Mucus Urine Rare /lpf; Nitrate Urine Negative (Negative); Protein Urine 3+ mg/dL (Negative); RBC Urine >75 /hpf (0-2); Specific Grav Ur 1.022 (1.001-1.035); Squamous Epithelial Cell Urine Occasional /hpf (Few); Urobilinogen Urine Negative mg/dL (<2.0); WBC Urine >75 /hpf
[2020-12-14 20:08] LABS: Iron 29 ug/dL (49-181)
[2020-12-14 20:17] LABS: Percent Iron Saturation 22 % (20-50)
[2020-12-14 21:18] LABS: Folic Acid > 20.0 ng/mL (2.76->20)
[2020-12-14] MEDS: ACETAMINOPHEN 325 MG TABLET 650 MG PO (22:25)
[2020-12-14] MEDS: TAMSULOSIN HCL 0.4 MG CAPSULE PO (22:26)
[2020-12-14] MEDS: MELATONIN 5 MG TABLET PO (22:26)
[2020-12-14] MEDS: rOPINIRole HCL 0.125 MG TABLET PO (22:26)
[2020-12-14] MEDS: ATORVASTATIN 40 MG TABLET PO (22:27)
[2020-12-14] MEDS: VENLAFAXINE HCL XR 75 MG CAP.ER.24H PO (22:27)
[2020-12-14] MEDS: LATANOPROST 0.005% OP SOLN 2.5 ML BTL 1 DROP EACH EYE (22:27)
[2020-12-14] MEDS: INSULIN GLARGINE (*BKC) 100 UNITS/ML 12 UNITS SUB-Q (22:28)
[2020-12-14 23:04] LABS: Glucose Point of Care 373 mg/dl (65-105)
[2020-12-15] VITALS (13 sets, daily range): BP systolic 113–153; BP diastolic 65–81; PULSE 72–88; RESP 14–25; TEMP 35.9–37.1; O2SAT 92–98
[2020-12-15] MEDS: ALBUTEROL SULFATE NEB 2.5 MG/0.5 ML INH INHALATION ×4 (01:50→20:39)
[2020-12-15 06:25] LABS: Add Urine Microscopic? YES; Appearance Urine Cloudy (Clear); Bilirubin Urine Negative (Negative); Blood Urine 2+ (Negative); Budding Yeast Urine Present /hpf; Color Urine Yellow (Yellow); Glucose Urine UA 3+ mg/dL (Negative); Ketones Urine Negative (Negative); Leukocyte Esterase Ur 3+ LEU/UL (NEGATIVE); Nitrate Urine Negative (Negative); Protein Urine 3+ mg/dL (Negative); RBC Urine >75 /hpf (0-2); Specific Grav Ur 1.021 (1.001-1.035); Urobilinogen Urine Negative mg/dL (<2.0); WBC Urine >75 /hpf (0-3)
[2020-12-15 06:46] LABS: Basophils Percent Auto 0.4 % (0.2-1.2); Eosinophils Absolute Auto 0.1 K/mm3 (0-0.3); Eosinophils Percent Auto 0.7 % (0-4.4); Hemoglobin 9.6 g/dL (14.0-18.0); Immature Granulocyte Absolute 0.09 K/mm3 (0.00-0.031); Immature Granulocyte Percent A 1.1 % (0-0.5); Lymphocytes Absolute Auto 0.73 K/mm3 (0.9-3.2); Lymphocytes Percent Auto 8.6 % (18.3-44.2); Mean Corpuscular HGB Conc 33.1 g/dl (32-36); Mean Corpuscular Hemoglobin 31.7 pg (26-34); Mean Corpuscular Volume 95.7 fl (80-100); Mean Platelet Volume 12.1 fl (7.4-10.4); Monocytes Absolute Auto 0.8 K/mm3 (0.1-0.6); Monocytes Percent Auto 9.7 % (2.6-8.5); Neutrophils Absolute Auto 6.8 K/mm3 (1.3-6.7); Neutrophils Percent Auto 79.5 % (45.5-73.1); Platelet Count Result 146 k/mm3 (150-375); Red Blood Count 3.03 M/mm3 (4.6-6.20); Red Cell Distribution Width 16.2 % (11.5-14.5); White Blood Count 8.5 K/mm3 (4.5-10.0)
[2020-12-15 07:00] LABS: Alanine Aminotransferase 7 U/L (4-50); Albumin Level 2.9 g/dL (3.5-5.1); Alkaline Phosphatase 100 U/L (38-126); Anion Gap 4 mmol/L (8-16); Aspartate Amino Transferase 34 U/L (17-59); Bilirubin,Total 0.7 mg/dL (0.2-1.3); Blood Urea Nitrogen 89 mg/dL (9-20); Calcium 8.9 mg/dL (8.4-10.2); Carbon Dioxide 24 mmol/L (22-30); Chloride 112 mmol/L (98-107); Estimated CRCL calculation 21 ml/min; Estimated Glomerular Filt Rate 21; Glucose 359 mg/dL (65-110); Potassium 4.7 mmol/L (3.4-5.0); Sodium 140 mmol/L (137-145)
[2020-12-15 08:52] LABS: Glucose Point of Care 312 mg/dl (65-105)
[2020-12-15] MEDS: PANTOPRAZOLE 40 MG TABLET PO ×2 (09:10→21:39)
[2020-12-15] MEDS: SODIUM BICARBONATE TAB 650 MG TABLET 1300 MG PO ×2 (09:11→18:11)
[2020-12-15] MEDS: ISOSORBIDE DINITRATE 20 MG TABLET PO ×3 (09:11→18:10)
[2020-12-15] MEDS: APIXABAN 2.5 MG TABLET PO ×2 (09:14→18:10)
[2020-12-15] MEDS: calcitrioL 0.25 MCG CAPSULE 0.5 MCG PO (09:14)
[2020-12-15] MEDS: carvediloL 12.5 MG TABLET PO ×2 (09:15→18:11)
[2020-12-15] MEDS: predniSONE 5 MG TABLET PO (09:15)
[2020-12-15] MEDS: hydrALAZINE HCL 50 MG TABLET 100 MG PO ×3 (09:15→18:09)
[2020-12-15] MEDS: ASPIRIN 81 MG ENTERIC TABLET PO (09:15)
[2020-12-15] MEDS: amLODIPine BESYLATE 2.5 MG TABLET PO (09:15)
[2020-12-15] MEDS: allopurinoL 300 MG TABLET PO (09:15)
[2020-12-15] MEDS: BRIMONIDINE TARTRATE 0.2% OP SOLN 5 ML BTL 1 DROP EACH EYE ×3 (09:16→18:10)
[2020-12-15] MEDS: CARBIDOPA/LEVODOPA 25/250 MG TABLET 1 TABLET PO ×2 (09:16→18:10)
[2020-12-15] MEDS: INSULIN ASPART (*BKC) 100 UNITS/ML SUB-Q ×3 (09:17→18:12)
[2020-12-15 12:15] LABS: Glucose Point of Care 250 mg/dl (65-105)
--- NOTE | 2020-12-15 14:01 | P.PNNP_ITS ---
Progress Note: A&P Assessment and Plan (1) Renal transplant recipient: Code(s): Z94.0 - Kidney transplant status Status: Chronic Assessment and Plan: * s/p transplantation ~ 13 years ago * unfortunately, his renal function has been slowly deteriorating...worsened by COVID -19??? * his creatinine has fluctuated to the extremes of 2.4 - 3.6mg/dl in the last 6 months per [facility] Transplant * by last labs at [facility]: - creatinine 2.8mg/dl on 10/14/20 - creatinine 3.6mg/dl on 09/29/20 - creatinine 3.35mg/dl on 08/30/20 - creatinine 2.79mg/dl on 07/28/20 * remains on tacrolimus and prednisone * transplant renal ultrasound okay * nephrotic range proteinuria noted * urine electrolytes are prerenal * urine output is increasing... * 24hr urine collection with GFR 11 - 13cc/min * Creatinine is relatively stable. * etiology of encephalopathy is still unclear. Even though his GFR is 11-13 I wonder if he may be uremic. Chest x-ray still shows fluid overload. Although he is not on oxygen. The excess fluid could be diluting the creatinine. I talked at length with Mrs. soler. For she understands that uremia is not a guarantee but could easily be the cause. she wanted me to talk with Dr. Olivia about it [place] I Talked with who wanted me to check with neurology about whether this could be parkinsonian dementia. If not he agrees with trying dialysis. 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 Olivia) (3) COVID-19: Code(s): U07.1 - COVID-19 Status: Acute Assessment and Plan: * The patient has COVID-19 * off isolation now. * Oxygenation is okay. (4) Altered mental status: Qualifiers: Altered mental status type: unspecified Qualified Code(s): R41.82 - Altered mental status, unspecified Code(s): R41.82 - Altered mental status, unspecified Status: Acute Assessment and Plan: * suspect multifactorial: - infection (colitis + UTI + COVID-19) - uremia(?) -- will mentation improve when BUN improves? * CT/MRI imaging noted * may be a little better today but there is significant waxing and waning that has happened over the last 3 weeks. * Neurology following * See above (5) Colitis: Code(s): K52.9 - Noninfective gastroenteritis and colitis, unspecified Status: Resolved Assessment and Plan: * as noted by CT scan * completed course of antibiotics (ceftriaxone and flagyl) (6) Urinary tract infection: Qualifiers: Hematuria presence: without hematuria Urinary tract infection type: acute cystitis Qualified Code(s): N30.00 - Acute cystitis without hematuria Code(s): N39.0 - Urinary tract infection, site not specified Status: Acute Assessment and Plan: * urine culture with Klebsiella * completed course of antibiotics * Now pyuria once again. Will see what the culture shows. (7) HTN (hypertension): Qualifiers: Hypertension type: essential hypertension Qualified Code(s): I10 - Essential (primary) hypertension Code(s): I10 - Essential (primary) hypertension Status: Chronic Assessment and Plan: * appears stable * follow trend of hem
--- NOTE | 2020-12-15 14:01 | PM.PNNEP ---
Progress Note: A&P Assessment and Plan (1) Renal transplant recipient: Code(s): Z94.0 - Kidney transplant status Status: Chronic Assessment and Plan: s/p transplantation ~ 13 years ago unfortunately, his renal function has been slowly deteriorating...worsened by COVID -19??? his creatinine has fluctuated to the extremes of 2.4 - 3.6mg/dl in the last 6 months per [facility] by last labs at [facility]: - creatinine 2.8mg/dl on 10/14/20 - creatinine 3.6mg/dl on 09/29/20 - creatinine 3.35mg/dl on 08/30/20 - creatinine 2.79mg/dl on 07/28/20 remains on tacrolimus and prednisone transplant renal ultrasound okay nephrotic range proteinuria noted urine electrolytes are prerenal urine output is increasing... 24hr urine collection with GFR 11 - 13cc/min Creatinine is relatively stable. etiology of encephalopathy is still unclear. Even though his GFR is 11-13 I wonder if he may be uremic. Chest x-ray still shows fluid overload. Although he is not on oxygen. The excess fluid could be diluting the creatinine. I talked at length with Mrs. soler. For she understands that uremia is not a guarantee but could easily be the cause. she wanted me to talk with Dr. Olivia about it [place] I Talked with who wanted me to check with neurology about whether this could be parkinsonian dementia. If not he agrees with trying dialysis. 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 Olivia) (3) COVID-19: Code(s): U07.1 - COVID-19 Status: Acute Assessment and Plan: The patient has COVID-19 off isolation now. Oxygenation is okay. (4) Altered mental status: Qualifiers: Altered mental status type: unspecified Qualified Code(s): R41.82 - Altered mental status, unspecified Code(s): R41.82 - Altered mental status, unspecified Status: Acute Assessment and Plan: suspect multifactorial: - infection (colitis + UTI + COVID-19) - uremia(?) -- will mentation improve when BUN improves? CT/MRI imaging noted may be a little better today but there is significant waxing and waning that has happened over the last 3 weeks. Neurology following See above (5) Colitis: Code(s): K52.9 - Noninfective gastroenteritis and colitis, unspecified Status: Resolved Assessment and Plan: as noted by CT scan completed course of antibiotics (ceftriaxone and flagyl) (6) Urinary tract infection: Qualifiers: Hematuria presence: without hematuria Urinary tract infection type: acute cystitis Qualified Code(s): N30.00 - Acute cystitis without hematuria Code(s): N39.0 - Urinary tract infection, site not specified Status: Acute Assessment and Plan: urine culture with Klebsiella completed course of antibiotics Now pyuria once again. Will see what the culture shows. (7) HTN (hypertension): Qualifiers: Hypertension type: essential hypertension Qualified Code(s): I10 - Essential (primary) hypertension Code(s): I10 - Essential (primary) hypertension Status: Chronic Assessment and Plan: appears stable follow trend of hemodynamics (8) Diabetes: Qualifiers: Diabetes mellitus type: type 2 Diabetes mellitus shelter insulin use: with exterminator termite use Diabetes mellitus complication status: with neurologic complications Diabetes mellitus complication detail: with autonomic neuropathy Qualified Code(s): E11.43 - Type 2 diabetes mellitus with diabetic autonomic (poly)neuropathy; Z79.4 - long-term (current) use of insulin Code(s):
--- NOTE | 2020-12-15 14:04 | PM.IMPN ---
Progress Note: A&P Assessment and Plan (1) Altered mental status: Qualifiers: Altered mental status type: unspecified Qualified Code(s): R41.82 - Altered mental status, unspecified Code(s): R41.82 - Altered mental status, unspecified Status: Acute Assessment and Plan: Patient was AOx4 by admitting provider. Sp CT scan and MRi scan. Pts mental status changes related to the UTI and/or colitis or COVID encephalopathy and/or uremia and/or Parkinson. Neurology consulted. Responsive is improving slowly. (2) Generalized weakness: Code(s): R53.1 - Weakness Status: Acute Assessment and Plan: Patient with diffuse weakness. Brain MRI also showing no acute process. Echo EF 55-60% and diastolic dysfunction grade II. Continue PT/OT. (3) Chronic renal failure, stage 3 (moderate): Code(s): N18.30 - Chronic kidney disease, stage 3 unspecified Status: Acute Assessment and Plan: Creatinine earlier this year ranging mostly from 3.1-3.7. Creatinine Cr 2.9 and BUN 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 Renal US showing no acute findings. Nephrology rounding. Pt had 24 hour urinary creat collected while in hospital. Encourage oral hydration (4) COVID-19: Code(s): U07.1 - COVID-19 Status: Resolved Assessment and Plan: Patient became symptomatic around 11/19/20 and tested positive 11/24. Patient is vaccinated and he received a 3rd dose earlier in October. Patient is >2 weeks out from symptom onset of COVID. He needed O2 briefly last admission but he was off O2 after an extra dose of Bumex IV given. On admission, CXR showing unchanged opacities in the lateral left lower lung zone and CT Abd showing airspace disease in the bilateral lower lobes which could represent pneumonia including COVID pneumonia. Resolved off oxygen now. (5) Acute UTI: Code(s): N39.0 - Urinary tract infection, site not specified Status: Resolved Assessment and Plan: UA shows UTI UCx growing Klebsiella sensitive to Rocephin which he has completed. (6) Colitis: Code(s): K52.9 - Noninfective gastroenteritis and colitis, unspecified Status: Resolved Assessment and Plan: CT Abd/Pelvis on admission showing distal sigmoid and rectum wall thickening consistent with a distal colitis. No diarrhea. Flagyl added to the Rocephin and he completed a course. No diarrhea (7) HTN (hypertension): Qualifiers: Hypertension type: essential hypertension Qualified Code(s): I10 - Essential (primary) hypertension Code(s): I10 - Essential (primary) hypertension Status: Chronic Assessment and Plan: watch Bp in the hospital. Continue home medications Coreg, Isordil, Hydralazine and Norvasc. (8) Parkinson's disease: Code(s): G20 - Parkinson's disease Status: Chronic Assessment and Plan: pt has history of parkinsons, contributing to slowness and weakness. Continue Sinemet. (9) Renal transplant recipient: Code(s): Z94.0 - Kidney transplant status Status: Chronic Assessment and Plan: Patient has chronic kidney disease and history of renal transplant in 2007. Renal US okay. Continue tacrolimus and Prednisone. As above. see nephrology recommendations. (10) Diabetes: Qualifiers: Diabetes mellitus type: type 2 Diabetes mellitus emt intermediate insulin use: with emt intermediate use Diabetes mellitus complication status: with neurologic complications Diabetes mellitus complication detail: with autonomic neuropathy Qualified Code(s): E11.43 - Type 2 diabetes mellitus with diabetic autonomic (poly)neuropathy; Z79.4 - [facility] (current) use of insulin Code(s): E11.9 - Type 2 diabetes mellitus without complications Status: Acute Assessment and Plan: Pt is on lantus. Continue AccuCh
[2020-12-15] MEDS: CARBIDOPA/LEVODOPA 25/100 MG CR TABLET 2 TABLET PO ×2 (14:26→21:43)
--- NOTE | 2020-12-15 15:23 | PM.EVENT ---
Event Note Event Note Event Note: I talked with transplant doctor. He want to be to check with Dr. Ohara about possibility of parkinsonian dementia. I talk with Dr. Ohara and he is going to re-evaluate the patient tomorrow to make sure that this is not the case. If not we will proceed with PermCath and dialysis on Sunday. I talked with Dr. Triplett about pyuria. She agrees that we should start antibiotics. He was on ceftriaxone before. I will use ampicillin/sulbactam. long discussion with the patient, the , transplant surgeon, and neurologist. Thirty meds were spent in discussions besides clinical activities.
[2020-12-15 18:12] LABS: Glucose Point of Care 231 mg/dl (65-105)
[2020-12-15] MEDS: ATORVASTATIN 40 MG TABLET PO (20:46)
[2020-12-15] MEDS: LATANOPROST 0.005% OP SOLN 2.5 ML BTL 1 DROP EACH EYE (21:37)
[2020-12-15] MEDS: rOPINIRole HCL 0.125 MG TABLET PO (21:38)
[2020-12-15] MEDS: TAMSULOSIN HCL 0.4 MG CAPSULE PO (21:42)
[2020-12-15] MEDS: VENLAFAXINE HCL XR 75 MG CAP.ER.24H PO (21:43)
[2020-12-15] MEDS: INSULIN GLARGINE (*BKC) 100 UNITS/ML 12 UNITS SUB-Q (21:45)
[2020-12-15 22:41] LABS: Glucose Point of Care 275 mg/dl (65-105)
[2020-12-16] VITALS (14 sets, daily range): BP systolic 139–143; BP diastolic 68–72; PULSE 76–89; RESP 18–20; TEMP 36.6–36.8; O2SAT 91–96
[2020-12-16] MEDS: MELATONIN 5 MG TABLET PO (01:39)
[2020-12-16] MEDS: ACETAMINOPHEN 325 MG TABLET 650 MG PO (01:39)
[2020-12-16] MEDS: ALBUTEROL SULFATE NEB 2.5 MG/0.5 ML INH INHALATION ×4 (01:43→22:07)
[2020-12-16 07:28] LABS: Albumin Level 2.8 g/dL (3.5-5.1); Anion Gap 4 mmol/L (8-16); Blood Urea Nitrogen 82 mg/dL (9-20); Calcium 9.1 mg/dL (8.4-10.2); Carbon Dioxide 24 mmol/L (22-30); Chloride 114 mmol/L (98-107); Estimated CRCL calculation 21 ml/min; Estimated Glomerular Filt Rate 22; Glucose 266 mg/dL (65-110); Phosphorus 2.9 mg/dL (2.5-4.5); Potassium 4.8 mmol/L (3.4-5.0); Sodium 142 mmol/L (137-145)
--- NOTE | 2020-12-16 08:10 | P.PNNP_ITS ---
Progress Note: A&P Assessment and Plan (1) Renal transplant recipient: Code(s): Z94.0 - Kidney transplant status Status: Chronic Assessment and Plan: * s/p transplantation ~ 13 years ago * his creatinine has fluctuated to the extremes of 2.4 - 3.6mg/dl in the last 6 months per [facility] Transplant * by last labs at [facility]: - creatinine 2.8mg/dl on 10/14/20 - creatinine 3.6mg/dl on 09/29/20 - creatinine 3.35mg/dl on 08/30/20 - creatinine 2.79mg/dl on 07/28/20 * remains on tacrolimus and prednisone * transplant renal ultrasound okay * nephrotic range proteinuria noted * urine electrolytes are prerenal * urine output is increasing... * 24hr urine collection with GFR 11 - 13cc/min * Creatinine is relatively stable. * etiology of encephalopathy is still unclear. Dr. Ohara is going to see the patient. * Consider dialysis to see if mental status improves. 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 Olivia) * Discussed with covering transplant physician (3) COVID-19: Code(s): U07.1 - COVID-19 Status: Acute Assessment and Plan: * The patient has COVID-19 * off isolation now. * Oxygenation is okay. (4) Altered mental status: Qualifiers: Altered mental status type: unspecified Qualified Code(s): R41.82 - Altered mental status, unspecified Code(s): R41.82 - Altered mental status, unspecified Status: Acute Assessment and Plan: * suspect multifactorial: - infection (colitis + UTI + COVID-19) - uremia(?) -- will mentation improve when BUN improves? * CT/MRI imaging noted * may be a little better today but there is significant waxing and waning that has happened over the last 3 weeks. * Neurology following * See what Neurology says. * Consider dialysis (5) Colitis: Code(s): K52.9 - Noninfective gastroenteritis and colitis, unspecified Status: Resolved Assessment and Plan: * as noted by CT scan * completed course of antibiotics (ceftriaxone and flagyl) (6) Urinary tract infection: Qualifiers: Hematuria presence: without hematuria Urinary tract infection type: acute cystitis Qualified Code(s): N30.00 - Acute cystitis without hematuria Code(s): N39.0 - Urinary tract infection, site not specified Status: Acute Assessment and Plan: * urine culture with Klebsiella * completed course of antibiotics * Now pyuria once again. Will see what the culture shows. 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
--- NOTE | 2020-12-16 08:10 | PM.PNNEP ---
Progress Note: A&P Assessment and Plan (1) Renal transplant recipient: Code(s): Z94.0 - Kidney transplant status Status: Chronic Assessment and Plan: s/p transplantation ~ 13 years ago his creatinine has fluctuated to the extremes of 2.4 - 3.6mg/dl in the last 6 months per [facility] by last labs at [facility]: - creatinine 2.8mg/dl on 10/14/20 - creatinine 3.6mg/dl on 09/29/20 - creatinine 3.35mg/dl on 08/30/20 - creatinine 2.79mg/dl on 07/28/20 remains on tacrolimus and prednisone transplant renal ultrasound okay nephrotic range proteinuria noted urine electrolytes are prerenal urine output is increasing... 24hr urine collection with GFR 11 - 13cc/min Creatinine is relatively stable. etiology of encephalopathy is still unclear. Dr. Ohara is going to see the patient. Consider dialysis to see if mental status improves. 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 Olivia) Discussed with covering transplant physician (3) COVID-19: Code(s): U07.1 - COVID-19 Status: Acute Assessment and Plan: The patient has COVID-19 off isolation now. Oxygenation is okay. (4) Altered mental status: Qualifiers: Altered mental status type: unspecified Qualified Code(s): R41.82 - Altered mental status, unspecified Code(s): R41.82 - Altered mental status, unspecified Status: Acute Assessment and Plan: suspect multifactorial: - infection (colitis + UTI + COVID-19) - uremia(?) -- will mentation improve when BUN improves? CT/MRI imaging noted may be a little better today but there is significant waxing and waning that has happened over the last 3 weeks. Neurology following See what Neurology says. Consider dialysis (5) Colitis: Code(s): K52.9 - Noninfective gastroenteritis and colitis, unspecified Status: Resolved Assessment and Plan: as noted by CT scan completed course of antibiotics (ceftriaxone and flagyl) (6) Urinary tract infection: Qualifiers: Hematuria presence: without hematuria Urinary tract infection type: acute cystitis Qualified Code(s): N30.00 - Acute cystitis without hematuria Code(s): N39.0 - Urinary tract infection, site not specified Status: Acute Assessment and Plan: urine culture with Klebsiella completed course of antibiotics Now pyuria once again. Will see what the culture shows. (7) HTN (hypertension): Qualifiers: Hypertension type: essential hypertension Qualified Code(s): I10 - Essential (primary) hypertension Code(s): I10 - Essential (primary) hypertension Status: Chronic Assessment and Plan: appears stable follow trend of hemodynamics (8) Diabetes: Qualifiers: Diabetes mellitus type: type 2 Diabetes mellitus director long term care insulin use: with [facility] use Diabetes mellitus complication status: with neurologic complications Diabetes mellitus complication detail: with autonomic neuropathy Qualified Code(s): E11.43 - Type 2 diabetes mellitus with diabetic autonomic (poly)neuropathy; Z79.4 - longterm (current) use of insulin Code(s): E11.9 - Type 2 diabetes mellitus without complications Status: Acute Assessment and Plan: On Accu-Cheks and sliding-scale insulin. Subjective Date/time seen: 12/16/20 08:10 Interval history: He awake. He recognizes me. He knows he is in a hospital but can not name which 1. He has abdominal discomfort. He showed me with his hands and it is diffuse. No suprapubic tenderness. He has a Davidson catheter in Exam Narrative: Connor
[2020-12-16 08:36] LABS: Glucose Point of Care 234 mg/dl (65-105)
[2020-12-16] MEDS: hydrALAZINE HCL 50 MG TABLET 100 MG PO ×3 (08:54→18:32)
[2020-12-16] MEDS: BRIMONIDINE TARTRATE 0.2% OP SOLN 5 ML BTL 1 DROP EACH EYE ×3 (08:54→18:33)
[2020-12-16] MEDS: SODIUM BICARBONATE TAB 650 MG TABLET 1300 MG PO ×2 (08:54→18:32)
[2020-12-16] MEDS: ASPIRIN 81 MG ENTERIC TABLET PO (08:54)
[2020-12-16] MEDS: predniSONE 5 MG TABLET PO (08:55)
[2020-12-16] MEDS: APIXABAN 2.5 MG TABLET PO ×2 (08:55→18:33)
[2020-12-16] MEDS: ISOSORBIDE DINITRATE 20 MG TABLET PO ×3 (08:55→18:33)
[2020-12-16] MEDS: PANTOPRAZOLE 40 MG TABLET PO ×2 (08:55→21:56)
[2020-12-16] MEDS: carvediloL 12.5 MG TABLET PO ×2 (08:55→18:35)
[2020-12-16] MEDS: allopurinoL 300 MG TABLET PO (08:56)
[2020-12-16] MEDS: amLODIPine BESYLATE 2.5 MG TABLET PO (08:56)
[2020-12-16] MEDS: CARBIDOPA/LEVODOPA 25/250 MG TABLET 1 TABLET PO ×2 (08:56→18:33)
[2020-12-16] MEDS: AMPICILLIN SULB 1.5 GM/NS 50ML 1.5 GM/50 ML VIAL IVPB (08:58)
[2020-12-16] MEDS: INSULIN ASPART (*BKC) 100 UNITS/ML SUB-Q ×6 (09:35→18:34)
--- NOTE | 2020-12-16 11:25 | WPDNEUROPN ---
Progress Note: A&P Additional Plan considering his ongoing diagnosis question has been raised regarding his dementia [place] related to the Parkinson's disease or errors ongoing chronic renal failure. He has a fluctuating level of consciousness otherwise is able to follow the instructions very well and also aware of the surrounding I do not think his mental status at this stage is related to the Parkinson disease and as requested by the Nephrology he should be able to be transferred for the further care Subjective Date/time seen: 12/16/20 11:26 74 years old right-handed male has been admitted to [facility] for the complaints of generalized weakness and recurrent falls in addition to the complaints of increasing weakness, controlled diarrhea and projectile vomiting patient does have ongoing history of 1. Congestive heart failure 2. Diabetes mellitus with gastroparesis 3. Gout 4. Trance catheter aortic valve replacement 5. Hypertension 6. Parkinson disease for 7 peripheral vascular disease 8. Seizure disorder with history of [place] subdural hematoma. Review of Systems Review of Systems: All systems reviewed & are unremarkable except as noted in HPI and below Exam Narrative: On follow-up visit today he is awake alert but intermittently doses of . He does follow the verbal commands he was able to name President and President trauma he knew that he was in the hospital but again was intermittently dosing of throughout the examination he was not noted to have any resting tremors of the upper or lower extremities his head was normocephalic with no cranial bruit ear nose throat examination was normal neck was supple with no meningeal signs no cervical bruits no thyromegaly no lymphadenopathy heart regular with no murmur lungs clear to auscultation abdomen is soft with no organ neurological he was awake alert but intermittently dosing of when he conversed his speech was not dysphasic no dysarthric but level of alertness did not last more than 1 minutes to follow the instruction whenever he was aroused he did follow the instruction accordingly pupils round regular feels the vision were full extraocular movements full with no nystagmus face was symmetrical tongue was midline motor examination revealed him to have ability to move both upper and lower extremities on passive movement there was no cogwheeling reflexes were sluggish but symmetrical plantars were downgoing sensory examination was unreliable he responded to pinprick or over Objective Data Vital Signs Vital Signs: Vital Signs - 24 hr 12/15/20 14:00 12/15/20 15:10 12/15/20 15:17 Temperature 35.9 C L Pulse Rate 83 86 85 Respiratory Rate 14 18 18 Blood Pressure 113/81 Pulse Oximetry 92 12/15/20 18:11 12/15/20 19:50 12/15/20 20:40 Temperature Pulse Rate 74 88 88 Respiratory Rate 20 24 H Blood Pressure Pulse Oximetry 96 93 12/15/20 20:50 12/15/20 22:00 12/16/20 01:45 Temperature 36.7 C Pulse Rate 87 88 83 Respiratory Rate 24 H 20 20 Blood Pressure 134/65 Pulse Oximetry 93 96 12/16/20 06:00 12/16/20 08:40 12/16/20 08:48 Temperature 36.8 C Pulse Rate 85 82 85 Respiratory Rate 20 20 20 Blood Pressure 140/72 Pulse Oximetry 92 94 12/16/20 08:55 Temperature Pulse Rate 76 Respiratory Rate Blood Pressure Pulse Oximetry Intake/Output Intake/Output: Intake & Output 12/13/20 12/14/20 12/15/20 12/16/20 23:59 23:59 23:59 23:59 Intake Total 580 2050 390 280 Output Total 1200 1150 1050 300 Balance -620 900 -660 -20 Meds/Results Medications: Active Medications Generic Name Dose Route Start Last Admin Trade Name Freq PRN Reason Stop Dose Admin Acetaminophen 650 mg 12/01/20 12:01 12/16/20 01:39 Acetaminophen 325 Mg Tablet PO 650 mg Q6H PRN Administration Mild Pain (1-3) or Fever Albuterol 2 puff 12/06/20 13:54 Albuterol Sulfate (*Sp) Inhaler INHALATION Q6HRT PRN Shortness Of Breath Albuterol 2.5
[2020-12-16 11:53] LABS: Glucose Point of Care 242 mg/dl (65-105)
[2020-12-16] MEDS: CARBIDOPA/LEVODOPA 25/100 MG CR TABLET 2 TABLET PO ×2 (12:28→22:02)
--- NOTE | 2020-12-16 13:01 | PCOTNOTE ---
Attempted to see patient this am. Pt agreed to participate, however patient does not respond or follow directions. Pt kept eyes closed and rolled to side.
--- NOTE | 2020-12-16 14:01 | PM.DS ---
DS: Admitting Diagnosis Discharge Date 12/16/20 Admitting Diagnosis Altered Mental Status DS: Discharge Diagnosis Discharge Diagnosis (1) Altered mental status: Qualifiers: Altered mental status type: unspecified Qualified Code(s): R41.82 - Altered mental status, unspecified Code(s): R41.82 - Altered mental status, unspecified Status: Acute Assessment and Plan: Patient was AOx4 by admitting provider. TSH noted but FT4 normal. B12/folate normal. CT brain 11/28 showing no acute changes. Patient with diffuse weakness and was nonverbal on 11/[address] showing no acute changes. MRI brain 12/01 also showing no acute findings. He remained on ASA and Eliquis. Suspect mental status changes related to the UTI and/or colitis with slow recovery of mental status (as explained by ); consider also from COVID and/or uremia and/or Parkinson. Neurology consulted and did not feel this was Parkinson's related and did not recommend any changes. Mental status improved. (2) Generalized weakness: Code(s): R53.1 - Weakness Status: Acute Assessment and Plan: Patient with diffuse weakness at last admission. Normally walks with walker or cane at home and was recently in therapy; he does require gait belt at times for balance issues. Workup last admission showing carotid stenosis but CT brain negative for acute process. He worked with PT and OT and was minimum assistance x1 at last discharge. Patient returned due to increasing weakness felt related to COVID and now UTI. Also has colitis which could be contributing. CT brain again showing no acute process. MBS results noted and appropriate diet has been started. Brain MRI also showing no acute process. Echo EF 55-60% and diastolic dysfunction grade II. He worked with PT/OT. (3) Chronic renal failure, stage 3 (moderate): Code(s): N18.30 - Chronic kidney disease, stage 3 unspecified Status: Acute Assessment and Plan: Creatinine earlier this year ranging mostly from 3.1-3.7. Creatinine Cr 3.3 and BUN 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 Jd 24 with FENa 0.4% probably related to dehydration from poor oral intake. Renal US showing no acute findings. He has persistent metabolic acidosis with serum bicarb as low as 13 so oral bicarb advanced with improvement; serum bicarb normal now. Cr climbed to 3.6 but stable now at 2.8 at discharge. 24hr urine collection with GFR 11 - 13cc/min. BUN still elevated but improved to 82 today. Higher BUN partially related to the steroids (last dose off Decadron on 12/06). Nephrology followed along and appreciate their help. Discussion about dilaysis was undertaken but plan to hold off for now. Family know that the patietn is close to requiring HD. (4) COVID-19: Code(s): U07.1 - COVID-19 Status: Resolved Assessment and Plan: Patient became symptomatic around 11/19/20 and tested positive for COVID on 11/24. Patient is vaccinated and he received a 3rd dose earlier in October. He needed O2 briefly last admission but he was off O2 after an extra dose of Bumex IV given. On admission, CXR showing unchanged opacities in the lateral left lower lung zone and CT Abd showing airspace disease in the bilateral lower lobes which could represent pneumonia including COVID pneumonia. [place] pulmonary infarct unlikely. Steroid should be considered if SpO2 <= 94 and patient met this criteria and CXR slightly worse so it was decided to proceed with Decadron. Unclear if COVID was contributng to his mental status changes. He was on Decadron but BUN worsened and SpO2 improved so decided to stop Decadron after 6 days. COVID has resolved. (5) Acute UTI: Code(s): N39.0 - Urinary tract infection, site not specified Status: Resolved Assessment and Plan: UA was suspicious for UTI. CT Abd/Pelvis showing diffu
[2020-12-16 17:05] LABS: Glucose Point of Care 265 mg/dl (65-105)
[2020-12-16] MEDS: polyethylene glycoL 3350 17 GM POWD.PACK PO (18:32)
[2020-12-16] MEDS: INSULIN GLARGINE (*BKC) 100 UNITS/ML 18 UNITS SUB-Q (21:54)
[2020-12-16] MEDS: LATANOPROST 0.005% OP SOLN 2.5 ML BTL 1 DROP EACH EYE (21:56)
[2020-12-16] MEDS: rOPINIRole HCL 0.125 MG TABLET PO (21:56)
[2020-12-16] MEDS: VENLAFAXINE HCL XR 75 MG CAP.ER.24H PO (22:00)
[2020-12-16] MEDS: TAMSULOSIN HCL 0.4 MG CAPSULE PO (22:01)
[2020-12-16] MEDS: ATORVASTATIN 40 MG TABLET PO (22:02)
[2020-12-16 22:23] LABS: Glucose Point of Care 239 mg/dl (65-105)
--- NOTE | 2021-01-06 12:41 | WPDNEURCNPN ---
Consult date: 01/06/21 Time Seen: 12:42 HPI: patient not seen [facility] Past Medical History Medical History Afib Anemia BPH (benign prostatic hyperplasia) CHF (congestive heart failure), NYHA class I . Left ventricular systolic function is preserved, estimated at 50-55%. 2. Left ventricular chamber dimension is normal. 3. There is moderately increased left ventricular wall thickness. 4. The left ventricular diastolic function is abnormal. 5. E/e' 20 is elevated. 6. Right ventricular systolic function is reduced based on a TAPSE 1.0 cm. 7. Left atrial chamber dimension is moderately enlarged. 8. Right atrial chamber dimension is mildly enlarged. 9. There is severe aortic valve sclerosis. 10. There is severe aortic valve stenosis with a peak velocity of 407 cm/s, mean gradient of 40 mmHg, and aortic valve area of 0.8 cm2. 11. There is mild aortic valve regurgitation. 12. The mitral valve has moderately calcified annulus. 13. There is mild tricuspid valve regurgitation. 14. Moderate pulmonary hypertension, estimated pulmonary arterial systolic pressure is 52 mmHg. Chronic renal failure, stage 3 (moderate) Coronary artery disease Depression Diabetes Dry mouth Gastroparesis Stage 4 Glaucoma Gout History of [place] (myocardial infarction) 2007 with bypass February 2008 History of transcatheter aortic valve replacement (TAVR) 06/01/2020 HLD (hyperlipidemia) HTN (hypertension) Parkinson's disease Peripheral vascular disease Seizures Trauma induced following fall Subdural hematoma From fall on 24 December 2018 Surgical History Surgical History History of biopsy rt shoulder and lt palm History of kidney transplant 2007 History of thoracentesis Hx of CABG 2007, followed by lengthy hospital stay and a second surgery x4 Renal transplant recipient 2007 Family History Family History Father Family history of malignant neoplasm of stomach Mother Diabetes mellitus Grandparent Family history of cardiovascular disease Diabetes mellitus Sibling Crohn's disease Brain aneurysm Social History Social History Social History: The patient lives with his . 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 The patient tells me that he has 3 children. The is the durable power erisa attorney for healthcare the patient is a full code. Patient is a lifelong nonsmoker does not use any marijuana alcohol or illicit drugs. Smoking status: Never smoker Alcohol intake: former Drinks per week: 0 Substance use: never Substance use type: does not use Gender identity (if verbalized by the patient): Male Spiritual care concerns: No Meds Home Medications and Allergies Home Medications Medication Instructions Recorded Confirmed Type allopurinol 300 mg PO DAILY 02/10/19 11/28/20 History atorvastatin 40 mg PO HS 02/10/19 11/28/20 History calcitriol 0.5 mcg PO MOWEFR 02/10/19 11/28/20 History carbidopa-levodopa 25 - 250 tablet PO BID 02/10/19 11/28/20 History carbidopa-levodopa 50 - 200 tablet PO BID 02/10/19 11/28/20 History docusate sodium [Colace] 100 mg PO BID 02/10/19 11/28/20 History fluticasone propionate 2 spray INTRANASAL DAILY PRN 02/10/19 11/28/20 History melatonin 5 mg PO HS PRN 02/10/19 11/28/20 History tamsulosin 0.4 mg PO HS 02/10/19 11/28/20 History ropinirole 0.25 mg tablet 0.125 mg PO HS tablet 08/19/19 11/28/20 History apixaban 2.5 mg tablet 2.5 mg PO BID 10/01/19 11/28/20 History polyethylene glycol 3350 17 17 gm PO BID PRN gm 10/01/19 11/28/20 History gram/dose oral powder sennosides 8.6 mg tablet 8.6 mg PO DAILY PRN tablet 10/01/19 11/28/20 History tacrolimus 1 mg capsule, 1 mg PO Q12H cap 12/17/19 11/28/20 History immediate-release venlafaxine 75 mg PO HS
== END 2020-12-16 23:05 | DRG 177 ==
LOC: ANHED 03:08 → ANH3MEDSUR 05:48
PROVIDERS: Family Medicine; Internal Medicine; Internal Medicine Nephrology; Physician Assistant; Admitting Provider Internal Medicine; Emergency Provider Emergency Medicine; PCP Family Medicine; Visit Provider Internal Medicine
DX: U07.1 COVID-19 (principal); G93.41 Metabolic encephalopathy; Z94.0 Kidney transplant status; I13.0 Hypertensive heart and chronic kidney disease with heart failure and stage 1 through stage 4 chronic kidney disease, or unspecified chronic kidney disease; I42.9 Cardiomyopathy, unspecified; N17.9 Acute kidney failure, unspecified; N30.00 Acute cystitis without hematuria; T86.19 Other complication of kidney transplant; N18.4 Chronic kidney disease, stage 4 (severe); N13.8 Other obstructive and reflux uropathy; K52.9 Noninfective gastroenteritis and colitis, unspecified; R53.1 Weakness; N18.30 Chronic kidney disease, stage 3 unspecified; I50.9 Heart failure, unspecified; F32.9 Major depressive disorder, single episode, unspecified; E11.22 Type 2 diabetes mellitus with diabetic chronic kidney disease; E11.43 Type 2 diabetes mellitus with diabetic autonomic (poly)neuropathy; K31.84 Gastroparesis; E11.39 Type 2 diabetes mellitus with other diabetic ophthalmic complication; H42 Glaucoma in diseases classified elsewhere; M10.9 Gout, unspecified; E78.5 Hyperlipidemia, unspecified; G20 Parkinson's disease; E11.51 Type 2 diabetes mellitus with diabetic peripheral angiopathy without gangrene; Z87.820 Personal history of traumatic brain injury; Z95.1 Presence of aortocoronary bypass graft; N40.1 Benign prostatic hyperplasia with lower urinary tract symptoms; N39.498 Other specified urinary incontinence; I25.10 Atherosclerotic heart disease of native coronary artery without angina pectoris; I25.2 Old myocardial infarction; Z95.2 Presence of prosthetic heart valve; Z79.4 Long term (current) use of insulin; I48.91 Unspecified atrial fibrillation; H91.90 Unspecified hearing loss, unspecified ear; Z79.82 Long term (current) use of aspirin; I27.20 Pulmonary hypertension, unspecified; E86.0 Dehydration; D50.9 Iron deficiency anemia, unspecified; Z79.01 Long term (current) use of anticoagulants; Y83.0 Surgical operation with transplant of whole organ as the cause of abnormal reaction of the patient, or of later complication, without mention of misadventure at the time of the procedure; Y92.230 Patient room in hospital as the place of occurrence of the external cause; B96.1 Klebsiella pneumoniae [K. pneumoniae] as the cause of diseases classified elsewhere; G40.909 Epilepsy, unspecified, not intractable, without status epilepticus
CPT/HCPCS: 36415; 51702; 70450; 70551; 71045; 72100; 72125; 74019; 74176; 76775; 80053; 80069; 80197; 81001; 81050; 82550; 82570; 82575; 82607; 82728; 82746; 82948; 83540; 83550; 83605; 83615; 83735; 83880; 84100; 84156; 84300; 85025; 85027; 85055; 85610; 85730; 85999; 86140; 86413; 86769; 87040; 87045; 87077; 87086; 87088; 87186; 87427; 92611; 93306; 94640; 96361; 96365; 96367; 97110; 97162; 97165; 97166; 97530; 97535; 99285; A9270; G0378; J0131; J0295; J0696; J1815; J7030; J7512; J8540

== ENCOUNTER 2021-02-01 05:56 | Inpatient (IN) | payer MEDICARE, BC, SELFPAY ==
[2021-02-01] VITALS (50 sets, daily range): BP systolic 129–170; BP diastolic 64–87; PULSE 61–94; RESP 12–28; TEMP 32.8–36.9; O2SAT 95–100
--- NOTE | ~2021-02-01 | CT_ITS ---
EXAMINATION: CT brain wo con DATE: 02/01/2021 07:53 INDICATION: Unresponsive. Altered mental status. TECHNIQUE: Computed tomography (CT) of the head was performed without intravenous contrast. The mA wa s adjusted according to patient size. Iterative reconstruction technique was employed. The dose-lengt h product was 1210.67 mGy-cm. COMPARISON: Head CT 11/29/2020, brain MRI 12/01/2020 FINDINGS: There is a small old infarct in right cerebellum. There are scattered areas of low attenuat ion in the cerebral white matter, which is within normal limits for the patient's age. There is no in tracranial hemorrhage, acute infarction, or abnormal intracranial mass lesion. The ventricles are nor mal in size. There are likely changes of ocular lens replacement surgeries. There is mucosal thickeni ng in the paranasal sinuses. The mastoid air cells are normal. IMPRESSION: 1. Small old infarct in right cerebellum. Reviewed, dictated and finalized at location A. STANT SOFTBALL COACH
--- NOTE | ~2021-02-01 | US_ITS ---
EXAMINATION: US renal BI DATE: 02/05/2021 09:33 INDICATION: Hydronephrosis. TECHNIQUE: Multiple ultrasound grayscale images of the kidneys were obtained. COMPARISON: CT abdomen and pelvis 12/28/2020, ultrasound 01/30/2021 FINDINGS: The right kidney measures 7.0 x 4.1 x 4.5 cm. The [place] right kidney demonstrates increased parenchy mal echogenicity, consistent with nephropathy. The [place] left kidney is not well visualized. The lef t-sided transplant kidney measures 11.7 x 6.4 x 6.6 cm. There is mild transplant kidney hydronephrosi s. The average of 3 arterial resistive indices in the transplant kidney was 0.8, which is borderline normal. The transplant kidney artery and vein are patent. Peak systolic velocity of the transplant ki dney is 110 cm/s, which is normal. The bladder is decompressed by a Davidson catheter. IMPRESSION: 1. Mild transplant kidney hydronephrosis, stable from 02/01/2021. Normal transplant kidney size. 2. Moderate atrophy of right [place] kidney. Left [place] kidney not well visualized. Reviewed, dictated and finalized at location A. ILL CLERK IMPRESSION: 1. Mild transplant kidney hydronephrosis, stable from 02/01/2021. Normal transp lant kidney size. 2. Moderate atrophy of right [place] kidney. Left [place] kidney not well visuali zed.
--- NOTE | ~2021-02-01 | US_ITS ---
EXAMINATION: US renal BI EXAM DATE: 02/01/2021 16:19 INDICATION: Worsening chronic renal failure stage 3 . Transplant of left kidney. TECHNIQUE: Multiple grayscale and Doppler images of the kidneys were obtained (by a technologist who performed the scan) and subsequently reviewed. Comparison is made to prior examination from 12/02/2020. FINDINGS: Right kidney (belkofski): There is normal contour and severely increased echogenicity. It measures 7.1 x 4.1 x 3.8 centimeters. There are no focal renal lesions identified. There is no hydronephrosis. Left transplant kidney: There is normal contour and echogenicity. It measures 10.0 x 4.8 x 6.7 centi meters. There are no focal renal lesions identified. Mild to moderate hydronephrosis. Low resistance Doppler waveforms with normal velocities confirmed. Bladder wall is diffusely thickened at 8 mm 4 mild to moderate amount of distention, and has trabecul ar wall, could indicate chronic cystitis. Davidson catheter is in place. IMPRESSION: 1. Mild to moderate hydronephrosis of transplant kidney. 2. Severely echogenic, moderately atrophic right kidney. 3. Mildly distended bladder with wall thickening, trabeculation consistent with chronic cystitis. Reviewed, dictated and finalized at location A. ING MACHINE SETTER IMPRESSION: 1. Mild to moderate hydronephrosis of transplant kidney. 2. Severely echogenic, moderately atrophic right kidney. 3. Mildly distended bladder with wall thickening, trabeculation consistent wit h chronic cystitis.
--- NOTE | ~2021-02-01 | XR_ITS ---
EXAMINATION: XR humerus LT DATE: 02/05/2021 13:22 INDICATION: Left upper arm pain. TECHNIQUE: 2 views of left humerus were obtained. COMPARISON: None. FINDINGS: Bone alignment is normal. No fracture. There is mild osteoarthritis of glenohumeral joint a nd acromioclavicular joint. There is calcific tendinitis of the rotator cuff. IMPRESSION: 1. Mild polyarticular osteoarthritis. 2. Calcific tendinitis of the rotator cuff. Reviewed, dictated and finalized at location A. TACKER
--- NOTE | ~2021-02-01 | XR_ITS ---
EXAMINATION: XR chest 1V portable DATE: 02/02/2021 05:50 INDICATION: Sepsis. TECHNIQUE: A single frontal view of the chest was obtained. COMPARISON: Chest single view 02/01/2021 FINDINGS: There are interstitial opacities and mild airspace opacities in all lung zones bilaterally. No pleural effusion or pneumothorax. There is prominent extrapleural fat in left lateral costophreni c angle. Cardiomegaly is noted. There are changes of aortic valve replacement. Median sternotomy wire s are noted. IMPRESSION: 1. Diffuse lung disease with mild improvement, consistent with pulmonary edema versus pneumonia. 2. Cardiomegaly. Reviewed, dictated and finalized at location A. OTIONAL DEMONSTRATOR
--- NOTE | ~2021-02-01 | XR_ITS ---
EXAMINATION: XR chest port-a-cath/central DATE: 02/09/2021 16:05 INDICATION: Central line placement TECHNIQUE: frontal view of the chest was obtained. COMPARISON: Chest radiograph dated 02/02/2021 FINDINGS: Right internal jugular central venous catheter with distal tip near the superior cavoatrial junction. Median sternotomy wires and aortic valve repair. Mild increased interstitial pattern with perihilar and lower lung predominance. Persistent opacities at the left lower lung zone along side the left heart border and at the costophrenic angle to at leas t in part to prominent pericardial fat pads is seen on CT dated 11/28/2020. No pneumothorax or definiti ve pleural effusion. Heart size is normal. IMPRESSION: 1. Right internal jugular central venous catheter tip at the superior cavoatrial junction. 2. Increased interstitial pattern with perihilar and lower lung predominance and favor mild pulmonary edema over pneumonia. 3. Opacities at the left lower lung zone due at least in part to a prominent pericardial fat pad alth ough cannot exclude associated atelectasis or less likely pneumonia. Reviewed, dictated and finalized at location A. RITY GUARD DISPATCHER IMPRESSION: 1. Right internal jugular central venous catheter tip at the superior cavoatria l junction. 2. Increased interstitial pattern with perihilar and lower lung predominance an d favor mild pulmonary edema over pneumonia. 3. Opacities at the left lower lung zone due at least in part to a prominent pe ricardial fat pad although cannot exclude associated atelectasis or less likely pneumonia.
--- NOTE | ~2021-02-01 | US_ITS ---
EXAMINATION: US renal BI DATE: 02/07/2021 18:24 INDICATION: Hydronephrosis transplant kidney. TECHNIQUE: Multiple ultrasound grayscale images of the kidneys were obtained. COMPARISON: None. FINDINGS: The right kidney measures 7.3 x 3.9 x 3.5 cm. The left kidney measures 7.4 x 3.7 x 3.9 cm. The kidney s demonstrate prominent increased echogenicity consistent with medical renal disease. 6 mm anechoic r ight renal cyst. There is no hydronephrosis in either upper sioux kidney. The left pelvic transplant kidne y measures 10.9 x 6.2 x 5.8 cm. There is mild hydronephrosis in the left pelvic transplant kidney whi ch appears decreased since the prior studies. No stones identified. The bladder is decompressed aroun d a Davidson catheter which limits evaluation. IMPRESSION: 1. Interval decrease in mild hydronephrosis in the left pelvic transplant kidney. 2. Atrophic and markedly echogenic bilateral upper sioux kidneys consistent with chronic renal disease. Reviewed, dictated and finalized at location A. RAISER IMPRESSION: 1. Interval decrease in mild hydronephrosis in the left pelvic transplant kidn ey. 2. Atrophic and markedly echogenic bilateral upper sioux kidneys consistent with chr onic renal disease.
--- NOTE | ~2021-02-01 | XR_ITS ---
EXAMINATION: XR chest 1V portable DATE: 02/01/2021 06:25 INDICATION: Transient alteration of awareness. TECHNIQUE: A single frontal view of the chest was obtained. COMPARISON: Chest single view 12/14/2020, CT abdomen and pelvis 12/28/2020 FINDINGS: There are airspace and interstitial opacities throughout the lungs bilaterally. There is pr ominent extrapleural fat in left lateral costophrenic angle. No pleural effusion or pneumothorax. Car diomegaly is noted. There are changes of aortic valve replacement. Median sternotomy wires are noted. IMPRESSION: 1. Diffuse lung disease, improved from 12/14/2020, consistent with pulmonary edema versus pneumonia. 2. Cardiomegaly. Reviewed, dictated and finalized at location A. COM ENGINEER IMPRESSION: 1. Diffuse lung disease, improved from 12/14/2020, consistent with pulmonary dev ma versus pneumonia. 2. Cardiomegaly.
--- NOTE | 2021-02-01 06:12 | ECG_ITS ---
Measurements Intervals [place] Rate: 61 P: 59 DE: 214 QRS: -50 QRSD: 153 T: 61 QT: 515 QTc: 522 Interpretive Statements SINUS RHYTHM BORDERLINE AV CONDUCTION DELAY RIGHT BUNDLE BRANCH BLOCK LEFT ANTERIOR FASCICULAR BLOCK BASELINE ARTIFACT- AVR, AVL, AVF ABNORMAL ECG Electronically Signed On 02-01-2021 7:43:30 BOARD CATCHER by Lokesh Smith D.O.
--- NOTE | 2021-02-01 06:23 | ED.GENADULT ---
HPI - General Adult General Chief complaint: Recheck/Abnormal Lab/Rx <Rahul Mei MD - Last Filed: 02/01/21 07:03> Stated complaint: low blood sugar <Rahul Mei MD - Last Filed: 02/01/21 07:03> Time Seen by Provider: 02/01/21 06:05 <Rahul Mei MD - Last Filed: 02/01/21 07:03> History of Present Illness HPI narrative: Patient is a 75-year-old male who presents ER with altered mental status. At his senior care there is a bed check this morning he was found to be hypoglycemic with a blood sugar in the 30s. EMS administered D10 with ample response in patient's blood sugar but poor response in his mentation. Thus they transported him to the ER. No recent history provided of any illness or issue. After arrival patient found to be hypothermic with a temperature of 90.4 ?F. <Rahul Mei MD - Last Filed: 02/01/21 07:03> Related Data Home medications: Home Medications Medication Instructions Recorded Confirmed allopurinol 300 mg PO DAILY 02/10/19 02/01/21 atorvastatin 40 mg PO HS 02/10/19 02/01/21 calcitriol 0.5 mcg PO MOWEFR 02/10/19 02/01/21 carbidopa-levodopa 25 - 250 tablet PO BID 02/10/19 02/01/21 carbidopa-levodopa 50 - 200 tablet PO BID 02/10/19 02/01/21 docusate sodium [Colace] 100 mg PO BID 02/10/19 02/01/21 fluticasone propionate 2 spray INTRANASAL DAILY PRN 02/10/19 02/01/21 melatonin 5 mg PO HS PRN 02/10/19 02/01/21 tamsulosin 0.4 mg PO HS 02/10/19 02/01/21 ropinirole 0.25 mg tablet 0.125 mg PO HS tablet 08/19/19 02/01/21 apixaban 2.5 mg tablet 2.5 mg PO BID 10/01/19 02/01/21 polyethylene glycol 3350 17 17 gm PO BID PRN gm 10/01/19 02/01/21 gram/dose oral powder sennosides 8.6 mg tablet 8.6 mg PO DAILY PRN tablet 10/01/19 02/01/21 tacrolimus 1 mg capsule, 1 mg PO Q12H cap 12/17/19 02/01/21 immediate-release venlafaxine 75 mg PO HS 05/17/20 02/01/21 Motegrity 2 mg PO DAILY 06/24/20 02/01/21 brimonidine 1 drp EACH EYE TID 06/24/20 02/01/21 isosorbide dinitrate 20 mg PO TID 06/24/20 02/01/21 prednisone 5 mg PO DAILY 06/24/20 02/01/21 ferrous sulfate 325 mg (65 mg 325 mg PO DAILY 07/05/20 02/01/21 iron) tablet omeprazole 40 mg capsule,delayed 40 mg PO DAILY cap 07/05/20 02/01/21 release carvedilol 12.5 mg tablet 12.5 mg PO Q12H 11/05/20 02/01/21 Triphrocaps 1 cap PO DAILY 11/24/20 02/01/21 pyridoxine (vitamin B6) 100 mg PO DAILY 11/24/20 02/01/21 artificial tears solution 1 drp OPHTHALMIC (EYE) TID PRN 11/28/20 02/01/21 aspirin 81 mg PO DAILY 11/28/20 02/01/21 latanoprost 1 drp HS 11/28/20 02/01/21 bumetanide 1 mg PO DAILY 02/01/21 02/01/21 insulin aspart U-100 [Novolog 8 unit SUBCUT TIDWM 02/01/21 02/01/21 U-100 Insulin aspart] insulin glargine [Lantus U-100 20 unit SUBCUT HS 02/01/21 02/01/21 Insulin] menthol [Biofreeze (menthol)] 1 ea TOPICAL TID PRN 02/01/21 02/01/21 <Rahul Mei MD - Last Filed: 02/01/21 07:03> Allergies/adverse reactions: Allergies Allergy/AdvReac Type Severity Reaction Status Date / Time trimethobenzamide Allergy Severe Loss of Verified 02/01/21 06:52 Consciousness fish oil Allergy Mild Rash Verified 02/01/21 06:52 diphenhydramine Allergy Unknown aggi Verified 02/01/21 06:52 levofloxacin Allergy Unknown Hives Verified 02/01/21 06:52 NSAIDS (Non-Steroidal Allergy Unknown renal Verified 02/01/21 06:52 Anti-Inflamma insuff metoclopramide AdvReac Severe Other Verified 02/01/21 06:52 ondansetron AdvReac Severe Other Verified 02/01/21 06:52 <Rahul Mei MD - Last Filed: 02/01/21 07:03> Review of Systems Review of Systems: ROS unobtainable: Yes unobtainable due to medical condition <Rahul Mei MD - Last Filed: 02/01/21 07:03> [facility] Past Medical History Medical History: Medical History (Updated 02/01/21 @ 15:59 by Kiley Orosco MD) Afib Anemia BPH (benign prostatic hyperplasia) CHF (congestive heart failure), NYHA class I Echo from 12/02/2020 read as the following
[2021-02-01 06:26] LABS: Glucose Point of Care 93 mg/dl (65-105)
[2021-02-01 07:05] LABS: Basophils Percent Auto 0.3 % (0.2-1.2); Eosinophils Percent Auto 0.5 % (0-4.4); Hematocrit 29.9 % (42.0-52.0); Hemoglobin 9.2 g/dL (14.0-18.0); Immature Granulocyte Absolute 0.06 K/mm3 (0.00-0.031); Lymphocytes Absolute Auto 2.39 K/mm3 (0.9-3.2); Lymphocytes Percent Auto 40.2 % (18.3-44.2); Mean Corpuscular HGB Conc 30.8 g/dl (32-36); Mean Corpuscular Hemoglobin 29.8 pg (26-34); Mean Corpuscular Volume 96.8 fl (80-100); Mean Platelet Volume 9.6 fl (7.4-10.4); Monocytes Absolute Auto 0.5 K/mm3 (0.1-0.6); Monocytes Percent Auto 8.1 % (2.6-8.5); Neutrophils Percent Auto 49.9 % (45.5-73.1); Platelet Count Result 115 k/mm3 (150-375); Red Blood Count 3.09 M/mm3 (4.6-6.20); Red Cell Distribution Width 17.7 % (11.5-14.5)
[2021-02-01 07:10] LABS: Lactic Acid Reflex 0.8 mmol/L (0.7-2.1)
[2021-02-01 07:11] LABS: Albumin Level 2.8 g/dL (3.5-5.1); Alkaline Phosphatase 80 U/L (38-126); Anion Gap 5 mmol/L (8-16); Aspartate Amino Transferase 28 U/L (17-59); Bilirubin,Total 0.5 mg/dL (0.2-1.3); Blood Urea Nitrogen 68 mg/dL (9-20); Calcium 8.1 mg/dL (8.4-10.2); Carbon Dioxide 26 mmol/L (22-30); Chloride 107 mmol/L (98-107); Estimated CRCL calculation 20 ml/min; Estimated Glomerular Filt Rate 16; Glucose 67 mg/dL (65-110); Lipase 18 U/L (23-300); Sodium 138 mmol/L (137-145)
[2021-02-01] MEDS: DEXTROSE 50% 25 GM/50 ML SYRINGE IV PUSH (07:13)
[2021-02-01 07:15] LABS: Glucose Point of Care 51 mg/dl (65-105)
[2021-02-01 07:15] LABS: Alanine Aminotransferase < 6 U/L (4-50)
--- NOTE | 2021-02-01 07:17 | PC.NURSE ---
Patient report taken by this nurse. Pts blood glucose at shift change is 51. Hypoglycemia protocol followed. Pharmacy called for D5%. Will continue to monitor patient.
[2021-02-01 07:19] LABS: Add Urine Microscopic? YES; Appearance Urine Turbid (Clear); Bacteria Urine 1+ /hpf; Bilirubin Urine Negative (Negative); Blood Urine 1+ (Negative); Color Urine Yellow (Yellow); Glucose Urine UA Negative (Negative); Ketones Urine Trace mg/dL (Negative); Leukocyte Esterase Ur 2+ LEU/UL (Negative); Mucus Urine Few /lpf; Nitrate Urine Negative (Negative); Protein Urine 3+ mg/dL (Negative); RBC Urine 21-50 /hpf (0-2); Specific Grav Ur 1.012 (1.001-1.035); Urobilinogen Urine Negative mg/dL (<2.0); WBC Clumps Urine Present /HPF; WBC Urine >75 /hpf
[2021-02-01] MEDS: DEXTROSE 10% 1,000 ML 50 ML IV CONT (07:59)
[2021-02-01 08:05] LABS: Glucose Point of Care 94 mg/dl (65-105)
[2021-02-01 09:03] LABS: Alveolar/Arterial O2 Gradient 8.6 mmHg; Carboxyhemoglobin 1.2 % THb (0-2.0); Fractional Inspired Oxygen 21 %; HCO3 ABG 23.7 mEq/l (22.0-26.0); Methemoglobin ABG 0.3 %THb (0-1.5); Oxygen Content ABG 12.3 %vol (16.0-22.0); Oxygen Saturation ABG 97.3 % (95.0-100.0); Oxyhemoglobin 95.1 % THb (90.0-100.0); PCO2 ABG 38.9 mmHg (35.0-45.0); PO2 ABG 94.5 mmHg (80.0-100.0); Reduced Hemoglobin 3.4 %THb (0-5.0); Total Hemoglobin 9.1 g/dL (12.0-18.0); pH ABG 7.402 (7.350-7.450)
[2021-02-01 09:04] LABS: Glucose Point of Care 94 mg/dl (65-105)
[2021-02-01 09:04] LABS: Device ROOM AIR; Site Drawn LEFT BRACHIAL
[2021-02-01 10:24] LABS: Glucose Point of Care 97 mg/dl (65-105)
[2021-02-01 11:56] LABS: Glucose Point of Care 96 mg/dl (65-105)
--- NOTE | 2021-02-01 12:01 | PC.NURSE ---
This patient, Maris Jackman, was admitted to Intensive Care Unit-1. Patient/family oriented to hospital policies and general routines including ID bracelet, bed and alarms, visiting hours, pain management, procedures, bathroom and other care routines, personal items, smoking policy, room service/diet, and visiting hours. Information on how to activate the Rapid Response Team has been discussed. Patient/Family are encouraged to report perceived risks to care and to ask questions if they do not understand what they are told or what they should do.
--- NOTE | 2021-02-01 13:44 | PM.IMHP ---
H&P: HPI History of Present Illness Date/Time: 02/01/21 13:44 this is a 75-year-old male patient who resides at [facility] for the last month for rehab. He does have a history of Parkinson's. He was just discharged from this facility on 12/16/2020 where he was treated with Rocephin for urine cultures that were growing Klebsiella. He is also diabetic on insulin. The patient was brought here today from the detention after a bed check was performed and he was found to be hypoglycemic and had a blood sugar in the 30s. According to the the patient had fallen on the floor. The patient did have response to the D10 that the EMS gave him. Patient to remain low and was placed on a D10 drip. The patient was found to be hypothermic with a temperature of 90.4? and was placed on a Karina Hugger. His H&H is 9.2 and 29.9 today which is his baseline. His platelets are 115. Here the patient's blood sugar was 51 and then it did come up to 96. His creatinine is 3.7 today with a baseline 2.8 to 3.1. The patient was found to be positive for UTI. The patient does have a Davidson catheter which is a chronic indwelling Davidson catheter. The patient's stated that he has had this for at least 1 month. The patient is also being treated for shingles with Valtrex since 01/28/2021. 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 The stated that the patient has had multiple falls. Chest x-ray was read as diffuse lung disease improved from 12/14/2020 consistent with pulmonary edema versus pneumonia. Cardiomegaly. The patient was given Rocephin in the emergency room as well as allotted. The patient was not very responsive initially. After my physical exam the patient did wake up. His is answering most of the questions. The spanish linguist has been consulted and was placed in the a ICU. The patient is being admitted to inpatient services on the date of service of 02/01/2021 Chief Complaint: Fall and confusion Review of Systems Review of Systems: The is at the bedside answering the questions and the patient woke up with his physical exam. All systems reviewed & are unremarkable except as noted in HPI and below Constitutional: Constitutional: Reports as per HPI and Reports no additional constitutional complaints Eyes: Eyes: Reports as per HPI and Reports no additional eye complaints ENT: Reports system reviewed and no additional complaints, except as documented and Reports Normal hearing present Cardiovascular: Cardiovascular: Reports no additional cardiovascular complaints Respiratory: Respiratory: Reports no additional respiratory complaints and Reports no additional respiratory complaints Gastrointestinal: Gastrointestinal: Reports as per HPI and Reports no additional gastrointestinal complaints Musculoskeletal: Musculoskeletal: Reports no additional musculoskeletal complaints Integumentary/Breasts: Skin/Breast: Reports system reviewed and no additional complaints, except as docu and Reports as per HPI Neurologic: Reports system reviewed and no additional complaints, except as documented, Reports as per HPI and Reports Normal hearing present Psychiatric: Psychiatric: Reports no additional psychiatric complaints and Reports as per HPI Endocrine: Endocrine: Reports no additional endocrine complaints Hematologic/Lymphatic: Hematologic/Lymphatic: Reports no additional hematologic/lymphatic complaints Allergic/Immunologic: Allergic/Immunologic: Reports no additional allergic/immunologic complaints [facility] Past Medical History Medical History (Updated 02/01/21 @ 14:26 by Gabbie Pepe NP) Afib Anemia BPH (benign prostatic hyperplasia) CHF (congestive heart failure), NYHA class I Echo from 12/02/2020 read as the following 1. Complete two-dimensional, color flow and Doppler transthoracic echocardiogram is performed. 2. Left ventricular chamber dimension is normal. 3. Left ventricular systolic function is normal, estimated
[2021-02-01 13:58] LABS: Glucose Point of Care 97 mg/dl (65-105)
[2021-02-01] MEDS: ACYCLOVIR SODIUM IVPB 800 MG in DEXTROSE 5% IN WATER 250 ML 266 MG IVPB (14:10)
--- NOTE | 2021-02-01 14:43 | WPDCNINT ---
Assessment and Plan Assessment and plan (1) Sepsis: Code(s): A41.9 - Sepsis, unspecified organism Status: Acute Assessment and Plan: Patient presented with altered mental status hypoglycemia, UA reflective of UTI, worsening renal function -continue Karina Hugger for hypothermia -continue D10 infusion for hypoglycemia -continue ceftriaxone for UTI, await blood and urine culture result -will start maintenance IV fluid for worsening renal function (2) Acute UTI: Code(s): N39.0 - Urinary tract infection, site not specified Status: Resolved Assessment and Plan: Continue ceftriaxone -blood and urine cultures - (3) Acute metabolic encephalopathy: Code(s): G93.41 - Metabolic encephalopathy Status: Acute Assessment and Plan: Acute encephalopathy likely related to infection, sepsis, hypoglycemia, hypotensive via -CT scan of the brain did not show any acute intracranial abnormality -patient does open his eyes, follows simple commands in all extremities -continue to monitor (4) Hypoglycemia: Code(s): E16.2 - Hypoglycemia, unspecified Status: Acute Assessment and Plan: Likely related to insulin aspart and glargine that he takes at the rehab center -possible due to infection, decreased p.o. intake, hypovolemia -continue D10 infusion for now (5) Shingles: Code(s): B02.9 - Zoster without complications Status: Acute Assessment and Plan: Continue acyclovir IV (6) Chronic kidney disease, stage IV (severe): Code(s): N18.4 - Chronic kidney disease, stage 4 (severe) Status: Chronic Assessment and Plan: Stage 4 chronic kidney disease patient is status post renal transplant -will have Nephrology follow the patient -patient follows Dr. Olivia at [facility] -urine output has been adequate. Will continue to monitor renal function, electrolytes and urine output (7) Afib: Code(s): I48.91 - Unspecified atrial fibrillation Status: Chronic Assessment and Plan: Patient has history of AFib currently rate controlled -continue carvedilol and Eliquis (8) Parkinson's disease: Code(s): G20 - Parkinson's disease Status: Chronic Assessment and Plan: Continue carbidopa and levodopa (9) Renal transplant recipient: Code(s): Z94.0 - Kidney transplant status Status: Chronic Assessment and Plan: Continue prednisone and tacrolimus (10) Diabetes: Qualifiers: Diabetes mellitus type: type 2 Diabetes mellitus bed bug exterminator insulin use: with bed bug exterminator use Diabetes mellitus complication status: with neurologic complications Diabetes mellitus complication detail: with autonomic neuropathy Qualified Code(s): E11.43 - Type 2 diabetes mellitus with diabetic autonomic (poly)neuropathy; Z79.4 - intermission coordinator (current) use of insulin Code(s): E11.9 - Type 2 diabetes mellitus without complications Status: Chronic Assessment and Plan: Currently hypoglycemic continue D10 infusion, monitor Accu-Cheks closely (11) HTN (hypertension): Qualifiers: Hypertension type: essential hypertension Qualified Code(s): I10 - Essential (primary) hypertension Code(s): I10 - Essential (primary) hypertension Status: Chronic Assessment and Plan: Essential hypertension -continue amlodipine, carvedilol, hydralazine, isosorbide dinitrate Additional Plan Discussed with patient's and updated with patient's condition and plan of care. I answered all questions Code status: Full code Critical care time spent: 46 minutes This dictation may have been done utilizing a voice recognition system. Attempts have been made to correct errors. However, there may be uncorrected grammatical, spelling, and recognition errors present. Due to a high probability of clinically significant, life threatening deterioration, the patient required my highest level of preparedness to intervene e
[2021-02-01] MEDS: SODIUM CHLORIDE 0.9% IV 1,000 ML 50 ML IV CONT (16:19)
--- NOTE | 2021-02-01 16:19 | PHAR ---
THE FOLLOWING HOME MEDS HAVE BEEN VERIFIED BY PHARMACY: MIRIAN ROOT 550 MG CAPSULES NO INDIVIDUAL MARKINGS CLEAR CAPSULE WITH LIGHT BROWN APPEARANCE BOTTLE IS STILL SEALED FROM [employer] [facility] MOTEGRITY 2 MG TABS PINK ROUND TABLET (PRU 2) TACROMILUS 1 MG CAPSULE IMPRINT: 1 MG TACRO COLOR: WHITE
[2021-02-01] MEDS: BRIMONIDINE TARTRATE 0.2% OP SOLN 5 ML BTL 1 DROP EACH EYE (16:20)
[2021-02-01 18:07] LABS: Glucose Point of Care 132 mg/dl (65-105)
[2021-02-01] MEDS: rOPINIRole HCL 0.125 MG TABLET PO (19:56)
[2021-02-01] MEDS: TAMSULOSIN HCL 0.4 MG CAPSULE PO (19:56)
[2021-02-01] MEDS: CARBIDOPA/LEVODOPA 25/100 MG CR TABLET 1 TABLET PO (19:56)
[2021-02-01] MEDS: LATANOPROST 0.005% OP SOLN 2.5 ML BTL 1 DROP EACH EYE (19:56)
[2021-02-01] MEDS: VENLAFAXINE HCL XR 75 MG CAP.ER.24H PO (19:56)
[2021-02-01] MEDS: ATORVASTATIN 40 MG TABLET PO (19:56)
[2021-02-01] MEDS: carvediloL 12.5 MG TABLET PO (19:57)
[2021-02-01 20:09] LABS: Glucose Point of Care 124 mg/dl (65-105)
[2021-02-01 22:10] LABS: Glucose Point of Care 116 mg/dl (65-105)
[2021-02-02] VITALS (12 sets, daily range): BP systolic 117–171; BP diastolic 60–113; PULSE 79–98; RESP 16–19; TEMP 36.4–36.9; O2SAT 92–99
[2021-02-02 00:01] LABS: Glucose Point of Care 128 mg/dl (65-105)
[2021-02-02] MEDS: hydrALAZINE HCL 20 MG/ML VIAL 10 MG IV PUSH (04:08)
[2021-02-02 05:06] LABS: Basophils Percent Auto 0.3 % (0.2-1.2); Eosinophils Absolute Auto 0.1 K/mm3 (0-0.3); Eosinophils Percent Auto 0.8 % (0-4.4); Hemoglobin 9.2 g/dL (14.0-18.0); Immature Granulocyte Absolute 0.04 K/mm3 (0.00-0.031); Immature Granulocyte Percent A 0.6 % (0-0.5); Lymphocytes Absolute Auto 3.57 K/mm3 (0.9-3.2); Lymphocytes Percent Auto 55.8 % (18.3-44.2); Mean Corpuscular HGB Conc 31.7 g/dl (32-36); Mean Corpuscular Hemoglobin 30.2 pg (26-34); Mean Corpuscular Volume 95.1 fl (80-100); Mean Platelet Volume 10.1 fl (7.4-10.4); Monocytes Absolute Auto 0.4 K/mm3 (0.1-0.6); Monocytes Percent Auto 6.7 % (2.6-8.5); Neutrophils Absolute Auto 2.3 K/mm3 (1.3-6.7); Neutrophils Percent Auto 35.8 % (45.5-73.1); Platelet Count Result 121 k/mm3 (150-375); Red Blood Count 3.05 M/mm3 (4.6-6.20); Red Cell Distribution Width 17.7 % (11.5-14.5); White Blood Count 6.4 K/mm3 (4.5-10.0)
[2021-02-02 05:25] LABS: Albumin Level 2.7 g/dL (3.5-5.1); Alkaline Phosphatase 86 U/L (38-126); Anion Gap 6 mmol/L (8-16); Aspartate Amino Transferase 27 U/L (17-59); Bilirubin,Total 0.6 mg/dL (0.2-1.3); Blood Urea Nitrogen 58 mg/dL (9-20); Carbon Dioxide 22 mmol/L (22-30); Chloride 108 mmol/L (98-107); Estimated CRCL calculation 21 ml/min; Estimated Glomerular Filt Rate 19; Glucose 118 mg/dL (65-110); Lactate Dehydrogenase 479 U/L (313-618); Magnesium 1.6 mg/dL (1.6-2.3); Phosphorus 4.4 mg/dL (2.5-4.5); Potassium 4.3 mmol/L (3.4-5.0); Sodium 136 mmol/L (137-145)
[2021-02-02 05:27] LABS: Alanine Aminotransferase < 6 U/L (4-50)
[2021-02-02 07:40] LABS: Glucose Point of Care 114 mg/dl (65-105)
[2021-02-02] MEDS: MAGNESIUM SULF 2 GM/WATER 50ML 2 GM/50 ML BAG IVPB (07:46)
[2021-02-02] MEDS: carvediloL 12.5 MG TABLET PO ×2 (08:38→20:06)
[2021-02-02] MEDS: APIXABAN 2.5 MG TABLET PO ×2 (08:38→17:11)
[2021-02-02] MEDS: VITAMIN B CMPLX/VIT C/FOLIC AC 1 CAPSULE 1 CAP PO (08:38)
[2021-02-02] MEDS: PYRIDOXINE HCL 50 MG TABLET 100 MG PO (08:38)
[2021-02-02] MEDS: ASPIRIN 81 MG CHEWABLE TABLET PO (08:38)
[2021-02-02] MEDS: predniSONE 5 MG TABLET PO (08:38)
[2021-02-02] MEDS: ISOSORBIDE DINITRATE 20 MG TABLET PO ×3 (08:38→17:10)
[2021-02-02] MEDS: CARBIDOPA/LEVODOPA 25/250 MG TABLET 1 TABLET PO ×2 (08:38→17:11)
[2021-02-02] MEDS: PANTOPRAZOLE 40 MG TABLET PO ×2 (08:38→17:13)
[2021-02-02] MEDS: hydrALAZINE HCL 50 MG TABLET 100 MG PO ×3 (08:39→17:10)
[2021-02-02] MEDS: allopurinoL 300 MG TABLET PO (08:39)
[2021-02-02] MEDS: calcitrioL 0.25 MCG CAPSULE 0.5 MCG PO (08:39)
[2021-02-02] MEDS: SODIUM BICARBONATE TAB 650 MG TABLET 1300 MG PO ×2 (08:39→17:10)
[2021-02-02] MEDS: FERROUS SULFATE 324 MG TABLET PO (08:39)
[2021-02-02] MEDS: DOCUSATE SODIUM 100 MG CAPSULE PO ×2 (08:39→17:11)
[2021-02-02] MEDS: amLODIPine BESYLATE 2.5 MG TABLET PO (08:40)
[2021-02-02] MEDS: BRIMONIDINE TARTRATE 0.2% OP SOLN 5 ML BTL 1 DROP EACH EYE ×3 (08:40→17:11)
[2021-02-02] MEDS: ARTIFICIAL TEARS OPHTH SOLN 15 ML BOTTLE 1 DROP EACH EYE (08:40)
--- NOTE | 2021-02-02 08:54 | WPDINTPN ---
Progress Note: A&P Assessment and Plan (1) Sepsis: Code(s): A41.9 - Sepsis, unspecified organism Status: Acute Assessment and Plan: Patient presented with altered mental status hypoglycemia, UA reflective of UTI, worsening renal function -body temperature have stabilized, off Karina Hugger -hypoglycemia has resolved, patient is off D10 infusion -continue ceftriaxone for UTI, -02/01/2021 blood cultures negative x2 -02/01/2021 urine cultures pending -will discontinue maintenance IV fluids and start p.o. diet (2) Acute UTI: Code(s): N39.0 - Urinary tract infection, site not specified Status: Resolved Assessment and Plan: Continue ceftriaxone -blood and urine cultures obtained and pending (3) Acute metabolic encephalopathy: Code(s): G93.41 - Metabolic encephalopathy Status: Acute Assessment and Plan: RESOLVED -patient is awake, alert, oriented x3 at this time Acute encephalopathy likely related to infection, sepsis, hypoglycemia, hypotensive -CT scan of the brain did not show any acute intracranial abnormality -patient does open his eyes, follows simple commands in all extremities -continue to monitor (4) Hypoglycemia: Code(s): E16.2 - Hypoglycemia, unspecified Status: Acute Assessment and Plan: RESOLVED Likely related to insulin aspart and glargine that he takes at the rehab center -possible due to infection, decreased p.o. intake, hypovolemia -OFF D10 infusion (5) Shingles: Code(s): B02.9 - Zoster without complications Status: Acute Assessment and Plan: Continue acyclovir IV (6) Chronic kidney disease, stage IV (severe): Code(s): N18.4 - Chronic kidney disease, stage 4 (severe) Status: Chronic Assessment and Plan: Stage 4 chronic kidney disease patient is status post renal transplant -nephrology was consulted from the ER -patient follows Dr. Olivia at [facility] -urine output has been adequate. Will continue to monitor renal function, electrolytes and urine output (7) Afib: Code(s): I48.91 - Unspecified atrial fibrillation Status: Chronic Assessment and Plan: Patient has history of AFib currently rate controlled -continue carvedilol and Eliquis (8) Parkinson's disease: Code(s): G20 - Parkinson's disease Status: Chronic Assessment and Plan: Continue carbidopa and levodopa (9) Renal transplant recipient: Code(s): Z94.0 - Kidney transplant status Status: Chronic Assessment and Plan: Continue prednisone and tacrolimus (10) Diabetes: Qualifiers: Diabetes mellitus type: type 2 Diabetes mellitus 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 insulin use: with 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 use Diabetes mellitus complication status: with neurologic complications Diabetes mellitus complication detail: with autonomic neuropathy Qualified Code(s): E11.43 - Type 2 diabetes mellitus with diabetic autonomic (poly)neuropathy; Z79.4 - consumer affairs director (current) use of insulin Code(s): E11.9 - Type 2 diabetes mellitus without complications Status: Chronic Assessment and Plan: Off D10 infusion for hypoglycemia, monitor Accu-Cheks closely (11) HTN (hypertension): Qualifiers: Hypertension type: essential hypertension Qualified Code(s): I10 - Essential (primary) hypertension Code(s): I10 - Essential (primary) hypertension Status: Chronic Assessment and Plan: Essential hypertension -continue amlodipine, carvedilol, hydralazine, isosorbide dinitrate Additional Plan Discussed with patient's and updated with patient's condition and plan of care. I answered all questions Code status: Full code Critical care time spent: 33 minute minutes This dictation may have been done utilizing a voice recognition system. Attempts have been made to correct errors. However, there may be uncorrected grammatical, spelling, and recognition errors present. Due to a high proba
[2021-02-02] MEDS: CARBIDOPA/LEVODOPA 25/100 MG CR TABLET 1 TABLET PO ×2 (11:15→20:07)
[2021-02-02] MEDS: CARBAMIDE PEROXIDE 6.5% OT SOLN 15 ML BTL 5 DROP EACH EAR (11:15)
[2021-02-02 11:18] LABS: Glucose Point of Care 177 mg/dl (65-105)
--- NOTE | 2021-02-02 11:36 | PC.NURSE ---
Spoke with patients who states that patient does not have a permanent cerna catheter. He had a catheter for about 5 weeks after last hospitalization but it had been removed and they were working on improving toileting.
[2021-02-02] MEDS: ACYCLOVIR SODIUM IVPB 800 MG in DEXTROSE 5% IN WATER 250 ML 266 MG IVPB (13:19)
--- NOTE | 2021-02-02 16:15 | P.CONNP_ITS ---
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 Olivia) * some recent fluctuations in creatinine due to previous COVID-19 infection (4) Sepsis: Code(s): A41.9 - Sepsis, unspecified organism Status: Acute Assessment and Plan: * as evidenced by presentation with altered mental status, hypoglycemia, hypothermia suspected UTI, and worsening renal function * continue supportive interventions: * Karina Hugger for hypothermia * D10 infusion for hypoglycemia * IV antibiotics for now * follow culture data * follow blood and urine culture result (5) Urinary tract infection: Qualifiers: Hematuria presence: without hematuria Urinary tract infection type: acute cystitis Qualified Code(s): N30.00 - Acute cystitis without hematuria Code(s): N39.0 - Urinary tract infection, site not specified Status: Acute Assessment and Plan: * as evidenced by admission UA * follow culture results * on antibiotics (6) Altered mental status: Qualifiers: Altered mental status type: unspecified Qualified Code(s): R41.82 - Altered mental status, unspecified Code(s): R41.82 - Altered mental status, unspecified Status: Acute Assessment and Plan: * due to infection/sepsis/hypoglycemia * follow mentation (7) HTN (hypertension): Qualifiers: Hypertension type: essential hypertension Qualified Code(s): I10 - Essential (primary) hypertension Code(s): I10 - Essential (primary) hypertension Status: Chronic Assessment and Plan: * stable hemodynamics at this time * follow trend (8) Diabetes: Qualifiers: Diabetes mellitus type: type 2 Diabetes mellitus long term care pharmacist insulin use: with long term care pharmacist use Diabetes mellitus complication status: with neurologic complications Diabetes mellitus complication detail: with autonomic neuropathy Qualified Code(s): E11.43 - Type 2 diabetes mellitus with diabetic autonomic (poly)neuropathy; Z79.4 - termite helper (current) use of insulin Code(s): E11.9 - Type 2 diabetes mellitus without complications Status: Chronic Assessment and Plan: * follow accuchecks * glycemic control Will continue to follow. History of Present Illness Reason for Consult Consult date: 02/02/21 Reason for consult: acute renal failure (on chronic kidney disease) Chief Complaint Chief complaint: hypoglycemia,hypothernia,uti,acute encephalopathy, History of Present Illness Narrative: Most information obtained is from [facility] electronic medical record as well as discussion with the medical staff to vault is care as the patient is somewhat confused at the time my visit. The patient is a 75-year-old male with a past medical histo
--- NOTE | 2021-02-02 16:15 | PM.CNNEP ---
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 Olivia) some recent fluctuations in creatinine due to previous COVID-19 infection (4) Sepsis: Code(s): A41.9 - Sepsis, unspecified organism Status: Acute Assessment and Plan: as evidenced by presentation with altered mental status, hypoglycemia, hypothermia suspected UTI, and worsening renal function continue supportive interventions: Karina Hugger for hypothermia D10 infusion for hypoglycemia IV antibiotics for now follow culture data follow blood and urine culture result (5) Urinary tract infection: Qualifiers: Hematuria presence: without hematuria Urinary tract infection type: acute cystitis Qualified Code(s): N30.00 - Acute cystitis without hematuria Code(s): N39.0 - Urinary tract infection, site not specified Status: Acute Assessment and Plan: as evidenced by admission UA follow culture results on antibiotics (6) Altered mental status: Qualifiers: Altered mental status type: unspecified Qualified Code(s): R41.82 - Altered mental status, unspecified Code(s): R41.82 - Altered mental status, unspecified Status: Acute Assessment and Plan: due to infection/sepsis/hypoglycemia follow mentation (7) HTN (hypertension): Qualifiers: Hypertension type: essential hypertension Qualified Code(s): I10 - Essential (primary) hypertension Code(s): I10 - Essential (primary) hypertension Status: Chronic Assessment and Plan: stable hemodynamics at this time follow trend (8) Diabetes: Qualifiers: Diabetes mellitus type: type 2 Diabetes mellitus 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 History of Present Illness Reason for Consult Consult date: 02/02/21 Reason for consult: acute renal failure (on chronic kidney disease) Chief Complaint Chief complaint: hypoglycemia,hypothernia,uti,acute encephalopathy, History of Present Illness Narrative: Most information obtained is from [facility] of the electronic medical record as well as discussion with the medical staff to vault is care as the patient is somewhat confused at the time my visit. The patient is a 75-year-old male with a past medical history as outlined below who presented to [facility] Emergency room for further evaluation of hypoglycemia and altered mental status. The patient was just recently hospitalized here in November of this year for acute kidney injury on top of his baseline kidney disease in association with altered mental status and a complex urinary tract infection. He recovered from this illness fairly well prior to his discharge. It was noted t
[2021-02-02 16:56] LABS: Glucose Point of Care 251 mg/dl (65-105)
[2021-02-02] MEDS: INSULIN ASPART (*BKC) 100 UNITS/ML SUB-Q (17:10)
[2021-02-02] MEDS: rOPINIRole HCL 0.125 MG TABLET PO (20:06)
[2021-02-02] MEDS: LATANOPROST 0.005% OP SOLN 2.5 ML BTL 1 DROP EACH EYE (20:06)
[2021-02-02] MEDS: ATORVASTATIN 40 MG TABLET PO (20:06)
[2021-02-02] MEDS: VENLAFAXINE HCL XR 75 MG CAP.ER.24H PO (20:07)
[2021-02-02] MEDS: TAMSULOSIN HCL 0.4 MG CAPSULE PO (20:07)
[2021-02-02 20:16] LABS: Glucose Point of Care 262 mg/dl (65-105)
--- NOTE | 2021-02-02 21:00 | PC.NURSE ---
Report given to RN. No further questions. All belongings and meds gathered. Patient to 243. Bed in lowest position, 3/4 siderails up. and Bed alarm on with Ibed awareness.
[2021-02-03] VITALS (8 sets, daily range): BP systolic 124–172; BP diastolic 61–84; PULSE 76–100; RESP 16–21; TEMP 36.3–36.9; O2SAT 96–100
[2021-02-03] MEDS: hydrALAZINE HCL 20 MG/ML VIAL 10 MG IV PUSH (06:03)
[2021-02-03 06:16] LABS: Albumin Level 2.5 g/dL (3.5-5.1); Alkaline Phosphatase 82 U/L (38-126); Anion Gap 7 mmol/L (8-16); Aspartate Amino Transferase 24 U/L (17-59); Bilirubin,Total 0.5 mg/dL (0.2-1.3); Blood Urea Nitrogen 54 mg/dL (9-20); Calcium 8.1 mg/dL (8.4-10.2); Carbon Dioxide 22 mmol/L (22-30); Chloride 107 mmol/L (98-107); Estimated CRCL calculation 24 ml/min; Estimated Glomerular Filt Rate 22; Glucose 203 mg/dL (65-110); Phosphorus 4.3 mg/dL (2.5-4.5); Potassium 4.2 mmol/L (3.4-5.0); Sodium 136 mmol/L (137-145)
[2021-02-03 06:19] LABS: Alanine Aminotransferase < 6 U/L (4-50)
[2021-02-03 06:32] LABS: Basophils Percent Auto 0.5 % (0.2-1.2); Eosinophils Percent Auto 0.7 % (0-4.4); Hematocrit 28.9 % (42.0-52.0); Hemoglobin 9.3 g/dL (14.0-18.0); Immature Granulocyte Absolute 0.06 K/mm3 (0.00-0.031); Lymphocytes Absolute Auto 3.19 K/mm3 (0.9-3.2); Lymphocytes Percent Auto 52.6 % (18.3-44.2); Mean Corpuscular HGB Conc 32.2 g/dl (32-36); Mean Corpuscular Hemoglobin 29.7 pg (26-34); Mean Corpuscular Volume 92.3 fl (80-100); Mean Platelet Volume 10.5 fl (7.4-10.4); Monocytes Absolute Auto 0.5 K/mm3 (0.1-0.6); Monocytes Percent Auto 7.6 % (2.6-8.5); Neutrophils Absolute Auto 2.3 K/mm3 (1.3-6.7); Neutrophils Percent Auto 37.6 % (45.5-73.1); Platelet Count Result 131 k/mm3 (150-375); Red Blood Count 3.13 M/mm3 (4.6-6.20); Red Cell Distribution Width 17.4 % (11.5-14.5); White Blood Count 6.1 K/mm3 (4.5-10.0)
[2021-02-03 08:12] LABS: Glucose Point of Care 176 mg/dl (65-105)
[2021-02-03] MEDS: SODIUM BICARBONATE TAB 650 MG TABLET 1300 MG PO ×2 (09:30→16:52)
[2021-02-03] MEDS: allopurinoL 300 MG TABLET PO (09:30)
[2021-02-03] MEDS: VITAMIN B CMPLX/VIT C/FOLIC AC 1 CAPSULE 1 CAP PO (09:30)
[2021-02-03] MEDS: amLODIPine BESYLATE 2.5 MG TABLET PO (09:30)
[2021-02-03] MEDS: DOCUSATE SODIUM 100 MG CAPSULE PO ×2 (09:31→16:52)
[2021-02-03] MEDS: ASPIRIN 81 MG CHEWABLE TABLET PO (09:31)
[2021-02-03] MEDS: CARBIDOPA/LEVODOPA 25/250 MG TABLET 1 TABLET PO ×2 (09:31→16:52)
[2021-02-03] MEDS: hydrALAZINE HCL 50 MG TABLET 100 MG PO ×3 (09:31→16:52)
[2021-02-03] MEDS: predniSONE 5 MG TABLET PO (09:31)
[2021-02-03] MEDS: carvediloL 12.5 MG TABLET PO ×2 (09:31→20:50)
[2021-02-03] MEDS: PANTOPRAZOLE 40 MG TABLET PO ×2 (09:31→16:52)
[2021-02-03] MEDS: APIXABAN 2.5 MG TABLET PO ×2 (09:31→16:52)
[2021-02-03] MEDS: ISOSORBIDE DINITRATE 20 MG TABLET PO ×3 (09:31→16:53)
[2021-02-03] MEDS: FERROUS SULFATE 324 MG TABLET PO (09:31)
[2021-02-03] MEDS: BRIMONIDINE TARTRATE 0.2% OP SOLN 5 ML BTL 1 DROP EACH EYE ×3 (09:32→16:52)
[2021-02-03] MEDS: CARBAMIDE PEROXIDE 6.5% OT SOLN 15 ML BTL 5 DROP EACH EAR ×2 (09:32→16:52)
[2021-02-03] MEDS: PYRIDOXINE HCL 50 MG TABLET 100 MG PO (09:35)
--- NOTE | 2021-02-03 09:38 | PC.NURSE ---
unable to hang 0900 rocephin on time. waiting for pharmacy to send it. pharmacy notified.
--- NOTE | 2021-02-03 09:39 | PM.IMPN ---
Progress Note: A&P Assessment and Plan (1) Sepsis: Code(s): A41.9 - Sepsis, unspecified organism Status: Acute Assessment and Plan: Patient with history of kidney transplant in 2007 originally presented with altered mental status hypoglycemia, UA reflective of UTI, worsening renal function -body temperature have stabilized, off Karina Hugger -hypoglycemia has resolved, patient is off D10 infusion -continue ceftriaxone for UTI, -02/01/2021 blood cultures negative x2 -02/03/2021 urine cultures Gram-negative bacilli isolated. -continue heart healthy diet (2) Acute UTI: Code(s): N39.0 - Urinary tract infection, site not specified Status: Resolved Assessment and Plan: Continue ceftriaxone -blood unrevealing and urine cultures revealed Gram-negative bacilli. Follow-up ID and sensitivity. (3) Acute metabolic encephalopathy: Code(s): G93.41 - Metabolic encephalopathy Status: Acute Assessment and Plan: RESOLVED -patient is awake, alert, oriented x3 at this time Acute encephalopathy likely related to infection, sepsis, hypoglycemia, hypotensive -CT scan of the brain did not show any acute intracranial abnormality -patient is AAOX3 - (4) Hypoglycemia: Code(s): E16.2 - Hypoglycemia, unspecified Status: Acute Assessment and Plan: RESOLVED Likely related to insulin aspart and glargine that he takes at the rehab center -possible due to infection, decreased p.o. intake, hypovolemia -encourage oral intake. (5) Shingles: Code(s): B02.9 - Zoster without complications Status: Acute Assessment and Plan: Improving. Continue acyclovir IV (6) Chronic kidney disease, stage IV (severe): Code(s): N18.4 - Chronic kidney disease, stage 4 (severe) Status: Chronic Assessment and Plan: Stage 4 chronic kidney disease patient is status post renal transplant -nephrology was consulted from the ER -patient follows Dr. Olivia at [facility] -confer antirejection regimen with Dr. iris samaniego. For now continue prednisone 5 mg p.o. daily and tacrolimus 1 mg p.o. twice a day. Check tacrolimus level prior to next dose. -urine output has been adequate. Will continue to monitor renal function, electrolytes and urine output (7) Afib: Code(s): I48.91 - Unspecified atrial fibrillation Status: Chronic Assessment and Plan: Patient has history of AFib currently rate controlled -continue carvedilol and Eliquis (8) Parkinson's disease: Code(s): G20 - Parkinson's disease Status: Chronic Assessment and Plan: Continue carbidopa and levodopa (9) Renal transplant recipient: Code(s): Z94.0 - Kidney transplant status Status: Chronic Assessment and Plan: Continue prednisone and tacrolimus 1 mg p.o. b.i.d.. Check tacrolimus level prior to next dose. (10) Diabetes: Qualifiers: Diabetes mellitus type: type 2 Diabetes mellitus [facility] insulin use: with terminal system operator use Diabetes mellitus complication status: with neurologic complications Diabetes mellitus complication detail: with autonomic neuropathy Qualified Code(s): E11.43 - Type 2 diabetes mellitus with diabetic autonomic (poly)neuropathy; Z79.4 - half-way (current) use of insulin Code(s): E11.9 - Type 2 diabetes mellitus without complications Status: Chronic Assessment and Plan: Fasting blood sugar 203. Fasting blood sugar was 176. (11) HTN (hypertension): Qualifiers: Hypertension type: essential hypertension Qualified Code(s): I10 - Essential (primary) hypertension Code(s): I10 - Essential (primary) hypertension Status: Chronic Assessment and Plan: Essential hypertension -today blood pressure has been on the 04/24 1/70 2-170 2/81 range. Continue close BP monitoring. Continue home regimen. -continue amlodipine, carvedilol, hydralazine, isosorbide dinitrate Additional Plan Code status: Ful
[2021-02-03 11:56] LABS: Glucose Point of Care 252 mg/dl (65-105)
[2021-02-03] MEDS: CARBIDOPA/LEVODOPA 25/100 MG CR TABLET 1 TABLET PO ×2 (12:24→23:14)
[2021-02-03] MEDS: INSULIN ASPART (*BKC) 100 UNITS/ML SUB-Q ×2 (12:25→16:53)
--- NOTE | 2021-02-03 14:09 | PM.PNNEP ---
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 Olivia) some recent fluctuations in creatinine due to previous COVID-19 infection (4) Sepsis: Code(s): A41.9 - Sepsis, unspecified organism Status: Acute Assessment and Plan: resolving/resolved as evidenced by presentation with altered mental status, hypoglycemia, hypothermia suspected UTI, and worsening renal function IV antibiotics for now follow culture data (5) Urinary tract infection: Qualifiers: Hematuria presence: without hematuria Urinary tract infection type: acute cystitis Qualified Code(s): N30.00 - Acute cystitis without hematuria Code(s): N39.0 - Urinary tract infection, site not specified Status: Acute Assessment and Plan: as evidenced by admission UA urine culture with ESBL Klebsiella on antibiotics (6) Altered mental status: Qualifiers: Altered mental status type: unspecified Qualified Code(s): R41.82 - Altered mental status, unspecified Code(s): R41.82 - Altered mental status, unspecified Status: Acute Assessment and Plan: slow improvement noted due to infection/sepsis/hypoglycemia follow mentation (7) HTN (hypertension): Qualifiers: Hypertension type: essential hypertension Qualified Code(s): I10 - Essential (primary) hypertension Code(s): I10 - Essential (primary) hypertension Status: Chronic Assessment and Plan: stable hemodynamics at this time follow trend (8) Diabetes: Qualifiers: Diabetes mellitus type: type 2 Diabetes mellitus residential insulin use: with intermodal customer service use Diabetes mellitus complication status: with neurologic complications Diabetes mellitus complication detail: with autonomic neuropathy Qualified Code(s): E11.43 - Type 2 diabetes mellitus with diabetic autonomic (poly)neuropathy; Z79.4 - termite control service representative (current) use of insulin Code(s): E11.9 - Type 2 diabetes mellitus without complications Status: Chronic Assessment and Plan: follow accuchecks glycemic control Will continue to follow. Subjective Date/time seen: 02/03/21 14:09 Transferred out of ICU; remains hemodynamically stable with good urine output in the last 24 hours; no apparent distress voiced; no events/issues overnight or earlier this morning. Exam Narrative: General: Elderly male in NAD Heart: normal S1 and S2; no rub Lungs: clear to auscultation Abdomen: soft, nontender, nondistended, positive bowel sounds Extremities: no cyanosis or clubbing; 1+ edema Skin: warm and dry Objective Data Vital Signs Vital Signs: Vital Signs Temp Pulse Resp BP Pulse Ox 02/03/21 14:00 36.3 C L 76 16 124/61 99 02/03/21 09:31 88 02/03/21 09:29 36.3 C L 91 16 131/72 100 02/03/21 09:21 98 02/03/21 06:00 36.6 C 89 21 H 172/81 H 100 02/02/21 20:28 36.4 C L 92 16 163/83 H 97 02/02/21 20:06 95 02/02/21 20:00 95 18 97 Intake/Output Intake/Output: Intake & Output 01/31/21 02/01/21 02/02/21 02/03/21 23:59 23:59 23:59 23:59 Intake Total 366 3930 1486 Outpu
--- NOTE | 2021-02-03 14:09 | P.PNNP_ITS ---
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 Olivia) * some recent fluctuations in creatinine due to previous COVID-19 infection (4) Sepsis: Code(s): A41.9 - Sepsis, unspecified organism Status: Acute Assessment and Plan: * resolving/resolved * as evidenced by presentation with altered mental status, hypoglycemia, h ypothermia suspected UTI, and worsening renal function * IV antibiotics for now * follow culture data (5) Urinary tract infection: Qualifiers: Hematuria presence: without hematuria Urinary tract infection type: acute cystitis Qualified Code(s): N30.00 - Acute cystitis without hematuria Code(s): N39.0 - Urinary tract infection, site not specified Status: Acute Assessment and Plan: * as evidenced by admission UA * urine culture with ESBL Klebsiella * on antibiotics (6) Altered mental status: Qualifiers: Altered mental status type: unspecified Qualified Code(s): R41.82 - Altered mental status, unspecified Code(s): R41.82 - Altered mental status, unspecified Status: Acute Assessment and Plan: * slow improvement noted * due to infection/sepsis/hypoglycemia * follow mentation (7) HTN (hypertension): Qualifiers: Hypertension type: essential hypertension Qualified Code(s): I10 - Essential (primary) hypertension Code(s): I10 - Essential (primary) hypertension Status: Chronic Assessment and Plan: * stable hemodynamics at this time * follow trend (8) Diabetes: Qualifiers: Diabetes mellitus type: type 2 Diabetes mellitus terminal system operator insulin use: with intermediate use Diabetes mellitus complication status: with neurologic complications Diabetes mellitus complication detail: with autonomic neuropathy Qualified Code(s): E11.43 - Type 2 diabetes mellitus with diabetic autonomic ( poly)neuropathy; Z79.4 - termite treater helper (current) use of insulin Code(s): E11.9 - Type 2 diabetes mellitus without complications Status: Chronic Assessment and Plan: * follow accuchecks * glycemic control Will continue to follow. Subjective Date/time seen: 02/03/21 14:09 Transferred out of ICU; remains hemodynamically stable with good urine output in the last 24 hours; no apparent distress voiced; no events/issues overnight or earlier this morning. Exam Narrative: General: Elderly male in NAD Heart: normal S1 and S2; no rub Lungs: clear to auscultation Abdomen: soft, nontender, nondistended, positive bowel sounds Extremities: no cyanosis or clubbing; 1+ edema Skin: warm and dry Objective Data Vital Signs Vital Signs:
[2021-02-03] MEDS: ACYCLOVIR SODIUM IVPB 800 MG in DEXTROSE 5% IN WATER 250 ML 266 MG IVPB (14:34)
[2021-02-03 16:44] LABS: Glucose Point of Care 244 mg/dl (65-105)
[2021-02-03] MEDS: LATANOPROST 0.005% OP SOLN 2.5 ML BTL 1 DROP EACH EYE (20:49)
[2021-02-03] MEDS: VENLAFAXINE HCL XR 75 MG CAP.ER.24H PO (20:50)
[2021-02-03] MEDS: rOPINIRole HCL 0.125 MG TABLET PO (20:50)
[2021-02-03] MEDS: TAMSULOSIN HCL 0.4 MG CAPSULE PO (20:50)
[2021-02-03] MEDS: ATORVASTATIN 40 MG TABLET PO (20:53)
[2021-02-03 21:09] LABS: Glucose Point of Care 261 mg/dl (65-105)
[2021-02-04 04:05] VITALS: BP 165/89; PULSE 98; RESP 20; TEMP 36.8; O2SAT 100
[2021-02-04 07:46] LABS: Glucose Point of Care 219 mg/dl (65-105)
[2021-02-04] MEDS: calcitrioL 0.25 MCG CAPSULE 0.5 MCG PO (08:02)
[2021-02-04] MEDS: PYRIDOXINE HCL 50 MG TABLET 100 MG PO (08:02)
[2021-02-04] MEDS: predniSONE 5 MG TABLET PO (08:02)
[2021-02-04] MEDS: PANTOPRAZOLE 40 MG TABLET PO ×2 (08:03→16:00)
[2021-02-04] MEDS: VITAMIN B CMPLX/VIT C/FOLIC AC 1 CAPSULE 1 CAP PO (08:03)
[2021-02-04] MEDS: hydrALAZINE HCL 50 MG TABLET 100 MG PO ×3 (08:03→16:00)
[2021-02-04] MEDS: DOCUSATE SODIUM 100 MG CAPSULE PO ×2 (08:03→16:00)
[2021-02-04] MEDS: FERROUS SULFATE 324 MG TABLET PO (08:03)
[2021-02-04] MEDS: APIXABAN 2.5 MG TABLET PO ×2 (08:04→16:00)
[2021-02-04] MEDS: CARBIDOPA/LEVODOPA 25/250 MG TABLET 1 TABLET PO ×2 (08:04→16:00)
[2021-02-04] MEDS: allopurinoL 300 MG TABLET PO (08:04)
[2021-02-04] MEDS: ASPIRIN 81 MG CHEWABLE TABLET PO (08:04)
[2021-02-04] MEDS: SODIUM BICARBONATE TAB 650 MG TABLET 1300 MG PO ×2 (08:04→16:00)
[2021-02-04 08:07] VITALS: PULSE 101
[2021-02-04] MEDS: carvediloL 12.5 MG TABLET PO ×2 (08:07→21:17)
[2021-02-04] MEDS: BRIMONIDINE TARTRATE 0.2% OP SOLN 5 ML BTL 1 DROP EACH EYE ×3 (08:08→16:01)
[2021-02-04] MEDS: CARBAMIDE PEROXIDE 6.5% OT SOLN 15 ML BTL 5 DROP EACH EAR ×2 (08:08→16:01)
[2021-02-04] MEDS: ISOSORBIDE DINITRATE 20 MG TABLET PO ×3 (08:08→16:33)
[2021-02-04] MEDS: amLODIPine BESYLATE 2.5 MG TABLET PO (08:08)
[2021-02-04] MEDS: INSULIN ASPART (*BKC) 100 UNITS/ML SUB-Q ×3 (08:10→16:33)
--- NOTE | 2021-02-04 08:47 | PM.IMPN ---
Progress Note: A&P Assessment and Plan (1) Sepsis: Code(s): A41.9 - Sepsis, unspecified organism Status: Acute Assessment and Plan: Patient with history of kidney transplant in 2007 originally presented with altered mental status hypoglycemia, UA reflective of UTI, worsening renal function -body temperature have stabilized, off Karina Hugger; it is 98.3F today -hypoglycemia has resolved, patient is off D10 infusion -urine culture growing Klebsiella. The patient initially started on ceftriaxone, was switched to Zosyn. Consult ID for adjustment of antibiotic therapy. -02/01/2021 blood cultures negative x2 -02/03/2021 urine cultures Klebsiella sensitive to limited given and cefepime was isolated -continue heart healthy diet (2) Acute UTI: Code(s): N39.0 - Urinary tract infection, site not specified Status: Resolved Assessment and Plan: Continue Zosyn -blood unrevealing and urine cultures revealed Klebsiella. Follow-up ID and sensitivity. (3) Acute metabolic encephalopathy: Code(s): G93.41 - Metabolic encephalopathy Status: Acute Assessment and Plan: RESOLVED -patient is awake, alert, oriented x3 at this time Acute encephalopathy likely related to infection, sepsis, hypoglycemia, hypotensive -CT scan of the brain did not show any acute intracranial abnormality -patient is AAOX3 - (4) Hypoglycemia: Code(s): E16.2 - Hypoglycemia, unspecified Status: Acute Assessment and Plan: RESOLVED Likely related to insulin aspart and glargine that he takes at the rehab center -possible due to infection, decreased p.o. intake, hypovolemia -encourage oral intake. (5) Shingles: Code(s): B02.9 - Zoster without complications Status: Acute Assessment and Plan: Improving. Continue acyclovir IV (6) Chronic kidney disease, stage IV (severe): Code(s): N18.4 - Chronic kidney disease, stage 4 (severe) Status: Chronic Assessment and Plan: Stage 4 chronic kidney disease patient is status post renal transplant -nephrology was consulted from the ER -baseline kidney function unknown. The old records from [facility] reviewed with the at the bedside; creatinine was 2.8 in September 2020. -Urinary output is adequate with 2.1 L of urine produced over -patient follows Dr. Olivia at [facility] -confer antirejection regimen with Dr. Olivia. For now continue prednisone 5 mg p.o. daily and tacrolimus 1 mg p.o. twice a day. Check tacrolimus level prior to next dose. -urine output has been adequate. Will continue to monitor renal function, electrolytes and urine output (7) Afib: Code(s): I48.91 - Unspecified atrial fibrillation Status: Chronic Assessment and Plan: Patient has history of AFib currently rate controlled -continue carvedilol and Eliquis (8) Parkinson's disease: Code(s): G20 - Parkinson's disease Status: Chronic Assessment and Plan: Continue carbidopa and levodopa (9) Renal transplant recipient: Code(s): Z94.0 - Kidney transplant status Status: Chronic Assessment and Plan: Continue prednisone and tacrolimus 1 mg p.o. b.i.d.. Check tacrolimus level prior to next dose. (10) Diabetes: Qualifiers: Diabetes mellitus type: type 2 Diabetes mellitus long-term insulin use: with watermelon inspector use Diabetes mellitus complication status: with neurologic complications Diabetes mellitus complication detail: with autonomic neuropathy Qualified Code(s): E11.43 - Type 2 diabetes mellitus with diabetic autonomic (poly)neuropathy; Z79.4 - halfway (current) use of insulin Code(s): E11.9 - Type 2 diabetes mellitus without complications Status: Chronic Assessment and Plan: Fasting blood sugar 203. Fasting blood sugar was 176-261. (11) HTN (hypertension): Qualifiers: Hypertension type: essential hypertension Qualified Code(s): I10 - Essential (primary) hypertension
[2021-02-04] MEDS: CARBIDOPA/LEVODOPA 25/100 MG CR TABLET 1 TABLET PO ×2 (11:05→22:12)
[2021-02-04 12:09] VITALS: BP 146/69; PULSE 83
[2021-02-04 12:12] LABS: Glucose Point of Care 265 mg/dl (65-105)
[2021-02-04] MEDS: ACYCLOVIR SODIUM IVPB 800 MG in DEXTROSE 5% IN WATER 250 ML 100 MG IVPB (13:39)
[2021-02-04] MEDS: GABAPENTIN 100 MG CAPSULE PO (13:40)
[2021-02-04] MEDS: WATER FOR IRRIGATION, STERILE 1,000 ML BOTTLE 1000 ML (13:40)
[2021-02-04 14:00] VITALS: BP 127/65; PULSE 72; RESP 16; TEMP 36.2; O2SAT 98
--- NOTE | 2021-02-04 14:03 | PM.PNNEP ---
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 Olivia) some recent fluctuations in creatinine due to previous COVID-19 infection (4) Sepsis: Code(s): A41.9 - Sepsis, unspecified organism Status: Acute Assessment and Plan: resolving/resolved as evidenced by presentation with altered mental status, hypoglycemia, hypothermia suspected UTI, and worsening renal function IV antibiotics as per Infectious Disease follow culture data (5) Urinary tract infection: Qualifiers: Hematuria presence: without hematuria Urinary tract infection type: acute cystitis Qualified Code(s): N30.00 - Acute cystitis without hematuria Code(s): N39.0 - Urinary tract infection, site not specified Status: Acute Assessment and Plan: as evidenced by admission UA urine culture with ESBL Klebsiella on antibiotics (6) Altered mental status: Qualifiers: Altered mental status type: unspecified Qualified Code(s): R41.82 - Altered mental status, unspecified Code(s): R41.82 - Altered mental status, unspecified Status: Acute Assessment and Plan: slow improvement noted due to infection/sepsis/hypoglycemia follow mentation (7) HTN (hypertension): Qualifiers: Hypertension type: essential hypertension Qualified Code(s): I10 - Essential (primary) hypertension Code(s): I10 - Essential (primary) hypertension Status: Chronic Assessment and Plan: stable hemodynamics at this time follow trend (8) Diabetes: Qualifiers: Diabetes mellitus type: type 2 Diabetes mellitus termite treater insulin use: with termite treater use Diabetes mellitus complication status: with neurologic complications Diabetes mellitus complication detail: with autonomic neuropathy Qualified Code(s): E11.43 - Type 2 diabetes mellitus with diabetic autonomic (poly)neuropathy; Z79.4 - terminal operations manager (current) use of insulin Code(s): E11.9 - Type 2 diabetes mellitus without complications Status: Chronic Assessment and Plan: follow accuchecks glycemic control Will continue to follow. Subjective Date/time seen: 02/04/21 14:03 Seems to be doing reasonably well; no apparent distress noted but complaints of generalized fatigue; no issues/events overnight or earlier this morning; good urine output noted and eating/drinking reasonably well. Exam Narrative: General: Elderly male in NAD Heart: normal S1 and S2; no rub Lungs: clear to auscultation Abdomen: soft, nontender, nondistended, positive bowel sounds Extremities: no cyanosis or clubbing; 1+ edema Skin: warm and intact Objective Data Vital Signs Vital Signs: Vital Signs Temp Pulse Resp BP Pulse Ox 02/04/21 12:09 83 146/69 H 02/04/21 08:07 101 H 02/04/21 04:05 36.8 C 98 20 165/89 H 100 02/03/21 23:53 36.9 C 100 18 166/84 H 96 02/03/21 20:50 90 02/03/21 20:02 36.8 C 91 18 154/75 H 99 Intake/Output Intake/Output: Intake & Output 02/01/21 02/02/21 02/03/21 02/04/21 23:59 23:59 23:59 23:59 Intake Total 366 2496 1460 940 Output Total 155
--- NOTE | 2021-02-04 14:03 | P.PNNP_ITS ---
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 Olivia) * some recent fluctuations in creatinine due to previous COVID-19 infection (4) Sepsis: Code(s): A41.9 - Sepsis, unspecified organism Status: Acute Assessment and Plan: * resolving/resolved * as evidenced by presentation with altered mental status, hypoglycemia, h ypothermia suspected UTI, and worsening renal function * IV antibiotics as per Infectious Disease * follow culture data (5) Urinary tract infection: Qualifiers: Hematuria presence: without hematuria Urinary tract infection type: acute cystitis Qualified Code(s): N30.00 - Acute cystitis without hematuria Code(s): N39.0 - Urinary tract infection, site not specified Status: Acute Assessment and Plan: * as evidenced by admission UA * urine culture with ESBL Klebsiella * on antibiotics (6) Altered mental status: Qualifiers: Altered mental status type: unspecified Qualified Code(s): R41.82 - Altered mental status, unspecified Code(s): R41.82 - Altered mental status, unspecified Status: Acute Assessment and Plan: * slow improvement noted * due to infection/sepsis/hypoglycemia * follow mentation (7) HTN (hypertension): Qualifiers: Hypertension type: essential hypertension Qualified Code(s): I10 - Essential (primary) hypertension Code(s): I10 - Essential (primary) hypertension Status: Chronic Assessment and Plan: * stable hemodynamics at this time * follow trend (8) Diabetes: Qualifiers: Diabetes mellitus type: type 2 Diabetes mellitus lobsterman insulin use: with lobsterman use Diabetes mellitus complication status: with neurologic complications Diabetes mellitus complication detail: with autonomic neuropathy Qualified Code(s): E11.43 - Type 2 diabetes mellitus with diabetic autonomic (poly)neuropathy; Z79.4 - [facility] (current) use of insulin Code(s): E11.9 - Type 2 diabetes mellitus without complications Status: Chronic Assessment and Plan: * follow accuchecks * glycemic control Will continue to follow. Subjective Date/time seen: 02/04/21 14:03 Seems to be doing reasonably well; no apparent distress noted but complaints of generalized fatigue; no issues/events overnight or earlier this morning; good urine output noted and eating/drinking reasonably well. Exam Narrative: General: Elderly male in NAD Heart: normal S1 and S2; no rub Lungs: clear to auscultation Abdomen: soft, nontender, nondistended, positive bowel sounds Extremities: no cyanosis or clubbing; 1+ edema Skin: warm and intact Objectiv
--- NOTE | 2021-02-04 14:08 | WPDINFPN2 ---
Progress Note: A&P Assessment and Plan (1) UTI (urinary tract infection): Code(s): N39.0 - Urinary tract infection, site not specified Status: Acute Assessment and Plan: Uti of transplant kidney REC Ertapenem x 10 days. No oral suppression. Remove Davidson as soon as possible, it is non chronic, RN reports that Urology is now following. Call if Qs Subjective Date/time seen: 02/04/21 14:08 Objective Data Vital Signs Vital Signs: Vital Signs - 24 hr 02/03/21 20:02 02/03/21 20:50 02/03/21 23:53 Temperature 36.8 C 36.9 C Pulse Rate 91 90 100 Respiratory Rate 18 18 Blood Pressure 154/75 H 166/84 H Pulse Oximetry 99 96 02/04/21 04:05 02/04/21 08:07 02/04/21 12:09 Temperature 36.8 C Pulse Rate 98 101 H 83 Respiratory Rate 20 Blood Pressure 165/89 H 146/69 H Pulse Oximetry 100 Intake/Output Intake/Output: Intake & Output 02/01/21 02/02/21 02/03/21 02/04/21 23:59 23:59 23:59 23:59 Intake Total 366 2496 1460 650 Output Total 1550 2000 700 2100 Balance -1184 496 760 -6600 Meds/Results Medications: Active Medications Generic Name Dose Route Start Last Admin Trade Name Freq PRN Reason Stop Dose Admin Albuterol 2 puff 02/01/21 14:31 Albuterol Sulfate (*Sp) Aerosol 1 Puff INHALATION Q6HRT PRN Shortness Of Breath Allopurinol 300 mg 02/02/21 09:00 02/04/21 08:04 Allopurinol 300 Mg Tablet PO 300 mg DAILY MARICHUY Administration Amlodipine Besylate 2.5 mg 02/02/21 09:00 02/04/21 08:08 Amlodipine Besylate 2.5 Mg Tablet PO 2.5 mg QAM MARICHUY Administration Apixaban 2.5 mg 02/01/21 17:00 02/04/21 08:04 Apixaban 2.5 Mg Tablet PO 2.5 mg BID MARICHUY Administration Artificial Tears 1 drop 02/01/21 14:42 02/02/21 08:40 Artificial Tears Ophth Soln 15 Ml Bottle EACH EYE 1 drop TID PRN Administration Dry Eyes Aspirin 81 mg 02/02/21 09:00 02/04/21 08:04 Aspirin 81 Mg Chewable Tablet PO 81 mg DAILY MARICHUY Administration Atorvastatin Calcium 40 mg 02/01/21 21:00 02/03/21 20:53 Atorvastatin 40 Mg Tablet PO 40 mg HS MARICHUY Administration Brimonidine Tartrate 1 drop 02/01/21 17:00 02/04/21 12:10 Brimonidine Tartrate 0.2% Op Soln 5 Ml Btl EACH EYE 1 drop TID MARICHUY Administration Calcitriol 0.5 mcg 02/02/21 09:00 02/04/21 08:02 Calcitriol 0.25 Mcg Capsule PO 0.5 mcg [id number] MARICHUY Administration Carbamide Peroxide 5 drop 02/01/21 17:00 02/04/21 08:08 Carbamide Peroxide 6.5% Ot Soln 15 Ml Btl EACH EAR 5 drop BID MARICHUY Administration Carbidopa/Levodopa 1 tablet 02/01/21 17:00 02/04/21 08:04 Carbidopa/Levodopa 25/250 Mg Tablet PO 1 tablet BID MARICHUY Administration Carbidopa/Levodopa 1 tablet 02/01/21 23:00 02/04/21 11:05 Carbidopa/Levodopa 25/100 Mg Cr Tablet PO 1 tablet Q12H MARICHUY Administration Carvedilol 12.5 mg 02/01/21 21:00 02/04/21 08:07 Carvedilol 12.5 Mg Tablet PO 12.5 mg Q12H MARICHUY Administration Dextrose 12.5 gm 02/02/21 16:58 Dextrose 50% 25 Gm/50 Ml Syringe IV PUSH PRN PRN Hypoglycemia Protocol Docusate Sodium 100 mg 02/01/21 17:00 02/04/21 08:03 Docusate Sodium 100 Mg Capsule PO 100 mg BID MARICHUY Administration Ferrous Sulfate 324 mg 02/02/21 09:00 02/04/21 08:03 Ferrous Sulfate 324 Mg Tablet PO 324 mg DAILY MARICHUY Administration Fluticasone Propionate 2 spray 02/01/21 14:31 Fluticasone Propionate 0.05% Na Spr 16 Gm Btl (*Bkc) NASAL DAILY PRN Allergy Symptoms Gabapentin 100 mg 02/04/21 12:20 02/04/21 13:40 Gabapentin 100 Mg Capsule PO 100 mg QAM MARICHUY Administration Glucagon 1 mg 02/02/21 16:58 Glucagon For Inj 1 Mg Vial IM PRN PRN Hypoglycemia Protocol Glucose 15 gm 02/02/21 16:58 Glucose Oral Gel 15 Gm Of Glucse In 37.5 Gm Tube PO PRN PRN Hypoglycemia Protocol Home Med 1 each 02/02/21 09:00 02/04/21 08:09 Home Medication: (Prucalopride [Mo
--- NOTE | 2021-02-04 14:54 | CONS_ITS ---
DATE OF CONSULTATION: 02/04/2021 REASON FOR CONSULTATION: UTI. HISTORY OF PRESENT ILLNESS: 75-year-old male with BPH and renal transplant. He was here in the hospital in early November with UTI and had Davidson catheter at that time. The catheter was removed about a week after discharge and he was without a catheter until he returned to the hospital here on February 01. His readmission was brought on by hypothermia and hypoglycemia. The patient had a Davidson catheter implanted once again and he was admitted. He has been given piperacillin tazobactam. Consultation requested. His immunosuppressants remain without change. 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 The patient denies any abdominal pain, nausea, vomiting, fever, chills, sweats, CVA pain or difficulty urinating prior to admission. ALLERGIES: LEVOFLOXACIN CAUSED HIVES. OTHERS NOT PERTINENT. HABITS: No tobacco, alcohol, or illicit drugs. PRESENT MEDICATIONS: See above. He is on tacrolimus 2 mg b.i.d., prednisone 5 mg daily. PAST MEDICAL HISTORY: Renal transplant as above, CABG, subdural hematoma, seizure disorder, peripheral vascular disease, Parkinson's, hypertension, hyperlipidemia, TAVR, [place], gout, glaucoma, diabetes, stage 3 chronic renal insufficiency, anemia, and AF. REVIEW OF SYSTEMS: He has memory loss compromising review, 14-point review otherwise negative. FAMILY HISTORY: Diabetes, stroke, heart disease, stomach cancer. SOCIAL HISTORY: is at the bedside. Three children. 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 PHYSICAL EXAMINATION: GENERAL: Elderly male who appears actual age. No acute distress. VITAL SIGNS: Afebrile since arrival, 98, 20, 165/89, 100% on room air. SKIN: Warm and dry. No rashes. Ecchymoses present. NODES: He has no cervical or axillary adenopathy. EENT: The conjunctivae are normal. Pupils equal, round, and reactive to light. The oropharynx, oral mucosa normal. NECK: No masses or meningismus. LUNGS: Clear to auscultation. BACK: No CVAT. CARDIAC: Regular rate and rhythm. No murmur, gallop, or rub. ABDOMEN: Soft, nontender. No organomegaly. No masses. : Davidson catheter draining clear yellow urine. EXTREMITIES: 2+ pitting edema. LABORATORY DATA: From February 01, urine culture greater than 10 to 5th Klebsiella oxytoca ESBL pipe stem aligner. Ertapenem DK less than equal to 0.5. Blood cultures same day, 1 out of 2 sets gram-positive cocci in clusters. Other laboratory includes elevated BUN and creatinine, most recently 54 and 2.8, down from 68 and 3.7. Accu-Cheks in the 200s. A1c 6.0%, calcium low, but his albumin is also low at 2.5. Urinalysis, multiple abnormalities, which are reviewed. Blood gases were normal. RADIOLOGY: Renal ultrasound showed mild to moderate hydronephrosis of his transplanted kidney located in the left pelvis. Davidson catheter in place. Bladder wall thickening. He has right [place] kidney, increased echogenicity. ASSESSMENT: 1. Klebsiella urinary tract infection of his transplanted kidney and bladder, partially treated at this point with piperacillin. 2. Gram-positive bacteremia, suspect contaminant. 3. Immunocompromised and immunosuppressed. 4. Chronic renal insufficiency. 5. Past seizure disorder, avoid imipenem. 6. Davidson catheter in place. RECOMMENDATIONS: 1. Urology following for the Davidson catheter. 2. No suppressive antibiotics after acute treatment is finished. 3. Ertapenem for 10-day course and adjust for his renal insufficiency, using 500 mg once daily. 4. Okay with me for discharge planning. 5. Vancomycin while we await results of his blood culture identification. If this is identified as Staphylococcus not aur
[2021-02-04] MEDS: ERTAPENEM SODIUM 0.5 GM in SODIUM CHLORIDE 0.9% IV 50 ML IVPB (15:06)
[2021-02-04] MEDS: LIDOCAINE HCL 2% JELLY 30 ML TUBE 1 APPLIC MUCOUS MEM (15:20)
--- NOTE | 2021-02-04 15:51 | WPDURCON ---
Assessment and Plan Assessment and plan (1) UTI (urinary tract infection): Code(s): N39.0 - Urinary tract infection, site not specified Status: Acute Assessment and Plan: Continue IV antibiotics. (2) Renal transplant recipient: Code(s): Z94.0 - Kidney transplant status Status: Chronic (3) BPH (benign prostatic hyperplasia): Code(s): N40.0 - Benign prostatic hyperplasia without lower urinary tract symptoms Status: Chronic Assessment and Plan: Continue Tamsulosin. Suggest doing a voiding trial prior to discharge to ensure he can urinate on his own and to reduce his risk of infections. If Unable to uriante, replace a 16fr cerna and f/u in the office for further evaluation. (4) Urinary retention: Code(s): R33.9 - Retention of urine, unspecified Status: Acute (5) Hydronephrosis: Code(s): N13.30 - Unspecified hydronephrosis Status: Acute Assessment and Plan: Likely secondary to obstructed cerna, the cerna was exchanged today and irrigated without difficulty at the bedside during my visit with him. He tolerated it well. I suggest we repeat the ED tomorrow to ensure hydro has resolved. Urology Consult Note HPI Date Seen: 02/04/21 Requesting Physician: Willy Steen MD Primary Care Provider: Neftaly Ford MD Consult Narrative Narrative: Maris Jackman is a 75 year old male who presented to the ER on 02/01/2021 for altered mental status changes in the [place] where he resides. He was found to be hypoglycemic and hypothermic as well. He has a complicated urologic history with a renal transplant of the left kidney in [address] [facility]. He has an atrophic andreafski right kidney and follows nephrology at [facility], Dr. Olivia. He also has had a cerna in for about a month, but it is unclear as to why, he is unsure. He is on Tamsulosin at this time and has had a UTI as recent as 12/16/2020 at [facility] last admission which grew Klebsiella on his culture he was treated and released back to the [place]. His catheter has not been changed according to the notes. It is draining but not well, is thick, has sediment and is very cloudy. We were consulted d/t a new finding on ED of mild to moderate hydronephrosis of transplant kidney which was not present on ED from 12/03/2020. He has CKD stage 4 with a stable creatinine of 2.50 and a normal WBC of 8.2, he is afebrile, awake and talking but only A&O x2. He is unable to tell me about his normal urinary symptoms such as frequency, urgency, incontinence, straining, hesitancy or history of UTI's. His urine culture this hospitalization on 02/01/2021 grew Klebsiella as well. Review of Systems Cardiovascular: Cardiovascular: Denies chest pain Respiratory: Respiratory: Reports no additional respiratory complaints Gastrointestinal: Gastrointestinal: Denies abdominal pain, Denies nausea and Denies vomiting Genitourinary: Genitourinary: Denies hematuria and Denies flank pain PMFSH Past Medical History Medical History Afib Anemia BPH (benign prostatic hyperplasia) CHF (congestive heart failure), NYHA class I Echo from 12/02/2020 read as the following 1. Complete two-dimensional, color flow and Doppler transthoracic echocardiogram is performed. 2. Left ventricular chamber dimension is normal. 3. Left ventricular systolic function is normal, estimated at 55-60%. 4. There is mildly increased left ventricular wall thickness. 5. The left ventricular diastolic function is grade II diastolic dysfunction. 6. E/e' 16 is elevated. 7. Right ventricular systolic function is reduced based on abnormal TAPSE 1.1 cm. 8. Left atrial chamber dimension is mildly enlarged. 9. The bioprosthetic aortic valve is not well visualized. 10. The mitral valve has mildly calcified leaflets and mildly calcified annulus. 11. No pulmonary hypertension, estimated pulmonary arterial systolic pressure is 13 mm
[2021-02-04 16:19] LABS: Glucose Point of Care 313 mg/dl (65-105)
[2021-02-04] MEDS: TAMSULOSIN HCL 0.4 MG CAPSULE PO (21:16)
[2021-02-04] MEDS: LATANOPROST 0.005% OP SOLN 2.5 ML BTL 1 DROP EACH EYE (21:16)
[2021-02-04 21:17] VITALS: PULSE 90
[2021-02-04] MEDS: ATORVASTATIN 40 MG TABLET PO (21:17)
[2021-02-04] MEDS: VENLAFAXINE HCL XR 75 MG CAP.ER.24H PO (21:30)
[2021-02-04 21:40] LABS: Glucose Point of Care 283 mg/dl (65-105)
[2021-02-04 21:44] VITALS: BP 160/80; PULSE 90; RESP 20; TEMP 36.5; O2SAT 99
[2021-02-04] MEDS: rOPINIRole HCL 0.125 MG TABLET PO (22:10)
[2021-02-04] MEDS: SILVER SULFADIAZINE 1% CR 50 GM JAR (*BKC) 1 APPLIC TOPICAL (22:12)
[2021-02-05] VITALS (7 sets, daily range): BP systolic 136–174; BP diastolic 66–81; PULSE 77–98; RESP 18; TEMP 36.4–36.9; O2SAT 96–99
[2021-02-05 06:29] LABS: Albumin Level 2.5 g/dL (3.5-5.1); Anion Gap 5 mmol/L (8-16); Blood Urea Nitrogen 47 mg/dL (9-20); Carbon Dioxide 22 mmol/L (22-30); Chloride 104 mmol/L (98-107); Estimated CRCL calculation 25 ml/min; Estimated Glomerular Filt Rate 22; Glucose 230 mg/dL (65-110); Phosphorus 3.7 mg/dL (2.5-4.5); Potassium 4.4 mmol/L (3.4-5.0); Sodium 131 mmol/L (137-145)
[2021-02-05 06:30] LABS: Tacrolimus Prograf 5.4 mcg/L
[2021-02-05 08:06] LABS: Glucose Point of Care 217 mg/dl (65-105)
[2021-02-05] MEDS: SILVER SULFADIAZINE 1% CR 50 GM JAR (*BKC) 1 APPLIC TOPICAL ×2 (08:13→20:40)
[2021-02-05] MEDS: BRIMONIDINE TARTRATE 0.2% OP SOLN 5 ML BTL 1 DROP EACH EYE ×3 (08:13→16:54)
[2021-02-05] MEDS: CARBAMIDE PEROXIDE 6.5% OT SOLN 15 ML BTL 5 DROP EACH EAR ×2 (08:13→16:54)
[2021-02-05] MEDS: DOCUSATE SODIUM 100 MG CAPSULE PO ×2 (08:14→16:52)
[2021-02-05] MEDS: VITAMIN B CMPLX/VIT C/FOLIC AC 1 CAPSULE 1 CAP PO (08:14)
[2021-02-05] MEDS: hydrALAZINE HCL 50 MG TABLET 100 MG PO ×3 (08:14→16:53)
[2021-02-05] MEDS: amLODIPine BESYLATE 2.5 MG TABLET PO (08:14)
[2021-02-05] MEDS: allopurinoL 300 MG TABLET PO (08:14)
[2021-02-05] MEDS: APIXABAN 2.5 MG TABLET PO ×2 (08:14→16:53)
[2021-02-05] MEDS: FERROUS SULFATE 324 MG TABLET PO (08:15)
[2021-02-05] MEDS: GABAPENTIN 100 MG CAPSULE PO (08:15)
[2021-02-05] MEDS: carvediloL 12.5 MG TABLET PO ×2 (08:15→20:40)
[2021-02-05] MEDS: ASPIRIN 81 MG CHEWABLE TABLET PO (08:15)
[2021-02-05] MEDS: PYRIDOXINE HCL 50 MG TABLET 100 MG PO (08:15)
[2021-02-05] MEDS: CARBIDOPA/LEVODOPA 25/250 MG TABLET 1 TABLET PO ×2 (08:16→16:53)
[2021-02-05] MEDS: SODIUM BICARBONATE TAB 650 MG TABLET 1300 MG PO ×2 (08:16→16:52)
[2021-02-05] MEDS: predniSONE 5 MG TABLET PO (08:17)
[2021-02-05] MEDS: ISOSORBIDE DINITRATE 20 MG TABLET PO ×3 (08:17→16:53)
[2021-02-05] MEDS: PANTOPRAZOLE 40 MG TABLET PO ×2 (08:17→16:53)
[2021-02-05] MEDS: INSULIN ASPART (*BKC) 100 UNITS/ML SUB-Q ×2 (08:17→16:49)
[2021-02-05] MEDS: CARBIDOPA/LEVODOPA 25/100 MG CR TABLET 1 TABLET PO ×2 (10:28→22:45)
[2021-02-05 11:59] LABS: Glucose Point of Care 190 mg/dl (65-105)
[2021-02-05 12:53] LABS: Alveolar/Arterial O2 Gradient 32.1 mmHg; Base Excess ABG 0.5 mEq/l (+/-2.0); Fractional Inspired Oxygen 21 %; Oxygen Content ABG 12.5 %vol (16.0-22.0); Oxygen Saturation ABG 96.1 % (95.0-100.0); Oxyhemoglobin 94.8 % THb (90.0-100.0); PCO2 ABG 34.1 mmHg (35.0-45.0); PO2 ABG 76.8 mmHg (80.0-100.0); PO2 FiO2 Ratio Arterial Blood 3.66 %; Site Drawn LEFT BRACHIAL; Total Hemoglobin 9.3 g/dL (12.0-18.0); pH ABG 7.466 (7.350-7.450)
[2021-02-05 12:54] LABS: Device ROOM AIR
--- NOTE | 2021-02-05 13:27 | WPDUROPN2 ---
Progress Note: A&P Additional Plan 75-year-old gentleman status post renal transplant in 2007 admitted for ESBL UTI with moderate hydronephrosis of transplant kidney new from November. Davidson catheter in place and draining, exchanged yesterday. 1. Maintain Davidson catheter, can consider repeat renal bladder ultrasound in 48 hours. Suspect persistence of hydronephrosis may be secondary to cystitis and inflammation at the neoureteral orifice. 2. Trend creatinine and CBC. 3. Appreciate Infectious Disease recommendations. 4. Patient will follow-up with Transplant surgery in upcoming weeks. Subjective Subjective Date/Time Seen: 02/05/21 13:27 Interval history: NAEO, the patient's reports he is somewhat sluggish today has concerned that he did not sleep well. He denies pain today. After catheter change yesterday, his urine is clear with no sign of purulence or other concerning sediment. His creatinine has downtrended. Renal bladder ultrasound demonstrates stable mild to moderate hydronephrosis. Infectious Disease on board for ESBL. Exam Const: General: cooperative, healthy appearing, comfortable and alert Orientation/consciousness: oriented to person, oriented to place and oriented to time HENMT: Head: normal to inspection Ears: hearing grossly normal bilaterally Face and sinus: normal facial exam Mouth: Yes Normal oral and palatal mucosa present Eyes: General: appearance normal, both eyes and all related structures Visual Kirby: normal visual kirby by confrontation EOM: EOMs intact bilaterally Neck: Neck: normal visual inspection Chest: Chest palpation & inspection: normal inspection of the chest Resp: Effort & Inspection: normal respiratory effort, able to speak in complete sentences, normal respiratory pattern, no audible wheezes and no cough Cardio: Jugular venous distension: no JVD Rate: regular rate Rhythm: regular rhythm GI: Inspection: normal to inspection and non-distended GI Palp: Yes abdominal tenderness Rectal Exam: deferred Urinary Catheter: Urinary Catheter: patent and draining, urine clear and urine cloudy Objective Data Vital Signs Vital Signs: Vital Signs - 24 hr 02/04/21 14:00 02/04/21 21:17 02/04/21 21:44 Temperature 97.2 F L 97.7 F Pulse Rate 72 90 90 Respiratory Rate 16 20 Blood Pressure 127/65 160/80 H Pulse Oximetry 98 99 02/05/21 06:17 02/05/21 08:15 02/05/21 11:52 Temperature 97.5 F L 98.5 F Pulse Rate 93 98 81 Respiratory Rate 18 Blood Pressure 174/81 H 159/79 H Pulse Oximetry 96 98 Intake/Output Intake/Output: Intake & Output 02/02/21 02/03/21 02/04/21 02/05/21 23:59 23:59 23:59 23:59 Intake Total 2496 1460 2546 740 Output Total 1999 430 6550 1600 Balance 504 101 -9080 -168 Meds/Results Medications: Active Medications Generic Name Dose Route Start Last Admin Trade Name Freq PRN Reason Stop Dose Admin Albuterol 2 puff 02/01/21 14:31 Albuterol Sulfate (*Sp) Aerosol 1 Puff INHALATION Q6HRT PRN Shortness Of Breath Allopurinol 300 mg 02/02/21 09:00 02/05/21 08:14 Allopurinol 300 Mg Tablet PO 300 mg DAILY MARICHUY Administration Amlodipine Besylate 2.5 mg 02/02/21 09:00 02/05/21 08:14 Amlodipine Besylate 2.5 Mg Tablet PO 2.5 mg QAM MARICHUY Administration Apixaban 2.5 mg 02/01/21 17:00 02/05/21 08:14 Apixaban 2.5 Mg Tablet PO 2.5 mg BID MARICHUY Administration Artificial Tears 1 drop 02/01/21 14:42 02/02/21 08:40 Artificial Tears Ophth Soln 15 Ml Bottle EACH EYE 1 drop TID PRN Administration Dry Eyes Aspirin 81 mg 02/02/21 09:00 02/05/21 08:15 Aspirin 81 Mg Chewable Tablet PO 81 mg DAILY MARICHUY Administration Atorvastatin Calcium 40 mg 02/01/21 21:00 02/04/21 21:17 Atorvastatin 40 Mg Tablet PO 40 mg HS MARICHUY Administration Brimonidine Tartrate 1 drop 02/01/21 17:00 02/05/21 12:24 Brimonidine Tartrate 0.2% Op Soln 5 Ml Btl EACH EYE 1 drop TID MARICHUY Administratio
[2021-02-05] MEDS: valACYclovir HCL 500 MG TABLET 1000 MG PO (13:39)
--- NOTE | 2021-02-05 14:08 | P.PNNP_ITS ---
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 Olivia) * some recent fluctuations in creatinine due to previous COVID-19 infection (4) Sepsis: Code(s): A41.9 - Sepsis, unspecified organism Status: Acute Assessment and Plan: * resolving/resolved * as evidenced by presentation with altered mental status, hypoglycemia, h ypothermia suspected UTI, and worsening renal function * IV antibiotics as per Infectious Disease * follow culture data (5) Urinary tract infection: Qualifiers: Hematuria presence: without hematuria Urinary tract infection type: acute cystitis Qualified Code(s): N30.00 - Acute cystitis without hematuria Code(s): N39.0 - Urinary tract infection, site not specified Status: Acute Assessment and Plan: * as evidenced by admission UA * urine culture with ESBL Klebsiella * on antibiotics (6) Altered mental status: Qualifiers: Altered mental status type: unspecified Qualified Code(s): R41.82 - Altered mental status, unspecified Code(s): R41.82 - Altered mental status, unspecified Status: Acute Assessment and Plan: * slow improvement noted * due to infection/sepsis/hypoglycemia * follow mentation (7) HTN (hypertension): Qualifiers: Hypertension type: essential hypertension Qualified Code(s): I10 - Essential (primary) hypertension Code(s): I10 - Essential (primary) hypertension Status: Chronic Assessment and Plan: * stable hemodynamics at this time * follow trend (8) Diabetes: Qualifiers: Diabetes mellitus type: type 2 Diabetes mellitus vermin exterminator insulin use: with vermin exterminator use Diabetes mellitus complication status: with neurologic complications Diabetes mellitus complication detail: with autonomic neuropathy Qualified Code(s): E11.43 - Type 2 diabetes mellitus with diabetic autonomic (poly)neuropathy; Z79.4 - detention (current) use of insulin Code(s): E11.9 - Type 2 diabetes mellitus without complications Status: Chronic Assessment and Plan: * follow accuchecks * glycemic control Will continue to follow. Subjective Date/time seen: 02/05/21 14:08 Mentation continues to fluctuate in general; no acute distress but states he has pain all over -- no events overnight or earlier this morning; stable hemodynamics and without fevers. Exam Narrative: General: Elderly male in NAD Heart: normal S1 and S2; no rub Lungs: clear to auscultation Abdomen: soft, nontender, nondistended, positive bowel sounds Extremities: no cyanosis or clubbing; 1+ edema Skin: warm and intact Objective Data Vital Signs V
--- NOTE | 2021-02-05 14:08 | PM.PNNEP ---
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 Olivia) some recent fluctuations in creatinine due to previous COVID-19 infection (4) Sepsis: Code(s): A41.9 - Sepsis, unspecified organism Status: Acute Assessment and Plan: resolving/resolved as evidenced by presentation with altered mental status, hypoglycemia, hypothermia suspected UTI, and worsening renal function IV antibiotics as per Infectious Disease follow culture data (5) Urinary tract infection: Qualifiers: Hematuria presence: without hematuria Urinary tract infection type: acute cystitis Qualified Code(s): N30.00 - Acute cystitis without hematuria Code(s): N39.0 - Urinary tract infection, site not specified Status: Acute Assessment and Plan: as evidenced by admission UA urine culture with ESBL Klebsiella on antibiotics (6) Altered mental status: Qualifiers: Altered mental status type: unspecified Qualified Code(s): R41.82 - Altered mental status, unspecified Code(s): R41.82 - Altered mental status, unspecified Status: Acute Assessment and Plan: slow improvement noted due to infection/sepsis/hypoglycemia follow mentation (7) HTN (hypertension): Qualifiers: Hypertension type: essential hypertension Qualified Code(s): I10 - Essential (primary) hypertension Code(s): I10 - Essential (primary) hypertension Status: Chronic Assessment and Plan: stable hemodynamics at this time follow trend (8) Diabetes: Qualifiers: Diabetes mellitus type: type 2 Diabetes mellitus intermediate project manager insulin use: with intermediate project manager use Diabetes mellitus complication status: with neurologic complications Diabetes mellitus complication detail: with autonomic neuropathy Qualified Code(s): E11.43 - Type 2 diabetes mellitus with diabetic autonomic (poly)neuropathy; Z79.4 - exterminator helper (current) use of insulin Code(s): E11.9 - Type 2 diabetes mellitus without complications Status: Chronic Assessment and Plan: follow accuchecks glycemic control Will continue to follow. Subjective Date/time seen: 02/05/21 14:08 Mentation continues to fluctuate in general; no acute distress but states he has pain all over -- no events overnight or earlier this morning; stable hemodynamics and without fevers. Exam Narrative: General: Elderly male in NAD Heart: normal S1 and S2; no rub Lungs: clear to auscultation Abdomen: soft, nontender, nondistended, positive bowel sounds Extremities: no cyanosis or clubbing; 1+ edema Skin: warm and intact Objective Data Vital Signs Vital Signs: Vital Signs Temp Pulse Resp BP Pulse Ox 02/05/21 11:52 36.9 C 81 159/79 H 98 02/05/21 08:15 98 02/05/21 06:17 36.4 C L 93 18 174/81 H 96 02/04/21 21:44 36.5 C 90 20 160/80 H 99 02/04/21 21:17 90 Intake/Output Intake/Output: Intake & Output 02/02/21 02/03/21 02/04/21 02/05/21 23:59 23:59 23:59 23:59 Intake Total 2496 1460 2546 740 Output Total 1999 143 3550 1600 Balance 496 760 -1004 -860 Meds/Results Medic
[2021-02-05] MEDS: ERTAPENEM SODIUM 0.5 GM in SODIUM CHLORIDE 0.9% IV 50 ML IVPB (14:34)
--- NOTE | 2021-02-05 16:01 | PM.IMPN ---
Progress Note: A&P Assessment and Plan (1) Sepsis: Code(s): A41.9 - Sepsis, unspecified organism Status: Acute Assessment and Plan: Patient with history of kidney transplant in 2007 originally presented with altered mental status hypoglycemia, UA reflective of UTI -body temperature have stabilized, off Karina Hugger -hypoglycemia has resolved, patient is off D10 infusion -02/01/2021 blood cultures positive for Gram-positive cocci in 1/2 bottles. -02/03/2021 urine cultures Klebsiella which is ESBL (2) Acute UTI: Code(s): N39.0 - Urinary tract infection, site not specified Status: Resolved Assessment and Plan: Continue ertapenem and vancomycin as per ID recommendation for total of 10 days -follow-up blood culture which is growing Gram-positive cocci with speciation pending in 1 bottle. Will discontinue vancomycin if it is not Staph aureus and suggestive of any contamination. (3) Acute metabolic encephalopathy: Code(s): G93.41 - Metabolic encephalopathy Status: Acute Assessment and Plan: RESOLVED -patient is awake, alert, oriented x3 at this time Acute encephalopathy likely related to infection, sepsis, hypoglycemia, hypotensive -CT scan of the brain did not show any acute intracranial abnormality He was awake and alert at the time of my evaluation but later nurse has reported him to be lethargic and sleepy. ABG was performed which did not show any acute hypercarbic respiratory failure. (4) Hypoglycemia: Code(s): E16.2 - Hypoglycemia, unspecified Status: Acute Assessment and Plan: RESOLVED Likely related to insulin aspart and glargine that he takes at the rehab center -possible due to infection, decreased p.o. intake, hypovolemia -encourage oral intake. (5) Shingles: Code(s): B02.9 - Zoster without complications Status: Acute Assessment and Plan: Improving. Will switch IV acyclovir to p.o. valacyclovir as he does not seem to be any disseminated herpetic infection. (6) Chronic kidney disease, stage IV (severe): Code(s): N18.4 - Chronic kidney disease, stage 4 (severe) Status: Chronic Assessment and Plan: Stage 4 chronic kidney disease patient is status post renal transplant -nephrology following and their recommendations appreciated. -baseline kidney function unknown. The old records from [facility] reviewed with the at the bedside; creatinine was 2.8 in September 2020. -patient follows Dr. Olivia at [facility] -confer antirejection regimen with Dr. Olivia. For now continue prednisone 5 mg p.o. daily and tacrolimus 1 mg p.o. twice a day. Tacrolimus level is pending. -urine output has been adequate. Will continue to monitor renal function, electrolytes and urine output (7) Afib: Code(s): I48.91 - Unspecified atrial fibrillation Status: Chronic Assessment and Plan: Patient has history of AFib currently rate controlled -continue carvedilol and Eliquis Follow for any signs of bleeding (8) Parkinson's disease: Code(s): G20 - Parkinson's disease Status: Chronic Assessment and Plan: Continue carbidopa and levodopa (9) Renal transplant recipient: Code(s): Z94.0 - Kidney transplant status Status: Chronic Assessment and Plan: Continue prednisone and tacrolimus 1 mg p.o. b.i.d.. Tacrolimus level is pending. (10) Diabetes: Qualifiers: Diabetes mellitus type: type 2 Diabetes mellitus manager intermediate insulin use: with snf use Diabetes mellitus complication status: with neurologic complications Diabetes mellitus complication detail: with autonomic neuropathy Qualified Code(s): E11.43 - Type 2 diabetes mellitus with diabetic autonomic (poly)neuropathy; Z79.4 - penitentiary (current) use of insulin Code(s): E11.9 - Type 2 diabetes mellitus without complications Status: Chronic Assessment and Plan: Continue to monitor fingerstick sugar. Aj
[2021-02-05 16:34] LABS: Glucose Point of Care 257 mg/dl (65-105)
[2021-02-05] MEDS: LATANOPROST 0.005% OP SOLN 2.5 ML BTL 1 DROP EACH EYE (20:40)
[2021-02-05] MEDS: rOPINIRole HCL 0.125 MG TABLET PO (20:40)
[2021-02-05] MEDS: TAMSULOSIN HCL 0.4 MG CAPSULE PO (20:41)
[2021-02-05] MEDS: ATORVASTATIN 40 MG TABLET PO (20:41)
[2021-02-05] MEDS: VENLAFAXINE HCL XR 75 MG CAP.ER.24H PO (20:41)
[2021-02-05 21:27] LABS: Glucose Point of Care 291 mg/dl (65-105)
[2021-02-06 05:44] VITALS: BP 168/72; PULSE 93; RESP 18; TEMP 36.7; O2SAT 98
[2021-02-06 07:12] LABS: Albumin Level 2.5 g/dL (3.5-5.1); Anion Gap 6 mmol/L (8-16); Blood Urea Nitrogen 46 mg/dL (9-20); Calcium 8.1 mg/dL (8.4-10.2); Carbon Dioxide 22 mmol/L (22-30); Chloride 103 mmol/L (98-107); Estimated CRCL calculation 27 ml/min; Estimated Glomerular Filt Rate 24; Glucose 301 mg/dL (65-110); Phosphorus 3.6 mg/dL (2.5-4.5); Potassium 4.9 mmol/L (3.4-5.0); Sodium 131 mmol/L (137-145)
[2021-02-06] MEDS: PYRIDOXINE HCL 50 MG TABLET 100 MG PO (08:00)
[2021-02-06] MEDS: FERROUS SULFATE 324 MG TABLET PO (08:00)
[2021-02-06] MEDS: DOCUSATE SODIUM 100 MG CAPSULE PO ×2 (08:00→16:25)
[2021-02-06] MEDS: SODIUM BICARBONATE TAB 650 MG TABLET 1300 MG PO ×2 (08:00→16:25)
[2021-02-06] MEDS: PANTOPRAZOLE 40 MG TABLET PO (08:00)
[2021-02-06 08:01] VITALS: PULSE 96
[2021-02-06] MEDS: hydrALAZINE HCL 50 MG TABLET 100 MG PO ×3 (08:01→16:25)
[2021-02-06] MEDS: GABAPENTIN 100 MG CAPSULE PO (08:01)
[2021-02-06] MEDS: carvediloL 12.5 MG TABLET PO ×2 (08:01→20:57)
[2021-02-06] MEDS: ISOSORBIDE DINITRATE 20 MG TABLET PO ×3 (08:01→16:25)
[2021-02-06] MEDS: APIXABAN 2.5 MG TABLET PO ×2 (08:02→16:25)
[2021-02-06] MEDS: BRIMONIDINE TARTRATE 0.2% OP SOLN 5 ML BTL 1 DROP EACH EYE ×3 (08:02→16:25)
[2021-02-06] MEDS: allopurinoL 300 MG TABLET PO (08:02)
[2021-02-06] MEDS: CARBAMIDE PEROXIDE 6.5% OT SOLN 15 ML BTL 5 DROP EACH EAR ×2 (08:02→16:25)
[2021-02-06] MEDS: VITAMIN B CMPLX/VIT C/FOLIC AC 1 CAPSULE 1 CAP PO (08:02)
[2021-02-06] MEDS: predniSONE 5 MG TABLET PO (08:02)
[2021-02-06] MEDS: ASPIRIN 81 MG CHEWABLE TABLET PO (08:02)
[2021-02-06] MEDS: CARBIDOPA/LEVODOPA 25/250 MG TABLET 1 TABLET PO ×2 (08:02→16:25)
[2021-02-06] MEDS: SILVER SULFADIAZINE 1% CR 50 GM JAR (*BKC) 1 APPLIC TOPICAL ×2 (08:04→20:58)
[2021-02-06 08:17] LABS: Glucose Point of Care 285 mg/dl (65-105)
[2021-02-06] MEDS: INSULIN ASPART (*BKC) 100 UNITS/ML SUB-Q ×4 (08:17→16:53)
[2021-02-06] MEDS: amLODIPine BESYLATE 5 MG TABLET PO (09:03)
--- NOTE | 2021-02-06 10:11 | WPDUROPN2 ---
Progress Note: A&P Additional Plan 75M history of renal transplant admitted with ESBL UTI, elevated SCr and hydronephrosis of transplant kidney. Renal US tomorrow. Hopefully, hydronephrosis has resolved. Likely home tomorrow with catheter pending recs from ID. Follow up with transplant at [facility] next available, patient's has been working on securing an appt. Subjective Subjective Date/Time Seen: 02/06/21 10:11 Interval history: NAEO, patient reports he feels better than yesterday, SCr downtrended to 2.6 mg/dL. Exam Const: General: cooperative, healthy appearing, comfortable and no acute distress HENMT: Head: normal to inspection Face and sinus: normal facial exam Mouth: Yes Normal oral and palatal mucosa present Eyes: General: appearance normal, both eyes and all related structures Resp: Effort & Inspection: normal respiratory effort, able to speak in complete sentences, normal respiratory pattern, no audible wheezes and not labored Cardio: Jugular venous distension: no JVD Rate: regular rate Rhythm: regular rhythm GI: Inspection: normal to inspection Urinary Catheter: Urinary Catheter: patent and draining and urine clear Objective Data Vital Signs Vital Signs: Vital Signs - 24 hr 02/05/21 11:52 02/05/21 14:30 02/05/21 19:58 Temperature 98.5 F 97.9 F Pulse Rate 81 77 82 Respiratory Rate 18 18 Blood Pressure 159/79 H 136/66 Pulse Oximetry 98 99 98 02/05/21 20:40 02/05/21 21:52 02/06/21 05:44 Temperature 98.1 F 98.1 F Pulse Rate 82 88 93 Respiratory Rate 18 18 Blood Pressure 145/71 H 168/72 H Pulse Oximetry 99 98 02/06/21 08:01 Temperature Pulse Rate 96 Respiratory Rate Blood Pressure Pulse Oximetry Intake/Output Intake/Output: Intake & Output 02/03/21 02/04/21 02/05/21 02/06/21 23:59 23:59 23:59 23:59 Intake Total 1460 2546 1560 200 Output Total 700 3550 2425 1000 Balance 760 -1004 -865 -800 Meds/Results Medications: Active Medications Generic Name Dose Route Start Last Admin Trade Name Freq PRN Reason Stop Dose Admin Albuterol 2 puff 02/01/21 14:31 Albuterol Sulfate (*Sp) Aerosol 1 Puff INHALATION Q6HRT PRN Shortness Of Breath Allopurinol 300 mg 02/02/21 09:00 02/06/21 08:02 Allopurinol 300 Mg Tablet PO 300 mg DAILY MARICHUY Administration Amlodipine Besylate 5 mg 02/06/21 09:00 02/06/21 09:03 Amlodipine Besylate 5 Mg Tablet PO 5 mg QAM MARICHUY Administration Apixaban 2.5 mg 02/01/21 17:00 02/06/21 08:02 Apixaban 2.5 Mg Tablet PO 2.5 mg BID MARICHUY Administration Artificial Tears 1 drop 02/01/21 14:42 02/02/21 08:40 Artificial Tears Ophth Soln 15 Ml Bottle EACH EYE 1 drop TID PRN Administration Dry Eyes Aspirin 81 mg 02/02/21 09:00 02/06/21 08:02 Aspirin 81 Mg Chewable Tablet PO 81 mg DAILY MARICHUY Administration Atorvastatin Calcium 40 mg 02/01/21 21:00 02/05/21 20:41 Atorvastatin 40 Mg Tablet PO 40 mg HS MARICHUY Administration Brimonidine Tartrate 1 drop 02/01/21 17:00 02/06/21 08:02 Brimonidine Tartrate 0.2% Op Soln 5 Ml Btl EACH EYE 1 drop TID MARICHUY Administration Calcitriol 0.5 mcg 02/02/21 09:00 02/04/21 08:02 Calcitriol 0.25 Mcg Capsule PO 0.5 mcg [id number] MARICHUY Administration Carbamide Peroxide 5 drop 02/01/21 17:00 02/06/21 08:02 Carbamide Peroxide 6.5% Ot Soln 15 Ml Btl EACH EAR 5 drop BID MARICHUY Administration Carbidopa/Levodopa 1 tablet 02/01/21 17:00 02/06/21 08:02 Carbidopa/Levodopa 25/250 Mg Tablet PO 1 tablet BID MARICHUY Administration Carbidopa/Levodopa 1 tablet 02/01/21 23:00 02/05/21 22:45 Carbidopa/Levodopa 25/100 Mg Cr Tablet PO 1 tablet Q12H MARICHUY Administration Carvedilol 12.5 mg 02/01/21 21:00 02/06/21 08:01 Carvedilol 12.5 Mg Tablet PO 12.5 mg Q12H MARICHUY Administration Dextrose 12.5 gm 02/02/21 16:58 Dextrose 50% 25 Gm/50 Ml Syringe IV PUSH PRN PRN Hypoglycemia Protocol Vinnie Johnson
[2021-02-06] MEDS: CARBIDOPA/LEVODOPA 25/100 MG CR TABLET 1 TABLET PO ×2 (10:21→23:02)
[2021-02-06 12:14] VITALS: BP 153/78; PULSE 87
[2021-02-06 12:21] LABS: Glucose Point of Care 295 mg/dl (65-105)
--- NOTE | 2021-02-06 12:57 | PM.IMPN ---
Progress Note: A&P Assessment and Plan (1) Sepsis: Code(s): A41.9 - Sepsis, unspecified organism Status: Acute Assessment and Plan: Patient with history of kidney transplant in 2007 originally presented with altered mental status hypoglycemia, UA reflective of UTI -body temperature have stabilized, off Karina Hugger -hypoglycemia has resolved, patient is off D10 infusion -02/01/2021 blood cultures positive for Gram-positive cocci in 1/2 bottles. -02/03/2021 urine cultures Klebsiella which is ESBL (2) Acute UTI: Code(s): N39.0 - Urinary tract infection, site not specified Status: Resolved Assessment and Plan: Continue ertapenem and vancomycin as per ID recommendation for total of 10 days -follow blood culture which is growing Gram-positive cocci with speciation pending in 1 bottle. Will discontinue vancomycin if it is not Staph aureus and suggestive of any contamination. (3) Acute metabolic encephalopathy: Code(s): G93.41 - Metabolic encephalopathy Status: Acute Assessment and Plan: RESOLVED -patient is awake, alert, oriented x3 at this time Acute encephalopathy likely related to infection, sepsis, hypoglycemia, hypotensive -CT scan of the brain did not show any acute intracranial abnormality He was awake and alert at the time of my evaluation. He was found lethargic and sleepy yesterday but that has improved since without any intervention. ABG did not show any evidence of hypercarbic respiratory failure. (4) Hypoglycemia: Code(s): E16.2 - Hypoglycemia, unspecified Status: Acute Assessment and Plan: RESOLVED Likely related to insulin aspart and glargine that he takes at the rehab center -possible due to infection, decreased p.o. intake, hypovolemia -encourage oral intake. (5) Shingles: Code(s): B02.9 - Zoster without complications Status: Acute Assessment and Plan: Improving. Have switched IV acyclovir to p.o. valacyclovir as he does not seem to be any disseminated herpetic infection. He can be continued on it for further 5-7 days and then can be stopped. His rash on his right buttock is not very impressive. (6) Chronic kidney disease, stage IV (severe): Code(s): N18.4 - Chronic kidney disease, stage 4 (severe) Status: Chronic Assessment and Plan: Stage 4 chronic kidney disease patient is status post renal transplant -nephrology following and their recommendations appreciated. -baseline kidney function unknown. creatinine was 2.8 in September 2020. -patient follows Dr. Olivia at [facility] and will follow with him after discharge. -confer antirejection regimen with Dr. Olivia. For now continue prednisone 5 mg p.o. daily and tacrolimus 1 mg p.o. twice a day. Tacrolimus level from 02/04 is pending. -urine output has been adequate. Will continue to monitor renal function, electrolytes and urine output (7) Afib: Code(s): I48.91 - Unspecified atrial fibrillation Status: Chronic Assessment and Plan: Patient has history of AFib currently rate controlled -continue carvedilol and Eliquis Follow for any signs of bleeding (8) Parkinson's disease: Code(s): G20 - Parkinson's disease Status: Chronic Assessment and Plan: Continue carbidopa and levodopa (9) Renal transplant recipient: Code(s): Z94.0 - Kidney transplant status Status: Chronic Assessment and Plan: Continue prednisone and tacrolimus 1 mg p.o. b.i.d.. Tacrolimus level from 02/04 is pending. (10) Diabetes: Qualifiers: Diabetes mellitus type: type 2 Diabetes mellitus shelter insulin use: with shelter use Diabetes mellitus complication status: with neurologic complications Diabetes mellitus complication detail: with autonomic neuropathy Qualified Code(s): E11.43 - Type 2 diabetes mellitus with diabetic autonomic (poly)neuropathy; Z79.4 - meterman (current) use of insulin Code(s): E
--- NOTE | 2021-02-06 13:59 | P.PNNP_ITS ---
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 Olivia) * some recent fluctuations in creatinine due to previous COVID-19 infection (4) Sepsis: Code(s): A41.9 - Sepsis, unspecified organism Status: Acute Assessment and Plan: * resolving/resolved * as evidenced by presentation with altered mental status, hypoglycemia, h ypothermia suspected UTI, and worsening renal function * IV antibiotics as per Infectious Disease * follow culture data (5) Urinary tract infection: Qualifiers: Hematuria presence: without hematuria Urinary tract infection type: acute cystitis Qualified Code(s): N30.00 - Acute cystitis without hematuria Code(s): N39.0 - Urinary tract infection, site not specified Status: Acute Assessment and Plan: * as evidenced by admission UA * urine culture with ESBL Klebsiella * on antibiotics (6) Altered mental status: Qualifiers: Altered mental status type: unspecified Qualified Code(s): R41.82 - Altered mental status, unspecified Code(s): R41.82 - Altered mental status, unspecified Status: Acute Assessment and Plan: * slow improvement noted * due to infection/sepsis/hypoglycemia * follow mentation (7) HTN (hypertension): Qualifiers: Hypertension type: essential hypertension Qualified Code(s): I10 - Essential (primary) hypertension Code(s): I10 - Essential (primary) hypertension Status: Chronic Assessment and Plan: * stable hemodynamics at this time * follow trend (8) Diabetes: Qualifiers: Diabetes mellitus type: type 2 Diabetes mellitus 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 Subjective Date/time seen: 02/06/21 13:59 Appears to be doing reasonably well; some issues with fluctuating mentation but mental status seems back to baseline; no other acute complaints voiced; no issues/events overnight or earlier this morning. Exam Narrative: General: Elderly male in NAD Heart: normal S1 and S2; no rub Lungs: clear to auscultation Abdomen: soft, nontender, nondistended, positive bowel sounds Extremities: no cyanosis or clubbing; 1+ edema Skin: no rash Objective Data Vital Signs
--- NOTE | 2021-02-06 13:59 | PM.PNNEP ---
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 Olivia) some recent fluctuations in creatinine due to previous COVID-19 infection (4) Sepsis: Code(s): A41.9 - Sepsis, unspecified organism Status: Acute Assessment and Plan: resolving/resolved as evidenced by presentation with altered mental status, hypoglycemia, hypothermia suspected UTI, and worsening renal function IV antibiotics as per Infectious Disease follow culture data (5) Urinary tract infection: Qualifiers: Hematuria presence: without hematuria Urinary tract infection type: acute cystitis Qualified Code(s): N30.00 - Acute cystitis without hematuria Code(s): N39.0 - Urinary tract infection, site not specified Status: Acute Assessment and Plan: as evidenced by admission UA urine culture with ESBL Klebsiella on antibiotics (6) Altered mental status: Qualifiers: Altered mental status type: unspecified Qualified Code(s): R41.82 - Altered mental status, unspecified Code(s): R41.82 - Altered mental status, unspecified Status: Acute Assessment and Plan: slow improvement noted due to infection/sepsis/hypoglycemia follow mentation (7) HTN (hypertension): Qualifiers: Hypertension type: essential hypertension Qualified Code(s): I10 - Essential (primary) hypertension Code(s): I10 - Essential (primary) hypertension Status: Chronic Assessment and Plan: stable hemodynamics at this time follow trend (8) Diabetes: Qualifiers: Diabetes mellitus type: type 2 Diabetes mellitus rn long term care insulin use: with rn long term care use Diabetes mellitus complication status: with neurologic complications Diabetes mellitus complication detail: with autonomic neuropathy Qualified Code(s): E11.43 - Type 2 diabetes mellitus with diabetic autonomic (poly)neuropathy; Z79.4 - long term acute care registered nurse (current) use of insulin Code(s): E11.9 - Type 2 diabetes mellitus without complications Status: Chronic Assessment and Plan: follow accuchecks glycemic control Will continue to follow. Subjective Date/time seen: 02/06/21 13:59 Appears to be doing reasonably well; some issues with fluctuating mentation but mental status seems back to baseline; no other acute complaints voiced; no issues/events overnight or earlier this morning. Exam Narrative: General: Elderly male in NAD Heart: normal S1 and S2; no rub Lungs: clear to auscultation Abdomen: soft, nontender, nondistended, positive bowel sounds Extremities: no cyanosis or clubbing; 1+ edema Skin: no rash Objective Data Vital Signs Vital Signs: Vital Signs Temp Pulse Resp BP Pulse Ox 02/06/21 12:14 87 153/78 H 02/06/21 08:01 96 02/06/21 05:44 36.7 C 93 18 168/72 H 98 02/05/21 21:52 36.7 C 88 18 145/71 H 99 02/05/21 20:40 82 02/05/21 19:58 82 18 98 Intake/Output Intake/Output: Intake & Output 02/03/21 02/04/21 02/05/21 02/06/21 23:59 23:59 23:59 23:59 Intake Total 1460 2546 1560 510 Output Total 700 3550 2425 1000 Balance 282 -[phone] -648
[2021-02-06] MEDS: valACYclovir HCL 500 MG TABLET 1000 MG PO (14:00)
[2021-02-06] MEDS: ERTAPENEM SODIUM 0.5 GM in SODIUM CHLORIDE 0.9% IV 50 ML IVPB (14:00)
[2021-02-06 14:10] VITALS: BP 112/56; PULSE 80; RESP 16; TEMP 36.4; O2SAT 100
[2021-02-06 16:42] LABS: Glucose Point of Care 345 mg/dl (65-105)
[2021-02-06] MEDS: LATANOPROST 0.005% OP SOLN 2.5 ML BTL 1 DROP EACH EYE (20:56)
[2021-02-06] MEDS: INSULIN GLARGINE (*BKC) 100 UNITS/ML 12 UNITS SUB-Q (20:56)
[2021-02-06 20:57] VITALS: PULSE 85
[2021-02-06] MEDS: VENLAFAXINE HCL XR 75 MG CAP.ER.24H PO (20:57)
[2021-02-06] MEDS: TAMSULOSIN HCL 0.4 MG CAPSULE PO (20:57)
[2021-02-06] MEDS: ATORVASTATIN 40 MG TABLET PO (20:57)
[2021-02-06] MEDS: rOPINIRole HCL 0.125 MG TABLET PO (20:58)
[2021-02-06 21:29] LABS: Glucose Point of Care 324 mg/dl (65-105)
[2021-02-06 22:00] VITALS: BP 151/65; PULSE 85; RESP 20; TEMP 36.9; O2SAT 99
[2021-02-07 06:00] VITALS: BP 164/79; PULSE 91; RESP 21; TEMP 36.6; O2SAT 100
[2021-02-07 06:00] LABS: Basophils Percent Auto 0.6 % (0.2-1.2); Eosinophils Absolute Auto 0.1 K/mm3 (0-0.3); Eosinophils Percent Auto 1.5 % (0-4.4); Hematocrit 29.6 % (42.0-52.0); Hemoglobin 9.8 g/dL (14.0-18.0); Immature Granulocyte Absolute 0.07 K/mm3 (0.00-0.031); Lymphocytes Absolute Auto 3.36 K/mm3 (0.9-3.2); Lymphocytes Percent Auto 47.2 % (18.3-44.2); Mean Corpuscular HGB Conc 33.1 g/dl (32-36); Mean Corpuscular Hemoglobin 30.5 pg (26-34); Mean Corpuscular Volume 92.2 fl (80-100); Mean Platelet Volume 10.9 fl (7.4-10.4); Monocytes Absolute Auto 0.5 K/mm3 (0.1-0.6); Monocytes Percent Auto 6.9 % (2.6-8.5); Neutrophils Absolute Auto 3.1 K/mm3 (1.3-6.7); Neutrophils Percent Auto 42.8 % (45.5-73.1); Platelet Count Result 136 k/mm3 (150-375); Red Blood Count 3.21 M/mm3 (4.6-6.20); White Blood Count 7.1 K/mm3 (4.5-10.0)
[2021-02-07 06:07] LABS: Albumin Level 2.6 g/dL (3.5-5.1); Anion Gap 6 mmol/L (8-16); Blood Urea Nitrogen 42 mg/dL (9-20); Calcium 8.3 mg/dL (8.4-10.2); Carbon Dioxide 23 mmol/L (22-30); Chloride 104 mmol/L (98-107); Estimated CRCL calculation 27 ml/min; Estimated Glomerular Filt Rate 24; Glucose 234 mg/dL (65-110); Magnesium 1.7 mg/dL (1.6-2.3); Phosphorus 3.7 mg/dL (2.5-4.5); Potassium 4.7 mmol/L (3.4-5.0); Sodium 133 mmol/L (137-145)
[2021-02-07 07:54] LABS: Glucose Point of Care 202 mg/dl (65-105)
[2021-02-07] MEDS: INSULIN ASPART (*BKC) 100 UNITS/ML SUB-Q ×5 (08:21→16:51)
[2021-02-07] MEDS: DOCUSATE SODIUM 100 MG CAPSULE PO ×2 (08:23→16:49)
[2021-02-07] MEDS: VITAMIN B CMPLX/VIT C/FOLIC AC 1 CAPSULE 1 CAP PO (08:23)
[2021-02-07] MEDS: hydrALAZINE HCL 50 MG TABLET 100 MG PO ×3 (08:23→16:48)
[2021-02-07] MEDS: ASPIRIN 81 MG CHEWABLE TABLET PO (08:23)
[2021-02-07] MEDS: calcitrioL 0.25 MCG CAPSULE 0.5 MCG PO (08:23)
[2021-02-07 08:24] VITALS: PULSE 91
[2021-02-07] MEDS: APIXABAN 2.5 MG TABLET PO ×2 (08:24→16:48)
[2021-02-07] MEDS: SODIUM BICARBONATE TAB 650 MG TABLET 1300 MG PO ×2 (08:24→16:49)
[2021-02-07] MEDS: PYRIDOXINE HCL 50 MG TABLET 100 MG PO (08:24)
[2021-02-07] MEDS: allopurinoL 300 MG TABLET PO (08:24)
[2021-02-07] MEDS: GABAPENTIN 100 MG CAPSULE PO (08:24)
[2021-02-07] MEDS: amLODIPine BESYLATE 5 MG TABLET PO (08:24)
[2021-02-07] MEDS: predniSONE 5 MG TABLET PO (08:24)
[2021-02-07] MEDS: FERROUS SULFATE 324 MG TABLET PO (08:24)
[2021-02-07] MEDS: PANTOPRAZOLE 40 MG TABLET PO (08:24)
[2021-02-07] MEDS: carvediloL 12.5 MG TABLET PO ×2 (08:24→20:48)
[2021-02-07] MEDS: CARBAMIDE PEROXIDE 6.5% OT SOLN 15 ML BTL 5 DROP EACH EAR ×2 (08:25→16:49)
[2021-02-07] MEDS: CARBIDOPA/LEVODOPA 25/250 MG TABLET 1 TABLET PO ×2 (08:25→16:48)
[2021-02-07] MEDS: ISOSORBIDE DINITRATE 20 MG TABLET PO ×3 (08:25→16:49)
[2021-02-07] MEDS: SILVER SULFADIAZINE 1% CR 50 GM JAR (*BKC) 1 APPLIC TOPICAL ×2 (08:26→20:50)
[2021-02-07] MEDS: BRIMONIDINE TARTRATE 0.2% OP SOLN 5 ML BTL 1 DROP EACH EYE ×3 (08:26→16:49)
--- NOTE | 2021-02-07 10:31 | PM.IMPN ---
Progress Note: A&P Assessment and Plan (1) Sepsis: Code(s): A41.9 - Sepsis, unspecified organism Status: Acute Assessment and Plan: Patient with history of kidney transplant in 2007 originally presented with altered mental status hypoglycemia, UA reflective of UTI -body temperature have stabilized, off Karina Hugger -hypoglycemia has resolved, patient is off D10 infusion -02/01/2021 blood cultures positive for Gram-positive cocci in 1/2 bottles. -02/03/2021 urine cultures Klebsiella which is ESBL (2) Acute UTI: Code(s): N39.0 - Urinary tract infection, site not specified Status: Resolved Assessment and Plan: Continue ertapenem per ID recommendation for total of 10 days -blood culture suggestive of any contamination. Stopped vancomycin today (02/07) (3) Acute metabolic encephalopathy: Code(s): G93.41 - Metabolic encephalopathy Status: Acute Assessment and Plan: RESOLVED -patient is awake, alert, oriented x3 at this time Acute encephalopathy likely related to infection, sepsis, hypoglycemia, hypotensive -CT scan of the brain did not show any acute intracranial abnormality He was awake and alert at the time of my evaluation. He was found lethargic and sleepy yesterday but that has improved since without any intervention. ABG did not show any evidence of hypercarbic respiratory failure. (4) Hypoglycemia: Code(s): E16.2 - Hypoglycemia, unspecified Status: Acute Assessment and Plan: RESOLVED Likely related to insulin aspart and glargine that he takes at the rehab center -possible due to infection, decreased p.o. intake, hypovolemia -encourage oral intake. (5) Shingles: Code(s): B02.9 - Zoster without complications Status: Acute Assessment and Plan: Improving. Have switched IV acyclovir to p.o. valacyclovir as he does not seem to be any disseminated herpetic infection. He can be continued on it for further 5-7 days and then can be stopped. His rash on his right buttock is not very impressive. (6) Chronic kidney disease, stage IV (severe): Code(s): N18.4 - Chronic kidney disease, stage 4 (severe) Status: Chronic Assessment and Plan: Stage 4 chronic kidney disease patient is status post renal transplant -nephrology following and their recommendations appreciated. -baseline kidney function unknown. Creatinine was 2.8 in September 2020. -patient follows Dr. Olivia at [facility] and will follow with him after discharge. -confer antirejection regimen with Dr. Olivia. For now continue prednisone 5 mg p.o. daily and tacrolimus 1 mg p.o. twice a day. Tacrolimus level from 02/04 is pending. -urine output has been adequate. Will continue to monitor renal function, electrolytes and urine output (7) Afib: Code(s): I48.91 - Unspecified atrial fibrillation Status: Chronic Assessment and Plan: Patient has history of AFib currently rate controlled -continue carvedilol and Eliquis Follow for any signs of bleeding (8) Parkinson's disease: Code(s): G20 - Parkinson's disease Status: Chronic Assessment and Plan: Continue carbidopa and levodopa (9) Renal transplant recipient: Code(s): Z94.0 - Kidney transplant status Status: Chronic Assessment and Plan: Continue prednisone and tacrolimus 1 mg p.o. b.i.d.. Tacrolimus level from 02/04 is pending. (10) Diabetes: Qualifiers: Diabetes mellitus complication detail: with autonomic neuropathy Diabetes mellitus complication status: with neurologic complications Diabetes mellitus senior care insulin use: with senior care use Diabetes mellitus type: type 2 Qualified Code(s): E11.43 - Type 2 diabetes mellitus with diabetic autonomic (poly)neuropathy; Z79.4 - remote computer terminal operator (current) use of insulin Code(s): E11.9 - Type 2 diabetes mellitus without complications Status: Chronic Assessment and Plan: Continue to rachel
[2021-02-07] MEDS: CARBIDOPA/LEVODOPA 25/100 MG CR TABLET 1 TABLET PO ×2 (11:57→23:15)
[2021-02-07 12:05] LABS: Glucose Point of Care 237 mg/dl (65-105)
[2021-02-07 14:14] VITALS: BP 144/69; PULSE 79; RESP 14; TEMP 36.5; O2SAT 100
[2021-02-07] MEDS: valACYclovir HCL 500 MG TABLET 1000 MG PO (14:43)
[2021-02-07] MEDS: ERTAPENEM SODIUM 0.5 GM in SODIUM CHLORIDE 0.9% IV 50 ML IVPB (14:44)
--- NOTE | 2021-02-07 15:38 | P.PNNP_ITS ---
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 Olivia) * some recent fluctuations in creatinine due to previous COVID-19 infection (4) Sepsis: Code(s): A41.9 - Sepsis, unspecified organism Status: Acute Assessment and Plan: * resolving/resolved * as evidenced by presentation with altered mental status, hypoglycemia, h ypothermia suspected UTI, and worsening renal function * IV antibiotics as per Infectious Disease * follow culture data (5) Urinary tract infection: Qualifiers: Hematuria presence: without hematuria Urinary tract infection type: acute cystitis Qualified Code(s): N30.00 - Acute cystitis without hematuria Code(s): N39.0 - Urinary tract infection, site not specified Status: Acute Assessment and Plan: * as evidenced by admission UA * urine culture with ESBL Klebsiella * on antibiotics (6) Altered mental status: Qualifiers: Altered mental status type: unspecified Qualified Code(s): R41.82 - Altered mental status, unspecified Code(s): R41.82 - Altered mental status, unspecified Status: Acute Assessment and Plan: * slow improvement noted * due to infection/sepsis/hypoglycemia * follow mentation (7) HTN (hypertension): Qualifiers: Hypertension type: essential hypertension Qualified Code(s): I10 - Essential (primary) hypertension Code(s): I10 - Essential (primary) hypertension Status: Chronic Assessment and Plan: * stable hemodynamics at this time * follow trend (8) Diabetes: Qualifiers: Diabetes mellitus type: type 2 Diabetes mellitus 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 Subjective Date/time seen: 02/07/21 15:38 He appears to be doing reasonably well at the time of my visit; mentation can sometimes fluctuate but he seems at his baseline currently; no other issues or concerns voiced currently; no events overnight or earlier this morning; no distress noted. Exam Narrative: General: Elderly male in NAD Heart: normal S1 and S2; no rub Lungs: clear to auscultation Abdomen: soft, nontender, nondistended, positive bowel sounds Extremities: no cyanosis or clubbing; 1+ edema Skin: no nodule
--- NOTE | 2021-02-07 15:38 | PM.PNNEP ---
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 Olivia) some recent fluctuations in creatinine due to previous COVID-19 infection (4) Sepsis: Code(s): A41.9 - Sepsis, unspecified organism Status: Acute Assessment and Plan: resolving/resolved as evidenced by presentation with altered mental status, hypoglycemia, hypothermia suspected UTI, and worsening renal function IV antibiotics as per Infectious Disease follow culture data (5) Urinary tract infection: Qualifiers: Hematuria presence: without hematuria Urinary tract infection type: acute cystitis Qualified Code(s): N30.00 - Acute cystitis without hematuria Code(s): N39.0 - Urinary tract infection, site not specified Status: Acute Assessment and Plan: as evidenced by admission UA urine culture with ESBL Klebsiella on antibiotics (6) Altered mental status: Qualifiers: Altered mental status type: unspecified Qualified Code(s): R41.82 - Altered mental status, unspecified Code(s): R41.82 - Altered mental status, unspecified Status: Acute Assessment and Plan: slow improvement noted due to infection/sepsis/hypoglycemia follow mentation (7) HTN (hypertension): Qualifiers: Hypertension type: essential hypertension Qualified Code(s): I10 - Essential (primary) hypertension Code(s): I10 - Essential (primary) hypertension Status: Chronic Assessment and Plan: stable hemodynamics at this time follow trend (8) Diabetes: Qualifiers: Diabetes mellitus type: type 2 Diabetes mellitus intermodal customer service insulin use: with intermodal customer service use Diabetes mellitus complication status: with neurologic complications Diabetes mellitus complication detail: with autonomic neuropathy Qualified Code(s): E11.43 - Type 2 diabetes mellitus with diabetic autonomic (poly)neuropathy; Z79.4 - intermediate project manager (current) use of insulin Code(s): E11.9 - Type 2 diabetes mellitus without complications Status: Chronic Assessment and Plan: follow accuchecks glycemic control Will continue to follow. Subjective Date/time seen: 02/07/21 15:38 He appears to be doing reasonably well at the time of my visit; mentation can sometimes fluctuate but he seems at his baseline currently; no other issues or concerns voiced currently; no events overnight or earlier this morning; no distress noted. Exam Narrative: General: Elderly male in NAD Heart: normal S1 and S2; no rub Lungs: clear to auscultation Abdomen: soft, nontender, nondistended, positive bowel sounds Extremities: no cyanosis or clubbing; 1+ edema Skin: no nodules Objective Data Vital Signs Vital Signs: Vital Signs Temp Pulse Resp BP Pulse Ox 02/07/21 14:14 36.5 C 79 14 144/69 H 100 02/07/21 08:24 91 02/07/21 06:00 36.6 C 91 21 H 164/79 H 100 02/06/21 22:00 36.9 C 85 20 151/65 H 99 02/06/21 20:57 85 Intake/Output Intake/Output: Intake & Output 02/04/21 02/05/21 02/06/21 02/07/21 23:59 23:59 23:59 23:59 Intake Total 2546 1560 1690 1150 Output Total 3550 24
[2021-02-07 16:39] LABS: Glucose Point of Care 169 mg/dl (65-105)
[2021-02-07 20:48] VITALS: PULSE 82
[2021-02-07] MEDS: VENLAFAXINE HCL XR 75 MG CAP.ER.24H PO (20:48)
[2021-02-07] MEDS: ATORVASTATIN 40 MG TABLET PO (20:48)
[2021-02-07] MEDS: TAMSULOSIN HCL 0.4 MG CAPSULE PO (20:48)
[2021-02-07] MEDS: rOPINIRole HCL 0.125 MG TABLET PO (20:49)
[2021-02-07] MEDS: INSULIN GLARGINE (*BKC) 100 UNITS/ML 12 UNITS SUB-Q (20:50)
[2021-02-07] MEDS: LATANOPROST 0.005% OP SOLN 2.5 ML BTL 1 DROP EACH EYE (20:50)
[2021-02-07 21:10] LABS: Glucose Point of Care 182 mg/dl (65-105)
[2021-02-07 22:00] VITALS: BP 149/85; PULSE 91; RESP 20; TEMP 36.6; O2SAT 98
[2021-02-08] VITALS (7 sets, daily range): BP systolic 103–157; BP diastolic 60–81; PULSE 72–101; RESP 18–21; TEMP 35.8–36.7; O2SAT 99–100
[2021-02-08 06:04] LABS: Tacrolimus Prograf 6.9 mcg/L
[2021-02-08 06:14] LABS: Albumin Level 2.5 g/dL (3.5-5.1); Anion Gap 6 mmol/L (8-16); Blood Urea Nitrogen 45 mg/dL (9-20); Calcium 8.3 mg/dL (8.4-10.2); Carbon Dioxide 23 mmol/L (22-30); Chloride 102 mmol/L (98-107); Estimated CRCL calculation 26 ml/min; Estimated Glomerular Filt Rate 24; Glucose 199 mg/dL (65-110); Phosphorus 3.8 mg/dL (2.5-4.5); Potassium 4.8 mmol/L (3.4-5.0); Sodium 131 mmol/L (137-145)
[2021-02-08 07:54] LABS: Glucose Point of Care 192 mg/dl (65-105)
[2021-02-08] MEDS: allopurinoL 300 MG TABLET PO (08:37)
[2021-02-08] MEDS: ISOSORBIDE DINITRATE 20 MG TABLET PO ×3 (08:38→16:56)
[2021-02-08] MEDS: FERROUS SULFATE 324 MG TABLET PO (08:38)
[2021-02-08] MEDS: ASPIRIN 81 MG CHEWABLE TABLET PO (08:38)
[2021-02-08] MEDS: hydrALAZINE HCL 50 MG TABLET 100 MG PO ×3 (08:38→16:55)
[2021-02-08] MEDS: CARBIDOPA/LEVODOPA 25/250 MG TABLET 1 TABLET PO ×2 (08:38→16:56)
[2021-02-08] MEDS: predniSONE 5 MG TABLET PO (08:38)
[2021-02-08] MEDS: VITAMIN B CMPLX/VIT C/FOLIC AC 1 CAPSULE 1 CAP PO (08:38)
[2021-02-08] MEDS: PYRIDOXINE HCL 50 MG TABLET 100 MG PO (08:38)
[2021-02-08] MEDS: APIXABAN 2.5 MG TABLET PO ×2 (08:39→16:56)
[2021-02-08] MEDS: amLODIPine BESYLATE 5 MG TABLET PO (08:39)
[2021-02-08] MEDS: BRIMONIDINE TARTRATE 0.2% OP SOLN 5 ML BTL 1 DROP EACH EYE ×3 (08:39→16:56)
[2021-02-08] MEDS: PANTOPRAZOLE 40 MG TABLET PO (08:39)
[2021-02-08] MEDS: CARBAMIDE PEROXIDE 6.5% OT SOLN 15 ML BTL 5 DROP EACH EAR ×2 (08:39→16:56)
[2021-02-08] MEDS: DOCUSATE SODIUM 100 MG CAPSULE PO ×2 (08:39→16:55)
[2021-02-08] MEDS: carvediloL 12.5 MG TABLET PO ×2 (08:39→20:56)
[2021-02-08] MEDS: GABAPENTIN 100 MG CAPSULE PO (08:39)
[2021-02-08] MEDS: SODIUM BICARBONATE TAB 650 MG TABLET 1300 MG PO ×2 (08:39→16:56)
[2021-02-08] MEDS: SILVER SULFADIAZINE 1% CR 50 GM JAR (*BKC) 1 APPLIC TOPICAL ×2 (08:40→20:58)
[2021-02-08] MEDS: INSULIN ASPART (*BKC) 100 UNITS/ML SUB-Q ×5 (08:41→16:57)
--- NOTE | 2021-02-08 08:46 | PCNWS ---
Weekly nutritional screen. Patient is tolerating current diet with adequate intake. No weight loss reported. No nutritional needs at this time.
[2021-02-08 11:59] LABS: Glucose Point of Care 213 mg/dl (65-105)
[2021-02-08] MEDS: CARBIDOPA/LEVODOPA 25/100 MG CR TABLET 1 TABLET PO ×2 (12:37→23:23)
--- NOTE | 2021-02-08 13:02 | WPDUROPN2 ---
Progress Note: A&P Assessment and Plan (1) Hydronephrosis: Code(s): N13.30 - Unspecified hydronephrosis Status: Acute Assessment and Plan: Resolved. (2) Urinary retention: Code(s): R33.9 - Retention of urine, unspecified Status: Acute Assessment and Plan: Cerna was exchanged at the bedside on Sunday without difficulty. His wants him to have a voiding trial before he leaves. He has failed a voiding trial to her understanding, as he went without a catheter in between hospitalizations for 6 weeks and then one was re-inserted this time d/t retention. I instructed her that he may not pass and would require a catheter again with monthly changes. This is likely what caused his infection and hydronephrosis. I explained the importance of emptying his bladder to protect his transplanted kidney and she agrees to replace cerna with monthly changes if he is unable to urinate. Continue Tamsulosin (3) UTI (urinary tract infection): Code(s): N39.0 - Urinary tract infection, site not specified Status: Acute Assessment and Plan: Continue IV antibiotics. Subjective Subjective Date/Time Seen: 02/08/21 13:02 The patient's ED yesterday shows an interval decrease in mild hydronephrosis of the left ureter/kidney which is his transplant kidney. His creatinine s at 2.60, which is his normal baseline and WBC is within normal limits at this time. His is at the bedside today. Review of Systems Cardiovascular: Cardiovascular: Denies chest pain Respiratory: Respiratory: Reports no additional respiratory complaints Gastrointestinal: Gastrointestinal: Denies abdominal pain, Denies nausea and Denies vomiting Genitourinary: Genitourinary: Denies hematuria Exam Resp: Effort & Inspection: normal respiratory effort Cardio: Rate: tachycardic GI: GI Palp: Yes Soft to palpation and No Tenderness to palpation present (GI) : General: Yes no CVA tenderness Urinary Catheter: Urinary Catheter: patent and draining and urine clear Extrem: General: no edema Objective Data Vital Signs Vital Signs: Vital Signs - 24 hr 02/07/21 14:14 02/07/21 20:48 02/07/21 22:00 Temperature 97.7 F 97.8 F Pulse Rate 79 82 91 Respiratory Rate 14 20 Blood Pressure 144/69 H 149/85 H Pulse Oximetry 100 98 02/08/21 06:00 02/08/21 08:39 02/08/21 09:07 Temperature 98.1 F 97 F L Pulse Rate 88 88 101 H Respiratory Rate 21 H 18 Blood Pressure 157/81 H 103/60 Pulse Oximetry 100 100 Intake/Output Intake/Output: Intake & Output 02/05/21 02/06/21 02/07/21 02/08/21 23:59 23:59 23:59 23:59 Intake Total 1560 1690 1880 510 Output Total 2425 1750 6462 600 [facility] -865 -60 -120 -90 Meds/Results Medications: Active Medications Generic Name Dose Route Start Last Admin Trade Name Freq PRN Reason Stop Dose Admin Albuterol 2 puff 02/01/21 14:31 Albuterol Sulfate (*Sp) Aerosol 1 Puff INHALATION Q6HRT PRN Shortness Of Breath Allopurinol 300 mg 02/02/21 09:00 02/08/21 08:37 Allopurinol 300 Mg Tablet PO 300 mg DAILY MARICHUY Administration Amlodipine Besylate 5 mg 02/06/21 09:00 02/08/21 08:39 Amlodipine Besylate 5 Mg Tablet PO 5 mg QAM MARICHUY Administration Apixaban 2.5 mg 02/01/21 17:00 02/08/21 08:39 Apixaban 2.5 Mg Tablet PO 2.5 mg BID MARICHUY Administration Artificial Tears 1 drop 02/01/21 14:42 02/02/21 08:40 Artificial Tears Ophth Soln 15 Ml Bottle EACH EYE 1 drop TID PRN Administration Dry Eyes Aspirin 81 mg 02/02/21 09:00 02/08/21 08:38 Aspirin 81 Mg Chewable Tablet PO 81 mg DAILY MARICHUY Administration Atorvastatin Calcium 40 mg 02/01/21 21:00 02/07/21 20:48 Atorvastatin 40 Mg Tablet PO 40 mg HS MARICHUY Administration Brimonidine Tartrate 1 drop 02/01/21 17:00 02/08/21 12:38 Brimonidine Tartrate 0.2% Op Soln 5 Ml Btl EACH EYE 1 drop TID MARICHUY Administration Calcitriol 0.5 mcg 02/02/21 09:00 1
--- NOTE | 2021-02-08 13:58 | PM.IMPN ---
Progress Note: A&P Assessment and Plan (1) Sepsis: Code(s): A41.9 - Sepsis, unspecified organism Status: Acute Assessment and Plan: Patient with history of kidney transplant in 2007 originally presented with altered mental status hypoglycemia, UA reflective of UTI -body temperature have stabilized, off Karina Hugger -hypoglycemia has resolved, patient is off D10 infusion -02/01/2021 blood cultures positive for Gram-positive cocci in 1/2 bottles. -02/03/2021 urine cultures Klebsiella which is ESBL. Plan for 10 day IV antibiotic, ertapenem, per ID recommendation. Date of completion 01/14/2021. (2) Acute UTI: Code(s): N39.0 - Urinary tract infection, site not specified Status: Resolved Assessment and Plan: Continue ertapenem per ID recommendation for total of 10 days -blood culture suggestive of any contamination. Stopped vancomycin today (02/07) (3) Acute metabolic encephalopathy: Code(s): G93.41 - Metabolic encephalopathy Status: Acute Assessment and Plan: RESOLVED -patient is awake, alert, oriented x3 at this time Acute encephalopathy likely related to infection, sepsis, hypoglycemia, hypotensive -CT scan of the brain did not show any acute intracranial abnormality He was awake and alert at the time of my evaluation. He was found lethargic and sleepy yesterday but that has improved since without any intervention. ABG did not show any evidence of hypercarbic respiratory failure. (4) Hypoglycemia: Code(s): E16.2 - Hypoglycemia, unspecified Status: Acute Assessment and Plan: RESOLVED Likely related to insulin aspart and glargine that he takes at the rehab center -possible due to infection, decreased p.o. intake, hypovolemia -encourage oral intake. (5) Shingles: Code(s): B02.9 - Zoster without complications Status: Acute Assessment and Plan: Improving. Have switched IV acyclovir to p.o. valacyclovir as he does not seem to be any disseminated herpetic infection. He can be continued on it for further 5-7 days and then can be stopped. His rash on his right buttock is not very impressive. (6) Chronic kidney disease, stage IV (severe): Code(s): N18.4 - Chronic kidney disease, stage 4 (severe) Status: Chronic Assessment and Plan: Stage 4 chronic kidney disease patient is status post renal transplant -nephrology following and their recommendations appreciated. -baseline kidney function unknown. Creatinine was 2.8 in September 2020. -patient follows Dr. Olivia at [facility] and will follow with him after discharge. -confer antirejection regimen with Dr. Olivia. For now continue prednisone 5 mg p.o. daily and tacrolimus 1 mg p.o. twice a day. Tacrolimus level from 02/04 is pending. -urine output has been adequate. Will continue to monitor renal function, electrolytes and urine output. -plan for Metz catheter placement for outpatient IV antibiotics. Preserve upper extremity vasculature in any patient who may require renal replacement therapy in their lifetime. Avoid blood draw, peripheral lines in non dominant arm. These is evidence based guidelines (7) Afib: Code(s): I48.91 - Unspecified atrial fibrillation Status: Chronic Assessment and Plan: Patient has history of AFib currently rate controlled -continue carvedilol and Eliquis Follow for any signs of bleeding (8) Parkinson's disease: Code(s): G20 - Parkinson's disease Status: Chronic Assessment and Plan: Continue carbidopa and levodopa (9) Renal transplant recipient: Code(s): Z94.0 - Kidney transplant status Status: Chronic Assessment and Plan: Continue prednisone and tacrolimus 1 mg p.o. b.i.d.. Tacrolimus level from 02/04 is pending. Baseline creatinine unknown. Hemant creatinine 2.5 as of September 2020. 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
--- NOTE | 2021-02-08 14:41 | P.PNNP_ITS ---
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 Olivia) * some recent fluctuations in creatinine due to previous COVID-19 infection (4) Sepsis: Code(s): A41.9 - Sepsis, unspecified organism Status: Acute Assessment and Plan: * resolving/resolved * as evidenced by presentation with altered mental status, hypoglycemia, hypothermia suspected UTI, and worsening renal function * IV antibiotics as per Infectious Disease * follow culture data (5) Urinary tract infection: Qualifiers: Hematuria presence: without hematuria Urinary tract infection type: acute cystitis Qualified Code(s): N30.00 - Acute cystitis without hematuria Code(s): N39.0 - Urinary tract infection, site not specified Status: Acute Assessment and Plan: * as evidenced by admission UA * urine culture with ESBL Klebsiella * on antibiotics as per Infectious Disease (6) Altered mental status: Qualifiers: Altered mental status type: unspecified Qualified Code(s): R41.82 - Altered mental status, unspecified Code(s): R41.82 - Altered mental status, unspecified Status: Acute Assessment and Plan: * slow improvement noted * due to infection/sepsis/hypoglycemia * follow mentation (7) HTN (hypertension): Qualifiers: Hypertension type: essential hypertension Qualified Code(s): I10 - Essential (primary) hypertension Code(s): I10 - Essential (primary) hypertension Status: Chronic Assessment and Plan: * stable hemodynamics at this time * follow trend (8) Diabetes: Qualifiers: Diabetes mellitus type: type 2 Diabetes mellitus meterman insulin use: with detention use Diabetes mellitus complication status: with neurologic complications Diabetes mellitus complication detail: with autonomic neuropathy Qualified Code(s): E11.43 - Type 2 diabetes mellitus with diabetic autonomic (poly)neuropathy; Z79.4 - nursing home (current) use of insulin Code(s): E11.9 - Type 2 diabetes mellitus without complications Status: Chronic Assessment and Plan: * follow accuchecks * glycemic control Will continue to follow. Subjective Date/time seen: 02/08/21 14:41 No new issues or problems to report at this time; feels reasonably well; no issues/events over time; mentation seems stable if not back to his baseline; no apparent distress voiced. Exam Narrative: General: Elderly male in NAD Heart: normal S1 and S2; no rub Lungs: clear to auscultation Abdomen: soft, nontender, nondistended, positive bowel sounds Extremities: no cyanosis or clubbing; 1+ edema Skin: warm and dry Objective Data Vital Signs
--- NOTE | 2021-02-08 14:41 | PM.PNNEP ---
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 Olivia) some recent fluctuations in creatinine due to previous COVID-19 infection (4) Sepsis: Code(s): A41.9 - Sepsis, unspecified organism Status: Acute Assessment and Plan: resolving/resolved as evidenced by presentation with altered mental status, hypoglycemia, hypothermia suspected UTI, and worsening renal function IV antibiotics as per Infectious Disease follow culture data (5) Urinary tract infection: Qualifiers: Hematuria presence: without hematuria Urinary tract infection type: acute cystitis Qualified Code(s): N30.00 - Acute cystitis without hematuria Code(s): N39.0 - Urinary tract infection, site not specified Status: Acute Assessment and Plan: as evidenced by admission UA urine culture with ESBL Klebsiella on antibiotics as per Infectious Disease (6) Altered mental status: Qualifiers: Altered mental status type: unspecified Qualified Code(s): R41.82 - Altered mental status, unspecified Code(s): R41.82 - Altered mental status, unspecified Status: Acute Assessment and Plan: slow improvement noted due to infection/sepsis/hypoglycemia follow mentation (7) HTN (hypertension): Qualifiers: Hypertension type: essential hypertension Qualified Code(s): I10 - Essential (primary) hypertension Code(s): I10 - Essential (primary) hypertension Status: Chronic Assessment and Plan: stable hemodynamics at this time follow trend (8) Diabetes: Qualifiers: Diabetes mellitus type: type 2 Diabetes mellitus 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 Subjective Date/time seen: 02/08/21 14:41 No new issues or problems to report at this time; feels reasonably well; no issues/events over time; mentation seems stable if not back to his baseline; no apparent distress voiced. Exam Narrative: General: Elderly male in NAD Heart: normal S1 and S2; no rub Lungs: clear to auscultation Abdomen: soft, nontender, nondistended, positive bowel sounds Extremities: no cyanosis or clubbing; 1+ edema Skin: warm and dry Objective Data Vital Signs Vital Signs: Vital Signs Temp Pulse Resp BP Pulse Ox 02/08/21 14:00 35.8 C L 72 18 139/66 100 02/08/21 09:07 36.1 C L 101 H 18 103/60 100 02/08/21 08:39 88 02/08/21 06:00 36.7 C 88 21 H 157/81 H 100 02/07/21 22:00 36.6 C 91 20 149/85 H 98 02/07/21 20:48 82 Intake/Output Intake/Output: Intake & Output 02/05/21 02/06/21 02/07/21 02/08/21 23:59 23:59 23:59 23:59 Intake Total 1560 1690 1880 1490 Output Total 2429 1750
[2021-02-08] MEDS: ERTAPENEM SODIUM 0.5 GM in SODIUM CHLORIDE 0.9% IV 50 ML IVPB (15:14)
[2021-02-08] MEDS: valACYclovir HCL 500 MG TABLET 1000 MG PO (15:14)
[2021-02-08 16:32] LABS: Glucose Point of Care 250 mg/dl (65-105)
[2021-02-08] MEDS: TAMSULOSIN HCL 0.4 MG CAPSULE PO (20:55)
[2021-02-08] MEDS: VENLAFAXINE HCL XR 75 MG CAP.ER.24H PO (20:55)
[2021-02-08] MEDS: ATORVASTATIN 40 MG TABLET PO (20:55)
[2021-02-08] MEDS: INSULIN GLARGINE (*BKC) 100 UNITS/ML 15 UNITS SUB-Q (20:59)
[2021-02-08] MEDS: LATANOPROST 0.005% OP SOLN 2.5 ML BTL 1 DROP EACH EYE (20:59)
[2021-02-08] MEDS: rOPINIRole HCL 0.125 MG TABLET PO (20:59)
[2021-02-08 21:17] LABS: Glucose Point of Care 252 mg/dl (65-105)
[2021-02-09 06:00] VITALS: BP 150/73; PULSE 88; RESP 20; TEMP 36.9; O2SAT 99
[2021-02-09 07:50] LABS: Glucose Point of Care 191 mg/dl (65-105)
[2021-02-09] MEDS: hydrALAZINE HCL 50 MG TABLET 100 MG PO ×3 (08:39→16:12)
[2021-02-09] MEDS: ISOSORBIDE DINITRATE 20 MG TABLET PO ×3 (08:39→16:12)
[2021-02-09 08:40] VITALS: PULSE 88
[2021-02-09] MEDS: APIXABAN 2.5 MG TABLET PO ×2 (08:40→16:13)
[2021-02-09] MEDS: VITAMIN B CMPLX/VIT C/FOLIC AC 1 CAPSULE 1 CAP PO (08:40)
[2021-02-09] MEDS: ASPIRIN 81 MG CHEWABLE TABLET PO (08:40)
[2021-02-09] MEDS: PANTOPRAZOLE 40 MG TABLET PO (08:40)
[2021-02-09] MEDS: GABAPENTIN 100 MG CAPSULE PO (08:40)
[2021-02-09] MEDS: DOCUSATE SODIUM 100 MG CAPSULE PO ×2 (08:40→16:12)
[2021-02-09] MEDS: calcitrioL 0.25 MCG CAPSULE 0.5 MCG PO (08:40)
[2021-02-09] MEDS: allopurinoL 300 MG TABLET PO (08:40)
[2021-02-09] MEDS: CARBIDOPA/LEVODOPA 25/250 MG TABLET 1 TABLET PO ×2 (08:40→16:14)
[2021-02-09] MEDS: carvediloL 12.5 MG TABLET PO ×2 (08:40→20:48)
[2021-02-09] MEDS: FERROUS SULFATE 324 MG TABLET PO (08:40)
[2021-02-09] MEDS: PYRIDOXINE HCL 50 MG TABLET 100 MG PO (08:40)
[2021-02-09] MEDS: BRIMONIDINE TARTRATE 0.2% OP SOLN 5 ML BTL 1 DROP EACH EYE ×3 (08:41→16:12)
[2021-02-09] MEDS: predniSONE 5 MG TABLET PO (08:41)
[2021-02-09] MEDS: SILVER SULFADIAZINE 1% CR 50 GM JAR (*BKC) 1 APPLIC TOPICAL ×2 (08:41→21:29)
[2021-02-09] MEDS: amLODIPine BESYLATE 5 MG TABLET PO (08:41)
[2021-02-09] MEDS: CARBAMIDE PEROXIDE 6.5% OT SOLN 15 ML BTL 5 DROP EACH EAR ×2 (08:41→16:12)
[2021-02-09] MEDS: INSULIN ASPART (*BKC) 100 UNITS/ML SUB-Q ×4 (08:42→16:23)
[2021-02-09] MEDS: SODIUM BICARBONATE TAB 650 MG TABLET 1300 MG PO ×2 (08:42→16:12)
[2021-02-09 11:47] LABS: Glucose Point of Care 197 mg/dl (65-105)
[2021-02-09] MEDS: CARBIDOPA/LEVODOPA 25/100 MG CR TABLET 1 TABLET PO ×2 (11:57→23:05)
[2021-02-09 12:30] VITALS: BP 130/65; PULSE 81; RESP 16; TEMP 36.5; O2SAT 98
--- NOTE | 2021-02-09 13:17 | PM.IMPN ---
Progress Note: A&P Assessment and Plan (1) Sepsis: Code(s): A41.9 - Sepsis, unspecified organism Status: Acute Assessment and Plan: Patient with history of kidney transplant in 2007 originally presented with altered mental status hypoglycemia, UA reflective of UTI - -02/01/2021 blood cultures positive for Gram-positive cocci in 1/2 bottles. -02/03/2021 urine cultures Klebsiella which is ESBL. Plan for 10 day IV antibiotic, ertapenem, per ID recommendation. Date of completion 01/14/2021. -02/09/2021 Pt will benefit with PICC line and dc planning (2) Acute UTI: Code(s): N39.0 - Urinary tract infection, site not specified Status: Resolved Assessment and Plan: Continue ertapenem per ID recommendation for total of 10 days ESBL UTI (3) Acute metabolic encephalopathy: Code(s): G93.41 - Metabolic encephalopathy Status: Acute Assessment and Plan: RESOLVED -patient is awake, alert, oriented x3 at this time Acute encephalopathy likely related to infection, sepsis, hypoglycemia, hypotensive -CT scan of the brain did not show any acute intracranial abnormality likely secondary to infection (4) Hypoglycemia: Code(s): E16.2 - Hypoglycemia, unspecified Status: Acute Assessment and Plan: RESOLVED (5) Shingles: Code(s): B02.9 - Zoster without complications Status: Acute Assessment and Plan: Improving. Have switched IV acyclovir to p.o. valacyclovir as he does not seem to be any disseminated herpetic infection. Rash on his right buttock is not very impressive. (6) Chronic kidney disease, stage IV (severe): Code(s): N18.4 - Chronic kidney disease, stage 4 (severe) Status: Chronic Assessment and Plan: Stage 4 chronic kidney disease patient is status post renal transplant -nephrology following and their recommendations appreciated. -baseline kidney function unknown. Creatinine was 2.8 in September 2020. -patient follows Dr. Olivia at [facility] and will follow with him after discharge. -confer antirejection regimen with Dr. Olivia. For now continue prednisone 5 mg p.o. daily and tacrolimus 1 mg p.o. twice a day. Tacrolimus level from 02/04 is pending. -urine output has been adequate. Will continue to monitor renal function, electrolytes and urine output. (7) Afib: Code(s): I48.91 - Unspecified atrial fibrillation Status: Chronic Assessment and Plan: Patient has history of AFib currently rate controlled -continue carvedilol and Eliquis (8) Parkinson's disease: Code(s): G20 - Parkinson's disease Status: Chronic Assessment and Plan: Continue carbidopa and levodopa (9) Renal transplant recipient: Code(s): Z94.0 - Kidney transplant status Status: Chronic Assessment and Plan: Continue prednisone and tacrolimus 1 mg p.o. b.i.d.. Tacrolimus level from 02/04 is pending. Baseline creatinine unknown. Hemant creatinine 2.5 as of September 2020. 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 Insulin sliding scale. (11) HTN (hypertension): Qualifiers: Hypertension type: essential hypertension Qualified Code(s): I10 - Essential (primary) hypertension Code(s): I10 - Essential (primary) hypertension Status: Chronic Assessment and Plan: Bp is 150/73 -continue carvedilol, hydralazine, isosorbide dinitrate at current dose. Subjecti
--- NOTE | 2021-02-09 14:18 | PCOTNOTE ---
Attempted to see patient this pm, however patient was sleeping soundly and appeared to be in a deep sleep at this time. Did not disturb for this reason.
[2021-02-09] MEDS: valACYclovir HCL 500 MG TABLET 1000 MG PO (16:12)
[2021-02-09] MEDS: ERTAPENEM SODIUM 0.5 GM in SODIUM CHLORIDE 0.9% IV 50 ML IVPB (16:14)
[2021-02-09 16:24] LABS: Glucose Point of Care 261 mg/dl (65-105)
--- NOTE | 2021-02-09 16:27 | PM.DS ---
DS: Admitting Diagnosis Discharge Date 02/09/2021 Admitting Diagnosis Fall and confusion DS: Discharge Diagnosis Discharge Diagnosis (1) Sepsis: Code(s): A41.9 - Sepsis, unspecified organism Status: Acute Assessment and Plan: Patient with history of kidney transplant in 2007 originally presented with altered mental status hypoglycemia, UA reflective of UTI -02/01/2021 blood cultures positive for Gram-positive cocci in 1/2 bottles. -02/03/2021 urine cultures Klebsiella which is ESBL. Plan for 10 day IV antibiotic, ertapenem, per ID recommendation. Date of completion 01/14/2021. -02/09/2021 Pt will benefit with PICC line and dc planning today (2) Acute UTI: Code(s): N39.0 - Urinary tract infection, site not specified Status: Resolved Assessment and Plan: Continue ertapenem per ID recommendation for total of 10 days ESBL UTI (3) Acute metabolic encephalopathy: Code(s): G93.41 - Metabolic encephalopathy Status: Acute Assessment and Plan: RESOLVED -patient is awake, alert, oriented x3 at this time Acute encephalopathy likely related to infection, sepsis, hypoglycemia, hypotensive -CT scan of the brain did not show any acute intracranial abnormality AMS likely secondary to infection (4) Hypoglycemia: Code(s): E16.2 - Hypoglycemia, unspecified Status: Acute Assessment and Plan: RESOLVED (5) Shingles: Code(s): B02.9 - Zoster without complications Status: Acute Assessment and Plan: Improving. Have switched IV acyclovir to p.o. valacyclovir as he does not seem to be any disseminated herpetic infection. Rash on his right buttock is not very impressive. (6) Chronic kidney disease, stage IV (severe): Code(s): N18.4 - Chronic kidney disease, stage 4 (severe) Status: Chronic Assessment and Plan: Stage 4 chronic kidney disease patient is status post renal transplant -nephrology following and their recommendations appreciated. -baseline kidney function unknown. Creatinine was 2.8 in September 2020. -patient follows Dr. Olivia at [facility] and will follow with him after discharge. -confer antirejection regimen with Dr. Olivia. For now continue prednisone 5 mg p.o. daily and tacrolimus 1 mg p.o. twice a day. Tacrolimus level is being followed (7) Afib: Code(s): I48.91 - Unspecified atrial fibrillation Status: Chronic Assessment and Plan: Patient has history of AFib currently rate controlled -continue carvedilol and Eliquis (8) Parkinson's disease: Code(s): G20 - Parkinson's disease Status: Chronic Assessment and Plan: Continue carbidopa and levodopa (9) Renal transplant recipient: Code(s): Z94.0 - Kidney transplant status Status: Chronic Assessment and Plan: Continue prednisone and tacrolimus 1 mg p.o. b.i.d.. Tacrolimus level from 02/04 is pending. Baseline creatinine unknown. Hemant creatinine 2.5 as of September 2020. 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 Insulin sliding scale. (11) HTN (hypertension): Qualifiers: Hypertension type: essential hypertension Qualified Code(s): I10 - Essential (primary) hypertension Code(s): I10 - Essential (primary) hypertension Status: Chronic Assessment and Plan: Bp is 150/73 -continue carvedilol, hydralazine, isosorbide dinitrate at current dose. DS: Summary
--- NOTE | 2021-02-09 17:42 | PM.PNNEP ---
Subjective Date/time seen: 02/09/21 15:42 Continues to make slow and steady progress; Objective Data Vital Signs Vital Signs: Vital Signs - 24 hr 02/08/21 20:02 02/08/21 20:56 02/08/21 22:00 Temperature 36.2 C L Pulse Rate 72 85 85 Respiratory Rate 18 21 H Blood Pressure 144/68 H Pulse Oximetry 99 100 02/09/21 06:00 02/09/21 08:40 02/09/21 12:30 Temperature 36.9 C 36.5 C Pulse Rate 88 88 81 Respiratory Rate 20 16 Blood Pressure 150/73 H 130/65 Pulse Oximetry 99 98 Intake/Output Intake/Output: Intake & Output 02/06/21 02/07/21 02/08/21 02/09/21 23:59 23:59 23:59 23:59 Intake Total 1690 1880 1490 540 Output Total 1750 2000 600 600 Balance -60 -120 890 -60 Meds/Results Medications: Active Medications Generic Name Dose Route Start Last Admin Trade Name Freq PRN Reason Stop Dose Admin Albuterol 2 puff 02/01/21 14:31 Albuterol Sulfate (*Sp) Aerosol 1 Puff INHALATION Q6HRT PRN Shortness Of Breath Allopurinol 300 mg 02/02/21 09:00 02/09/21 08:40 Allopurinol 300 Mg Tablet PO 300 mg DAILY MARICHUY Administration Amlodipine Besylate 5 mg 02/06/21 09:00 02/09/21 08:41 Amlodipine Besylate 5 Mg Tablet PO 5 mg QAM MARICHUY Administration Apixaban 2.5 mg 02/01/21 17:00 02/09/21 16:13 Apixaban 2.5 Mg Tablet PO 2.5 mg BID MARICHUY Administration Artificial Tears 1 drop 02/01/21 14:42 02/02/21 08:40 Artificial Tears Ophth Soln 15 Ml Bottle EACH EYE 1 drop TID PRN Administration Dry Eyes Aspirin 81 mg 02/02/21 09:00 02/09/21 08:40 Aspirin 81 Mg Chewable Tablet PO 81 mg DAILY MARICHUY Administration Atorvastatin Calcium 40 mg 02/01/21 21:00 02/08/21 20:55 Atorvastatin 40 Mg Tablet PO 40 mg HS MARICHUY Administration Brimonidine Tartrate 1 drop 02/01/21 17:00 02/09/21 16:12 Brimonidine Tartrate 0.2% Op Soln 5 Ml Btl EACH EYE 1 drop TID MARICHUY Administration Calcitriol 0.5 mcg 02/02/21 09:00 02/09/21 08:40 Calcitriol 0.25 Mcg Capsule PO 0.5 mcg [id number] MARICHUY Administration Carbamide Peroxide 5 drop 02/01/21 17:00 02/09/21 16:12 Carbamide Peroxide 6.5% Ot Soln 15 Ml Btl EACH EAR 5 drop BID MARICHUY Administration Carbidopa/Levodopa 1 tablet 02/01/21 17:00 02/09/21 16:14 Carbidopa/Levodopa 25/250 Mg Tablet PO 1 tablet BID MARICHUY Administration Carbidopa/Levodopa 1 tablet 02/01/21 23:00 02/09/21 11:57 Carbidopa/Levodopa 25/100 Mg Cr Tablet PO 1 tablet Q12H MARICHUY Administration Carvedilol 12.5 mg 02/01/21 21:00 02/09/21 08:40 Carvedilol 12.5 Mg Tablet PO 12.5 mg Q12H MARICHUY Administration Dextrose 12.5 gm 02/02/21 16:58 Dextrose 50% 25 Gm/50 Ml Syringe IV PUSH PRN PRN Hypoglycemia Protocol Docusate Sodium 100 mg 02/01/21 17:00 02/09/21 16:12 Docusate Sodium 100 Mg Capsule PO 100 mg BID MARICHUY Administration Ferrous Sulfate 324 mg 02/02/21 09:00 02/09/21 08:40 Ferrous Sulfate 324 Mg Tablet PO 324 mg DAILY MARICHUY Administration Fluticasone Propionate 2 spray 02/01/21 14:31 Fluticasone Propionate 0.05% Na Spr 16 Gm Btl (*Bkc) NASAL DAILY PRN Allergy Symptoms Gabapentin 100 mg 02/04/21 12:20 02/09/21 08:40 Gabapentin 100 Mg Capsule PO 100 mg QAM MARICHUY Administration Glucagon 1 mg 02/02/21 16:58 Glucagon For Inj 1 Mg Vial IM PRN PRN Hypoglycemia Protocol Glucose 15 gm 02/02/21 16:58 Glucose Oral Gel 15 Gm Of Glucse In 37.5 Gm Tube PO PRN PRN Hypoglycemia Protocol Home Med 1 each 02/02/21 09:00 02/09/21 08:42 Home Medication: (Prucalopride [Motegrity] 2 Mg Tablet PO 03/04/21 08:59 1 each DAILY MARICHUY Administration Home Med 1 each 02/01/21 21:00 02/09/21 08:42 Home Medication: (Tacrolimus 1 Mg Capsule) PO 03/03/21 20:59 1 each Q12HR MARICHUY Administration Home Med 1 each 02/01/21 17:00 02/09/21 16:13 Home Medication Hannah Root 550 Mg Capsule PO 03/03/21 16
[2021-02-09 20:02] VITALS: PULSE 80; RESP 18; O2SAT 98
[2021-02-09 20:09] LABS: EDCOVIDSCREEN Negative (Negative)
[2021-02-09 20:48] VITALS: PULSE 80
[2021-02-09] MEDS: ATORVASTATIN 40 MG TABLET PO (20:48)
[2021-02-09] MEDS: INSULIN GLARGINE (*BKC) 100 UNITS/ML 15 UNITS SUB-Q (20:48)
[2021-02-09] MEDS: TAMSULOSIN HCL 0.4 MG CAPSULE PO (20:54)
[2021-02-09] MEDS: VENLAFAXINE HCL XR 75 MG CAP.ER.24H PO (20:54)
[2021-02-09] MEDS: CENTRAL LINE FLUSH 10 ML IV PUSH (20:56)
[2021-02-09] MEDS: LATANOPROST 0.005% OP SOLN 2.5 ML BTL 1 DROP EACH EYE (21:28)
[2021-02-09] MEDS: rOPINIRole HCL 0.125 MG TABLET PO (21:30)
[2021-02-09 22:00] VITALS: BP 139/61; PULSE 81; RESP 21; TEMP 36.7; O2SAT 100
[2021-02-09 22:09] LABS: Glucose Point of Care 276 mg/dl (65-105)
== END 2021-02-09 23:30 | DRG 698 ==
LOC: ANHED 06:33 → ANHICU 10:58 → ANH2MED 02-08 10:27 → ANHICU 02-10 17:15
PROVIDERS: Emergency Medicine; Internal Medicine; Internal Medicine Critical Care Medicine; Internal Medicine Nephrology; Admitting Provider Internal Medicine; Emergency Provider General Practice; PCP Family Medicine; Visit Provider Family Medicine
DX: T83.511A Infection and inflammatory reaction due to indwelling urethral catheter, initial encounter (principal); A41.9 Sepsis, unspecified organism; G93.41 Metabolic encephalopathy; I13.0 Hypertensive heart and chronic kidney disease with heart failure and stage 1 through stage 4 chronic kidney disease, or unspecified chronic kidney disease; N18.4 Chronic kidney disease, stage 4 (severe); Z94.0 Kidney transplant status; I50.32 Chronic diastolic (congestive) heart failure; D84.9 Immunodeficiency, unspecified; N13.30 Unspecified hydronephrosis; Z16.12 Extended spectrum beta lactamase (ESBL) resistance; N17.9 Acute kidney failure, unspecified; N39.0 Urinary tract infection, site not specified; D69.6 Thrombocytopenia, unspecified; D63.1 Anemia in chronic kidney disease; T68.XXXA Hypothermia, initial encounter; Z20.822 Contact with and (suspected) exposure to COVID-19; B02.9 Zoster without complications; G20 Parkinson's disease; E11.51 Type 2 diabetes mellitus with diabetic peripheral angiopathy without gangrene; E11.22 Type 2 diabetes mellitus with diabetic chronic kidney disease; E11.649 Type 2 diabetes mellitus with hypoglycemia without coma; E11.43 Type 2 diabetes mellitus with diabetic autonomic (poly)neuropathy; K31.84 Gastroparesis; N40.1 Benign prostatic hyperplasia with lower urinary tract symptoms; R33.8 Other retention of urine; M10.9 Gout, unspecified; F32.9 Major depressive disorder, single episode, unspecified; E78.5 Hyperlipidemia, unspecified; I48.91 Unspecified atrial fibrillation; I25.2 Old myocardial infarction; Z79.01 Long term (current) use of anticoagulants; Z79.4 Long term (current) use of insulin; Z86.73 Personal history of transient ischemic attack (TIA), and cerebral infarction without residual deficits
CPT/HCPCS: 36415; 36556; 36600; 51702; 70450; 71045; 73060; 76775; 80053; 80069; 80197; 81001; 82375; 82805; 82948; 83036; 83050; 83605; 83615; 83690; 83735; 84100; 84443; 85025; 87040; 87077; 87086; 87088; 87186; 87426; 93005; 96374; 96375; 97110; 97116; 97162; 97165; 97530; 97535; 99285; A9270; C1751; C9803; J0133; J0360; J0696; J1170; J1335; J1815; J2543; J3370; J3475; J7030; J7060; J7512

== ENCOUNTER 2021-02-25 09:56 | Inpatient (IN) | payer MEDICARE, BC, SELFPAY ==
[2021-02-25] VITALS (63 sets, daily range): BP systolic 94–162; BP diastolic 66–119; PULSE 77–97; RESP 0–31; TEMP 36.4; O2SAT 94–100
--- NOTE | ~2021-02-25 | XR_ITS ---
EXAMINATION: XR hip BI 2V w AP pelvis EXAM DATE: 02/25/2021 10:57 INDICATION: Initial encounter following injury, with pain of the hips bilaterally. Fall. TECHNIQUE: Each hip imaged independently (separate right and also left hip) 'frog leg' and frontal p rojections for interpretation. Frontal projection pelvis. There is no prior study for comparison. FINDINGS: No radiographic evidence of hip avascular necrosis. There is moderate primary osteoarthrit is. There are no acute fractures or dislocations identified. There is no subcutaneous gas. There ar e arterial calcifications, arteriosclerosis. There are no radiopaque foreign bodies. IMPRESSION: Moderate hip osteoarthritis. Reviewed, dictated and finalized at location B. EM CONSULTANT
--- NOTE | ~2021-02-25 | CT_ITS ---
EXAMINATION: CT cervical spine wo con EXAM DATE: 02/25/2021 10:51 INDICATION: Head injury, neck pain . TECHNIQUE: Spiral CT of the cervical spine was performed without contrast. Axial images were reviewe d. Coronal and sagittal reformatted images cervical spine were also reviewed. The dose-length produc t (DLP) for this examination was 328.74 mGy-cm. The exposure was tailored according to patient size (auto mA exposure control), and iterative reconstruction (ASIR) was used as additional dose reduction technique. There is no prior study for comparison. FINDINGS: There is no evidence of acute cervical fracture. The odontoid process is intact. Pre-dens space is normal. Prevertebral soft tissue is normal. There are no soft tissue abnormalities identi fied. There is no disc space widening or traumatic vertebral body subluxation suspected. There is m oderate to severe disc disease at C6-7, moderate at C5-6. Mild degenerative subluxations. There is ad vanced upper cervical facet arthropathy. Left mastoid effusion. There is chronic calcification, patie nt did have recent ultrasound in November. A detailed level by level evaluation of spondylosis can be added as addendum if requested. IMPRESSION: 1. No acute cervical fracture. 2. Cervical spondylosis. Reviewed, dictated and finalized at location B. PRESS OPERATOR
--- NOTE | ~2021-02-25 | XR_ITS ---
EXAMINATION: XR chest 2V DATE: 03/01/2021 11:33 INDICATION: Fluid overload TECHNIQUE: frontal and lateral views of the chest were obtained. COMPARISON: Chest radiograph dated 02/25/2021 FINDINGS: Increasing opacities in the left mid to lower lung zone which on the lateral projection appears to co rrespond to a new small pleural effusion tracking along the left major fissure. Unchanged mild lingul ar atelectasis along side a prominent left paracardial fat pad. Small right pleural effusion with no mild blunting at the right costophrenic angle. Persistent mild infrahilar opacities with bronchial wa ll thickening. No pneumothorax. Cardiomegaly. Median sternotomy wires and aortic valve repair. IMPRESSION: 1. New small bilateral pleural effusions. 2. Persistent mild infrahilar opacities with bronchial wall thickening which could be due to bronchit is or mild perihilar edema. 3. Unchanged opacities at the lateral left lung base most likely lingular atelectasis along side a pr ominent pericardial fat pad although differential includes pneumonia. Reviewed, dictated and finalized at location B. ICAL EDUCATOR IMPRESSION: 1. New small bilateral pleural effusions. 2. Persistent mild infrahilar opacities with bronchial wall thickening which co uld be due to bronchitis or mild perihilar edema. 3. Unchanged opacities at the lateral left lung base most likely lingular atele ctasis along side a prominent pericardial fat pad although differential include s pneumonia.
--- NOTE | ~2021-02-25 | CT_ITS ---
EXAMINATION: CT brain wo con DATE: 02/27/2021 10:34 INDICATION: Head pressure post fall. Facial droop. TECHNIQUE: Computed tomography (CT) of the head was performed without intravenous contrast. Sagittal and coronal reconstructions were performed. The mA was adjusted according to patient size. Iterative reconstruction technique was employed. The dose-length product was 681.00 mGy-cm. COMPARISON: head CT dated 02/25/2021 FINDINGS: No fracture. There is mild scattered white matter hypoattenuation consistent with chronic small vesse l ischemic disease. No acute intracranial hemorrhage, acute infarction or abnormal extra axial fluid collection. Symmetric prominence of the sulci and ventricles consistent with mild to moderateage-aris ropriate diffuse cerebral volume loss. No mass/mass effect. Unchanged small right mastoid effusion an d larger left otomastoiditis effusion. Mild mucosal thickening in the paranasal sinuses. Changes of b ilateral intraocular lens replacement. Intracranial calcified cerebral atherosclerosis is noted. IMPRESSION: 1. No fracture or acute intracranial process. 2. Age-related changes including mild to moderate diffuse volume loss and mild scattered white matter hypoattenuation consistent with chronic small vessel ischemic disease. Reviewed, dictated and finalized at location A. ION EXAMINER IMPRESSION: 1. No fracture or acute intracranial process. 2. Age-related changes including mild to moderate diffuse volume loss and mild scattered white matter hypoattenuation consistent with chronic small vessel isc hemic disease.
--- NOTE | ~2021-02-25 | US_ITS ---
EXAMINATION: US renal BI DATE: 02/26/2021 08:26 INDICATION: Elevated creatinine. TECHNIQUE: Multiple ultrasound grayscale images of the kidneys were obtained. COMPARISON: None. FINDINGS: The right kidney measures 7.0 x 3.3 x 4.3 cm. The left kidney measures 5.6 x 2.9 x 3.2 cm. Cortical a trophy with increased echogenicity consistent with medical renal disease. 7 mm anechoic cyst at the m id right kidney. 5 mm echogenic shadowing calcification at the right kidney which could represent a r enal stone or more likely atherosclerotic calcification. There is no hydronephrosis in either crow kidney. In the left hemipelvis is a left transplant kidney measuring 11.6 x 5.5 x 5.6 cm. There is no rmal renal cortical echogenicity of the transplant kidney. No stones in the transplant kidney. Contin ued decrease in now minimal hydronephrosis of the transplant kidney. The bladder is decompressed arou nd a Davidson catheter which limits evaluation.. IMPRESSION: 1. Kidney decrease in now minimal hydronephrosis in the left pelvic transplant kidney. 2. Atrophy and markedly echogenic bilateral crow kidneys consistent with chronic renal disease. 3. Shadowing echogenic focus at the right kidney which could represent a nonobstructing stone or more likely atherosclerotic calcification of the renal vasculature. Reviewed, dictated and finalized at location A. HNUT ICER MACHINE IMPRESSION: 1. Kidney decrease in now minimal hydronephrosis in the left pelvic transplant kidney. 2. Atrophy and markedly echogenic bilateral crow kidneys consistent with valuer maximiliano renal disease. 3. Shadowing echogenic focus at the right kidney which could represent a nonobs tructing stone or more likely atherosclerotic calcification of the renal vascul ature.
--- NOTE | ~2021-02-25 | XR_ITS ---
EXAMINATION: XR chest 2V DATE: 02/25/2021 10:57 INDICATION: Weakness. Fall. Lower limb swelling. TECHNIQUE: frontal and lateral views of the chest were obtained. COMPARISON: Chest radiograph dated 02/09/2021 FINDINGS: Mild perihilar opacities and bronchial wall thickening which could be due to bronchitis or more likel y mild pulmonary edema. Opacities with relatively well-defined margins along the left heart border co rresponding with paracardial fat pads on prior CT dated 11/28/2020. Chronic pleural parenchymal scarrin g at the lateral left lung base resulting in persistent blunting at the left costophrenic angle. No n ew airspace opacities, pleural effusion or pneumothorax. Cardiomegaly. Median sternotomy wires and ao rtic valve repair. Atherosclerotic thoracic aorta. IMPRESSION: 1. Mild perihilar opacities which could represent mild pulmonary edema or bronchitis. 2. Cardiomegaly. Reviewed, dictated and finalized at location A. AULIC AND PLUMBING INSTALLER IMPRESSION: 1. Mild perihilar opacities which could represent mild pulmonary edema or bronc hitis. 2. Cardiomegaly.
--- NOTE | ~2021-02-25 | US_ITS ---
EXAMINATION: US venous doppler [facility] DATE: 03/02/2021 13:05 INDICATION: Bilateral lower limb swelling TECHNIQUE: Pardo scale images without and with compression and Doppler images of the bilateral lower e xtremity veins were obtained. COMPARISON: None FINDINGS: Bilateral lower limb edema is noted. The right common femoral vein, profunda femoral vein, femoral vein, popliteal vein, peroneal trunk, p osterior tibial veins, and greater saphenous vein are patent. The left common femoral vein, profunda femoral vein, femoral vein, popliteal vein, peroneal trunk, po sterior tibial veins, and greater saphenous vein are patent. IMPRESSION: 1. Patent bilateral lower extremity veins. No evidence of deep venous thrombosis. Reviewed, dictated and finalized at location A. OR CLINICAL PROJECT MANAGER IMPRESSION: 1. Patent bilateral lower extremity veins. No evidence of deep venous thrombosi s.
--- NOTE | ~2021-02-25 | CT_ITS ---
EXAMINATION: CT brain wo con DATE: 02/25/2021 10:50 INDICATION: Head injury. TECHNIQUE: Computed tomography (CT) of the head was performed without intravenous contrast. The mA wa s adjusted according to patient size. Iterative reconstruction technique was employed. The dose-lengt h product was 681.00 mGy-cm. COMPARISON: Head CT 02/01/2021 FINDINGS: There are scattered areas of low attenuation in the cerebral white matter, which is within normal limits for the patient's age. There is no intracranial hemorrhage, acute infarction, or abnorm al intracranial mass lesion. The ventricles are normal in size. There is frontal scalp soft tissue sw elling. There is mucosal thickening in the paranasal sinuses. There are likely changes of ocular lens replacement surgeries. Again seen is a small right mastoid effusion. Again seen is a left otomastoid effusion. IMPRESSION: 1. Normal aging brain. Reviewed, dictated and finalized at location A. NING AND DEVELOPMENT ASSISTANT IMPRESSION: 1. Normal aging brain.
--- NOTE | ~2021-02-25 | MR_ITS ---
EXAMINATION: MR brain/brain stem wo con DATE: 02/27/2021 10:30 INDICATION: Facial droop. Fall. TECHNIQUE: Magnetic resonance imaging (MRI) of the brain and brainstem was performed without intraven ous contrast. Sequences included sagittal and axial T1-weighted SE, axial diffusion-weighted FS SE, a xial T2*-weighted GRE, axial T2-weighted FLAIR, and axial T2-weighted FSE. Apparent diffusion coeffic ient (ADC) maps were created. COMPARISON: CT dated 02/25/2021 and brain MR dated 12/01/2020 FINDINGS: There are no areas of restricted diffusion to suggest acute infarction. 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 No intracranial hemorrhage or abnormal intracranial mass lesion. There are s cattered areas of nonspecific increased T2-weighted signal intensity in the cerebral white matter, pr edominantly involving the deep and periventricular white matter. There are no intraparenchymal signal abnormalities seen on the other pulse sequences. Symmetric prominence of the sulci and ventricles co nsistent with and mild to moderate age-appropriate diffuse cerebral volume loss. There are no abnorma l extra-axial fluid collections. Flow voids are seen in the cerebral arteries on the T2-weighted sequ ences consistent with their expected patency. Chronic right mastoid effusion and large left orbital m astoid effusion. Mild mucosal thickening the paranasal sinuses. Changes of bilateral intraocular lens replacement. IMPRESSION: 1. No acute intracranial process. 2. 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 3. Age-related changes including mild to moderate diffuse volume loss and mild scattered white matter T2 hyperintensity consistent with chronic small vessel ischemic disease. Reviewed, dictated and finalized at location A. REPAIRER IMPRESSION: 1. No acute intracranial process. 2. 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 3. Age-related changes including mild to moderate diffuse volume loss and mild scattered white matter T2 hyperintensity consistent with chronic small vessel i schemic disease.
--- NOTE | 2021-02-25 10:32 | ECG_ITS ---
Measurements Intervals [place] Rate: 81 P: 42 WV: 179 QRS: -44 QRSD: 160 T: 53 QT: 446 QTc: 520 Interpretive Statements SINUS RHYTHM LEFT AXIS DEVIATION RIGHT BUNDLE BRANCH BLOCK ABNORMAL ECG Electronically Signed On 02-25-2021 12:34:01 WIRE BENDER by Lokesh Smith D.O.
--- NOTE | 2021-02-25 10:34 | ED.FALL ---
HPI - Fall General Chief Complaint: Fall Stated Complaint: falling, struck head, + blood thinners Time Seen by Provider: 02/25/21 10:16 Source: patient Mode of arrival: EMS Limitations: no limitations History of Present Illness HPI Narrative: This is a 75 year old male that presents to the ER via EMS after a fall today. Reports he got dizzy and fell forward out of his wheelchair. Does report he frequently gets dizzy. Has history of Parkinson's. He is unsure what he hit his head on. He does not think that he lost consciousness. Patient has contusion to the forehead. He is currently on apixaban. He reports neck pain. Denies vision changes, vomiting, chest pain, shortness of breath, numbness, weakness or joint pain. Related Data Home Medications Medication Instructions Recorded Confirmed allopurinol 300 mg PO DAILY 02/10/19 02/01/21 atorvastatin 40 mg PO HS 02/10/19 02/01/21 calcitriol 0.5 mcg PO MOWEFR 02/10/19 02/01/21 carbidopa-levodopa 25 - 250 tablet PO BID 02/10/19 02/01/21 carbidopa-levodopa 50 - 200 tablet PO BID 02/10/19 02/01/21 docusate sodium [Colace] 100 mg PO BID 02/10/19 02/01/21 fluticasone propionate 2 spray INTRANASAL DAILY PRN 02/10/19 02/01/21 melatonin 5 mg PO HS PRN 02/10/19 02/01/21 tamsulosin 0.4 mg PO HS 02/10/19 02/01/21 ropinirole 0.25 mg tablet 0.125 mg PO HS tablet 08/19/19 02/01/21 apixaban 2.5 mg tablet 2.5 mg PO BID 10/01/19 02/01/21 polyethylene glycol 3350 17 17 gm PO BID PRN gm 10/01/19 02/01/21 gram/dose oral powder sennosides 8.6 mg tablet 8.6 mg PO DAILY PRN tablet 10/01/19 02/01/21 tacrolimus 1 mg capsule, 1 mg PO Q12H cap 12/17/19 02/01/21 immediate-release venlafaxine 75 mg PO HS 05/17/20 02/01/21 Motegrity 2 mg PO DAILY 06/24/20 02/01/21 brimonidine 1 drp EACH EYE TID 06/24/20 02/01/21 isosorbide dinitrate 20 mg PO TID 06/24/20 02/01/21 prednisone 5 mg PO DAILY 06/24/20 02/01/21 ferrous sulfate 325 mg (65 mg 325 mg PO DAILY 07/05/20 02/01/21 iron) tablet omeprazole 40 mg capsule,delayed 40 mg PO DAILY cap 07/05/20 02/01/21 release carvedilol 12.5 mg tablet 12.5 mg PO Q12H 11/05/20 02/01/21 Triphrocaps 1 cap PO DAILY 11/24/20 02/01/21 pyridoxine (vitamin B6) 100 mg PO DAILY 11/24/20 02/01/21 artificial tears solution 1 drp OPHTHALMIC (EYE) TID PRN 11/28/20 02/01/21 aspirin 81 mg PO DAILY 11/28/20 02/01/21 latanoprost 1 drp HS 11/28/20 02/01/21 Biofreeze (menthol) 1 ea TOPICAL TID PRN 02/01/21 02/01/21 Lantus U-100 Insulin 20 unit SUBCUT HS 02/01/21 02/01/21 bumetanide 1 mg PO DAILY 02/01/21 02/01/21 insulin aspart U-100 [Novolog 8 unit SUBCUT TIDWM 02/01/21 02/01/21 U-100 Insulin aspart] Allergies Allergy/AdvReac Type Severity Reaction Status Date / Time trimethobenzamide Allergy Severe Loss of Verified 02/01/21 06:52 Consciousness fish oil Allergy Mild Rash Verified 02/01/21 06:52 diphenhydramine Allergy Unknown aggi Verified 02/01/21 06:52 levofloxacin Allergy Unknown Hives Verified 02/01/21 06:52 NSAIDS (Non-Steroidal Allergy Unknown renal Verified 02/01/21 06:52 Anti-Inflamma insuff metoclopramide AdvReac Severe Other Verified 02/01/21 06:52 ondansetron AdvReac Severe Other Verified 02/01/21 06:52 Review of Systems Review of Systems: CONSTITUTIONAL: Denies fever EYES: Denies visual changes CARDIOVASCULAR: Reports edema. Denies chest pain RESPIRATORY: Denies dyspnea. GASTROINTESTINAL: Denies vomiting GENITOURINARY: Denies dysuria MUSCULOSKELETAL: Denies back pain NEUROLOGIC: Denies headache, numbness, or weakness. All systems reviewed & are unremarkable except as noted in HPI and below [facility] Past Medical History Medical History (Updated 02/25/21 @ 18:05 by Amy Goldberg PA-C) Acute kidney failure Afib Anemia BPH (benign prostatic hyperplasia) CHF (congestive heart failure), NYHA class I Echo from 12/02/2020 read as the following 1. Complete two-dimensional, color flow and Doppler transthoracic echocardiogram is performed. 2. Lef
[2021-02-25 11:50] LABS: Alanine Aminotransferase 8 U/L (4-50); Albumin Level 2.9 g/dL (3.5-5.1); Alkaline Phosphatase 64 U/L (38-126); Anion Gap 10 mmol/L (8-16); Aspartate Amino Transferase 27 U/L (17-59); Bilirubin,Total 0.5 mg/dL (0.2-1.3); Blood Urea Nitrogen 50 mg/dL (9-20); Calcium 8.6 mg/dL (8.4-10.2); Carbon Dioxide 21 mmol/L (22-30); Chloride 108 mmol/L (98-107); Estimated CRCL calculation 19 ml/min; Estimated Glomerular Filt Rate 17; Glucose 105 mg/dL (65-110); Potassium 4.5 mmol/L (3.4-5.0); Sodium 139 mmol/L (137-145)
[2021-02-25 11:57] LABS: INR 1.4; Prothrombin Time 17.1 Seconds (11.1-14.7)
[2021-02-25 11:58] LABS: Partial Thromboplastin Time 38.8 SECONDS (22.3-36.8)
[2021-02-25 12:28] LABS: Add Urine Microscopic? YES; Appearance Urine Cloudy (Clear); Bacteria Urine Trace /hpf; Bilirubin Urine Negative (Negative); Blood Urine 1+ (Negative); Budding Yeast Urine Present /hpf; Calcium Oxalate Crystals Urine Present /hpf; Color Urine Yellow (Yellow); Glucose Urine UA Negative (Negative); Ketones Urine Negative (Negative); Leukocyte Esterase Ur 2+ LEU/UL (Negative); Mucus Urine Rare /lpf; Nitrate Urine Negative (Negative); Protein Urine 3+ mg/dL (Negative); RBC Urine 21-50 /hpf (0-2); Specific Grav Ur 1.015 (1.001-1.035); Squamous Epithelial Cell Urine Rare /hpf (Few); Urobilinogen Urine Negative mg/dL (<2.0); WBC Urine >75 /hpf
[2021-02-25 12:32] LABS: Basophils Absolute Auto 0.1 K/mm3 (0.0-0.1); Basophils Percent Auto 0.5 % (0.2-1.2); Eosinophils Absolute Auto 0.1 K/mm3 (0-0.3); Eosinophils Percent Auto 1.3 % (0-4.4); Hematocrit 27.5 % (42.0-52.0); Hemoglobin 8.9 g/dL (14.0-18.0); Immature Granulocyte Absolute 0.08 K/mm3 (0.00-0.031); Immature Granulocyte Percent A 0.7 % (0-0.5); Lymphocytes Percent Auto 20.8 % (18.3-44.2); Mean Corpuscular HGB Conc 32.4 g/dl (32-36); Mean Corpuscular Hemoglobin 31.4 pg (26-34); Mean Corpuscular Volume 97.2 fl (80-100); Mean Platelet Volume 10.5 fl (7.4-10.4); Monocytes Absolute Auto 0.6 K/mm3 (0.1-0.6); Monocytes Percent Auto 5.5 % (2.6-8.5); Neutrophils Absolute Auto 7.9 K/mm3 (1.3-6.7); Neutrophils Percent Auto 71.2 % (45.5-73.1); Platelet Count Result 198 k/mm3 (150-375); Red Blood Count 2.83 M/mm3 (4.6-6.20); Red Cell Distribution Width 21.1 % (11.5-14.5); White Blood Count 11.1 K/mm3 (4.5-10.0)
[2021-02-25 13:11] LABS: NT Pro B Type Natriuretic Pept 29200 pg/mL (5-100); Troponin I 0.039 ng/mL (0.000-0.034)
[2021-02-25 13:14] LABS: Lipase < 10 U/L (23-300)
--- NOTE | 2021-02-25 13:37 | ECG_ITS ---
Measurements Intervals [place] Rate: 79 P: 44 MD: 185 QRS: -60 QRSD: 158 T: 66 QT: 459 QTc: 529 Interpretive Statements SINUS RHYTHM VENTRICULAR PREMATURE COMPLEX RIGHT BUNDLE BRANCH BLOCK LEFT ANTERIOR FASCICULAR BLOCK ABNORMAL ECG Electronically Signed On 03-02-2021 12:29:18 PHOTOSTAT OPERATOR by Lokesh Smith D.O.
--- NOTE | 2021-02-25 14:10 | PC.NURSE ---
Spoke with Netta DUNLAP at [facility], pt received morning Tacro at 0800. Next dose due at 20:00.
[2021-02-25 14:43] LABS: Lactic Acid Reflex 0.9 mmol/L (0.7-2.1)
[2021-02-25 14:47] LABS: CRP 4.1 mg/dL (<1.0)
[2021-02-25 14:58] LABS: Troponin I 0.031 ng/mL (0.000-0.034)
--- NOTE | 2021-02-25 15:59 | PM.CNNEP ---
Assessment and Plan Assessment and plan (1) Chronic kidney disease, stage IV (severe): Code(s): N18.4 - Chronic kidney disease, stage 4 (severe) Status: Chronic Assessment and Plan: Maris has chronic kidney disease. He has a kidney transplant and the function has been gradually deteriorating. Lately his creatinine has ranged anywhere from 2.5-3.5. At 1 point he was very confused and encephalopathic with a creatinine of around 3. We did a 24hour urine to make sure his muscle mass was not low such that his serum creatinine was under estimating his kidney function but his creatinine clearance was similar to his GFR so I do not think uremia was playing a role. Currently his creatinine is higher than baseline. He could be dehydrated since he has not been eating very well the last couple of days. Will give him some IV fluids. He could have obstruction as well. Will get a renal ultrasound. He is taking his anti rejection medications. I doubt if this is an issue with rejection. And is sick is he is with his bladder infection this could be affecting the kidney as well. Will give him IV fluids get an ultrasound and continue his anti rejection medications. (2) Acute UTI: Code(s): N39.0 - Urinary tract infection, site not specified Status: Resolved Assessment and Plan: The patient has cultures pending and is on antibiotics (3) Renal transplant, status post: Code(s): Z94.0 - Kidney transplant status Status: Acute Assessment and Plan: he is on tacrolimus and prednisone. (4) Urinary retention: Code(s): R33.9 - Retention of urine, unspecified Status: Acute Assessment and Plan: he has a catheter in long-term (5) Acute encephalopathy: Code(s): G93.40 - Encephalopathy, unspecified Status: Acute Assessment and Plan: This is most likely due to his UTI (6) Afib: Code(s): I48.91 - Unspecified atrial fibrillation Status: Chronic Assessment and Plan: he is in sinus rhythm now. His pulse is in the 80s (7) Diabetes: Qualifiers: Diabetes mellitus type: type 2 Diabetes mellitus vermin exterminator insulin use: with penitentiary use Diabetes mellitus complication status: with neurologic complications Diabetes mellitus complication detail: with autonomic neuropathy Qualified Code(s): E11.43 - Type 2 diabetes mellitus with diabetic autonomic (poly)neuropathy; Z79.4 - director long term care (current) use of insulin Code(s): E11.9 - Type 2 diabetes mellitus without complications Status: Chronic Assessment and Plan: he is on Accu-Cheks and sliding-scale insulin (8) HLD (hyperlipidemia): Qualifiers: Hyperlipidemia type: unspecified Qualified Code(s): E78.5 - Hyperlipidemia, unspecified Code(s): E78.5 - Hyperlipidemia, unspecified Status: Chronic Assessment and Plan: he is on atorvastatin (9) Gout: Qualifiers: Gout site: unspecified site Gout etiology: unspecified cause Chronicity: acute Qualified Code(s): M10.9 - Gout, unspecified Code(s): M10.9 - Gout, unspecified Status: Acute Assessment and Plan: he is on allopurinol. We need to reduce the dose. Will check a uric acid level. History of Present Illness Reason for Consult Consult date: 02/25/21 Chief Complaint Chief complaint: falling, struck head, + blood thinners History of Present Illness Narrative: is in the room. Mr. Jackman is a very pleasant 75-year-old gentleman who has multiple medical problems including end-stage renal disease status post kidney transplant 8 years ago who has a chronic baseline creatinine of around 2.6-3. He also has gout, hypertension, glaucoma, Parkinson's, depression, intermittent confusion, recurrent UTIs, chronic Davidson catheter because of urinary retention, diastolic dysfunction, bioprosthetic aortic valve status post TAVR,, coronary disease, ga
[2021-02-25] MEDS: ERTAPENEM SODIUM 0.5 GM in SODIUM CHLORIDE 0.9% IV 50 ML IVPB (17:16)
--- NOTE | 2021-02-25 17:35 | PM.IMHP ---
H&P: HPI History of Present Illness Date/Time: 02/25/21 17:35 this is a 75 year old male patient who resides at [facility]. The patient stated that his shoes were placed incorrectly on each foot. The patient stated that he was sitting in his chair and he leaned over to switch issues when he fell out of his wheelchair landing on his head. The patient stated that he did feel dizzy prior to falling out of the wheelchair. The patient is weak and is now in a wheelchair the majority of the time. The patient has a contusion to his forehead. He is also on apixaban he was complaining of neck pain. He denies any fever chills or any chest pain or shortness of breath. His white count is 11.1. H&H is 8.9 and 27.5. This is close to his baseline. His creatinine today is 3.6 however his baseline is anywhere from 2.6-3.7. Nephrology has been consulted. The patient has a history of having a renal transplant and is on immunosuppressive treatment. CRP is 4.1 and BNP 30564. The patient is positive for UTI. According to the patient's PICC line was just removed yesterday as his last admission on 02/01/2021 patient had blood cultures positive for Gram-positive cocci, 02/03/2021 urine culture Klebsiella which is ESBL and the patient was prescribed 10 days of IV antibiotic ertapenem per ID recommendation. The patient was started on ertapenem and was given a tetanus vaccine. Patient receives sutures to the forehead in the emergency room. Hip and pelvis x-ray was read as moderate hip osteoarthritis. Chest x-ray was read per radiology as mild perihilar opacities which could represent mild pulmonary edema or bronchitis. Cardiomegaly. Cervical spine CT was read by radiology as no acute cervical fracture. Cervical spondylosis. Head CT was read per radiology as normal aging brain. The patient is being admitted to observation status on the date of service of 02/25/2021. Chief Complaint: Fall Review of Systems Review of Systems: All systems reviewed & are unremarkable except as noted in HPI and below Constitutional: Constitutional: Reports as per HPI and Reports no additional constitutional complaints Eyes: Eyes: Reports as per HPI and Reports no additional eye complaints ENT: Reports system reviewed and no additional complaints, except as documented and Reports Normal hearing present Cardiovascular: Cardiovascular: Reports no additional cardiovascular complaints Respiratory: Respiratory: Reports no additional respiratory complaints and Reports no additional respiratory complaints Gastrointestinal: Gastrointestinal: Reports as per HPI and Reports no additional gastrointestinal complaints Musculoskeletal: Musculoskeletal: Reports no additional musculoskeletal complaints Integumentary/Breasts: Skin/Breast: Reports system reviewed and no additional complaints, except as docu and Reports as per HPI Neurologic: Reports system reviewed and no additional complaints, except as documented, Reports as per HPI and Reports Normal hearing present Psychiatric: Psychiatric: Reports no additional psychiatric complaints and Reports as per HPI Endocrine: Endocrine: Reports no additional endocrine complaints Hematologic/Lymphatic: Hematologic/Lymphatic: Reports no additional hematologic/lymphatic complaints Allergic/Immunologic: Allergic/Immunologic: Reports no additional allergic/immunologic complaints [facility] Past Medical History Medical History Acute kidney failure Afib Anemia BPH (benign prostatic hyperplasia) CHF (congestive heart failure), NYHA class I Echo from 12/02/2020 read as the following 1. Complete two-dimensional, color flow and Doppler transthoracic echocardiogram is performed. 2. Left ventricular chamber dimension is normal. 3. Left ventricular systolic function is normal, estimated at 55-60%. 4. There is mildly increased left ventricular wall thickness. 5. The left ventricular diast
[2021-02-25] MEDS: TETANUS,DIPHTHERIA,AC PERTUSSIS ADULT (0.5 ML) BOOSTRIX IM (18:24)
--- NOTE | 2021-02-25 18:59 | PC.NURSE ---
Pt provided boxed meal with provider approval. FSBS 180. Pt is pleasantly confused, having some hallucinations. Leg bag emptied. Continuing to await admission bed assignment. Pt and updated.
[2021-02-25 19:05] LABS: Glucose Point of Care 180 mg/dl (65-105)
[2021-02-25 19:24] LABS: Creatine Kinase 67 U/L (55-170)
[2021-02-25 19:38] LABS: Troponin I 0.028 ng/mL (0.000-0.034)
--- NOTE | 2021-02-25 21:20 | PC.NURSE ---
Called and spoke with pharmacy regarding patients evening medication. Per pharmacy, they are working on them and will tube when ready.
--- NOTE | 2021-02-25 23:00 | PC.NURSE ---
assuming care of pt.
[2021-02-25] MEDS: VENLAFAXINE HCL XR 75 MG CAP.ER.24H PO (23:04)
[2021-02-25] MEDS: CARBIDOPA/LEVODOPA 25/100 MG CR TABLET 2 TABLET PO (23:04)
[2021-02-25] MEDS: carvediloL 12.5 MG TABLET PO (23:04)
[2021-02-25] MEDS: APIXABAN 2.5 MG TABLET PO (23:05)
[2021-02-25] MEDS: ATORVASTATIN 40 MG TABLET PO (23:05)
[2021-02-25] MEDS: ISOSORBIDE DINITRATE 20 MG TABLET PO (23:05)
[2021-02-25] MEDS: rOPINIRole HCL 0.125 MG TABLET PO (23:05)
[2021-02-25] MEDS: hydrALAZINE HCL 50 MG TABLET 100 MG PO (23:05)
[2021-02-25] MEDS: TAMSULOSIN HCL 0.4 MG CAPSULE PO (23:05)
[2021-02-25 23:17] LABS: Glucose Point of Care 216 mg/dl (65-105)
[2021-02-26] VITALS (12 sets, daily range): BP systolic 123–144; BP diastolic 56–68; PULSE 70–86; RESP 14–20; TEMP 35.7–36.2; O2SAT 96–98; BMI 31.0
[2021-02-26] MEDS: INSULIN GLARGINE (*BKC) 100 UNITS/ML 15 UNITS SUB-Q ×2 (00:40→20:04)
--- NOTE | 2021-02-26 01:15 | ADMGEN ---
This patient, Maris Jackman, was admitted to Medical Room 344-01. Patient/family oriented to hospital policies and general routines including ID bracelet, bed and alarms, visiting hours, pain management, procedures, bathroom and other care routines, personal items, smoking policy, room service/diet, and visiting hours. Information on how to activate the Rapid Response Team has been discussed. Patient/Family are encouraged to report perceived risks to care and to ask questions if they do not understand what they are told or what they should do.
--- NOTE | 2021-02-26 01:15 | PC.NURSE ---
0045 PT ADMITTED WITH CONTI CATHETER, DC'D AND NEW CONTI INSERTED
[2021-02-26 01:34] LABS: Creatinine Urine 93.4 mg/dL
[2021-02-26 01:39] LABS: Sodium Urine Random 109 meq/L
[2021-02-26 01:44] LABS: Total Protein Urine Random 352 mg/dL; Ur Ttl Prot Creatinine Ratio 3.77 mg/mg (0-0.20)
[2021-02-26 02:40] LABS: Glucose Point of Care 216 mg/dl (65-105)
[2021-02-26 07:24] LABS: Basophils Absolute Auto 0.1 K/mm3 (0.0-0.1); Basophils Percent Auto 0.5 % (0.2-1.2); Eosinophils Absolute Auto 0.2 K/mm3 (0-0.3); Eosinophils Percent Auto 1.5 % (0-4.4); Hematocrit 26.2 % (42.0-52.0); Hemoglobin 8.4 g/dL (14.0-18.0); Immature Granulocyte Absolute 0.07 K/mm3 (0.00-0.031); Immature Granulocyte Percent A 0.6 % (0-0.5); Lymphocytes Absolute Auto 3.13 K/mm3 (0.9-3.2); Lymphocytes Percent Auto 28.4 % (18.3-44.2); Mean Corpuscular HGB Conc 32.1 g/dl (32-36); Mean Corpuscular Hemoglobin 31.5 pg (26-34); Mean Corpuscular Volume 98.1 fl (80-100); Mean Platelet Volume 10.1 fl (7.4-10.4); Monocytes Absolute Auto 0.8 K/mm3 (0.1-0.6); Neutrophils Absolute Auto 6.9 K/mm3 (1.3-6.7); Platelet Count Result 185 k/mm3 (150-375); Red Blood Count 2.67 M/mm3 (4.6-6.20); Red Cell Distribution Width 20.7 % (11.5-14.5)
[2021-02-26 07:31] LABS: Alanine Aminotransferase 6 U/L (4-50); Albumin Level 2.7 g/dL (3.5-5.1); Alkaline Phosphatase 66 U/L (38-126); Anion Gap 5 mmol/L (8-16); Aspartate Amino Transferase 18 U/L (17-59); Bilirubin,Total 0.3 mg/dL (0.2-1.3); Blood Urea Nitrogen 52 mg/dL (9-20); Calcium 8.4 mg/dL (8.4-10.2); Carbon Dioxide 25 mmol/L (22-30); Chloride 106 mmol/L (98-107); Estimated CRCL calculation 18 ml/min; Estimated Glomerular Filt Rate 16; Glucose 117 mg/dL (65-110); Lactate Dehydrogenase 434 U/L (313-618); Magnesium 1.8 mg/dL (1.6-2.3); Phosphorus 4.4 mg/dL (2.5-4.5); Potassium 4.6 mmol/L (3.4-5.0); Sodium 136 mmol/L (137-145)
[2021-02-26 07:35] LABS: Lactic Acid Reflex 0.7 mmol/L (0.7-2.1)
[2021-02-26 07:49] LABS: Glucose Point of Care 101 mg/dl (65-105)
[2021-02-26] MEDS: ASPIRIN 81 MG CHEWABLE TABLET PO (09:29)
[2021-02-26] MEDS: SENNOSIDES 8.6 MG TABLET PO (09:29)
[2021-02-26] MEDS: APIXABAN 2.5 MG TABLET PO ×2 (09:29→16:34)
[2021-02-26] MEDS: ISOSORBIDE DINITRATE 20 MG TABLET PO ×3 (09:30→16:44)
[2021-02-26] MEDS: carvediloL 12.5 MG TABLET PO ×2 (09:30→20:05)
[2021-02-26] MEDS: predniSONE 5 MG TABLET PO (09:30)
[2021-02-26] MEDS: PYRIDOXINE HCL 50 MG TABLET 100 MG PO (09:30)
[2021-02-26] MEDS: VITAMIN B CMPLX/VIT C/FOLIC AC 1 CAPSULE 1 CAP PO (09:30)
[2021-02-26] MEDS: SACCHAROMYCES BOULARDII 250 MG CAPSULE PO ×2 (09:30→16:32)
[2021-02-26] MEDS: GABAPENTIN 100 MG CAPSULE PO (09:30)
[2021-02-26] MEDS: CARBIDOPA/LEVODOPA 25/250 MG TABLET 1 TABLET PO ×2 (09:31→16:32)
[2021-02-26] MEDS: DOCUSATE SODIUM 100 MG CAPSULE PO ×2 (09:31→16:38)
[2021-02-26] MEDS: hydrALAZINE HCL 50 MG TABLET 100 MG PO ×3 (09:31→16:32)
[2021-02-26] MEDS: FERROUS SULFATE 324 MG TABLET PO (09:31)
[2021-02-26] MEDS: SODIUM BICARBONATE TAB 650 MG TABLET 1300 MG PO ×2 (09:31→16:33)
[2021-02-26] MEDS: SILVER SULFADIAZINE 1% CR 50 GM JAR (*BKC) 1 APPLIC TOPICAL ×2 (09:32→16:35)
[2021-02-26] MEDS: PANTOPRAZOLE 40 MG TABLET PO ×2 (09:32→20:06)
[2021-02-26] MEDS: BUMETANIDE 1 MG TABLET PO (09:32)
[2021-02-26] MEDS: BRIMONIDINE TARTRATE 0.2% OP SOLN 5 ML BTL 1 DROP EACH EYE ×3 (09:33→16:36)
[2021-02-26] MEDS: amLODIPine BESYLATE 2.5 MG TABLET PO (11:35)
[2021-02-26] MEDS: CARBIDOPA/LEVODOPA 25/100 MG TABLET 2 TABLET PO ×2 (11:35→20:28)
[2021-02-26] MEDS: allopurinoL 300 MG TABLET PO (11:35)
--- NOTE | 2021-02-26 12:00 | P.PNIM_ITS ---
Progress Note: A&P Assessment and Plan (1) Head injury: Qualifiers: Encounter type: initial encounter Qualified Code(s): S09.90XA - Unspecified injury of head, initial encounter Code(s): S09.90XA - Unspecified injury of head, initial encounter Status: Acute Assessment and Plan: * Fell out the wheel chair at the skilled nursing * Hit his head * On Eliquis at home * Head ct showed normal aging brain * The patient had 3 sutures placed to the forehead per ED * Repeat head ct due to complaints of pressure and pain * Brain MRI ordered to rule out stroke (2) Acute on chronic kidney failure: Qualifiers: Acute renal failure type: unspecified Chronic kidney disease stage: stage 4 (severe) Qualified Code(s): N17.9 - Acute kidney failure, unspecified; N18.4 - Chronic kidney disease, stage 4 (severe) Code(s): N17.9 - Acute kidney failure, unspecified; N18.9 - Chronic kidney disease, unspecified Status: Acute Assessment and Plan: * Chronic kidney disease * kidney transplant and has gradually been deteriorating. * Nephrology has been consulted * creatinine is anywhere from 2.5-3.5 * Continue with home medications * Anti rejection medication from home * Hold any nephrotoxic medication * Renal ultrasound showed minimal hydronephrosis in the left pelvic transplants kidney,Atrophy and markedly echogenic bilateral [place] kidneys consistent with chronic renal disease. Shadowing echogenic focus at the right kidney which could represent a nonobstructing stone or more likely atherosclerotic calcification of the renal vasculature. * Chronic catheter * Monitor labs (3) Depression: Qualifiers: Depression Type: unspecified Qualified Code(s): F32.9 - Major depressive disorder, single episode, unspecified Code(s): F32.9 - Major depressive disorder, single episode, unspecified Status: Chronic Assessment and Plan: * Continue with home medications. (4) BPH (benign prostatic hyperplasia): Code(s): N40.0 - Benign prostatic hyperplasia without lower urinary tract symptoms Status: Chronic Assessment and Plan: * Continue with tamsulosin * Trend urine output (5) Glaucoma: Code(s): H40.9 - Unspecified glaucoma Status: Chronic Assessment and Plan: * Continue with home eye drops (6) Gout: Qualifiers: Chronicity: acute Gout etiology: unspecified cause Gout site: unspecified site Qualified Code(s): M10.9 - Gout, unspecified Code(s): M10.9 - Gout, unspecified Status: Acute Assessment and Plan: * Continue with home medication (7) HTN (hypertension): Qualifiers: Hypertension type: essential hypertension Qualified Code(s): I10 - Essential (primary) hypertension Code(s): I10 - Essential (primary) hypertension Status: Chronic Assessment and Plan: * BP 123/56 * Continue with Coreg and amlodipine * Trend BP * Adjust therapy as indicated (8) HLD (hyperlipidemia): Qualifiers: Hyperlipidemia type: unspecified Qualified Code(s): E78.5 - Hyperlipidemia, unspecified Code(s): E78.5 - Hyperlipidemia, unspecified Status: Chronic Assessment and Plan: * Continue with atorvastatin (9) Diabetes: Qualifiers: Diabetes mellitus complication detail: with autonomic
--- NOTE | 2021-02-26 12:00 | PM.IMPN ---
Progress Note: A&P Assessment and Plan (1) Head injury: Qualifiers: Encounter type: initial encounter Qualified Code(s): S09.90XA - Unspecified injury of head, initial encounter Code(s): S09.90XA - Unspecified injury of head, initial encounter Status: Acute Assessment and Plan: [facility] Hit his head On Eliquis at home Head ct showed normal aging brain The patient had 3 sutures placed to the forehead per ED Repeat head ct due to complaints of pressure and pain Brain MRI ordered to rule out stroke (2) Acute on chronic kidney failure: Qualifiers: Acute renal failure type: unspecified Chronic kidney disease stage: stage 4 (severe) Qualified Code(s): N17.9 - Acute kidney failure, unspecified; N18.4 - Chronic kidney disease, stage 4 (severe) Code(s): N17.9 - Acute kidney failure, unspecified; N18.9 - Chronic kidney disease, unspecified Status: Acute Assessment and Plan: Chronic kidney disease kidney transplant and has gradually been deteriorating. Nephrology has been consulted creatinine is anywhere from 2.5-3.5 Continue with home medications Anti rejection medication from home Hold any nephrotoxic medication Renal ultrasound showed minimal hydronephrosis in the left pelvic transplants kidney,Atrophy and markedly echogenic bilateral [place] kidneys consistent with chronic renal disease. Shadowing echogenic focus at the right kidney which could represent a nonobstructing stone or more likely atherosclerotic calcification of the renal vasculature. Chronic catheter Monitor labs (3) Depression: Qualifiers: Depression Type: unspecified Qualified Code(s): F32.9 - Major depressive disorder, single episode, unspecified Code(s): F32.9 - Major depressive disorder, single episode, unspecified Status: Chronic Assessment and Plan: Continue with home medications. (4) BPH (benign prostatic hyperplasia): Code(s): N40.0 - Benign prostatic hyperplasia without lower urinary tract symptoms Status: Chronic Assessment and Plan: Continue with tamsulosin Trend urine output (5) Glaucoma: Code(s): H40.9 - Unspecified glaucoma Status: Chronic Assessment and Plan: Continue with home eye drops (6) Gout: Qualifiers: Chronicity: acute Gout etiology: unspecified cause Gout site: unspecified site Qualified Code(s): M10.9 - Gout, unspecified Code(s): M10.9 - Gout, unspecified Status: Acute Assessment and Plan: Continue with home medication (7) HTN (hypertension): Qualifiers: Hypertension type: essential hypertension Qualified Code(s): I10 - Essential (primary) hypertension Code(s): I10 - Essential (primary) hypertension Status: Chronic Assessment and Plan: BP 123/56 Continue with Coreg and amlodipine Trend BP Adjust therapy as indicated (8) HLD (hyperlipidemia): Qualifiers: Hyperlipidemia type: unspecified Qualified Code(s): E78.5 - Hyperlipidemia, unspecified Code(s): E78.5 - Hyperlipidemia, unspecified Status: Chronic Assessment and Plan: Continue with atorvastatin (9) Diabetes: Qualifiers: Diabetes mellitus complication detail: with autonomic neuropathy Diabetes mellitus complication status: with neurologic complications Diabetes mellitus alf insulin use: with ocean transportation intermediary use Diabetes mellitus type: type 2 Qualified Code(s): E11.43 - Type 2 diabetes mellitus with diabetic autonomic (poly)neuropathy; Z79.4 - care home (current) use of insulin Code(s): E11.9 - Type 2 diabetes mellitus without complications Status: Chronic Assessment and Plan: Accu-Cheks AC and HS. sliding scale (10) Renal transplant recipient: Code(s): Z94.0
[2021-02-26 12:08] LABS: Glucose Point of Care 101 mg/dl (65-105)
--- NOTE | 2021-02-26 12:53 | PM.PNNEP ---
Progress Note: A&P Assessment and Plan (1) SUDHIR (acute kidney injury): Code(s): N17.9 - Acute kidney failure, unspecified Status: Deleted Assessment and Plan: due to UTI versus prerenal factors versus something else... 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 Olivia) (4) Acute UTI: Code(s): N39.0 - Urinary tract infection, site not specified Status: Acute Assessment and Plan: seems to be a recurrent issue (likely due to chronic cerna catheter?) on last hospitalization, his urine culture grew ESBL Klebsiella on antibiotics (5) Urinary retention: Code(s): R33.9 - Retention of urine, unspecified Status: Chronic Assessment and Plan: long standing issue/problem cerna catheter in place consider replacing if not done recently (6) Acute encephalopathy: Code(s): G93.40 - Encephalopathy, unspecified Status: Acute Assessment and Plan: presumably due to acute infection/UTI follow mentation closely (7) Diabetes: Qualifiers: Diabetes mellitus complication detail: with autonomic neuropathy Diabetes mellitus complication status: with neurologic complications Diabetes mellitus [facility] insulin use: with [facility] use Diabetes mellitus type: type 2 Qualified Code(s): E11.43 - Type 2 diabetes mellitus with diabetic autonomic (poly)neuropathy; Z79.4 - salvage determiner (current) use of insulin Code(s): E11.9 - Type 2 diabetes mellitus without complications Status: Chronic Assessment and Plan: follow accuchecks glycemic control Will continue to follow. Subjective Date/time seen: 12/04/21 12:53 Chart reviewed; appears somewhat drowsy on my visit but able to answer questions with stimulation; no apparent distress voiced but relays symptoms of pain in his head (due to forehead contusion/lacercation?); no events overnight or earlier this morning. Exam Narrative: General: WD/WN male in NAD Heart: normal S1 and S2; no rub Lungs: clear to auscultation Abdomen: soft, nontender, nondistended, positive bowel sounds Extremities: no cyanosis or clubbing; 1+ edema Skin: forehead laceration noted Objective Data Vital Signs Vital Signs: Vital Signs Temp Pulse Resp BP Pulse Ox 02/26/21 12:00 71 02/26/21 09:30 79 02/26/21 08:00 81 02/26/21 05:03 36.1 C L 79 14 137/61 97 02/26/21 04:00 81 02/26/21 00:54 82 02/26/21 00:33 36.2 C L 86 20 144/68 H 97 02/25/21 23:30 88 17 149/72 H 95 02/25/21 23:15 89 15 97 02/25/21 23:04 89 02/25/21 23:00 17 95 02/25/21 22:59 89 12 149/72 H 95 02/25/21 22:30 91 3 L 94 02/25/21 22:15 91 15 94 02/25/21 22:00 91 0 L 94 02/25/21 21:45 92 02/25/21 21:30 92 16 02/25/21 21:15 97 23 H 02/25/21 21:00 96 30 H 02/25/21 20:45 96 18 02/25/21 20:30 94 18 02/25/21 20:15 90 19 97 02/25/21 20:00 93 26 H 02/25/21 19:45 91 21 H 02/25/21 19:44 94 20 162/68 H 97 02/25/21 19:30 92 17 02/25/21 19:15 91 16 02/25/21 19:02 96 19 155/79 H 02/25/21 19:00 94
--- NOTE | 2021-02-26 12:53 | P.PNNP_ITS ---
Progress Note: A&P Assessment and Plan (1) SUDHIR (acute kidney injury): Code(s): N17.9 - Acute kidney failure, unspecified Status: Deleted Assessment and Plan: * due to UTI versus prerenal factors versus something else... 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 Olivia) (4) Acute UTI: Code(s): N39.0 - Urinary tract infection, site not specified Status: Acute Assessment and Plan: * seems to be a recurrent issue (likely due to chronic cerna catheter?) * on last hospitalization, his urine culture grew ESBL Klebsiella * on antibiotics (5) Urinary retention: Code(s): R33.9 - Retention of urine, unspecified Status: Chronic Assessment and Plan: * long standing issue/problem * cerna catheter in place * consider replacing if not done recently (6) Acute encephalopathy: Code(s): G93.40 - Encephalopathy, unspecified Status: Acute Assessment and Plan: * presumably due to acute infection/UTI * follow mentation closely (7) Diabetes: Qualifiers: Diabetes mellitus complication detail: with autonomic neuropathy Diabetes mellitus complication status: with neurologic complications Diabetes mellitus heliotherapist insulin use: with senior care use Diabetes mellitus type: type 2 Qualified Code(s): E11.43 - Type 2 diabetes mellitus with diabetic autonomic (poly)neuropathy; Z79.4 - USP (current) use of insulin Code(s): E11.9 - Type 2 diabetes mellitus without complications Status: Chronic Assessment and Plan: * follow accuchecks * glycemic control Will continue to follow. Subjective Date/time seen: 02/26/21 12:53 Chart reviewed; appears somewhat drowsy on my visit but able to answer questions with stimulation; no apparent distress voiced but relays symptoms of pain in his head (due to forehead contusion/lacercation?); no events overnight or earlier this morning. Exam Narrative: General: WD/WN male in NAD Heart: normal S1 and S2; no rub Lungs: clear to auscultation Abdomen: soft, nontender, nondistended, positive bowel sounds Extremities: no cyanosis or clubbing; 1+ edema Skin: forehead laceration noted Objective Data Vital Signs Vital Signs: Vital Signs Temp Pulse Resp BP Pulse Ox 02/26/21 12:00 71 02/26/21 09:30 79 02/26/21 08:00 81 02/26/21 05:03 36.1 C L 79 14 137/61 97 02/26/21 04:00 81 02/26/21 00:54 82 02/26/21 00:33 36.2 C L 86 20 144/68 H 97 02/25/21 23:30 88 17 149/72 H 95 02/25/21 23:15 89
--- NOTE | 2021-02-26 14:54 | PHAR ---
HOME MEDS VERIFIED = [facility] [id number] TACROLIMUS 1MG CAPS 1 CAP BID [id number] MOTEGRITY 2 MG 1 TAB ONCE A DAY
[2021-02-26] MEDS: ERTAPENEM SODIUM 0.5 GM in SODIUM CHLORIDE 0.9% IV 50 ML IVPB (16:38)
[2021-02-26 16:51] LABS: Glucose Point of Care 143 mg/dl (65-105)
[2021-02-26 17:04] LABS: Sodium Urine Random 77 meq/L
[2021-02-26 17:11] LABS: Creatinine Urine 95.6 mg/dL
[2021-02-26 19:41] LABS: Glucose Point of Care 201 mg/dl (65-105)
[2021-02-26] MEDS: TAMSULOSIN HCL 0.4 MG CAPSULE PO (20:05)
[2021-02-26] MEDS: ATORVASTATIN 40 MG TABLET PO (20:05)
[2021-02-26] MEDS: VENLAFAXINE HCL XR 75 MG CAP.ER.24H PO (20:06)
[2021-02-26] MEDS: rOPINIRole HCL 0.125 MG TABLET PO (20:06)
[2021-02-26] MEDS: LATANOPROST 0.005% OP SOLN 2.5 ML BTL 1 DROP EACH EYE (20:08)
[2021-02-27] VITALS (7 sets, daily range): BP systolic 135–153; BP diastolic 60–63; PULSE 76–98; RESP 14–18; TEMP 36.4–36.7; O2SAT 96–98
[2021-02-27 06:46] LABS: Alanine Aminotransferase 6 U/L (4-50); Albumin Level 2.6 g/dL (3.5-5.1); Alkaline Phosphatase 64 U/L (38-126); Anion Gap 6 mmol/L (8-16); Aspartate Amino Transferase 18 U/L (17-59); Bilirubin,Total 0.3 mg/dL (0.2-1.3); Blood Urea Nitrogen 56 mg/dL (9-20); Calcium 8.2 mg/dL (8.4-10.2); Carbon Dioxide 24 mmol/L (22-30); Chloride 105 mmol/L (98-107); Estimated CRCL calculation 18 ml/min; Estimated Glomerular Filt Rate 16; Glucose 121 mg/dL (65-110); Magnesium 1.9 mg/dL (1.6-2.3); Potassium 4.8 mmol/L (3.4-5.0); Sodium 135 mmol/L (137-145)
[2021-02-27 06:48] LABS: Basophils Absolute Auto 0.1 K/mm3 (0.0-0.1); Basophils Percent Auto 0.5 % (0.2-1.2); Eosinophils Absolute Auto 0.2 K/mm3 (0-0.3); Eosinophils Percent Auto 1.5 % (0-4.4); Hematocrit 26.9 % (42.0-52.0); Hemoglobin 8.8 g/dL (14.0-18.0); Immature Granulocyte Absolute 0.05 K/mm3 (0.00-0.031); Immature Granulocyte Percent A 0.5 % (0-0.5); Lymphocytes Absolute Auto 2.99 K/mm3 (0.9-3.2); Lymphocytes Percent Auto 30.3 % (18.3-44.2); Mean Corpuscular HGB Conc 32.7 g/dl (32-36); Mean Corpuscular Hemoglobin 31.8 pg (26-34); Mean Corpuscular Volume 97.1 fl (80-100); Mean Platelet Volume 10.7 fl (7.4-10.4); Monocytes Absolute Auto 0.6 K/mm3 (0.1-0.6); Monocytes Percent Auto 6.4 % (2.6-8.5); Neutrophils Percent Auto 60.8 % (45.5-73.1); Platelet Count Result 192 k/mm3 (150-375); Red Blood Count 2.77 M/mm3 (4.6-6.20); Red Cell Distribution Width 20.7 % (11.5-14.5); White Blood Count 9.9 K/mm3 (4.5-10.0)
[2021-02-27 07:55] LABS: Glucose Point of Care 98 mg/dl (65-105)
[2021-02-27] MEDS: amLODIPine BESYLATE 2.5 MG TABLET PO (10:16)
[2021-02-27] MEDS: allopurinoL 300 MG TABLET PO (10:16)
[2021-02-27] MEDS: CARBIDOPA/LEVODOPA 25/250 MG TABLET 1 TABLET PO ×2 (10:17→16:54)
[2021-02-27] MEDS: carvediloL 12.5 MG TABLET PO ×2 (10:17→20:50)
[2021-02-27] MEDS: APIXABAN 2.5 MG TABLET PO ×2 (10:17→16:55)
[2021-02-27] MEDS: BRIMONIDINE TARTRATE 0.2% OP SOLN 5 ML BTL 1 DROP EACH EYE ×3 (10:17→16:56)
[2021-02-27] MEDS: ASPIRIN 81 MG CHEWABLE TABLET PO (10:17)
[2021-02-27] MEDS: BUMETANIDE 1 MG TABLET PO (10:17)
[2021-02-27] MEDS: FERROUS SULFATE 324 MG TABLET PO (10:18)
[2021-02-27] MEDS: hydrALAZINE HCL 50 MG TABLET 100 MG PO ×3 (10:18→16:53)
[2021-02-27] MEDS: ISOSORBIDE DINITRATE 20 MG TABLET PO ×3 (10:18→18:08)
[2021-02-27] MEDS: GABAPENTIN 100 MG CAPSULE PO (10:18)
[2021-02-27] MEDS: SACCHAROMYCES BOULARDII 250 MG CAPSULE PO ×2 (10:19→16:53)
[2021-02-27] MEDS: predniSONE 5 MG TABLET PO (10:19)
[2021-02-27] MEDS: VITAMIN B CMPLX/VIT C/FOLIC AC 1 CAPSULE 1 CAP PO (10:19)
[2021-02-27] MEDS: PYRIDOXINE HCL 50 MG TABLET 100 MG PO (10:19)
[2021-02-27] MEDS: SILVER SULFADIAZINE 1% CR 50 GM JAR (*BKC) 1 APPLIC TOPICAL ×2 (10:19→16:57)
[2021-02-27] MEDS: PANTOPRAZOLE 40 MG TABLET PO ×2 (10:19→20:50)
[2021-02-27] MEDS: SODIUM BICARBONATE TAB 650 MG TABLET 1300 MG PO ×2 (10:19→16:55)
[2021-02-27 12:00] LABS: Glucose Point of Care 128 mg/dl (65-105)
--- NOTE | 2021-02-27 12:00 | P.PNIM_ITS ---
Progress Note: A&P Assessment and Plan (1) Head injury: Qualifiers: Encounter type: initial encounter Qualified Code(s): S09.90XA - Unspecified injury of head, initial encounter Code(s): S09.90XA - Unspecified injury of head, initial encounter Status: Acute Assessment and Plan: * [facility] at the [facility] * Hit his head * On Eliquis at home * Head ct showed normal aging brain * The patient had 3 sutures placed to the forehead per ED * Repeat head ct due to complaints of pressure and pain * Brain MRI old stroke (2) Acute on chronic kidney failure: Qualifiers: Acute renal failure type: unspecified Chronic kidney disease stage: stage 4 (severe) Qualified Code(s): N17.9 - Acute kidney failure, unspecified; N18.4 - Chronic kidney disease, stage 4 (severe) Code(s): N17.9 - Acute kidney failure, unspecified; N18.9 - Chronic kidney disease, unspecified Status: Acute Assessment and Plan: * Chronic kidney disease * kidney transplant and has gradually been deteriorating. * Nephrology has been consulted * creatinine is anywhere from 2.5-3.5 * Continue with home medications * Anti rejection medication from home * Hold any nephrotoxic medication * Renal ultrasound showed minimal hydronephrosis in the left pelvic transplants kidney,Atrophy and markedly echogenic bilateral [place] kidneys consistent with chronic renal disease. Shadowing echogenic focus at the right kidney which could represent a nonobstructing stone or more likely atherosclerotic calcification of the renal vasculature. * Chronic catheter * Monitor labs (3) Depression: Qualifiers: Depression Type: unspecified Qualified Code(s): F32.9 - Major depressive disorder, single episode, unspecified Code(s): F32.9 - Major depressive disorder, single episode, unspecified Status: Chronic Assessment and Plan: * Continue with home medications. (4) BPH (benign prostatic hyperplasia): Code(s): N40.0 - Benign prostatic hyperplasia without lower urinary tract symptoms Status: Chronic Assessment and Plan: * Continue with tamsulosin * Trend urine output (5) Glaucoma: Code(s): H40.9 - Unspecified glaucoma Status: Chronic Assessment and Plan: * Continue with home eye drops (6) Gout: Qualifiers: Gout site: unspecified site Gout etiology: unspecified cause Chronicity: acute Qualified Code(s): M10.9 - Gout, unspecified Code(s): M10.9 - Gout, unspecified Status: Acute Assessment and Plan: * Continue with home medication (7) HTN (hypertension): Qualifiers: Hypertension type: essential hypertension Qualified Code(s): I10 - Essential (primary) hypertension Code(s): I10 - Essential (primary) hypertension Status: Chronic Assessment and Plan: * BP 135/62 * Continue with Coreg and amlodipine * Trend BP * Adjust therapy as indicated (8) HLD (hyperlipidemia): Qualifiers: Hyperlipidemia type: unspecified Qualified Code(s): E78.5 - Hyperlipidemia, unspecified Code(s): E78.5 - Hyperlipidemia, unspecified Status: Chronic Assessment and Plan: * Continue with atorvastatin (9) Diabetes: Qualifiers: Diabetes mellitus type: type 2 Diabetes mellitus retirement insulin us
--- NOTE | 2021-02-27 12:00 | PM.IMPN ---
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 Nephrology has been consulted creatinine is anywhere from 2.5-3.5 Continue with home medications Anti rejection medication from home Hold any nephrotoxic medication Renal ultrasound showed minimal hydronephrosis in the left pelvic transplants kidney,Atrophy and markedly echogenic bilateral [place] kidneys consistent with chronic renal disease. Shadowing echogenic focus at the right kidney which could represent a nonobstructing stone or more likely atherosclerotic calcification of the renal vasculature. Chronic catheter Monitor labs (3) Depression: Qualifiers: Depression Type: unspecified Qualified Code(s): F32.9 - Major depressive disorder, single episode, unspecified Code(s): F32.9 - Major depressive disorder, single episode, unspecified Status: Chronic Assessment and Plan: Continue with home medications. (4) BPH (benign prostatic hyperplasia): Code(s): N40.0 - Benign prostatic hyperplasia without lower urinary tract symptoms Status: Chronic Assessment and Plan: Continue with tamsulosin Trend urine output (5) Glaucoma: Code(s): H40.9 - Unspecified glaucoma Status: Chronic Assessment and Plan: Continue with home eye drops (6) Gout: Qualifiers: Gout site: unspecified site Gout etiology: unspecified cause Chronicity: acute Qualified Code(s): M10.9 - Gout, unspecified Code(s): M10.9 - Gout, unspecified Status: Acute Assessment and Plan: Continue with home medication (7) HTN (hypertension): Qualifiers: Hypertension type: essential hypertension Qualified Code(s): I10 - Essential (primary) hypertension Code(s): I10 - Essential (primary) hypertension Status: Chronic Assessment and Plan: BP 135/62 Continue with Coreg and amlodipine Trend BP Adjust therapy as indicated (8) HLD (hyperlipidemia): Qualifiers: Hyperlipidemia type: unspecified Qualified Code(s): E78.5 - Hyperlipidemia, unspecified Code(s): E78.5 - Hyperlipidemia, unspecified Status: Chronic Assessment and Plan: Continue with atorvastatin (9) Diabetes: Qualifiers: Diabetes mellitus type: type 2 Diabetes mellitus prison insulin use: with local intermodal truck driver use Diabetes mellitus complication status: with neurologic complications Diabetes mellitus complication detail: with autonomic neuropathy Qualified Code(s): E11.43 - Type 2 diabetes mellitus with diabetic autonomic (poly)neuropathy; Z79.4 - intermediate designer (current) use of insulin Code(s): E11.9 - Type 2 diabetes mellitus without complications Status: Chronic Assessment and Plan: Accu-Cheks AC and HS. sliding scale (10) Renal transplant recipient: Code(s): Z94.0 - Kidney transpl
[2021-02-27] MEDS: CARBIDOPA/LEVODOPA 25/100 MG TABLET 2 TABLET PO ×2 (12:15→20:50)
--- NOTE | 2021-02-27 12:43 | P.PNNP_ITS ---
Progress Note: A&P Assessment and Plan (1) SUDHIR (acute kidney injury): Code(s): N17.9 - Acute kidney failure, unspecified Status: Deleted Assessment and Plan: * due to UTI versus prerenal factors versus something else... 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 Olivia) (4) Acute UTI: Code(s): N39.0 - Urinary tract infection, site not specified Status: Acute Assessment and Plan: * seems to be a recurrent issue (likely due to chronic cerna catheter?) * on last hospitalization, his urine culture grew ESBL Klebsiella * on antibiotics (5) Urinary retention: Code(s): R33.9 - Retention of urine, unspecified Status: Chronic Assessment and Plan: * long standing issue/problem * cerna catheter in place * consider replacing if not done recently (6) Acute encephalopathy: Code(s): G93.40 - Encephalopathy, unspecified Status: Acute Assessment and Plan: * presumably due to acute infection/UTI * follow mentation closely (7) Diabetes: Qualifiers: Diabetes mellitus type: type 2 Diabetes mellitus long-term insulin use: with long-term use Diabetes mellitus complication status: with neurologic complications Diabetes mellitus complication detail: with autonomic neuropathy Qualified Code(s): E11.43 - Type 2 diabetes mellitus with diabetic autonomic (poly)neuropathy; Z79.4 - long term care administrator (current) use of insulin Code(s): E11.9 - Type 2 diabetes mellitus without complications Status: Chronic Assessment and Plan: * follow accuchecks * glycemic control Will continue to follow. Subjective Date/time seen: 02/27/21 12:43 Overall, states that he does feel better today; eating and drinking okay; renal/kidney function remains about the same; results of head CT and brain MRI noted; no events/issues overnight or earlier this morning; no distress voiced at the time of my visit. Exam Narrative: General: WD/WN male in NAD Heart: normal S1 and S2; no rub Lungs: clear to auscultation Abdomen: soft, nontender, nondistended, positive bowel sounds Extremities: no cyanosis or clubbing; 1+ edema Skin: forehead laceration present Objective Data Vital Signs Vital Signs: Vital Signs Temp Pulse Resp BP Pulse Ox 02/27/21 08:00 76 02/27/21 06:00 36.7 C 80 18 135/62 98 02/27/21 04:00 90 02/27/21 00:00 90 02/26/21 21:09 36.1 C L 75 18 129/56 L 98 02/26/21 20:05 77 02/26/21 20:00 76 Intake/Output Intake/Output: Intake & Output
--- NOTE | 2021-02-27 12:43 | PM.PNNEP ---
Progress Note: A&P Assessment and Plan (1) SUDHIR (acute kidney injury): Code(s): N17.9 - Acute kidney failure, unspecified Status: Deleted Assessment and Plan: due to UTI versus prerenal factors versus something else... 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 Olivia) (4) Acute UTI: Code(s): N39.0 - Urinary tract infection, site not specified Status: Acute Assessment and Plan: seems to be a recurrent issue (likely due to chronic cerna catheter?) on last hospitalization, his urine culture grew ESBL Klebsiella on antibiotics (5) Urinary retention: Code(s): R33.9 - Retention of urine, unspecified Status: Chronic Assessment and Plan: long standing issue/problem cerna catheter in place consider replacing if not done recently (6) Acute encephalopathy: Code(s): G93.40 - Encephalopathy, unspecified Status: Acute Assessment and Plan: presumably due to acute infection/UTI follow mentation closely (7) Diabetes: Qualifiers: Diabetes mellitus type: type 2 Diabetes mellitus rodent exterminator insulin use: with rodent exterminator use Diabetes mellitus complication status: with neurologic complications Diabetes mellitus complication detail: with autonomic neuropathy Qualified Code(s): E11.43 - Type 2 diabetes mellitus with diabetic autonomic (poly)neuropathy; Z79.4 - FPC (current) use of insulin Code(s): E11.9 - Type 2 diabetes mellitus without complications Status: Chronic Assessment and Plan: follow accuchecks glycemic control Will continue to follow. Subjective Date/time seen: 02/27/21 12:43 Overall, states that he does feel better today; eating and drinking okay; renal/kidney function remains about the same; results of head CT and brain MRI noted; no events/issues overnight or earlier this morning; no distress voiced at the time of my visit. Exam Narrative: General: WD/WN male in NAD Heart: normal S1 and S2; no rub Lungs: clear to auscultation Abdomen: soft, nontender, nondistended, positive bowel sounds Extremities: no cyanosis or clubbing; 1+ edema Skin: forehead laceration present Objective Data Vital Signs Vital Signs: Vital Signs Temp Pulse Resp BP Pulse Ox 02/27/21 08:00 76 02/27/21 06:00 36.7 C 80 18 135/62 98 02/27/21 04:00 90 02/27/21 00:00 90 02/26/21 21:09 36.1 C L 75 18 129/56 L 98 02/26/21 20:05 77 02/26/21 20:00 76 Intake/Output Intake/Output: Intake & Output 02/24/21 02/25/21 02/26/21 02/27/21 23:59 23:59 23:59 23:59 Intake Total 50 530 780 Output Total 125 950 Balance 50 405 -170 Meds/Results Medications: Active Medications Generic Name Dose Route Start Last Admin Trade Name Freq PRN Reason Stop Dose Admin Acetaminophen 650 mg 02/25/21 20:14 Acetaminophen 325 Mg Tablet PO Q6H PRN Mild Pain (1-3) Or Fever Albuterol 2 puff 02/25/21 20:14 Albuterol Sulfate (*Sp) Aerosol 1 Puff INHALATION Q6HRT PRN Shortness Of Breath Allopurinol 300 mg 02/26/21 09:00 02/27/21 10:16 Allopurinol 300 Mg Tablet PO 300 mg DAILY
[2021-02-27 16:35] LABS: Glucose Point of Care 208 mg/dl (65-105)
[2021-02-27] MEDS: INSULIN ASPART (*BKC) 100 UNITS/ML SUB-Q (16:59)
[2021-02-27] MEDS: ERTAPENEM SODIUM 0.5 GM in SODIUM CHLORIDE 0.9% IV 50 ML IVPB (16:59)
[2021-02-27 18:03] LABS: Add Urine Microscopic? YES; Appearance Urine Clear (Clear); Bilirubin Urine Negative (Negative); Blood Urine 2+ (Negative); Color Urine Yellow (Yellow); Glucose Urine UA 2+ mg/dL (Negative); Ketones Urine Negative (Negative); Leukocyte Esterase Ur 1+ LEU/UL (Negative); Mucus Urine Rare /lpf; Nitrate Urine Negative (Negative); Protein Urine 2+ mg/dL (Negative); RBC Urine 21-50 /hpf (0-2); Specific Grav Ur 1.017 (1.001-1.035); Urobilinogen Urine Negative mg/dL (<2.0); WBC Urine 31-50 /hpf
[2021-02-27 20:49] LABS: Glucose Point of Care 204 mg/dl (65-105)
[2021-02-27] MEDS: INSULIN GLARGINE (*BKC) 100 UNITS/ML 15 UNITS SUB-Q (20:49)
[2021-02-27] MEDS: VENLAFAXINE HCL XR 75 MG CAP.ER.24H PO (20:50)
[2021-02-27] MEDS: TAMSULOSIN HCL 0.4 MG CAPSULE PO (20:50)
[2021-02-27] MEDS: rOPINIRole HCL 0.125 MG TABLET PO (20:50)
[2021-02-27] MEDS: LATANOPROST 0.005% OP SOLN 2.5 ML BTL 1 DROP EACH EYE (20:51)
[2021-02-27] MEDS: ATORVASTATIN 40 MG TABLET PO (20:51)
[2021-02-28 04:59] VITALS: BP 142/62; PULSE 80; RESP 16; TEMP 36.3; O2SAT 96
[2021-02-28 06:03] LABS: Basophils Percent Auto 0.4 % (0.2-1.2); Eosinophils Absolute Auto 0.1 K/mm3 (0-0.3); Eosinophils Percent Auto 1.2 % (0-4.4); Hematocrit 27.8 % (42.0-52.0); Immature Granulocyte Absolute 0.05 K/mm3 (0.00-0.031); Immature Granulocyte Percent A 0.5 % (0-0.5); Lymphocytes Absolute Auto 3.25 K/mm3 (0.9-3.2); Mean Corpuscular HGB Conc 32.4 g/dl (32-36); Mean Corpuscular Hemoglobin 31.3 pg (26-34); Mean Corpuscular Volume 96.5 fl (80-100); Mean Platelet Volume 9.9 fl (7.4-10.4); Monocytes Absolute Auto 0.7 K/mm3 (0.1-0.6); Monocytes Percent Auto 6.5 % (2.6-8.5); Neutrophils Absolute Auto 6.4 K/mm3 (1.3-6.7); Neutrophils Percent Auto 60.4 % (45.5-73.1); Platelet Count Result 183 k/mm3 (150-375); Red Blood Count 2.88 M/mm3 (4.6-6.20); Red Cell Distribution Width 20.4 % (11.5-14.5); White Blood Count 10.5 K/mm3 (4.5-10.0)
[2021-02-28 06:34] LABS: Albumin Level 2.5 g/dL (3.5-5.1); Alkaline Phosphatase 60 U/L (38-126); Anion Gap 7 mmol/L (8-16); Aspartate Amino Transferase 18 U/L (17-59); Bilirubin,Total 0.4 mg/dL (0.2-1.3); Blood Urea Nitrogen 54 mg/dL (9-20); Calcium 8.2 mg/dL (8.4-10.2); Carbon Dioxide 24 mmol/L (22-30); Chloride 107 mmol/L (98-107); Estimated CRCL calculation 20 ml/min; Estimated Glomerular Filt Rate 17; Glucose 60 mg/dL (65-110); Magnesium 1.8 mg/dL (1.6-2.3); Potassium 4.5 mmol/L (3.4-5.0); Sodium 138 mmol/L (137-145)
[2021-02-28 07:11] LABS: Alanine Aminotransferase < 6 U/L (4-50)
--- NOTE | 2021-02-28 07:15 | P.PNIM_ITS ---
Progress Note: A&P Assessment and Plan (1) Hypoglycemia: Code(s): E16.2 - Hypoglycemia, unspecified Status: Acute Assessment and Plan: * Glucose 60 on labs * Random glucose 34 * D50 given * Recheck 90s * Continue to trend (2) Head injury: Qualifiers: Encounter type: initial encounter Qualified Code(s): S09.90XA - Unspecified injury of head, initial encounter Code(s): S09.90XA - Unspecified injury of head, initial encounter Status: Acute Assessment and Plan: * Fell out the wheel chair at the group home * Hit his head * On Eliquis at home * Head ct showed normal aging brain * The patient had 3 sutures placed to the forehead per ED * Repeat head ct due to complaints of pressure and pain * Brain 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 * kidney transplant and has gradually been deteriorating. * Nephrology has been consulted * creatinine is anywhere from 2.5-3.5 * Continue with home medications * Anti rejection medication from home * Hold any nephrotoxic medication * Renal ultrasound showed minimal hydronephrosis in the left pelvic transplants kidney,Atrophy and markedly echogenic bilateral [place] kidneys consistent with chronic renal disease. Shadowing echogenic focus at the right kidney which could represent a nonobstructing stone or more likely atherosclerotic calcification of the renal vasculature. * Chronic catheter * Monitor labs (4) Depression: Qualifiers: Depression Type: unspecified Qualified Code(s): F32.9 - Major depressive disorder, single episode, unspecified Code(s): F32.9 - Major depressive disorder, single episode, unspecified Status: Chronic Assessment and Plan: * Continue with home medications. (5) BPH (benign prostatic hyperplasia): Code(s): N40.0 - Benign prostatic hyperplasia without lower urinary tract symptoms Status: Chronic Assessment and Plan: * Continue with tamsulosin * Trend urine output (6) Glaucoma: Code(s): H40.9 - Unspecified glaucoma Status: Chronic Assessment and Plan: * Continue with home eye drops (7) Gout: Qualifiers: Chronicity: acute Gout etiology: unspecified cause Gout site: unspecified site Qualified Code(s): M10.9 - Gout, unspecified Code(s): M10.9 - Gout, unspecified Status: Acute Assessment and Plan: * Continue with home medication (8) HTN (hypertension): Qualifiers: Hypertension type: essential hypertension Qualified Code(s): I10 - Essential (primary) hypertension Code(s): I10 - Essential (primary) hypertension Status: Chronic Assessment and Plan: * BP 142/62 * Continue with Coreg and amlodipine * Trend BP * Adjust therapy as indicated (9) HLD (hyperlipidemia): Qualifiers: Hyperlipidemia type: unspeci
--- NOTE | 2021-02-28 07:15 | PM.IMPN ---
Progress Note: A&P Assessment and Plan (1) Hypoglycemia: Code(s): E16.2 - Hypoglycemia, unspecified Status: Acute Assessment and Plan: Glucose 60 on labs Random glucose 34 D50 given Recheck 90s Continue to trend (2) Head injury: Qualifiers: Encounter type: initial encounter Qualified Code(s): S09.90XA - Unspecified injury of head, initial encounter Code(s): S09.90XA - Unspecified injury of head, initial encounter Status: Acute Assessment and Plan: [facility] his head On Eliquis at home Head ct showed normal aging brain The patient had 3 sutures placed to the forehead per ED Repeat head ct due to complaints of pressure and pain Brain 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 kidney transplant and has gradually been deteriorating. Nephrology has been consulted creatinine is anywhere from 2.5-3.5 Continue with home medications Anti rejection medication from home Hold any nephrotoxic medication Renal ultrasound showed minimal hydronephrosis in the left pelvic transplants kidney,Atrophy and markedly echogenic bilateral [place] kidneys consistent with chronic renal disease. Shadowing echogenic focus at the right kidney which could represent a nonobstructing stone or more likely atherosclerotic calcification of the renal vasculature. Chronic catheter Monitor labs (4) Depression: Qualifiers: Depression Type: unspecified Qualified Code(s): F32.9 - Major depressive disorder, single episode, unspecified Code(s): F32.9 - Major depressive disorder, single episode, unspecified Status: Chronic Assessment and Plan: Continue with home medications. (5) BPH (benign prostatic hyperplasia): Code(s): N40.0 - Benign prostatic hyperplasia without lower urinary tract symptoms Status: Chronic Assessment and Plan: Continue with tamsulosin Trend urine output (6) Glaucoma: Code(s): H40.9 - Unspecified glaucoma Status: Chronic Assessment and Plan: Continue with home eye drops (7) Gout: Qualifiers: Chronicity: acute Gout etiology: unspecified cause Gout site: unspecified site Qualified Code(s): M10.9 - Gout, unspecified Code(s): M10.9 - Gout, unspecified Status: Acute Assessment and Plan: Continue with home medication (8) HTN (hypertension): Qualifiers: Hypertension type: essential hypertension Qualified Code(s): I10 - Essential (primary) hypertension Code(s): I10 - Essential (primary) hypertension Status: Chronic Assessment and Plan: BP 142/62 Continue with Coreg and amlodipine Trend BP Adjust therapy as indicated (9) HLD (hyperlipidemia): Qualifiers: Hyperlipidemia type: unspecified Qualified Code(s): E78.5 - Hyperlipidemia, unspecified Code(s): E78.5 - Hyperlipidemia, unspecified Status: Chronic Assessment and Plan: Continue with atorvastatin (10) Diabetes: Qualifiers: Diabetes mellitus complication detail: with autonomic neuropathy Diabetes mellitus complication status: with neurologic complications Diabetes mellitus correction insulin use: with long term care phlebotomist use Diabetes mellitus type: type 2 Qualified Code(s): E11.43 - Type 2 diabetes mellitus with diabetic autonomic (poly
[2021-02-28 07:57] LABS: Glucose Point of Care 34 mg/dl (65-105)
[2021-02-28] MEDS: DEXTROSE 50% 25 GM/50 ML SYRINGE IV PUSH (07:57)
[2021-02-28] MEDS: hydrALAZINE HCL 50 MG TABLET 100 MG PO ×3 (08:04→17:47)
[2021-02-28] MEDS: VITAMIN B CMPLX/VIT C/FOLIC AC 1 CAPSULE 1 CAP PO (08:05)
[2021-02-28] MEDS: FERROUS SULFATE 324 MG TABLET PO (08:05)
[2021-02-28] MEDS: SODIUM BICARBONATE TAB 650 MG TABLET 1300 MG PO ×2 (08:05→17:49)
[2021-02-28] MEDS: ASPIRIN 81 MG CHEWABLE TABLET PO (08:05)
[2021-02-28] MEDS: allopurinoL 300 MG TABLET PO (08:05)
[2021-02-28] MEDS: calcitrioL 0.25 MCG CAPSULE 0.5 MCG PO (08:05)
[2021-02-28] MEDS: BUMETANIDE 1 MG TABLET PO (08:06)
[2021-02-28] MEDS: amLODIPine BESYLATE 2.5 MG TABLET PO (08:06)
[2021-02-28] MEDS: GABAPENTIN 100 MG CAPSULE PO (08:06)
[2021-02-28 08:07] VITALS: PULSE 76
[2021-02-28] MEDS: predniSONE 5 MG TABLET PO (08:07)
[2021-02-28] MEDS: CARBIDOPA/LEVODOPA 25/250 MG TABLET 1 TABLET PO ×2 (08:07→17:49)
[2021-02-28] MEDS: SACCHAROMYCES BOULARDII 250 MG CAPSULE PO ×2 (08:07→17:48)
[2021-02-28] MEDS: APIXABAN 2.5 MG TABLET PO ×2 (08:07→17:49)
[2021-02-28] MEDS: carvediloL 12.5 MG TABLET PO ×2 (08:07→20:25)
[2021-02-28] MEDS: ISOSORBIDE DINITRATE 20 MG TABLET PO ×3 (08:08→17:47)
[2021-02-28] MEDS: BRIMONIDINE TARTRATE 0.2% OP SOLN 5 ML BTL 1 DROP EACH EYE ×3 (08:08→17:48)
[2021-02-28] MEDS: PANTOPRAZOLE 40 MG TABLET PO ×2 (08:08→20:25)
[2021-02-28] MEDS: SILVER SULFADIAZINE 1% CR 50 GM JAR (*BKC) 1 APPLIC TOPICAL (08:10)
[2021-02-28 08:16] LABS: Glucose Point of Care 96 mg/dl (65-105)
--- NOTE | 2021-02-28 10:43 | P.PNNP_ITS ---
Progress Note: A&P Assessment and Plan (1) SUDHIR (acute kidney injury): Code(s): N17.9 - Acute kidney failure, unspecified Status: Deleted Assessment and Plan: * due to UTI versus prerenal factors versus something else... * his renal function/creatinine is well known to fluctuate to extremes in general for the last year * transplant renal ultrasound noted * urine electrolytes non-prerenal * creatinine is about the same. * Last time this happened it took a long time for him to recover kidney function. * He has no uremic symptoms so we can just continue to watch right now. 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 Olivia) (4) Acute UTI: Code(s): N39.0 - Urinary tract infection, site not specified Status: Acute Assessment and Plan: * seems to be a recurrent issue (likely due to chronic cerna catheter?) * on last hospitalization, his urine culture grew ESBL Klebsiella * on antibiotics (5) Urinary retention: Code(s): R33.9 - Retention of urine, unspecified Status: Chronic Assessment and Plan: * long standing issue/problem * cerna catheter in place * consider replacing if not done recently (6) Acute encephalopathy: Code(s): G93.40 - Encephalopathy, unspecified Status: Acute Assessment and Plan: * presumably due to acute infection/UTI * follow mentation closely (7) Diabetes: Qualifiers: Diabetes mellitus type: type 2 Diabetes mellitus ocean transportation intermediary insulin use: with skilled nursing use Diabetes mellitus complication status: with neurologic complications Diabetes mellitus complication detail: with autonomic neuropathy Qualified Code(s): E11.43 - Type 2 diabetes mellitus with diabetic autonomic (poly)neuropathy; Z79.4 - manager intermediate (current) use of insulin Code(s): E11.9 - Type 2 diabetes mellitus without complications Status: Chronic Assessment and Plan: * follow accuchecks * Sugars were low yesterday. Insulin adjusted. * glycemic control Will continue to follow. Subjective Date/time seen: 02/28/21 10:43 Interval history: patient is feeling okay this morning. He still has diarrhea. His cut thorax are on hold. He is alert and oriented and feels okay. He is eating well Exam Narrative: General: WD/WN male in NAD Heart: normal S1 and S2; no rub or gallop Lungs: clear to auscultation Abdomen: soft, nontender, nondistended, positive bowel sounds Extremities: no cyanosis or clubbing; 1+ edema Skin: forehead laceration present. Otherwise no rash Objective Data Vital Signs Vital Signs: Vital Signs - 24 hr 02/27/21 14:00 02/27/21 20:41 02/27/21 20:50 Temperature 36.4 C L 36.6 C Pulse Rate 87 98 93 Respiratory Rate 14 18 Blood Pressure 143/60 H 153/63 H Pulse Oximetry 96 97
--- NOTE | 2021-02-28 10:43 | PM.PNNEP ---
Progress Note: A&P Assessment and Plan (1) SUDHIR (acute kidney injury): Code(s): N17.9 - Acute kidney failure, unspecified Status: Deleted Assessment and Plan: due to UTI versus prerenal factors versus something else... his renal function/creatinine is well known to fluctuate to extremes in general for the last year transplant renal ultrasound noted urine electrolytes non-prerenal creatinine is about the same. Last time this happened it took a long time for him to recover kidney function. He has no uremic symptoms so we can just continue to watch right now. 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 Olivia) (4) Acute UTI: Code(s): N39.0 - Urinary tract infection, site not specified Status: Acute Assessment and Plan: seems to be a recurrent issue (likely due to chronic cerna catheter?) on last hospitalization, his urine culture grew ESBL Klebsiella on antibiotics (5) Urinary retention: Code(s): R33.9 - Retention of urine, unspecified Status: Chronic Assessment and Plan: long standing issue/problem cerna catheter in place consider replacing if not done recently (6) Acute encephalopathy: Code(s): G93.40 - Encephalopathy, unspecified Status: Acute Assessment and Plan: presumably due to acute infection/UTI follow mentation closely (7) Diabetes: Qualifiers: Diabetes mellitus type: type 2 Diabetes mellitus usp insulin use: with usp use Diabetes mellitus complication status: with neurologic complications Diabetes mellitus complication detail: with autonomic neuropathy Qualified Code(s): E11.43 - Type 2 diabetes mellitus with diabetic autonomic (poly)neuropathy; Z79.4 - terminal computer operator (current) use of insulin Code(s): E11.9 - Type 2 diabetes mellitus without complications Status: Chronic Assessment and Plan: follow accuchecks Sugars were low yesterday. Insulin adjusted. glycemic control Will continue to follow. Subjective Date/time seen: 02/28/21 10:43 Interval history: patient is feeling okay this morning. He still has diarrhea. His cut thorax are on hold. He is alert and oriented and feels okay. He is eating well Exam Narrative: General: WD/WN male in NAD Heart: normal S1 and S2; no rub or gallop Lungs: clear to auscultation Abdomen: soft, nontender, nondistended, positive bowel sounds Extremities: no cyanosis or clubbing; 1+ edema Skin: forehead laceration present. Otherwise no rash Objective Data Vital Signs Vital Signs: Vital Signs - 24 hr 02/27/21 14:00 02/27/21 20:41 02/27/21 20:50 Temperature 36.4 C L 36.6 C Pulse Rate 87 98 93 Respiratory Rate 14 18 Blood Pressure 143/60 H 153/63 H Pulse Oximetry 96 97 02/28/21 04:59 02/28/21 08:07 Temperature 36.3 C L Pulse Rate 80 76 Respiratory Rate 16 Blood Pressure 142/62 H Pulse Oximetry 96 Intake/Output Intake/Output: Intake & Output 02/25/21 02/26/21 02/27/21 02/28/21 23:59 23:59 23:59 23:59 Intake Total 50 530 1260 590 Output Total 125 1350 450 Balance 50 405 -90 140 Meds/Results Medications: Active Medications Generic Name Dose Route Start Last Admin Trade Name Freq PRN Reason Stop Dose Admin Acetaminophen 650 mg 02/25/21 20:14 Acetaminophen 325 Mg Tablet PO Q6H PRN
[2021-02-28] MEDS: PYRIDOXINE HCL 50 MG TABLET 100 MG PO (11:16)
[2021-02-28 11:23] LABS: Glucose Point of Care 108 mg/dl (65-105)
[2021-02-28] MEDS: CARBIDOPA/LEVODOPA 25/100 MG TABLET 2 TABLET PO ×2 (12:27→20:25)
[2021-02-28 14:00] VITALS: BP 128/50; PULSE 76; RESP 18; TEMP 36.2; O2SAT 97
[2021-02-28 16:26] LABS: Glucose Point of Care 176 mg/dl (65-105)
[2021-02-28] MEDS: ERTAPENEM SODIUM 0.5 GM in SODIUM CHLORIDE 0.9% IV 50 ML IVPB (17:46)
[2021-02-28 20:00] VITALS: PULSE 94; RESP 18; O2SAT 96
[2021-02-28 20:25] VITALS: PULSE 70
[2021-02-28] MEDS: ATORVASTATIN 40 MG TABLET PO (20:25)
[2021-02-28] MEDS: TAMSULOSIN HCL 0.4 MG CAPSULE PO (20:25)
[2021-02-28] MEDS: rOPINIRole HCL 0.125 MG TABLET PO (20:25)
[2021-02-28] MEDS: LATANOPROST 0.005% OP SOLN 2.5 ML BTL 1 DROP EACH EYE (20:25)
[2021-02-28] MEDS: VENLAFAXINE HCL XR 75 MG CAP.ER.24H PO (20:25)
[2021-02-28] MEDS: INSULIN GLARGINE (*BKC) 100 UNITS/ML 15 UNITS SUB-Q (20:29)
[2021-02-28 20:35] LABS: Glucose Point of Care 250 mg/dl (65-105)
[2021-02-28 22:00] VITALS: BP 148/65; PULSE 94; RESP 18; TEMP 37; O2SAT 96
[2021-03-01 06:00] VITALS: BP 174/72; PULSE 91; RESP 20; TEMP 36.9; O2SAT 98
[2021-03-01 06:10] LABS: Basophils Absolute Auto 0.1 K/mm3 (0.0-0.1); Basophils Percent Auto 0.6 % (0.2-1.2); Eosinophils Absolute Auto 0.1 K/mm3 (0-0.3); Eosinophils Percent Auto 1.2 % (0-4.4); Hematocrit 27.8 % (42.0-52.0); Immature Granulocyte Absolute 0.06 K/mm3 (0.00-0.031); Immature Granulocyte Percent A 0.6 % (0-0.5); Lymphocytes Absolute Auto 2.94 K/mm3 (0.9-3.2); Mean Corpuscular HGB Conc 32.4 g/dl (32-36); Mean Corpuscular Hemoglobin 30.6 pg (26-34); Mean Corpuscular Volume 94.6 fl (80-100); Mean Platelet Volume 10.5 fl (7.4-10.4); Monocytes Absolute Auto 0.7 K/mm3 (0.1-0.6); Neutrophils Absolute Auto 6.2 K/mm3 (1.3-6.7); Neutrophils Percent Auto 61.6 % (45.5-73.1); Platelet Count Result 212 k/mm3 (150-375); Red Blood Count 2.94 M/mm3 (4.6-6.20); Red Cell Distribution Width 20.2 % (11.5-14.5); White Blood Count 10.1 K/mm3 (4.5-10.0)
[2021-03-01 06:14] LABS: Alanine Aminotransferase 6 U/L (4-50); Albumin Level 2.6 g/dL (3.5-5.1); Alkaline Phosphatase 65 U/L (38-126); Anion Gap 8 mmol/L (8-16); Aspartate Amino Transferase 18 U/L (17-59); Bilirubin,Total 0.3 mg/dL (0.2-1.3); Blood Urea Nitrogen 51 mg/dL (9-20); Calcium 8.2 mg/dL (8.4-10.2); Carbon Dioxide 22 mmol/L (22-30); Chloride 102 mmol/L (98-107); Estimated CRCL calculation 17 ml/min; Estimated Glomerular Filt Rate 15; Glucose 191 mg/dL (65-110); Magnesium 1.8 mg/dL (1.6-2.3); Potassium 4.7 mmol/L (3.4-5.0); Sodium 132 mmol/L (137-145)
[2021-03-01 07:51] LABS: Glucose Point of Care 160 mg/dl (65-105)
[2021-03-01] MEDS: SACCHAROMYCES BOULARDII 250 MG CAPSULE PO ×2 (08:37→16:56)
[2021-03-01] MEDS: PYRIDOXINE HCL 50 MG TABLET 100 MG PO (08:38)
[2021-03-01] MEDS: SODIUM BICARBONATE TAB 650 MG TABLET 1300 MG PO (08:38)
[2021-03-01] MEDS: hydrALAZINE HCL 50 MG TABLET 100 MG PO ×3 (08:38→16:54)
[2021-03-01 08:39] VITALS: PULSE 91
[2021-03-01] MEDS: carvediloL 12.5 MG TABLET PO ×2 (08:39→20:52)
[2021-03-01] MEDS: VITAMIN B CMPLX/VIT C/FOLIC AC 1 CAPSULE 1 CAP PO (08:39)
[2021-03-01] MEDS: ISOSORBIDE DINITRATE 20 MG TABLET PO ×3 (08:40→16:57)
[2021-03-01] MEDS: ASPIRIN 81 MG CHEWABLE TABLET PO (08:40)
[2021-03-01] MEDS: BRIMONIDINE TARTRATE 0.2% OP SOLN 5 ML BTL 1 DROP EACH EYE ×3 (08:40→16:54)
[2021-03-01] MEDS: FERROUS SULFATE 324 MG TABLET PO (08:40)
[2021-03-01] MEDS: BUMETANIDE 1 MG TABLET PO (08:40)
[2021-03-01] MEDS: amLODIPine BESYLATE 2.5 MG TABLET PO (08:40)
[2021-03-01] MEDS: allopurinoL 300 MG TABLET PO (08:40)
[2021-03-01] MEDS: CARBIDOPA/LEVODOPA 25/250 MG TABLET 1 TABLET PO ×2 (08:40→16:54)
[2021-03-01] MEDS: APIXABAN 2.5 MG TABLET PO ×2 (08:41→16:55)
[2021-03-01] MEDS: GABAPENTIN 100 MG CAPSULE PO (08:41)
[2021-03-01] MEDS: predniSONE 5 MG TABLET PO (08:42)
[2021-03-01] MEDS: PANTOPRAZOLE 40 MG TABLET PO (08:42)
--- NOTE | 2021-03-01 10:00 | P.PNIM_ITS ---
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 * kidney transplant and has gradually been deteriorating. * Nephrology has been consulted * creatinine is anywhere from 2.5-3.5 * Continue with home medications * Anti rejection medication from home * Hold any nephrotoxic medication * Renal ultrasound showed minimal hydronephrosis in the left pelvic transplants kidney,Atrophy and markedly echogenic bilateral [place] kidneys consistent with chronic renal disease. Shadowing echogenic focus at the right kidney which could represent a nonobstructing stone or more likely atherosclerotic calcification of the renal vasculature. * Chronic catheter * Monitor labs (3) Depression: Qualifiers: Depression Type: unspecified Qualified Code(s): F32.9 - Major depressive disorder, single episode, unspecified Code(s): F32.9 - Major depressive disorder, single episode, unspecified Status: Chronic Assessment and Plan: * Continue with home medications. (4) BPH (benign prostatic hyperplasia): Code(s): N40.0 - Benign prostatic hyperplasia without lower urinary tract symptoms Status: Chronic Assessment and Plan: * Continue with tamsulosin * Trend urine output (5) Glaucoma: Code(s): H40.9 - Unspecified glaucoma Status: Chronic Assessment and Plan: * Continue with home eye drops (6) Gout: Qualifiers: Chronicity: acute Gout etiology: unspecified cause Gout site: unspecified site Qualified Code(s): M10.9 - Gout, unspecified Code(s): M10.9 - Gout, unspecified Status: Acute Assessment and Plan: * Continue with home medication (7) HTN (hypertension): Qualifiers: Hypertension type: essential hypertension Qualified Code(s): I10 - Essential (primary) hypertension Code(s): I10 - Essential (primary) hypertension Status: Chronic Assessment and Plan: * BP 174/72 * Continue with Coreg and amlodipine * Trend BP * Adjust therapy as indicated (8) HLD (hyperlipidemia): Qualifiers: Hyperlipidemia type: unspecified Qualified Code(s): E78.5 - Hyperlipidemia, unspecified Code(s): E78.5 - Hyperlipidemia, unspecified Status: Chronic Assessment and Plan: * Continue with atorvastatin (9) Diabetes:
--- NOTE | 2021-03-01 10:00 | PM.IMPN ---
Progress Note: A&P Assessment and Plan (1) Head injury: Qualifiers: Encounter type: initial encounter Qualified Code(s): S09.90XA - Unspecified injury of head, initial encounter Code(s): S09.90XA - Unspecified injury of head, initial encounter Status: Acute Assessment and Plan: [facility] Hit his head On Eliquis at home Head ct showed normal aging brain The patient had 3 sutures placed to the forehead per ED Repeat head ct due to complaints of pressure and pain Brain MRI old stroke (2) Acute on chronic kidney failure: Qualifiers: Acute renal failure type: unspecified Chronic kidney disease stage: stage 4 (severe) Qualified Code(s): N17.9 - Acute kidney failure, unspecified; N18.4 - Chronic kidney disease, stage 4 (severe) Code(s): N17.9 - Acute kidney failure, unspecified; N18.9 - Chronic kidney disease, unspecified Status: Acute Assessment and Plan: Chronic kidney disease probably resolved as nephrology stated that the patient fluctuates at extreme levels. kidney transplant and has gradually been deteriorating. Nephrology has been consulted creatinine is anywhere from 2.5-3.5 Continue with home medications Anti rejection medication from home Hold any nephrotoxic medication Renal ultrasound showed minimal hydronephrosis in the left pelvic transplants kidney,Atrophy and markedly echogenic bilateral [place] kidneys consistent with chronic renal disease. Shadowing echogenic focus at the right kidney which could represent a nonobstructing stone or more likely atherosclerotic calcification of the renal vasculature. Chronic catheter Monitor labs (3) Depression: Qualifiers: Depression Type: unspecified Qualified Code(s): F32.9 - Major depressive disorder, single episode, unspecified Code(s): F32.9 - Major depressive disorder, single episode, unspecified Status: Chronic Assessment and Plan: Continue with home medications. (4) BPH (benign prostatic hyperplasia): Code(s): N40.0 - Benign prostatic hyperplasia without lower urinary tract symptoms Status: Chronic Assessment and Plan: Continue with tamsulosin Trend urine output (5) Glaucoma: Code(s): H40.9 - Unspecified glaucoma Status: Chronic Assessment and Plan: Continue with home eye drops (6) Gout: Qualifiers: Chronicity: acute Gout etiology: unspecified cause Gout site: unspecified site Qualified Code(s): M10.9 - Gout, unspecified Code(s): M10.9 - Gout, unspecified Status: Acute Assessment and Plan: Continue with home medication (7) HTN (hypertension): Qualifiers: Hypertension type: essential hypertension Qualified Code(s): I10 - Essential (primary) hypertension Code(s): I10 - Essential (primary) hypertension Status: Chronic Assessment and Plan: BP 174/72 Continue with Coreg and amlodipine Trend BP Adjust therapy as indicated (8) HLD (hyperlipidemia): Qualifiers: Hyperlipidemia type: unspecified Qualified Code(s): E78.5 - Hyperlipidemia, unspecified Code(s): E78.5 - Hyperlipidemia, unspecified Status: Chronic Assessment and Plan: Continue with atorvastatin (9) Diabetes: Qualifiers: Diabetes mellitus complication detail: with autonomic neuropathy Diabetes mellitus complication status: with neurologic complications Diabetes mellitus senior care insulin use: with senior care use Diabetes mellitus type: type 2 Qualified Code(s): E11.43 - Type 2 diabetes mellitus with diabetic autonomic (poly)neuropathy; Z79.4 - terminal makeup operator (current) use of insulin Code(s): E11.9 - Type 2 diabetes mellitus without complications Status: Chronic Assessment and Plan: Found to be hypoglycemic today on l
--- NOTE | 2021-03-01 10:33 | P.PNNP_ITS ---
Progress Note: A&P Assessment and Plan (1) SUDHIR (acute kidney injury): Code(s): N17.9 - Acute kidney failure, unspecified Status: Deleted Assessment and Plan: * due to UTI versus prerenal factors versus something else... * his renal function/creatinine is well known to fluctuate to extremes in general for the last year * transplant renal ultrasound noted * urine electrolytes non-prerenal * creatinine is higher at 4 * he is on Bumex because he is swollen. his chest x-ray was also wet on admission. * He is on amlodipine which could cause swelling. Will stop this. * Will repeat chest x-ray to see if we still need to Bumex. 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 Olivia) (4) Acute UTI: Code(s): N39.0 - Urinary tract infection, site not specified Status: Acute Assessment and Plan: * seems to be a recurrent issue (likely due to chronic cerna catheter?) * on last hospitalization, his urine culture grew ESBL Klebsiella * on antibiotics (5) Urinary retention: Code(s): R33.9 - Retention of urine, unspecified Status: Chronic Assessment and Plan: * long standing issue/problem * cerna catheter in place * consider replacing if not done recently (6) Acute encephalopathy: Code(s): G93.40 - Encephalopathy, unspecified Status: Acute Assessment and Plan: * resolved (7) Diabetes: Qualifiers: Diabetes mellitus type: type 2 Diabetes mellitus custodial insulin use: with custodial use Diabetes mellitus complication status: with neurologic complications Diabetes mellitus complication detail: with autonomic neuropathy Qualified Code(s): E11.43 - Type 2 diabetes mellitus with diabetic autonomic (poly)neuropathy; Z79.4 - government gauger (current) use of insulin Code(s): E11.9 - Type 2 diabetes mellitus without complications Status: Chronic Assessment and Plan: * follow accuchecks * Sugars were low yesterday. Insulin adjusted. * glycemic control Will continue to follow. (8) HTN (hypertension): Qualifiers: Hypertension type: essential hypertension Qualified Code(s): I10 - Essential (primary) hypertension Code(s): I10 - Essential (primary) hypertension Status: Chronic Assessment and Plan: blood pressure is is on amlodipine 2.5, hydralazine 100 3 times a day. Will stop amlodipine due to swelling and add terazosin. Stop Flomax Subjective Date/time seen: 03/01/21 10:33 Interval history: patient is feeling okay this morning. No shortness of breath. He has a little swelling He is alert and oriented and feels okay. He is eating well Exam Narrative: General: WD/WN male in NAD Heart: normal S1 and S2; no rub or gallop Lungs: clear Abdomen: soft, nontender, nondistended, positive bowel sounds Extremities: 1+ edema Skin: forehead laceration present. Otherwise no rash
--- NOTE | 2021-03-01 10:33 | PM.PNNEP ---
Progress Note: A&P Assessment and Plan (1) SUDHIR (acute kidney injury): Code(s): N17.9 - Acute kidney failure, unspecified Status: Deleted Assessment and Plan: due to UTI versus prerenal factors versus something else... his renal function/creatinine is well known to fluctuate to extremes in general for the last year transplant renal ultrasound noted urine electrolytes non-prerenal creatinine is higher at 4 he is on Bumex because he is swollen. his chest x-ray was also wet on admission. He is on amlodipine which could cause swelling. Will stop this. Will repeat chest x-ray to see if we still need to Bumex. 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 Olivia) (4) Acute UTI: Code(s): N39.0 - Urinary tract infection, site not specified Status: Acute Assessment and Plan: seems to be a recurrent issue (likely due to chronic cerna catheter?) on last hospitalization, his urine culture grew ESBL Klebsiella on antibiotics (5) Urinary retention: Code(s): R33.9 - Retention of urine, unspecified Status: Chronic Assessment and Plan: long standing issue/problem cerna catheter in place consider replacing if not done recently (6) Acute encephalopathy: Code(s): G93.40 - Encephalopathy, unspecified Status: Acute Assessment and Plan: resolved (7) Diabetes: Qualifiers: Diabetes mellitus type: type 2 Diabetes mellitus snf insulin use: with snf use Diabetes mellitus complication status: with neurologic complications Diabetes mellitus complication detail: with autonomic neuropathy Qualified Code(s): E11.43 - Type 2 diabetes mellitus with diabetic autonomic (poly)neuropathy; Z79.4 - alf (current) use of insulin Code(s): E11.9 - Type 2 diabetes mellitus without complications Status: Chronic Assessment and Plan: follow accuchecks Sugars were low yesterday. Insulin adjusted. glycemic control Will continue to follow. (8) HTN (hypertension): Qualifiers: Hypertension type: essential hypertension Qualified Code(s): I10 - Essential (primary) hypertension Code(s): I10 - Essential (primary) hypertension Status: Chronic Assessment and Plan: blood pressure is is on amlodipine 2.5, hydralazine 100 3 times a day. Will stop amlodipine due to swelling and add terazosin. Stop Flomax Subjective Date/time seen: 03/01/21 10:33 Interval history: patient is feeling okay this morning. No shortness of breath. He has a little swelling He is alert and oriented and feels okay. He is eating well Exam Narrative: General: WD/WN male in NAD Heart: normal S1 and S2; no rub or gallop Lungs: clear Abdomen: soft, nontender, nondistended, positive bowel sounds Extremities: 1+ edema Skin: forehead laceration present. Otherwise no rash Objective Data Vital Signs Vital Signs: Vital Signs - 24 hr 02/28/21 14:00 02/28/21 20:00 02/28/21 20:25 Temperature 36.2 C L Pulse Rate 76 94 70 Respiratory Rate 18 18 Blood Pressure 128/50 L Pulse Oximetry 97 96 02/28/21 22:00 03/01/21 06:00 03/01/21 08:39 Temperature 37.0 C 36.9 C Pulse Rate 94 91 91 Respiratory Rate 18 20 Blood Pressure 148/65 H 174/72 H Pulse Oximetry 96 98 Intake/Output Intake/Output: Intake & Outp
[2021-03-01] MEDS: CARBIDOPA/LEVODOPA 25/100 MG TABLET 2 TABLET PO ×2 (12:15→20:46)
[2021-03-01] MEDS: INSULIN ASPART (*BKC) 100 UNITS/ML SUB-Q ×2 (12:20→16:53)
[2021-03-01 12:28] LABS: Glucose Point of Care 212 mg/dl (65-105)
[2021-03-01 14:00] VITALS: BP 130/68; PULSE 73; RESP 18; TEMP 36.3; O2SAT 98
[2021-03-01 16:34] LABS: Glucose Point of Care 238 mg/dl (65-105)
[2021-03-01] MEDS: ERTAPENEM SODIUM 0.5 GM in SODIUM CHLORIDE 0.9% IV 50 ML IVPB (16:53)
[2021-03-01 20:00] VITALS: PULSE 87; RESP 16; O2SAT 99
[2021-03-01] MEDS: TERAZOSIN HCL 1 MG CAPSULE PO (20:47)
[2021-03-01] MEDS: VENLAFAXINE HCL XR 75 MG CAP.ER.24H PO (20:47)
[2021-03-01] MEDS: rOPINIRole HCL 0.125 MG TABLET PO (20:47)
[2021-03-01] MEDS: ATORVASTATIN 40 MG TABLET PO (20:47)
[2021-03-01] MEDS: LATANOPROST 0.005% OP SOLN 2.5 ML BTL 1 DROP EACH EYE (20:48)
[2021-03-01 20:52] VITALS: PULSE 73
[2021-03-01] MEDS: INSULIN GLARGINE (*BKC) 100 UNITS/ML 10 UNITS SUB-Q (20:59)
[2021-03-01 21:02] LABS: Glucose Point of Care 252 mg/dl (65-105)
[2021-03-01 21:44] VITALS: BP 158/71; PULSE 87; RESP 16; TEMP 36.6; O2SAT 99
[2021-03-02 04:19] VITALS: BP 152/72; PULSE 92; RESP 17; TEMP 36.6; O2SAT 98
[2021-03-02 06:53] LABS: Albumin Level 2.6 g/dL (3.5-5.1); Anion Gap 5 mmol/L (8-16); Blood Urea Nitrogen 49 mg/dL (9-20); Calcium 8.2 mg/dL (8.4-10.2); Carbon Dioxide 23 mmol/L (22-30); Chloride 102 mmol/L (98-107); Estimated CRCL calculation 19 ml/min; Estimated Glomerular Filt Rate 16; Glucose 196 mg/dL (65-110); Phosphorus 4.1 mg/dL (2.5-4.5); Potassium 4.6 mmol/L (3.4-5.0); Sodium 130 mmol/L (137-145)
--- NOTE | 2021-03-02 07:23 | P.PNNP_ITS ---
Progress Note: A&P Assessment and Plan (1) SUDHIR (acute kidney injury): Code(s): N17.9 - Acute kidney failure, unspecified Status: Deleted Assessment and Plan: * due to UTI versus prerenal factors versus something else... * his renal function/creatinine is well known to fluctuate to extremes in general for the last year * transplant renal ultrasound noted * urine electrolytes non-prerenal * he is on Bumex. Patient has bilateral pleural effusions. He also has swelling. Will continue this. * Creatinine is down to 3.7. 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 [place] not on formulary and I talked with the pharmacy about getting this. * follows with [facility] (Dr. Olivia) (4) Acute UTI: Code(s): N39.0 - Urinary tract infection, site not specified Status: Acute Assessment and Plan: * seems to be a recurrent issue (likely due to chronic cerna catheter?) * on last hospitalization, his urine culture grew ESBL Klebsiella * on antibiotics (5) Urinary retention: Code(s): R33.9 - Retention of urine, unspecified Status: Chronic Assessment and Plan: * long standing issue/problem * cerna catheter in place * consider replacing if not done recently (6) Acute encephalopathy: Code(s): G93.40 - Encephalopathy, unspecified Status: Acute Assessment and Plan: * resolved (7) Diabetes: Qualifiers: Diabetes mellitus type: type 2 Diabetes mellitus terminal manager insulin use: with skilled nursing use Diabetes mellitus complication status: with neurologic complications Diabetes mellitus complication detail: with autonomic neuropathy Qualified Code(s): E11.43 - Type 2 diabetes mellitus with diabetic autonomic (poly)neuropathy; Z79.4 - long term care social worker (current) use of insulin Code(s): E11.9 - Type 2 diabetes mellitus without complications Status: Chronic Assessment and Plan: * On Accu-Cheks and sliding-scale insulin. (8) HTN (hypertension): Qualifiers: Hypertension type: essential hypertension Qualified Code(s): I10 - Essential (primary) hypertension Code(s): I10 - Essential (primary) hypertension Status: Chronic Assessment and Plan: blood pressure is is on amlodipine 2.5, hydralazine 100 3 times a day. Will stop amlodipine due to swelling and add terazosin. Stop Flomax Subjective Date/time seen: 03/02/21 07:23 Interval history: patient is feeling okay this morning. Eager to get on with physical therapy Exam Narrative: General: WD/WN male in NAD Heart: normal S1 and S2; no rub or gallop Lungs: Rare crackles Abdomen: soft, nontender, nondistended, positive bowel sounds Extremities: 1+ edema Skin: forehead laceration present. Otherwise no rash Objective Data Vital Signs Vital Signs: Vital Signs - 24 hr 03/01/21 08:39 03/01/21 14:00 03/01/21 20:00
--- NOTE | 2021-03-02 07:23 | PM.PNNEP ---
Progress Note: A&P Assessment and Plan (1) SUDHIR (acute kidney injury): Code(s): N17.9 - Acute kidney failure, unspecified Status: Deleted Assessment and Plan: due to UTI versus prerenal factors versus something else... his renal function/creatinine is well known to fluctuate to extremes in general for the last year transplant renal ultrasound noted urine electrolytes non-prerenal he is on Bumex. Patient has bilateral pleural effusions. He also has swelling. Will continue this. Creatinine is down to 3.7. 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 Tac[place] not on formulary and I talked with the pharmacy about getting this. follows with [facility] Transplant (Dr. Olivia) (4) Acute UTI: Code(s): N39.0 - Urinary tract infection, site not specified Status: Acute Assessment and Plan: seems to be a recurrent issue (likely due to chronic cerna catheter?) on last hospitalization, his urine culture grew ESBL Klebsiella on antibiotics (5) Urinary retention: Code(s): R33.9 - Retention of urine, unspecified Status: Chronic Assessment and Plan: long standing issue/problem cerna catheter in place consider replacing if not done recently (6) Acute encephalopathy: Code(s): G93.40 - Encephalopathy, unspecified Status: Acute Assessment and Plan: resolved (7) Diabetes: Qualifiers: Diabetes mellitus type: type 2 Diabetes mellitus fci insulin use: with fci use Diabetes mellitus complication status: with neurologic complications Diabetes mellitus complication detail: with autonomic neuropathy Qualified Code(s): E11.43 - Type 2 diabetes mellitus with diabetic autonomic (poly)neuropathy; Z79.4 - group home (current) use of insulin Code(s): E11.9 - Type 2 diabetes mellitus without complications Status: Chronic Assessment and Plan: On Accu-Cheks and sliding-scale insulin. (8) HTN (hypertension): Qualifiers: Hypertension type: essential hypertension Qualified Code(s): I10 - Essential (primary) hypertension Code(s): I10 - Essential (primary) hypertension Status: Chronic Assessment and Plan: blood pressure is is on amlodipine 2.5, hydralazine 100 3 times a day. Will stop amlodipine due to swelling and add terazosin. Stop Flomax Subjective Date/time seen: 03/02/21 07:23 Interval history: patient is feeling okay this morning. Eager to get on with physical therapy Exam Narrative: General: WD/WN male in NAD Heart: normal S1 and S2; no rub or gallop Lungs: Rare crackles Abdomen: soft, nontender, nondistended, positive bowel sounds Extremities: 1+ edema Skin: forehead laceration present. Otherwise no rash Objective Data Vital Signs Vital Signs: Vital Signs - 24 hr 03/01/21 08:39 03/01/21 14:00 03/01/21 20:00 Temperature 36.3 C L Pulse Rate 91 73 87 Respiratory Rate 18 16 Blood Pressure 130/68 Pulse Oximetry 98 99 03/01/21 20:52 03/01/21 21:44 03/02/21 04:19 Temperature 36.6 C 36.6 C Pulse Rate 73 87 92 Respiratory Rate 16 17 Blood Pressure 158/71 H 152/72 H Pulse Oximetry 99 98 Intake/Output Intake/Output: Intake & Output 02/27/21 02/28/21 03/01/21 03/02/21 23:59 23:59 23:59 23:59 Intake Total 1260 1960 1685 300 Output Total 1350 800 825 700 Balance -90 1160 860 -400 M
[2021-03-02 07:41] LABS: Basophils Absolute Auto 0.1 K/mm3 (0.0-0.1); Basophils Percent Auto 0.8 % (0.2-1.2); Eosinophils Absolute Auto 0.1 K/mm3 (0-0.3); Eosinophils Percent Auto 1.4 % (0-4.4); Hematocrit 27.4 % (42.0-52.0); Hemoglobin 8.8 g/dL (14.0-18.0); Immature Granulocyte Percent A 1.3 % (0-0.5); Lymphocytes Absolute Auto 3.23 K/mm3 (0.9-3.2); Lymphocytes Percent Auto 41.1 % (18.3-44.2); Mean Corpuscular HGB Conc 32.1 g/dl (32-36); Mean Corpuscular Hemoglobin 30.2 pg (26-34); Mean Corpuscular Volume 94.2 fl (80-100); Mean Platelet Volume 10.8 fl (7.4-10.4); Monocytes Absolute Auto 0.5 K/mm3 (0.1-0.6); Monocytes Percent Auto 6.5 % (2.6-8.5); Neutrophils Absolute Auto 3.8 K/mm3 (1.3-6.7); Neutrophils Percent Auto 48.9 % (45.5-73.1); Platelet Count Result 194 k/mm3 (150-375); Red Blood Count 2.91 M/mm3 (4.6-6.20); Red Cell Distribution Width 19.8 % (11.5-14.5); White Blood Count 7.9 K/mm3 (4.5-10.0)
[2021-03-02 07:41] LABS: Glucose Point of Care 178 mg/dl (65-105)
[2021-03-02] MEDS: APIXABAN 2.5 MG TABLET PO ×2 (08:11→17:21)
[2021-03-02] MEDS: ASPIRIN 81 MG CHEWABLE TABLET PO (08:11)
[2021-03-02] MEDS: allopurinoL 300 MG TABLET PO (08:11)
[2021-03-02] MEDS: BRIMONIDINE TARTRATE 0.2% OP SOLN 5 ML BTL 1 DROP EACH EYE ×2 (08:11→15:00)
[2021-03-02 08:12] VITALS: PULSE 80
[2021-03-02] MEDS: CARBIDOPA/LEVODOPA 25/250 MG TABLET 1 TABLET PO ×2 (08:12→11:42)
[2021-03-02] MEDS: BUMETANIDE 1 MG TABLET PO (08:12)
[2021-03-02] MEDS: carvediloL 12.5 MG TABLET PO (08:12)
[2021-03-02] MEDS: hydrALAZINE HCL 50 MG TABLET 100 MG PO ×3 (08:13→17:21)
[2021-03-02] MEDS: GABAPENTIN 100 MG CAPSULE PO (08:13)
[2021-03-02] MEDS: FERROUS SULFATE 324 MG TABLET PO (08:13)
[2021-03-02] MEDS: PYRIDOXINE HCL 50 MG TABLET 100 MG PO (08:14)
[2021-03-02] MEDS: predniSONE 5 MG TABLET PO (08:14)
[2021-03-02] MEDS: ISOSORBIDE DINITRATE 20 MG TABLET PO ×3 (08:14→17:22)
[2021-03-02] MEDS: SACCHAROMYCES BOULARDII 250 MG CAPSULE PO ×2 (08:15→17:21)
[2021-03-02] MEDS: VITAMIN B CMPLX/VIT C/FOLIC AC 1 CAPSULE 1 CAP PO (08:15)
[2021-03-02] MEDS: calcitrioL 0.25 MCG CAPSULE 0.5 MCG PO (08:17)
[2021-03-02] MEDS: PANTOPRAZOLE 40 MG TABLET PO (08:43)
[2021-03-02 09:51] LABS: Alanine Aminotransferase 7 U/L (4-50); Albumin Level 2.6 g/dL (3.5-5.1); Alkaline Phosphatase 63 U/L (38-126); Aspartate Amino Transferase 19 U/L (17-59); Bilirubin,Total 0.3 mg/dL (0.2-1.3)
[2021-03-02] MEDS: CARBIDOPA/LEVODOPA 25/100 MG TABLET 2 TABLET PO (11:43)
[2021-03-02 11:48] LABS: Glucose Point of Care 186 mg/dl (65-105)
[2021-03-02 14:00] VITALS: BP 108/69; PULSE 77; RESP 16; TEMP 36.2; O2SAT 98
--- NOTE | 2021-03-02 14:26 | P.DS_ITS ---
DS: Admitting Diagnosis Discharge Date Date of service: 03/02/21 0800 Admitting Diagnosis Fall with head injury DS: Discharge Diagnosis Discharge Diagnosis (1) Head injury: Qualifiers: Encounter type: initial encounter Qualified Code(s): S09.90XA - Unspecified injury of head, initial encounter Code(s): S09.90XA - Unspecified injury of head, initial encounter Status: Acute Assessment and Plan: * Fell [facility] the wheel chair at the halfway * Hit his head * On Eliquis at home * Head ct showed normal aging brain * The patient had 3 sutures placed to the forehead per ED * Repeat head ct due to complaints of pressure and pain * 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 * kidney transplant and has gradually been deteriorating. * Nephrology has been consulted * creatinine is anywhere from 2.5-3.5 * Continue with home medications * Anti rejection medication from home * Hold any nephrotoxic medication * Renal ultrasound showed minimal hydronephrosis in the left pelvic transplants kidney,Atrophy and markedly echogenic bilateral [place] kidneys consistent with chronic renal disease. Shadowing echogenic focus at the right kidney which could represent a nonobstructing stone or more likely atherosclerotic calcification of the renal vasculature. * Chronic catheter * Monitor labs (3) Depression: Qualifiers: Depression Type: unspecified Qualified Code(s): F32.9 - Major depressive disorder, single episode, unspecified Code(s): F32.9 - Major depressive disorder, single episode, unspecified Status: Chronic Assessment and Plan: * Continue with home medications. (4) BPH (benign prostatic hyperplasia): Code(s): N40.0 - Benign prostatic hyperplasia without lower urinary tract symptoms Status: Chronic Assessment and Plan: * Continue with tamsulosin * Trend urine output (5) Glaucoma: Code(s): H40.9 - Unspecified glaucoma Status: Chronic Assessment and Plan: * Continue with home eye drops (6) Gout: Qualifiers: Gout site: unspecified site Gout etiology: unspecified cause Chronicity: acute Qualified Code(s): M10.9 - Gout, unspecified Code(s): M10.9 - Gout, unspecified Status: Acute Assessment and Plan: * Continue with home medication (7) HTN (hypertension): Qualifiers: Hypertension type: essential hypertension Qualified Code(s): I10 - Essential (primary) hypertension Code(s): I10 - Essential (primary) hypertension Status: Chronic Assessment and Plan: * BP 152/72 * Continue with Coreg and amlodipine * Trend BP * Adjust therapy as indicated (8) HLD (hyperlipidemia): Qualifiers: Hyperlipidemia type: unspecified Qualified Code(s): E78.5 - Hyperlipidemia, unspecified Code(s): E78.5 - Hyperlipidemia, unspecified
--- NOTE | 2021-03-02 14:26 | PM.DS ---
DS: Admitting Diagnosis Discharge Date Date of service: 03/02/21 0800 Admitting Diagnosis Fall with head injury DS: Discharge Diagnosis Discharge Diagnosis (1) Head injury: Qualifiers: Encounter type: initial encounter Qualified Code(s): S09.90XA - Unspecified injury of head, initial encounter Code(s): S09.90XA - Unspecified injury of head, initial encounter Status: Acute Assessment and Plan: [facility] the jail Hit his head On Eliquis at home Head ct showed normal aging brain The patient had 3 sutures placed to the forehead per ED Repeat head ct due to complaints of pressure and pain Brain MRI old stroke (2) Acute on chronic kidney failure: Qualifiers: Acute renal failure type: unspecified Chronic kidney disease stage: stage 4 (severe) Qualified Code(s): N17.9 - Acute kidney failure, unspecified; N18.4 - Chronic kidney disease, stage 4 (severe) Code(s): N17.9 - Acute kidney failure, unspecified; N18.9 - Chronic kidney disease, unspecified Status: Acute Assessment and Plan: Chronic kidney disease probably resolved as nephrology stated that the patient fluctuates at extreme levels. kidney transplant and has gradually been deteriorating. Nephrology has been consulted creatinine is anywhere from 2.5-3.5 Continue with home medications Anti rejection medication from home Hold any nephrotoxic medication Renal ultrasound showed minimal hydronephrosis in the left pelvic transplants kidney,Atrophy and markedly echogenic bilateral [place] kidneys consistent with chronic renal disease. Shadowing echogenic focus at the right kidney which could represent a nonobstructing stone or more likely atherosclerotic calcification of the renal vasculature. Chronic catheter Monitor labs (3) Depression: Qualifiers: Depression Type: unspecified Qualified Code(s): F32.9 - Major depressive disorder, single episode, unspecified Code(s): F32.9 - Major depressive disorder, single episode, unspecified Status: Chronic Assessment and Plan: Continue with home medications. (4) BPH (benign prostatic hyperplasia): Code(s): N40.0 - Benign prostatic hyperplasia without lower urinary tract symptoms Status: Chronic Assessment and Plan: Continue with tamsulosin Trend urine output (5) Glaucoma: Code(s): H40.9 - Unspecified glaucoma Status: Chronic Assessment and Plan: Continue with home eye drops (6) Gout: Qualifiers: Gout site: unspecified site Gout etiology: unspecified cause Chronicity: acute Qualified Code(s): M10.9 - Gout, unspecified Code(s): M10.9 - Gout, unspecified Status: Acute Assessment and Plan: Continue with home medication (7) HTN (hypertension): Qualifiers: Hypertension type: essential hypertension Qualified Code(s): I10 - Essential (primary) hypertension Code(s): I10 - Essential (primary) hypertension Status: Chronic Assessment and Plan: BP 152/72 Continue with Coreg and amlodipine Trend BP Adjust therapy as indicated (8) HLD (hyperlipidemia): Qualifiers: Hyperlipidemia type: unspecified Qualified Code(s): E78.5 - Hyperlipidemia, unspecified Code(s): E78.5 - Hyperlipidemia, unspecified Status: Chronic Assessment and Plan: Continue with atorvastatin (9) Diabetes: Qualifiers: Diabetes mellitus type: type 2 Diabetes mellitus detention insulin use: with detention use Diabetes mellitus complication status: with neurologic complications Diabetes mellitus complication detail: with autonomic neuropathy Qualified Code(s): E11.43 - Type 2 diabetes mellitus with diabetic autonomic (poly)neuropathy; Z79.4 - penitentiary (current) use of insulin Code(s): E11.9 - Type 2 diabet
[2021-03-02] MEDS: LATANOPROST 0.005% OP SOLN 2.5 ML BTL 1 DROP EACH EYE (14:59)
[2021-03-02 16:22] LABS: Glucose Point of Care 218 mg/dl (65-105)
[2021-03-02 16:32] LABS: EDCOVIDSCREEN Negative (Negative)
[2021-03-02 17:02] LABS: Chloride Rand Ur 37 mmol/L (32-290); Chloride/Creatinine Rand Ur 41 (23-275); Creatinine Random Urine 91 mg/dL (20-320)
--- NOTE | 2021-03-02 17:31 | WPDREHABHP2 ---
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 Status post fall. l The etiologic diagnosis is acute head injury from fall and newly diagnosed subacute CVA I saw this patient [id number] on 03/03/2021 The patient is a 75-year-old male with past medical history of chronic kidney disease stage 4, depression, glaucoma, hypertension, hyperlipidemia, diabetes mellitus type 2, renal transplant recipient 13 years ago, Parkinson's disease, urinary retention with chronic Davidson catheter who presented to [facility] on 02/25/2021 after falling out of a wheelchair at a custodial facility patient was attempting to adjust tissues. Patient has had a complicated medical history since November of 2020 where he tested positive for COVID. Patient has been in and out of the hospital in custodial facilities. on 12/16/2020 the patient was admitted to [facility] for custodial facility needs. He made significant improvements however he had several falls and multiple urinary tract infections requiring IV antibiotics. Patient receive 3 sutures to forehead in the emergency department and had Angel complains of headaches and dizziness. Hip and pelvis x-ray showed moderate hip osteoarthritis. Chest x-ray showed mild perihilar opacities which could represent mild pulmonary edema or bronchitis and cardiomegaly. Cervical spine CT showed no acute fractures and cervical spondylosis. Head CT showed normal aging of the brain. MRI showed a small old infarct which was not diagnosed prior. The patient has a chronic Davidson catheter placed roughly 1 month ago. Nephrology was consulted and followed for recurrent UTIs and chronic kidney disease stage 4. Patient's baseline of creatinine is 2.5-3.5. He will continue on his Motrin get T, tactile we miss and prednisone for status post transplant. Upon admission patient was noted to have abnormal urinalysis however urine culture showed no growth. Patient experience hypoglycemia as low as 34 and was treated with IV D50. Insulin has been reduced. He has experienced lower extremity swelling. Venous Dopplers showed patent vessels. Medications have been adjusted and changed hospitalist and Nephrology has been following closely. Therapy was initiated at the acute care facility and the patient transferred to us from [facility] on 03/02/2021 PRIOR LEVEL OF FUNCTION: prior to November patient was independent CURRENT LEVEL OF FUNCTION: Min to mod assist GOALS: Our therapists will evaluate the patient and establish the goals. However, upon pre-admission screening, the expected goals were to be independent to Min assist for lower extremity with self-care, independent to contact with transfers, and independent with wheelchair mobility and contact guard to Min assist with gait so that the patient can return home. ESTIMATED LENGTH OF STAY: 14 days POTENTIAL BARRIERS TO DISCHARGE: [Family needs training.] [Severity of condition.] [ ACTIVE CO-MORBIDITIES PRESENT ON ADMISSION: Active co-morbidities include acute head injury, dizziness, acute on chronic kidney failure, stage 4 kidney disease, depression, glaucoma, gout, hypertension, hyperlipidemia, diabetes mellitus, renal transplant recipient and on immunosuppressive treatment, Parkinson's disease, recurrent UTIs, chronic urinary retention with Davidson, hyperglycemia, recent CVA November to December of 2020. . Shingles on buttocks. The above co-morbidities impact the patient's function and/or functional outcome by limiting ADLs transfers gait and safety Covid The patient had a negative COVID test on 03/02/2021. Review of Systems Review of Systems patient denies dizziness patient admits to decreased vision decreased hearing appetite is fair. Patient has a history of suicidal thoughts. Spoke with regarding this. Patient has no plans on suicidal ideations at this time. Liliane
[2021-03-02] MEDS: INSULIN ASPART (*BKC) 100 UNITS/ML SUB-Q (17:35)
[2021-03-02 17:40] VITALS: BP 174/74
== END 2021-03-02 20:05 | DRG 914 ==
LOC: ANHED 18:05 → ANHIMU 18:16 → ANH3MED 23:29
PROVIDERS: Internal Medicine Nephrology; Nurse Practitioner; Physician Assistant; Admitting Provider Internal Medicine; Emergency Provider Emergency Medicine; PCP Family Medicine; Visit Provider Nurse Practitioner
DX: S09.90XA Unspecified injury of head, initial encounter (principal); I13.0 Hypertensive heart and chronic kidney disease with heart failure and stage 1 through stage 4 chronic kidney disease, or unspecified chronic kidney disease; N17.9 Acute kidney failure, unspecified; Z94.0 Kidney transplant status; N18.4 Chronic kidney disease, stage 4 (severe); G93.40 Encephalopathy, unspecified; Z20.822 Contact with and (suspected) exposure to COVID-19; Z23 Encounter for immunization; S01.81XA Laceration without foreign body of other part of head, initial encounter; W05.0XXA Fall from non-moving wheelchair, initial encounter; E11.22 Type 2 diabetes mellitus with diabetic chronic kidney disease; I50.9 Heart failure, unspecified; G20 Parkinson's disease; E11.51 Type 2 diabetes mellitus with diabetic peripheral angiopathy without gangrene; E11.649 Type 2 diabetes mellitus with hypoglycemia without coma; E11.43 Type 2 diabetes mellitus with diabetic autonomic (poly)neuropathy; K31.84 Gastroparesis; R82.90 Unspecified abnormal findings in urine; E78.5 Hyperlipidemia, unspecified; M10.9 Gout, unspecified; H40.9 Unspecified glaucoma; F32.9 Major depressive disorder, single episode, unspecified; N40.1 Benign prostatic hyperplasia with lower urinary tract symptoms; R33.8 Other retention of urine; I48.91 Unspecified atrial fibrillation; I25.10 Atherosclerotic heart disease of native coronary artery without angina pectoris; I25.2 Old myocardial infarction; Z79.4 Long term (current) use of insulin; Z79.899 Other long term (current) drug therapy; Z97.8 Presence of other specified devices; Z86.16 Personal history of COVID-19
CPT/HCPCS: 12011; 36415; 70450; 70551; 71046; 72125; 73521; 76775; 80053; 80069; 80076; 81001; 82436; 82550; 82570; 82948; 83605; 83615; 83690; 83735; 83880; 84100; 84156; 84300; 84443; 84484; 85025; 85610; 85730; 86140; 87040; 87086; 87088; 87426; 90471; 90715; 93005; 93970; 96365; 97110; 97116; 97161; 97165; 97530; 97535; 99285; A9270; C9803; G0378; J1335; J1815; J7512; L0140

== ENCOUNTER 2021-03-30 17:46 | Outpatient (NON) | payer MEDICARE, BC, SELFPAY ==
[2021-03-30 18:30] LABS: Anion Gap 7 mmol/L (8-16); Blood Urea Nitrogen 51 mg/dL (9-20); Calcium 9.2 mg/dL (8.4-10.2); Carbon Dioxide 23 mmol/L (22-30); Chloride 109 mmol/L (98-107); Estimated Glomerular Filt Rate 20; Glucose 184 mg/dL (65-110); Potassium 4.5 mmol/L (3.4-5.0); Sodium 139 mmol/L (137-145)
== END 2021-03-30 17:47 | disposition home or self-care (01) ==
LOC: HOME HLTH 17:54
PROVIDERS: PCP Family Medicine
DX: I50.9 Heart failure, unspecified (principal)
CPT/HCPCS: 80048

== ENCOUNTER 2021-04-06 15:05 | Outpatient (NON) | payer MEDICARE, SELFPAY ==
[2021-04-06 15:36] LABS: Hemoglobin 11.2 g/dL (12.4-15.3); Mean Corpuscular HGB Conc 32.9 g/dL (32.0-36.0); Mean Corpuscular Hemoglobin 30.5 pg (27.0-31.0); Mean Corpuscular Volume 92.6 fL (78.0-102.0); Platelet Count Result 146 K/mm3 (150-420); Red Blood Count 3.67 M/mm3 (4.70-6.10); Red Cell Distribution Width 16.8 % (11.6-14.4); White Blood Count 7.2 K/mm3 (4.8-10.8)
[2021-04-06 15:38] LABS: Add Urine Microscopic? YES; Bilirubin Urine Negative (Negative); Blood Urine 3+ (Negative); Color Urine Red (Yellow); Glucose Urine UA 1+ (Negative); Ketones Urine Negative (Negative); Leukocyte Esterase Ur Trace (Negative); Nitrate Urine Negative (Negative); Protein Urine 3+ (Negative); Urobilinogen Urine 0.2 mg/dL (0.2-1.0)
[2021-04-06 15:48] LABS: Appearance Urine Cloudy (Clear); RBC Urine >75 /hpf (0-2)
[2021-04-06 15:50] LABS: Bacteria Urine 3+ /hpf; Squamous Epithelial Cell Urine Rare /hpf (Few)
[2021-04-06 15:59] LABS: Alanine Aminotransferase 6 U/L (16-63); Albumin Level 2.9 g/dL (3.4-5.0); Alkaline Phosphatase 69 U/L (46-116); Anion Gap 15 mmol/L (8-16); Aspartate Amino Transferase 18 U/L (15-37); Bilirubin,Total 0.5 mg/dL (0.00-1.00); Blood Urea Nitrogen 51 mg/dL (7-18); Calcium 9.1 mg/dL (8.5-10.1); Carbon Dioxide 19 mmol/L (21-32); Chloride 105 mmol/L (98-108); Estimated Glomerular Filt Rate 19; Glucose 293 mg/dL (70-99); Osmolality Calculated 312 mOsm/kg (285-295); Sodium 139 mmol/L (136-145); Total Protein 6.8 g/dL (6.4-8.2)
== END 2021-04-06 15:06 | disposition home or self-care (01) ==
PROVIDERS: Physician Assistant; Visit Provider Family Medicine
DX: G20 Parkinson's disease (principal); R33.9 Retention of urine, unspecified; I13.0 Hypertensive heart and chronic kidney disease with heart failure and stage 1 through stage 4 chronic kidney disease, or unspecified chronic kidney disease; R35.0 Frequency of micturition
CPT/HCPCS: 36415; 80053; 81001; 85027; 87077; 87086; 87088; 87186

== ENCOUNTER 2021-04-11 17:16 | Inpatient (IN) | payer MEDICARE, BC, SELFPAY ==
--- NOTE | ~2021-04-11 | CT_ITS ---
EXAMINATION: CT brain wo con DATE: 04/15/2021 11:19 INDICATION: Right facial numbness, right sided paresis. TECHNIQUE: Computed tomography (CT) of the head was performed without intravenous contrast. The mA wa s adjusted according to patient size. Iterative reconstruction technique was employed. Exam dose: 60 5.33 mGy-cm total exam DLP. COMPARISON: 04/13/2021 CT brain 02/27/2021 MR brain FINDINGS: Prominent bilateral vertebral artery calcification and carotid siphon internal carotid wilman ry calcifications. There is nonspecific diminished attenuation of the cerebral white matter, likely d ue to chronic small vessel ischemic changes. No intracranial mass lesion or hemorrhage or cerebrovascular accident is evident. No midline shift or mass effect. No subdural or epidural hematoma is detected. The orbital contents are unremarkable. There is minimal soft tissue thickening of the maxillary sinuses, ethmoid air cells, right sphenoid s inus. Extensive left mastoid effusions. The paranasal sinuses and mastoid air cells are otherwise unr emarkable. No fracture or bone destruction of the cranial vault. IMPRESSION: No acute intracranial finding is noted; CT is not sensitive for detection of hyperacute non-hemorrhagic infarct. Cerebral atherosclerosis and chronic small vessel ischemic changes of the cerebral white matter Reviewed, dictated and finalized at [facility]. Reviewed, dictated and finalized at location A. METAL CAR OPERATOR IMPRESSION: No acute intracranial finding is noted; CT is not sensitive for de tection of hyperacute non-hemorrhagic infarct. Cerebral atherosclerosis and chronic small vessel ischemic changes of the cereb ral white matter
--- NOTE | ~2021-04-11 | XR_ITS ---
EXAMINATION: XR chest 1V portable DATE: 04/21/2021 13:22 INDICATION: Leukocytosis. TECHNIQUE: A single frontal view of the chest was obtained. COMPARISON: Chest single view 04/13/2021, CT abdomen and pelvis 11/28/2020 FINDINGS: There is no pneumonia, pleural effusion, or pneumothorax. Cardiomegaly is noted. There are changes of heart valve replacement. Median sternotomy wires and mediastinal surgical clips are seen, likely from prior coronary artery bypass grafting. There is a prominent left paracardial fat pad. IMPRESSION: 1. Cardiomegaly. Reviewed, dictated and finalized at location A. IMPRESSION: 1. Cardiomegaly.
--- NOTE | ~2021-04-11 | MR_ITS ---
EXAMINATION: MR brain/brain stem wo con EXAM DATE: 04/15/2021 16:40 INDICATION: Reported R weakness > L, slowed mentation . Right facial paresthesia. TECHNIQUE: Magnetic resonance imaging (MRI) of the brain/brain stem obtained without contrast. Hermilo al T1, axial diffusion, gradient echo (T2*), T1, T2, FLAIR sequences obtained. Comparison is made to prior examination from 02/27/2021. FINDINGS: There are no areas of restricted diffusion to suggest acute infarction. There is no acute hemorrhage seen on the T2*, a hemosiderin sensitive sequence. No intraparenchymal brain mass lesion. There is mild periventricular and subcortical T2/FLAIR signal hyperintensity, nonspecific but probab ly related to small vessel ischemic disease (microangiopathy). Punctate old right cerebellar infarct ion. There is moderate prominence of the sulci and ventricles related to cerebral atrophy. There ar e no extra-axial collections. Flow voids are seen in the cerebral arteries on the T2-weighted sequen w[place] consistent with their expected patency. Patient has had bilateral ocular lens surgery. Soft tis [place] is unremarkable. Left mastoid effusion. IMPRESSION: 1. No acute intracranial findings. 2. Chronic age related findings. 3. 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 4. Left mastoid effusion. Reviewed, dictated and finalized at location B. ATING SYSTEMS PROGRAMMER
--- NOTE | ~2021-04-11 | CT_ITS ---
EXAMINATION: CT chest abdomen pelvis wo con DATE: 04/22/2021 13:28 INDICATION: Sepsis. Hematuria. TECHNIQUE: Computed tomography (CT) of the chest, abdomen, and pelvis was performed without intraveno us contrast. Automated exposure control and iterative reconstruction technique were employed. The dos e-length product was 1208.39 mGy-cm. COMPARISON: CT abdomen and pelvis 11/28/2020 FINDINGS: CHEST CT: The lungs demonstrate mild atelectasis. There is septal thickening in the lungs with mild groundglass opacities with a dependent predominance, consistent with mild pulmonary edema. There is a calcified pleural plaque on the left. No pleural effusion. Cardiomegaly is noted. There are coronary artery azam cifications. No pericardial effusion. There are changes of aortic valve replacement. ABDOMEN/PELVIS CT: The liver is normal. Calcifications in the spleen are consistent with old granulomatous disease. The gallbladder, pancreas, and adrenal glands are normal. There is severe atrophy of the kidneys. There a re widespread arterial calcifications. There is a transplant kidney in left iliac fossa. The prostate is mildly enlarged. There is wall thickening of the rectosigmoid with surrounding fat stranding, con sistent with colitis. The appendix is normal. There are no dilated loops of bowel. Body wall edema is noted. There is edema of the intra-abdominal fat. There are no pathologically enlarged lymph nodes. There is mild lumbar spondylosis. IMPRESSION: 1. Mild pulmonary edema. 2. Colitis involving the rectosigmoid. Reviewed, dictated and finalized at location A. OLL AND BENEFITS ANALYST
--- NOTE | ~2021-04-11 | XR_ITS ---
EXAMINATION: XR chest 1V portable DATE: 04/13/2021 08:58 INDICATION: Shortness of breath. Chest abnormality. TECHNIQUE: frontal view of the chest was obtained. COMPARISON: Chest radiograph dated 03/01/2021 and 02/25/2021 FINDINGS: Persistent opacities in the left mid and lower lung zone which corresponds to an oblique bandlike opa city on prior lateral radiographs consistent with either small pleural effusion or atelectasis/scarri ng which tracking along the major fissure. No new airspace opacities, pulmonary edema, pneumothorax o r right-sided pleural effusion. Heart size is normal. Postoperative change of prior median sternotomy and aortic valve repair. IMPRESSION: 1. Stable appearance of opacities in the left mid to lower lung zone most likely either small pleural effusion or atelectasis/scarring tracking along the major fissure. Reviewed, dictated and finalized at location A. OR SOFTWARE ARCHITECT IMPRESSION: 1. Stable appearance of opacities in the left mid to lower lung zone most likel y either small pleural effusion or atelectasis/scarring tracking along the puja r fissure.
--- NOTE | ~2021-04-11 | CT_ITS ---
EXAMINATION: CT brain wo con EXAM DATE: 04/13/2021 13:54 INDICATION: Post Fall , head injury. TECHNIQUE: Spiral CT of the head was performed without contrast. Axial, coronal and sagittal images were reviewed. The dose-length product (DLP) for this examination was 605.33 mGy-cm. The exposure w as tailored according to patient size, and iterative reconstruction (ASIR) was used as additional dos e reduction technique. Comparison is made to prior examination from 02/27/2021. FINDINGS: There is no acute intraparenchymal hemorrhage. No evidence of intraparenchymal brain mass lesion. No evidence of acute infarction. Please note that initial head CT has limited sensitivity f or small or acute infarctions. There is mild periventricular and subcortical hypodensity, nonspecific but probably related to small vessel ischemic disease. There is mild prominence of the sulci and v entricles related to cerebral atrophy. There is intracranial carotid arteriosclerosis. There are n o extra-axial collections. There is no mass effect or midline shift. Patient has had bilateral ocul ar lens surgery. Soft tissue is unremarkable. The visualized sinuses and mastoid air cells are well aerated. IMPRESSION: 1. No acute intracranial findings. 2. Chronic age related findings. Reviewed, dictated and finalized at location G.
[2021-04-11 17:23] VITALS: BP 128/68; PULSE 64; RESP 18; TEMP 36.3; O2SAT 97
[2021-04-11 18:14] LABS: Basophils Percent Auto 0.3 % (0.2-1.2); Eosinophils Percent Auto 0.4 % (0-4.4); Hemoglobin 10.8 g/dL (14.0-18.0); Immature Granulocyte Absolute 0.02 K/mm3 (0.00-0.031); Immature Granulocyte Percent A 0.3 % (0-0.5); Lymphocytes Percent Auto 23.5 % (18.3-44.2); Mean Corpuscular HGB Conc 32.7 g/dl (32-36); Mean Corpuscular Hemoglobin 30.4 pg (26-34); Mean Platelet Volume 10.7 fl (7.4-10.4); Monocytes Absolute Auto 0.5 K/mm3 (0.1-0.6); Monocytes Percent Auto 7.9 % (2.6-8.5); Neutrophils Absolute Auto 4.6 K/mm3 (1.3-6.7); Neutrophils Percent Auto 67.6 % (45.5-73.1); Platelet Count Result 150 k/mm3 (150-375); Red Blood Count 3.55 M/mm3 (4.6-6.20); Red Cell Distribution Width 16.7 % (11.5-14.5); White Blood Count 6.8 K/mm3 (4.5-10.0)
[2021-04-11 18:24] LABS: Alanine Aminotransferase 8 U/L (4-50); Albumin Level 3.2 g/dL (3.5-5.1); Alkaline Phosphatase 72 U/L (38-126); Anion Gap 9 mmol/L (8-16); Aspartate Amino Transferase 22 U/L (17-59); Bilirubin,Total 0.7 mg/dL (0.2-1.3); Blood Urea Nitrogen 52 mg/dL (9-20); Calcium 9.3 mg/dL (8.4-10.2); Carbon Dioxide 22 mmol/L (22-30); Chloride 106 mmol/L (98-107); Estimated CRCL calculation 20 ml/min; Estimated Glomerular Filt Rate 21; Glucose 299 mg/dL (65-110); Sodium 137 mmol/L (137-145)
--- NOTE | 2021-04-11 18:25 | ED.GENADULT ---
HPI - General Adult General Chief complaint: Urogenital-Male Stated complaint: AMS Time Seen by Provider: 04/11/21 17:25 Source: patient History of Present Illness HPI narrative: Patient is a 75 y/o male complaining moderate to severe generalized weakness, malaise for a while. He has history of kidney transplant. He was recently treated for UTI. He had urine culture done a few days ago, which grew Klebsiella resistant to most oral medications. contact Dr. Olivia (nephrology) at [facility] and was instructed to bring him here for IV antibiotics. Patient is poor historian and unable to provide additional history. Related Data Home Medications Medication Instructions Recorded Confirmed atorvastatin 40 mg PO HS 02/10/19 03/02/21 calcitriol 0.5 mcg PO MOWEFR 02/10/19 03/02/21 fluticasone propionate 2 spray INTRANASAL DAILY PRN 02/10/19 03/02/21 melatonin 5 mg PO HS PRN 02/10/19 03/02/21 ropinirole 0.25 mg tablet 0.125 mg PO HS tablet 08/19/19 03/02/21 apixaban 2.5 mg tablet 2.5 mg PO BID 10/01/19 03/02/21 tacrolimus 1 mg capsule, 1 mg PO Q12H cap 12/17/19 03/02/21 immediate-release venlafaxine 75 mg PO HS 05/17/20 03/02/21 brimonidine 1 drp EACH EYE TID 06/24/20 03/02/21 isosorbide dinitrate 20 mg PO TID 06/24/20 03/02/21 prednisone 5 mg PO DAILY 06/24/20 03/02/21 ferrous sulfate 325 mg (65 mg 325 mg PO DAILY 07/05/20 03/02/21 iron) tablet omeprazole 40 mg capsule,delayed 40 mg PO DAILY cap 07/05/20 03/02/21 release carvedilol 12.5 mg tablet 12.5 mg PO BIDWM 11/05/20 03/14/21 Triphrocaps 1 cap PO DAILY 11/24/20 03/02/21 pyridoxine (vitamin B6) 100 mg PO DAILY 11/24/20 03/02/21 aspirin 81 mg PO DAILY 11/28/20 03/02/21 latanoprost 1 drp HS 11/28/20 03/02/21 docusate sodium [Colace] 100 mg PO BID 03/14/21 03/14/21 polyethylene glycol 3350 [Miralax] 17 g PO BID PRN 03/14/21 03/14/21 tamsulosin 0.4 mg capsule 0.8 mg PO HS cap 03/28/21 insulin regular human 100 unit/mL 1 sliding scale dose SUBCUT 04/05/21 (3 mL) subcutaneous pen USEASDIRECTD oxybutynin chloride 5 mg tablet 5 mg PO DAILY 04/05/21 Allergies Allergy/AdvReac Type Severity Reaction Status Date / Time trimethobenzamide Allergy Severe Loss of Verified 04/05/21 10:34 Consciousness fish oil Allergy Mild Rash Verified 04/05/21 10:34 levofloxacin Allergy Unknown Hives Verified 04/05/21 10:34 metoclopramide AdvReac Severe Other Verified 04/05/21 10:34 ondansetron AdvReac Severe Other Verified 04/05/21 10:34 diphenhydramine AdvReac Unknown aggi Verified 04/11/21 17:29 NSAIDS (Non-Steroidal AdvReac Unknown renal Verified 04/11/21 17:29 Anti-Inflamma insuff Review of Systems Review of Systems: ROS unobtainable: Yes unobtainable due to mental status PMFSH Past Medical History Medical History Acute kidney failure Afib Anemia BPH (benign prostatic hyperplasia) CHF (congestive heart failure), NYHA class I Echo from 12/02/2020 read as the following 1. Complete two-dimensional, color flow and Doppler transthoracic echocardiogram is performed. 2. Left ventricular chamber dimension is normal. 3. Left ventricular systolic function is normal, estimated at 55-60%. 4. There is mildly increased left ventricular wall thickness. 5. The left ventricular diastolic function is grade II diastolic dysfunction. 6. E/e' 16 is elevated. 7. Right ventricular systolic function is reduced based on abnormal TAPSE 1.1 cm. 8. Left atrial chamber dimension is mildly enlarged. 9. The bioprosthetic aortic valve is not well visualized. 10. The mitral valve has mildly calcified leaflets and mildly calcified annulus. 11. No pulmonary hypertension, estimated pulmonary arterial systolic pressure is 13 mmHg. Chronic kidney disease, stage 4 (severe) Chronic renal failure, stage 3 (moderate) Coronary artery disease Depression Diabetes Dry mouth Gastroparesis Stage 4 Glaucoma Gout History of CVA (cerebrovascular accident)
[2021-04-11 18:41] VITALS: O2SAT 99
[2021-04-11 18:45] VITALS: BP 122/70; PULSE 73; RESP 18; O2SAT 99
[2021-04-11 19:04] LABS: Add Urine Microscopic? YES; Appearance Urine Cloudy (Clear); Bacteria Urine 4+ /hpf; Bilirubin Urine Negative (Negative); Blood Urine 1+ (Negative); Color Urine Amber (Yellow); Glucose Urine UA 1+ mg/dL (Negative); Ketones Urine Negative (Negative); Leukocyte Esterase Ur 3+ LEU/UL (Negative); Nitrate Urine Negative (Negative); Protein Urine 3+ mg/dL (Negative); RBC Urine >75 /hpf (0-2); Specific Grav Ur 1.012 (1.001-1.035); Squamous Epithelial Cell Urine Few /hpf (Few); Urobilinogen Urine Negative mg/dL (<2.0); WBC Clumps Urine Present /HPF; WBC Urine >75 /hpf
--- NOTE | 2021-04-11 20:34 | PM.IMHP ---
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 Patient had began having cloudy urine noted on straight cath on the on the . They called the patient's nephrology called out a script for Cipro. The patient began having dysuria in that X couple of days. Looking at the log of his vitals it seems the patient likely has some orthostatic hypotension that seemed to worsen over the course of the week. He also began having hallucinations of ?vibratory sounds?. He was having increased confusion. He does have history of gastroparesis and has some frequent nausea but it seems that his nausea has been increasing over the last week. He denies any sensation of incomplete bladder emptying but he is mildly confused. He he is oriented to person place and year but was confused as to the month. He reports having normal bowel movements. He has not been having chest pain or shortness of breath. His urine culture returned on the positive for Klebsiella Oxytoco (ESBL) UTI sensitive to cefepime imipenem ertapenem and Zosyn. The patient was a poor historian and most of information was obtained from ER records and past medical records. There was also a record of the patient's medication administrations, vitals and at home nurse's notes on the chart. Review of Systems Review of Systems: 12 systems were reviewed with pertinent positives and negatives per HPI. Except as documented in the HPI, all other systems were reviewed and are negative. However, patient is a poor historian. [facility] Past Medical History Medical History (Updated 04/12/21 @ 10:36 by Netta Walker DO) Afib Anemia BPH (benign prostatic hyperplasia) CHF (congestive heart failure), NYHA class I Echo from 12/02/2020 read as the following 1. Complete two-dimensional, color flow and Doppler transthoracic echocardiogram is performed. 2. Left ventricular chamber dimension is normal. 3. Left ventricular systolic function is normal, estimated at 55-60%. 4. There is mildly increased left ventricular wall thickness. 5. The left ventricular diastolic function is grade II diastolic dysfunction. 6. E/e' 16 is elevated. 7. Right ventricular systolic function is reduced based on abnormal TAPSE 1.1 cm. 8. Left atrial chamber dimension is mildly enlarged. 9. The bioprosthetic aortic valve is not well visualized. 10. The mitral valve has mildly calcified leaflets and mildly calcified annulus. 11. No pulmonary hypertension, estimated pulmonary arterial systolic pressure is 13 mmHg. 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/01/2020 HLD (hyperlipidemia) HTN (hypertension) Parkinson's disease Peripheral vascular disease Seizures Trauma induced following fall Subdural hematoma From fall on 24 December 2018 Surgical History Surgical History History of biopsy rt shoulder and lt palm History of kidney transplant 2007 History of thoracentesis Hx of CABG 2007, followed by lengthy hospital stay and a second surgery x4 Renal transplant recipient 2007 Family History Family History Father Family history of malignant neoplasm of stomach Mother Diabetes mellitus Grandparent Family history of cardiovascular disease Diabetes mellitu
[2021-04-11 20:49] VITALS: BP 134/74; PULSE 88; RESP 18; O2SAT 100
[2021-04-11 22:13] VITALS: BMI 23.9
[2021-04-11 22:14] VITALS: BP 179/89; PULSE 83; RESP 20; TEMP 36.4; O2SAT 100
--- NOTE | 2021-04-11 23:51 | ADMGEN ---
This patient, Maris Jackman, was admitted to Medical Room 255-. Patient/family oriented to hospital policies and general routines including ID bracelet, bed and alarms, visiting hours, pain management, procedures, bathroom and other care routines, personal items, smoking policy, room service/diet, and visiting hours. Information on how to activate the Rapid Response Team has been discussed. Patient/Family are encouraged to report perceived risks to care and to ask questions if they do not understand what they are told or what they should do.
[2021-04-11 23:54] VITALS: BP 187/86; PULSE 90; RESP 18; TEMP 36.4; O2SAT 100
[2021-04-12] VITALS (7 sets, daily range): BP systolic 133–172; BP diastolic 64–89; PULSE 79–87; RESP 18–20; TEMP 36.2–36.7; O2SAT 98–100
--- NOTE | 2021-04-12 06:31 | PHAR ---
PHARMACY VERIFIED HOME MEDICATIONS: MOTEGRITY 2 MG TABLET - TAKE 1 TABLET BY MOUTH ONCE DAILY TACROLIMUS 1 MG CAPSULE - TAKE 1 CAPSULE BY MOUTH ONCE DAILY
[2021-04-12] MEDS: PYRIDOXINE HCL 50 MG TABLET 100 MG PO (08:54)
[2021-04-12] MEDS: ASPIRIN 81 MG CHEWABLE TABLET PO (08:54)
[2021-04-12] MEDS: allopurinoL 150 MG TABLET PO (08:54)
[2021-04-12] MEDS: predniSONE 5 MG TABLET PO (08:55)
[2021-04-12] MEDS: PANTOPRAZOLE 40 MG TABLET PO ×2 (08:55→20:55)
[2021-04-12] MEDS: VITAMIN B CMPLX/VIT C/FOLIC AC 1 CAPSULE 1 CAP PO (08:55)
[2021-04-12] MEDS: carvediloL 12.5 MG TABLET PO ×2 (08:55→16:43)
[2021-04-12] MEDS: hydrALAZINE HCL 50 MG TABLET PO ×3 (08:55→16:43)
[2021-04-12] MEDS: OXYBUTYNIN CHLORIDE 5 MG TABLET PO (08:55)
[2021-04-12] MEDS: CARBIDOPA/LEVODOPA 25/250 MG TABLET 1 TABLET PO ×2 (08:55→16:42)
[2021-04-12] MEDS: APIXABAN 2.5 MG TABLET PO ×2 (08:55→16:43)
[2021-04-12] MEDS: FERROUS SULFATE 324 MG TABLET PO (08:55)
[2021-04-12] MEDS: DOCUSATE SODIUM 100 MG CAPSULE PO ×2 (08:55→16:43)
[2021-04-12] MEDS: BUMETANIDE 1 MG TABLET PO (08:56)
[2021-04-12] MEDS: BRIMONIDINE TARTRATE 0.2% OP SOLN 5 ML BTL 1 DROP EACH EYE ×3 (08:56→16:42)
[2021-04-12] MEDS: ISOSORBIDE DINITRATE 20 MG TABLET PO ×3 (08:56→16:43)
[2021-04-12 09:20] LABS: Hematocrit 38.1 % (42.0-52.0); Hemoglobin 12.6 g/dL (14.0-18.0); Mean Corpuscular HGB Conc 33.1 g/dl (32-36); Mean Corpuscular Volume 93.6 fl (80-100); Mean Platelet Volume 10.6 fl (7.4-10.4); Platelet Count Result 145 k/mm3 (150-375); Red Blood Count 4.07 M/mm3 (4.6-6.20); Red Cell Distribution Width 16.8 % (11.5-14.5)
--- NOTE | 2021-04-12 09:28 | PHAR ---
THE FOLLOWING PT HOME MEDS HAVE BEEN VERIFIED BY PHARMACY: MOTEGRITY 2 MG TABS AND TACROMILUS 1 MG CAPSULES
[2021-04-12 09:31] LABS: Anion Gap 10 mmol/L (8-16); Blood Urea Nitrogen 50 mg/dL (9-20); Calcium 9.3 mg/dL (8.4-10.2); Carbon Dioxide 22 mmol/L (22-30); Chloride 106 mmol/L (98-107); Estimated CRCL calculation 20 ml/min; Estimated Glomerular Filt Rate 21; Glucose 273 mg/dL (65-110); Sodium 138 mmol/L (137-145)
[2021-04-12 11:27] LABS: Glucose Point of Care 308 mg/dl (65-105)
[2021-04-12] MEDS: CARBIDOPA/LEVODOPA 25/100 MG TABLET 2 TABLET PO ×2 (11:45→20:55)
[2021-04-12] MEDS: INSULIN ASPART (*BKC) 100 UNITS/ML SUB-Q ×2 (11:46→16:45)
--- NOTE | 2021-04-12 13:14 | PM.IMPN ---
Progress Note: A&P Assessment and Plan (1) Urinary tract infection: Qualifiers: Hematuria presence: with hematuria Urinary tract infection type: site unspecified Qualified Code(s): N39.0 - Urinary tract infection, site not specified; R31.9 - Hematuria, unspecified Code(s): N39.0 - Urinary tract infection, site not specified Status: Acute Assessment and Plan: The patient has Klebsiella ease bill UTI resistant to oral antibiotics. Patient has been admitted for IV antibiotic therapy. If patient's blood cultures are negative will request PICC line placement for outpatient antibiotic therapy with cefepime. Repeat urine cultures pending. Although patient is at increased risk for infections due to his history of prior renal transplant and chronic immunosuppressive therapy. Chronic immunosuppressive therapy has been ordered. Bladder scan was completed due to suprapubic tenderness which showed he was retaining 480 cc. He still having tenderness and is unable to urinate at this time. Will order a Davidson catheter and see how he does. Continue IV cefepime #2 Blood culture urine culture still pending. Continue monitoring. (2) Renal transplant, status post: Code(s): Z94.0 - Kidney transplant status Status: Acute Assessment and Plan: The patient has chronic kidney disease but his creatinine is stable. Will monitor urine output closely. (3) Acute encephalopathy: Code(s): G93.40 - Encephalopathy, unspecified Status: Acute Assessment and Plan: Patient has acute metabolic encephalopathy due to acute UTI. Will continue to monitor. The patient is back to baseline at this time. Time Spent With Patient Time with patient: 25 - 35 minutes Subjective Date/time seen: 04/12/21 13:14 Interval history: Date of Service 04/12/21: Patient reports feeling weak, fatigued not feeling well. He has a new. He does have some suprapubic discomfort and states he feels like as urinate but is having hard time urinating. He does report fevers and chills. Denies any chest pain, shortness of breath, cough, nausea, vomiting, leg swelling, calf pain, or any other symptoms at this time. Review of Systems Review of Systems: All systems reviewed & are unremarkable except as noted in HPI and below Exam Narrative: General: 75-year-old man laying flat in bed, resting. Easily arousable. Appears comfortable. In no acute distress. Skin: No jaundice or cyanosis. Good skin turgor. Neck: Full range of motion. Supple. Respiratory: Lungs are clear to auscultation bilaterally. No bony chest wall tenderness. Cardiovascular: The heart has a regular rate and rhythm without murmur. Lower extremities: No lower extremity edema. Distal pulses are easily palpated. No calf tenderness to palpation. Gastrointestinal: Tenderness to palpation of suprapubic area. Mildly distended bladder palpated. The abdomen is otherwise soft, with active bowel sounds. Psychiatric: Lucid and oriented. Memory intact. Neurologic: No focal deficits. Speech is clear. No facial drooping. Objective Data Vital Signs Vital Signs: Vital Signs - 24 hr 04/11/21 17:23 04/11/21 18:41 04/11/21 18:45 Temperature 97.4 F L Pulse Rate 64 73 Respiratory Rate 18 18 Blood Pressure 128/68 122/70 Pulse Oximetry 97 99 99 04/11/21 20:49 04/11/21 22:14 04/11/21 23:54 Temperature 97.6 F 97.5 F L Pulse Rate 88 83 90 Respiratory Rate 18 20 18 Blood Pressure 134/74 179/89 H 187/86 H Pulse Oximetry 100 100 100 04/12/21 02:51 04/12/21 08:48 04/12/21 08:55 Temperature 97.2 F L 97.2 F L Pulse Rate 86 79 79 Respiratory Rate 18 20 Blood Pressure 172/89 H 158/74 H Pulse Oximetry 100 99 04/12/21 12:43 Temperature 97.6 F Pulse Rate 83 Respiratory Rate 18 Blood Pressure 143/71 H
[2021-04-12 16:12] LABS: Glucose Point of Care 281 mg/dl (65-105)
[2021-04-12] MEDS: SACCHAROMYCES BOULARDII 250 MG CAPSULE PO (16:43)
[2021-04-12] MEDS: ATORVASTATIN 40 MG TABLET PO (20:55)
[2021-04-12] MEDS: rOPINIRole HCL 0.125 MG TABLET PO (20:55)
[2021-04-12] MEDS: TAMSULOSIN HCL 0.4 MG CAPSULE 0.8 MG PO (20:55)
[2021-04-12] MEDS: INSULIN GLARGINE (*BKC) 100 UNITS/ML 15 UNITS SUB-Q (20:56)
[2021-04-12] MEDS: VENLAFAXINE HCL XR 75 MG CAP.ER.24H PO (20:56)
[2021-04-12] MEDS: LATANOPROST 0.005% OP SOLN 2.5 ML BTL 1 DROP EACH EYE (20:57)
[2021-04-12 21:12] LABS: Glucose Point of Care 295 mg/dl (65-105)
[2021-04-13] VITALS (11 sets, daily range): BP systolic 70–189; BP diastolic 38–80; PULSE 78–91; RESP 20–21; TEMP 36.5–37.1; O2SAT 98–100
[2021-04-13 05:27] LABS: Hematocrit 35.1 % (42.0-52.0); Mean Corpuscular HGB Conc 34.2 g/dl (32-36); Mean Corpuscular Hemoglobin 31.1 pg (26-34); Mean Corpuscular Volume 90.9 fl (80-100); Mean Platelet Volume 10.4 fl (7.4-10.4); Platelet Count Result 148 k/mm3 (150-375); Red Blood Count 3.86 M/mm3 (4.6-6.20); Red Cell Distribution Width 16.8 % (11.5-14.5); White Blood Count 8.7 K/mm3 (4.5-10.0)
[2021-04-13 06:02] LABS: Anion Gap 13 mmol/L (8-16); Blood Urea Nitrogen 54 mg/dL (9-20); Calcium 9.3 mg/dL (8.4-10.2); Carbon Dioxide 18 mmol/L (22-30); Chloride 105 mmol/L (98-107); Estimated CRCL calculation 19 ml/min; Estimated Glomerular Filt Rate 20; Glucose 294 mg/dL (65-110); Potassium 3.8 mmol/L (3.4-5.0); Sodium 136 mmol/L (137-145)
[2021-04-13 08:09] LABS: Glucose Point of Care 284 mg/dl (65-105)
[2021-04-13] MEDS: BISACODYL 10 MG SUPPOSITORY RECTAL (09:01)
[2021-04-13] MEDS: PROMETHAZINE HCL 25 MG/ML AMPUL 12.5 MG IV PUSH (09:50)
[2021-04-13] MEDS: allopurinoL 150 MG TABLET PO (10:40)
[2021-04-13] MEDS: carvediloL 12.5 MG TABLET PO ×2 (10:40→16:28)
[2021-04-13] MEDS: hydrALAZINE HCL 50 MG TABLET PO ×2 (10:40→12:42)
[2021-04-13] MEDS: BUMETANIDE 1 MG TABLET PO (10:40)
[2021-04-13] MEDS: ASPIRIN 81 MG CHEWABLE TABLET PO (10:40)
[2021-04-13] MEDS: FERROUS SULFATE 324 MG TABLET PO (10:40)
[2021-04-13] MEDS: BRIMONIDINE TARTRATE 0.2% OP SOLN 5 ML BTL 1 DROP EACH EYE ×3 (10:40→16:36)
[2021-04-13] MEDS: SACCHAROMYCES BOULARDII 250 MG CAPSULE PO ×2 (10:41→16:28)
[2021-04-13] MEDS: ISOSORBIDE DINITRATE 20 MG TABLET PO ×3 (10:41→16:28)
[2021-04-13] MEDS: APIXABAN 2.5 MG TABLET PO ×2 (10:41→16:28)
[2021-04-13] MEDS: PANTOPRAZOLE 40 MG TABLET PO ×2 (10:41→22:09)
[2021-04-13] MEDS: OXYBUTYNIN CHLORIDE 5 MG TABLET PO (10:41)
[2021-04-13] MEDS: calcitrioL 0.25 MCG CAPSULE 0.5 MCG PO (10:41)
[2021-04-13] MEDS: DOCUSATE SODIUM 100 MG CAPSULE PO ×2 (10:41→16:28)
[2021-04-13] MEDS: VITAMIN B CMPLX/VIT C/FOLIC AC 1 CAPSULE 1 CAP PO (10:42)
[2021-04-13] MEDS: predniSONE 5 MG TABLET PO (10:42)
[2021-04-13] MEDS: polyethylene glycoL 3350 17 GM POWD.PACK PO ×2 (10:42→16:29)
[2021-04-13] MEDS: PYRIDOXINE HCL 50 MG TABLET 100 MG PO (10:42)
[2021-04-13] MEDS: CARBIDOPA/LEVODOPA 25/250 MG TABLET 1 TABLET PO ×2 (10:43→16:28)
[2021-04-13 11:33] LABS: Glucose Point of Care 253 mg/dl (65-105)
[2021-04-13] MEDS: INSULIN ASPART (*BKC) 100 UNITS/ML SUB-Q (11:40)
[2021-04-13] MEDS: INSULIN GLARGINE (*BKC) 100 UNITS/ML 25 UNITS SUB-Q (11:40)
[2021-04-13] MEDS: CARBIDOPA/LEVODOPA 25/100 MG TABLET 2 TABLET PO ×2 (12:42→22:07)
[2021-04-13 13:02] LABS: Glucose Point of Care 220 mg/dl (65-105)
[2021-04-13] MEDS: LACTATED RINGERS 1,000 ML 75 ML IV CONT (14:03)
--- NOTE | 2021-04-13 14:58 | PM.IMPN ---
Progress Note: A&P Assessment and Plan (1) Urinary tract infection: Qualifiers: Hematuria presence: with hematuria Urinary tract infection type: site unspecified Qualified Code(s): N39.0 - Urinary tract infection, site not specified; R31.9 - Hematuria, unspecified Code(s): N39.0 - Urinary tract infection, site not specified Status: Acute Assessment and Plan: The patient has Klebsiella ease bill UTI resistant to oral antibiotics. Patient has been admitted for IV antibiotic therapy. If patient's blood cultures are negative will request PICC line placement for outpatient antibiotic therapy with cefepime. Repeat urine cultures pending. Although patient is at increased risk for infections due to his history of prior renal transplant and chronic immunosuppressive therapy. Chronic immunosuppressive therapy has been ordered. Bladder scan was completed due to suprapubic tenderness which showed he was retaining 480 cc. He still having tenderness and is unable to urinate at this time. Will order a Davidson catheter and see how he does. Continue IV cefepime #3 Blood culture show no growth to date Urine culture growing >100K Gram negative bacilli Continue monitoring. (2) Renal transplant, status post: Code(s): Z94.0 - Kidney transplant status Status: Acute Assessment and Plan: The patient has chronic kidney disease but his creatinine is stable. Will monitor urine output closely. (3) Acute encephalopathy: Code(s): G93.40 - Encephalopathy, unspecified Status: Acute Assessment and Plan: Patient has acute metabolic encephalopathy due to acute UTI. Will continue to monitor. The patient is back to baseline at this time. (4) Fall: Code(s): W19.XXXA - Unspecified fall, initial encounter Status: Acute Assessment and Plan: 1/19/22: The patient had a fall today. He needed to go to the bathroom his walking with the aid. He then felt lightheaded, denies syncopal episode or loss of consciousness. He fell to the ground and hit his right knee and possibly hit the right side of his head on the way down. He currently denies any pain or injury. We did do a CT head stat which showed no acute intracranial findings, chronic age-related findings. He had full range of motion of all of his joints to his lower extremities including hip and knees without any pain or resistance. Did not do further imaging of his extremities. Will do fall precautions. PT and OT RT on board Continue monitoring. (5) Orthostatic hypotension: Code(s): I95.1 - Orthostatic hypotension Status: Acute Assessment and Plan: The patient had just had his blood pressure checked prior to getting up and it was stable at 120 over 60. Then when he had fallen they recheck his blood pressure in showed he was 70/38, orthostatics. Will start IV fluid hydration LR at 75 cc an hour. He has not been eating much today due to nausea this morning. Will put Cuauhtemoc hose on his lower extremities for orthostasis treatment Continue monitoring. (6) Nausea: Code(s): R11.0 - Nausea Status: Acute Assessment and Plan: The patient's states that he has frequent nausea episodes which is related to his gastroparesis. Usually his treatment is po vitamin as well as a benzodiazepine. Will continue monitoring and restart his medications he takes at home for gastroparesis. Additional Plan Time Spent With Patient Time with patient: 25 - 35 minutes Subjective Date/time seen: 04/13/21 14:58 Interval history: Date of Service 04/13/21: Patient reports feeling weak, fatigued not feeling well. He was feeli
--- NOTE | 2021-04-13 16:40 | PHAR ---
HOME MED VERIFIED MIRIAN ROOT 550MG TAKE 1 BID
[2021-04-13 16:56] LABS: Glucose Point of Care 172 mg/dl (65-105)
[2021-04-13] MEDS: ERTAPENEM SODIUM 0.5 GM in SODIUM CHLORIDE 0.9% IV 50 ML IVPB (17:45)
[2021-04-13] MEDS: rOPINIRole HCL 0.125 MG TABLET PO (22:08)
[2021-04-13] MEDS: ATORVASTATIN 40 MG TABLET PO (22:08)
[2021-04-13] MEDS: LATANOPROST 0.005% OP SOLN 2.5 ML BTL 1 DROP EACH EYE (22:08)
[2021-04-13] MEDS: TAMSULOSIN HCL 0.4 MG CAPSULE 0.8 MG PO (22:09)
[2021-04-13] MEDS: INSULIN GLARGINE (*BKC) 100 UNITS/ML 20 UNITS SUB-Q (22:10)
[2021-04-13] MEDS: VENLAFAXINE HCL XR 75 MG CAP.ER.24H PO (22:10)
[2021-04-14] VITALS (12 sets, daily range): BP systolic 122–179; BP diastolic 61–86; PULSE 64–77; RESP 13–21; TEMP 36.1–36.9; O2SAT 98–100
[2021-04-14 00:08] LABS: Glucose Point of Care 172 mg/dl (65-105)
[2021-04-14] MEDS: LACTATED RINGERS 1,000 ML 75 ML IV CONT (05:27)
[2021-04-14 06:34] LABS: Hematocrit 36.3 % (42.0-52.0); Mean Corpuscular HGB Conc 33.1 g/dl (32-36); Mean Corpuscular Hemoglobin 30.3 pg (26-34); Mean Corpuscular Volume 91.7 fl (80-100); Mean Platelet Volume 11.1 fl (7.4-10.4); Platelet Count Result 159 k/mm3 (150-375); Red Blood Count 3.96 M/mm3 (4.6-6.20); Red Cell Distribution Width 16.6 % (11.5-14.5); White Blood Count 11.5 K/mm3 (4.5-10.0)
[2021-04-14] MEDS: DEXTROSE 50% 25 GM/50 ML SYRINGE IV PUSH (06:55)
[2021-04-14 06:59] LABS: Anion Gap 10 mmol/L (8-16); Blood Urea Nitrogen 56 mg/dL (9-20); Calcium 9.4 mg/dL (8.4-10.2); Carbon Dioxide 23 mmol/L (22-30); Chloride 105 mmol/L (98-107); Estimated CRCL calculation 20 ml/min; Estimated Glomerular Filt Rate 21; Glucose 42 mg/dL (65-110); Potassium 3.9 mmol/L (3.4-5.0); Sodium 138 mmol/L (137-145)
[2021-04-14 07:34] LABS: Glucose Point of Care 117 mg/dl (65-105)
[2021-04-14 07:34] LABS: Glucose Point of Care 36 mg/dl (65-105)
[2021-04-14 08:08] LABS: Glucose Point of Care 79 mg/dl (65-105)
[2021-04-14] MEDS: APIXABAN 2.5 MG TABLET PO ×2 (08:17→16:00)
[2021-04-14] MEDS: DOCUSATE SODIUM 100 MG CAPSULE PO ×2 (08:17→16:00)
[2021-04-14] MEDS: PYRIDOXINE HCL 50 MG TABLET 100 MG PO (08:17)
[2021-04-14] MEDS: BUMETANIDE 1 MG TABLET PO (08:17)
[2021-04-14] MEDS: allopurinoL 150 MG TABLET PO (08:17)
[2021-04-14] MEDS: SACCHAROMYCES BOULARDII 250 MG CAPSULE PO ×2 (08:17→16:00)
[2021-04-14] MEDS: ISOSORBIDE DINITRATE 20 MG TABLET PO ×2 (08:17→12:00)
[2021-04-14] MEDS: VITAMIN B CMPLX/VIT C/FOLIC AC 1 CAPSULE 1 CAP PO (08:17)
[2021-04-14] MEDS: PANTOPRAZOLE 40 MG TABLET PO ×2 (08:17→22:02)
[2021-04-14] MEDS: CARBIDOPA/LEVODOPA 25/250 MG TABLET 1 TABLET PO ×2 (08:17→16:00)
[2021-04-14] MEDS: hydrALAZINE HCL 50 MG TABLET PO ×3 (08:17→16:00)
[2021-04-14] MEDS: ASPIRIN 81 MG CHEWABLE TABLET PO (08:17)
[2021-04-14] MEDS: carvediloL 12.5 MG TABLET PO ×2 (08:17→16:00)
[2021-04-14] MEDS: FERROUS SULFATE 324 MG TABLET PO (08:17)
[2021-04-14] MEDS: OXYBUTYNIN CHLORIDE 5 MG TABLET PO (08:17)
[2021-04-14] MEDS: predniSONE 5 MG TABLET PO (08:17)
[2021-04-14] MEDS: polyethylene glycoL 3350 17 GM POWD.PACK PO ×2 (08:18→16:00)
[2021-04-14] MEDS: BRIMONIDINE TARTRATE 0.2% OP SOLN 5 ML BTL 1 DROP EACH EYE ×3 (08:18→16:00)
--- NOTE | 2021-04-14 10:06 | PCPTNOTE ---
Patient refused treatment this session. Attempted to have patient perform supine LE exercises, patient would not participate. Patient stated cold and closed his eyes.
--- NOTE | 2021-04-14 10:40 | PCOTNOTE ---
Attempted to see Patient for A.M. OT treatment session. Patient very sleepy, refused to perform any activities at this time. Notified RN, she is aware. RN verbalized he had a fall yesterday due to his BP dropping very low. She would only like something done in bed. She also verbalized he has had a really low blood sugar this A.M. and has been lethargic.
[2021-04-14 11:29] LABS: Glucose Point of Care 160 mg/dl (65-105)
[2021-04-14] MEDS: CARBIDOPA/LEVODOPA 25/100 MG TABLET 2 TABLET PO ×2 (11:55→21:59)
--- NOTE | 2021-04-14 13:57 | PM.IMPN ---
Progress Note: A&P Assessment and Plan (1) Urinary tract infection: Qualifiers: Hematuria presence: with hematuria Urinary tract infection type: site unspecified Qualified Code(s): N39.0 - Urinary tract infection, site not specified; R31.9 - Hematuria, unspecified Code(s): N39.0 - Urinary tract infection, site not specified Status: Acute Assessment and Plan: The patient has Klebsiella ease bill UTI resistant to oral antibiotics. Patient has been admitted for IV antibiotic therapy. If patient's blood cultures are negative will request PICC line placement for outpatient antibiotic therapy with cefepime. Repeat urine cultures pending. Although patient is at increased risk for infections due to his history of prior renal transplant and chronic immunosuppressive therapy. Chronic immunosuppressive therapy has been ordered. Bladder scan was completed due to suprapubic tenderness which showed he was retaining 480 cc. Davidson catheter is helping with retention issues, now that we know were treating UTI accurately we have discussed removing the Davidson catheter in the morning and doing a voiding trial. Continue IV cefepime #3, 04/13/21 switched IV antibiotics to IV ertapenem because analysis is growing Proteus mirabilis which was not sensitive to cefepime. Will continue IV ertapenem #2 at this time and consider discharging on Augmentin orally at discharge. Blood culture show no growth to date Continue monitoring. (2) Renal transplant, status post: Code(s): Z94.0 - Kidney transplant status Status: Acute Assessment and Plan: The patient has chronic kidney disease but his creatinine is stable. Will monitor urine output closely. (3) Acute encephalopathy: Code(s): G93.40 - Encephalopathy, unspecified Status: Acute Assessment and Plan: Believe this is resolved another we have him on correct treatment. (4) Fall: Code(s): W19.XXXA - Unspecified fall, initial encounter Status: Acute Assessment and Plan: 04/13/21: The patient had a fall today. He needed to go to the bathroom his walking with the aid. He then felt lightheaded, denies syncopal episode or loss of consciousness. He fell to the ground and hit his right knee and possibly hit the right side of his head on the way down. He currently denies any pain or injury. We did do a CT head stat which showed no acute intracranial findings, chronic age-related findings. He had full range of motion of all of his joints to his lower extremities including hip and knees without any pain or resistance. Did not do further imaging of his extremities. Will do fall precautions. PT and OT onboard Patient feeling well today without any complaints of pain from his fall yesterday. He did not remember that he had fallen. Continue monitoring. (5) Orthostatic hypotension: Code(s): I95.1 - Orthostatic hypotension Status: Acute Assessment and Plan: The patient had just had his blood pressure checked prior to getting up and it was stable at 120 over 60. Then when he had fallen they recheck his blood pressure in showed he was 70/38, orthostatics. BP stable 179/84 today. Will discontinue IV fluids since he is awake, alert and eating well. Continue Cuauhtemoc hose on his lower extremities for orthostatic hypotension treatment Continue monitoring. (6) Nausea: Code(s): R11.0 - Nausea Status: Acute Assessment and Plan: The patient's states that he has frequent nausea episodes which is related to his gastroparesis. Usually his treatment is po vitamin as well as a benzodiazepine. No longer having nausea or abd issues Will continue monitoring and restart his medi
[2021-04-14] MEDS: ERTAPENEM SODIUM 0.5 GM in SODIUM CHLORIDE 0.9% IV 50 ML IVPB (15:12)
[2021-04-14 17:06] LABS: Glucose Point of Care 257 mg/dl (65-105)
[2021-04-14] MEDS: QUEtiapine FUMARATE 12.5 MG TABLET PO (17:13)
[2021-04-14] MEDS: INSULIN ASPART (*BKC) 100 UNITS/ML SUB-Q (17:13)
[2021-04-14] MEDS: LATANOPROST 0.005% OP SOLN 2.5 ML BTL 1 DROP EACH EYE (21:56)
[2021-04-14] MEDS: ATORVASTATIN 40 MG TABLET PO (21:56)
[2021-04-14] MEDS: VENLAFAXINE HCL XR 75 MG CAP.ER.24H PO (21:57)
[2021-04-14] MEDS: TAMSULOSIN HCL 0.4 MG CAPSULE 0.8 MG PO (21:57)
[2021-04-14] MEDS: rOPINIRole HCL 0.125 MG TABLET PO (22:02)
[2021-04-14 23:29] LABS: Glucose Point of Care 216 mg/dl (65-105)
[2021-04-15] VITALS (12 sets, daily range): BP systolic 74–194; BP diastolic 35–87; PULSE 70–89; RESP 14–21; TEMP 36.4–36.8; O2SAT 98–100
[2021-04-15 05:35] LABS: Basophils Percent Auto 0.5 % (0.2-1.2); Eosinophils Absolute Auto 0.1 K/mm3 (0-0.3); Eosinophils Percent Auto 1.2 % (0-4.4); Hematocrit 36.8 % (42.0-52.0); Hemoglobin 12.2 g/dL (14.0-18.0); Immature Granulocyte Absolute 0.04 K/mm3 (0.00-0.031); Immature Granulocyte Percent A 0.5 % (0-0.5); Lymphocytes Absolute Auto 2.71 K/mm3 (0.9-3.2); Lymphocytes Percent Auto 32.6 % (18.3-44.2); Mean Corpuscular HGB Conc 33.2 g/dl (32-36); Mean Corpuscular Volume 93.6 fl (80-100); Mean Platelet Volume 11.2 fl (7.4-10.4); Monocytes Absolute Auto 0.6 K/mm3 (0.1-0.6); Monocytes Percent Auto 7.7 % (2.6-8.5); Neutrophils Absolute Auto 4.8 K/mm3 (1.3-6.7); Neutrophils Percent Auto 57.5 % (45.5-73.1); Platelet Count Result 144 k/mm3 (150-375); Red Blood Count 3.93 M/mm3 (4.6-6.20); Red Cell Distribution Width 16.9 % (11.5-14.5); White Blood Count 8.3 K/mm3 (4.5-10.0)
[2021-04-15 05:53] LABS: Potassium 4.5 mmol/L (3.4-5.0)
[2021-04-15 06:05] LABS: Anion Gap 7 mmol/L (8-16); Blood Urea Nitrogen 60 mg/dL (9-20); Calcium 9.2 mg/dL (8.4-10.2); Carbon Dioxide 22 mmol/L (22-30); Chloride 104 mmol/L (98-107); Estimated CRCL calculation 21 ml/min; Estimated Glomerular Filt Rate 22; Glucose 170 mg/dL (65-110); Sodium 133 mmol/L (137-145)
[2021-04-15 07:53] LABS: Glucose Point of Care 177 mg/dl (65-105)
[2021-04-15] MEDS: calcitrioL 0.25 MCG CAPSULE 0.5 MCG PO (09:12)
[2021-04-15] MEDS: PYRIDOXINE HCL 50 MG TABLET 100 MG PO (09:12)
[2021-04-15] MEDS: OXYBUTYNIN CHLORIDE 5 MG TABLET PO (09:12)
[2021-04-15] MEDS: ASPIRIN 81 MG CHEWABLE TABLET PO (09:12)
[2021-04-15] MEDS: SACCHAROMYCES BOULARDII 250 MG CAPSULE PO ×2 (09:12→17:35)
[2021-04-15] MEDS: APIXABAN 2.5 MG TABLET PO ×2 (09:12→17:34)
[2021-04-15] MEDS: polyethylene glycoL 3350 17 GM POWD.PACK PO (09:12)
[2021-04-15] MEDS: PANTOPRAZOLE 40 MG TABLET PO ×2 (09:12→20:28)
[2021-04-15] MEDS: FERROUS SULFATE 324 MG TABLET PO (09:12)
[2021-04-15] MEDS: allopurinoL 150 MG TABLET PO (09:12)
[2021-04-15] MEDS: CARBIDOPA/LEVODOPA 25/250 MG TABLET 1 TABLET PO ×2 (09:12→17:34)
[2021-04-15] MEDS: VITAMIN B CMPLX/VIT C/FOLIC AC 1 CAPSULE 1 CAP PO (09:12)
[2021-04-15] MEDS: carvediloL 12.5 MG TABLET PO (09:13)
[2021-04-15] MEDS: predniSONE 5 MG TABLET PO (09:13)
[2021-04-15] MEDS: BRIMONIDINE TARTRATE 0.2% OP SOLN 5 ML BTL 1 DROP EACH EYE ×3 (09:13→17:34)
[2021-04-15] MEDS: DOCUSATE SODIUM 100 MG CAPSULE PO ×2 (09:13→17:35)
[2021-04-15] MEDS: INSULIN GLARGINE (*BKC) 100 UNITS/ML 15 UNITS SUB-Q (09:14)
--- NOTE | 2021-04-15 11:46 | PM.IMPN ---
Progress Note: A&P Assessment and Plan (1) Generalized weakness: Code(s): R53.1 - Weakness Status: Acute Assessment and Plan: The patient reports generalized weakness but reports right-sided weakness greater than the left and some numbness and tingling to his right temp oral area along with a headache. On exam his strength appears to be equal bilaterally, no pronator drift, normal finger to nose heel to avila. Patient's blood pressure has been on the high side so we will check a CT stat and if normal will get an MRI of his brain to rule out acute stroke. I feel most of his symptoms could be related to the dose of Seroquel I gave him last night since he was having paranoid and delusional thoughts believed to be due from acute UTI and hospital delirium. Talked to his says he has had ICU psychosis and hospital delirium in the past. The dosing of Seroquel like a was 12.5 mg 1 time at 5:00 p.m. yesterday. It shows that there is no renal adjustment needed for this medication. Will continue monitoring him throughout the day and get further workup to rule out other acute cause. (2) Urinary tract infection: Qualifiers: Hematuria presence: with hematuria Urinary tract infection type: site unspecified Qualified Code(s): N39.0 - Urinary tract infection, site not specified; R31.9 - Hematuria, unspecified Code(s): N39.0 - Urinary tract infection, site not specified Status: Acute Assessment and Plan: The patient has Klebsiella ease bill UTI resistant to oral antibiotics. Patient has been admitted for IV antibiotic therapy. If patient's blood cultures are negative will request PICC line placement for outpatient antibiotic therapy with cefepime. Repeat urine cultures pending. Although patient is at increased risk for infections due to his history of prior renal transplant and chronic immunosuppressive therapy. Chronic immunosuppressive therapy has been ordered. Bladder scan was completed due to suprapubic tenderness which showed he was retaining 480 cc. Davidson catheter is helping with retention issues, now that we know were treating UTI accurately we have discussed removing the Davidson catheter in the morning and doing a voiding trial. Continue IV cefepime #3, 04/13/21 switched IV antibiotics to IV ertapenem because analysis is growing Proteus mirabilis which was not sensitive to cefepime. Will continue IV ertapenem #3 at this time and consider discharging on Augmentin orally at discharge. Davidson catheter was removed this morning we are undergoing a voiding trial at this time. He is unable to urinate we will have to replace Davidson catheter and have him follow-up with the urologist Blood culture show no growth to date Continue monitoring. (3) Orthostatic hypotension: Code(s): I95.1 - Orthostatic hypotension Status: Acute Assessment and Plan: Patient's states he has a history of orthostatic hypotension and was on midodrine at some point in time. Currently he is on 4 different blood pressure medications. Blood pressure while he is lying down resting was 171/80. Positive for orthostatic hypotension and dropped to 74/35 with standing. He did have Cuauhtemoc Hose on at that time and was symptomatic which was relieved with laying down. Will consult Cardiology for further input. I had placed his BP medications: Hydralazine, Isosorbide, and Bumex on hold since 04/15/21 afternoon to see if it would help with his orthostatic hypotension Will give 500 cc IV fluids x1 at this time Continue Cuauhtemoc hose on his lower extremities for orthostatic hypotension treatment Continue monitoring. (4) Renal transplant, status post: Code(s): Z94.0 - Kidney transplant status Status: Acute Assessment and Plan: The patient has chronic kidney disease but his creatinin
[2021-04-15] MEDS: LACTATED RINGERS 500 ML 75 ML IV CONT (11:51)
[2021-04-15] MEDS: CARBIDOPA/LEVODOPA 25/100 MG TABLET 2 TABLET PO ×2 (11:52→20:27)
[2021-04-15 11:57] LABS: Glucose Point of Care 217 mg/dl (65-105)
[2021-04-15] MEDS: INSULIN ASPART (*BKC) 100 UNITS/ML SUB-Q (12:03)
--- NOTE | 2021-04-15 13:44 | PM.CNCAR ---
Assessment and Plan Additional Plan This is a 75-year-old gentleman with a complex situation in that he has coronary disease with a previous bypass operation a previous TAVR procedure about a year and half ago. Prior to that he had very poor left ventricular systolic function which did improve nicely following TAVR. Does not have any evidence of decompensated heart failure. He also has chronic kidney disease with a baseline creatinine of about 2.8 with his renal transplant graft. At this point I would recommend stopping all of his vasodilators I will try to keep the tamsulosin going for the time being. I am going to switch his beta-cyndi to a low dose of metoprolol. Since he now has good left ventricular systolic function he may not require all these vasodilators for treating his heart disease. We will almost certainly have to accept a significant degree of supine hypertension to avoid problematic hypotension. We will follow his vital signs with you as we make these adjustments in medications. This patient would ideally be hospitalized at [facility] where he receives all of his care pertinent to his heart disease and his transplant kidney Mateusz Erwin MD [facility] History of Present Illness History of Present Illness Consult date/time: 04/15/21 13:44 Consult reason: hypotension Reason For Visit: UTI Narrative: This is a 75-year-old gentleman with a rather complicated cardiovascular history. He has received none of his care from our practice here at [facility] in the past. I am seeing him today at the request of the hospitalist because of orthostatic hypotension. The patient is comfortable at this time and does not have any active complaints. He says that he came to the hospital several days ago because his thought he was confused. He was brought here because of concerning regarding mental status changes. While he has been in the hospital and has been noticed that he is significantly/problematically orthostatic current readings show his systolic blood pressure supine to be in the 160s and in the mid 70s to on standing. He says that he has not had any episodes of logan syncope as a result of this but he does carry the diagnosis of orthostatic hypotension on previous records that are up are in his chart from [facility] where he receives his care. He has a history of coronary artery disease having undergone a coronary artery bypass operation in 2007. The operation apparently consisted of an internal mammary graft to the LAD and a radial artery T graft to the OM and to the RPDA. Unfortunately he developed occurs severe aortic valve stenosis in follow-up and in 2019 was found to have severe LV systolic dysfunction and critical aortic stenosis. He underwent a TAVR procedure at [facility] by Dr. Reyna Kaye which was very nicely successful. According to the records he had a very low ejection fraction prior to the procedure which normalized on subsequent echocardiography his history is also complicated by the fact that he has serious renal disease and has a renal transplant that was also performed at the [facility]. He according to the chart was brought to [facility] Emergency Room because of generalized weakness and because of the problematic orthostasis we have been consulted to see him today. His medical regimen upon admission includes anticoagulation with apixaban, low-dose aspirin, Bumex 1 mg daily, carvedilol 12.5 mg twice daily, hydralazine 50 mg t.i.d. and isosorbide 20 mg t.i.d.. He also takes tamsulosin 0.8 mg at bedtime. Obviously he takes multiple medications that could result in problematic orthostasis. His vasodilators have been stopped his beta-cyndi has not been stopped and in this setting I am seeing him in consultation. He is alert and provides a reasonable history is patient does seem slow he answers questions appropriately but takes long deliberate time in answering questions
[2021-04-15 17:28] LABS: Glucose Point of Care 181 mg/dl (65-105)
[2021-04-15] MEDS: ERTAPENEM SODIUM 0.5 GM in SODIUM CHLORIDE 0.9% IV 50 ML IVPB (17:33)
[2021-04-15] MEDS: ATORVASTATIN 40 MG TABLET PO (20:27)
[2021-04-15] MEDS: VENLAFAXINE HCL XR 75 MG CAP.ER.24H PO (20:28)
[2021-04-15] MEDS: LATANOPROST 0.005% OP SOLN 2.5 ML BTL 1 DROP EACH EYE (20:28)
[2021-04-15] MEDS: rOPINIRole HCL 0.125 MG TABLET PO (20:28)
[2021-04-15] MEDS: TAMSULOSIN HCL 0.4 MG CAPSULE 0.8 MG PO (20:29)
[2021-04-15 22:08] LABS: Glucose Point of Care 179 mg/dl (65-105)
[2021-04-16] VITALS (10 sets, daily range): BP systolic 125–190; BP diastolic 59–88; PULSE 68–78; RESP 14–21; TEMP 36.5–37.1; O2SAT 98–100
[2021-04-16 05:42] LABS: Hematocrit 37.7 % (42.0-52.0); Hemoglobin 12.5 g/dL (14.0-18.0); Mean Corpuscular HGB Conc 33.2 g/dl (32-36); Mean Corpuscular Hemoglobin 30.3 pg (26-34); Mean Corpuscular Volume 91.5 fl (80-100); Mean Platelet Volume 11.2 fl (7.4-10.4); Platelet Count Result 145 k/mm3 (150-375); Red Blood Count 4.12 M/mm3 (4.6-6.20); Red Cell Distribution Width 16.6 % (11.5-14.5); White Blood Count 7.7 K/mm3 (4.5-10.0)
[2021-04-16 05:49] LABS: Anion Gap 7 mmol/L (8-16); Blood Urea Nitrogen 62 mg/dL (9-20); Calcium 9.1 mg/dL (8.4-10.2); Carbon Dioxide 23 mmol/L (22-30); Chloride 101 mmol/L (98-107); Estimated CRCL calculation 22 ml/min; Estimated Glomerular Filt Rate 23; Glucose 153 mg/dL (65-110); Potassium 4.8 mmol/L (3.4-5.0); Sodium 131 mmol/L (137-145)
[2021-04-16 08:18] LABS: Glucose Point of Care 155 mg/dl (65-105)
[2021-04-16] MEDS: APIXABAN 2.5 MG TABLET PO ×2 (08:49→16:00)
[2021-04-16] MEDS: allopurinoL 150 MG TABLET PO (08:50)
[2021-04-16] MEDS: BRIMONIDINE TARTRATE 0.2% OP SOLN 5 ML BTL 1 DROP EACH EYE ×3 (08:50→16:00)
[2021-04-16] MEDS: predniSONE 5 MG TABLET PO (08:50)
[2021-04-16] MEDS: VITAMIN B CMPLX/VIT C/FOLIC AC 1 CAPSULE 1 CAP PO (08:50)
[2021-04-16] MEDS: OXYBUTYNIN CHLORIDE 5 MG TABLET PO (08:50)
[2021-04-16] MEDS: PANTOPRAZOLE 40 MG TABLET PO ×2 (08:50→21:55)
[2021-04-16] MEDS: FERROUS SULFATE 324 MG TABLET PO (08:50)
[2021-04-16] MEDS: CARBIDOPA/LEVODOPA 25/250 MG TABLET 1 TABLET PO ×2 (08:50→16:00)
[2021-04-16] MEDS: DOCUSATE SODIUM 100 MG CAPSULE PO ×2 (08:50→16:00)
[2021-04-16] MEDS: ASPIRIN 81 MG CHEWABLE TABLET PO (08:50)
[2021-04-16] MEDS: PYRIDOXINE HCL 50 MG TABLET 100 MG PO (08:50)
[2021-04-16] MEDS: SACCHAROMYCES BOULARDII 250 MG CAPSULE PO ×2 (08:50→16:00)
[2021-04-16] MEDS: METOPROLOL SUCCINATE EXT REL 25 MG TABCR PO (08:51)
[2021-04-16] MEDS: INSULIN GLARGINE (*BKC) 100 UNITS/ML 11 UNITS SUB-Q (08:52)
--- NOTE | 2021-04-16 09:54 | PM.PNCARD ---
Progress Note: A&P Assessment and Plan (1) Orthostatic hypotension: Code(s): I95.1 - Orthostatic hypotension Status: Acute Assessment and Plan: Orthostatics not performed today but he still drop significantly with sitting up. In my opinion, it makes sense to reduce his tamsulosin down to 0.4 mg daily from his 0.8 mg daily that he is currently on to see if this also helps his orthostasis especially in lieu of his known cardiomyopathy, hypertension, coronary disease and potential need for standard antihypertensive medications (2) Status post transcatheter aortic valve replacement (TAVR) using bioprosthesis: Code(s): Z95.3 - Presence of xenogenic heart valve Status: Acute (3) Coronary artery disease: Code(s): I25.10 - Atherosclerotic heart disease of [place] coronary artery without angina pectoris Status: Inactive Assessment and Plan: Asymptomatic. Continue beta-cyndi, aspirin, statin (4) HTN (hypertension): Qualifiers: Hypertension type: essential hypertension Qualified Code(s): I10 - Essential (primary) hypertension Code(s): I10 - Essential (primary) hypertension Status: Chronic Assessment and Plan: Certain degree of resting supine hypertension will likely need to be assumed given his marked drop in blood pressure upon standing. Will continue to adjust medications as above (5) Cardiomyopathy: Code(s): I42.9 - Cardiomyopathy, unspecified Status: Acute Assessment and Plan: Improved post TAVR Subjective Date/time seen: 04/16/21 09:54 Interval history: 75-year-old admitted because of mental status changes, some weakness as well as orthostasis and dizziness. He has a history of coronary disease, cardiomyopathy, status post TAVR Date of service 04/16/2021: Still having some significant orthostasis according to vitals yesterday and even when sitting up. Blood pressure while supine was markedly elevated. He states that he feels about the same and at times has some dizziness when getting up. No syncope. No chest pain or shortness of breath Review of Systems Constitutional: Constitutional: Reports weakness Eyes: Eyes: Reports no additional eye complaints ENT: Reports system reviewed and no additional complaints, except as documented Cardiovascular: Cardiovascular: Reports no additional cardiovascular complaints Respiratory: Respiratory: Reports no additional respiratory complaints Gastrointestinal: Gastrointestinal: Reports no additional gastrointestinal complaints Musculoskeletal: Musculoskeletal: Reports arthralgias Integumentary/Breasts: Skin/Breast: Reports system reviewed and no additional complaints, except as docu Neurologic: Reports as per HPI and Reports weakness Endocrine: Endocrine: Reports no additional endocrine complaints Hematologic/Lymphatic: Hematologic/Lymphatic: Reports no additional hematologic/lymphatic complaints Allergic/Immunologic: Allergic/Immunologic: Reports no additional allergic/immunologic complaints Exam Const: General: comfortable and no acute distress Other: Tall thin elderly gentleman in no distress as stated above does answer questions appropriately but does have somewhat slow mentation HENMT: Mouth: Yes dry mucous membranes Eyes: Sclera: sclerae normal Pupils: Equal, round and reactive pupils present Neck: Neck: supple and no JVD Resp: Effort & Inspection: normal respiratory effort Auscultation: clear to auscultation bilaterally Cardio: Rate: regular rate Rhythm: regular rhythm Other: Very soft systolic murmur at the base does not radiate no audible aortic regurgitation GI: Auscultation: normal bowel sounds Skin: General skin exam: normal color Neuro: Cranial nerves: Yes Equal, round and reactive pupils present Other: Slow cognition Extrem: General: normal to inspection Other: No peripheral edema at all Psych: Appearance: grossly normal Objective Da
--- NOTE | 2021-04-16 11:32 | PM.IMPN ---
Progress Note: A&P Assessment and Plan (1) Generalized weakness: Code(s): R53.1 - Weakness Status: Acute Assessment and Plan: The patient reports generalized weakness but reports right-sided weakness greater than the left and some numbness and tingling to his right temp oral area along with a headache. On exam his strength appears to be equal bilaterally, no pronator drift, normal finger to nose heel to avila. Patient's blood pressure has been on the high side so we will check a CT stat and if normal will get an MRI of his brain to rule out acute stroke. I feel most of his symptoms could be related to the dose of Seroquel I gave him last night since he was having paranoid and delusional thoughts believed to be due from acute UTI and hospital delirium. Talked to his says he has had ICU psychosis and hospital delirium in the past. The dosing of Seroquel like a was 12.5 mg 1 time at 5:00 p.m. 04/14/21. It shows that there is no renal adjustment needed for this medication. Patient's CT head from 04/15/2021 showed no acute intracranial findings. Further evaluation with a brain MRI showed no acute intracranial findings, chronic age-related findings. 04/16/2021: Patient is feeling much better and back to his baseline without any concerns or issues. Continue monitoring. (2) Urinary tract infection: Qualifiers: Hematuria presence: with hematuria Urinary tract infection type: site unspecified Qualified Code(s): N39.0 - Urinary tract infection, site not specified; R31.9 - Hematuria, unspecified Code(s): N39.0 - Urinary tract infection, site not specified Status: Acute Assessment and Plan: The patient has Klebsiella ease bill UTI resistant to oral antibiotics. Patient has been admitted for IV antibiotic therapy. If patient's blood cultures are negative will request PICC line placement for outpatient antibiotic therapy with cefepime. Repeat urine cultures pending. Although patient is at increased risk for infections due to his history of prior renal transplant and chronic immunosuppressive therapy. Chronic immunosuppressive therapy has been ordered. Bladder scan was completed due to suprapubic tenderness which showed he was retaining 480 cc. Davidson catheter is helping with retention issues, now that we know were treating UTI accurately we have discussed removing the Davidson catheter in the morning and doing a voiding trial. Continue IV cefepime #3, 04/13/21 switched IV antibiotics to IV ertapenem because analysis is growing Proteus mirabilis which was not sensitive to cefepime. Will continue IV ertapenem #4 at this time Davidson catheter was removed 04/15/21 and he failed his voiding trial. He was retaining greater than 400 cc of urine in his bladder and could not urinate further. It was decided that he would put the Davidson catheter back in place in follow-up with the urologist as an outpatient. Blood culture show no growth to date Continue monitoring. (3) Orthostatic hypotension: Code(s): I95.1 - Orthostatic hypotension Status: Acute Assessment and Plan: Patient's states he has a history of orthostatic hypotension and was on midodrine at some point in time. Currently he is on 4 different blood pressure medications. Blood pressure while he is lying down resting is hypertensive at 179/84. Cardiology is okay with a supine hypertension because of the significance of his orthostatic hypotension with sitting and standing. We will continue with Cuauhtemoc Gandhi while he is awake Cardiology evaluated the patient and has discontinued his vaso dilator blood pressure medications: Hydralazine, Isosorbide, and Bumex on hold since 04/14/21 and they are decreasing his tamsulosin 0.4 mg to see if this helps 04/15/21: He was given 1x 500 cc of normal saline. He appears well hydrated at this time eating and drinking li
[2021-04-16 11:39] LABS: Glucose Point of Care 197 mg/dl (65-105)
[2021-04-16] MEDS: CARBIDOPA/LEVODOPA 25/100 MG TABLET 2 TABLET PO ×2 (11:52→21:54)
[2021-04-16] MEDS: ERTAPENEM SODIUM 0.5 GM in SODIUM CHLORIDE 0.9% IV 50 ML IVPB (15:56)
[2021-04-16 16:38] LABS: Glucose Point of Care 206 mg/dl (65-105)
[2021-04-16] MEDS: INSULIN ASPART (*BKC) 100 UNITS/ML SUB-Q (16:45)
[2021-04-16] MEDS: ATORVASTATIN 40 MG TABLET PO (21:54)
[2021-04-16] MEDS: LATANOPROST 0.005% OP SOLN 2.5 ML BTL 1 DROP EACH EYE (21:55)
[2021-04-16] MEDS: rOPINIRole HCL 0.125 MG TABLET PO (21:55)
[2021-04-16] MEDS: TAMSULOSIN HCL 0.4 MG CAPSULE PO (21:55)
[2021-04-16] MEDS: VENLAFAXINE HCL XR 75 MG CAP.ER.24H PO (21:55)
[2021-04-16 22:01] LABS: Glucose Point of Care 184 mg/dl (65-105)
[2021-04-17] VITALS (12 sets, daily range): BP systolic 68–189; BP diastolic 42–94; PULSE 70–78; RESP 14–20; TEMP 36.1–37.1; O2SAT 97–100
[2021-04-17 06:15] LABS: Hematocrit 38.3 % (42.0-52.0); Hemoglobin 12.8 g/dL (14.0-18.0); Mean Corpuscular HGB Conc 33.4 g/dl (32-36); Mean Corpuscular Hemoglobin 30.4 pg (26-34); Platelet Count Result 147 k/mm3 (150-375); Red Blood Count 4.21 M/mm3 (4.6-6.20); White Blood Count 7.7 K/mm3 (4.5-10.0)
[2021-04-17 06:36] LABS: Anion Gap 8 mmol/L (8-16); Blood Urea Nitrogen 62 mg/dL (9-20); Calcium 9.1 mg/dL (8.4-10.2); Carbon Dioxide 23 mmol/L (22-30); Chloride 100 mmol/L (98-107); Estimated CRCL calculation 24 ml/min; Estimated Glomerular Filt Rate 25; Glucose 136 mg/dL (65-110); Potassium 4.6 mmol/L (3.4-5.0); Sodium 131 mmol/L (137-145)
[2021-04-17 07:52] LABS: Glucose Point of Care 149 mg/dl (65-105)
[2021-04-17] MEDS: PYRIDOXINE HCL 50 MG TABLET 100 MG PO (08:01)
[2021-04-17] MEDS: ASPIRIN 81 MG CHEWABLE TABLET PO (08:02)
[2021-04-17] MEDS: PANTOPRAZOLE 40 MG TABLET PO ×2 (08:02→21:20)
[2021-04-17] MEDS: CARBIDOPA/LEVODOPA 25/250 MG TABLET 1 TABLET PO ×2 (08:02→16:57)
[2021-04-17] MEDS: OXYBUTYNIN CHLORIDE 5 MG TABLET PO (08:02)
[2021-04-17] MEDS: APIXABAN 2.5 MG TABLET PO ×2 (08:02→16:58)
[2021-04-17] MEDS: FERROUS SULFATE 324 MG TABLET PO (08:02)
[2021-04-17] MEDS: SACCHAROMYCES BOULARDII 250 MG CAPSULE PO ×2 (08:02→16:59)
[2021-04-17] MEDS: DOCUSATE SODIUM 100 MG CAPSULE PO ×2 (08:03→16:57)
[2021-04-17] MEDS: METOPROLOL SUCCINATE EXT REL 25 MG TABCR PO (08:03)
[2021-04-17] MEDS: predniSONE 5 MG TABLET PO (08:03)
[2021-04-17] MEDS: allopurinoL 150 MG TABLET PO (08:03)
[2021-04-17] MEDS: BRIMONIDINE TARTRATE 0.2% OP SOLN 5 ML BTL 1 DROP EACH EYE ×3 (08:03→16:58)
[2021-04-17] MEDS: INSULIN GLARGINE (*BKC) 100 UNITS/ML 11 UNITS SUB-Q (08:13)
--- NOTE | 2021-04-17 08:38 | PM.PNCARD ---
Progress Note: A&P Assessment and Plan (1) Orthostatic hypotension: Code(s): I95.1 - Orthostatic hypotension Status: Acute Assessment and Plan: Fall Orthostatics not performed again today but symptomatic he seems better. Continue lower dose tamsulosin to see if this also helps his orthostasis especially in lieu of his known cardiomyopathy, hypertension, coronary disease and potential need for standard antihypertensive medications (2) Status post transcatheter aortic valve replacement (TAVR) using bioprosthesis: Code(s): Z95.3 - Presence of xenogenic heart valve Status: Acute (3) Coronary artery disease: Code(s): I25.10 - Atherosclerotic heart disease of [place] coronary artery without angina pectoris Status: Inactive Assessment and Plan: Asymptomatic. Continue beta-cyndi, aspirin, statin (4) HTN (hypertension): Qualifiers: Hypertension type: essential hypertension Qualified Code(s): I10 - Essential (primary) hypertension Code(s): I10 - Essential (primary) hypertension Status: Chronic Assessment and Plan: Certain degree of resting supine hypertension will likely need to be assumed given his marked drop in blood pressure upon standing. (5) Cardiomyopathy: Code(s): I42.9 - Cardiomyopathy, unspecified Status: Acute Assessment and Plan: Improved post TAVR Subjective Date/time seen: 04/17/21 08:38 Interval history: 75-year-old admitted because of mental status changes, some weakness as well as orthostasis and dizziness. He has a history of coronary disease, cardiomyopathy, status post TAVR Date of service 04/16/2021: Still having some significant orthostasis according to vitals yesterday and even when sitting up. Blood pressure while supine was markedly elevated. He states that he feels about the same and at times has some dizziness when getting up. No syncope. No chest pain or shortness of breath Date of service 04/17/2021: Symptomatically seems better. Am not low sure how much he is actually getting up though. Full orthostatics were not documented. No chest pain or shortness of breath Review of Systems Constitutional: Constitutional: Reports weakness Eyes: Eyes: Reports no additional eye complaints ENT: Reports system reviewed and no additional complaints, except as documented Cardiovascular: Cardiovascular: Reports no additional cardiovascular complaints Respiratory: Respiratory: Reports no additional respiratory complaints Gastrointestinal: Gastrointestinal: Reports no additional gastrointestinal complaints Musculoskeletal: Musculoskeletal: Reports arthralgias Integumentary/Breasts: Skin/Breast: Reports system reviewed and no additional complaints, except as docu Neurologic: Reports as per HPI and Reports weakness Endocrine: Endocrine: Reports no additional endocrine complaints Hematologic/Lymphatic: Hematologic/Lymphatic: Reports no additional hematologic/lymphatic complaints Allergic/Immunologic: Allergic/Immunologic: Reports no additional allergic/immunologic complaints Exam Const: General: comfortable and no acute distress Other: Tall thin elderly gentleman in no distress as stated above does answer questions appropriately but does have somewhat slow mentation HENMT: Mouth: Yes dry mucous membranes Eyes: Sclera: sclerae normal Pupils: Equal, round and reactive pupils present Neck: Neck: supple and no JVD Resp: Effort & Inspection: normal respiratory effort Auscultation: clear to auscultation bilaterally Cardio: Rate: regular rate Rhythm: regular rhythm Other: Very soft systolic murmur at the base does not radiate no audible aortic regurgitation GI: Auscultation: normal bowel sounds Skin: General skin exam: normal color Neuro: Cranial nerves: Yes Equal, round and reactive pupils present Other: Slow cognition Extrem: General: normal to inspection Other: No peripheral edema
--- NOTE | 2021-04-17 10:02 | PM.IMPN ---
Progress Note: A&P Assessment and Plan (1) Orthostatic hypotension: Code(s): I95.1 - Orthostatic hypotension Status: Acute Assessment and Plan: Patient's states he has a history of orthostatic hypotension and was on midodrine at some point in time. Currently he is on 4 different blood pressure medications. Blood pressure while he is lying down resting is hypertensive at 179/84. Cardiology is okay with a supine hypertension because of the significance of his orthostatic hypotension with sitting and standing. We will continue with Cuauhtemoc Hoses while he is awake He appears well hydrated at this time eating and drinking like normal. Cardiology evaluated the patient and has discontinued his vaso dilator blood pressure medications: Hydralazine, Isosorbide, and Bumex on hold since 04/14/21 and they are decreasing his tamsulosin 0.4 mg to see if this helps Still having a 50 point drop from laying to standing and symptomatic. Appreciate cardiology's input. Continue monitoring. (2) Urinary tract infection: Qualifiers: Hematuria presence: with hematuria Urinary tract infection type: site unspecified Qualified Code(s): N39.0 - Urinary tract infection, site not specified; R31.9 - Hematuria, unspecified Code(s): N39.0 - Urinary tract infection, site not specified Status: Acute Assessment and Plan: The patient has Klebsiella ease bill UTI resistant to oral antibiotics. Patient has been admitted for IV antibiotic therapy. If patient's blood cultures are negative will request PICC line placement for outpatient antibiotic therapy with cefepime. Repeat urine cultures pending. Although patient is at increased risk for infections due to his history of prior renal transplant and chronic immunosuppressive therapy. Chronic immunosuppressive therapy has been ordered. Bladder scan was completed due to suprapubic tenderness which showed he was retaining 480 cc. Davidson catheter is helping with retention issues, now that we know were treating UTI accurately we have discussed removing the Davidson catheter in the morning and doing a voiding trial. Continue IV cefepime #3, 04/13/21 switched IV antibiotics to IV ertapenem because analysis is growing Proteus mirabilis which was not sensitive to cefepime. Will continue IV ertapenem #4 at this time Dvaidson catheter was removed 04/15/21 and he failed his voiding trial. He was retaining greater than 400 cc of urine in his bladder and could not urinate further. It was decided that he would put the Davidson catheter back in place in follow-up with the urologist as an outpatient. Blood culture show no growth to date Continue monitoring. (3) Generalized weakness: Code(s): R53.1 - Weakness Status: Acute Assessment and Plan: The patient reports generalized weakness but reports right-sided weakness greater than the left and some numbness and tingling to his right temp oral area along with a headache. On exam his strength appears to be equal bilaterally, no pronator drift, normal finger to nose heel to avila. Patient's blood pressure has been on the high side so we will check a CT stat and if normal will get an MRI of his brain to rule out acute stroke. I feel most of his symptoms could be related to the dose of Seroquel I gave him last night since he was having paranoid and delusional thoughts believed to be due from acute UTI and hospital delirium. Talked to his says he has had ICU psychosis and hospital delirium in the past. The dosing of Seroquel like a was 12.5 mg 1 time at 5:00 p.m. 04/14/21. It shows that there is no renal adjustment needed for this medication. Patient's CT head from 04/15/2021 showed no acute intracranial findings. Further evaluation with a brain MRI showed no acute intracranial findings, chronic age-related findings. 04/17/2021: Patient is feeling much
[2021-04-17 11:51] LABS: Glucose Point of Care 176 mg/dl (65-105)
[2021-04-17] MEDS: VITAMIN B CMPLX/VIT C/FOLIC AC 1 CAPSULE 1 CAP PO (11:52)
[2021-04-17] MEDS: CARBIDOPA/LEVODOPA 25/100 MG TABLET 2 TABLET PO ×2 (11:52→21:20)
[2021-04-17 16:48] LABS: Glucose Point of Care 219 mg/dl (65-105)
[2021-04-17] MEDS: ERTAPENEM SODIUM 0.5 GM in SODIUM CHLORIDE 0.9% IV 50 ML IVPB (16:58)
[2021-04-17] MEDS: INSULIN ASPART (*BKC) 100 UNITS/ML SUB-Q (16:59)
[2021-04-17] MEDS: ATORVASTATIN 40 MG TABLET PO (21:19)
[2021-04-17] MEDS: rOPINIRole HCL 0.125 MG TABLET PO (21:19)
[2021-04-17] MEDS: LATANOPROST 0.005% OP SOLN 2.5 ML BTL 1 DROP EACH EYE (21:20)
[2021-04-17] MEDS: VENLAFAXINE HCL XR 75 MG CAP.ER.24H PO (21:20)
[2021-04-17] MEDS: TAMSULOSIN HCL 0.4 MG CAPSULE PO (21:20)
[2021-04-17 21:56] LABS: Glucose Point of Care 156 mg/dl (65-105)
[2021-04-18] VITALS (11 sets, daily range): BP systolic 110–187; BP diastolic 64–110; PULSE 68–109; RESP 16–17; TEMP 36.4–36.6; O2SAT 97–100
[2021-04-18 08:10] LABS: Glucose Point of Care 95 mg/dl (65-105)
[2021-04-18] MEDS: ASPIRIN 81 MG CHEWABLE TABLET PO (08:15)
[2021-04-18] MEDS: calcitrioL 0.25 MCG CAPSULE 0.5 MCG PO (08:16)
[2021-04-18] MEDS: APIXABAN 2.5 MG TABLET PO ×2 (08:16→16:39)
[2021-04-18] MEDS: allopurinoL 150 MG TABLET PO (08:16)
[2021-04-18] MEDS: BRIMONIDINE TARTRATE 0.2% OP SOLN 5 ML BTL 1 DROP EACH EYE ×3 (08:16→16:39)
[2021-04-18] MEDS: DOCUSATE SODIUM 100 MG CAPSULE PO ×2 (08:17→16:39)
[2021-04-18] MEDS: METOPROLOL SUCCINATE EXT REL 25 MG TABCR PO (08:17)
[2021-04-18] MEDS: CARBIDOPA/LEVODOPA 25/250 MG TABLET 1 TABLET PO ×2 (08:17→16:39)
[2021-04-18] MEDS: FERROUS SULFATE 324 MG TABLET PO (08:17)
[2021-04-18] MEDS: VITAMIN B CMPLX/VIT C/FOLIC AC 1 CAPSULE 1 CAP PO (08:18)
[2021-04-18] MEDS: PYRIDOXINE HCL 50 MG TABLET 100 MG PO (08:18)
[2021-04-18] MEDS: SACCHAROMYCES BOULARDII 250 MG CAPSULE PO ×2 (08:18→16:39)
[2021-04-18] MEDS: OXYBUTYNIN CHLORIDE 5 MG TABLET PO (08:18)
[2021-04-18] MEDS: predniSONE 5 MG TABLET PO (08:18)
[2021-04-18] MEDS: PANTOPRAZOLE 40 MG TABLET PO ×2 (08:18→20:17)
[2021-04-18] MEDS: INSULIN GLARGINE (*BKC) 100 UNITS/ML 11 UNITS SUB-Q (08:22)
--- NOTE | 2021-04-18 10:26 | PM.PNCARD ---
Progress Note: A&P Assessment and Plan (1) Orthostatic hypotension: Code(s): I95.1 - Orthostatic hypotension Status: Acute Assessment and Plan: Check Orthostatics this a.m., severely orthostatic last night. Patient denies symptoms at this time. He otherwise has no other complaints. Explained once again very difficult situation. Will need to hold metoprolol and likely tamsulosin if remains severely orthostatic. Need to ensure consistent oral intake. If with a static once again will give IV fluid normal saline 500 cc over 2 hours as he has a documented negative fluid balance over the past 24-36 hours. Orthostatics not performed. Recommendations to follow. - continue compression stockings. - Very difficult management as discussed once again. Patient verbalized understanding. - Discussed midodrine although patient continues to have significant supine hypertension which can significantly exacerbate this problem. (2) Status post transcatheter aortic valve replacement (TAVR) using bioprosthesis: Code(s): Z95.3 - Presence of xenogenic heart valve Status: Acute Assessment and Plan: stable, no acute issues. (3) Coronary artery disease: Code(s): I25.10 - Atherosclerotic heart disease of [place] coronary artery without angina pectoris Status: Inactive Assessment and Plan: Asymptomatic. Continue beta-cyndi as BP permits, aspirin, statin (4) HTN (hypertension): Qualifiers: Hypertension type: essential hypertension Qualified Code(s): I10 - Essential (primary) hypertension Code(s): I10 - Essential (primary) hypertension Status: Chronic Assessment and Plan: Supine hypertension to a degree will need to be accepted given his marked drop in blood pressure upon standing. However, still need to monitor the severity in this regard Particularly if additional therapy such as midodrine is deemed necessary. (5) Cardiomyopathy: Code(s): I42.9 - Cardiomyopathy, unspecified Status: Acute Assessment and Plan: Improved post TAVR Off vasodilators therapy due to intolerance secondary to severe orthostatic hypotension. Subjective Date/time seen: Date of service:04/18/21 10:26 Interval history: Follow-up in this 75-year-old admitted because of mental status changes, some weakness as well as orthostasis and dizziness. He has a history of coronary disease, cardiomyopathy, status post TAVR 04/18/2021: Patient denies chest pain, shortness of breath. States he is eating and drinking reasonably well. No new issues overnight. Denies dizziness or lightheadedness although he is not getting up much. Severely orthostatic last night, not performed this morning. Review of Systems Review of Systems: All systems reviewed & are unremarkable except as noted in HPI and below Constitutional: Constitutional: Reports as per HPI, Reports no additional constitutional complaints and Reports weakness Eyes: Eyes: Reports as per HPI and Reports no additional eye complaints ENT: Reports system reviewed and no additional complaints, except as documented and Reports as per HPI Cardiovascular: Cardiovascular: Reports as per HPI, Reports no additional cardiovascular complaints, Denies chest pain, Denies lightheadedness and Denies palpitations Respiratory: Respiratory: Reports as per HPI, Reports no additional respiratory complaints, Denies dyspnea and Denies dyspnea on exertion Gastrointestinal: Gastrointestinal: Reports as per HPI and Reports no additional gastrointestinal complaints Genitourinary: Genitourinary: Reports as per HPI Musculoskeletal: Musculoskeletal: Reports as per HPI and Reports arthralgias Integumentary/Breasts: Skin/Breast: Reports system reviewed and no additional complaints, except as docu and Reports as per HPI Neurologic: Reports as per HPI and Reports weakness Psychiatric: Psychiatric: Reports as per HPI Endocrine: Endocri
[2021-04-18] MEDS: SODIUM CHLORIDE 0.9% IV 500 ML 250 ML IV CONT (11:11)
[2021-04-18] MEDS: CARBIDOPA/LEVODOPA 25/100 MG TABLET 2 TABLET PO ×2 (11:13→20:17)
[2021-04-18 11:18] LABS: Hematocrit 39.2 % (42.0-52.0); Hemoglobin 12.7 g/dL (14.0-18.0); Mean Corpuscular HGB Conc 32.4 g/dl (32-36); Mean Corpuscular Hemoglobin 30.6 pg (26-34); Mean Corpuscular Volume 94.5 fl (80-100); Mean Platelet Volume 11.1 fl (7.4-10.4); Platelet Count Result 147 k/mm3 (150-375); Red Blood Count 4.15 M/mm3 (4.6-6.20); Red Cell Distribution Width 16.6 % (11.5-14.5); White Blood Count 8.5 K/mm3 (4.5-10.0)
[2021-04-18 11:27] LABS: Anion Gap 6 mmol/L (8-16); Blood Urea Nitrogen 61 mg/dL (9-20); Carbon Dioxide 24 mmol/L (22-30); Chloride 104 mmol/L (98-107); Estimated CRCL calculation 24 ml/min; Estimated Glomerular Filt Rate 25; Glucose 137 mg/dL (65-110); Potassium 4.4 mmol/L (3.4-5.0); Sodium 134 mmol/L (137-145)
[2021-04-18 11:43] LABS: Glucose Point of Care 143 mg/dl (65-105)
--- NOTE | 2021-04-18 14:00 | PM.IMPN ---
Progress Note: A&P Assessment and Plan (1) Orthostatic hypotension: Code(s): I95.1 - Orthostatic hypotension Status: Acute Assessment and Plan: An ongoing issue likely due to autonomic dysfunction from his Parkinson's and diabetes. Was on midodrine in the past however due to significant supine hypertension he was started back on antihypertensives and midodrine was discontinued. Only recently however did he start having significant problems again. Thus far his antihypertensives have been held and tamsulosin has been decreased by half. Significant orthostatic hypotension last evenin/85 --> 68/42. Cardiology has been following and their input is greatly appreciated. Continue to hold hydralazine, isosorbide, and bumetanide. Requiring occasional fluid boluses though would like to avoid due to history of cardiomyopathy. Knee-high Cuauhtemoc hose in place although still orthostatic, try abdominal binder. Consider low-dose midodrine however he already has supine hypertension up to 187/93 today. Dopamine agonists such as ropinirole can cause orthostatic hypotension however I am hesitant to adjust his Parkinson's medications thus I will ask Dr. Ohara to see him in consultation for recommendations. (2) Urinary tract infection: Qualifiers: Hematuria presence: with hematuria Urinary tract infection type: site unspecified Qualified Code(s): N39.0 - Urinary tract infection, site not specified; R31.9 - Hematuria, unspecified Code(s): N39.0 - Urinary tract infection, site not specified Status: Acute Assessment and Plan: Urine culture grew Proteus mirabilis resistant to oral antibiotics. Initially started on cefepime due to ESBL Klebsiella oxytoca on outpatient urine culture taken 04/07/21. Switched to ertapenem on 04/13 following culture results of Proteus mirabilis, day #6/7. (3) Urine retention: Code(s): R33.9 - Retention of urine, unspecified Status: Acute Assessment and Plan: Davidson catheter inserted not long after admission due to urinary retention. Failed a voiding trial on 04/15/2021. Continue Davidson catheter, will need follow-up with Urology as an outpatient. Continue tamsulosin at 0.4 mg qHS; half his usual dose due to ongoing orthostatic hypotension. (4) Fall: Code(s): W19.XXXA - Unspecified fall, initial encounter Status: Acute Assessment and Plan: Patient had a ground level fall on 04/13/2021 while ambulating to the bathroom with SUPPORT ASSISTANT. He felt lightheaded prior to the fall and he fell forward on to his knees, sustaining no injuries. No reported loss of consciousness though fall may very well have been due to orthostatic hypotension. Brain CT showed no acute findings. Continue fall precautions. PT/OT consulted. (5) Hypoglycemia: Code(s): E16.2 - Hypoglycemia, unspecified Status: Acute Assessment and Plan: Glucose trends were reviewed. He seems to have lower numbers in the morning; he had a couple of episodes of hypoglycemia earlier in the visit. Reportedly there was a medication error and he was receiving Lantus twice a day. Numbers are improving now that he is back to once a day. Basal insulin dose has been decreased per recommendations of the saloonkeeper. A1c was 6.0% in 03/15. Continue Lantus 11 units in the morning and sliding scale insulin with meals. Continue monitoring glucose a.c. HS. Hypoglycemic protocol in place. (6) Chronic kidney disease, stage 4 (severe): Code(s): N18.4 - Chronic kidney disease, stage 4 (severe) Status: Acute Assessment and Plan: Status post renal transplant many years ago now with stage IV renal disease. Renal function s
[2021-04-18 16:36] LABS: Glucose Point of Care 161 mg/dl (65-105)
[2021-04-18] MEDS: ERTAPENEM SODIUM 0.5 GM in SODIUM CHLORIDE 0.9% IV 50 ML IVPB (16:36)
[2021-04-18] MEDS: LATANOPROST 0.005% OP SOLN 2.5 ML BTL 1 DROP EACH EYE (20:16)
[2021-04-18] MEDS: ATORVASTATIN 40 MG TABLET PO (20:17)
[2021-04-18] MEDS: TAMSULOSIN HCL 0.4 MG CAPSULE PO (20:17)
[2021-04-18] MEDS: rOPINIRole HCL 0.125 MG TABLET PO (20:17)
[2021-04-18] MEDS: VENLAFAXINE HCL XR 75 MG CAP.ER.24H PO (20:17)
[2021-04-18 20:33] LABS: Glucose Point of Care 210 mg/dl (65-105)
[2021-04-19] VITALS (16 sets, daily range): BP systolic 83–198; BP diastolic 50–90; PULSE 67–93; RESP 18–20; TEMP 36.1–37.1; O2SAT 87–100
[2021-04-19 08:39] LABS: Glucose Point of Care 184 mg/dl (65-105)
--- NOTE | 2021-04-19 08:53 | PCNWS ---
Weekly nutritional screen. Patient is tolerating current diet with adequate intake. No weight loss reported. No nutritional needs at this time.
[2021-04-19] MEDS: predniSONE 5 MG TABLET PO (09:08)
[2021-04-19] MEDS: FERROUS SULFATE 324 MG TABLET PO (09:08)
[2021-04-19] MEDS: CARBIDOPA/LEVODOPA 25/250 MG TABLET 1 TABLET PO ×2 (09:08→16:24)
[2021-04-19] MEDS: VITAMIN B CMPLX/VIT C/FOLIC AC 1 CAPSULE 1 CAP PO (09:08)
[2021-04-19] MEDS: BRIMONIDINE TARTRATE 0.2% OP SOLN 5 ML BTL 1 DROP EACH EYE ×3 (09:08→16:24)
[2021-04-19] MEDS: PYRIDOXINE HCL 50 MG TABLET 100 MG PO (09:08)
[2021-04-19] MEDS: DOCUSATE SODIUM 100 MG CAPSULE PO ×2 (09:08→16:24)
[2021-04-19] MEDS: SACCHAROMYCES BOULARDII 250 MG CAPSULE PO ×2 (09:08→16:24)
[2021-04-19] MEDS: allopurinoL 150 MG TABLET PO (09:09)
[2021-04-19] MEDS: PANTOPRAZOLE 40 MG TABLET PO ×2 (09:09→20:04)
[2021-04-19] MEDS: ASPIRIN 81 MG CHEWABLE TABLET PO (09:09)
[2021-04-19] MEDS: METOPROLOL SUCCINATE EXT REL 25 MG TABCR PO (09:09)
[2021-04-19] MEDS: OXYBUTYNIN CHLORIDE 5 MG TABLET PO (09:09)
[2021-04-19] MEDS: APIXABAN 2.5 MG TABLET PO ×2 (09:09→16:24)
[2021-04-19] MEDS: INSULIN GLARGINE (*BKC) 100 UNITS/ML 11 UNITS SUB-Q (09:11)
--- NOTE | 2021-04-19 10:38 | PM.PNCARD ---
Progress Note: A&P Assessment and Plan (1) Orthostatic hypotension: Code(s): I95.1 - Orthostatic hypotension Status: Acute Assessment and Plan: Check Orthostatics this a.m., severely orthostatic last night. Patient denies symptoms at this time. He otherwise has no other complaints. Explained once again very difficult situation. Will need to hold metoprolol and likely tamsulosin if remains severely orthostatic. Need to ensure consistent oral intake. If with a static once again will give IV fluid normal saline 500 cc over 2 hours as he has a documented negative fluid balance over the past 24-36 hours. Orthostatics not performed. Recommendations to follow. - Discontinue metoprolol, consider discontinuing tamsulosin in any other medication which may contribute to orthostasis as is reasonably safe. Defer tamsulosin management to primary service given need for ongoing Davidson catheter due to failure of voiding trials. - continue compression stockings and abdominal binder. - Very difficult management. Patient verbalized understanding. - Discussed he will very likely require initiation of low-dose Midodrine 2.5mg BID although patient continues to have significant supine hypertension which can significantly exacerbate this problem. discussed potential risks in this regard as well yet relative to essential bed-bound status due to his severe symptomatic orthostatic hypotension also unacceptable. - neurology consultation pending. (2) Status post transcatheter aortic valve replacement (TAVR) using bioprosthesis: Code(s): Z95.3 - Presence of xenogenic heart valve Status: Acute Assessment and Plan: stable, no acute issues. (3) Coronary artery disease: Code(s): I25.10 - Atherosclerotic heart disease of [place] coronary artery without angina pectoris Status: Inactive Assessment and Plan: Asymptomatic. Continue beta-cyndi as BP permits, aspirin, statin (4) HTN (hypertension): Qualifiers: Hypertension type: essential hypertension Qualified Code(s): I10 - Essential (primary) hypertension Code(s): I10 - Essential (primary) hypertension Status: Chronic Assessment and Plan: Supine hypertension to a degree will need to be accepted given his marked drop in blood pressure upon standing. However, still need to monitor the severity in this regard Particularly if additional therapy such as midodrine is deemed necessary. (5) Cardiomyopathy: Code(s): I42.9 - Cardiomyopathy, unspecified Status: Acute Assessment and Plan: Improved post TAVR Off vasodilators therapy due to intolerance secondary to severe orthostatic hypotension. Subjective Date/time seen: Date of service: 04/19/21 10:38 Interval history: Follow-up in this 75-year-old admitted because of mental status changes, some weakness as well as orthostasis and dizziness. He has a history of coronary disease, cardiomyopathy, status post TAVR 04/18/2021: Patient denies chest pain, shortness of breath. States he is eating and drinking reasonably well. No new issues overnight. Denies dizziness or lightheadedness although he is not getting up much. Severely orthostatic last night, not performed this morning. 04/19/21: Patient feels a little lightheaded upon standing. Nursing reports he almost passed out yesterday morning on standing with severe orthostatic hypotension. Given IV normal saline 500 cc with improvement in orthostatic severity 160 time 120s yet this a.m. systolic blood pressure lying 190s standing in 80s systolic and symptomatic. He denies chest pain, shortness of breath or palpitations. No new issues overnight otherwise. States he feels okay. Eating and drinking without difficulty. Review of Systems Review of Systems: All systems reviewed & are unremarkable except as noted in HPI and below Constitutional: Constitutional: Reports as per HPI, Reports no additional cons
--- NOTE | 2021-04-19 11:40 | PM.IMPN ---
Progress Note: A&P Assessment and Plan (1) Orthostatic hypotension: Code(s): I95.1 - Orthostatic hypotension Status: Acute Assessment and Plan: 04/18: An ongoing issue likely due to autonomic dysfunction from his Parkinson's and diabetes. Was on midodrine in the past however due to significant supine hypertension he was started back on antihypertensives and midodrine was discontinued. Only recently however did he start having significant problems again. Thus far his antihypertensives have been held and tamsulosin has been decreased by half. Significant orthostatic hypotension last evenin/85 --> 68/42. 04/19: Pt remains orthostatic. Hold Bp medication continue tamulosin. Pt to start on low dose midodrine as per Dr Luque. Pt to have his ropinirole stopped and started on seroquel as per Dr Gross. And fluid boluses (2) Urinary tract infection: Qualifiers: Hematuria presence: with hematuria Urinary tract infection type: site unspecified Qualified Code(s): N39.0 - Urinary tract infection, site not specified; R31.9 - Hematuria, unspecified Code(s): N39.0 - Urinary tract infection, site not specified Status: Acute Assessment and Plan: Urine culture grew Proteus mirabilis pt is currently on ertapenem for another day. Initially started on cefepime due to ESBL Klebsiella oxytoca on outpatient urine culture taken 04/07/21. Switched to ertapenem on 04/13 following culture results of Proteus mirabilis, day #6/7. (3) Urine retention: Code(s): R33.9 - Retention of urine, unspecified Status: Acute Assessment and Plan: Davidson catheter inserted not long after admission due to urinary retention. Failed a voiding trial on 04/15/2021. Continue Davidson catheter, will need follow-up with Urology as an outpatient. Continue tamsulosin at 0.4 mg qHS; half his usual dose due to ongoing orthostatic hypotension. 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 He felt lightheaded prior to the fall and he fell forward on to his knees, sustaining no injuries. No reported loss of consciousness though fall may very well have been due to orthostatic hypotension. Brain CT showed no acute findings. Continue fall precautions. PT/OT consulted. (5) Hypoglycemia: Code(s): E16.2 - Hypoglycemia, unspecified Status: Acute Assessment and Plan: Continue Lantus 11 units in the morning and sliding scale insulin with meals. Continue monitoring glucose a.c. HS. Hypoglycemic protocol in place. (6) Chronic kidney disease, stage 4 (severe): Code(s): N18.4 - Chronic kidney disease, stage 4 (severe) Status: Acute Assessment and Plan: Status post renal transplant many years ago now with stage IV renal disease. Renal function stable. (7) Parkinson disease: Code(s): G20 - Parkinson's disease Status: Acute Assessment and Plan: Continue carbidopa levodopa and ropinirole. Dr. Ohara consulted regarding ongoing orthostatic hypotension STOP ROPINIROLE (8) Generalized weakness: Code(s): R53.1 - Weakness Status: Inactive Assessment and Plan: Several days ago the patient complained of generalized weakness, right-sided greater than left, with numbness and tingling in the right temporal area associated with a headache. Brain CT and brain MRI showed no acute findings. Pt started on seroquel
[2021-04-19 11:53] LABS: Glucose Point of Care 246 mg/dl (65-105)
[2021-04-19] MEDS: INSULIN ASPART (*BKC) 100 UNITS/ML SUB-Q ×2 (12:01→16:26)
[2021-04-19] MEDS: CARBIDOPA/LEVODOPA 25/100 MG TABLET 2 TABLET PO ×2 (12:02→20:04)
--- NOTE | 2021-04-19 12:39 | WPDNEURCNPN ---
Assessment and Plan Additional Plan or orthostatic hypotension by the history during the hospitalization in addition to by history in the past as well we will try the micro during morning noon and evening to be given at least 15 to 20 minutes before the patient needs to get out of the bed for the morning noon and evening chores and for the breakfast lunch and dinner needs to be given 15 to 20 minutes prior to getting up for that of the blood pressure rises at that time already sitting and dose can be adjusted accordingly I talked to the nurse in detail Consult date: 04/19/21 HPI: Maris Jackman is a 75 year old male has been admitted to the hospital for the complaints of hallucination in addition to the history of UTI. Carries the diagnosis of Parkinson's disease, end-stage renal disease, and has also undergone renal transplant with resultant recurrent chronic renal disease, congestive heart failure, status post TAVR, coronary artery disease patient was mainly brought to the hospital for the cloudy urine the Neurology consultation has been obtained because of the orthostatic hypotension, patient does have ongoing history of atrial fibrillation and being followed by the discharge specialist as well in addition to multiple other medical conditions, patient is already receiving apixaban 2.5 mg b.i.d., along with aspirin 81 mg daily atorvastatin 40 mg HS, also is receiving carbidopa levodopa 25/250 b.i.d. 50/200 extended release b.i.d. as well. During the hospitalization he has been noted to have significant orthostatic hypotension Review of Systems Review of Systems: All systems reviewed & are unremarkable except as noted in HPI and below [facility] Past Medical History Medical History Afib Anemia BPH (benign prostatic hyperplasia) CHF (congestive heart failure), NYHA class I Echo from 12/02/2020 read as the following 1. Complete two-dimensional, color flow and Doppler transthoracic echocardiogram is performed. 2. Left ventricular chamber dimension is normal. 3. Left ventricular systolic function is normal, estimated at 55-60%. 4. There is mildly increased left ventricular wall thickness. 5. The left ventricular diastolic function is grade II diastolic dysfunction. 6. E/e' 16 is elevated. 7. Right ventricular systolic function is reduced based on abnormal TAPSE 1.1 cm. 8. Left atrial chamber dimension is mildly enlarged. 9. The bioprosthetic aortic valve is not well visualized. 10. The mitral valve has mildly calcified leaflets and mildly calcified annulus. 11. No pulmonary hypertension, estimated pulmonary arterial systolic pressure is 13 mmHg. Chronic kidney disease, stage 4 (severe) Coronary artery disease Depression Diabetes Dry mouth Gastroparesis Stage 4 Glaucoma Gout History of CVA (cerebrovascular accident) As per CT read History of AZ (myocardial infarction) with bypass February 2008 History of transcatheter aortic valve replacement (TAVR) 06/01/2020 HLD (hyperlipidemia) HTN (hypertension) Parkinson's disease Peripheral vascular disease Seizures Trauma induced following fall Subdural hematoma From fall on 24 December 2018 Surgical History Surgical History History of biopsy rt shoulder and lt palm History of kidney transplant 2007 History of thoracentesis Hx of CABG 2007, followed by lengthy hospital stay and a second surgery x4 Renal transplant recipient 2008 Status post transcatheter aortic valve replacement (TAVR) using bioprosthesis Family History Family History Father Family history of malignant neoplasm of stomach Mother Diabetes mellitus Grandparent Family history of cardiovascular disease Diabetes mellitus Sibling Crohn's disease Brain aneurysm Social History Social History Social History:
[2021-04-19] MEDS: MIDODRINE HCL 2.5 MG TABLET PO ×2 (13:44→16:24)
[2021-04-19] MEDS: ERTAPENEM SODIUM 0.5 GM in SODIUM CHLORIDE 0.9% IV 50 ML IVPB (16:23)
[2021-04-19 16:36] LABS: Glucose Point of Care 219 mg/dl (65-105)
[2021-04-19] MEDS: VENLAFAXINE HCL XR 75 MG CAP.ER.24H PO (20:04)
[2021-04-19] MEDS: TAMSULOSIN HCL 0.4 MG CAPSULE PO (20:04)
[2021-04-19] MEDS: ATORVASTATIN 40 MG TABLET PO (20:04)
[2021-04-19] MEDS: LATANOPROST 0.005% OP SOLN 2.5 ML BTL 1 DROP EACH EYE (20:05)
[2021-04-19] MEDS: QUEtiapine FUMARATE 12.5 MG TABLET PO (20:07)
[2021-04-19 21:30] LABS: Glucose Point of Care 213 mg/dl (65-105)
[2021-04-19] MEDS: MELATONIN 5 MG TABLET PO (22:29)
[2021-04-20] VITALS (8 sets, daily range): BP systolic 102–174; BP diastolic 65–88; PULSE 65–78; RESP 18–20; TEMP 36.2–37.1; O2SAT 98–100; BMI 10.0
[2021-04-20] MEDS: APIXABAN 2.5 MG TABLET PO ×2 (08:19→16:24)
[2021-04-20] MEDS: BRIMONIDINE TARTRATE 0.2% OP SOLN 5 ML BTL 1 DROP EACH EYE ×3 (08:19→16:24)
[2021-04-20] MEDS: calcitrioL 0.25 MCG CAPSULE 0.5 MCG PO (08:19)
[2021-04-20] MEDS: VITAMIN B CMPLX/VIT C/FOLIC AC 1 CAPSULE 1 CAP PO (08:19)
[2021-04-20] MEDS: PANTOPRAZOLE 40 MG TABLET PO ×2 (08:20→22:32)
[2021-04-20] MEDS: PYRIDOXINE HCL 50 MG TABLET 100 MG PO (08:20)
[2021-04-20] MEDS: allopurinoL 150 MG TABLET PO (08:20)
[2021-04-20] MEDS: DOCUSATE SODIUM 100 MG CAPSULE PO ×2 (08:20→16:24)
[2021-04-20] MEDS: ASPIRIN 81 MG CHEWABLE TABLET PO (08:20)
[2021-04-20] MEDS: SACCHAROMYCES BOULARDII 250 MG CAPSULE PO ×2 (08:20→16:24)
[2021-04-20] MEDS: OXYBUTYNIN CHLORIDE 5 MG TABLET PO (08:20)
[2021-04-20] MEDS: CARBIDOPA/LEVODOPA 25/250 MG TABLET 1 TABLET PO ×2 (08:20→16:24)
[2021-04-20] MEDS: FERROUS SULFATE 324 MG TABLET PO (08:20)
[2021-04-20] MEDS: predniSONE 5 MG TABLET PO (08:20)
[2021-04-20 08:22] LABS: Glucose Point of Care 115 mg/dl (65-105)
--- NOTE | 2021-04-20 08:53 | PM.IMPN ---
Progress Note: A&P Assessment and Plan (1) Orthostatic hypotension: Code(s): I95.1 - Orthostatic hypotension Status: Acute Assessment and Plan: Orthostatic vital 162/85 --> 68/42. Patient had autonomic dysfunction secondary to Parkinson disease and diabetes started on midodrine Hold Bp medication will if blood pressure is 150/90 continue tamulosin. Pt to have his ropinirole stopped and started on seroquel as per Dr Gross. Diuretics are on hold (2) Urinary tract infection: Qualifiers: Hematuria presence: with hematuria Urinary tract infection type: site unspecified Qualified Code(s): N39.0 - Urinary tract infection, site not specified; R31.9 - Hematuria, unspecified Code(s): N39.0 - Urinary tract infection, site not specified Status: Acute Assessment and Plan: Urine culture grew Proteus mirabilis pt is currently on ertapenem for another day. Initially started on cefepime due to ESBL Klebsiella oxytoca on outpatient urine culture taken 04/07/21. Switched to ertapenem on 04/13 following culture results of Proteus mirabilis, last day of antibiotics today and re-evaluate in a.m. (3) Urine retention: Code(s): R33.9 - Retention of urine, unspecified Status: Acute Assessment and Plan: Davidson catheter inserted not long after admission due to urinary retention. Failed a voiding trial on 04/15/2021. Continue Davidson catheter, will need follow-up with Urology as an outpatient. Continue tamsulosin at 0.4 mg qHS; half his usual dose due to ongoing orthostatic hypotension. 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 He felt lightheaded prior to the fall and he fell forward on to his knees, sustaining no injuries. No reported loss of consciousness though fall may very well have been due to orthostatic hypotension. Brain CT showed no acute findings. Continue fall precautions. PT/OT consulted. (5) Hypoglycemia: Code(s): E16.2 - Hypoglycemia, unspecified Status: Acute Assessment and Plan: Continue Lantus 11 units in the morning and sliding scale insulin with meals. Continue monitoring glucose a.c. HS. Hypoglycemic protocol in place. (6) Chronic kidney disease, stage 4 (severe): Code(s): N18.4 - Chronic kidney disease, stage 4 (severe) Status: Acute Assessment and Plan: Status post renal transplant many years ago now with stage IV renal disease. Renal function stable. (7) Parkinson disease: Code(s): G20 - Parkinson's disease Status: Acute Assessment and Plan: Continue carbidopa levodopa and ropinirole. Dr. Ohara consulted regarding ongoing orthostatic hypotension STOP ROPINIROLE (8) Generalized weakness: Code(s): R53.1 - Weakness Status: Inactive Assessment and Plan: Several days ago the patient complained of generalized weakness, right-sided greater than left, with numbness and tingling in the right temporal area associated with a headache. Brain CT and brain MRI showed no acute findings. Continue on seroquel (9) Nausea: Code(s): R11.0 - Nausea Status: Resolved Assessment and Plan: Resolved (10) Acute encephalopathy: Code(s): G93.40 - Encephalopathy, unspecified Status: Resolved Assessment and Plan: A
[2021-04-20] MEDS: INSULIN GLARGINE (*BKC) 100 UNITS/ML 11 UNITS SUB-Q (09:36)
--- NOTE | 2021-04-20 09:53 | PM.PNCARD ---
Progress Note: A&P Additional Plan 75-year-old man with parkinsonism and significant dysautonomia and very problematic orthostasis. All vasodilators diuretics have now been stopped he has been placed on a low dose of midodrine yesterday. Orthostatic vital signs today are still pending. No additional recommendations at this time. Mateusz Erwin MD [facility] Subjective Date/time seen: 04/20/21 09:53 Interval history: Follow-up in this 75-year-old admitted because of mental status changes, some weakness as well as orthostasis and dizziness. He has a history of coronary disease, cardiomyopathy, status post TAVR 04/18/2021: Patient denies chest pain, shortness of breath. States he is eating and drinking reasonably well. No new issues overnight. Denies dizziness or lightheadedness although he is not getting up much. Severely orthostatic last night, not performed this morning. 04/19/21: Patient feels a little lightheaded upon standing. Nursing reports he almost passed out yesterday morning on standing with severe orthostatic hypotension. Given IV normal saline 500 cc with improvement in orthostatic severity 160 time 120s yet this a.m. systolic blood pressure lying 190s standing in 80s systolic and symptomatic. He denies chest pain, shortness of breath or palpitations. No new issues overnight otherwise. States he feels okay. Eating and drinking without difficulty. 04/20/2021: Patient is sleeping flat in bed upon entering the room upon awakening is appears to be comfortable and offers no complaints. Has not yet had orthostatic vital signs taken today. Exam Const: General: comfortable and no acute distress Other: thin elderly gentleman in no distress as stated above does answer questions appropriately but does have somewhat slow mentation HENMT: Mouth: Yes dry mucous membranes Eyes: Sclera: sclerae normal Pupils: Equal, round and reactive pupils present Neck: Neck: supple and no JVD Resp: Effort & Inspection: normal respiratory effort Auscultation: clear to auscultation bilaterally Cardio: Rate: regular rate Rhythm: regular rhythm Other: Very soft systolic murmur at the base does not radiate GI: Auscultation: normal bowel sounds Skin: General skin exam: normal color Neuro: Cranial nerves: Yes Equal, round and reactive pupils present Other: Slow cognition but appropriate Extrem: General: normal to inspection Other: No peripheral edema Compression stockings in place Psych: Appearance: grossly normal Objective Data Vital Signs Vital Signs: Vital Signs - 24 hr 04/19/21 10:35 04/19/21 13:42 04/19/21 13:45 Temperature 36.4 C L Pulse Rate 67 Respiratory Rate 20 Blood Pressure 184/88 H 190/86 H 146/54 H Pulse Oximetry 100 04/19/21 14:00 04/19/21 19:37 04/19/21 19:44 Temperature 36.6 C 37.1 C 37.1 C Pulse Rate 79 73 85 Respiratory Rate 18 20 20 Blood Pressure 146/54 H 164/76 H 150/83 H Pulse Oximetry 99 100 89 L 04/19/21 19:45 04/19/21 19:54 04/19/21 19:55 Temperature 37.1 C 37.1 C 37.1 C Pulse Rate 73 73 93 Respiratory Rate 20 20 20 Blood Pressure 164/76 H 164/76 H 113/51 L Pulse Oximetry 100 100 87 L 04/20/21 00:02 04/20/21 04:14 Temperature 36.5 C 36.2 C L Pulse Rate 78 65 Respiratory Rate 18 18 Blood Pressure 172/88 H 174/86 H Pulse Oximetry 100 100 Intake/Output Intake/Output: Intake & Output 04/17/21 04/18/21 04/19/21 04/20/21 23:59 23:59 23:59 23:59 Intake Total 1200 990 640 120 Output Total 2800 1900 1500 900 Balance -1600 -910 -860 -780 Meds/Results Medications: Active Medications Generic Name Dose Route Start Last Admin Trade Name Darcy PRN Reason Stop Dose Admin Acetaminophen 650 mg 04/12/21 07:09 Acetaminophen 325 Mg Tablet PO Q6H PRN Mild Pain (1-3) Or Fever Allopurinol 150 mg 04/12/21 09:00 04/20/21 08:20 Allopurinol 150 Mg Tablet PO 150 mg DAILY MARICHUY Administration Apixaban 2.5 mg 04/12/21 09:00
[2021-04-20] MEDS: MIDODRINE HCL 2.5 MG TABLET PO (10:32)
[2021-04-20] MEDS: CARBIDOPA/LEVODOPA 25/100 MG TABLET 2 TABLET PO ×2 (10:32→22:31)
[2021-04-20 10:45] LABS: Alanine Aminotransferase 6 U/L (4-50); Albumin Level 3.1 g/dL (3.5-5.1); Alkaline Phosphatase 69 U/L (38-126); Anion Gap 6 mmol/L (8-16); Aspartate Amino Transferase 24 U/L (17-59); Bilirubin,Total 0.7 mg/dL (0.2-1.3); Blood Urea Nitrogen 59 mg/dL (9-20); Carbon Dioxide 22 mmol/L (22-30); Chloride 106 mmol/L (98-107); Estimated CRCL calculation 26 ml/min; Estimated Glomerular Filt Rate 28; Glucose 138 mg/dL (65-110); Potassium 4.5 mmol/L (3.4-5.0); Sodium 134 mmol/L (137-145)
[2021-04-20 10:52] LABS: Basophils Percent Auto 0.4 % (0.2-1.2); Eosinophils Absolute Auto 0.2 K/mm3 (0-0.3); Eosinophils Percent Auto 1.4 % (0-4.4); Hematocrit 35.3 % (42.0-52.0); Hemoglobin 11.9 g/dL (14.0-18.0); Immature Granulocyte Absolute 0.03 K/mm3 (0.00-0.031); Immature Granulocyte Percent A 0.3 % (0-0.5); Immature Platelet Fraction Pct 3.8 % (0.9-11.2); Lymphocytes Absolute Auto 2.22 K/mm3 (0.9-3.2); Lymphocytes Percent Auto 21.1 % (18.3-44.2); Mean Corpuscular HGB Conc 33.7 g/dl (32-36); Mean Corpuscular Hemoglobin 30.9 pg (26-34); Mean Corpuscular Volume 91.7 fl (80-100); Mean Platelet Volume 10.7 fl (7.4-10.4); Monocytes Absolute Auto 0.9 K/mm3 (0.1-0.6); Monocytes Percent Auto 8.8 % (2.6-8.5); Neutrophils Absolute Auto 7.2 K/mm3 (1.3-6.7); Platelet Count Result 125 k/mm3 (150-375); Red Blood Count 3.85 M/mm3 (4.6-6.20); Red Cell Distribution Width 16.8 % (11.5-14.5); White Blood Count 10.5 K/mm3 (4.5-10.0)
[2021-04-20 11:31] LABS: Glucose Point of Care 139 mg/dl (65-105)
--- NOTE | 2021-04-20 12:07 | WPDNEUROPN ---
Progress Note: A&P Additional Plan change the dosage of midodrine and no Seroquel this evening Time Spent With Patient Time with patient: less than 15 minutes Subjective Date/time seen: 04/20/21 12:07 parkinsonian with orthostatic severe hypotension in addition to intermittent combativeness, tried the Seroquel 12.5 mg yesterday which made him today very drowsy again a folded today, gave 2.5 mg of micro drink 3 times for getting out of the bed did and day before but still systolic blood pressure was up to 100 we will try 5 mg twice a morning and evening and no Seroquel today rest of the management will be as such Review of Systems Review of Systems: All systems reviewed & are unremarkable except as noted in HPI and below Exam Const: General: no acute distress Nutritional Appearance: average body habitus Orientation/consciousness: oriented to person Eyes: General: appearance normal, both eyes and all related structures Neck: Neck: full ROM Resp: Effort & Inspection: normal respiratory effort Cardio: Rate: regular rate Rhythm: regular rhythm Neuro: General: oriented to person Cranial nerves: Yes CN's II-XII intact bilaterally Cognition (Neuro): normal cognition Gait exam (Neuro): Unable to assess gait Motor exam (neuro): Pronator motor function not present and No tremor noted Psych: Appearance: disheveled Affect: Labile affect present Judgement: Limited judgement present (Psych) Objective Data Vital Signs Vital Signs: Vital Signs - 24 hr 04/19/21 13:42 04/19/21 13:45 04/19/21 14:00 Temperature 36.6 C Pulse Rate 79 Respiratory Rate 18 Blood Pressure 190/86 H 146/54 H 146/54 H Pulse Oximetry 99 04/19/21 19:37 04/19/21 19:44 04/19/21 19:45 Temperature 37.1 C 37.1 C 37.1 C Pulse Rate 73 85 73 Respiratory Rate 20 20 20 Blood Pressure 164/76 H 150/83 H 164/76 H Pulse Oximetry 100 89 L 100 04/19/21 19:54 04/19/21 19:55 04/20/21 00:02 Temperature 37.1 C 37.1 C 36.5 C Pulse Rate 73 93 78 Respiratory Rate 20 20 18 Blood Pressure 164/76 H 113/51 L 172/88 H Pulse Oximetry 100 87 L 100 04/20/21 04:14 04/20/21 10:30 Temperature 36.2 C L Pulse Rate 65 Respiratory Rate 18 Blood Pressure 174/86 H 168/82 H Pulse Oximetry 100 Intake/Output Intake/Output: Intake & Output 04/17/21 04/18/21 04/19/21 04/20/21 23:59 23:59 23:59 23:59 Intake Total 1200 990 640 120 Output Total 2800 1900 1500 900 Balance -1600 -910 -860 -780 Meds/Results Medications: Active Medications Generic Name Dose Route Start Last Admin Trade Name Freq PRN Reason Stop Dose Admin Acetaminophen 650 mg 04/12/21 07:09 Acetaminophen 325 Mg Tablet PO Q6H PRN Mild Pain (1-3) Or Fever Allopurinol 150 mg 04/12/21 09:00 04/20/21 08:20 Allopurinol 150 Mg Tablet PO 150 mg DAILY MARICHUY Administration Apixaban 2.5 mg 04/12/21 09:00 04/20/21 08:19 Apixaban 2.5 Mg Tablet PO 2.5 mg BID MARICHUY Administration Artificial Tears 1 drop 04/12/21 07:10 Artificial Tears Ophth Soln 15 Ml Bottle EACH EYE TID PRN Dry Eye(S) Aspirin 81 mg 04/12/21 08:00 04/20/21 08:20 Aspirin 81 Mg Chewable Tablet PO 81 mg DAILY@0800 MARICHUY Administration Atorvastatin Calcium 40 mg 04/12/21 21:00 04/19/21 20:04 Atorvastatin 40 Mg Tablet PO 40 mg HS MARICHUY Administration Bisacodyl 10 mg 04/13/21 08:03 04/13/21 09:01 Bisacodyl 10 Mg Suppository RECTAL 10 mg QAM PRN Administration Constipation Brimonidine Tartrate 1 drop 04/12/21 09:00 04/20/21 08:19 Brimonidine Tartrate 0.2% Op Soln 5 Ml Btl EACH EYE 1 drop TID MARICHUY Administration Bumetanide 1 mg 04/12/21 09:00 04/14/21 08:17 Bumetanide 1 Mg Tablet PO 1 mg DAILY MARICHUY Administration Calcitriol 0.5 mcg 04/13/21 09:00 04/20/21 08:19 Calcitriol 0.25 Mcg Capsule PO 0.5 mcg MoWeFr@0900 MARICHUY Administration Carbidopa/Levodopa 1 tablet 04/12/21 09:00 04/20/21 08:20 Carbidopa/Levodopa 25/
[2021-04-20] MEDS: MIDODRINE HCL 2.5 MG TABLET 5 MG PO (16:24)
[2021-04-20] MEDS: ERTAPENEM SODIUM 0.5 GM in SODIUM CHLORIDE 0.9% IV 50 ML IVPB (16:25)
[2021-04-20 16:40] LABS: Glucose Point of Care 152 mg/dl (65-105)
[2021-04-20] MEDS: TAMSULOSIN HCL 0.4 MG CAPSULE PO (22:31)
[2021-04-20] MEDS: VENLAFAXINE HCL XR 75 MG CAP.ER.24H PO (22:32)
[2021-04-20] MEDS: ATORVASTATIN 40 MG TABLET PO (22:32)
[2021-04-20] MEDS: LATANOPROST 0.005% OP SOLN 2.5 ML BTL 1 DROP EACH EYE (23:21)
[2021-04-21] VITALS (12 sets, daily range): BP systolic 96–190; BP diastolic 54–86; PULSE 73–92; RESP 14–21; TEMP 36.4–37; O2SAT 99–100
[2021-04-21 00:50] LABS: Glucose Point of Care 149 mg/dl (65-105)
[2021-04-21 06:49] LABS: Alanine Aminotransferase 6 U/L (4-50); Albumin Level 3.2 g/dL (3.5-5.1); Alkaline Phosphatase 81 U/L (38-126); Anion Gap 8 mmol/L (8-16); Aspartate Amino Transferase 26 U/L (17-59); Bilirubin,Total 0.6 mg/dL (0.2-1.3); Blood Urea Nitrogen 63 mg/dL (9-20); Calcium 9.4 mg/dL (8.4-10.2); Carbon Dioxide 21 mmol/L (22-30); Chloride 105 mmol/L (98-107); Estimated CRCL calculation 24 ml/min; Estimated Glomerular Filt Rate 25; Glucose 126 mg/dL (65-110); Potassium 4.7 mmol/L (3.4-5.0); Sodium 134 mmol/L (137-145)
[2021-04-21 06:52] LABS: Basophils Absolute Auto 0.1 K/mm3 (0.0-0.1); Basophils Percent Auto 0.6 % (0.2-1.2); Eosinophils Absolute Auto 0.2 K/mm3 (0-0.3); Eosinophils Percent Auto 1.3 % (0-4.4); Hematocrit 39.3 % (42.0-52.0); Hemoglobin 13.1 g/dL (14.0-18.0); Immature Granulocyte Absolute 0.05 K/mm3 (0.00-0.031); Immature Granulocyte Percent A 0.4 % (0-0.5); Lymphocytes Absolute Auto 2.52 K/mm3 (0.9-3.2); Lymphocytes Percent Auto 21.6 % (18.3-44.2); Mean Corpuscular HGB Conc 33.3 g/dl (32-36); Mean Corpuscular Hemoglobin 31.2 pg (26-34); Mean Corpuscular Volume 93.6 fl (80-100); Mean Platelet Volume 12.1 fl (7.4-10.4); Monocytes Absolute Auto 0.9 K/mm3 (0.1-0.6); Monocytes Percent Auto 7.3 % (2.6-8.5); Neutrophils Percent Auto 68.8 % (45.5-73.1); Platelet Count Result 136 k/mm3 (150-375); Red Cell Distribution Width 17.2 % (11.5-14.5); White Blood Count 11.7 K/mm3 (4.5-10.0)
[2021-04-21 08:02] LABS: Glucose Point of Care 119 mg/dl (65-105)
[2021-04-21] MEDS: ASPIRIN 81 MG CHEWABLE TABLET PO (08:53)
[2021-04-21] MEDS: PYRIDOXINE HCL 50 MG TABLET 100 MG PO (08:53)
[2021-04-21] MEDS: PANTOPRAZOLE 40 MG TABLET PO ×2 (08:54→20:46)
[2021-04-21] MEDS: VITAMIN B CMPLX/VIT C/FOLIC AC 1 CAPSULE 1 CAP PO (08:54)
[2021-04-21] MEDS: FERROUS SULFATE 324 MG TABLET PO (08:54)
[2021-04-21] MEDS: predniSONE 5 MG TABLET PO (08:54)
[2021-04-21] MEDS: SACCHAROMYCES BOULARDII 250 MG CAPSULE PO ×2 (08:54→16:23)
[2021-04-21] MEDS: allopurinoL 150 MG TABLET PO (08:54)
[2021-04-21] MEDS: APIXABAN 2.5 MG TABLET PO ×2 (08:54→16:23)
[2021-04-21] MEDS: BRIMONIDINE TARTRATE 0.2% OP SOLN 5 ML BTL 1 DROP EACH EYE ×3 (08:55→16:24)
[2021-04-21] MEDS: OXYBUTYNIN CHLORIDE 5 MG TABLET PO (08:55)
[2021-04-21] MEDS: CARBIDOPA/LEVODOPA 25/250 MG TABLET 1 TABLET PO ×2 (08:55→16:23)
[2021-04-21] MEDS: MIDODRINE HCL 2.5 MG TABLET 5 MG PO ×2 (09:41→16:24)
--- NOTE | 2021-04-21 09:41 | PM.IMPN ---
Progress Note: A&P Assessment and Plan (1) Orthostatic hypotension: Code(s): I95.1 - Orthostatic hypotension Status: Acute Assessment and Plan: Orthostatic vital 162/85 --> 68/42. Patient had autonomic dysfunction secondary to Parkinson disease and diabetes started on midodrine Hold Bp medication will if blood pressure is 150/90 continue tamulosin. Pt to have his ropinirole stopped and started on seroquel as per Dr Gross. Diuretics are on hold Patient blood pressure was dropped by 50 points yesterday patient was symptomatic (2) Urinary tract infection: Qualifiers: Hematuria presence: with hematuria Urinary tract infection type: site unspecified Qualified Code(s): N39.0 - Urinary tract infection, site not specified; R31.9 - Hematuria, unspecified Code(s): N39.0 - Urinary tract infection, site not specified Status: Acute Assessment and Plan: Urine culture grew Proteus mirabilis pt is currently on ertapenem for another day. Initially started on cefepime due to ESBL Klebsiella oxytoca on outpatient urine culture taken 04/07/21. Switched to ertapenem on 04/13 following culture results of Proteus mirabilis, completed course of antibiotics monitor (3) Urine retention: Code(s): R33.9 - Retention of urine, unspecified Status: Acute Assessment and Plan: Davidson catheter inserted not long after admission due to urinary retention. Failed a voiding trial on 04/15/2021. Continue Davidson catheter, will need follow-up with Urology as an outpatient. Continue tamsulosin at 0.4 mg qHS; half his usual dose due to ongoing orthostatic hypotension. 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 He felt lightheaded prior to the fall and he fell forward on to his knees, sustaining no injuries. No reported loss of consciousness though fall may very well have been due to orthostatic hypotension. Brain CT showed no acute findings. Continue fall precautions. PT/OT consulted. (5) Hypoglycemia: Code(s): E16.2 - Hypoglycemia, unspecified Status: Acute Assessment and Plan: Continue Lantus 11 units in the morning and sliding scale insulin with meals. Continue monitoring glucose a.c. HS. Hypoglycemic protocol in place. (6) Chronic kidney disease, stage 4 (severe): Code(s): N18.4 - Chronic kidney disease, stage 4 (severe) Status: Acute Assessment and Plan: Status post renal transplant many years ago now with stage IV renal disease. Renal function stable. (7) Parkinson disease: Code(s): G20 - Parkinson's disease Status: Acute Assessment and Plan: Continue carbidopa levodopa and ropinirole. Dr. Ohara consulted regarding ongoing orthostatic hypotension STOP ROPINIROLE (8) Generalized weakness: Code(s): R53.1 - Weakness Status: Inactive Assessment and Plan: Several days ago the patient complained of generalized weakness, right-sided greater than left, with numbness and tingling in the right temporal area associated with a headache. Brain CT and brain MRI showed no acute findings. Continue on seroquel (9) Nausea: Code(s): R11.0 - Nausea Status: Resolved Assessment and Plan: Resolved (10) Acute encephalopathy: Code(s): G93.40 - Encephalopathy
[2021-04-21] MEDS: INSULIN GLARGINE (*BKC) 100 UNITS/ML 11 UNITS SUB-Q (09:42)
--- NOTE | 2021-04-21 11:32 | PM.PNCARD ---
Progress Note: A&P Assessment and Plan (1) Orthostatic hypotension: Code(s): I95.1 - Orthostatic hypotension <JUAN Lincoln - Last Filed: 04/21/21 16:32> Status: Acute <JUAN Lincoln - Last Filed: 04/21/21 16:32> Assessment and Plan: Still experiencing significant orthostasis despite discontinuation of all vasodilators and coreg, however seems to have had a symptomatic improvement as he is not reporting dizziness, presyncope, or syncope with changes in position. Midodrine has been advanced to 5mg per neurology. Will not made any adjustments to his current regimen today. <JUAN Lincoln - Last Filed: 04/21/21 16:32> (2) Status post transcatheter aortic valve replacement (TAVR) using bioprosthesis: Code(s): Z95.3 - Presence of xenogenic heart valve <JUAN Lincoln - Last Filed: 04/21/21 16:32> Status: Acute <JUAN Lincoln - Last Filed: 04/21/21 16:32> Assessment and Plan: stable, no acute issues. <JUAN Lincoln - Last Filed: 04/21/21 16:32> (3) HTN (hypertension): Qualifiers: Hypertension type: essential hypertension Qualified Code(s): I10 - Essential (primary) hypertension <JUAN Lincoln - Last Filed: 04/21/21 16:32> Code(s): I10 - Essential (primary) hypertension <JUAN Lincoln - Last Filed: 04/21/21 16:32> Status: Chronic <JUAN Lincoln - Last Filed: 04/21/21 16:32> Assessment and Plan: Supine hypertension to a degree will need to be accepted given his marked drop in blood pressure upon standing. However, still need to monitor the severity in this regard Particularly if additional therapy such as midodrine is deemed necessary. <JAUN Lincoln - Last Filed: 04/21/21 16:32> (4) Cardiomyopathy: Code(s): I42.9 - Cardiomyopathy, unspecified <JUAN Lincoln - Last Filed: 04/21/21 16:32> Status: Acute <JUAN Lincoln - Last Filed: 04/21/21 16:32> Assessment and Plan: Improved post TAVR Off vasodilators therapy due to intolerance secondary to severe orthostatic hypotension. <JUAN Lincoln - Last Filed: 04/21/21 16:32> Additional Plan Attending addendum: I agree with the documentation and plan of care as outlined above. <Gabriel Cabral MD - Last Filed: 04/21/21 16:34> Subjective Date/time seen: 04/21/21 11:32 <JUAN Lincoln - Last Filed: 04/21/21 16:32> Interval history: Follow-up in this 75-year-old admitted because of mental status changes, some weakness as well as orthostasis and dizziness. He has a history of coronary disease, cardiomyopathy, status post TAVR 04/18/2021: Patient denies chest pain, shortness of breath. States he is eating and drinking reasonably well. No new issues overnight. Denies dizziness or lightheadedness although he is not getting up much. Severely orthostatic last night, not performed this morning. 04/19/21: Patient feels a little lightheaded upon standing. Nursing reports he almost passed out yesterday morning on standing with severe orthostatic hypotension. Given IV normal saline 500 cc with improvement in orthostatic severity 160 time 120s yet this a.m. systolic blood pressure lying 190s standing in 80s systolic and symptomatic. He denies chest pain, shortness of breath or palpitations. No new issues overnight otherwise. States he feels okay. Eating and drinking without difficulty. 04/20/2021: Patient is sleeping flat in bed upon entering the room upon awakening is appears to be comfortable and offers no complaints. Has not yet had orthostatic vital signs taken today. 04/21/2021:Sitting up in the chair comfortably. States he did not have any dizziness or presyncope when he stood to get to the chair. No complaints aside from feeling cold. <RAFA LincolnC - Last Filed: 04/21/21 16:32> Review of
--- NOTE | 2021-04-21 11:45 | WPDNEUROPN ---
Progress Note: A&P Additional Plan 24 hours more observation on 5mgx2 per 24 hours of midodrine Time Spent With Patient Time with patient: less than 15 minutes Subjective Date/time seen: 04/21/21 11:45 This morning patient is awake alert female reclined in the care as per the report from the nurse his blood pressure went up to 100 systolic last night he took midodrine 5 mg, give the 5 mg twice only 15 minutes before the reason to get up from the bed sodo not increase the blood pressure too high and also he is obviously sitting at that time in the chair he is awake alert follows instructions very well otherwise neuro examination is unchanged all other dairy consultant notes reviewed Review of Systems Review of Systems: All systems reviewed & are unremarkable except as noted in HPI and below Exam Const: General: comfortable, no acute distress and alert Nutritional Appearance: average body habitus Orientation/consciousness: oriented to person and oriented to place HENMT: Head: normocephalic Eyes: General: appearance normal, both eyes and all related structures Resp: Effort & Inspection: normal respiratory effort and able to speak in complete sentences Cardio: Rate: regular rate Neuro: General: oriented to person, oriented to place and oriented to time Cranial nerves: Yes CN's II-XII intact bilaterally Cognition (Neuro): normal cognition Speech: normal speech Gait exam (Neuro): Unable to assess gait Psych: Appearance: grossly normal Objective Data Vital Signs Vital Signs: Vital Signs - 24 hr 04/20/21 14:00 04/20/21 18:00 04/20/21 22:00 Temperature 36.4 C 36.4 C 37.1 C Pulse Rate 68 66 76 Respiratory Rate 18 18 20 Blood Pressure 164/80 H 158/76 H 146/82 H Pulse Oximetry 100 100 99 04/21/21 02:00 04/21/21 02:05 04/21/21 06:00 Temperature 36.7 C 36.5 C 36.6 C Pulse Rate 73 75 92 Respiratory Rate 21 H 21 H 21 H Blood Pressure 180/83 H 174/85 H 175/84 H Pulse Oximetry 100 100 100 04/21/21 08:00 04/21/21 10:00 04/21/21 11:33 Temperature 36.4 C Pulse Rate 90 91 88 Respiratory Rate 16 Blood Pressure 186/84 H 130/69 96/54 L Pulse Oximetry 100 Intake/Output Intake/Output: Intake & Output 04/18/21 04/19/21 04/20/21 04/21/21 23:59 23:59 23:59 23:59 Intake Total 533 833 7426 540 Output Total 1900 1500 1500 650 Balance -910 -860 -260 -110 Meds/Results Medications: Active Medications Generic Name Dose Route Start Last Admin Trade Name Darcy PRN Reason Stop Dose Admin Acetaminophen 650 mg 04/12/21 07:09 Acetaminophen 325 Mg Tablet PO Q6H PRN Mild Pain (1-3) Or Fever Allopurinol 150 mg 04/12/21 09:00 04/21/21 08:54 Allopurinol 150 Mg Tablet PO 150 mg DAILY MARICHUY Administration Apixaban 2.5 mg 04/12/21 09:00 04/21/21 08:54 Apixaban 2.5 Mg Tablet PO 2.5 mg BID MARICHUY Administration Artificial Tears 1 drop 04/12/21 07:10 Artificial Tears Ophth Soln 15 Ml Bottle EACH EYE TID PRN Dry Eye(S) Aspirin 81 mg 04/12/21 08:00 04/21/21 08:53 Aspirin 81 Mg Chewable Tablet PO 81 mg DAILY@0800 MARICHUY Administration Atorvastatin Calcium 40 mg 04/12/21 21:00 04/20/21 22:32 Atorvastatin 40 Mg Tablet PO 40 mg HS MARICHUY Administration Bisacodyl 10 mg 04/13/21 08:03 04/13/21 09:01 Bisacodyl 10 Mg Suppository RECTAL 10 mg QAM PRN Administration Constipation Brimonidine Tartrate 1 drop 04/12/21 09:00 04/21/21 08:55 Brimonidine Tartrate 0.2% Op Soln 5 Ml Btl EACH EYE 1 drop TID MARICHUY Administration Bumetanide 1 mg 04/12/21 09:00 04/14/21 08:17 Bumetanide 1 Mg Tablet PO 1 mg DAILY MARICHUY Administration Calcitriol 0.5 mcg 04/13/21 09:00 04/20/21 08:19 Calcitriol 0.25 Mcg Capsule PO 0.5 mcg MoWeFr@0900 MARICHUY Administration Carbidopa/Levodopa 1 tablet 04/12/21 09:00 04/21/21 08:55 Carbidopa/Levodopa 25/250 Mg Tablet PO 1 tablet 0900,1700 MARICHUY Administration Carbidopa/Levodopa 2 tablet 04/12/21 1
[2021-04-21 11:46] LABS: Glucose Point of Care 169 mg/dl (65-105)
[2021-04-21] MEDS: CARBIDOPA/LEVODOPA 25/100 MG TABLET 2 TABLET PO ×2 (12:32→20:46)
[2021-04-21] MEDS: ALBUMIN HUMAN 25% 25 GM/100 ML 100 ML IVPB (12:32)
--- NOTE | 2021-04-21 15:21 | PC.NURSE ---
On 04/21/21, the student, [Frannie Maradiaga], provided care and completed [facility] documentation on this patient. I have reviewed the student's documentation and agree with the findings.
[2021-04-21] MEDS: ERTAPENEM SODIUM 0.5 GM in SODIUM CHLORIDE 0.9% IV 50 ML IVPB (15:44)
[2021-04-21] MEDS: DOCUSATE SODIUM 100 MG CAPSULE PO (16:23)
[2021-04-21 16:41] LABS: Glucose Point of Care 188 mg/dl (65-105)
[2021-04-21] MEDS: ATORVASTATIN 40 MG TABLET PO (20:45)
[2021-04-21] MEDS: LATANOPROST 0.005% OP SOLN 2.5 ML BTL 1 DROP EACH EYE (20:46)
[2021-04-21] MEDS: TAMSULOSIN HCL 0.4 MG CAPSULE PO (20:46)
[2021-04-21] MEDS: QUEtiapine FUMARATE 12.5 MG TABLET PO (20:46)
[2021-04-21] MEDS: VENLAFAXINE HCL XR 75 MG CAP.ER.24H PO (20:46)
[2021-04-21 21:09] LABS: Glucose Point of Care 172 mg/dl (65-105)
[2021-04-22] VITALS (8 sets, daily range): BP systolic 156–198; BP diastolic 77–89; PULSE 76–98; RESP 14–21; TEMP 30.9–36.9; O2SAT 96–100
[2021-04-22] MEDS: ACETAMINOPHEN 325 MG TABLET 650 MG PO (01:34)
[2021-04-22 06:13] LABS: Basophils Absolute Auto 0.1 K/mm3 (0.0-0.1); Basophils Percent Auto 0.4 % (0.2-1.2); Eosinophils Absolute Auto 0.1 K/mm3 (0-0.3); Eosinophils Percent Auto 0.4 % (0-4.4); Hematocrit 38.2 % (42.0-52.0); Hemoglobin 12.7 g/dL (14.0-18.0); Immature Granulocyte Absolute 0.05 K/mm3 (0.00-0.031); Immature Granulocyte Percent A 0.4 % (0-0.5); Immature Platelet Fraction Pct 4.3 % (0.9-11.2); Lymphocytes Percent Auto 19.9 % (18.3-44.2); Mean Corpuscular HGB Conc 33.2 g/dl (32-36); Mean Corpuscular Hemoglobin 31.1 pg (26-34); Mean Corpuscular Volume 93.4 fl (80-100); Mean Platelet Volume 11.3 fl (7.4-10.4); Monocytes Absolute Auto 1.1 K/mm3 (0.1-0.6); Monocytes Percent Auto 7.7 % (2.6-8.5); Neutrophils Absolute Auto 9.7 K/mm3 (1.3-6.7); Neutrophils Percent Auto 71.2 % (45.5-73.1); Platelet Count Result 126 k/mm3 (150-375); Red Blood Count 4.09 M/mm3 (4.6-6.20); Red Cell Distribution Width 16.9 % (11.5-14.5); White Blood Count 13.6 K/mm3 (4.5-10.0)
[2021-04-22 06:27] LABS: Alanine Aminotransferase 6 U/L (4-50); Albumin Level 3.2 g/dL (3.5-5.1); Alkaline Phosphatase 75 U/L (38-126); Anion Gap 11 mmol/L (8-16); Aspartate Amino Transferase 23 U/L (17-59); Bilirubin,Total 0.8 mg/dL (0.2-1.3); Blood Urea Nitrogen 62 mg/dL (9-20); Calcium 9.4 mg/dL (8.4-10.2); Carbon Dioxide 20 mmol/L (22-30); Chloride 104 mmol/L (98-107); Estimated CRCL calculation 25 ml/min; Estimated Glomerular Filt Rate 27; Glucose 136 mg/dL (65-110); Potassium 4.5 mmol/L (3.4-5.0); Sodium 135 mmol/L (137-145)
--- NOTE | 2021-04-22 06:28 | PC.NURSE ---
Pt complained of pain in suprapubic area in the checkroom chief. He had several bowel movements throughout the early a.m. and was unsure if pain was bowel or bladder pain. Pt's pain improved with BMs, cerna catheter was assessed for patency, bladder scan was completed with a result of 0.
[2021-04-22 07:47] LABS: Glucose Point of Care 129 mg/dl (65-105)
[2021-04-22] MEDS: CARBIDOPA/LEVODOPA 25/250 MG TABLET 1 TABLET PO ×2 (09:08→18:39)
[2021-04-22] MEDS: PYRIDOXINE HCL 50 MG TABLET 100 MG PO (09:08)
[2021-04-22] MEDS: SACCHAROMYCES BOULARDII 250 MG CAPSULE PO ×2 (09:08→18:32)
[2021-04-22] MEDS: predniSONE 5 MG TABLET PO (09:08)
[2021-04-22] MEDS: OXYBUTYNIN CHLORIDE 5 MG TABLET PO (09:08)
[2021-04-22] MEDS: PANTOPRAZOLE 40 MG TABLET PO ×2 (09:08→20:56)
[2021-04-22] MEDS: MIDODRINE HCL 2.5 MG TABLET 5 MG PO ×2 (09:08→18:32)
[2021-04-22] MEDS: INSULIN GLARGINE (*BKC) 100 UNITS/ML 11 UNITS SUB-Q (09:09)
[2021-04-22] MEDS: APIXABAN 2.5 MG TABLET PO ×2 (09:09→18:38)
[2021-04-22] MEDS: FERROUS SULFATE 324 MG TABLET PO (09:09)
[2021-04-22] MEDS: calcitrioL 0.25 MCG CAPSULE 0.5 MCG PO (09:09)
[2021-04-22] MEDS: ASPIRIN 81 MG CHEWABLE TABLET PO (09:09)
[2021-04-22] MEDS: allopurinoL 150 MG TABLET PO (09:09)
[2021-04-22] MEDS: BRIMONIDINE TARTRATE 0.2% OP SOLN 5 ML BTL 1 DROP EACH EYE ×3 (09:09→18:38)
[2021-04-22] MEDS: DOCUSATE SODIUM 100 MG CAPSULE PO ×2 (09:09→18:39)
[2021-04-22] MEDS: VITAMIN B CMPLX/VIT C/FOLIC AC 1 CAPSULE 1 CAP PO (09:11)
--- NOTE | 2021-04-22 10:05 | PM.IMPN ---
Progress Note: A&P Assessment and Plan (1) Orthostatic hypotension: Code(s): I95.1 - Orthostatic hypotension Status: Acute Assessment and Plan: Orthostatic vital 162/85 --> 68/42. Patient had autonomic dysfunction secondary to Parkinson disease and diabetes started on midodrine Hold Bp medication will if blood pressure is 150/90 continue tamulosin. Pt to have his ropinirole stopped and started on seroquel as per Dr Gross. Diuretics are on hold Patient blood pressure was dropped by 50 points Follow orthostatic IV hydration as needed (2) Urinary tract infection: Qualifiers: Hematuria presence: with hematuria Urinary tract infection type: site unspecified Qualified Code(s): N39.0 - Urinary tract infection, site not specified; R31.9 - Hematuria, unspecified Code(s): N39.0 - Urinary tract infection, site not specified Status: Acute Assessment and Plan: Urine culture grew Proteus mirabilis pt is currently on ertapenem for another day. Initially started on cefepime due to ESBL Klebsiella oxytoca on outpatient urine culture taken 04/07/21. Switched to ertapenem on 04/13 following culture results of Proteus mirabilis, restarted ertapenem Ordered CT scan of the chest abdomen and pelvis Ordered blood culture and urine culture Today is day 10 of ertapenem re-evaluate may need ID evaluation if no improvement or recurrence of of infection (3) Urine retention: Code(s): R33.9 - Retention of urine, unspecified Status: Acute Assessment and Plan: Davidson catheter inserted not long after admission due to urinary retention. Failed a voiding trial on 04/15/2021. Continue Davidson catheter, will need follow-up with Urology as an outpatient. Continue tamsulosin at 0.4 mg qHS; half his usual dose due to ongoing orthostatic hypotension. 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 He felt lightheaded prior to the fall and he fell forward on to his knees, sustaining no injuries. No reported loss of consciousness though fall may very well have been due to orthostatic hypotension. Brain CT showed no acute findings. Continue fall precautions. PT/OT consulted. (5) Hypoglycemia: Code(s): E16.2 - Hypoglycemia, unspecified Status: Acute Assessment and Plan: Continue Lantus 11 units in the morning and sliding scale insulin with meals. Continue monitoring glucose a.c. HS. Hypoglycemic protocol in place. (6) Chronic kidney disease, stage 4 (severe): Code(s): N18.4 - Chronic kidney disease, stage 4 (severe) Status: Acute Assessment and Plan: Status post renal transplant many years ago now with stage IV renal disease. Renal function stable. (7) Parkinson disease: Code(s): G20 - Parkinson's disease Status: Acute Assessment and Plan: Continue carbidopa levodopa and ropinirole. Dr. Ohara consulted regarding ongoing orthostatic hypotension STOP ROPINIROLE (8) Generalized weakness: Code(s): R53.1 - Weakness Status: Inactive Assessment and Plan: Several days ago the patient complained of generalized weakness, right-sided greater than left, with numbness and tingling in the right temporal area associated with a headache. Brain CT and brain MRI showed no acute findings. Continue on seroquel (9) Nausea: Code(s): R11
--- NOTE | 2021-04-22 11:06 | WPDNEUROPN ---
Progress Note: A&P Additional Plan patient will benefit from the ongoing suction regarding the time the use of the mild adrenal which is very important for the patient as well as the family to understand because he has significant orthostatic hypotension along with the regular hypertension neurologically all the medication will be continued as such depending on his responses taken up and down the Seroquel as well as milder drinking Time Spent With Patient Time with patient: less than 15 minutes Subjective Date/time seen: 04/22/21 11:06 ongoing orthostatic hypotension with autonomic dysfunction and Parkinson's disease complicated by underlying diabetes mellitus, Kacy drain is being adjusted accordingly to keep the orthostatic hypotension under control which will be on the long-term basis according to the need Review of Systems Review of Systems: All systems reviewed & are unremarkable except as noted in HPI and below Exam Narrative: continues to be awake alert, recognizes the physician, follow the instruction appropriately his speech not dysphasic not dysarthric not dysphoric, head normocephalic with no cranial bruit, nose throat examination normal, neck is supple with no cervical bruits no thyromegaly no lymphadenopathy, heart regular, lungs clear, abdomen is soft nontender neurologically he is awake alert follow the instruction appropriately and speech is not obviously dysphasic or dysarthric the cranial examination is normal motor examination reveals generally decreased strength but no focal motor deficit, reflexes symmetrical and plantars are downgoing Objective Data Vital Signs Vital Signs: Vital Signs - 24 hr 04/21/21 11:33 04/21/21 11:45 04/21/21 14:01 Temperature 36.6 C Pulse Rate 88 84 Respiratory Rate 14 Blood Pressure 96/54 L 97/54 L 186/76 H Pulse Oximetry 100 04/21/21 18:00 04/21/21 20:00 04/21/21 22:00 Temperature 36.4 C 36.8 C 36.8 C Pulse Rate 80 86 86 Respiratory Rate 16 20 20 Blood Pressure 158/80 H 172/79 H 183/83 H Pulse Oximetry 100 99 99 04/21/21 22:05 04/22/21 02:00 04/22/21 06:00 Temperature 37.0 C 36.7 C 36.9 C Pulse Rate 85 85 98 Respiratory Rate 21 H 20 21 H Blood Pressure 172/79 H 162/89 H 156/85 H Pulse Oximetry 100 98 100 04/22/21 08:58 Temperature 30.9 C L Pulse Rate 98 Respiratory Rate 16 Blood Pressure 163/77 H Pulse Oximetry 99 Intake/Output Intake/Output: Intake & Output 04/19/21 04/20/21 04/21/21 04/22/21 23:59 23:59 23:59 23:59 Intake Total 640 1240 1920 640 Output Total 1500 1500 1200 850 Balance -860 -260 720 -210 Meds/Results Medications: Active Medications Generic Name Dose Route Start Last Admin Trade Name Darcy PRN Reason Stop Dose Admin Acetaminophen 650 mg 04/12/21 07:09 04/22/21 01:34 Acetaminophen 325 Mg Tablet PO 650 mg Q6H PRN Administration Mild Pain (1-3) Or Fever Allopurinol 150 mg 04/12/21 09:00 04/22/21 09:09 Allopurinol 150 Mg Tablet PO 150 mg DAILY MARICHUY Administration Apixaban 2.5 mg 04/12/21 09:00 04/22/21 09:09 Apixaban 2.5 Mg Tablet PO 2.5 mg BID MARICHUY Administration Artificial Tears 1 drop 04/12/21 07:10 Artificial Tears Ophth Soln 15 Ml Bottle EACH EYE TID PRN Dry Eye(S) Aspirin 81 mg 04/12/21 08:00 04/22/21 09:09 Aspirin 81 Mg Chewable Tablet PO 81 mg DAILY@0800 MARICHUY Administration Atorvastatin Calcium 40 mg 04/12/21 21:00 04/21/21 20:45 Atorvastatin 40 Mg Tablet PO 40 mg HS MARICHUY Administration Bisacodyl 10 mg 04/13/21 08:03 04/13/21 09:01 Bisacodyl 10 Mg Suppository RECTAL 10 mg QAM PRN Administration Constipation Brimonidine Tartrate 1 drop 04/12/21 09:00 04/22/21 09:09 Brimonidine Tartrate 0.2% Op Soln 5 Ml Btl EACH EYE 1 drop TID MARICHUY Administration Bumetanide 1 mg 04/12/21 09:00 04/14/21 08:17 Bumetanide 1 Mg Tablet PO 1 mg DAILY MARICHUY Administration Calcitriol 0.5 mcg 04/13/21 09:00 04/22/21 09:09
[2021-04-22] MEDS: CARBIDOPA/LEVODOPA 25/100 MG TABLET 2 TABLET PO ×2 (11:10→20:55)
[2021-04-22 11:54] LABS: Glucose Point of Care 141 mg/dl (65-105)
--- NOTE | 2021-04-22 12:46 | PM.PNCARD ---
Progress Note: A&P Assessment and Plan (1) Orthostatic hypotension: Code(s): I95.1 - Orthostatic hypotension Status: Acute Assessment and Plan: Presented with significant orthostasis that he was symptomatic with. All vasodilators and coreg have been discontinued at this point. Midodrine has been advanced to 5mg per neurology. I do not see that any orthostatic blood pressure measurements have been taken today, but seems to be improving symptomatically. Will not made any adjustments to his current regimen today. Cardiology will sign off. He should resume outpatient follow up with his established director banking. (2) Status post transcatheter aortic valve replacement (TAVR) using bioprosthesis: Code(s): Z95.3 - Presence of xenogenic heart valve Status: Acute Assessment and Plan: stable, no acute issues. (3) HTN (hypertension): Qualifiers: Hypertension type: essential hypertension Qualified Code(s): I10 - Essential (primary) hypertension Code(s): I10 - Essential (primary) hypertension Status: Chronic Assessment and Plan: Supine hypertension to a degree will need to be accepted given his marked drop in blood pressure upon standing. However, still need to monitor the severity in this regard Particularly if additional therapy such as midodrine is deemed necessary. (4) Cardiomyopathy: Code(s): I42.9 - Cardiomyopathy, unspecified Status: Acute Assessment and Plan: Improved post TAVR Off vasodilators therapy due to intolerance secondary to severe orthostatic hypotension. Subjective Date/time seen: 04/22/21 12:46 Interval history: Follow-up in this 75-year-old admitted because of mental status changes, some weakness as well as orthostasis and dizziness. He has a history of coronary disease, cardiomyopathy, status post TAVR 04/18/2021: Patient denies chest pain, shortness of breath. States he is eating and drinking reasonably well. No new issues overnight. Denies dizziness or lightheadedness although he is not getting up much. Severely orthostatic last night, not performed this morning. 04/19/21: Patient feels a little lightheaded upon standing. Nursing reports he almost passed out yesterday morning on standing with severe orthostatic hypotension. Given IV normal saline 500 cc with improvement in orthostatic severity 160 time 120s yet this a.m. systolic blood pressure lying 190s standing in 80s systolic and symptomatic. He denies chest pain, shortness of breath or palpitations. No new issues overnight otherwise. States he feels okay. Eating and drinking without difficulty. 04/20/2021: Patient is sleeping flat in bed upon entering the room upon awakening is appears to be comfortable and offers no complaints. Has not yet had orthostatic vital signs taken today. 04/21/2021:Sitting up in the chair comfortably. States he did not have any dizziness or presyncope when he stood to get to the chair. No complaints aside from feeling cold. Date of service 04/22/2019: Patient is lethargic today, but continues to deny any dizziness, presyncope, syncope. Review of Systems Review of Systems: All systems reviewed & are unremarkable except as noted in HPI and below Constitutional: Constitutional: Reports as per HPI, Reports no additional constitutional complaints and Reports weakness Eyes: Eyes: Reports as per HPI and Reports no additional eye complaints ENT: Reports system reviewed and no additional complaints, except as documented and Reports as per HPI Cardiovascular: Cardiovascular: Reports as per HPI, Reports no additional cardiovascular complaints, Denies chest pain, Denies lightheadedness, Denies palpitations, Denies dyspnea and Denies dyspnea on exertion Respiratory: Respiratory: Reports as per HPI, Reports no additional respiratory complaints, Denies dyspnea and Denies dyspnea on exertion Gastrointestinal: Gastrointestinal: Reports as p
--- NOTE | 2021-04-22 13:19 | PCPTNOTE ---
Attempted therapy session. Pt was out of room for CT.
[2021-04-22 16:06] LABS: Add Urine Microscopic? YES; Appearance Urine Clear (Clear); Bilirubin Urine Negative (Negative); Blood Urine 2+ (Negative); Color Urine Yellow (Yellow); Glucose Urine UA 1+ mg/dL (Negative); Ketones Urine Trace mg/dL (Negative); Leukocyte Esterase Ur Negative LEU/UL (Negative); Mucus Urine Rare /lpf; Nitrate Urine Negative (Negative); Protein Urine 3+ mg/dL (Negative); RBC Urine 21-50 /hpf (0-2); Squamous Epithelial Cell Urine Rare /hpf (Few); Urobilinogen Urine Negative mg/dL (<2.0)
[2021-04-22 16:39] LABS: Glucose Point of Care 143 mg/dl (65-105)
[2021-04-22] MEDS: ERTAPENEM SODIUM 0.5 GM in SODIUM CHLORIDE 0.9% IV 50 ML IVPB (18:30)
[2021-04-22] MEDS: ATORVASTATIN 40 MG TABLET PO (20:55)
[2021-04-22] MEDS: VENLAFAXINE HCL XR 75 MG CAP.ER.24H PO (20:56)
[2021-04-22] MEDS: LATANOPROST 0.005% OP SOLN 2.5 ML BTL 1 DROP EACH EYE (20:56)
[2021-04-22] MEDS: QUEtiapine FUMARATE 12.5 MG TABLET PO (20:56)
[2021-04-22] MEDS: TAMSULOSIN HCL 0.4 MG CAPSULE PO (20:56)
[2021-04-22 21:11] LABS: Glucose Point of Care 175 mg/dl (65-105)
[2021-04-23] VITALS (8 sets, daily range): BP systolic 143–179; BP diastolic 83–98; PULSE 86–94; RESP 14–21; TEMP 36.4–36.9; O2SAT 98–100
[2021-04-23 05:49] LABS: Basophils Absolute Auto 0.1 K/mm3 (0.0-0.1); Basophils Percent Auto 0.4 % (0.2-1.2); Eosinophils Absolute Auto 0.1 K/mm3 (0-0.3); Eosinophils Percent Auto 0.7 % (0-4.4); Hematocrit 40.7 % (42.0-52.0); Hemoglobin 12.9 g/dL (14.0-18.0); Immature Granulocyte Absolute 0.05 K/mm3 (0.00-0.031); Immature Granulocyte Percent A 0.4 % (0-0.5); Lymphocytes Percent Auto 21.6 % (18.3-44.2); Mean Corpuscular HGB Conc 31.7 g/dl (32-36); Mean Corpuscular Hemoglobin 30.8 pg (26-34); Mean Corpuscular Volume 97.1 fl (80-100); Mean Platelet Volume 12.3 fl (7.4-10.4); Monocytes Absolute Auto 0.9 K/mm3 (0.1-0.6); Monocytes Percent Auto 6.8 % (2.6-8.5); Neutrophils Absolute Auto 9.4 K/mm3 (1.3-6.7); Neutrophils Percent Auto 70.1 % (45.5-73.1); Platelet Count Result 139 k/mm3 (150-375); Red Blood Count 4.19 M/mm3 (4.6-6.20); Red Cell Distribution Width 16.6 % (11.5-14.5); White Blood Count 13.4 K/mm3 (4.5-10.0)
[2021-04-23 06:00] LABS: Alanine Aminotransferase 9 U/L (4-50); Albumin Level 3.4 g/dL (3.5-5.1); Alkaline Phosphatase 85 U/L (38-126); Anion Gap 7 mmol/L (8-16); Aspartate Amino Transferase 25 U/L (17-59); Bilirubin,Total 1.1 mg/dL (0.2-1.3); Blood Urea Nitrogen 60 mg/dL (9-20); Calcium 9.8 mg/dL (8.4-10.2); Carbon Dioxide 19 mmol/L (22-30); Chloride 107 mmol/L (98-107); Estimated CRCL calculation 26 ml/min; Estimated Glomerular Filt Rate 28; Glucose 127 mg/dL (65-110); Potassium 4.5 mmol/L (3.4-5.0); Sodium 133 mmol/L (137-145)
[2021-04-23 08:20] LABS: Glucose Point of Care 128 mg/dl (65-105)
[2021-04-23] MEDS: OXYBUTYNIN CHLORIDE 5 MG TABLET PO (11:01)
[2021-04-23] MEDS: PYRIDOXINE HCL 50 MG TABLET 100 MG PO (11:01)
[2021-04-23] MEDS: predniSONE 5 MG TABLET PO (11:01)
[2021-04-23] MEDS: allopurinoL 150 MG TABLET PO (11:01)
[2021-04-23] MEDS: PANTOPRAZOLE 40 MG TABLET PO ×2 (11:01→21:42)
[2021-04-23] MEDS: MIDODRINE HCL 2.5 MG TABLET 5 MG PO ×2 (11:02→17:45)
[2021-04-23] MEDS: ASPIRIN 81 MG CHEWABLE TABLET PO (11:02)
[2021-04-23] MEDS: CARBIDOPA/LEVODOPA 25/100 MG TABLET 2 TABLET PO ×2 (11:02→21:40)
[2021-04-23] MEDS: FERROUS SULFATE 324 MG TABLET PO (11:02)
[2021-04-23] MEDS: SACCHAROMYCES BOULARDII 250 MG CAPSULE PO ×2 (11:02→17:45)
[2021-04-23] MEDS: APIXABAN 2.5 MG TABLET PO ×2 (11:02→17:45)
[2021-04-23] MEDS: CARBIDOPA/LEVODOPA 25/250 MG TABLET 1 TABLET PO ×2 (11:02→17:45)
[2021-04-23] MEDS: VITAMIN B CMPLX/VIT C/FOLIC AC 1 CAPSULE 1 CAP PO (11:02)
[2021-04-23] MEDS: BRIMONIDINE TARTRATE 0.2% OP SOLN 5 ML BTL 1 DROP EACH EYE ×3 (11:03→17:45)
[2021-04-23] MEDS: DOCUSATE SODIUM 100 MG CAPSULE PO ×2 (11:03→17:45)
[2021-04-23] MEDS: INSULIN GLARGINE (*BKC) 100 UNITS/ML 11 UNITS SUB-Q (11:05)
--- NOTE | 2021-04-23 11:42 | PM.IMPN ---
Progress Note: A&P Assessment and Plan (1) Orthostatic hypotension: Code(s): I95.1 - Orthostatic hypotension Status: Acute Assessment and Plan: 04/18: An ongoing issue likely due to autonomic dysfunction from his Parkinson's and diabetes. Was on midodrine in the past however due to significant supine hypertension he was started back on antihypertensives and midodrine was discontinued. Only recently however did he start having significant problems again. Thus far his antihypertensives have been held and tamsulosin has been decreased by half. Significant orthostatic hypotension last evenin/85 --> 68/42. 04/19: Pt remains orthostatic. Hold Bp medication continue tamulosin. Pt to start on low dose midodrine as per Dr Luque. Pt to have his ropinirole stopped and started on seroquel as per Dr Gross. 04/23: Pt remains orthostatic, Pt was very dizzy yesterday and had to have fluid boluses yesterday. Told pt is still orthostatic, continue PT/OT and midodrine. (2) Urinary tract infection: Qualifiers: Hematuria presence: with hematuria Urinary tract infection type: site unspecified Qualified Code(s): N39.0 - Urinary tract infection, site not specified; R31.9 - Hematuria, unspecified Code(s): N39.0 - Urinary tract infection, site not specified Status: Acute Assessment and Plan: Urine culture grew Proteus mirabilis pt is currently on ertapenem for another day. Initially started on cefepime due to ESBL Klebsiella oxytoca on outpatient urine culture taken 04/07/21. Switched to ertapenem on 04/13 following culture results of Proteus mirabilis, day #01/02 (3) Urine retention: Code(s): R33.9 - Retention of urine, unspecified Status: Acute Assessment and Plan: Davidson catheter inserted not long after admission due to urinary retention. Failed a voiding trial on 04/15/2021. Continue Davidson catheter, will need follow-up with Urology as an outpatient. Continue tamsulosin at 0.4 mg qHS; half his usual dose due to ongoing orthostatic hypotension. 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 He felt lightheaded prior to the fall and he fell forward on to his knees, sustaining no injuries. No reported loss of consciousness though fall may very well have been due to orthostatic hypotension. Brain CT showed no acute findings. Continue fall precautions. PT/OT consulted. (5) Hypoglycemia: Code(s): E16.2 - Hypoglycemia, unspecified Status: Acute Assessment and Plan: Continue Lantus 11 units in the morning and sliding scale insulin with meals. Continue monitoring glucose a.c. HS. Hypoglycemic protocol in place. (6) Chronic kidney disease, stage 4 (severe): Code(s): N18.4 - Chronic kidney disease, stage 4 (severe) Status: Acute Assessment and Plan: Status post renal transplant many years ago now with stage IV renal disease. Renal function stable. (7) Parkinson disease: Code(s): G20 - Parkinson's disease Status: Acute Assessment and Plan: Continue carbidopa levodopa and ropinirole. Dr. Ohara consulted regarding ongoing orthostatic hypotension STOP ROPINIROLE (8) Generalized weakness: Code(s): R53.1 - Weakness Status: Inactive Assessment and Plan: Several days ago the patient complained of generalized weakness, right-sided greater than left, with numbness and tingling in t
[2021-04-23 12:07] LABS: Glucose Point of Care 175 mg/dl (65-105)
--- NOTE | 2021-04-23 13:12 | WPDNEUROPN ---
Progress Note: A&P Additional Plan discussed with the nurses to continue the timely use of the midodrane if any problem arise or concern give us a call Time Spent With Patient Time with patient: less than 15 minutes Subjective Date/time seen: 04/23/21 13:12 neurogenic orthostatic hypotension patient is already in my to drain 5 mg twice in addition to other comorbid condition particularly hypertension has been doing fairly well but still gets intermittent hypotension when raised our Review of Systems Review of Systems: All systems reviewed & are unremarkable except as noted in HPI and below Exam Narrative: remains awake alert, communicative, cranial nerve examination normal, heart regular, lungs clear ,abdomen soft, and neuro examination unchanged Objective Data Vital Signs Vital Signs: Vital Signs - 24 hr 04/22/21 14:00 04/22/21 18:00 04/22/21 22:00 Temperature 36.6 C 36.3 C L 36.7 C Pulse Rate 76 77 78 Respiratory Rate 14 14 20 Blood Pressure 198/89 H 172/79 H 177/82 H Pulse Oximetry 100 100 99 04/22/21 23:00 04/23/21 02:00 04/23/21 06:00 Temperature 36.9 C 36.4 C L Pulse Rate 87 86 Respiratory Rate 21 H 21 H Blood Pressure 156/93 H 153/88 H Pulse Oximetry 96 100 100 04/23/21 12:47 04/23/21 12:55 Temperature 36.9 C 36.9 C Pulse Rate 88 Respiratory Rate 20 Blood Pressure 179/86 H Pulse Oximetry 100 Intake/Output Intake/Output: Intake & Output 04/20/21 04/21/21 04/22/21 04/23/21 23:59 23:59 23:59 23:59 Intake Total 1240 1920 1850 380 Output Total 1500 1200 1400 600 Balance -260 720 450 -220 Meds/Results Medications: Active Medications Generic Name Dose Route Start Last Admin Trade Name Freq PRN Reason Stop Dose Admin Acetaminophen 650 mg 04/12/21 07:09 04/22/21 01:34 Acetaminophen 325 Mg Tablet PO 650 mg Q6H PRN Administration Mild Pain (1-3) Or Fever Allopurinol 150 mg 04/12/21 09:00 04/23/21 11:01 Allopurinol 150 Mg Tablet PO 150 mg DAILY MARICHUY Administration Apixaban 2.5 mg 04/12/21 09:00 04/23/21 11:02 Apixaban 2.5 Mg Tablet PO 2.5 mg BID MARICHUY Administration Artificial Tears 1 drop 04/12/21 07:10 Artificial Tears Ophth Soln 15 Ml Bottle EACH EYE TID PRN Dry Eye(S) Aspirin 81 mg 04/12/21 08:00 04/23/21 11:02 Aspirin 81 Mg Chewable Tablet PO 81 mg DAILY@0800 MARICHUY Administration Atorvastatin Calcium 40 mg 04/12/21 21:00 04/22/21 20:55 Atorvastatin 40 Mg Tablet PO 40 mg HS MARICHUY Administration Bisacodyl 10 mg 04/13/21 08:03 04/13/21 09:01 Bisacodyl 10 Mg Suppository RECTAL 10 mg QAM PRN Administration Constipation Brimonidine Tartrate 1 drop 04/12/21 09:00 04/23/21 11:03 Brimonidine Tartrate 0.2% Op Soln 5 Ml Btl EACH EYE 1 drop TID MARICHUY Administration Bumetanide 1 mg 04/12/21 09:00 04/14/21 08:17 Bumetanide 1 Mg Tablet PO 1 mg DAILY MARICHUY Administration Calcitriol 0.5 mcg 04/13/21 09:00 04/22/21 09:09 Calcitriol 0.25 Mcg Capsule PO 0.5 mcg MoWeFr@0900 MARICHUY Administration Carbidopa/Levodopa 1 tablet 04/12/21 09:00 04/23/21 11:02 Carbidopa/Levodopa 25/250 Mg Tablet PO 1 tablet 0900,1700 MARICHUY Administration Carbidopa/Levodopa 2 tablet 04/12/21 11:00 04/23/21 11:02 Carbidopa/Levodopa 25/100 Mg Tablet PO 2 tablet 1100,2100 MARICHUY Administration Dextrose 12.5 gm 04/12/21 07:13 Dextrose 50% 25 Gm/50 Ml Syringe IV PUSH PRN PRN Hypoglycemia Protocol Docusate Sodium 100 mg 04/12/21 09:00 04/23/21 11:03 Docusate Sodium 100 Mg Capsule PO 100 mg BID MARICHUY Administration Ferrous Sulfate 324 mg 04/12/21 09:00 04/23/21 11:02 Ferrous Sulfate 324 Mg Tablet PO 324 mg DAILY MARICHUY Administration Fluticasone Propionate 2 spray 04/12/21 07:10 Fluticasone Propionate 0.05% Na Spr 16 Gm Btl (*Bkc) NASAL DAILY PRN Allergy Symptoms Glucagon 1 mg 04/12/21 07:13 Glucagon For Inj 1 Mg Vial IM
--- NOTE | 2021-04-23 14:08 | PM.PNCARD ---
Progress Note: A&P Assessment and Plan (1) Orthostatic hypotension: Code(s): I95.1 - Orthostatic hypotension Status: Acute Assessment and Plan: Presented with Severe symptomatic orthostatic hypotension somewhat improved with the addition of midodrine discontinuation of majority of his home cardiovascular medications. Midodrine has been advanced to 5mg per neurology. Again, I do not see that any orthostatic blood pressure measurements have been taken today and should be followed. Will defer further management to primary service and Neurology. Cardiology will sign off. 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 please do not hesitate to contact us with any additional questions or concerns. Plan to keep him off his home cardiovascular medical therapy given this unfortunate and difficult circumstances. (2) Status post transcatheter aortic valve replacement (TAVR) using bioprosthesis: Code(s): Z95.3 - Presence of xenogenic heart valve Status: Acute Assessment and Plan: stable, no acute issues. (3) HTN (hypertension): Qualifiers: Hypertension type: essential hypertension Qualified Code(s): I10 - Essential (primary) hypertension Code(s): I10 - Essential (primary) hypertension Status: Chronic Assessment and Plan: Supine hypertension but acceptable given his marked drop in blood pressure upon standing. However, still need to monitor the severity in this regard. (4) Cardiomyopathy: Code(s): I42.9 - Cardiomyopathy, unspecified Status: Acute Assessment and Plan: Improved post TAVR Off vasodilators therapy due to intolerance secondary to severe orthostatic hypotension. difficult situation unable to tolerate guideline directed medical therapy as a result. Subjective Date/time seen: Date of service:04/23/21 14:08 Interval history: Follow-up in this 75-year-old admitted because of mental status changes, some weakness as well as orthostasis and dizziness. He has a history of coronary disease, cardiomyopathy, status post TAVR Patient is somewhat lethargic but awake states he feels dizzy with standing, feels weak and tired. Denies chest pain or shortness of breath. I do not see that orthostatics have been checked past couple days. Review of Systems Review of Systems: All systems reviewed & are unremarkable except as noted in HPI and below Constitutional: Constitutional: Reports as per HPI, Reports no additional constitutional complaints and Reports weakness Eyes: Eyes: Reports as per HPI and Reports no additional eye complaints ENT: Reports system reviewed and no additional complaints, except as documented and Reports as per HPI Cardiovascular: Cardiovascular: Reports as per HPI, Reports no additional cardiovascular complaints, Denies chest pain, Denies lightheadedness, Denies palpitations, Denies dyspnea and Denies dyspnea on exertion Respiratory: Respiratory: Reports as per HPI, Reports no additional respiratory complaints, Denies dyspnea and Denies dyspnea on exertion Gastrointestinal: Gastrointestinal: Reports as per HPI and Reports no additional gastrointestinal complaints Genitourinary: Genitourinary: Reports as per HPI Musculoskeletal: Musculoskeletal: Reports as per HPI and Reports arthralgias Integumentary/Breasts: Skin/Breast: Reports system reviewed and no additional complaints, except as docu and Reports as per HPI Neurologic: Reports as per HPI and Reports weakness Psychiatric: Psychiatric: Reports as per HPI Endocrine: Endocrine: Reports no additional endocrine complaints, Reports as per HPI and Denies palpitations Hematologic/Lymphatic: Hematologic/Lymphatic: Reports no additional hematologic/lymphatic complaints and Reports as per HPI Allergic/Immunologic: Allergic/Immunologic: Reports no additional allergic/immunologic complaints and Reports as per HPI Exam Const: General: comfortable
[2021-04-23 16:41] LABS: Glucose Point of Care 155 mg/dl (65-105)
[2021-04-23] MEDS: ATORVASTATIN 40 MG TABLET PO (21:40)
[2021-04-23] MEDS: VENLAFAXINE HCL XR 75 MG CAP.ER.24H PO (21:42)
[2021-04-23] MEDS: LATANOPROST 0.005% OP SOLN 2.5 ML BTL 1 DROP EACH EYE (21:42)
[2021-04-23] MEDS: QUEtiapine FUMARATE 12.5 MG TABLET PO (21:42)
[2021-04-23] MEDS: TAMSULOSIN HCL 0.4 MG CAPSULE PO (21:42)
[2021-04-23 21:54] LABS: Glucose Point of Care 162 mg/dl (65-105)
[2021-04-23] MEDS: MELATONIN 5 MG TABLET PO (23:51)
[2021-04-23] MEDS: ACETAMINOPHEN 325 MG TABLET 650 MG PO (23:52)
[2021-04-24] VITALS (9 sets, daily range): BP systolic 125–187; BP diastolic 65–95; PULSE 77–89; RESP 15–24; TEMP 35.7–37; O2SAT 98–100
--- NOTE | 2021-04-24 05:30 | PC.NURSE ---
Spoke with patients Lisandra. Notified her that his home med supply was empty. Dose due at 2100. She is on her way to drop off more of his home med supply. Updated Lisandra how her was doing. He is resting well with no issues at this time. Notified her that her fell out of bed on the floor earlier today. 04/23 on day shift. No injury noted and patient does not complain of pain anywhere. She voiced understanding with no complaints at this time. Medication has been verified by pharmacy.
[2021-04-24 06:03] LABS: Basophils Percent Auto 0.4 % (0.2-1.2); Eosinophils Absolute Auto 0.1 K/mm3 (0-0.3); Eosinophils Percent Auto 0.6 % (0-4.4); Hematocrit 37.1 % (42.0-52.0); Hemoglobin 12.4 g/dL (14.0-18.0); Immature Granulocyte Absolute 0.04 K/mm3 (0.00-0.031); Immature Granulocyte Percent A 0.4 % (0-0.5); Immature Platelet Fraction Pct 4.6 % (0.9-11.2); Lymphocytes Absolute Auto 2.19 K/mm3 (0.9-3.2); Lymphocytes Percent Auto 22.9 % (18.3-44.2); Mean Corpuscular HGB Conc 33.4 g/dl (32-36); Mean Corpuscular Hemoglobin 30.7 pg (26-34); Mean Corpuscular Volume 91.8 fl (80-100); Mean Platelet Volume 11.1 fl (7.4-10.4); Monocytes Absolute Auto 0.7 K/mm3 (0.1-0.6); Monocytes Percent Auto 7.2 % (2.6-8.5); Neutrophils Absolute Auto 6.5 K/mm3 (1.3-6.7); Neutrophils Percent Auto 68.5 % (45.5-73.1); Platelet Count Result 116 k/mm3 (150-375); Red Blood Count 4.04 M/mm3 (4.6-6.20); Red Cell Distribution Width 16.3 % (11.5-14.5); White Blood Count 9.6 K/mm3 (4.5-10.0)
[2021-04-24] MEDS: BRIMONIDINE TARTRATE 0.2% OP SOLN 5 ML BTL 1 DROP EACH EYE ×3 (08:14→16:57)
[2021-04-24] MEDS: PYRIDOXINE HCL 50 MG TABLET 100 MG PO (08:14)
[2021-04-24] MEDS: ASPIRIN 81 MG CHEWABLE TABLET PO (08:15)
[2021-04-24] MEDS: DOCUSATE SODIUM 100 MG CAPSULE PO ×2 (08:15→16:57)
[2021-04-24] MEDS: SACCHAROMYCES BOULARDII 250 MG CAPSULE PO ×2 (08:15→16:58)
[2021-04-24] MEDS: CARBIDOPA/LEVODOPA 25/250 MG TABLET 1 TABLET PO ×2 (08:15→16:58)
[2021-04-24] MEDS: FERROUS SULFATE 324 MG TABLET PO (08:15)
[2021-04-24] MEDS: allopurinoL 150 MG TABLET PO (08:15)
[2021-04-24] MEDS: predniSONE 5 MG TABLET PO (08:15)
[2021-04-24] MEDS: APIXABAN 2.5 MG TABLET PO ×2 (08:15→16:57)
[2021-04-24] MEDS: OXYBUTYNIN CHLORIDE 5 MG TABLET PO (08:15)
[2021-04-24] MEDS: MIDODRINE HCL 2.5 MG TABLET 5 MG PO ×2 (08:15→16:57)
[2021-04-24] MEDS: VITAMIN B CMPLX/VIT C/FOLIC AC 1 CAPSULE 1 CAP PO (08:15)
[2021-04-24] MEDS: PANTOPRAZOLE 40 MG TABLET PO ×2 (08:15→20:31)
[2021-04-24 08:16] LABS: Glucose Point of Care 120 mg/dl (65-105)
[2021-04-24] MEDS: INSULIN GLARGINE (*BKC) 100 UNITS/ML 11 UNITS SUB-Q (08:16)
[2021-04-24 11:46] LABS: Glucose Point of Care 146 mg/dl (65-105)
[2021-04-24] MEDS: CARBIDOPA/LEVODOPA 25/100 MG TABLET 2 TABLET PO ×2 (11:48→20:30)
--- NOTE | 2021-04-24 13:12 | PM.IMPN ---
Progress Note: A&P Assessment and Plan (1) Orthostatic hypotension: Code(s): I95.1 - Orthostatic hypotension Status: Acute Assessment and Plan: 04/18: An ongoing issue likely due to autonomic dysfunction from his Parkinson's and diabetes. Was on midodrine in the past however due to significant supine hypertension he was started back on antihypertensives and midodrine was discontinued. Only recently however did he start having significant problems again. Thus far his antihypertensives have been held and tamsulosin has been decreased by half. Significant orthostatic hypotension last evenin/85 --> 68/42. 04/19: Pt remains orthostatic. Hold Bp medication continue tamulosin. Pt to start on low dose midodrine as per Dr Luque. Pt to have his ropinirole stopped and started on seroquel as per Dr Gross. 04/23: Pt remains orthostatic, Pt was very dizzy yesterday and had to have fluid boluses yesterday. Told pt is still orthostatic, continue PT/OT and midodrine. 04/24: Pt appears calm and relaxed not confused continue Physical therapy today. (2) Urinary tract infection: Qualifiers: Hematuria presence: with hematuria Urinary tract infection type: site unspecified Qualified Code(s): N39.0 - Urinary tract infection, site not specified; R31.9 - Hematuria, unspecified Code(s): N39.0 - Urinary tract infection, site not specified Status: Acute Assessment and Plan: Pt is off IV ertapenem now completed 10- days already Initially started on cefepime due to ESBL Klebsiella oxytoca on outpatient urine culture taken 04/07/21. Switched to ertapenem on 04/13 following culture results of Proteus mirabilis, day #01/02 (3) Urine retention: Code(s): R33.9 - Retention of urine, unspecified Status: Acute Assessment and Plan: Davidson catheter inserted not long after admission due to urinary retention. Failed a voiding trial on 04/15/2021. Continue Davidson catheter, will need follow-up with Urology as an outpatient. Continue tamsulosin at 0.4 mg qHS; half his usual dose due to ongoing orthostatic hypotension. 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 He felt lightheaded prior to the fall and he fell forward on to his knees, sustaining no injuries. No reported loss of consciousness though fall may very well have been due to orthostatic hypotension. Brain CT showed no acute findings. Continue fall precautions. PT/OT consulted. (5) Hypoglycemia: Code(s): E16.2 - Hypoglycemia, unspecified Status: Acute Assessment and Plan: Continue Lantus 11 units in the morning and sliding scale insulin with meals. Continue monitoring glucose a.c. HS. Hypoglycemic protocol in place. (6) Chronic kidney disease, stage 4 (severe): Code(s): N18.4 - Chronic kidney disease, stage 4 (severe) Status: Acute Assessment and Plan: Status post renal transplant many years ago now with stage IV renal disease. Renal function stable. (7) Parkinson disease: Code(s): G20 - Parkinson's disease Status: Acute Assessment and Plan: Continue carbidopa levodopa and ropinirole. Dr. Ohara consulted regarding ongoing orthostatic hypotension STOP ROPINIROLE (8) Generalized weakness: Code(s): R53.1 - Weakness Status: Inactive Assessment and Plan: Several days ago the patient complained of generalized weakness, right-si
[2021-04-24 16:32] LABS: Glucose Point of Care 191 mg/dl (65-105)
[2021-04-24] MEDS: ATORVASTATIN 40 MG TABLET PO (20:30)
[2021-04-24] MEDS: VENLAFAXINE HCL XR 75 MG CAP.ER.24H PO (20:31)
[2021-04-24] MEDS: TAMSULOSIN HCL 0.4 MG CAPSULE PO (20:31)
[2021-04-24] MEDS: QUEtiapine FUMARATE 12.5 MG TABLET PO (20:31)
[2021-04-24] MEDS: LATANOPROST 0.005% OP SOLN 2.5 ML BTL 1 DROP EACH EYE (20:31)
[2021-04-24 21:03] LABS: Glucose Point of Care 201 mg/dl (65-105)
[2021-04-25] VITALS (9 sets, daily range): BP systolic 76–219; BP diastolic 22–128; PULSE 74–87; RESP 16–20; TEMP 36.5–36.6; O2SAT 100
[2021-04-25 08:16] LABS: Glucose Point of Care 163 mg/dl (65-105)
[2021-04-25] MEDS: ASPIRIN 81 MG CHEWABLE TABLET PO (08:52)
[2021-04-25] MEDS: APIXABAN 2.5 MG TABLET PO (08:52)
[2021-04-25] MEDS: BRIMONIDINE TARTRATE 0.2% OP SOLN 5 ML BTL 1 DROP EACH EYE ×2 (08:52→11:54)
[2021-04-25] MEDS: allopurinoL 150 MG TABLET PO (08:52)
[2021-04-25] MEDS: calcitrioL 0.25 MCG CAPSULE 0.5 MCG PO (08:53)
[2021-04-25] MEDS: DOCUSATE SODIUM 100 MG CAPSULE PO (08:54)
[2021-04-25] MEDS: CARBIDOPA/LEVODOPA 25/250 MG TABLET 1 TABLET PO (08:54)
[2021-04-25] MEDS: FERROUS SULFATE 324 MG TABLET PO (08:54)
[2021-04-25] MEDS: MIDODRINE HCL 2.5 MG TABLET 5 MG PO (08:57)
[2021-04-25] MEDS: VITAMIN B CMPLX/VIT C/FOLIC AC 1 CAPSULE 1 CAP PO (08:58)
[2021-04-25] MEDS: PANTOPRAZOLE 40 MG TABLET PO (08:58)
[2021-04-25] MEDS: PYRIDOXINE HCL 50 MG TABLET 100 MG PO (08:58)
[2021-04-25] MEDS: predniSONE 5 MG TABLET PO (08:58)
[2021-04-25] MEDS: SACCHAROMYCES BOULARDII 250 MG CAPSULE PO (08:58)
[2021-04-25] MEDS: INSULIN GLARGINE (*BKC) 100 UNITS/ML 11 UNITS SUB-Q (09:01)
[2021-04-25] MEDS: OXYBUTYNIN CHLORIDE 5 MG TABLET PO (09:16)
--- NOTE | 2021-04-25 09:22 | PM.DS ---
DS: Admitting Diagnosis Discharge Date 04/25/2021 Admitting Diagnosis UTI, hallucinations DS: Discharge Diagnosis Discharge Diagnosis (1) Orthostatic hypotension: Code(s): I95.1 - Orthostatic hypotension Status: Acute Assessment and Plan: 04/18: An ongoing issue likely due to autonomic dysfunction from his Parkinson's and diabetes. Was on midodrine in the past however due to significant supine hypertension he was started back on antihypertensives and midodrine was discontinued. Only recently however did he start having significant problems again. Thus far his antihypertensives have been held and tamsulosin has been decreased by half. Significant orthostatic hypotension last evenin/85 --> 68/42. 04/19: Pt remains orthostatic. Hold Bp medication continue tamulosin. Pt to start on low dose midodrine as per Dr Luque. Pt to have his ropinirole stopped and started on seroquel as per Dr Gross. 04/23: Pt remains orthostatic, Pt was very dizzy yesterday and had to have fluid boluses yesterday. Told pt is still orthostatic, continue PT/OT and midodrine. 04/24: Pt appears calm and relaxed not confused continue Physical therapy today. Pt is still orthostatic today. 04/25: Pt is keen to be discharged, pt is orthostatic today and dizzy on standing. Long discussion with his that this may be a retirement problem, with severe orthostatic hypotension and SNF will have to take some precautions. (2) Urinary tract infection: Qualifiers: Hematuria presence: with hematuria Urinary tract infection type: site unspecified Qualified Code(s): N39.0 - Urinary tract infection, site not specified; R31.9 - Hematuria, unspecified Code(s): N39.0 - Urinary tract infection, site not specified Status: Acute Assessment and Plan: Pt is off IV ertapenem now completed 10- days already Initially started on cefepime due to ESBL Klebsiella oxytoca on outpatient urine culture taken 04/07/21. Switched to ertapenem on 04/13 day #01/02 (3) Urine retention: Code(s): R33.9 - Retention of urine, unspecified Status: Acute Assessment and Plan: Davidson catheter inserted not long after admission due to urinary retention. Failed a voiding trial on 04/15/2021. Continue Davidson catheter, will need follow-up with Urology as an outpatient. Continue tamsulosin at 0.4 mg qHS; half his usual dose due to ongoing orthostatic hypotension. 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 He felt lightheaded prior to the fall and he fell forward on to his knees, sustaining no injuries. No reported loss of consciousness though fall may very well have been due to orthostatic hypotension. Brain CT showed no acute findings. Continue fall precautions. PT/OT consulted. (5) Hypoglycemia: Code(s): E16.2 - Hypoglycemia, unspecified Status: Acute Assessment and Plan: Continue Lantus 11 units in the morning and sliding scale insulin with meals. Continue monitoring glucose a.c. HS. Hypoglycemic protocol in place. (6) Chronic kidney disease, stage 4 (severe): Code(s): N18.4 - Chronic kidney disease, stage 4 (severe) Status: Acute Assessment and Plan: Status post renal transplant many years ago now with stage IV renal disease. Renal function stable. (7) Parkinson disease: Code(s): G20 - Parkinson's disease Status: Acute Assessment and Plan: Continue carbidopa levodopa and ropinirole. Dr. Duong
[2021-04-25] MEDS: CARBIDOPA/LEVODOPA 25/100 MG TABLET 2 TABLET PO (11:17)
[2021-04-25 11:43] LABS: Glucose Point of Care 214 mg/dl (65-105)
[2021-04-25] MEDS: INSULIN ASPART (*BKC) 100 UNITS/ML SUB-Q (11:51)
[2021-04-25 13:53] LABS: EDCOVIDSCREEN Negative (Negative)
== END 2021-04-25 14:58 | DRG 689 ==
LOC: ANHED 20:26 → ANH2MED 20:49
PROVIDERS: Internal Medicine; Physician Assistant; Admitting Provider Internal Medicine; Emergency Provider Emergency Medicine; PCP Family Medicine; Visit Provider Family Medicine
DX: N39.0 Urinary tract infection, site not specified (principal); G93.41 Metabolic encephalopathy; Z94.0 Kidney transplant status; I13.0 Hypertensive heart and chronic kidney disease with heart failure and stage 1 through stage 4 chronic kidney disease, or unspecified chronic kidney disease; N18.4 Chronic kidney disease, stage 4 (severe); I42.9 Cardiomyopathy, unspecified; G90.3 Multi-system degeneration of the autonomic nervous system; I25.10 Atherosclerotic heart disease of native coronary artery without angina pectoris; E11.649 Type 2 diabetes mellitus with hypoglycemia without coma; Z20.822 Contact with and (suspected) exposure to COVID-19; R31.9 Hematuria, unspecified; R33.9 Retention of urine, unspecified; B96.4 Proteus (mirabilis) (morganii) as the cause of diseases classified elsewhere; R53.1 Weakness; W18.30XA Fall on same level, unspecified, initial encounter; G20 Parkinson's disease; E11.22 Type 2 diabetes mellitus with diabetic chronic kidney disease; E11.43 Type 2 diabetes mellitus with diabetic autonomic (poly)neuropathy; E11.51 Type 2 diabetes mellitus with diabetic peripheral angiopathy without gangrene; K31.84 Gastroparesis; I50.9 Heart failure, unspecified; E78.5 Hyperlipidemia, unspecified; N40.0 Benign prostatic hyperplasia without lower urinary tract symptoms; I25.2 Old myocardial infarction; Z79.01 Long term (current) use of anticoagulants; Z79.4 Long term (current) use of insulin; Z79.82 Long term (current) use of aspirin; Z79.899 Other long term (current) drug therapy; Z86.73 Personal history of transient ischemic attack (TIA), and cerebral infarction without residual deficits; Z95.1 Presence of aortocoronary bypass graft; Z95.3 Presence of xenogenic heart valve
CPT/HCPCS: 36415; 70450; 70551; 71045; 71250; 74176; 80048; 80053; 81001; 82948; 83735; 85025; 85027; 85055; 87040; 87077; 87086; 87088; 87186; 87426; 96365; 97110; 97161; 97166; 97530; 97535; 99285; A9270; C9803; G0378; J0692; J1335; J1815; J2550; J7040; J7120; J7512; P9047

== ENCOUNTER 2021-05-01 19:41 | Inpatient (IN) | payer MEDICARE, BC, SELFPAY ==
[2021-05-01] VITALS (21 sets, daily range): BP systolic 133–167; BP diastolic 96–127; PULSE 79–140; RESP 17–28; TEMP 36.7; O2SAT 99–100
--- NOTE | ~2021-05-01 | XR_ITS ---
EXAMINATION: XR abdomen/kub 1V DATE: 05/04/2021 16:07 INDICATION: Abdominal pain. TECHNIQUE: A supine view of the abdomen on 2 radiographs was obtained. COMPARISON: CT abdomen and pelvis 04/22/21 FINDINGS: There are no dilated loops of bowel. There is a small volume of stool in the colon. Median sternotomy wires are noted. There are changes of aortic valve replacement. IMPRESSION: 1. Nonobstructive bowel gas pattern. Reviewed, dictated and finalized at location E. ECTIVE SIGNAL OPERATOR
--- NOTE | ~2021-05-01 | XR_ITS ---
EXAMINATION: XR chest port-a-cath/central INDICATION: JACC placement TECHNIQUE: Portable AP chest at 0842 hours COMPARISON: 05/01/2021 FINDINGS: A right internal jugular catheter ends with its tip in the distal superior vena cava. There are patchy airspace opacities throughout all lung zones. No pleural effusion or pneumothorax is iden tified. Cardiomegaly is noted. There are changes of prior cardiac surgery. IMPRESSION: 1. Right internal jugular catheter ending in the distal superior vena cava. 2. Diffuse lung disease, consistent with pneumonia versus pulmonary edema. Reviewed, dictated and finalized at location A. RITY THREAT ANALYST
--- NOTE | ~2021-05-01 | XR_ITS ---
EXAMINATION: XR chest 2V EXAM DATE: 05/01/2021 20:32 INDICATION: FALL,tachycardia,HX CHF,AFIB,DIABETES,HTN TECHNIQUE: Frontal and lateral projections of the chest obtained and reviewed. Comparison is made to prior examination from 04/21/2021. FINDINGS: Chronic left pleural blunting. Sternotomy wires are present without findings to suggest st ernal dehiscence. There is no pneumothorax suspected. There is no focal acute air space disease. Ther e are bony degenerative changes. IMPRESSION: No acute cardiopulmonary findings. Reviewed, dictated and finalized at location G. LOADER
--- NOTE | ~2021-05-01 | CT_ITS ---
EXAMINATION: CT brain wo [facility] EXAM DATE: 05/01/2021 20:22 INDICATION: Fall and head injury. TECHNIQUE: Spiral CT of the head was performed without contrast. Axial, coronal and sagittal images were reviewed. The dose-length product (DLP) for this examination was 681.00 mGy-cm. The exposure w as tailored according to patient size, and iterative reconstruction (ASIR) was used as additional dos e reduction technique. Comparison is made to prior examination from 04/15/2021. FINDINGS: There is no acute intraparenchymal hemorrhage. No evidence of intraparenchymal brain mass lesion. No evidence of acute infarction. Please note that initial head CT has limited sensitivity f or small or acute infarctions. 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 There is mild periventricula r and subcortical hypodensity, nonspecific but probably related to small vessel ischemic disease. T here is moderate prominence of the sulci and ventricles related to cerebral atrophy. There is intra cranial carotid arteriosclerosis. There are no extra-axial collections. There is no mass effect or midline shift. Patient has had bilateral ocular lens surgery. Soft tissue is unremarkable. There i s left mastoid effusion. IMPRESSION: 1. No acute intracranial findings. 2. Chronic age related findings. Reviewed, dictated and finalized at location G. MENT REMEDIATION CONSULTANT
--- NOTE | 2021-05-01 20:06 | ECG_ITS ---
Measurements Intervals [place] Rate: 132 P: [place]: 0 QRS: -76 QRSD: 157 T: 37 QT: 342 QTc: 507 Interpretive Statements ATRIAL FIBRILLATION WITH RAPID VENTRICULAR RESPONSE RIGHT BUNDLE BRANCH BLOCK LEFT ANTERIOR FASCICULAR BLOCK BASELINE ARTIFACT- I, II, V1-V6 ABNORMAL ECG Electronically Signed On 05-02-2021 6:15:30 PROFESSOR OF COMMUNICATION AND WRITING by Lokesh Smith D.O.
--- NOTE | 2021-05-01 20:17 | PC.NURSE ---
Patient taken to CT via stretcher.
[2021-05-01 20:29] LABS: Alanine Aminotransferase 18 U/L (4-50); Albumin Level 3.1 g/dL (3.5-5.1); Alkaline Phosphatase 77 U/L (38-126); Anion Gap 5 mmol/L (8-16); Aspartate Amino Transferase 73 U/L (17-59); Bilirubin,Total 0.6 mg/dL (0.2-1.3); Blood Urea Nitrogen 67 mg/dL (9-20); Calcium 8.8 mg/dL (8.4-10.2); Carbon Dioxide 20 mmol/L (22-30); Chloride 107 mmol/L (98-107); Estimated Glomerular Filt Rate 23; Glucose 299 mg/dL (65-110); Potassium 4.8 mmol/L (3.4-5.0); Sodium 132 mmol/L (137-145)
[2021-05-01] MEDS: carvediloL 12.5 MG TABLET PO (20:35)
[2021-05-01] MEDS: SODIUM CHLORIDE 0.9% IV 500 ML 250 ML IV CONT (20:35)
--- NOTE | 2021-05-01 20:39 | ED.FALL ---
HPI - Fall General Chief Complaint: Fall Stated Complaint: fall with face injury Time Seen by Provider: 05/01/21 19:50 Source: patient, EMS and RN notes reviewed Limitations: no limitations History of Present Illness HPI Narrative: 75-year-old male presenting to the emergency department for evaluation after having a fall from his bed today. Patient states he was reaching for something and fell forward and had a minor fall from his bed. Patient denies any pain or injury. Patient suspects he did hit his head but did not injure his head. alf sent the patient in for evaluation. Patient is taking Eliquis. Upon arrival in the department patient was tachycardic into the 130s to 140s. Patient denies any complaints. Record does show patient has a history of A. fib. No previous EKGs show the patient being in persistent A. fib. Related Data Home Medications Medication Instructions Recorded Confirmed atorvastatin 40 mg PO HS 02/10/19 05/02/21 calcitriol 0.5 mcg PO MOWEFR 02/10/19 05/02/21 fluticasone propionate 2 spray INTRANASAL DAILY PRN 02/10/19 05/02/21 melatonin 5 mg PO HS PRN 02/10/19 05/02/21 apixaban 2.5 mg tablet 2.5 mg PO BID 10/01/19 05/02/21 tacrolimus 1 mg capsule, 1 mg PO BID cap 12/17/19 05/02/21 immediate-release venlafaxine 75 mg PO HS 05/17/20 05/02/21 brimonidine 1 drp EACH EYE TID 06/24/20 05/02/21 prednisone 5 mg PO DAILY 06/24/20 05/02/21 ferrous sulfate 325 mg (65 mg 325 mg PO DAILY 07/05/20 05/02/21 iron) tablet omeprazole 40 mg capsule,delayed 40 mg PO DAILY cap 07/05/20 05/02/21 release Triphrocaps 1 cap PO DAILY 11/24/20 05/02/21 pyridoxine (vitamin B6) 100 mg PO DAILY 11/24/20 05/02/21 aspirin 81 mg PO DAILY 11/28/20 05/02/21 latanoprost 1 drp EACH EYE HS 11/28/20 05/02/21 docusate sodium [Colace] 100 mg PO BID 03/14/21 05/02/21 polyethylene glycol 3350 [Miralax] 17 g PO BID PRN 03/14/21 05/02/21 insulin regular human 100 unit/mL 1 sliding scale dose SUBCUT 04/05/21 05/02/21 (3 mL) subcutaneous pen USEASDIRECTD Semglee U-100 Insulin 20 unit SUBCUT HS 04/11/21 05/02/21 Lactobacillus acidophilus 1 tablet PO BID 05/02/21 05/02/21 [Acidophilus] carbidopa-levodopa [Sinemet] 1 tablet PO 1100,2100 05/02/21 05/02/21 Allergies Allergy/AdvReac Type Severity Reaction Status Date / Time trimethobenzamide Allergy Severe Loss of Verified 04/12/21 11:13 Consciousness fish oil Allergy Mild Rash Verified 04/12/21 11:13 levofloxacin Allergy Unknown Hives Verified 04/12/21 11:13 metoclopramide AdvReac Severe Other Verified 04/12/21 11:13 ondansetron AdvReac Severe Other Verified 04/12/21 11:13 diphenhydramine AdvReac Unknown aggi Verified 04/12/21 11:13 NSAIDS (Non-Steroidal AdvReac Unknown renal Verified 04/12/21 11:13 Anti-Inflamma insuff Review of Systems Review of Systems: Patient denies any complaints after his ground-level fall. All systems reviewed & are unremarkable except as noted in HPI and below ROS unobtainable: Yes unobtainable due to mental status PMFSH Past Medical History Medical History Afib Anemia BPH (benign prostatic hyperplasia) CHF (congestive heart failure), NYHA class I Echo from 12/02/2020 read as the following 1. Complete two-dimensional, color flow and Doppler transthoracic echocardiogram is performed. 2. Left ventricular chamber dimension is normal. 3. Left ventricular systolic function is normal, estimated at 55-60%. 4. There is mildly increased left ventricular wall thickness. 5. The left ventricular diastolic function is grade II diastolic dysfunction. 6. E/e' 16 is elevated. 7. Right ventricular systolic function is reduced based on abnormal TAPSE 1.1 cm. 8. Left atrial chamber dimension is mildly enlarged. 9. The bioprosthetic aortic valve is not well visualized. 10. The mitral valve has mildly calcified leaflets and mildly calcified annulus. 11. No pulmonary hypertension, estimated pulmon
[2021-05-01 20:40] LABS: Basophils Percent Auto 0.3 % (0.2-1.2); Eosinophils Percent Auto 0.2 % (0-4.4); Hematocrit 34.8 % (42.0-52.0); Hemoglobin 11.6 g/dL (14.0-18.0); Immature Granulocyte Absolute 0.09 K/mm3 (0.00-0.031); Immature Granulocyte Percent A 0.7 % (0-0.5); Lymphocytes Absolute Auto 1.72 K/mm3 (0.9-3.2); Mean Corpuscular HGB Conc 33.3 g/dl (32-36); Mean Corpuscular Hemoglobin 31.6 pg (26-34); Mean Corpuscular Volume 94.8 fl (80-100); Mean Platelet Volume 12.2 fl (7.4-10.4); Monocytes Absolute Auto 0.7 K/mm3 (0.1-0.6); Monocytes Percent Auto 5.4 % (2.6-8.5); Neutrophils Absolute Auto 10.7 K/mm3 (1.3-6.7); Neutrophils Percent Auto 80.4 % (45.5-73.1); Platelet Count Result 180 k/mm3 (150-375); Red Blood Count 3.67 M/mm3 (4.6-6.20); Red Cell Distribution Width 16.8 % (11.5-14.5); White Blood Count 13.3 K/mm3 (4.5-10.0)
[2021-05-01] MEDS: dilTIAZem HCl INJ 25 MG/5 ML VIAL 10 MG IV PUSH (21:01)
--- NOTE | 2021-05-01 21:02 | PC.NURSE ---
Patient in afib with RVR, seems to be new, ERP notified and orders received.
[2021-05-01] MEDS: dilTIAZem 100 MG/100 ML 100 MG/100 ML BAG IV CONT (21:22)
[2021-05-01 21:48] LABS: Troponin I 0.076 ng/mL (0.000-0.034)
--- NOTE | 2021-05-01 22:04 | PC.NURSE ---
VORB per titrate diltiazem to 10.
--- NOTE | 2021-05-01 22:38 | PC.NURSE ---
VORB titrate up the diltiazem to 15.
[2021-05-01 22:44] LABS: SARS-CoV-2 RNA PCR Positive
[2021-05-01 23:20] LABS: Troponin I 0.073 ng/mL (0.000-0.034)
--- NOTE | 2021-05-01 23:37 | PM.IMHP ---
H&P: HPI History of Present Illness Date/Time: 05/01/21 23:37 Chief Complaint: Fall. Narrative: This is a 75-year-old male with past medical history significant for diastolic heart failure type 2, Parkinson's disease, atrial fibrillation, aortic stenosis status post TAVR, chronic kidney disease, coronary artery disease, diabetes, gastroparesis, stroke, gout, hypertension, seizure disorder, subdural hematoma, peripheral vascular disease, benign prostatic hyperplasia. Patient is [place] he was brought for evaluation after the patient fell while trying to reach something in out of his bed. He preliminary workup was negative for any injuries. Patient is poor historian but according to medical records and emergency room patient was just recently discharged from the hospital. He was found to have a fever with rapid ventricular response and has been started on Cardizem drip. Patient is been admitted to IMU for further evaluation management and treatment. Review of Systems Review of Systems: ROS unobtainable: Yes unobtainable due to medical condition (Dementia) [facility] Past Medical History Medical History Afib Anemia BPH (benign prostatic hyperplasia) CHF (congestive heart failure), NYHA class I Echo from 12/02/2020 read as the following 1. Complete two-dimensional, color flow and Doppler transthoracic echocardiogram is performed. 2. Left ventricular chamber dimension is normal. 3. Left ventricular systolic function is normal, estimated at 55-60%. 4. There is mildly increased left ventricular wall thickness. 5. The left ventricular diastolic function is grade II diastolic dysfunction. 6. E/e' 16 is elevated. 7. Right ventricular systolic function is reduced based on abnormal TAPSE 1.1 cm. 8. Left atrial chamber dimension is mildly enlarged. 9. The bioprosthetic aortic valve is not well visualized. 10. The mitral valve has mildly calcified leaflets and mildly calcified annulus. 11. No pulmonary hypertension, estimated pulmonary arterial systolic pressure is 13 mmHg. Chronic kidney disease, stage 4 (severe) Coronary artery disease Depression Diabetes Dry mouth Gastroparesis Stage 4 Glaucoma Gout History of CVA (cerebrovascular accident) As per CT read History of [place] (myocardial infarction) with bypass February 2008 History of transcatheter aortic valve replacement (TAVR) 06/01/2020 HLD (hyperlipidemia) HTN (hypertension) Parkinson's disease Peripheral vascular disease Seizures Trauma induced following fall Subdural hematoma From fall on 24 December 2018 Surgical History Surgical History History of biopsy rt shoulder and lt palm History of kidney transplant 2008 History of thoracentesis Hx of CABG 2007, followed by lengthy hospital stay and a second surgery x4 Renal transplant recipient 2008 Status post transcatheter aortic valve replacement (TAVR) using bioprosthesis Family History Family History Father Family history of malignant neoplasm of stomach Mother Diabetes mellitus Grandparent Family history of cardiovascular disease Diabetes mellitus Sibling Crohn's disease Brain aneurysm Social History Social History Social History: The patient lives with his . He is at home nursing care. 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 He has 3 children. The is the durable power trial attorney for healthcare the patient is a full code. Patient is a lifelong nonsmoker does not use any marijuana alcohol or illicit drugs. Primary care physician: Dr. Charlie Ford Code status: Full code Healthcare power of trial attorney: Smoking status: Never smoker Second hand tobacco smoke exposure: No Alcohol intake: never Drinks per week: 0 Substance use: never Substance use type: does not use Ge
[2021-05-02] VITALS (18 sets, daily range): BP systolic 137–152; BP diastolic 67–87; PULSE 73–116; RESP 17–22; TEMP 36.5–36.8; O2SAT 97–100; BMI 29.3
--- NOTE | 2021-05-02 01:04 | ADMGEN ---
This patient, Maris Jackman, was admitted to IMU Room 204-01. Patient/family oriented to hospital policies and general routines including ID bracelet, bed and alarms, visiting hours, pain management, procedures, bathroom and other care routines, personal items, smoking policy, room service/diet, and visiting hours. Information on how to activate the Rapid Response Team has been discussed. Patient/Family are encouraged to report perceived risks to care and to ask questions if they do not understand what they are told or what they should do.
[2021-05-02 02:27] LABS: Troponin I 0.089 ng/mL (0.000-0.034)
[2021-05-02] MEDS: dilTIAZem 100 MG/100 ML 100 MG/100 ML BAG IV CONT (04:46)
--- NOTE | 2021-05-02 06:16 | PHAR ---
PHARMACY VERIFIED HOME MED: *HOME MED* Tacrolimus 1 mg capsule TAKE 1 CAPSULE BY MOUTH TWICE DAILY
--- NOTE | 2021-05-02 10:00 | PM.IMPN ---
Progress Note: A&P Assessment and Plan (1) Atrial fibrillation with rapid ventricular response: Code(s): I48.91 - Unspecified atrial fibrillation Status: Acute Assessment and Plan: Continue Cardizem drip Continuous telemetry: looks to be in a rate controlled a fib Continue to monitor Cardiology consult thank you for your help VS are stable Telemonitor EKG shows Afib RVR 132 (2) Elevated troponin: Code(s): R77.8 - Other specified abnormalities of plasma proteins Status: Acute Assessment and Plan: Likely secondary to chronic kidney disease and atrial fibrillation 1: 0.076, 0.073, 0.089, which are flat Cardiology on the case Continue to monitor Chest xray shows no acute cardiopulmonary findings (3) Status post transcatheter aortic valve replacement (TAVR) using bioprosthesis: Code(s): Z95.3 - Presence of xenogenic heart valve Status: Acute Assessment and Plan: Stable Continue to monitor (4) Parkinson disease: Code(s): G20 - Parkinson's disease Status: Acute Assessment and Plan: Unchanged Continue carbidopa levodopa (5) Orthostatic hypotension: Code(s): I95.1 - Orthostatic hypotension Status: Acute Assessment and Plan: Unchanged Order orthostatic pressure No antihypertensives on board (6) Chronic kidney disease, stage 4 (severe): Code(s): N18.4 - Chronic kidney disease, stage 4 (severe) Status: Acute Assessment and Plan: Continue to monitor Stable (7) CHF (congestive heart failure), NYHA class I: Code(s): I50.9 - Heart failure, unspecified Status: Chronic Assessment and Plan: Appears euvolemic Daily intake and output Continue to monitor (8) COVID: Code(s): U07.1 - COVID-19 Status: Acute Assessment and Plan: This could be an old finding since the patient tested positive back in november No infiltrates on chest x-ray Continue to monitor Supportive care (9) Fall: Code(s): W19.XXXA - Unspecified fall, initial encounter Status: Acute Assessment and Plan: For precautions. No injuries Time Spent With Patient Time with patient: Greater than 35 minutes Subjective Date/time seen: 05/02/21 10:00 Interval history: Date/Time: 05/01/21 23:37 Narrative: This is a 75-year-old male with past medical history significant for diastolic heart failure type 2, Parkinson's disease, atrial fibrillation, aortic stenosis status post TAVR, chronic kidney disease, coronary artery disease, diabetes, gastroparesis, stroke, gout, hypertension, seizure disorder, subdural hematoma, peripheral vascular disease, benign prostatic hyperplasia. Patient is a [facility] resident he was brought for evaluation after the patient fell while trying to reach something in out of his bed. He preliminary workup was negative for any injuries. Patient is poor historian but according to medical records and emergency room patient was just recently discharged from the hospital. He was found to have a fever with rapid ventricular response and has been started on Cardizem drip. Patient is been admitted to IMU for further evaluation management and treatment. Date/Time 05/02/21 1000 Patient is lying in bed. Patient states that he feels okay. Patient denies any pain, nausea, vomiting, diarrhea, constipation, weakness, fatigue. Patient did say that he had a little bit chest pain which is mostly epigastric and stays right there with no radiation. He denies any shortness of breath or any sweats with that pain. Review of Systems Review of Systems: All systems reviewed & are unremarkable except as noted in HPI and below Exam Const: General: cooperative, comfortable, no acute distress, well developed, alert, awake and Physically active Nutritional Appearance: average body habitus Orientation/consciousness: oriented to person and oriented to place HENMT: Head: normal to
[2021-05-02] MEDS: PYRIDOXINE HCL 50 MG TABLET 100 MG PO (12:53)
[2021-05-02] MEDS: MIDODRINE HCL 2.5 MG TABLET 5 MG PO ×3 (12:54→18:04)
[2021-05-02] MEDS: FERROUS SULFATE 324 MG TABLET PO (12:54)
[2021-05-02] MEDS: VITAMIN B CMPLX/VIT C/FOLIC AC 1 CAPSULE 1 CAP PO (12:54)
[2021-05-02] MEDS: PANTOPRAZOLE 40 MG TABLET PO (12:54)
[2021-05-02] MEDS: predniSONE 5 MG TABLET PO (12:55)
[2021-05-02] MEDS: calcitrioL 0.25 MCG CAPSULE 0.5 MCG PO (12:55)
[2021-05-02] MEDS: ACIDOPHILUS/BULGARICUS CHEWABLE TABLET 1 TABLET PO ×2 (12:55→17:53)
[2021-05-02] MEDS: DOCUSATE SODIUM 100 MG CAPSULE PO ×2 (12:56→17:51)
[2021-05-02] MEDS: MICONAZOLE NITRATE 2% CREAM 30 GM TUBE 1 APPLIC TOPICAL ×2 (12:56→22:14)
[2021-05-02] MEDS: BRIMONIDINE TARTRATE 0.2% OP SOLN 5 ML BTL 1 DROP EACH EYE ×3 (12:56→18:03)
[2021-05-02] MEDS: CARBIDOPA/LEVODOPA 25/250 MG TABLET 1 TABLET PO ×2 (12:58→17:53)
[2021-05-02] MEDS: ASPIRIN 81 MG ENTERIC TABLET PO (12:58)
[2021-05-02] MEDS: CARBIDOPA/LEVODOPA 25/100 MG TABLET 1 TABLET PO ×2 (13:00→22:16)
[2021-05-02] MEDS: allopurinoL 150 MG TABLET PO (13:00)
[2021-05-02] MEDS: INSULIN GLARGINE (*BKC) 100 UNITS/ML 11 UNITS SUB-Q (13:03)
[2021-05-02] MEDS: INSULIN ASPART (*BKC) 100 UNITS/ML SUB-Q ×2 (13:04→17:53)
[2021-05-02 13:11] LABS: Glucose Point of Care 215 mg/dl (65-105)
--- NOTE | 2021-05-02 14:46 | PM.CNCAR ---
Assessment and Plan Additional Plan 75-year-old man with a complicated background of coronary disease, remote history of surgical revascularization in more recent history of TAVR procedure all done at [facility]. He was in the hospital here recently with problematic orthostasis. He is now readmitted after a fall from his bed at his nursing facility and noted to be in atrial fib with RVR. He is anticoagulated with apixaban. I am going to stop the diltiazem and place him on an oral loading regimen of amiodarone in hopes of restoring sinus rhythm. Will follow the patient with you while he is in the hospital. Mateusz Erwin MD [facility] History of Present Illness History of Present Illness Consult date/time: 05/02/21 14:46 Consult reason: atrial fibrillation Reason For Visit: atrial fib with RVR Narrative: This is a 75-year-old man who I have seen recently in the hospital here at [facility] and I am seeing him this afternoon at the request of the hospitalist for assistance with the evaluation and management of atrial fibrillation. The patient previously receives all of his medical care and cardiac care at [facility]. He has a history of coronary artery disease and aortic valve disease. Patient underwent a coronary bypass operation in the remote past and more recently was found to have a severe cardiomyopathy with critical aortic valve stenosis and underwent TAVR procedure within the last year and a half at the [facility] with an excellent result. Left ventricular systolic function improved nicely essentially normalized following his TAVR procedure and he was doing very well. According to the records he has a history of paroxysmal atrial fibrillation and does take apixaban. The patient also has an important history of renal transplantation. We saw the patient recently in the hospital here because of problematic/symptomatic orthostasis. There are records in the chart for at least 6 months her most of this past year indicating that orthostasis has been a significant problem. When I saw him I last month of essentially all medications that could lower blood pressure were discontinued and he was also placed on some midodrine. I do not believe we saw him in atrial fibrillation during that hospitalization although interestingly there is not a 12 lead EKG on the chart from that hospital stay. There was 1 from as an outpatient just prior to that which showed sinus rhythm with right bundle branch block. He was brought to the hospital yesterday from the residential facility where he resides because he fell out of his bed. Apparently it is standard to bring patient to the hospital because of a fall like this. When he was being evaluated was found that he was tachycardic and he was noted to be in atrial fib with rapid ventricular response. Of course he was bolused with and placed on IV diltiazem which has controlled his heart rate nicely. He does not indicate that he was aware of the sense of any tachycardia or palpitations prior to coming in the hospital. In this setting I am seeing him in consultation. Of note in the emergency room he was also found to be febrile he was swabbed for coronavirus and that came back positive. Review of Systems Constitutional: Constitutional: Reports weakness Eyes: Eyes: Reports no additional eye complaints ENT: Reports system reviewed and no additional complaints, except as documented Cardiovascular: Cardiovascular: Reports no additional cardiovascular complaints Respiratory: Respiratory: Reports dyspnea on exertion Gastrointestinal: Gastrointestinal: Reports no additional gastrointestinal complaints Musculoskeletal: Musculoskeletal: Reports no additional musculoskeletal complaints Integumentary/Breasts: Skin/Breast: Reports system reviewed and no additional complaints, except as docu Neurologic: Reports system reviewed and no additional complaints, except as documented
[2021-05-02] MEDS: AMIODARONE HCL 200 MG TABLET 400 MG PO ×2 (17:52→22:15)
[2021-05-02] MEDS: APIXABAN 2.5 MG TABLET PO (17:53)
[2021-05-02 20:23] LABS: Glucose Point of Care 220 mg/dl (65-105)
[2021-05-02 20:24] LABS: Glucose Point of Care 218 mg/dl (65-105)
[2021-05-02] MEDS: LATANOPROST 0.005% OP SOLN 2.5 ML BTL 1 DROP EACH EYE (22:14)
[2021-05-02] MEDS: VENLAFAXINE HCL XR 75 MG CAP.ER.24H PO (22:16)
[2021-05-02] MEDS: ATORVASTATIN 40 MG TABLET PO (22:16)
[2021-05-02] MEDS: TAMSULOSIN HCL 0.4 MG CAPSULE PO (22:17)
[2021-05-02] MEDS: INSULIN GLARGINE (*BKC) 100 UNITS/ML 20 UNITS SUB-Q (22:17)
[2021-05-03] VITALS (18 sets, daily range): BP systolic 125–142; BP diastolic 54–99; PULSE 69–148; RESP 18–22; TEMP 36.1–36.7; O2SAT 96–100
[2021-05-03] MEDS: dilTIAZem 100 MG/100 ML 100 MG/100 ML BAG IV CONT (00:50)
[2021-05-03] MEDS: dilTIAZem HCl INJ 25 MG/5 ML VIAL 10 MG IV PUSH (00:50)
[2021-05-03 02:03] LABS: Add Urine Microscopic? YES; Appearance Urine Turbid (Clear); Bacteria Urine 4+ /hpf; Bilirubin Urine Negative (Negative); Blood Urine 1+ (Negative); Budding Yeast Urine Present /hpf; Color Urine Yellow (Yellow); Glucose Urine UA 1+ mg/dL (Negative); Ketones Urine Negative (Negative); Leukocyte Esterase Ur 3+ LEU/UL (Negative); Mucus Urine Rare /lpf; Nitrate Urine Negative (Negative); Protein Urine 3+ mg/dL (Negative); RBC Urine >75 /hpf (0-2); Specific Grav Ur 1.018 (1.001-1.035); Squamous Epithelial Cell Urine Many /hpf (Few); Urobilinogen Urine Negative mg/dL (<2.0); WBC Clumps Urine Present /HPF; WBC Urine >75 /hpf
[2021-05-03 05:15] LABS: Basophils Percent Auto 0.4 % (0.2-1.2); Eosinophils Absolute Auto 0.1 K/mm3 (0-0.3); Eosinophils Percent Auto 0.9 % (0-4.4); Hematocrit 35.7 % (42.0-52.0); Hemoglobin 11.7 g/dL (14.0-18.0); Immature Granulocyte Absolute 0.09 K/mm3 (0.00-0.031); Immature Granulocyte Percent A 0.8 % (0-0.5); Lymphocytes Absolute Auto 2.61 K/mm3 (0.9-3.2); Mean Corpuscular HGB Conc 32.8 g/dl (32-36); Mean Corpuscular Hemoglobin 31.1 pg (26-34); Mean Corpuscular Volume 94.9 fl (80-100); Monocytes Absolute Auto 0.5 K/mm3 (0.1-0.6); Monocytes Percent Auto 4.7 % (2.6-8.5); Neutrophils Percent Auto 70.2 % (45.5-73.1); Platelet Count Result 182 k/mm3 (150-375); Red Blood Count 3.76 M/mm3 (4.6-6.20); Red Cell Distribution Width 16.9 % (11.5-14.5); White Blood Count 11.4 K/mm3 (4.5-10.0)
[2021-05-03 05:25] LABS: Alanine Aminotransferase 17 U/L (4-50); Albumin Level 2.9 g/dL (3.5-5.1); Alkaline Phosphatase 79 U/L (38-126); Anion Gap 5 mmol/L (8-16); Aspartate Amino Transferase 47 U/L (17-59); Bilirubin,Total 0.7 mg/dL (0.2-1.3); Blood Urea Nitrogen 71 mg/dL (9-20); Calcium 8.7 mg/dL (8.4-10.2); Carbon Dioxide 18 mmol/L (22-30); Chloride 111 mmol/L (98-107); Estimated CRCL calculation 21 ml/min; Estimated Glomerular Filt Rate 22; Glucose 162 mg/dL (65-110); Potassium 4.7 mmol/L (3.4-5.0); Sodium 134 mmol/L (137-145)
--- NOTE | 2021-05-03 06:15 | PHAR ---
MIRIAN ROOT 550MG CAPSULE TAKE 550MG BY MOUTH TWICE DAILY & Motegrity 2 mg tablet TAKE ONE TABLET BY MOUTH ONCE A DAY VERIFIED IN PHARMACY AND SENT BACK TO [facility]
[2021-05-03 08:32] LABS: Glucose Point of Care 132 mg/dl (65-105)
[2021-05-03] MEDS: VITAMIN B CMPLX/VIT C/FOLIC AC 1 CAPSULE 1 CAP PO (09:16)
[2021-05-03] MEDS: MIDODRINE HCL 2.5 MG TABLET 5 MG PO ×3 (09:17→17:03)
[2021-05-03] MEDS: INSULIN GLARGINE (*BKC) 100 UNITS/ML 11 UNITS SUB-Q (09:17)
[2021-05-03] MEDS: MICONAZOLE NITRATE 2% CREAM 30 GM TUBE 1 APPLIC TOPICAL ×2 (09:17→21:47)
[2021-05-03] MEDS: PANTOPRAZOLE 40 MG TABLET PO (09:17)
[2021-05-03] MEDS: PYRIDOXINE HCL 50 MG TABLET 100 MG PO (09:17)
[2021-05-03] MEDS: DOCUSATE SODIUM 100 MG CAPSULE PO ×2 (09:18→17:07)
[2021-05-03] MEDS: ASPIRIN 81 MG ENTERIC TABLET PO (09:19)
[2021-05-03] MEDS: CARBIDOPA/LEVODOPA 25/250 MG TABLET 1 TABLET PO ×2 (09:19→17:08)
[2021-05-03] MEDS: APIXABAN 2.5 MG TABLET PO ×2 (09:19→17:01)
[2021-05-03] MEDS: BRIMONIDINE TARTRATE 0.2% OP SOLN 5 ML BTL 1 DROP EACH EYE ×3 (09:19→17:08)
[2021-05-03] MEDS: FERROUS SULFATE 324 MG TABLET PO (09:20)
[2021-05-03] MEDS: allopurinoL 150 MG TABLET PO (09:20)
[2021-05-03] MEDS: predniSONE 5 MG TABLET PO (09:20)
[2021-05-03] MEDS: ACIDOPHILUS/BULGARICUS CHEWABLE TABLET 1 TABLET PO ×2 (09:20→17:02)
[2021-05-03] MEDS: CARBIDOPA/LEVODOPA 25/100 MG TABLET 2 TABLET PO ×2 (11:17→21:41)
--- NOTE | 2021-05-03 11:27 | PM.PNCARD ---
Progress Note: A&P Assessment and Plan (1) COVID: Code(s): U07.1 - COVID-19 Status: Acute Assessment and Plan: Per hospitalist (2) Parkinson disease: Code(s): G20 - Parkinson's disease Status: Acute (3) Status post transcatheter aortic valve replacement (TAVR) using bioprosthesis: Code(s): Z95.3 - Presence of xenogenic heart valve Status: Acute Assessment and Plan: Function normally (4) Atrial fibrillation with rapid ventricular response: Code(s): I48.91 - Unspecified atrial fibrillation Status: Acute Assessment and Plan: In atrial flutter with controlled heart rate. Will discontinue her diltiazem. Continue amiodarone. Diltiazem and tacrolimus do interact. If heart rate control is needed, would add metoprolol Subjective Date/time seen: 05/03/21 11:27 Interval history: Narrative: This is a 75-year-old male with past medical history significant for diastolic heart failure type 2, Parkinson's disease, atrial fibrillation, aortic stenosis status post TAVR, chronic kidney disease, coronary artery disease, diabetes, gastroparesis, stroke, gout, hypertension, seizure disorder, subdural hematoma, peripheral vascular disease, benign prostatic hyperplasia. Patient is a [facility] resident he was brought for evaluation after the patient fell while trying to reach something in out of his bed. He preliminary workup was negative for any injuries. Patient is poor historian but according to medical records and emergency room patient was just recently discharged from the hospital. He was found to have a fever with rapid ventricular response and has been started on Cardizem drip. Date of service 05/03/2021: Lying in bed comfortably. No complaints of chest pain or shortness of breath Review of Systems Constitutional: Constitutional: Reports weakness Eyes: Eyes: Reports no additional eye complaints ENT: Reports system reviewed and no additional complaints, except as documented Cardiovascular: Cardiovascular: Reports no additional cardiovascular complaints and Reports dyspnea on exertion Respiratory: Respiratory: Reports dyspnea on exertion Gastrointestinal: Gastrointestinal: Reports no additional gastrointestinal complaints Musculoskeletal: Musculoskeletal: Reports no additional musculoskeletal complaints Integumentary/Breasts: Skin/Breast: Reports system reviewed and no additional complaints, except as docu Neurologic: Reports system reviewed and no additional complaints, except as documented and Reports weakness Psychiatric: Psychiatric: Reports no additional psychiatric complaints Endocrine: Endocrine: Reports no additional endocrine complaints Hematologic/Lymphatic: Hematologic/Lymphatic: Reports no additional hematologic/lymphatic complaints Allergic/Immunologic: Allergic/Immunologic: Reports no additional allergic/immunologic complaints Exam Const: General: comfortable and no acute distress Other: Pleasant tall elderly man no distress HENMT: Mouth: Yes moist mucous membranes Eyes: Sclera: sclerae normal Neck: Neck: supple and no JVD Resp: Effort & Inspection: normal respiratory effort Cardio: Rhythm: abnormal rhythm irregularly irregular Skin: General skin exam: normal color Neuro: Cognition (Neuro): normal cognition Extrem: General: normal to inspection Objective Data Vital Signs Vital Signs: Vital Signs - 24 hr 05/02/21 12:00 05/02/21 14:00 05/02/21 16:00 Temperature 36.8 C 36.6 C Pulse Rate 87 81 94 Respiratory Rate 20 22 H Blood Pressure 143/79 H 141/67 H Pulse Oximetry 97 97 05/02/21 17:52 05/02/21 18:00 05/02/21 20:00 Temperature 36.6 C Pulse Rate 100 98 106 H Respiratory Rate 20 Blood Pressure 152/77 H Pulse Oximetry 97 05/02/21 22:00 05/03/21 00:00 05/03/21 02:00 Temperature 36.6 C Pulse Rate 112 H 147 H 97 Respiratory Rate 18 Blood Pressure 142/99 H Pulse Oximetry 99 0
[2021-05-03 12:27] LABS: Glucose Point of Care 173 mg/dl (65-105)
[2021-05-03] MEDS: AMIODARONE HCL 200 MG TABLET 400 MG PO ×2 (13:02→21:48)
[2021-05-03] MEDS: METOPROLOL TARTRATE 25 MG TABLET PO (13:03)
--- NOTE | 2021-05-03 13:39 | PM.IMPN ---
Progress Note: A&P Assessment and Plan (1) Atrial fibrillation with rapid ventricular response: Code(s): I48.91 - Unspecified atrial fibrillation Status: Acute Assessment and Plan: Cardizem drip discontinued per cardiology Amiodarone has also been added Continuous telemetry: looks to be in a rate controlled a fib Continue to monitor Cardiology consult thank you for your help VS are stable Telemonitor EKG shows Afib RVR 132 (2) Elevated troponin: Code(s): R77.8 - Other specified abnormalities of plasma proteins Status: Acute Assessment and Plan: Likely secondary to chronic kidney disease and atrial fibrillation 1: 0.076, 0.073, 0.089, which are flat Cardiology on the case Continue to monitor Chest xray shows no acute cardiopulmonary findings (3) Status post transcatheter aortic valve replacement (TAVR) using bioprosthesis: Code(s): Z95.3 - Presence of xenogenic heart valve Status: Acute Assessment and Plan: Stable Continue to monitor (4) Parkinson disease: Code(s): G20 - Parkinson's disease Status: Acute Assessment and Plan: Unchanged Continue carbidopa levodopa (5) Orthostatic hypotension: Code(s): I95.1 - Orthostatic hypotension Status: Acute Assessment and Plan: Unchanged Order orthostatic pressure No antihypertensives on board (6) Chronic kidney disease, stage 4 (severe): Code(s): N18.4 - Chronic kidney disease, stage 4 (severe) Status: Acute Assessment and Plan: Continue to monitor Stable (7) CHF (congestive heart failure), NYHA class I: Code(s): I50.9 - Heart failure, unspecified Status: Chronic Assessment and Plan: Appears euvolemic Daily intake and output Continue to monitor (8) COVID: Code(s): U07.1 - COVID-19 Status: Acute Assessment and Plan: This could be an old finding since the patient tested positive back in november No infiltrates on chest x-ray Continue to monitor Supportive care (9) Fall: Code(s): W19.XXXA - Unspecified fall, initial encounter Status: Acute Assessment and Plan: Fall precautions. No injuries Time Spent With Patient Time with patient: Greater than 35 minutes Subjective Date/time seen: 05/03/21 13:39 Interval history: Date/Time: 05/01/21 23:37 Narrative: This is a 75-year-old male with past medical history significant for diastolic heart failure type 2, Parkinson's disease, atrial fibrillation, aortic stenosis status post TAVR, chronic kidney disease, coronary artery disease, diabetes, gastroparesis, stroke, gout, hypertension, seizure disorder, subdural hematoma, peripheral vascular disease, benign prostatic hyperplasia. Patient is a senior living resident he was brought for evaluation after the patient fell while trying to reach something in out of his bed. He preliminary workup was negative for any injuries. Patient is poor historian but according to medical records and emergency room patient was just recently discharged from the hospital. He was found to have a fever with rapid ventricular response and has been started on Cardizem drip. Patient is been admitted to IMU for further evaluation management and treatment. Date/Time 05/02/21 1000 Patient is lying in bed. Patient states that he feels okay. Patient denies any pain, nausea, vomiting, diarrhea, constipation, weakness, fatigue. Patient did say that he had a little bit chest pain which is mostly epigastric and stays right there with no radiation. He denies any shortness of breath or any sweats with that pain. Date/Time 05/03/21 1339 Patient was sleeping when I went into the room. He stated that he was weak, and tired today. He otherwise was ok. He denied chest pain, shortness of breath, nausea, vomiting, diarrhea, constipation, sweats, fevers, and chills Review of Systems Review of Systems: All systems reviewed & are
[2021-05-03] MEDS: INSULIN ASPART (*BKC) 100 UNITS/ML SUB-Q (17:03)
[2021-05-03 17:20] LABS: Glucose Point of Care 268 mg/dl (65-105)
[2021-05-03 20:42] LABS: Glucose Point of Care 248 mg/dl (65-105)
[2021-05-03] MEDS: TAMSULOSIN HCL 0.4 MG CAPSULE PO (21:41)
[2021-05-03] MEDS: ATORVASTATIN 40 MG TABLET PO (21:41)
[2021-05-03] MEDS: INSULIN GLARGINE (*BKC) 100 UNITS/ML 20 UNITS SUB-Q (21:42)
[2021-05-03] MEDS: LATANOPROST 0.005% OP SOLN 2.5 ML BTL 1 DROP EACH EYE (21:42)
[2021-05-03] MEDS: VENLAFAXINE HCL XR 75 MG CAP.ER.24H PO (22:27)
[2021-05-04] VITALS (14 sets, daily range): BP systolic 112–145; BP diastolic 68–95; PULSE 107–137; RESP 20–22; TEMP 36.1–37.1; O2SAT 97–100
[2021-05-04 05:20] LABS: Basophils Percent Auto 0.4 % (0.2-1.2); Eosinophils Absolute Auto 0.1 K/mm3 (0-0.3); Eosinophils Percent Auto 0.9 % (0-4.4); Hematocrit 34.3 % (42.0-52.0); Hemoglobin 11.4 g/dL (14.0-18.0); Immature Granulocyte Percent A 0.9 % (0-0.5); Lymphocytes Absolute Auto 2.72 K/mm3 (0.9-3.2); Lymphocytes Percent Auto 25.7 % (18.3-44.2); Mean Corpuscular HGB Conc 33.2 g/dl (32-36); Mean Corpuscular Hemoglobin 31.2 pg (26-34); Mean Platelet Volume 11.3 fl (7.4-10.4); Monocytes Absolute Auto 0.6 K/mm3 (0.1-0.6); Monocytes Percent Auto 6.1 % (2.6-8.5); Platelet Count Result 178 k/mm3 (150-375); Red Blood Count 3.65 M/mm3 (4.6-6.20); Red Cell Distribution Width 16.6 % (11.5-14.5); White Blood Count 10.6 K/mm3 (4.5-10.0)
[2021-05-04 05:31] LABS: Alanine Aminotransferase 8 U/L (4-50); Albumin Level 2.7 g/dL (3.5-5.1); Alkaline Phosphatase 64 U/L (38-126); Anion Gap 4 mmol/L (8-16); Aspartate Amino Transferase 22 U/L (17-59); Bilirubin,Total 0.5 mg/dL (0.2-1.3); Blood Urea Nitrogen 75 mg/dL (9-20); Calcium 8.5 mg/dL (8.4-10.2); Carbon Dioxide 17 mmol/L (22-30); Chloride 111 mmol/L (98-107); Estimated CRCL calculation 21 ml/min; Estimated Glomerular Filt Rate 22; Glucose 145 mg/dL (65-110); Potassium 4.7 mmol/L (3.4-5.0); Sodium 132 mmol/L (137-145)
[2021-05-04] MEDS: AMIODARONE HCL 200 MG TABLET 400 MG PO ×3 (06:28→22:18)
[2021-05-04 08:56] LABS: Glucose Point of Care 99 mg/dl (65-105)
[2021-05-04] MEDS: CARBIDOPA/LEVODOPA 25/250 MG TABLET 1 TABLET PO ×2 (08:56→18:04)
[2021-05-04] MEDS: allopurinoL 150 MG TABLET PO (08:56)
[2021-05-04] MEDS: ASPIRIN 81 MG ENTERIC TABLET PO (08:57)
[2021-05-04] MEDS: MIDODRINE HCL 2.5 MG TABLET 5 MG PO ×3 (08:57→17:54)
[2021-05-04] MEDS: APIXABAN 2.5 MG TABLET PO ×2 (08:57→17:55)
[2021-05-04] MEDS: FERROUS SULFATE 324 MG TABLET PO (08:59)
[2021-05-04] MEDS: ACIDOPHILUS/BULGARICUS CHEWABLE TABLET 1 TABLET PO ×2 (08:59→17:55)
[2021-05-04] MEDS: BRIMONIDINE TARTRATE 0.2% OP SOLN 5 ML BTL 1 DROP EACH EYE ×3 (08:59→18:05)
[2021-05-04] MEDS: calcitrioL 0.25 MCG CAPSULE 0.5 MCG PO (08:59)
[2021-05-04] MEDS: DOCUSATE SODIUM 100 MG CAPSULE PO ×2 (08:59→18:00)
[2021-05-04] MEDS: PANTOPRAZOLE 40 MG TABLET PO (08:59)
[2021-05-04] MEDS: MICONAZOLE NITRATE 2% CREAM 30 GM TUBE 1 APPLIC TOPICAL ×2 (09:05→22:18)
[2021-05-04] MEDS: INSULIN GLARGINE (*BKC) 100 UNITS/ML 11 UNITS SUB-Q (09:08)
[2021-05-04] MEDS: VITAMIN B CMPLX/VIT C/FOLIC AC 1 CAPSULE 1 CAP PO (09:19)
[2021-05-04] MEDS: PYRIDOXINE HCL 50 MG TABLET 100 MG PO (09:19)
[2021-05-04] MEDS: predniSONE 5 MG TABLET PO (09:19)
--- NOTE | 2021-05-04 10:15 | PM.PNCARD ---
Progress Note: A&P Assessment and Plan (1) COVID: Code(s): U07.1 - COVID-19 Status: Acute Assessment and Plan: Per hospitalist (2) Parkinson disease: Code(s): G20 - Parkinson's disease Status: Acute (3) Status post transcatheter aortic valve replacement (TAVR) using bioprosthesis: Code(s): Z95.3 - Presence of xenogenic heart valve Status: Acute Assessment and Plan: Functioning normally (4) Atrial fibrillation with rapid ventricular response: Code(s): I48.91 - Unspecified atrial fibrillation Status: Acute Assessment and Plan: Continue amiodarone. Will add metoprolol 25 mg p.o. b.i.d.. Subjective Date/time seen: 05/04/21 10:15 Interval history: Narrative: This is a 75-year-old male with past medical history significant for diastolic heart failure type 2, Parkinson's disease, atrial fibrillation, aortic stenosis status post TAVR, chronic kidney disease, coronary artery disease, diabetes, gastroparesis, stroke, gout, hypertension, seizure disorder, subdural hematoma, peripheral vascular disease, benign prostatic hyperplasia. Patient is a [facility] resident he was brought for evaluation after the patient fell while trying to reach something in out of his bed. He preliminary workup was negative for any injuries. Patient is poor historian but according to medical records and emergency room patient was just recently discharged from the hospital. He was found to have a fever with rapid ventricular response and has been started on Cardizem drip. Date of service 05/03/2021: Lying in bed comfortably. No complaints of chest pain or shortness of breath Date of service 05/04/2021: Still does not feel very well but no active complaints of chest pain or shortness of breath Review of Systems Constitutional: Constitutional: Reports weakness Eyes: Eyes: Reports no additional eye complaints ENT: Reports system reviewed and no additional complaints, except as documented Cardiovascular: Cardiovascular: Reports no additional cardiovascular complaints and Reports dyspnea on exertion Respiratory: Respiratory: Reports dyspnea on exertion Gastrointestinal: Gastrointestinal: Reports no additional gastrointestinal complaints Musculoskeletal: Musculoskeletal: Reports no additional musculoskeletal complaints Integumentary/Breasts: Skin/Breast: Reports system reviewed and no additional complaints, except as docu Neurologic: Reports system reviewed and no additional complaints, except as documented and Reports weakness Psychiatric: Psychiatric: Reports no additional psychiatric complaints Endocrine: Endocrine: Reports no additional endocrine complaints Hematologic/Lymphatic: Hematologic/Lymphatic: Reports no additional hematologic/lymphatic complaints Allergic/Immunologic: Allergic/Immunologic: Reports no additional allergic/immunologic complaints Exam Const: General: comfortable and no acute distress Other: Pleasant tall elderly man no distress HENMT: Mouth: Yes moist mucous membranes Eyes: Sclera: sclerae normal Pupils: Equal, round and reactive pupils present Neck: Neck: supple and no JVD Resp: Effort & Inspection: normal respiratory effort Auscultation: clear to auscultation bilaterally Cardio: Rhythm: abnormal rhythm irregularly irregular GI: Auscultation: normal bowel sounds Skin: General skin exam: normal color Neuro: Cranial nerves: Yes Equal, round and reactive pupils present Cognition (Neuro): normal cognition Other: Patient is alert and oriented does not have great understanding as to why he was hospitalized again yesterday Extrem: General: normal to inspection Objective Data Vital Signs Vital Signs: Vital Signs - 24 hr 05/03/21 12:00 05/03/21 12:42 05/03/21 13:02 Temperature 36.1 C L Pulse Rate 103 H 92 93 Respiratory Rate 20 Blood Pressure 127/54 L Pulse Oximetry 100 05/03/21 13:03 05/03/21 14:00 05/03/21 16
[2021-05-04] MEDS: METOPROLOL TARTRATE 25 MG TABLET PO ×2 (10:35→22:26)
--- NOTE | 2021-05-04 11:30 | PM.IMPN ---
Progress Note: A&P Assessment and Plan (1) Atrial fibrillation with rapid ventricular response: Code(s): I48.91 - Unspecified atrial fibrillation Status: Acute Assessment and Plan: Cardizem drip discontinued per cardiology Amiodarone PO 400mg PO Continuous telemetry: looks to be in a rate controlled a fib Continue to monitor Cardiology consult thank you for your help VS are stable Telemonitor EKG shows Afib RVR 132 Metoprolol 25mg PO BID added Trend heart rate Heart rate is better controlled in the 70s (2) Elevated troponin: Code(s): R77.8 - Other specified abnormalities of plasma proteins Status: Acute Assessment and Plan: Likely secondary to chronic kidney disease and atrial fibrillation 1: 0.076, 0.073, 0.089, which are flat Cardiology on the case Continue to monitor Chest xray shows no acute cardiopulmonary findings (3) Status post transcatheter aortic valve replacement (TAVR) using bioprosthesis: Code(s): Z95.3 - Presence of xenogenic heart valve Status: Acute Assessment and Plan: Stable Continue to monitor (4) Parkinson disease: Code(s): G20 - Parkinson's disease Status: Acute Assessment and Plan: Unchanged Continue carbidopa levodopa (5) Orthostatic hypotension: Code(s): I95.1 - Orthostatic hypotension Status: Acute Assessment and Plan: Unchanged Order orthostatic pressure No antihypertensives on board (6) Chronic kidney disease, stage 4 (severe): Code(s): N18.4 - Chronic kidney disease, stage 4 (severe) Status: Acute Assessment and Plan: Continue to monitor Stable (7) CHF (congestive heart failure), NYHA class I: Code(s): I50.9 - Heart failure, unspecified Status: Chronic Assessment and Plan: Appears euvolemic Daily intake and output Continue to monitor (8) COVID: Code(s): U07.1 - COVID-19 Status: Acute Assessment and Plan: This could be an old finding since the patient tested positive back in november No infiltrates on chest x-ray Continue to monitor Supportive care (9) Fall: Code(s): W19.XXXA - Unspecified fall, initial encounter Status: Acute Assessment and Plan: Fall precautions. No injuries (10) Abdominal pain: Code(s): R10.9 - Unspecified abdominal pain Status: Acute Assessment and Plan: Complains of pain in the abdomen KUB ordered showed non-obstructive pattern Lactic acid 0.9 Nauseous complaints zofran ordered (11) Hypoglycemia: Code(s): E16.2 - Hypoglycemia, unspecified Status: Acute Assessment and Plan: Glucose look to have decreased down to 44 today Hold all insulins Seems like it has stabilized Continue to trend Subjective Date/time seen: 05/04/21 11:30 Interval history: Date/Time: 05/01/21 23:37 Narrative: This is a 75-year-old male with past medical history significant for diastolic heart failure type 2, Parkinson's disease, atrial fibrillation, aortic stenosis status post TAVR, chronic kidney disease, coronary artery disease, diabetes, gastroparesis, stroke, gout, hypertension, seizure disorder, subdural hematoma, peripheral vascular disease, benign prostatic hyperplasia. Patient is a longterm resident he was brought for evaluation after the patient fell while trying to reach something in out of his bed. He preliminary workup was negative for any injuries. Patient is poor historian but according to medical records and emergency room patient was just recently discharged from the hospital. He was found to have a fever with rapid ventricular response and has been started on Cardizem drip. Patient is been admitted to IMU for further evaluation management and treatment. Date/Time 05/02/21 1000 Patient is lying in bed. Patient states that he feels okay. Patient denies any pain, nausea, vomiting, diarrhea, constipat
[2021-05-04] MEDS: CARBIDOPA/LEVODOPA 25/100 MG TABLET 2 TABLET PO ×2 (11:59→22:18)
[2021-05-04] MEDS: ONDANSETRON INJ 4 MG/2 ML VIAL IV PUSH (12:05)
[2021-05-04 13:01] LABS: Glucose Point of Care 96 mg/dl (65-105)
--- NOTE | 2021-05-04 14:10 | PCNFU ---
Nutrition Follow-Up Complete: Unintentional wt loss related to atrial fib w/RVR and COVID 19 as evidenced by reported decreased appetite and weight loss of 5lbs Goal: Pt to meet 75% of estimated nutritional needs Pt is progressing towards goal Pt current nutrition is Diabetic carb consistent diet and dietary supplement Last recorded weight is 90 kg, stable. Bowel Motility: +BM 05/04 Labs Reviewed: hgb 11.4, hct 34.3, alb 2.7, Na 132, Cl 111, GFR 22, BUN 75, Cr 2.8, Glu 145, CO2 17 Meds Noted: zyloprim, pacerone, eliquis, calcitriol, sinemet, rocephin, colace, ferrous sulfate, lantus, lactinex, proamatine, protonix, prednisone, vitamin B6 Skin: No new skin breakdown at this time, WNL Additional Notes: Current nutrition is a diabetic carb consistent diet and dietary supplements of Ensure Compact BID providing an additional 220kcal and 9g of protein to increase caloric intake. Reported intake is 75% x5. Pt is tolerating current diet with adequate intake. Agree with diet orders at this time. Will continue to follow. Will monitor labs, medication, wt, and reported intake every 5 days
[2021-05-04 16:31] LABS: Lactic Acid Reflex 0.9 mmol/L (0.7-2.1)
[2021-05-04 17:18] LABS: Glucose Point of Care 74 mg/dl (65-105)
[2021-05-04 20:56] LABS: Glucose Point of Care 72 mg/dl (65-105)
[2021-05-04] MEDS: TAMSULOSIN HCL 0.4 MG CAPSULE PO (22:17)
[2021-05-04] MEDS: LATANOPROST 0.005% OP SOLN 2.5 ML BTL 1 DROP EACH EYE (22:17)
[2021-05-04] MEDS: ATORVASTATIN 40 MG TABLET PO (22:18)
[2021-05-04] MEDS: VENLAFAXINE HCL XR 75 MG CAP.ER.24H PO (22:18)
[2021-05-04] MEDS: INSULIN GLARGINE (*BKC) 100 UNITS/ML 20 UNITS SUB-Q (22:19)
[2021-05-05] VITALS (12 sets, daily range): BP systolic 130–149; BP diastolic 64–85; PULSE 75–125; RESP 18–22; TEMP 36.6–37.6; O2SAT 93–100
[2021-05-05 04:42] LABS: Glucose Point of Care 44 mg/dl (65-105)
[2021-05-05] MEDS: DEXTROSE 50% 25 GM/50 ML SYRINGE IV PUSH (04:42)
[2021-05-05 06:18] LABS: Glucose Point of Care 108 mg/dl (65-105)
[2021-05-05] MEDS: AMIODARONE HCL 200 MG TABLET 400 MG PO ×3 (06:27→21:10)
[2021-05-05] MEDS: allopurinoL 150 MG TABLET PO (08:46)
[2021-05-05] MEDS: ASPIRIN 81 MG ENTERIC TABLET PO (08:47)
[2021-05-05] MEDS: ACIDOPHILUS/BULGARICUS CHEWABLE TABLET 1 TABLET PO ×2 (08:47→17:15)
[2021-05-05] MEDS: FERROUS SULFATE 324 MG TABLET PO (08:48)
[2021-05-05] MEDS: BRIMONIDINE TARTRATE 0.2% OP SOLN 5 ML BTL 1 DROP EACH EYE ×3 (08:48→17:15)
[2021-05-05] MEDS: PYRIDOXINE HCL 50 MG TABLET 100 MG PO (08:51)
[2021-05-05] MEDS: VITAMIN B CMPLX/VIT C/FOLIC AC 1 CAPSULE 1 CAP PO (08:51)
[2021-05-05] MEDS: predniSONE 5 MG TABLET PO (08:54)
[2021-05-05] MEDS: APIXABAN 2.5 MG TABLET PO ×2 (08:57→17:15)
[2021-05-05] MEDS: CARBIDOPA/LEVODOPA 25/250 MG TABLET 1 TABLET PO ×2 (08:58→17:15)
[2021-05-05] MEDS: MICONAZOLE NITRATE 2% CREAM 30 GM TUBE 1 APPLIC TOPICAL ×2 (09:03→21:11)
[2021-05-05] MEDS: INSULIN GLARGINE (*BKC) 100 UNITS/ML 11 UNITS SUB-Q (09:05)
[2021-05-05] MEDS: METOPROLOL TARTRATE 25 MG TABLET PO ×2 (09:07→21:11)
[2021-05-05] MEDS: MIDODRINE HCL 2.5 MG TABLET 5 MG PO ×3 (09:07→17:15)
[2021-05-05] MEDS: PANTOPRAZOLE 40 MG TABLET PO (09:09)
[2021-05-05 09:16] LABS: Glucose Point of Care 87 mg/dl (65-105)
--- NOTE | 2021-05-05 09:22 | PM.PNCARD ---
Progress Note: A&P Assessment and Plan (1) COVID: Code(s): U07.1 - COVID-19 Status: Acute Assessment and Plan: Per hospitalist (2) Parkinson disease: Code(s): G20 - Parkinson's disease Status: Acute (3) Status post transcatheter aortic valve replacement (TAVR) using bioprosthesis: Code(s): Z95.3 - Presence of xenogenic heart valve Status: Acute Assessment and Plan: Functioning normally (4) Atrial fibrillation with rapid ventricular response: Code(s): I48.91 - Unspecified atrial fibrillation Status: Acute Assessment and Plan: His rate has better controlled with addition of metoprolol -rate in the 80s and 90s this morning. Continue amiodarone. Continue metoprolol 25 mg p.o. b.i.d. Subjective Date/time seen: 05/05/21 09:22 Interval history: Narrative: This is a 75-year-old male with past medical history significant for diastolic heart failure type 2, Parkinson's disease, atrial fibrillation, aortic stenosis status post TAVR, chronic kidney disease, coronary artery disease, diabetes, gastroparesis, stroke, gout, hypertension, seizure disorder, subdural hematoma, peripheral vascular disease, benign prostatic hyperplasia. Patient is a custodial resident he was brought for evaluation after the patient fell while trying to reach something in out of his bed. He preliminary workup was negative for any injuries. Patient is poor historian but according to medical records and emergency room patient was just recently discharged from the hospital. He was found to have a fever with rapid ventricular response and has been started on Cardizem drip. Date of service 05/03/2021: Lying in bed comfortably. No complaints of chest pain or shortness of breath Date of service 05/04/2021: Still does not feel very well but no active complaints of chest pain or shortness of breath Date of service 05/05/2021: States that he feels ?a little better? today. Does not have any specific complaints. Denies any any shortness of breath, palpitations. Review of Systems Constitutional: Constitutional: Reports weakness Eyes: Eyes: Reports no additional eye complaints ENT: Reports system reviewed and no additional complaints, except as documented Cardiovascular: Cardiovascular: Reports no additional cardiovascular complaints and Reports dyspnea on exertion Respiratory: Respiratory: Reports dyspnea on exertion Gastrointestinal: Gastrointestinal: Reports no additional gastrointestinal complaints Musculoskeletal: Musculoskeletal: Reports no additional musculoskeletal complaints Integumentary/Breasts: Skin/Breast: Reports system reviewed and no additional complaints, except as docu Neurologic: Reports system reviewed and no additional complaints, except as documented and Reports weakness Psychiatric: Psychiatric: Reports no additional psychiatric complaints Endocrine: Endocrine: Reports no additional endocrine complaints Hematologic/Lymphatic: Hematologic/Lymphatic: Reports no additional hematologic/lymphatic complaints Allergic/Immunologic: Allergic/Immunologic: Reports no additional allergic/immunologic complaints Exam Const: General: comfortable and no acute distress Other: Pleasant tall elderly man no distress HENMT: Mouth: Yes moist mucous membranes Eyes: Sclera: sclerae normal Pupils: Equal, round and reactive pupils present Neck: Neck: supple and no JVD Resp: Effort & Inspection: normal respiratory effort Auscultation: clear to auscultation bilaterally Cardio: Rhythm: abnormal rhythm irregularly irregular GI: Auscultation: normal bowel sounds Skin: General skin exam: normal color Neuro: Cranial nerves: Yes Equal, round and reactive pupils present Cognition (Neuro): normal cognition Extrem: General: normal to inspection Objective Data Vital Signs Vital Signs: Vital Signs - 24 hr 05/04/21 10:35 05/04/21 12:00 05/04/21 14:00 Temperature 3
--- NOTE | 2021-05-05 11:30 | PM.IMPN ---
Progress Note: A&P Assessment and Plan (1) Diarrhea: Code(s): R19.7 - Diarrhea, unspecified Status: Acute Assessment and Plan: Seems resolved at this time Multiple episodes of diarrhea Pt reports many episodes of diarrhea, however, nurse stated that it slowing down He has been on antibiotics from this visit, last visit, and even before that WBC is slightly elevated at 10.2 Continue oral vanco IV fluids which is off now Trend labs (2) Atrial fibrillation with rapid ventricular response: Code(s): I48.91 - Unspecified atrial fibrillation Status: Acute Assessment and Plan: Cardizem drip discontinued per cardiology Amiodarone PO 400mg Continuous telemetry: looks to be in a rate controlled a fib Continue to monitor Cardiology consult thank you for your help VS are stable Telemonitor EKG shows Afib RVR 132 Metoprolol 25mg PO BID Trend heart rate Heart rate is better controlled in the 96 (3) Elevated troponin: Code(s): R77.8 - Other specified abnormalities of plasma proteins Status: Acute Assessment and Plan: Likely secondary to chronic kidney disease and atrial fibrillation 1: 0.076, 0.073, 0.089, which are flat Cardiology on the case Continue to monitor Chest xray shows no acute cardiopulmonary findings (4) Status post transcatheter aortic valve replacement (TAVR) using bioprosthesis: Code(s): Z95.3 - Presence of xenogenic heart valve Status: Acute Assessment and Plan: Stable Continue to monitor (5) Parkinson disease: Code(s): G20 - Parkinson's disease Status: Acute Assessment and Plan: Unchanged Continue carbidopa levodopa (6) Orthostatic hypotension: Code(s): I95.1 - Orthostatic hypotension Status: Acute Assessment and Plan: Unchanged Orthostatic pressure seems to be more hypertensive L: 132/94, Sittin/81, Standing 142/108 Educated patient and about slow position changes (7) Chronic kidney disease, stage 4 (severe): Code(s): N18.4 - Chronic kidney disease, stage 4 (severe) Status: Chronic Assessment and Plan: Seems to be getting better current BUN/Cr 60/2.50 Nephrology on the case thank you for your help Avoid nephrotoxic medications Continue to monitor Status post transplantation approximately 13 years ago intact PANDYA some prednisone follows with [facility] transplant tacrolimus level is 6.8 which is therapeutic (8) CHF (congestive heart failure), NYHA class I: Code(s): I50.9 - Heart failure, unspecified Status: Chronic Assessment and Plan: Appears euvolemic Daily intake and output Continue to monitor Daily weights (9) COVID: Code(s): U07.1 - COVID-19 Status: Resolved Assessment and Plan: Resolved at this time This could be an old finding since the patient tested positive back in November This is a historical finding No infiltrates on chest x-ray Continue to monitor Supportive care (10) Fall: Code(s): W19.XXXA - Unspecified fall, initial encounter Status: Acute Assessment and Plan: Fall precautions. No injuries (11) Diabetes type 2, controlled: Code(s): E11.9 - Type 2 diabetes mellitus without complications Status: Acute Assessment and Plan: Glucose 228 SSI Hypoglycemia protocol trend glucose Accu-cheks Adjust therapy as indicated (12) Urinary tract infection: Qualifiers: Hematuria presence: with hematuria Urinary tract infection type: site unspecified Qualified Code(s): N39.0 - Urinary tract infection, site not specified; R31.9 - Hematuria, unspecified Code(s): N39.0 - Urinary tract infection, site not specified Status: Acute Assessment and Plan: Suspect urinary retention check bladder scan Urine culture grew Enterococcus Recent urine culture with C
[2021-05-05] MEDS: CARBIDOPA/LEVODOPA 25/100 MG TABLET 2 TABLET PO ×2 (11:59→21:10)
[2021-05-05 13:40] LABS: Glucose Point of Care 144 mg/dl (65-105)
[2021-05-05 16:54] LABS: Basophils Percent Auto 0.3 % (0.2-1.2); Eosinophils Absolute Auto 0.1 K/mm3 (0-0.3); Eosinophils Percent Auto 1.3 % (0-4.4); Hematocrit 38.4 % (42.0-52.0); Hemoglobin 12.7 g/dL (14.0-18.0); Immature Granulocyte Percent A 1.1 % (0-0.5); Lymphocytes Absolute Auto 1.71 K/mm3 (0.9-3.2); Lymphocytes Percent Auto 19.1 % (18.3-44.2); Mean Corpuscular HGB Conc 33.1 g/dl (32-36); Mean Corpuscular Hemoglobin 31.5 pg (26-34); Mean Corpuscular Volume 95.3 fl (80-100); Mean Platelet Volume 10.1 fl (7.4-10.4); Monocytes Absolute Auto 0.7 K/mm3 (0.1-0.6); Monocytes Percent Auto 7.4 % (2.6-8.5); Neutrophils Absolute Auto 6.3 K/mm3 (1.3-6.7); Neutrophils Percent Auto 70.8 % (45.5-73.1); Platelet Count Result 182 k/mm3 (150-375); Red Blood Count 4.03 M/mm3 (4.6-6.20); White Blood Count 8.9 K/mm3 (4.5-10.0)
[2021-05-05 17:05] LABS: Alanine Aminotransferase 8 U/L (4-50); Albumin Level 2.6 g/dL (3.5-5.1); Alkaline Phosphatase 65 U/L (38-126); Anion Gap 6 mmol/L (8-16); Aspartate Amino Transferase 23 U/L (17-59); Bilirubin,Total 0.4 mg/dL (0.2-1.3); Blood Urea Nitrogen 77 mg/dL (9-20); Calcium 8.7 mg/dL (8.4-10.2); Carbon Dioxide 16 mmol/L (22-30); Chloride 109 mmol/L (98-107); Estimated CRCL calculation 21 ml/min; Estimated Glomerular Filt Rate 21; Glucose 146 mg/dL (65-110); Potassium 5.2 mmol/L (3.4-5.0); Sodium 131 mmol/L (137-145)
[2021-05-05 17:52] LABS: Glucose Point of Care 159 mg/dl (65-105)
[2021-05-05] MEDS: INSULIN ASPART (*BKC) 100 UNITS/ML SUB-Q (18:07)
[2021-05-05] MEDS: TAMSULOSIN HCL 0.4 MG CAPSULE PO (21:09)
[2021-05-05] MEDS: VENLAFAXINE HCL XR 75 MG CAP.ER.24H PO (21:09)
[2021-05-05] MEDS: LATANOPROST 0.005% OP SOLN 2.5 ML BTL 1 DROP EACH EYE (21:11)
[2021-05-05] MEDS: ATORVASTATIN 40 MG TABLET PO (21:11)
[2021-05-06] VITALS (11 sets, daily range): BP systolic 127–138; BP diastolic 75–93; PULSE 74–111; RESP 14–22; TEMP 36.2–37.3; O2SAT 96–100; BMI 10.0
[2021-05-06] MEDS: AMIODARONE HCL 200 MG TABLET 400 MG PO (05:43)
[2021-05-06] MEDS: ASPIRIN 81 MG ENTERIC TABLET PO (09:05)
[2021-05-06] MEDS: DEXTROSE 50% 25 GM/50 ML SYRINGE IV PUSH (09:05)
[2021-05-06] MEDS: VITAMIN B CMPLX/VIT C/FOLIC AC 1 CAPSULE 1 CAP PO (09:05)
[2021-05-06] MEDS: PANTOPRAZOLE 40 MG TABLET PO (09:05)
[2021-05-06] MEDS: predniSONE 5 MG TABLET PO (09:05)
[2021-05-06] MEDS: APIXABAN 2.5 MG TABLET PO ×2 (09:05→17:19)
[2021-05-06] MEDS: FERROUS SULFATE 324 MG TABLET PO (09:06)
[2021-05-06] MEDS: calcitrioL 0.25 MCG CAPSULE 0.5 MCG PO (09:06)
[2021-05-06] MEDS: ACIDOPHILUS/BULGARICUS CHEWABLE TABLET 1 TABLET PO ×2 (09:06→17:19)
[2021-05-06] MEDS: PYRIDOXINE HCL 50 MG TABLET 100 MG PO (09:06)
[2021-05-06] MEDS: MIDODRINE HCL 2.5 MG TABLET 5 MG PO ×3 (09:06→17:18)
[2021-05-06] MEDS: allopurinoL 150 MG TABLET PO (09:06)
[2021-05-06] MEDS: DOCUSATE SODIUM 100 MG CAPSULE PO ×2 (09:06→17:19)
[2021-05-06] MEDS: METOPROLOL TARTRATE 25 MG TABLET PO ×2 (09:07→21:34)
[2021-05-06] MEDS: CARBIDOPA/LEVODOPA 25/250 MG TABLET 1 TABLET PO ×2 (09:07→17:19)
[2021-05-06] MEDS: BRIMONIDINE TARTRATE 0.2% OP SOLN 5 ML BTL 1 DROP EACH EYE ×3 (09:08→17:19)
[2021-05-06] MEDS: MICONAZOLE NITRATE 2% CREAM 30 GM TUBE 1 APPLIC TOPICAL ×2 (09:09→21:34)
[2021-05-06 09:10] LABS: Glucose Point of Care 54 mg/dl (65-105)
[2021-05-06 09:44] LABS: Glucose Point of Care 137 mg/dl (65-105)
[2021-05-06 10:09] LABS: Phosphorus 4.3 mg/dL (2.5-4.5)
--- NOTE | 2021-05-06 10:19 | PM.PNCARD ---
Progress Note: A&P Additional Plan 75-year-old man with: Recurrent atrial flutter/fib which is being treated now with the oral loading dose of amiodarone at a modest dose of metoprolol. He is not greatly symptomatic with this. Today I am going to reduce his amiodarone from 1200-400 mg per day. Hopefully at this dosage he will eventually convert back to sinus rhythm. Systemic anticoagulation is already in place. No other cardiac recommendations at this time. Upon discharge follow-up is to occur with his established physicians at the [facility]. If AFib persists cardioversion will be considered at that time. Mateusz Erwin MD [facility] Subjective Date/time seen: Date of service: 05/06/21 10:19 Interval history: Follow-up visit in this 75-year-old man with: Recurrent atrial flutter/fibrillation with RVR. Patient was not greatly symptomatic with this on admission. He has been placed on an oral loading dose of amiodarone. For the last couple of days rhythm has been stable and well rate controlled. Low-dose of amiodarone has been added to this. Recent problematic orthostatic hypotension with discontinuance of multiple medications during recent hospitalization. Patient with previous TAVR and renal transplant receives most of his care at [facility]. Appears to be in no distress upon entering the room. Reports that he is experiencing some nausea this morning but so far no emesis. Exam Const: General: comfortable and no acute distress HENMT: Mouth: Yes moist mucous membranes Eyes: Sclera: sclerae normal Pupils: Equal, round and reactive pupils present Neck: Neck: supple and no JVD Resp: Effort & Inspection: normal respiratory effort Auscultation: clear to auscultation bilaterally Cardio: Rhythm: abnormal rhythm irregularly irregular Other: Soft systolic crescendo decrescendo murmur audible at the base no diastolic murmur GI: GI Palp: Yes Soft to palpation Auscultation: normal bowel sounds Skin: General skin exam: normal color Neuro: Cognition (Neuro): normal cognition Extrem: General: normal to inspection Objective Data Vital Signs Vital Signs: Vital Signs - 24 hr 05/05/21 12:00 05/05/21 14:00 05/05/21 16:00 Temperature 36.9 C 37.1 C Pulse Rate 78 75 90 Respiratory Rate 18 22 H Blood Pressure 136/78 136/84 Pulse Oximetry 96 93 05/05/21 20:00 05/05/21 21:10 05/05/21 21:11 Temperature 37.6 C Pulse Rate 85 88 88 Respiratory Rate 18 Blood Pressure 130/64 Pulse Oximetry 100 05/06/21 00:00 05/06/21 04:00 05/06/21 05:36 Temperature 37.3 C Pulse Rate 110 H 104 H Respiratory Rate 18 Blood Pressure 136/83 Pulse Oximetry 99 96 05/06/21 05:43 05/06/21 08:00 Temperature 36.2 C L Pulse Rate 102 H 98 Respiratory Rate 22 H Blood Pressure 127/86 Pulse Oximetry 100 Intake/Output Intake/Output: Intake & Output 05/03/21 05/04/21 05/05/21 05/06/21 23:59 23:59 23:59 23:59 Intake Total 5222 107 1189 1110 Output Total 600 1450 550 850 Balance 760 -940 950 260 Meds/Results Medications: Active Medications Generic Name Dose Route Start Last Admin Trade Name Ahsanq PRN Reason Stop Dose Admin Acetaminophen 650 mg 05/02/21 03:30 Acetaminophen 325 Mg Tablet PO Q6H PRN Mild Pain (1-3) Or Fever Allopurinol 150 mg 05/02/21 08:00 05/06/21 09:06 Allopurinol 150 Mg Tablet PO 150 mg DAILY@0800 MARICHUY Administration Apixaban 2.5 mg 05/02/21 09:00 05/06/21 09:05 Apixaban 2.5 Mg Tablet PO 2.5 mg BID MARICHUY Administration Artificial Tears 1 drop 05/02/21 03:30 Artificial Tears Ophth Soln 15 Ml Bottle EACH EYE TID PRN Dry Eye(S) Aspirin 81 mg 05/02/21 09:00 05/06/21 09:05 Aspirin 81 Mg Enteric Tablet PO 81 mg QAM MARICHUY Administration Atorvastatin Calcium 40 mg 05/02/21 21:00 05/05/21 21:11 Atorvastatin 40 Mg Tablet PO 40 mg HS MARICHUY Administration Brimonidine Tartrate 1
[2021-05-06] MEDS: CARBIDOPA/LEVODOPA 25/100 MG TABLET 2 TABLET PO ×2 (10:32→21:34)
--- NOTE | 2021-05-06 10:45 | PM.IMPN ---
Progress Note: A&P Assessment and Plan (1) Atrial fibrillation with rapid ventricular response: Code(s): I48.91 - Unspecified atrial fibrillation Status: Acute Assessment and Plan: Cardizem drip discontinued per cardiology Amiodarone PO 400mg Continuous telemetry: looks to be in a rate controlled a fib Continue to monitor Cardiology consult thank you for your help VS are stable Telemonitor EKG shows Afib RVR 132 Metoprolol 25mg PO BID Trend heart rate Heart rate is better controlled in the 96 (2) Elevated troponin: Code(s): R77.8 - Other specified abnormalities of plasma proteins Status: Acute Assessment and Plan: Likely secondary to chronic kidney disease and atrial fibrillation 1: 0.076, 0.073, 0.089, which are flat Cardiology on the case Continue to monitor Chest xray shows no acute cardiopulmonary findings (3) Status post transcatheter aortic valve replacement (TAVR) using bioprosthesis: Code(s): Z95.3 - Presence of xenogenic heart valve Status: Acute Assessment and Plan: Stable Continue to monitor (4) Parkinson disease: Code(s): G20 - Parkinson's disease Status: Acute Assessment and Plan: Unchanged Continue carbidopa levodopa (5) Orthostatic hypotension: Code(s): I95.1 - Orthostatic hypotension Status: Acute Assessment and Plan: Unchanged Order orthostatic pressure No antihypertensives on board (6) Chronic kidney disease, stage 4 (severe): Code(s): N18.4 - Chronic kidney disease, stage 4 (severe) Status: Acute Assessment and Plan: Continue to monitor Stable (7) CHF (congestive heart failure), NYHA class I: Code(s): I50.9 - Heart failure, unspecified Status: Chronic Assessment and Plan: Appears euvolemic Daily intake and output Continue to monitor (8) COVID: Code(s): U07.1 - COVID-19 Status: Acute Assessment and Plan: This could be an old finding since the patient tested positive back in november No infiltrates on chest x-ray Continue to monitor Supportive care (9) Fall: Code(s): W19.XXXA - Unspecified fall, initial encounter Status: Acute Assessment and Plan: Fall precautions. No injuries (10) Abdominal pain: Code(s): R10.9 - Unspecified abdominal pain Status: Acute Assessment and Plan: Complains of pain in the abdomen KUB ordered showed non-obstructive pattern, upon further review it looks as if the patient has a stool ball in the right abdomen Mineral oil enema, senna daily, and suppository for 1999 this evening Lactic acid 0.9 Nauseous complaints zofran ordered (11) Hypoglycemia: Code(s): E16.2 - Hypoglycemia, unspecified Status: Acute Assessment and Plan: Glucose look to have decreased down to 146 Hold all insulins Seems like it has stabilized Continue to trend (12) Constipation: Code(s): K59.00 - Constipation, unspecified Status: Acute Assessment and Plan: Abd xray shows what looks to be a fecal ball Enema, senna, and suppository ordered (13) Hyperkalemia: Code(s): E87.5 - Hyperkalemia Status: Acute Assessment and Plan: K is 5.2 Nephrology consult thank you for your help Could be from renal failure Has adequate output Time Spent With Patient Time with patient: Greater than 35 minutes Subjective Date/time seen: 05/06/21 10:45 Interval history: Date/Time: 05/01/21 23:37 Narrative: This is a 75-year-old male with past medical history significant for diastolic heart failure type 2, Parkinson's disease, atrial fibrillation, aortic stenosis status post TAVR, chronic kidney disease, coronary artery disease, diabetes, gastroparesis, stroke, gout, hypertension, seizure disorder, subdural hematoma, peripheral vascular disease, benign prostatic hyperplasia. Patient
[2021-05-06 12:44] LABS: Glucose Point of Care 128 mg/dl (65-105)
--- NOTE | 2021-05-06 12:54 | P.CONNP_ITS ---
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 Olivia) (4) Atrial fibrillation with rapid ventricular response: Code(s): I48.91 - Unspecified atrial fibrillation Status: Acute Assessment and Plan: * Cardiology recommendations noted * rate control strategy * already on anticoagulation (5) HTN (hypertension): Qualifiers: Hypertension type: essential hypertension Qualified Code(s): I10 - Essential (primary) hypertension Code(s): I10 - Essential (primary) hypertension Status: Chronic Assessment and Plan: * reasonable control at this time * follow trend of hemodynamcs (6) Diabetes: Qualifiers: Diabetes mellitus complication detail: with autonomic neuropathy Diabetes mellitus complication status: with neurologic complications Diabetes mellitus shelter insulin use: with shelter use Diabetes mellitus type: type 2 Qualified Code(s): E11.43 - Type 2 diabetes mellitus with diabetic autonomic (poly)neuropathy; Z79.4 - formulation chemist (current) use of insulin Code(s): E11.9 - Type 2 diabetes mellitus without complications Status: Chronic Assessment and Plan: * follow accuchecks * glycemic control Will continue to follow. History of Present Illness Reason for Consult Consult date: 05/06/21 Reason for consult: chronic renal failure and hyperkalemia Chief Complaint Chief complaint: atrial fib with RVR History of Present Illness Narrative: Most of the information I have obtained is from review of the electronic medical record as well as discussion with the physician/ nurse involved in his care as well as my personal experience taking care of the patient on previous hospitalizations as the patient is a poor historian. The patient is a 75-year-old male with an extensive past medical history as outlined below who presented to [facility] Emergency room from his nursing facility after sustaining a fall. Apparently, the patient fell while trying to reach for something when he was in bed. He denies any specific complaints or issues with pain following the fall however his nursing facility wanted to ensure that he had not had sustained any specific injuries since he did have a fall out of bed. Workup and evaluation emergency room demonstrated no acute injuries by imaging studies. Routine blood test demonstrated labs consistent with his known history of chronic kidney disease as well. He was found to have atrial fibrillation with rapid ventricular response although it is unclear if this had anything to do
--- NOTE | 2021-05-06 12:54 | PM.CNNEP ---
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 Olivia) (4) Atrial fibrillation with rapid ventricular response: Code(s): I48.91 - Unspecified atrial fibrillation Status: Acute Assessment and Plan: Cardiology recommendations noted rate control strategy already on anticoagulation (5) HTN (hypertension): Qualifiers: Hypertension type: essential hypertension Qualified Code(s): I10 - Essential (primary) hypertension Code(s): I10 - Essential (primary) hypertension Status: Chronic Assessment and Plan: reasonable control at this time follow trend of hemodynamcs (6) Diabetes: Qualifiers: Diabetes mellitus complication detail: with autonomic neuropathy Diabetes mellitus complication status: with neurologic complications Diabetes mellitus long-term insulin use: with terminal operator use Diabetes mellitus type: type 2 Qualified Code(s): E11.43 - Type 2 diabetes mellitus with diabetic autonomic (poly)neuropathy; Z79.4 - FDC (current) use of insulin Code(s): E11.9 - Type 2 diabetes mellitus without complications Status: Chronic Assessment and Plan: follow accuchecks glycemic control Will continue to follow. History of Present Illness Reason for Consult Consult date: 05/06/21 Reason for consult: chronic renal failure and hyperkalemia Chief Complaint Chief complaint: atrial fib with RVR History of Present Illness Narrative: Most of the information I have obtained is from review of the electronic medical record as well as discussion with the physician/ nurse involved in his care as well as my personal experience taking care of the patient on previous hospitalizations as the patient is a poor historian. The patient is a 75-year-old male with an extensive past medical history as outlined below who presented to [facility] Emergency room from his nursing facility after sustaining a fall. Apparently, the patient fell while trying to reach for something when he was in bed. He denies any specific complaints or issues with pain following the fall however his nursing facility wanted to ensure that he had not had sustained any specific injuries since he did have a fall out of bed. Workup and evaluation emergency room demonstrated no acute injuries by imaging studies. Routine blood test demonstrated labs consistent with his known history of chronic kidney disease as well. He was found to have atrial fibrillation with rapid ventricular response although it is unclear if this had anything to do with regard to his fall or was it a confounding factor. He was started on a diltiazem drip for rate control and subsequently admitted to the hospital for further evaluation and therapy. Since his admission, he has been seen by Cardiology with recommendations to transition him to Amiodarone in the hopes that this would better control his heart rate and perhaps maybe lead to a normal si
[2021-05-06] MEDS: SENNA/DOCUSATE SODIUM TABLET 1 TAB PO (13:19)
[2021-05-06 16:35] LABS: Glucose Point of Care 129 mg/dl (65-105)
[2021-05-06 20:47] LABS: Glucose Point of Care 138 mg/dl (65-105)
[2021-05-06] MEDS: BISACODYL 10 MG SUPPOSITORY RECTAL (21:34)
[2021-05-06] MEDS: LATANOPROST 0.005% OP SOLN 2.5 ML BTL 1 DROP EACH EYE (21:34)
[2021-05-06] MEDS: TAMSULOSIN HCL 0.4 MG CAPSULE PO (21:34)
[2021-05-06] MEDS: ATORVASTATIN 40 MG TABLET PO (21:35)
[2021-05-06] MEDS: VENLAFAXINE HCL XR 75 MG CAP.ER.24H PO (21:35)
[2021-05-07] VITALS (12 sets, daily range): BP systolic 139–159; BP diastolic 61–96; PULSE 33–113; RESP 16–21; TEMP 35.6–36.7; O2SAT 98–100
[2021-05-07 05:37] LABS: Basophils Absolute Auto 0.1 K/mm3 (0.0-0.1); Basophils Percent Auto 0.8 % (0.2-1.2); Eosinophils Absolute Auto 0.1 K/mm3 (0-0.3); Hematocrit 41.8 % (42.0-52.0); Hemoglobin 12.6 g/dL (14.0-18.0); Immature Granulocyte Absolute 0.08 K/mm3 (0.00-0.031); Immature Granulocyte Percent A 1.1 % (0-0.5); Lymphocytes Percent Auto 29.7 % (18.3-44.2); Mean Corpuscular HGB Conc 30.1 g/dl (32-36); Mean Corpuscular Hemoglobin 31.4 pg (26-34); Mean Corpuscular Volume 104.2 fl (80-100); Mean Platelet Volume 11.4 fl (7.4-10.4); Monocytes Absolute Auto 0.5 K/mm3 (0.1-0.6); Monocytes Percent Auto 6.8 % (2.6-8.5); Neutrophils Absolute Auto 4.3 K/mm3 (1.3-6.7); Neutrophils Percent Auto 60.6 % (45.5-73.1); Nucleated Red Blood Cells Perc 0.3 % (0.0-0.2); Platelet Count Result 161 k/mm3 (150-375); Red Blood Count 4.01 M/mm3 (4.6-6.20); Red Cell Distribution Width 18.3 % (11.5-14.5); White Blood Count 7.1 K/mm3 (4.5-10.0)
[2021-05-07 06:01] LABS: Albumin Level 2.5 g/dL (3.5-5.1); Alkaline Phosphatase 51 U/L (38-126); Anion Gap 8 mmol/L (8-16); Aspartate Amino Transferase 27 U/L (17-59); Bilirubin,Total 0.7 mg/dL (0.2-1.3); Blood Urea Nitrogen 81 mg/dL (9-20); Calcium 8.5 mg/dL (8.4-10.2); Carbon Dioxide 16 mmol/L (22-30); Chloride 106 mmol/L (98-107); Estimated CRCL calculation 19 ml/min; Estimated Glomerular Filt Rate 20; Glucose 90 mg/dL (65-110); Magnesium 2.2 mg/dL (1.6-2.3); Potassium 5.3 mmol/L (3.4-5.0); Sodium 130 mmol/L (137-145)
[2021-05-07 06:02] LABS: Alanine Aminotransferase < 6 U/L (4-50)
[2021-05-07] MEDS: MIDODRINE HCL 2.5 MG TABLET 5 MG PO ×3 (08:49→18:00)
[2021-05-07] MEDS: ASPIRIN 81 MG ENTERIC TABLET PO (08:49)
[2021-05-07] MEDS: VITAMIN B CMPLX/VIT C/FOLIC AC 1 CAPSULE 1 CAP PO (08:49)
[2021-05-07] MEDS: METOPROLOL TARTRATE 25 MG TABLET PO ×2 (08:50→21:12)
[2021-05-07] MEDS: BRIMONIDINE TARTRATE 0.2% OP SOLN 5 ML BTL 1 DROP EACH EYE ×3 (08:50→18:00)
[2021-05-07] MEDS: ACIDOPHILUS/BULGARICUS CHEWABLE TABLET 1 TABLET PO ×2 (08:50→18:00)
[2021-05-07] MEDS: allopurinoL 150 MG TABLET PO (08:50)
[2021-05-07] MEDS: APIXABAN 2.5 MG TABLET PO ×2 (08:50→18:00)
[2021-05-07] MEDS: PANTOPRAZOLE 40 MG TABLET PO (08:50)
[2021-05-07] MEDS: FERROUS SULFATE 324 MG TABLET PO (08:50)
[2021-05-07] MEDS: PYRIDOXINE HCL 50 MG TABLET 100 MG PO (08:50)
[2021-05-07] MEDS: DOCUSATE SODIUM 100 MG CAPSULE PO ×2 (08:50→17:56)
[2021-05-07] MEDS: CARBIDOPA/LEVODOPA 25/250 MG TABLET 1 TABLET PO ×2 (08:50→18:00)
[2021-05-07] MEDS: predniSONE 5 MG TABLET PO (08:50)
[2021-05-07] MEDS: AMIODARONE HCL 200 MG TABLET 400 MG PO (08:50)
[2021-05-07] MEDS: MICONAZOLE NITRATE 2% CREAM 30 GM TUBE 1 APPLIC TOPICAL (08:51)
[2021-05-07] MEDS: SENNA/DOCUSATE SODIUM TABLET 1 TAB PO (08:52)
[2021-05-07] MEDS: BISACODYL 10 MG SUPPOSITORY RECTAL (09:02)
[2021-05-07 09:06] LABS: Glucose Point of Care 86 mg/dl (65-105)
--- NOTE | 2021-05-07 09:30 | PM.IMPN ---
Progress Note: A&P Assessment and Plan (1) Atrial fibrillation with rapid ventricular response: Code(s): I48.91 - Unspecified atrial fibrillation Status: Acute Assessment and Plan: Cardizem drip discontinued per cardiology Amiodarone PO 400mg daily Continuous telemetry: looks to be in a rate controlled a fib Continue to monitor Cardiology consult thank you for your help VS are stable Telemonitor EKG shows Afib RVR 132 Metoprolol 25mg PO BID Trend heart rate Heart rate is better controlled in the 70-90 (2) Elevated troponin: Code(s): R77.8 - Other specified abnormalities of plasma proteins Status: Acute Assessment and Plan: Likely secondary to chronic kidney disease and atrial fibrillation 1: 0.076, 0.073, 0.089, which are flat Cardiology on the case Continue to monitor Chest xray shows no acute cardiopulmonary findings (3) Status post transcatheter aortic valve replacement (TAVR) using bioprosthesis: Code(s): Z95.3 - Presence of xenogenic heart valve Status: Acute Assessment and Plan: Stable Continue to monitor (4) Parkinson disease: Code(s): G20 - Parkinson's disease Status: Acute Assessment and Plan: Unchanged Continue carbidopa levodopa (5) Orthostatic hypotension: Code(s): I95.1 - Orthostatic hypotension Status: Acute Assessment and Plan: Unchanged Order orthostatic pressure No antihypertensives on board (6) Chronic kidney disease, stage 4 (severe): Code(s): N18.4 - Chronic kidney disease, stage 4 (severe) Status: Chronic Assessment and Plan: Seems to be worsening current BUN/Cr 81/3.10 Nephrology on the case thank you for your help Avoid nephrotoxic medications Continue to monitor (7) CHF (congestive heart failure), NYHA class I: Code(s): I50.9 - Heart failure, unspecified Status: Chronic Assessment and Plan: Appears euvolemic Daily intake and output Continue to monitor (8) COVID: Code(s): U07.1 - COVID-19 Status: Acute Assessment and Plan: This could be an old finding since the patient tested positive back in november No infiltrates on chest x-ray Continue to monitor Supportive care (9) Fall: Code(s): W19.XXXA - Unspecified fall, initial encounter Status: Acute Assessment and Plan: Fall precautions. No injuries (10) Abdominal pain: Code(s): R10.9 - Unspecified abdominal pain Status: Acute Assessment and Plan: Complains of pain in the abdomen KUB ordered showed non-obstructive pattern, upon further review it looks as if the patient has a stool ball in the right abdomen Mineral oil enema, senna daily, and suppository all give on 05/06/21 Lactic acid 0.9 Nauseous complaints zofran ordered (11) Hypoglycemia: Code(s): E16.2 - Hypoglycemia, unspecified Status: Acute Assessment and Plan: Glucose look to have decreased down to 90 Hold all insulins Seems like it has stabilized Continue to trend (12) Constipation: Code(s): K59.00 - Constipation, unspecified Status: Acute Assessment and Plan: Abd xray shows what looks to be a fecal ball Enema, senna, and suppository ordered Seems to be getting better as the patient is eating and doing well (13) Hyperkalemia: Code(s): E87.5 - Hyperkalemia Status: Acute Assessment and Plan: K is 5.3 Nephrology consult thank you for your help Could be from renal failure Has adequate output Time Spent With Patient Time with patient: Greater than 35 minutes Subjective Date/time seen: 05/07/21 0930 Interval history: Date/Time: 05/01/21 23:37 Narrative: This is a 75-year-old male with past medical history significant for diastolic heart failure type 2, Parkinson's disease, atrial fibrillation, aortic stenosis status post TAVR, chronic
--- NOTE | 2021-05-07 10:27 | P.PNNP_ITS ---
Progress Note: A&P Assessment and Plan (1) Chronic kidney disease, stage 4 (severe): Code(s): N18.4 - Chronic kidney disease, stage 4 (severe) Status: Chronic Assessment and Plan: * creatinine has fluctuated in the last year ranging from 2.5 - 3.5mg/dl * more recently, it has been running 2.7 - 3.1mg/dl When he is healthy. 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 * This may be due to mild stunning from the AFib plus RVR. * He also has [place] in his urine however I am not sure this is infectious or just colonization. He has no fever. He did have a mildly high white count on admission which could have been stress related to his cardiac issues or possibly infection? * Since urine did not grow bacteria than [place] he need Ceftriaxone? (2) Hyperkalemia: Code(s): E87.5 - Hyperkalemia Status: Acute Assessment and Plan: * has had this issue in the past * will add low K+ diet * follow trend of potassium * Check this again tomorrow (3) Kidney transplant status: Code(s): Z94.0 - Kidney transplant status Status: Chronic Assessment and Plan: * s/p transplantation ~ 13 years ago * on tacrolimus and prednisone. He is due for a tacrolimus level. * follows with [facility]plant (Dr. Olivia) (4) Atrial fibrillation with rapid ventricular response: Code(s): I48.91 - Unspecified atrial fibrillation Status: Acute Assessment and Plan: * Cardiology recommendations noted * rate control strategy * already on anticoagulation (5) HTN (hypertension): Qualifiers: Hypertension type: essential hypertension Qualified Code(s): I10 - Essential (primary) hypertension Code(s): I10 - Essential (primary) hypertension Status: Chronic Assessment and Plan: * reasonable control at this time * follow trend of hemodynamcs (6) Diabetes: Qualifiers: Diabetes mellitus type: type 2 Diabetes mellitus manager long term care insulin use: with care home use Diabetes mellitus complication status: with neurologic complications Diabetes mellitus complication detail: with autonomic neuropathy Qualified Code(s): E11.43 - Type 2 diabetes mellitus with diabetic autonomic (poly)neuropathy; Z79.4 - terminal make up operator (current) use of insulin Code(s): E11.9 - Type 2 diabetes mellitus without complications Status: Chronic Assessment and Plan: On Accu-Cheks and sliding-scale insulin Will continue to follow. Subjective Date/time seen: 05/07/21 10:27 Interval history: patient is awake. He is eating some breakfast. No diarrhea today yet . No chest pain or shortness of breath. No belly pain. No skin rash. No urologic problems. He has a Davidson catheter in. Review of Systems Cardiovascular: Cardiovascular: Reports no additional cardiovascular complaints Respiratory: Respiratory: Reports no additional respiratory complaints Gastrointestinal: Gastrointestinal: Reports no additional gastrointestinal complaints Genitourinary: Genitourinary: Reports no additional male genitourinary complaints Exam Narrative: WDWN in NAD skin no rash head ncat lungs clear cor reg no rub abd BS+ nontender and soft ext no edema. Objective Data Vital Signs Vital Signs:
--- NOTE | 2021-05-07 10:27 | PM.PNNEP ---
Progress Note: A&P Assessment and Plan (1) Chronic kidney disease, stage 4 (severe): Code(s): N18.4 - Chronic kidney disease, stage 4 (severe) Status: Chronic Assessment and Plan: creatinine has fluctuated in the last year ranging from 2.5 - 3.5mg/dl more recently, it has been running 2.7 - 3.1mg/dl When he is healthy. 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 This may be due to mild stunning from the AFib plus RVR. He also has [place] in his urine however I am not sure this is infectious or just colonization. He has no fever. He did have a mildly high white count on admission which could have been stress related to his cardiac issues or possibly infection? Since urine did not grow bacteria than [place] he need Ceftriaxone? (2) Hyperkalemia: Code(s): E87.5 - Hyperkalemia Status: Acute Assessment and Plan: has had this issue in the past will add low K+ diet follow trend of potassium Check this again tomorrow (3) Kidney transplant status: Code(s): Z94.0 - Kidney transplant status Status: Chronic Assessment and Plan: s/p transplantation ~ 13 years ago on tacrolimus and prednisone. He is due for a tacrolimus level. follows with [facility] (Dr. Olivia) (4) Atrial fibrillation with rapid ventricular response: Code(s): I48.91 - Unspecified atrial fibrillation Status: Acute Assessment and Plan: Cardiology recommendations noted rate control strategy already on anticoagulation (5) HTN (hypertension): Qualifiers: Hypertension type: essential hypertension Qualified Code(s): I10 - Essential (primary) hypertension Code(s): I10 - Essential (primary) hypertension Status: Chronic Assessment and Plan: reasonable control at this time follow trend of hemodynamcs (6) Diabetes: Qualifiers: Diabetes mellitus type: type 2 Diabetes mellitus dynamite shooter insulin use: with shelter use Diabetes mellitus complication status: with neurologic complications Diabetes mellitus complication detail: with autonomic neuropathy Qualified Code(s): E11.43 - Type 2 diabetes mellitus with diabetic autonomic (poly)neuropathy; Z79.4 - skilled nursing (current) use of insulin Code(s): E11.9 - Type 2 diabetes mellitus without complications Status: Chronic Assessment and Plan: On Accu-Cheks and sliding-scale insulin Will continue to follow. Subjective Date/time seen: 05/07/21 10:27 Interval history: patient is awake. He is eating some breakfast. No diarrhea today yet . No chest pain or shortness of breath. No belly pain. No skin rash. No urologic problems. He has a Davidson catheter in. Review of Systems Cardiovascular: Cardiovascular: Reports no additional cardiovascular complaints Respiratory: Respiratory: Reports no additional respiratory complaints Gastrointestinal: Gastrointestinal: Reports no additional gastrointestinal complaints Genitourinary: Genitourinary: Reports no additional male genitourinary complaints Exam Narrative: WDWN in NAD skin no rash head ncat lungs clear cor reg no rub abd BS+ nontender and soft ext no edema. Objective Data Vital Signs Vital Signs: Vital Signs - 24 hr 05/06/21 12:00 05/06/21 14:03 05/06/21 16:00 Temperature 36.5 C Pulse Rate 76 79 Respiratory Rate 14 Blood Pressure 131/75 Pulse Oximetry 96 100 05/06/21 19:53 05/06/21 20:00 05/06/21 21:34 Temperature 36.6 C Pulse Rate 97 110 H 111 H Respiratory Rate 20 Blood Pressure 138/93 H Pulse Oximetry 99 05/07/21 00:00 05/07/21 04:00 05/07/21 08:00 Temperature 36.0 C L Pulse Rate 92 84 91 Respiratory Rate 20 Blood Pressure 154/71 H Pulse Oximetry 100
[2021-05-07] MEDS: CARBIDOPA/LEVODOPA 25/100 MG TABLET 2 TABLET PO ×2 (11:52→21:13)
[2021-05-07 12:37] LABS: Glucose Point of Care 109 mg/dl (65-105)
--- NOTE | 2021-05-07 16:05 | PC.NURSE ---
This patient, Maris Jackman, was received from [[facility]] on 05/07/21 at 1605. Patient/family oriented to unit policies and routines
[2021-05-07 17:20] LABS: Glucose Point of Care 166 mg/dl (65-105)
[2021-05-07] MEDS: TAMSULOSIN HCL 0.4 MG CAPSULE PO (21:12)
[2021-05-07] MEDS: VENLAFAXINE HCL XR 75 MG CAP.ER.24H PO (21:12)
[2021-05-07] MEDS: ATORVASTATIN 40 MG TABLET PO (21:21)
[2021-05-07] MEDS: LATANOPROST 0.005% OP SOLN 2.5 ML BTL 1 DROP EACH EYE (21:21)
[2021-05-07 22:00] LABS: Glucose Point of Care 188 mg/dl (65-105)
[2021-05-08] VITALS (11 sets, daily range): BP systolic 130–154; BP diastolic 64–108; PULSE 53–115; RESP 16–18; TEMP 35.7–37; O2SAT 99–100
[2021-05-08] MEDS: MICONAZOLE NITRATE 2% CREAM 30 GM TUBE 1 APPLIC TOPICAL ×2 (00:22→08:59)
[2021-05-08 06:20] LABS: Albumin Level 2.7 g/dL (3.5-5.1); Anion Gap 6 mmol/L (8-16); Blood Urea Nitrogen 82 mg/dL (9-20); Calcium 8.7 mg/dL (8.4-10.2); Carbon Dioxide 15 mmol/L (22-30); Chloride 109 mmol/L (98-107); Estimated CRCL calculation 18 ml/min; Estimated Glomerular Filt Rate 18; Glucose 170 mg/dL (65-110); Phosphorus 4.3 mg/dL (2.5-4.5); Potassium 4.9 mmol/L (3.4-5.0); Sodium 130 mmol/L (137-145)
[2021-05-08 07:56] LABS: Basophils Percent Auto 0.4 % (0.2-1.2); Eosinophils Absolute Auto 0.1 K/mm3 (0-0.3); Eosinophils Percent Auto 0.8 % (0-4.4); Hematocrit 38.2 % (42.0-52.0); Hemoglobin 12.8 g/dL (14.0-18.0); Immature Granulocyte Absolute 0.08 K/mm3 (0.00-0.031); Immature Granulocyte Percent A 0.9 % (0-0.5); Lymphocytes Absolute Auto 2.11 K/mm3 (0.9-3.2); Lymphocytes Percent Auto 23.2 % (18.3-44.2); Mean Corpuscular HGB Conc 33.5 g/dl (32-36); Mean Corpuscular Hemoglobin 31.6 pg (26-34); Mean Corpuscular Volume 94.3 fl (80-100); Mean Platelet Volume 10.2 fl (7.4-10.4); Monocytes Absolute Auto 0.6 K/mm3 (0.1-0.6); Monocytes Percent Auto 6.7 % (2.6-8.5); Neutrophils Absolute Auto 6.2 K/mm3 (1.3-6.7); Platelet Count Result 182 k/mm3 (150-375); Red Blood Count 4.05 M/mm3 (4.6-6.20); Red Cell Distribution Width 18.3 % (11.5-14.5); White Blood Count 9.1 K/mm3 (4.5-10.0)
[2021-05-08 08:02] LABS: Glucose Point of Care 158 mg/dl (65-105)
[2021-05-08] MEDS: PYRIDOXINE HCL 50 MG TABLET 100 MG PO (08:10)
[2021-05-08] MEDS: AMIODARONE HCL 200 MG TABLET 400 MG PO (08:10)
[2021-05-08] MEDS: ACIDOPHILUS/BULGARICUS CHEWABLE TABLET 1 TABLET PO ×2 (08:10→16:56)
[2021-05-08] MEDS: APIXABAN 2.5 MG TABLET PO ×2 (08:10→16:55)
[2021-05-08] MEDS: ASPIRIN 81 MG ENTERIC TABLET PO (08:10)
[2021-05-08] MEDS: SENNA/DOCUSATE SODIUM TABLET 1 TAB PO (08:10)
[2021-05-08] MEDS: VITAMIN B CMPLX/VIT C/FOLIC AC 1 CAPSULE 1 CAP PO (08:11)
[2021-05-08] MEDS: MIDODRINE HCL 2.5 MG TABLET 5 MG PO ×3 (08:11→16:50)
[2021-05-08] MEDS: predniSONE 5 MG TABLET PO (08:12)
[2021-05-08] MEDS: PANTOPRAZOLE 40 MG TABLET PO (08:12)
[2021-05-08] MEDS: METOPROLOL TARTRATE 25 MG TABLET PO ×2 (08:13→21:19)
[2021-05-08] MEDS: FERROUS SULFATE 324 MG TABLET PO (08:15)
[2021-05-08] MEDS: BRIMONIDINE TARTRATE 0.2% OP SOLN 5 ML BTL 1 DROP EACH EYE ×3 (08:16→16:54)
[2021-05-08] MEDS: allopurinoL 150 MG TABLET PO (08:16)
[2021-05-08] MEDS: CARBIDOPA/LEVODOPA 25/250 MG TABLET 1 TABLET PO ×2 (08:17→16:56)
[2021-05-08 08:20] LABS: Alanine Aminotransferase 11 U/L (4-50); Albumin Level 2.7 g/dL (3.5-5.1); Alkaline Phosphatase 64 U/L (38-126); Anion Gap 11 mmol/L (8-16); Aspartate Amino Transferase 22 U/L (17-59); Bilirubin,Total 0.6 mg/dL (0.2-1.3); Blood Urea Nitrogen 84 mg/dL (9-20); Calcium 8.9 mg/dL (8.4-10.2); Carbon Dioxide 14 mmol/L (22-30); Chloride 105 mmol/L (98-107); Estimated CRCL calculation 18 ml/min; Estimated Glomerular Filt Rate 18; Glucose 164 mg/dL (65-110); Potassium 4.9 mmol/L (3.4-5.0); Sodium 130 mmol/L (137-145)
[2021-05-08] MEDS: SODIUM BICARBONATE TAB 650 MG TABLET 1300 MG PO ×2 (09:55→16:54)
--- NOTE | 2021-05-08 10:12 | P.PNNP_ITS ---
Progress Note: A&P Assessment and Plan (1) Chronic kidney disease, stage 4 (severe): Code(s): N18.4 - Chronic kidney disease, stage 4 (severe) Status: Chronic Assessment and Plan: * creatinine has fluctuated in the last year ranging from 2.5 - 3.5mg/dl * more recently, it has been running 2.7 - 3.1mg/dl When he is healthy. 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 * This may be due to mild stunning from the AFib plus RVR. * He also has [place] in his urine. Infection versus colonization? (2) Hyperkalemia: Code(s): E87.5 - Hyperkalemia Status: Acute Assessment and Plan: * Potassium is fine today. (3) Kidney transplant status: Code(s): Z94.0 - Kidney transplant status Status: Chronic Assessment and Plan: * s/p transplantation ~ 13 years ago * on tacrolimus and prednisone. He is due for a tacrolimus level. * follows with [facility] (Dr. Olivia) (4) Atrial fibrillation with rapid ventricular response: Code(s): I48.91 - Unspecified atrial fibrillation Status: Acute Assessment and Plan: * Cardiology recommendations noted * rate control strategy * already on anticoagulation (5) HTN (hypertension): Qualifiers: Hypertension type: essential hypertension Qualified Code(s): I10 - Essential (primary) hypertension Code(s): I10 - Essential (primary) hypertension Status: Chronic Assessment and Plan: * Systolic 100-150. * follow trend of hemodynamcs (6) Diabetes: Qualifiers: Diabetes mellitus type: type 2 Diabetes mellitus residential insulin use: with residential use Diabetes mellitus complication status: with neurologic complications Diabetes mellitus complication detail: with autonomic neuropathy Qualified Code(s): E11.43 - Type 2 diabetes mellitus with diabetic autonomic (poly)neuropathy; Z79.4 - gear generator set up operator (current) use of insulin Code(s): E11.9 - Type 2 diabetes mellitus without complications Status: Chronic Assessment and Plan: On Accu-Cheks and sliding-scale insulin Will continue to follow. Subjective Date/time seen: 05/08/21 10:12 Interval history: patient is awake. He is eating some breakfast. No chest pain or shortness of breath. No belly pain. No skin rash. No urologic problems. He has a Davidson catheter in. Exam Narrative: WDWN in NAD skin no rash or subcu nodules head ncat lungs clear to auscultation cor irreg no rub abd BS+ nontender and soft ext no edema. Objective Data Vital Signs Vital Signs: Vital Signs - 24 hr 05/07/21 12:00 05/07/21 16:00 05/07/21 16:02 Temperature 35.6 C L Pulse Rate 77 33 L 71 Respiratory Rate 16 Blood Pressure 139/61 Pulse Oximetry 98 05/07/21 16:05 05/07/21 20:00 05/07/21 21:12 Temperature Pulse Rate 82 78 78 Respiratory Rate 16 Blood Pressure Pulse Oximetry 98 05/07/21 22:00 05/07/21 22:02 05/08/21 00:00 Temperature 36.0 C L Pulse Rate 113 H 112 H Respiratory Rate 18 Blood Pressure 159/96 H Pulse Oximetry 100 100 05/08/21
--- NOTE | 2021-05-08 10:12 | PM.PNNEP ---
Progress Note: A&P Assessment and Plan (1) Chronic kidney disease, stage 4 (severe): Code(s): N18.4 - Chronic kidney disease, stage 4 (severe) Status: Chronic Assessment and Plan: creatinine has fluctuated in the last year ranging from 2.5 - 3.5mg/dl more recently, it has been running 2.7 - 3.1mg/dl When he is healthy. 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 This may be due to mild stunning from the AFib plus RVR. He also has [place] in his urine. Infection versus colonization? (2) Hyperkalemia: Code(s): E87.5 - Hyperkalemia Status: Acute Assessment and Plan: Potassium is fine today. (3) Kidney transplant status: Code(s): Z94.0 - Kidney transplant status Status: Chronic Assessment and Plan: s/p transplantation ~ 13 years ago on tacrolimus and prednisone. He is due for a tacrolimus level. follows with [facility] (Dr. Olivia) (4) Atrial fibrillation with rapid ventricular response: Code(s): I48.91 - Unspecified atrial fibrillation Status: Acute Assessment and Plan: Cardiology recommendations noted rate control strategy already on anticoagulation (5) HTN (hypertension): Qualifiers: Hypertension type: essential hypertension Qualified Code(s): I10 - Essential (primary) hypertension Code(s): I10 - Essential (primary) hypertension Status: Chronic Assessment and Plan: Systolic 100-150. follow trend of hemodynamcs (6) Diabetes: Qualifiers: Diabetes mellitus type: type 2 Diabetes mellitus assisted insulin use: with assisted use Diabetes mellitus complication status: with neurologic complications Diabetes mellitus complication detail: with autonomic neuropathy Qualified Code(s): E11.43 - Type 2 diabetes mellitus with diabetic autonomic (poly)neuropathy; Z79.4 - exterminator termite (current) use of insulin Code(s): E11.9 - Type 2 diabetes mellitus without complications Status: Chronic Assessment and Plan: On Accu-Cheks and sliding-scale insulin Will continue to follow. Subjective Date/time seen: 05/08/21 10:12 Interval history: patient is awake. He is eating some breakfast. No chest pain or shortness of breath. No belly pain. No skin rash. No urologic problems. He has a Davidson catheter in. Exam Narrative: WDWN in NAD skin no rash or subcu nodules head ncat lungs clear to auscultation cor irreg no rub abd BS+ nontender and soft ext no edema. Objective Data Vital Signs Vital Signs: Vital Signs - 24 hr 05/07/21 12:00 05/07/21 16:00 05/07/21 16:02 Temperature 35.6 C L Pulse Rate 77 33 L 71 Respiratory Rate 16 Blood Pressure 139/61 Pulse Oximetry 98 05/07/21 16:05 05/07/21 20:00 05/07/21 21:12 Temperature Pulse Rate 82 78 78 Respiratory Rate 16 Blood Pressure Pulse Oximetry 98 05/07/21 22:00 05/07/21 22:02 05/08/21 00:00 Temperature 36.0 C L Pulse Rate 113 H 112 H Respiratory Rate 18 Blood Pressure 159/96 H Pulse Oximetry 100 100 05/08/21 04:00 05/08/21 04:39 05/08/21 08:10 Temperature 37.0 C Pulse Rate 97 115 H 96 Respiratory Rate 17 Blood Pressure 154/108 H Pulse Oximetry 100 05/08/21 08:13 Temperature Pulse Rate 96 Respiratory Rate Blood Pressure Pulse Oximetry Intake/Output Intake/Output: Intake & Output 05/05/21 05/06/21 05/07/21 05/08/21 23:59 23:59 23:59 23:59 Intake Total 1500 1160 1140 70 Output Total 550 1025 Balance 036 478 5478 70 Meds/Results Medications: Active Medications Generic Name Dose Route Start Last Admin Trade Name Freq PRN Reason Stop Dose Admin Acetaminophen 650 mg 05/02/21 03:30 Acetaminophen 325 Mg Tablet PO Q6H PRN Mil
[2021-05-08] MEDS: CARBIDOPA/LEVODOPA 25/100 MG TABLET 2 TABLET PO ×2 (10:54→21:17)
[2021-05-08 11:32] LABS: Glucose Point of Care 179 mg/dl (65-105)
--- NOTE | 2021-05-08 11:45 | PM.IMPN ---
Progress Note: A&P Assessment and Plan (1) Atrial fibrillation with rapid ventricular response: Code(s): I48.91 - Unspecified atrial fibrillation Status: Acute Assessment and Plan: Cardizem drip discontinued per cardiology on 05/03/21 Amiodarone PO 400mg daily Continuous telemetry: looks to be in a rate controlled a fib Continue to monitor Cardiology consult thank you for your help VS are stable Telemonitor EKG shows Afib RVR 132 Metoprolol 25mg PO BID Trend heart rate Heart rate is better controlled in the 70-90 (2) Elevated troponin: Code(s): R77.8 - Other specified abnormalities of plasma proteins Status: Acute Assessment and Plan: Likely secondary to chronic kidney disease and atrial fibrillation 1: 0.076, 0.073, 0.089, which are flat Cardiology on the case Continue to monitor Chest xray shows no acute cardiopulmonary findings (3) Status post transcatheter aortic valve replacement (TAVR) using bioprosthesis: Code(s): Z95.3 - Presence of xenogenic heart valve Status: Acute Assessment and Plan: Stable Continue to monitor (4) Parkinson disease: Code(s): G20 - Parkinson's disease Status: Acute Assessment and Plan: Unchanged Continue carbidopa levodopa (5) Orthostatic hypotension: Code(s): I95.1 - Orthostatic hypotension Status: Acute Assessment and Plan: Unchanged Order orthostatic pressure No antihypertensives on board (6) Chronic kidney disease, stage 4 (severe): Code(s): N18.4 - Chronic kidney disease, stage 4 (severe) Status: Chronic Assessment and Plan: Seems to be worsening current BUN/Cr 82/3.40 Nephrology on the case thank you for your help Avoid nephrotoxic medications Continue to monitor (7) CHF (congestive heart failure), NYHA class I: Code(s): I50.9 - Heart failure, unspecified Status: Chronic Assessment and Plan: Appears euvolemic Daily intake and output Continue to monitor (8) COVID: Code(s): U07.1 - COVID-19 Status: Acute Assessment and Plan: This could be an old finding since the patient tested positive back in november No infiltrates on chest x-ray Continue to monitor Supportive care (9) Fall: Code(s): W19.XXXA - Unspecified fall, initial encounter Status: Acute Assessment and Plan: Fall precautions. No injuries (10) Abdominal pain: Code(s): R10.9 - Unspecified abdominal pain Status: Acute Assessment and Plan: Complains of pain in the abdomen KUB ordered showed non-obstructive pattern, upon further review it looks as if the patient has a stool ball in the right abdomen Mineral oil enema, senna daily, and suppository all give on 05/06/21 Lactic acid 0.9 Nauseous complaints zofran ordered (11) Hypoglycemia: Code(s): E16.2 - Hypoglycemia, unspecified Status: Acute Assessment and Plan: Glucose stable today and is 170 Hold all insulins Seems like it has stabilized Continue to trend (12) Constipation: Code(s): K59.00 - Constipation, unspecified Status: Acute Assessment and Plan: Abd xray shows what looks to be a fecal ball Enema, senna, and suppository ordered Seems to be getting better as the patient is eating and doing well (13) Hyperkalemia: Code(s): E87.5 - Hyperkalemia Status: Acute Assessment and Plan: K is 4.9 Nephrology consult thank you for your help Could be from renal failure Has adequate output (14) Diabetes type 2, controlled: Code(s): E11.9 - Type 2 diabetes mellitus without complications Status: Acute Assessment and Plan: Glucose 170 SSI Hypoglycemia protocol trend glucose Accu-cheks Adjust therapy as indicated Time Spent With Patient Time with patient: Greater than 35 minutes Subjective Date/ti
--- NOTE | 2021-05-08 13:11 | PCOTNOTE ---
Patient eating lunch x1; declined pm treatment due to No back pain right now and resting comfortably in bed.
[2021-05-08] MEDS: INSULIN ASPART (*BKC) 100 UNITS/ML SUB-Q (16:54)
[2021-05-08 17:04] LABS: Glucose Point of Care 257 mg/dl (65-105)
--- NOTE | 2021-05-08 17:46 | PM.PNCARD ---
Progress Note: A&P Assessment and Plan (1) COVID: Code(s): U07.1 - COVID-19 Status: Acute Assessment and Plan: Per hospitalist. No longer requiring oxygen. (2) Parkinson disease: Code(s): G20 - Parkinson's disease Status: Acute (3) Status post transcatheter aortic valve replacement (TAVR) using bioprosthesis: Code(s): Z95.3 - Presence of xenogenic heart valve Status: Acute Assessment and Plan: Functioning normally (4) Atrial fibrillation with rapid ventricular response: Code(s): I48.91 - Unspecified atrial fibrillation Status: Acute Assessment and Plan: His rate controlled. Continue amiodarone. 400 mg daily Continue metoprolol 25 mg p.o. b.i.d. Continue Eliquis 2.5 mg daily Subjective Date/time seen: 05/08/21 17:46 Interval history: Follow-up visit in this 75-year-old man with: Recurrent atrial flutter/fibrillation with RVR. Patient was not greatly symptomatic with this on admission. He has been placed on an oral loading dose of amiodarone. For the last couple of days rhythm has been stable and well rate controlled. Low-dose of amiodarone has been added to this. Recent problematic orthostatic hypotension with discontinuance of multiple medications during recent hospitalization. Patient with previous TAVR and renal transplant receives most of his care at [facility]. 04/26/2021: Appears to be in no distress upon entering the room. Reports that he is experiencing some nausea this morning but so far no emesis. Date of service 05/08/2021: Patient without complaints. Not requiring oxygen. Telemetry shows AFib rate 80-115 beats per minute. Review of Systems Constitutional: Constitutional: Reports no additional constitutional complaints Eyes: Eyes: Reports no additional eye complaints ENT: Denies epistaxis Cardiovascular: Cardiovascular: Denies chest pain, Denies pedal edema, Denies lightheadedness and Denies palpitations Respiratory: Respiratory: Denies cough, Reports dyspnea and Reports dyspnea on exertion Gastrointestinal: Gastrointestinal: Denies abdominal pain and Reports nausea (Seems to be resolving) Genitourinary: Genitourinary: Denies dysuria Musculoskeletal: Musculoskeletal: Reports no additional musculoskeletal complaints Integumentary/Breasts: Skin/Breast: Denies rash Neurologic: Reports system reviewed and no additional complaints, except as documented and Reports confusion Psychiatric: Psychiatric: Reports behavioral changes (Confused and delayed responses) Exam Narrative: On my arrival patient had a blank stare, looking at the ceiling, mouth open; I had to evaluate patient closely to make sure he was still breathing. Const: General: comfortable and no acute distress HENMT: General nose exam: no epistaxis Mouth: Yes dry mucous membranes Eyes: EOM: EOMs intact bilaterally Neck: Neck: supple Resp: Effort & Inspection: normal respiratory effort Auscultation: clear to auscultation bilaterally Cardio: Rate: regular rate Rhythm: abnormal rhythm irregularly irregular Heart sounds: no murmurs GI: GI Palp: Yes Soft to palpation and No Tenderness to palpation present (GI) Skin: General skin exam: no rashes or lesions noted Neuro: Cognition (Neuro): abnormal cognition Motor exam (neuro): tone not normal throughout Other: Generalized weakness. Very slow to respond to questions. Thinks he will is at home, later a Hospital in [place], when asked what month it was he answered Sunday. He is not sure why he is here. Extrem: General: no edema and no pedal edema Psych: Mental Status: mental status grossly abnormal Other: Withdrawn and slow to respond Objective Data Vital Signs Vital Signs: Vital Signs - 24 hr 05/07/21 20:00 05/07/21 21:12 05/07/21 22:00 Temperature Pulse Rate 78 78 Respiratory Rate 16 Blood Pressure Pulse Oximetry 98 100 05/07/21 22:02 05/08/21 0
[2021-05-08] MEDS: ATORVASTATIN 40 MG TABLET PO (21:17)
[2021-05-08] MEDS: TAMSULOSIN HCL 0.4 MG CAPSULE PO (21:17)
[2021-05-08] MEDS: VENLAFAXINE HCL XR 75 MG CAP.ER.24H PO (21:17)
[2021-05-08 21:26] LABS: Glucose Point of Care 207 mg/dl (65-105)
[2021-05-09] VITALS (10 sets, daily range): BP systolic 130–144; BP diastolic 77–93; PULSE 55–115; RESP 16; TEMP 36–36.1; O2SAT 100
--- NOTE | 2021-05-09 07:45 | P.PNNP_ITS ---
Progress Note: A&P Assessment and Plan (1) Chronic kidney disease, stage 4 (severe): Code(s): N18.4 - Chronic kidney disease, stage 4 (severe) Status: Chronic Assessment and Plan: * creatinine has fluctuated in the last year ranging from 2.5 - 3.5mg/dl * more recently, it has been running 2.7 - 3.1mg/dl When he is healthy. 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 * This may be due to mild stunning from the AFib plus RVR. * He also has [place] in his urine. Infection versus colonization? * Labs are pending. (2) Hyperkalemia: Code(s): E87.5 - Hyperkalemia Status: Acute Assessment and Plan: * Potassium Has been better. Today's labs are pending. (3) Kidney transplant status: Code(s): Z94.0 - Kidney transplant status Status: Chronic Assessment and Plan: * s/p transplantation ~ 13 years ago * on tacrolimus and prednisone. * follows with [facility] (Dr. Olivia) * tacrolimus level is pending (4) Atrial fibrillation with rapid ventricular response: Code(s): I48.91 - Unspecified atrial fibrillation Status: Acute Assessment and Plan: * Cardiology recommendations noted * rate control strategy * already on anticoagulation (5) HTN (hypertension): Qualifiers: Hypertension type: essential hypertension Qualified Code(s): I10 - Essential (primary) hypertension Code(s): I10 - Essential (primary) hypertension Status: Chronic Assessment and Plan: * Systolic 100-150. * I do not want to over control in the short run because of his higher creatinine (6) Diabetes: Qualifiers: Diabetes mellitus type: type 2 Diabetes mellitus mcfp insulin use: with mcfp use Diabetes mellitus complication status: with neurologic complications Diabetes mellitus complication detail: with autonomic neuropathy Qualified Code(s): E11.43 - Type 2 diabetes mellitus with diabetic autonomic (poly)neuropathy; Z79.4 - USP (current) use of insulin Code(s): E11.9 - Type 2 diabetes mellitus without complications Status: Chronic Assessment and Plan: On Accu-Cheks and sliding-scale insulin Will continue to follow. Subjective Date/time seen: 05/09/21 07:45 Interval history: patient is awake. He had a good day yesterday. No chest pain or shortness of breath. No belly pain. No skin rash. No urologic problems. He has a Davidson catheter in. He was on respiratory isolation for COVID-19 but it turns out this is just residual from his infection in fall so he is off the isolation now. Exam Narrative: WDWN in NAD skin no rash or subcu nodules head ncat lungs clear to auscultation cor irreg no rub or gallop abd BS+ nontender and soft ext no edema or cyanosis. Objective Data Vital Signs Vital Signs: Vital Signs - 24 hr 05/08/21 08:00 05/08/21 08:10 05/08/21 08:13 Temperature 36.2 C L Pulse Rate 83 96 96 Respiratory Rate 16 Blood Pressure 150/76 H Pulse Oximetry 100 05/08/21 12:00 05/08/21 16:00 05/08/21 20:00 Temperature 36.5 C Pulse Rate 77 53 L 108 H Respiratory Rate 16 Blood Pressure 130/64
--- NOTE | 2021-05-09 07:45 | PM.PNNEP ---
Progress Note: A&P Assessment and Plan (1) Chronic kidney disease, stage 4 (severe): Code(s): N18.4 - Chronic kidney disease, stage 4 (severe) Status: Chronic Assessment and Plan: creatinine has fluctuated in the last year ranging from 2.5 - 3.5mg/dl more recently, it has been running 2.7 - 3.1mg/dl When he is healthy. 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 This may be due to mild stunning from the AFib plus RVR. He also has [place] in his urine. Infection versus colonization? Labs are pending. (2) Hyperkalemia: Code(s): E87.5 - Hyperkalemia Status: Acute Assessment and Plan: Potassium Has been better. Today's labs are pending. (3) Kidney transplant status: Code(s): Z94.0 - Kidney transplant status Status: Chronic Assessment and Plan: s/p transplantation ~ 13 years ago on tacrolimus and prednisone. follows with [facility] (Dr. Olivia) tacrolimus level is pending (4) Atrial fibrillation with rapid ventricular response: Code(s): I48.91 - Unspecified atrial fibrillation Status: Acute Assessment and Plan: Cardiology recommendations noted rate control strategy already on anticoagulation (5) HTN (hypertension): Qualifiers: Hypertension type: essential hypertension Qualified Code(s): I10 - Essential (primary) hypertension Code(s): I10 - Essential (primary) hypertension Status: Chronic Assessment and Plan: Systolic 100-150. I do not want to over control in the short run because of his higher creatinine (6) Diabetes: Qualifiers: Diabetes mellitus type: type 2 Diabetes mellitus custodial insulin use: with exterminator helper use Diabetes mellitus complication status: with neurologic complications Diabetes mellitus complication detail: with autonomic neuropathy Qualified Code(s): E11.43 - Type 2 diabetes mellitus with diabetic autonomic (poly)neuropathy; Z79.4 - long term care phlebotomist (current) use of insulin Code(s): E11.9 - Type 2 diabetes mellitus without complications Status: Chronic Assessment and Plan: On Accu-Cheks and sliding-scale insulin Will continue to follow. Subjective Date/time seen: 05/09/21 07:45 Interval history: patient is awake. He had a good day yesterday. No chest pain or shortness of breath. No belly pain. No skin rash. No urologic problems. He has a Davidson catheter in. He was on respiratory isolation for COVID-19 but it turns out this is just residual from his infection in fall so he is off the isolation now. Exam Narrative: WDWN in NAD skin no rash or subcu nodules head ncat lungs clear to auscultation cor irreg no rub or gallop abd BS+ nontender and soft ext no edema or cyanosis. Objective Data Vital Signs Vital Signs: Vital Signs - 24 hr 05/08/21 08:00 05/08/21 08:10 05/08/21 08:13 Temperature 36.2 C L Pulse Rate 83 96 96 Respiratory Rate 16 Blood Pressure 150/76 H Pulse Oximetry 100 05/08/21 12:00 05/08/21 16:00 05/08/21 20:00 Temperature 36.5 C Pulse Rate 77 53 L 108 H Respiratory Rate 16 Blood Pressure 130/64 Pulse Oximetry 99 05/08/21 21:13 05/08/21 21:19 05/09/21 00:00 Temperature 35.7 C L Pulse Rate 115 H 65 115 H Respiratory Rate 18 Blood Pressure 147/94 H Pulse Oximetry 99 05/09/21 04:00 05/09/21 04:38 Temperature 36.0 C L Pulse Rate 92 55 L Respiratory Rate 16 Blood Pressure 144/89 H Pulse Oximetry 100 Intake/Output Intake/Output: Intake & Output 05/06/21 05/07/21 05/08/21 05/09/21 23:59 23:59 23:59 23:59 Intake Total 1160 1140 1150 120 Output Total 1025 Balance 135 1140 1150 120 Meds/Results Medications: Active Medications Generic Name
[2021-05-09 07:53] LABS: Glucose Point of Care 158 mg/dl (65-105)
[2021-05-09] MEDS: FERROUS SULFATE 324 MG TABLET PO (08:23)
[2021-05-09] MEDS: VITAMIN B CMPLX/VIT C/FOLIC AC 1 CAPSULE 1 CAP PO (08:24)
[2021-05-09] MEDS: METOPROLOL TARTRATE 25 MG TABLET PO ×2 (08:24→20:56)
[2021-05-09] MEDS: DOCUSATE SODIUM 100 MG CAPSULE PO ×2 (08:24→17:05)
[2021-05-09] MEDS: SENNA/DOCUSATE SODIUM TABLET 1 TAB PO (08:24)
[2021-05-09] MEDS: MIDODRINE HCL 2.5 MG TABLET 5 MG PO ×3 (08:24→17:04)
[2021-05-09] MEDS: predniSONE 5 MG TABLET PO (08:24)
[2021-05-09] MEDS: PANTOPRAZOLE 40 MG TABLET PO (08:27)
[2021-05-09] MEDS: APIXABAN 2.5 MG TABLET PO ×2 (08:27→17:04)
[2021-05-09] MEDS: calcitrioL 0.25 MCG CAPSULE 0.5 MCG PO (08:28)
[2021-05-09] MEDS: ACIDOPHILUS/BULGARICUS CHEWABLE TABLET 1 TABLET PO ×2 (08:28→17:05)
[2021-05-09] MEDS: allopurinoL 150 MG TABLET PO (08:28)
[2021-05-09] MEDS: AMIODARONE HCL 200 MG TABLET 400 MG PO (08:28)
[2021-05-09] MEDS: BRIMONIDINE TARTRATE 0.2% OP SOLN 5 ML BTL 1 DROP EACH EYE ×3 (08:29→17:05)
[2021-05-09] MEDS: MICONAZOLE NITRATE 2% CREAM 30 GM TUBE 1 APPLIC TOPICAL (08:29)
[2021-05-09] MEDS: ASPIRIN 81 MG ENTERIC TABLET PO (08:29)
[2021-05-09] MEDS: CARBIDOPA/LEVODOPA 25/250 MG TABLET 1 TABLET PO ×2 (08:30→17:05)
[2021-05-09] MEDS: SODIUM BICARBONATE TAB 650 MG TABLET 1300 MG PO ×2 (08:31→17:05)
[2021-05-09] MEDS: PYRIDOXINE HCL 50 MG TABLET 100 MG PO (08:31)
[2021-05-09 09:49] LABS: Albumin Level 2.9 g/dL (3.5-5.1); Anion Gap 7 mmol/L (8-16); Blood Urea Nitrogen 85 mg/dL (9-20); Calcium 8.4 mg/dL (8.4-10.2); Carbon Dioxide 16 mmol/L (22-30); Chloride 109 mmol/L (98-107); Estimated CRCL calculation 18 ml/min; Estimated Glomerular Filt Rate 18; Glucose 176 mg/dL (65-110); Phosphorus 4.5 mg/dL (2.5-4.5); Potassium 5.5 mmol/L (3.4-5.0); Sodium 132 mmol/L (137-145)
[2021-05-09 11:23] LABS: Glucose Point of Care 168 mg/dl (65-105)
--- NOTE | 2021-05-09 11:33 | PCNFU ---
Nutrition Follow-Up Complete: Unintentional wt loss related to atrial fib w/RVR and COVID 19 as evidenced by reported decreased appetite and weight loss of 5lbs Goal: Pt to meet 75% of estimated nutritional needs Pt is progressing towards goal Pt current nutrition is diabetic carb consistent/low potassium diet and dietary supplements Last recorded weight is 80 kg, stable. Bowel Motility: +BM 05/09 reported Labs Reviewed: CO2 16, Cl 109, Alb 2.9, Na 132, K 5.5, GFR 18, Cr 3.3, Glu 168 Meds Noted: zyloprim, pacerone, eliquis, rocaltrol, sinemet, rocephin, colace, ferrous sulfate, home medication, lactinex, lopressor, proamatine, protonix, prednisone, vitamin B6, senokot, sodium bicarbonate, nephrocaps Skin: right buttock friction Additional Notes: Unable to visit with pt due to following COVID precautions. Current nutrition is a diabetic carb consistent/low potassium diet and dietary supplements of Ensure Compact BID providing an additional 220kcal and 9g of protein to increase caloric intake. Reported intake is 25%, 75%, 100%, 0%, and 5%. PO intake appears to be improving. Recommend increase dietary supplement from BID to TID if intake remains under 50%. Agree with diet orders at this time. Will monitor labs, medication, wt, and reported intake every 5 days
--- NOTE | 2021-05-09 11:45 | PM.IMPN ---
Progress Note: A&P Assessment and Plan (1) Atrial fibrillation with rapid ventricular response: Code(s): I48.91 - Unspecified atrial fibrillation Status: Acute Assessment and Plan: Cardizem drip discontinued per cardiology on 05/03/21 Amiodarone PO 400mg daily Continuous telemetry: looks to be in a rate controlled a fib Continue to monitor Cardiology consult thank you for your help VS are stable Telemonitor EKG shows Afib RVR 132 Metoprolol 25mg PO BID Trend heart rate Heart rate is better controlled in the 60-115 (2) Elevated troponin: Code(s): R77.8 - Other specified abnormalities of plasma proteins Status: Acute Assessment and Plan: Likely secondary to chronic kidney disease and atrial fibrillation 1: 0.076, 0.073, 0.089, which are flat Cardiology on the case Continue to monitor Chest xray shows no acute cardiopulmonary findings (3) Status post transcatheter aortic valve replacement (TAVR) using bioprosthesis: Code(s): Z95.3 - Presence of xenogenic heart valve Status: Acute Assessment and Plan: Stable Continue to monitor (4) Parkinson disease: Code(s): G20 - Parkinson's disease Status: Acute Assessment and Plan: Unchanged Continue carbidopa levodopa (5) Orthostatic hypotension: Code(s): I95.1 - Orthostatic hypotension Status: Acute Assessment and Plan: Unchanged Order orthostatic pressure No antihypertensives on board (6) Chronic kidney disease, stage 4 (severe): Code(s): N18.4 - Chronic kidney disease, stage 4 (severe) Status: Chronic Assessment and Plan: Seems to be worsening current BUN/Cr 85/3.30 Nephrology on the case thank you for your help Avoid nephrotoxic medications Continue to monitor (7) CHF (congestive heart failure), NYHA class I: Code(s): I50.9 - Heart failure, unspecified Status: Chronic Assessment and Plan: Appears euvolemic Daily intake and output Continue to monitor (8) COVID: Code(s): U07.1 - COVID-19 Status: Acute Assessment and Plan: This could be an old finding since the patient tested positive back in november No infiltrates on chest x-ray Continue to monitor Supportive care (9) Fall: Code(s): W19.XXXA - Unspecified fall, initial encounter Status: Acute Assessment and Plan: Fall precautions. No injuries (10) Abdominal pain: Code(s): R10.9 - Unspecified abdominal pain Status: Acute Assessment and Plan: Complains of pain in the abdomen KUB ordered showed non-obstructive pattern, upon further review it looks as if the patient has a stool ball in the right abdomen Mineral oil enema, senna daily, and suppository all give on 05/06/21 Lactic acid 0.9 Nauseous complaints zofran ordered (11) Hypoglycemia: Code(s): E16.2 - Hypoglycemia, unspecified Status: Acute Assessment and Plan: Glucose stable today and is 176 Hold all insulins Seems like it has stabilized Continue to trend (12) Constipation: Code(s): K59.00 - Constipation, unspecified Status: Acute Assessment and Plan: Abd xray shows what looks to be a fecal ball Enema, senna, and suppository ordered Seems to be getting better as the patient is eating and doing well (13) Hyperkalemia: Code(s): E87.5 - Hyperkalemia Status: Acute Assessment and Plan: K is 5.5 Nephrology consult thank you for your help Could be from renal failure Has adequate output (14) Diabetes type 2, controlled: Code(s): E11.9 - Type 2 diabetes mellitus without complications Status: Acute Assessment and Plan: Glucose 176 SSI Hypoglycemia protocol trend glucose Accu-cheks Adjust therapy as indicated Subjective Date/time seen: 05/09/21 11:45 Interval history: Date/Time: 05/01/21 2
[2021-05-09] MEDS: CARBIDOPA/LEVODOPA 25/100 MG TABLET 2 TABLET PO ×2 (12:35→20:57)
[2021-05-09 12:56] LABS: EDCOVIDSCREEN Negative (Negative)
--- NOTE | 2021-05-09 13:35 | PM.PNCARD ---
Progress Note: A&P Assessment and Plan (1) Atrial fibrillation and flutter: Code(s): I48.91 - Unspecified atrial fibrillation; I48.92 - Unspecified atrial flutter Status: Acute Assessment and Plan: Heart rate reasonably controlled in atrial flutter with variable AV block. Telemetry for now. Continue Amiodarone 400 mg daily Continue metoprolol 25 mg p.o. b.i.d. Potentially problematic if HR suboptimally controlled given hypotension and fall risk. Continue Eliquis 2.5 mg daily, caution with ambulation to avoid risk for falls and injuries with bleeding. (2) Orthostatic hypotension: Code(s): I95.1 - Orthostatic hypotension Status: Acute Assessment and Plan: Monitor closely. Stable at present. Orthostatics not obtained recently but asymptomatic current. Continue Midodrine 5mg TID (3) Status post transcatheter aortic valve replacement (TAVR) using bioprosthesis: Code(s): Z95.3 - Presence of xenogenic heart valve Status: Acute Assessment and Plan: TAVR functioning normally (4) Parkinson disease: Code(s): G20 - Parkinson's disease Status: Acute Assessment and Plan: Per primary service. [place] to be contributing to h/o orthostasis (5) COVID: Code(s): U07.1 - COVID-19 Status: Acute Assessment and Plan: Per hospitalist. No longer requiring oxygen. Subjective Date/time seen: Date of service: 05/09/21 13:35 Interval history: Follow-up visit in this 75-year-old man with: Recurrent atrial flutter/fibrillation with RVR, recent problematic orthostatic hypotension with discontinuance of multiple medications during recent hospitalization. Patient with previous TAVR and renal transplant receives most of his care at [facility]. 04/26/2021: Appears to be in no distress upon entering the room. Reports that he is experiencing some nausea this morning but so far no emesis. 05/08/2021: Patient without complaints. Not requiring oxygen. Telemetry shows AFib rate 80-115 beats per minute. 05/09/21: Denies chest pain, shortness of breath or dizziness. Of fevers. No palpitations. He is currently in atrial flutter with variable AV block tolerating metoprolol 25 mg twice daily and amiodarone 400 mg daily, apixaban 2.5 mg twice daily. Review of Systems Constitutional: Constitutional: Reports no additional constitutional complaints and Reports weakness Eyes: Eyes: Reports no additional eye complaints ENT: Reports system reviewed and no additional complaints, except as documented and Denies epistaxis Cardiovascular: Cardiovascular: Reports no additional cardiovascular complaints, Denies chest pain, Denies pedal edema, Denies lightheadedness, Denies palpitations, Reports dyspnea and Reports dyspnea on exertion Respiratory: Respiratory: Denies cough, Reports dyspnea and Reports dyspnea on exertion Gastrointestinal: Gastrointestinal: Reports no additional gastrointestinal complaints, Denies abdominal pain and Reports nausea (Seems to be resolving) Genitourinary: Genitourinary: Denies dysuria Musculoskeletal: Musculoskeletal: Reports no additional musculoskeletal complaints Integumentary/Breasts: Skin/Breast: Reports system reviewed and no additional complaints, except as docu and Denies rash Neurologic: Reports system reviewed and no additional complaints, except as documented, Reports behavioral changes (Confused and delayed responses), Reports confusion and Reports weakness Psychiatric: Psychiatric: Reports no additional psychiatric complaints, Reports behavioral changes (Confused and delayed responses) and Reports confusion Endocrine: Endocrine: Reports no additional endocrine complaints and Denies palpitations Hematologic/Lymphatic: Hematologic/Lymphatic: Reports no additional hematologic/lymphatic complaints Allergic/Immunologic: Allergic/Immunologic: Reports no additional allergic/immunologic complaints Exam Narrative:
[2021-05-09 16:17] LABS: Glucose Point of Care 230 mg/dl (65-105)
[2021-05-09] MEDS: INSULIN ASPART (*BKC) 100 UNITS/ML SUB-Q (17:07)
[2021-05-09] MEDS: ATORVASTATIN 40 MG TABLET PO (20:56)
[2021-05-09] MEDS: TAMSULOSIN HCL 0.4 MG CAPSULE PO (20:56)
[2021-05-09] MEDS: LATANOPROST 0.005% OP SOLN 2.5 ML BTL 1 DROP EACH EYE (20:57)
[2021-05-09] MEDS: VENLAFAXINE HCL XR 75 MG CAP.ER.24H PO (20:57)
[2021-05-09 21:07] LABS: Glucose Point of Care 215 mg/dl (65-105)
[2021-05-10] VITALS (11 sets, daily range): BP systolic 123–150; BP diastolic 74–99; PULSE 60–122; RESP 18–20; TEMP 36.1–36.7; O2SAT 98–100
[2021-05-10 06:42] LABS: Basophils Percent Auto 0.2 % (0.2-1.2); Eosinophils Absolute Auto 0.1 K/mm3 (0-0.3); Eosinophils Percent Auto 0.6 % (0-4.4); Hematocrit 35.4 % (42.0-52.0); Hemoglobin 11.9 g/dL (14.0-18.0); Lymphocytes Absolute Auto 2.03 K/mm3 (0.9-3.2); Lymphocytes Percent Auto 19.3 % (18.3-44.2); Mean Corpuscular HGB Conc 33.6 g/dl (32-36); Mean Corpuscular Hemoglobin 31.4 pg (26-34); Mean Corpuscular Volume 93.4 fl (80-100); Mean Platelet Volume 10.4 fl (7.4-10.4); Monocytes Absolute Auto 0.6 K/mm3 (0.1-0.6); Monocytes Percent Auto 5.8 % (2.6-8.5); Neutrophils Absolute Auto 7.7 K/mm3 (1.3-6.7); Neutrophils Percent Auto 73.1 % (45.5-73.1); Platelet Count Result 181 k/mm3 (150-375); Red Blood Count 3.79 M/mm3 (4.6-6.20); Red Cell Distribution Width 18.2 % (11.5-14.5); White Blood Count 10.5 K/mm3 (4.5-10.0)
[2021-05-10 07:01] LABS: Alanine Aminotransferase 6 U/L (4-50); Albumin Level 2.6 g/dL (3.5-5.1); Alkaline Phosphatase 59 U/L (38-126); Anion Gap 5 mmol/L (8-16); Aspartate Amino Transferase 16 U/L (17-59); Bilirubin,Total 0.5 mg/dL (0.2-1.3); Blood Urea Nitrogen 82 mg/dL (9-20); Calcium 8.4 mg/dL (8.4-10.2); Carbon Dioxide 18 mmol/L (22-30); Chloride 110 mmol/L (98-107); Estimated CRCL calculation 19 ml/min; Estimated Glomerular Filt Rate 19; Glucose 180 mg/dL (65-110); Potassium 4.9 mmol/L (3.4-5.0); Sodium 133 mmol/L (137-145)
--- NOTE | 2021-05-10 07:38 | P.PNNP_ITS ---
Progress Note: A&P Assessment and Plan (1) Chronic kidney disease, stage 4 (severe): Code(s): N18.4 - Chronic kidney disease, stage 4 (severe) Status: Chronic Assessment and Plan: * creatinine has fluctuated in the last year ranging from 2.5 - 3.5mg/dl * more recently, it has been running 2.7 - 3.1mg/dl When he is healthy. 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 * This may be due to mild stunning from the AFib plus RVR. * He also has [place] in his urine. Infection versus colonization? * His Davidson catheter is out. I asked nursing to do a bladder scan and he has 200cc of urine in his bladder. Will repeat this this afternoon. (2) Hyperkalemia: Code(s): E87.5 - Hyperkalemia Status: Acute Assessment and Plan: * Potassium Has been better. Today's labs are pending. (3) Kidney transplant status: Code(s): Z94.0 - Kidney transplant status Status: Chronic Assessment and Plan: * s/p transplantation ~ 13 years ago * on tacrolimus and prednisone. * follows with [facility] (Dr. Olivia) * tacrolimus level is pending (4) Atrial fibrillation with rapid ventricular response: Code(s): I48.91 - Unspecified atrial fibrillation Status: Acute Assessment and Plan: * Cardiology recommendations noted * rate control strategy * already on anticoagulation (5) HTN (hypertension): Qualifiers: Hypertension type: essential hypertension Qualified Code(s): I10 - Essential (primary) hypertension Code(s): I10 - Essential (primary) hypertension Status: Chronic Assessment and Plan: * Systolic 100-150. * I do not want to over control in the short run because of his higher creatinine (6) Diabetes: Qualifiers: Diabetes mellitus type: type 2 Diabetes mellitus termite control service representative insulin use: with shelter use Diabetes mellitus complication status: with neurologic complications Diabetes mellitus complication detail: with autonomic neuropathy Qualified Code(s): E11.43 - Type 2 diabetes mellitus with diabetic autonomic (poly)neuropathy; Z79.4 - termite control service representative (current) use of insulin Code(s): E11.9 - Type 2 diabetes mellitus without complications Status: Chronic Assessment and Plan: On Accu-Cheks and sliding-scale insulin Will continue to follow. Subjective Date/time seen: 05/10/21 07:39 Interval history: patient is awake. His Davidson catheter is up. He has depends on. No chest pain or shortness of breath. He was on respiratory isolation for COVID-19 but it turns out this is just residual from his infection in fall so he is off the isolation now. Exam Narrative: WDWN in NAD skin no rash or subcu nodules head ncat lungs clear cor irreg no rub or gallop abd BS+ nontender and soft ext no edema or cyanosis. Objective Data Vital Signs Vital Signs: Vital Signs - 24 hr 05/09/21 08:00 05/09/21 08:24 05/09/21 08:28 Temperature 36.1 C L Pulse Rate 88 60 60 Respiratory Rate 16 Blood Pressure 130/77 Pulse Oximetry 100 05/09/21 12:00 05/09/21 16:00 05/09/21 20:00 Temperature 36.0 C L
--- NOTE | 2021-05-10 07:38 | PM.PNNEP ---
Progress Note: A&P Assessment and Plan (1) Chronic kidney disease, stage 4 (severe): Code(s): N18.4 - Chronic kidney disease, stage 4 (severe) Status: Chronic Assessment and Plan: creatinine has fluctuated in the last year ranging from 2.5 - 3.5mg/dl more recently, it has been running 2.7 - 3.1mg/dl When he is healthy. 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 This may be due to mild stunning from the AFib plus RVR. He also has [place] in his urine. Infection versus colonization? His Davidson catheter is out. I asked nursing to do a bladder scan and he has 200cc of urine in his bladder. Will repeat this this afternoon. (2) Hyperkalemia: Code(s): E87.5 - Hyperkalemia Status: Acute Assessment and Plan: Potassium Has been better. Today's labs are pending. (3) Kidney transplant status: Code(s): Z94.0 - Kidney transplant status Status: Chronic Assessment and Plan: s/p transplantation ~ 13 years ago on tacrolimus and prednisone. follows with [facility] (Dr. Olivia) tacrolimus level is pending (4) Atrial fibrillation with rapid ventricular response: Code(s): I48.91 - Unspecified atrial fibrillation Status: Acute Assessment and Plan: Cardiology recommendations noted rate control strategy already on anticoagulation (5) HTN (hypertension): Qualifiers: Hypertension type: essential hypertension Qualified Code(s): I10 - Essential (primary) hypertension Code(s): I10 - Essential (primary) hypertension Status: Chronic Assessment and Plan: Systolic 100-150. 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 Subjective Date/time seen: 05/10/21 07:39 Interval history: patient is awake. His Davidson catheter is up. He has depends on. No chest pain or shortness of breath. He was on respiratory isolation for COVID-19 but it turns out this is just residual from his infection in fall so he is off the isolation now. Exam Narrative: WDWN in NAD skin no rash or subcu nodules head ncat lungs clear cor irreg no rub or gallop abd BS+ nontender and soft ext no edema or cyanosis. Objective Data Vital Signs Vital Signs: Vital Signs - 24 hr 05/09/21 08:00 05/09/21 08:24 05/09/21 08:28 Temperature 36.1 C L Pulse Rate 88 60 60 Respiratory Rate 16 Blood Pressure 130/77 Pulse Oximetry 100 05/09/21 12:00 05/09/21 16:00 05/09/21 20:00 Temperature 36.0 C L Pulse Rate 81 110 H 114 H Respiratory Rate 16 Blood Pressure 139/93 H Pulse Oximetry 100 05/09/21 20:56 05/10/21 00:00 05/10/21 04:00 Temperature 36.7 C Pulse Rate 58 L 114 H 84 Respiratory Rate 20 Blood Pressure 139/93 H Pulse Oximetry 100 Intake/Output Intake/Output: Intake & Output 05/07/21 05/08/21 05/09/21 05/10/21 23:59 23:59 23:59 23:59 Intake Total 1140 1150 1319 150 Output Total 50 Balance 1140 1150 1319 100 Meds/Results Medications: Active Medications Generic Name Dose Route Start Last Admin Trade Name Freq PRN Re
[2021-05-10 08:14] LABS: Glucose Point of Care 171 mg/dl (65-105)
[2021-05-10] MEDS: PANTOPRAZOLE 40 MG TABLET PO (09:05)
[2021-05-10] MEDS: PYRIDOXINE HCL 50 MG TABLET 100 MG PO (09:08)
[2021-05-10] MEDS: ASPIRIN 81 MG ENTERIC TABLET PO (09:08)
[2021-05-10] MEDS: MIDODRINE HCL 2.5 MG TABLET 5 MG PO ×2 (09:08→12:47)
[2021-05-10] MEDS: SENNA/DOCUSATE SODIUM TABLET 1 TAB PO (09:09)
[2021-05-10] MEDS: ACIDOPHILUS/BULGARICUS CHEWABLE TABLET 1 TABLET PO (09:09)
[2021-05-10] MEDS: predniSONE 5 MG TABLET PO (09:09)
[2021-05-10] MEDS: CARBIDOPA/LEVODOPA 25/250 MG TABLET 1 TABLET PO (09:09)
[2021-05-10] MEDS: AMIODARONE HCL 200 MG TABLET 400 MG PO (09:10)
[2021-05-10] MEDS: SODIUM BICARBONATE TAB 650 MG TABLET 1300 MG PO (09:13)
[2021-05-10] MEDS: DOCUSATE SODIUM 100 MG CAPSULE PO (09:13)
[2021-05-10] MEDS: METOPROLOL TARTRATE 25 MG TABLET PO ×2 (09:14→20:24)
[2021-05-10] MEDS: FERROUS SULFATE 324 MG TABLET PO (09:14)
[2021-05-10] MEDS: allopurinoL 150 MG TABLET PO (09:14)
[2021-05-10] MEDS: VITAMIN B CMPLX/VIT C/FOLIC AC 1 CAPSULE 1 CAP PO (09:14)
[2021-05-10] MEDS: APIXABAN 2.5 MG TABLET PO (09:15)
[2021-05-10] MEDS: MICONAZOLE NITRATE 2% CREAM 30 GM TUBE 1 APPLIC TOPICAL ×2 (09:16→20:25)
[2021-05-10] MEDS: BRIMONIDINE TARTRATE 0.2% OP SOLN 5 ML BTL 1 DROP EACH EYE ×2 (09:16→12:47)
[2021-05-10] MEDS: BISACODYL 10 MG SUPPOSITORY RECTAL (09:21)
[2021-05-10 12:13] LABS: Glucose Point of Care 221 mg/dl (65-105)
--- NOTE | 2021-05-10 12:15 | PM.IMPN ---
Progress Note: A&P Assessment and Plan (1) Atrial fibrillation with rapid ventricular response: Code(s): I48.91 - Unspecified atrial fibrillation Status: Acute Assessment and Plan: Cardizem drip discontinued per cardiology on 05/03/21 Amiodarone PO 400mg daily Continuous telemetry: looks to be in a rate controlled a fib Continue to monitor Cardiology consult thank you for your help VS are stable Telemonitor EKG shows Afib RVR 132 Metoprolol 25mg PO BID Trend heart rate Heart rate is better controlled in the 60-115 (2) Elevated troponin: Code(s): R77.8 - Other specified abnormalities of plasma proteins Status: Acute Assessment and Plan: Likely secondary to chronic kidney disease and atrial fibrillation 1: 0.076, 0.073, 0.089, which are flat Cardiology on the case Continue to monitor Chest xray shows no acute cardiopulmonary findings (3) Status post transcatheter aortic valve replacement (TAVR) using bioprosthesis: Code(s): Z95.3 - Presence of xenogenic heart valve Status: Acute Assessment and Plan: Stable Continue to monitor (4) Parkinson disease: Code(s): G20 - Parkinson's disease Status: Acute Assessment and Plan: Unchanged Continue carbidopa levodopa (5) Orthostatic hypotension: Code(s): I95.1 - Orthostatic hypotension Status: Acute Assessment and Plan: Unchanged Order orthostatic pressure No antihypertensives on board (6) Chronic kidney disease, stage 4 (severe): Code(s): N18.4 - Chronic kidney disease, stage 4 (severe) Status: Chronic Assessment and Plan: Seems to be worsening current BUN/Cr 82/3.20 Nephrology on the case thank you for your help Avoid nephrotoxic medications Continue to monitor (7) CHF (congestive heart failure), NYHA class I: Code(s): I50.9 - Heart failure, unspecified Status: Chronic Assessment and Plan: Appears euvolemic Daily intake and output Continue to monitor (8) COVID: Code(s): U07.1 - COVID-19 Status: Acute Assessment and Plan: This could be an old finding since the patient tested positive back in november No infiltrates on chest x-ray Continue to monitor Supportive care (9) Fall: Code(s): W19.XXXA - Unspecified fall, initial encounter Status: Acute Assessment and Plan: Fall precautions. No injuries (10) Abdominal pain: Code(s): R10.9 - Unspecified abdominal pain Status: Acute Assessment and Plan: Complains of pain in the abdomen KUB ordered showed non-obstructive pattern, upon further review it looks as if the patient has a stool ball in the right abdomen Mineral oil enema, senna daily, and suppository all give on 05/06/21 Lactic acid 0.9 Nauseous complaints zofran ordered (11) Hypoglycemia: Code(s): E16.2 - Hypoglycemia, unspecified Status: Acute Assessment and Plan: Glucose stable today and is 180 Hold all insulins Seems like it has stabilized Continue to trend (12) Constipation: Code(s): K59.00 - Constipation, unspecified Status: Acute Assessment and Plan: Abd xray shows what looks to be a fecal ball Enema, senna, and suppository ordered Seems to be getting better as the patient is eating and doing well (13) Hyperkalemia: Code(s): E87.5 - Hyperkalemia Status: Acute Assessment and Plan: K is 4.9 Nephrology consult thank you for your help Could be from renal failure Has adequate output (14) Diabetes type 2, controlled: Code(s): E11.9 - Type 2 diabetes mellitus without complications Status: Acute Assessment and Plan: Glucose 180 SSI Hypoglycemia protocol trend glucose Accu-cheks Adjust therapy as indicated Time Spent With Patient Time with patient: Greater than 35 minutes Subjective Date/t
[2021-05-10] MEDS: CARBIDOPA/LEVODOPA 25/100 MG TABLET 2 TABLET PO ×2 (12:46→20:23)
[2021-05-10] MEDS: INSULIN ASPART (*BKC) 100 UNITS/ML SUB-Q (12:49)
--- NOTE | 2021-05-10 16:02 | PM.PNCARD ---
Progress Note: A&P Assessment and Plan (1) Atrial fibrillation and flutter: Code(s): I48.91 - Unspecified atrial fibrillation; I48.92 - Unspecified atrial flutter Status: Acute Assessment and Plan: Heart rate reasonably controlled in atrial flutter with variable AV block. Telemetry for now. Continue Amiodarone 400 mg daily. Explained risks, benefits, alternatives with regards to amiodarone use longer term including but not limited to effects on the eyes, thyroid and lungs and any organ system in general. Ideally we want to avoid amiodarone if possible, however, he has not been well controlled otherwise. We discussed repeat atrial flutter ablation which is not performed at this institution. No clear benefit of transfer at this time to an outside hospital for ablation specifically, however, as an outpatient referral is quite reasonable. She verbalized understanding. All questions answered to her satisfaction. Continue metoprolol 25 mg p.o. b.i.d. Potentially problematic if HR suboptimally controlled given hypotension and fall risk. Continue Eliquis 2.5 mg daily, caution with ambulation to avoid risk for falls and injuries with bleeding. Spent 28 minutes with the patient and his discussing at bedside, chart review, medical decision making. (2) Orthostatic hypotension: Code(s): I95.1 - Orthostatic hypotension Status: Acute Assessment and Plan: Monitor closely. Stable at present. Orthostatics not obtained recently but asymptomatic current. Continue Midodrine 5mg TID Check orthostatics this afternoon and tomorrow morning. If not dangerously orthostatic may consider increasing metoprolol to 50 mg twice daily right knee aware being very cautious in this regard Given his complicated history (3) Status post transcatheter aortic valve replacement (TAVR) using bioprosthesis: Code(s): Z95.3 - Presence of xenogenic heart valve Status: Acute Assessment and Plan: TAVR functioning normally. No acute issues. (4) Parkinson disease: Code(s): G20 - Parkinson's disease Status: Acute Assessment and Plan: Per primary service. [place] to be contributing to h/o orthostasis (5) COVID: Code(s): U07.1 - COVID-19 Status: Acute Assessment and Plan: Per hospitalist. No longer requiring oxygen. Subjective Date/time seen: Date of service: 05/10/21 16:02 Interval history: Follow-up visit in this 75-year-old man with: Recurrent atrial flutter/fibrillation with RVR, recent problematic orthostatic hypotension with discontinuance of multiple medications during recent hospitalization. Patient with previous TAVR and renal transplant receives most of his care at [facility]. 04/26/2021: Appears to be in no distress upon entering the room. Reports that he is experiencing some nausea this morning but so far no emesis. 05/08/2021: Patient without complaints. Not requiring oxygen. Telemetry shows AFib rate 80-115 beats per minute. 05/09/21: Denies chest pain, shortness of breath or dizziness. Of fevers. No palpitations. He is currently in atrial flutter with variable AV block tolerating metoprolol 25 mg twice daily and amiodarone 400 mg daily, apixaban 2.5 mg twice daily. 05/10/21 at bedside. Very lengthy discussion held with her regarding plan of care. all questions answered to her satisfaction. Patient was sleeping arousable states he is feeling well denies chest pain or shortness of breath or palpitations. Remains in atrial flutter with variable AV block brief intermittent RVR otherwise heart rate generally 90s to 100s. Review of Systems Constitutional: Constitutional: Reports no additional constitutional complaints and Reports weakness Eyes: Eyes: Reports no additional eye complaints ENT: Reports system reviewed and no additional complaints, except as documented and Denies epistaxis Cardiovascular: Cardiovascular: Re
[2021-05-10] MEDS: ATORVASTATIN 40 MG TABLET PO (20:23)
[2021-05-10] MEDS: TAMSULOSIN HCL 0.4 MG CAPSULE PO (20:23)
[2021-05-10] MEDS: VENLAFAXINE HCL XR 75 MG CAP.ER.24H PO (20:23)
[2021-05-10] MEDS: LATANOPROST 0.005% OP SOLN 2.5 ML BTL 1 DROP EACH EYE (20:25)
[2021-05-10 21:10] LABS: Glucose Point of Care 264 mg/dl (65-105)
[2021-05-10 22:52] LABS: Glucose Point of Care 221 mg/dl (65-105)
[2021-05-11] VITALS (17 sets, daily range): BP systolic 114–146; BP diastolic 58–118; PULSE 35–130; RESP 18; TEMP 35.9–36.4; O2SAT 93–100
[2021-05-11 03:09] LABS: Tacrolimus Prograf 6.8 mcg/L
[2021-05-11 06:45] LABS: Basophils Percent Auto 0.3 % (0.2-1.2); Eosinophils Absolute Auto 0.1 K/mm3 (0-0.3); Eosinophils Percent Auto 0.6 % (0-4.4); Hematocrit 36.6 % (42.0-52.0); Hemoglobin 12.2 g/dL (14.0-18.0); Immature Granulocyte Percent A 0.8 % (0-0.5); Lymphocytes Absolute Auto 2.49 K/mm3 (0.9-3.2); Lymphocytes Percent Auto 19.8 % (18.3-44.2); Mean Corpuscular HGB Conc 33.3 g/dl (32-36); Mean Corpuscular Hemoglobin 31.8 pg (26-34); Mean Corpuscular Volume 95.3 fl (80-100); Mean Platelet Volume 10.9 fl (7.4-10.4); Monocytes Absolute Auto 0.7 K/mm3 (0.1-0.6); Monocytes Percent Auto 5.8 % (2.6-8.5); Neutrophils Absolute Auto 9.2 K/mm3 (1.3-6.7); Neutrophils Percent Auto 72.7 % (45.5-73.1); Platelet Count Result 171 k/mm3 (150-375); Red Blood Count 3.84 M/mm3 (4.6-6.20); Red Cell Distribution Width 18.6 % (11.5-14.5); White Blood Count 12.6 K/mm3 (4.5-10.0)
[2021-05-11 06:56] LABS: Alanine Aminotransferase 7 U/L (4-50); Albumin Level 2.7 g/dL (3.5-5.1); Alkaline Phosphatase 61 U/L (38-126); Anion Gap 5 mmol/L (8-16); Aspartate Amino Transferase 20 U/L (17-59); Bilirubin,Total 0.5 mg/dL (0.2-1.3); Blood Urea Nitrogen 78 mg/dL (9-20); Calcium 8.8 mg/dL (8.4-10.2); Carbon Dioxide 18 mmol/L (22-30); Chloride 110 mmol/L (98-107); Estimated CRCL calculation 19 ml/min; Estimated Glomerular Filt Rate 20; Glucose 197 mg/dL (65-110); Phosphorus 3.9 mg/dL (2.5-4.5); Potassium 4.6 mmol/L (3.4-5.0); Sodium 133 mmol/L (137-145)
[2021-05-11] MEDS: ACIDOPHILUS/BULGARICUS CHEWABLE TABLET 1 TABLET PO ×2 (08:23→17:24)
[2021-05-11] MEDS: SODIUM BICARBONATE TAB 650 MG TABLET 1300 MG PO ×2 (08:23→17:25)
[2021-05-11] MEDS: MIDODRINE HCL 2.5 MG TABLET 5 MG PO ×3 (08:23→17:25)
[2021-05-11] MEDS: allopurinoL 150 MG TABLET PO (08:23)
[2021-05-11] MEDS: FERROUS SULFATE 324 MG TABLET PO (08:23)
[2021-05-11] MEDS: PYRIDOXINE HCL 50 MG TABLET 100 MG PO (08:24)
[2021-05-11] MEDS: calcitrioL 0.25 MCG CAPSULE 0.5 MCG PO (08:24)
[2021-05-11] MEDS: DOCUSATE SODIUM 100 MG CAPSULE PO (08:24)
[2021-05-11] MEDS: CARBIDOPA/LEVODOPA 25/250 MG TABLET 1 TABLET PO ×2 (08:24→17:24)
[2021-05-11] MEDS: predniSONE 5 MG TABLET PO (08:25)
[2021-05-11] MEDS: APIXABAN 2.5 MG TABLET PO ×2 (08:25→17:24)
[2021-05-11] MEDS: BRIMONIDINE TARTRATE 0.2% OP SOLN 5 ML BTL 1 DROP EACH EYE ×3 (08:25→17:24)
[2021-05-11] MEDS: METOPROLOL TARTRATE 25 MG TABLET PO ×2 (08:25→11:24)
[2021-05-11] MEDS: AMIODARONE HCL 200 MG TABLET 400 MG PO (08:26)
[2021-05-11] MEDS: SENNA/DOCUSATE SODIUM TABLET 1 TAB PO (08:26)
[2021-05-11] MEDS: ASPIRIN 81 MG ENTERIC TABLET PO (08:26)
[2021-05-11] MEDS: PANTOPRAZOLE 40 MG TABLET PO (08:26)
[2021-05-11] MEDS: MICONAZOLE NITRATE 2% CREAM 30 GM TUBE 1 APPLIC TOPICAL ×2 (08:28→20:14)
[2021-05-11 08:30] LABS: Glucose Point of Care 186 mg/dl (65-105)
--- NOTE | 2021-05-11 10:00 | PM.IMPN ---
Progress Note: A&P Assessment and Plan (1) Diarrhea: Code(s): R19.7 - Diarrhea, unspecified Status: Acute Assessment and Plan: Multiple episodes of diarrhea Pt Reports about 4 BM just today He has been on antibiotics from this visit, last visit, and even before that WBC is slightly elevated at 12.6 Will start oral vanco CMP to check electrolytes (2) Atrial fibrillation with rapid ventricular response: Code(s): I48.91 - Unspecified atrial fibrillation Status: Acute Assessment and Plan: Cardizem drip discontinued per cardiology on 05/03/21 Amiodarone PO 400mg daily Continuous telemetry: looks to be in a rate controlled a fib Continue to monitor Cardiology consult thank you for your help VS are stable Telemonitor EKG shows: Afib RVR 132 Metoprolol 25mg PO BID, increased to 50mg PO BID Trend heart rate Heart rate is better controlled in the 100-120s Cardioversion scheduled for tomorrow (3) Elevated troponin: Code(s): R77.8 - Other specified abnormalities of plasma proteins Status: Acute Assessment and Plan: Likely secondary to chronic kidney disease and atrial fibrillation 1: 0.076, 0.073, 0.089, which are flat Cardiology on the case Continue to monitor Chest xray shows no acute cardiopulmonary findings (4) Status post transcatheter aortic valve replacement (TAVR) using bioprosthesis: Code(s): Z95.3 - Presence of xenogenic heart valve Status: Acute Assessment and Plan: Stable Continue to monitor (5) Parkinson disease: Code(s): G20 - Parkinson's disease Status: Acute Assessment and Plan: Unchanged Continue carbidopa levodopa (6) Orthostatic hypotension: Code(s): I95.1 - Orthostatic hypotension Status: Acute Assessment and Plan: Unchanged Order orthostatic pressure No antihypertensives on board (7) Chronic kidney disease, stage 4 (severe): Code(s): N18.4 - Chronic kidney disease, stage 4 (severe) Status: Chronic Assessment and Plan: Seems to be worsening current BUN/Cr 78/3.10 Nephrology on the case thank you for your help Avoid nephrotoxic medications Continue to monitor (8) CHF (congestive heart failure), NYHA class I: Code(s): I50.9 - Heart failure, unspecified Status: Chronic Assessment and Plan: Appears euvolemic Daily intake and output Continue to monitor (9) COVID: Code(s): U07.1 - COVID-19 Status: Acute Assessment and Plan: This could be an old finding since the patient tested positive back in November This is a historical finding No infiltrates on chest x-ray Continue to monitor Supportive care (10) Fall: Code(s): W19.XXXA - Unspecified fall, initial encounter Status: Acute Assessment and Plan: Fall precautions. No injuries (11) Abdominal pain: Code(s): R10.9 - Unspecified abdominal pain Status: Acute Assessment and Plan: Complains of pain in the abdomen KUB ordered showed non-obstructive pattern, upon further review it looks as if the patient has a stool ball in the right abdomen Mineral oil enema, senna daily, and suppository all give on 05/06/21 Lactic acid 0.9 Reports a pain level of 7/10 Morphine IV ordered zofran ordered (12) Hypoglycemia: Code(s): E16.2 - Hypoglycemia, unspecified Status: Acute Assessment and Plan: Glucose stable today and is 197 Hold all insulins Seems like it has stabilized Continue to trend (13) Constipation: Code(s): K59.00 - Constipation, unspecified Status: Acute Assessment and Plan: Abd xray shows what looks to be a fecal ball Enema, senna, and suppository ordered Seems to be getting better as the patient is eating and doing well (14) Hyperkalemia: Code(s): E87.5 - Hyperkalemia
[2021-05-11] MEDS: VITAMIN B CMPLX/VIT C/FOLIC AC 1 CAPSULE 1 CAP PO (11:24)
[2021-05-11] MEDS: CARBIDOPA/LEVODOPA 25/100 MG TABLET 2 TABLET PO ×2 (11:24→20:15)
[2021-05-11 12:06] LABS: Glucose Point of Care 232 mg/dl (65-105)
--- NOTE | 2021-05-11 12:19 | P.PNNP_ITS ---
Progress Note: A&P Assessment and Plan (1) Chronic kidney disease, stage 4 (severe): Code(s): N18.4 - Chronic kidney disease, stage 4 (severe) Status: Chronic Assessment and Plan: * creatinine has fluctuated in the last year ranging from 2.5 - 3.5mg/dl * more recently, it has been running 2.7 - 3.1mg/dl When he is healthy. 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 * This may be due to mild stunning from the AFib plus RVR. * He also has [place] in his urine. Infection versus colonization? * His Davidson catheter is out. bladder scans being done. Will try to find out the information. (2) Hyperkalemia: Code(s): E87.5 - Hyperkalemia Status: Acute Assessment and Plan: * Potassium Has been better. Today's labs are pending. (3) Kidney transplant status: Code(s): Z94.0 - Kidney transplant status Status: Chronic Assessment and Plan: * s/p transplantation ~ 13 years ago * on tacrolimus and prednisone. * follows with [facility] (Dr. Olivia) * tacrolimus level is pending (4) Atrial fibrillation with rapid ventricular response: Code(s): I48.91 - Unspecified atrial fibrillation Status: Acute Assessment and Plan: * Cardiology recommendations noted * rate control strategy * already on anticoagulation (5) HTN (hypertension): Qualifiers: Hypertension type: essential hypertension Qualified Code(s): I10 - Essential (primary) hypertension Code(s): I10 - Essential (primary) hypertension Status: Chronic Assessment and Plan: * Systolic 100-150. * In the target range (6) Diabetes: Qualifiers: Diabetes mellitus type: type 2 Diabetes mellitus ferry terminal agent insulin use: with ferry terminal agent use Diabetes mellitus complication status: with neurologic complications Diabetes mellitus complication detail: with autonomic neuropathy Qualified Code(s): E11.43 - Type 2 diabetes mellitus with diabetic autonomic (poly)neuropathy; Z79.4 - watermaster (current) use of insulin Code(s): E11.9 - Type 2 diabetes mellitus without complications Status: Chronic Assessment and Plan: On Accu-Cheks and sliding-scale insulin Will continue to follow. Subjective Date/time seen: 05/11/21 12:19 Interval history: patient is awake. His Davidson catheter is out. He has depends on. No chest pain or shortness of breath. He was on respiratory isolation for COVID-19 but it turns out this is just residual from his infection in fall so he is off the isolation now. Exam Narrative: WDWN in NAD skin no rash or subcu nodules head ncat lungs clear cor irreg no rub or gallop abd BS+ nontender and soft ext no edema or cyanosis. Objective Data Vital Signs Vital Signs: Vital Signs - 24 hr 05/10/21 16:00 05/10/21 20:00 05/10/21 20:05 Temperature 36.1 C L Pulse Rate 103 H 111 H 122 H Respiratory Rate 18 18 Blood Pressure 150/99 H 137/92 H Pulse Oximetry 99 98 05/10/21 20:24 05/10/21 22:00 05/11/21 00:16 Temperature 36.1 C L Pulse Rate 100 120 H Respiratory Rate 18 Blood Pressure 150/
--- NOTE | 2021-05-11 12:19 | PM.PNNEP ---
Progress Note: A&P Assessment and Plan (1) Chronic kidney disease, stage 4 (severe): Code(s): N18.4 - Chronic kidney disease, stage 4 (severe) Status: Chronic Assessment and Plan: creatinine has fluctuated in the last year ranging from 2.5 - 3.5mg/dl more recently, it has been running 2.7 - 3.1mg/dl When he is healthy. 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 This may be due to mild stunning from the AFib plus RVR. He also has [place] in his urine. Infection versus colonization? His Davidson catheter is out. bladder scans being done. Will try to find out the information. (2) Hyperkalemia: Code(s): E87.5 - Hyperkalemia Status: Acute Assessment and Plan: Potassium Has been better. Today's labs are pending. (3) Kidney transplant status: Code(s): Z94.0 - Kidney transplant status Status: Chronic Assessment and Plan: s/p transplantation ~ 13 years ago on tacrolimus and prednisone. follows with [facility] (Dr. Olivia) tacrolimus level is pending (4) Atrial fibrillation with rapid ventricular response: Code(s): I48.91 - Unspecified atrial fibrillation Status: Acute Assessment and Plan: Cardiology recommendations noted rate control strategy already on anticoagulation (5) HTN (hypertension): Qualifiers: Hypertension type: essential hypertension Qualified Code(s): I10 - Essential (primary) hypertension Code(s): I10 - Essential (primary) hypertension Status: Chronic Assessment and Plan: Systolic 100-150. In the target range (6) Diabetes: Qualifiers: Diabetes mellitus type: type 2 Diabetes mellitus terminal make up operator insulin use: with senior living use Diabetes mellitus complication status: with neurologic complications Diabetes mellitus complication detail: with autonomic neuropathy Qualified Code(s): E11.43 - Type 2 diabetes mellitus with diabetic autonomic (poly)neuropathy; Z79.4 - [facility] (current) use of insulin Code(s): E11.9 - Type 2 diabetes mellitus without complications Status: Chronic Assessment and Plan: On Accu-Cheks and sliding-scale insulin Will continue to follow. Subjective Date/time seen: 05/11/21 12:19 Interval history: patient is awake. His Davidson catheter is out. He has depends on. No chest pain or shortness of breath. He was on respiratory isolation for COVID-19 but it turns out this is just residual from his infection in fall so he is off the isolation now. Exam Narrative: WDWN in NAD skin no rash or subcu nodules head ncat lungs clear cor irreg no rub or gallop abd BS+ nontender and soft ext no edema or cyanosis. Objective Data Vital Signs Vital Signs: Vital Signs - 24 hr 05/10/21 16:00 05/10/21 20:00 05/10/21 20:05 Temperature 36.1 C L Pulse Rate 103 H 111 H 122 H Respiratory Rate 18 18 Blood Pressure 150/99 H 137/92 H Pulse Oximetry 99 98 05/10/21 20:24 05/10/21 22:00 05/11/21 00:16 Temperature 36.1 C L Pulse Rate 100 120 H Respiratory Rate 18 Blood Pressure 150/99 H Pulse Oximetry 99 93 05/11/21 04:00 05/11/21 05:50 05/11/21 08:00 Temperature 36.1 C L Pulse Rate 104 H 80 128 H Respiratory Rate 18 Blood Pressure 144/87 H Pulse Oximetry 99 05/11/21 08:25 05/11/21 08:26 05/11/21 11:24 Temperature Pulse Rate 117 H 117 H 109 H Respiratory Rate Blood Pressure Pulse Oximetry Intake/Output Intake/Output: Intake & Output 05/08/21 05/09/21 05/10/21 05/11/21 23:59 23:59 23:59 23:59 Intake Total 1150 1319 450 520 Output Total 50 1 Balance 1150 1319 400 519 Meds/Results Medications: Active Medication
--- NOTE | 2021-05-11 12:24 | PM.PNCARD ---
Progress Note: A&P Assessment and Plan (1) Atrial fibrillation and flutter: Code(s): I48.91 - Unspecified atrial fibrillation; I48.92 - Unspecified atrial flutter Status: Acute Assessment and Plan: Heart rate less well controlled in atrial flutter with variable AV block and rapid ventricular response Continue Amiodarone 400 mg daily. Explained risks, benefits, alternatives with regards to amiodarone use longer term including but not limited to effects on the eyes, thyroid and lungs and any organ system in general. Ideally we want to avoid amiodarone if possible, however, he has not been well controlled otherwise. We discussed repeat atrial flutter ablation which is not performed at this institution. No clear benefit of transfer at this time to an outside hospital for ablation specifically, however, as an outpatient referral is quite reasonable. She verbalized understanding. All questions answered to her satisfaction. Continue metoprolol 25 mg p.o. b.i.d. Potentially problematic if HR suboptimally controlled given hypotension and fall risk. Continue Eliquis 2.5 mg daily, caution with ambulation to avoid risk for falls and injuries with bleeding. Given persistence of atrial flutter on amiodarone with more persistently elevated heart rate today feel attempt to restore sinus rhythm with LEILA guided cardioversion with Anesthesiology tomorrow was appropriate. All questions answered to the patient and his 's satisfaction. They both agree to proceed as recommended. NPO after midnight. Do not hold Eliquis. Continue amiodarone and metoprolol. Discussed concerns with regard to orthostatic hypotension, adverse reaction with anesthesia given the fact that he had refused 2 doses of Eliquis this hospitalization and transient hold for several days previous hospitalization LEILA guidance advised to exclude intracardiac thrombus and reduce stroke risk. They understand and agree. Metoprolol increased to 50 mg b.i.d. reasonable. Recommendations to follow. (2) Orthostatic hypotension: Code(s): I95.1 - Orthostatic hypotension Status: Acute Assessment and Plan: Monitor closely. Stable at present. Orthostatics not obtained recently but asymptomatic current. Continue Midodrine 5mg TID Orthostatics as documented suspect under do not feel are accurate. (3) Status post transcatheter aortic valve replacement (TAVR) using bioprosthesis: Code(s): Z95.3 - Presence of xenogenic heart valve Status: Acute Assessment and Plan: TAVR functioning normally. No acute issues. (4) Parkinson disease: Code(s): G20 - Parkinson's disease Status: Acute Assessment and Plan: Per primary service. [place] to be contributing to h/o orthostasis (5) COVID: Code(s): U07.1 - COVID-19 Status: Acute Assessment and Plan: Per hospitalist. No longer requiring oxygen. Subjective Date/time seen: Date of service: 05/11/21 12:24 Interval history: Follow-up visit in this 75-year-old man with: Recurrent atrial flutter/fibrillation with RVR, recent problematic orthostatic hypotension with discontinuance of multiple medications during recent hospitalization. Patient with previous TAVR and renal transplant receives most of his care at [facility]. 04/26/2021: Appears to be in no distress upon entering the room. Reports that he is experiencing some nausea this morning but so far no emesis. 05/08/2021: Patient without complaints. Not requiring oxygen. Telemetry shows AFib rate 80-115 beats per minute. 05/09/21: Denies chest pain, shortness of breath or dizziness. Of fevers. No palpitations. He is currently in atrial flutter with variable AV block tolerating metoprolol 25 mg twice daily and amiodarone 400 mg daily, apixaban 2.5 mg twice daily. 05/10/21 at bedside. Very lengthy discussion held with her regarding plan of care. all questions answered to her satisfac
[2021-05-11] MEDS: INSULIN ASPART (*BKC) 100 UNITS/ML SUB-Q ×2 (12:28→17:25)
--- NOTE | 2021-05-11 12:45 | P.CDI_ITS ---
CDI Query Clarification Request -Covid 19 and this could be an old finding since the patient tested positive back in november have both been documented -In the EMR patient had a positive PCR covid test 11/24/20, then patient had negative rapid tests for covid on 02/09/21, 03/02/21, 04/25/21, positive PCR on 05/01/21 and then negative rapid on 05/09 Please clarify status of covid 19: * Acute/current infection of covid * sequela/residual effect of covid * history of covid * unable to determine <Ana Vazquez - Last Filed: 05/11/21 12:52> Like stated in the note this is an old finding as the patient tested positive in Nov. He does not exhibit any signs or symptoms of covid. <JUAN Toussaint - Last Filed: 05/11/21 13:24>
--- NOTE | 2021-05-11 13:50 | PCNFU ---
Nutrition Follow-Up Complete: Unintentional wt loss related to atrial fib w/RVR and COVID 19 as evidenced by reported decreased appetite and weight loss of 5lbs Goal: Pt to meet 75% of estimated nutritional needs Pt is making progress towards goal Pt current nutrition is diabetic carb consistent/low potassium diet and dietary supplements Last recorded weight is 79.2 kg, up 1.2kg from last reported weight on 05/10/21. Bowel Motility: +BM 05/11 reported - loose stool Labs Reviewed: hgb 12.2, hct 36.6, alb 2.7, Na 133, Cl 110, GFR 20, BUN 78, Cr 3.10, Glu 232 Meds Noted: zyloprim, pacerone, eliquis, rocaltrol, sinemet, colace, ferrous sulfate, home medication, novolog, lactinex, proamatine, protonix, prednisone, vitamin B6, senokot, sodium bicarbonate, nephrocaps Skin: right buttock friction Additional Notes: Current nutrition is a diabetic carb consistent/low potassium diet and dietary supplements of Ensure Compact BID providing an additional 220kcal and 9g of protein to increase caloric intake. Reported intake is 25%, 80%, 90%, 30%, and 70%. PO intake appears to be improving from previous reported intake. Per physician notes, pt is to be d/c soon. Recommend continuing to encouareg intake of diabetic carb consistent/low potassium diet and dietary supplements. Agree with diet orders at this time. Will continue to follow until pt is d/c. Will monitor labs, medication, wt, and reported intake every 5 days
[2021-05-11 14:08] LABS: Alanine Aminotransferase 9 U/L (4-50); Albumin Level 2.9 g/dL (3.5-5.1); Alkaline Phosphatase 62 U/L (38-126); Anion Gap 6 mmol/L (8-16); Aspartate Amino Transferase 19 U/L (17-59); Bilirubin,Total 0.6 mg/dL (0.2-1.3); Blood Urea Nitrogen 76 mg/dL (9-20); Calcium 8.7 mg/dL (8.4-10.2); Carbon Dioxide 18 mmol/L (22-30); Chloride 109 mmol/L (98-107); Estimated CRCL calculation 19 ml/min; Estimated Glomerular Filt Rate 20; Glucose 271 mg/dL (65-110); Potassium 4.6 mmol/L (3.4-5.0); Sodium 133 mmol/L (137-145)
[2021-05-11 15:43] LABS: Glucose Point of Care 248 mg/dl (65-105)
[2021-05-11 17:10] LABS: Glucose Point of Care 238 mg/dl (65-105)
[2021-05-11] MEDS: VANCOMYCIN ORAL 125 MG/2.5 ML SYRUP PO ×2 (17:25→23:34)
[2021-05-11] MEDS: LATANOPROST 0.005% OP SOLN 2.5 ML BTL 1 DROP EACH EYE (20:14)
[2021-05-11] MEDS: TAMSULOSIN HCL 0.4 MG CAPSULE PO (20:14)
[2021-05-11] MEDS: ATORVASTATIN 40 MG TABLET PO (20:14)
[2021-05-11] MEDS: VENLAFAXINE HCL XR 75 MG CAP.ER.24H PO (20:14)
[2021-05-11] MEDS: METOPROLOL TARTRATE 50 MG TAB PO (20:15)
[2021-05-11 22:12] LABS: Glucose Point of Care 180 mg/dl (65-105)
[2021-05-12] VITALS (14 sets, daily range): BP systolic 127–164; BP diastolic 61–110; PULSE 68–140; RESP 16–20; TEMP 35.7–36.6; O2SAT 95–100
[2021-05-12] MEDS: VANCOMYCIN ORAL 125 MG/2.5 ML SYRUP PO ×4 (05:59→23:45)
[2021-05-12 07:12] LABS: Basophils Percent Auto 0.3 % (0.2-1.2); Eosinophils Absolute Auto 0.1 K/mm3 (0-0.3); Eosinophils Percent Auto 0.7 % (0-4.4); Hemoglobin 12.3 g/dL (14.0-18.0); Immature Granulocyte Absolute 0.09 K/mm3 (0.00-0.031); Immature Granulocyte Percent A 0.7 % (0-0.5); Lymphocytes Absolute Auto 2.61 K/mm3 (0.9-3.2); Lymphocytes Percent Auto 19.9 % (18.3-44.2); Mean Corpuscular HGB Conc 33.2 g/dl (32-36); Mean Corpuscular Hemoglobin 31.9 pg (26-34); Mean Corpuscular Volume 96.1 fl (80-100); Mean Platelet Volume 11.5 fl (7.4-10.4); Monocytes Absolute Auto 0.7 K/mm3 (0.1-0.6); Monocytes Percent Auto 5.3 % (2.6-8.5); Neutrophils Absolute Auto 9.6 K/mm3 (1.3-6.7); Neutrophils Percent Auto 73.1 % (45.5-73.1); Platelet Count Result 183 k/mm3 (150-375); Red Blood Count 3.85 M/mm3 (4.6-6.20); Red Cell Distribution Width 19.2 % (11.5-14.5); White Blood Count 13.1 K/mm3 (4.5-10.0)
[2021-05-12 07:17] LABS: Albumin Level 2.7 g/dL (3.5-5.1); Alkaline Phosphatase 63 U/L (38-126); Anion Gap 8 mmol/L (8-16); Aspartate Amino Transferase 16 U/L (17-59); Bilirubin,Total 0.5 mg/dL (0.2-1.3); Blood Urea Nitrogen 74 mg/dL (9-20); Calcium 8.7 mg/dL (8.4-10.2); Carbon Dioxide 17 mmol/L (22-30); Chloride 109 mmol/L (98-107); Estimated CRCL calculation 19 ml/min; Estimated Glomerular Filt Rate 20; Glucose 151 mg/dL (65-110); Potassium 4.5 mmol/L (3.4-5.0); Sodium 134 mmol/L (137-145)
[2021-05-12 07:31] LABS: Alanine Aminotransferase < 6 U/L (4-50)
[2021-05-12 08:34] LABS: Glucose Point of Care 152 mg/dl (65-105)
--- NOTE | 2021-05-12 09:05 | PM.IMPN ---
Progress Note: A&P Assessment and Plan (1) Diarrhea: Code(s): R19.7 - Diarrhea, unspecified Status: Acute Assessment and Plan: Multiple episodes of diarrhea Pt reports many episodes of diarrhea, however, nurse stated that it slowing down He has been on antibiotics from this visit, last visit, and even before that WBC is slightly elevated at 13.1 Continue oral vanco IV fluids Trend labs (2) Atrial fibrillation with rapid ventricular response: Code(s): I48.91 - Unspecified atrial fibrillation Status: Acute Assessment and Plan: Amiodarone PO 400mg daily Continuous telemetry: afib RVR with rate in the 130-140s Continue to monitor Cardiology consult thank you for your help VS are stable EKG shows: Afib RVR 132 Metoprolol 25mg PO BID, increased to 50mg PO BID Trend heart rate Heart rate is better controlled in the 100-120s Cardioversion scheduled 5mg IV metoprolol x 1, and IV fluids, in collaboration with cardiology (3) Elevated troponin: Code(s): R77.8 - Other specified abnormalities of plasma proteins Status: Acute Assessment and Plan: Likely secondary to chronic kidney disease and atrial fibrillation 1: 0.076, 0.073, 0.089, which are flat Cardiology on the case Continue to monitor Chest xray shows no acute cardiopulmonary findings (4) Status post transcatheter aortic valve replacement (TAVR) using bioprosthesis: Code(s): Z95.3 - Presence of xenogenic heart valve Status: Acute Assessment and Plan: Stable Continue to monitor (5) Parkinson disease: Code(s): G20 - Parkinson's disease Status: Acute Assessment and Plan: Unchanged Continue carbidopa levodopa (6) Orthostatic hypotension: Code(s): I95.1 - Orthostatic hypotension Status: Acute Assessment and Plan: Unchanged Orthostatic pressure seems to be more hypertensive L: 132/94, Sittin/81, Standing 142/108 Educated patient and about slow position changes (7) Chronic kidney disease, stage 4 (severe): Code(s): N18.4 - Chronic kidney disease, stage 4 (severe) Status: Chronic Assessment and Plan: Seems to be worsening current BUN/Cr 74/3.10 Nephrology on the case thank you for your help Avoid nephrotoxic medications Continue to monitor (8) CHF (congestive heart failure), NYHA class I: Code(s): I50.9 - Heart failure, unspecified Status: Chronic Assessment and Plan: Appears euvolemic Daily intake and output Continue to monitor Daily weights (9) COVID: Code(s): U07.1 - COVID-19 Status: Acute Assessment and Plan: Resolved at this time This could be an old finding since the patient tested positive back in November This is a historical finding No infiltrates on chest x-ray Continue to monitor Supportive care (10) Fall: Code(s): W19.XXXA - Unspecified fall, initial encounter Status: Acute Assessment and Plan: Fall precautions. No injuries (11) Abdominal pain: Code(s): R10.9 - Unspecified abdominal pain Status: Acute Assessment and Plan: Complains of pain in the abdomen KUB ordered showed non-obstructive pattern, upon further review it looks as if the patient has a stool ball in the right abdomen Mineral oil enema, senna daily, and suppository all give on 05/06/21 Lactic acid 0.9 Reports a pain level of 7/10 Morphine IV ordered zofran ordered (12) Hypoglycemia: Code(s): E16.2 - Hypoglycemia, unspecified Status: Acute Assessment and Plan: Resolved Glucose stable today and is 151 Hold all insulins Seems like it has stabilized Continue to trend (13) Constipation: Code(s): K59.00 - Constipation, unspecified Status: Acute Assessment and Plan: Resolved transitioned to diarrhea
--- NOTE | 2021-05-12 09:18 | PCOTNOTE ---
Began working with patient, attempted to stand patient from EOB with jeffrey steady as patient reported needing to use commode to have BM. Once standing in jeffrey steady frame, patient lost consciousness briefly and this therapist had Lizette RN call a rapid response as patient was unable to be lifted back into bed. Patient treatment not completed this date.
[2021-05-12] MEDS: METOPROLOL TARTRATE INJ 5 MG/5 ML VIAL IV PUSH (09:20)
[2021-05-12] MEDS: MICONAZOLE NITRATE 2% CREAM 30 GM TUBE 1 APPLIC TOPICAL ×2 (09:35→21:04)
[2021-05-12] MEDS: LACTATED RINGERS 1,000 ML 250 ML (09:37)
[2021-05-12] MEDS: LACTATED RINGERS 1,000 ML 75 ML IV CONT (09:37)
[2021-05-12] MEDS: BRIMONIDINE TARTRATE 0.2% OP SOLN 5 ML BTL 1 DROP EACH EYE ×3 (09:38→18:29)
--- NOTE | 2021-05-12 10:51 | PC.NURSE ---
Renetta, RN with chest pain center arrived to floor to transport patient for scheduled LEILA and cardioversion. This RN informed Renetta patient had a rapid response called earlier that morning and he had not received any oral medications yet due to lethargy. This RN reviewed eMAR with Renetta and asked specifically regarding the administration of Eliquis and aspirin. Renetta instructed this RN to hold both medications as patient was scheduled for procedures under general anesthesia and patient must be NPO. Medications were not administered prior to patient leaving the floor.
--- NOTE | 2021-05-12 11:00 | ECG_ITS ---
Measurements Intervals [place] Rate: 95 P: MT: 0 QRS: 261 QRSD: 178 T: 56 QT: 389 QTc: 490 Interpretive Statements ATRIAL FLUTTER/TACHYCARDIA RIGHT BUNDLE BRANCH BLOCK LEFT POSTERIOR FASCICULAR BLOCK BASELINE WANDER I, II, AVR, AVL, AVF ABNORMAL ECG Electronically Signed On 05-12-2021 12:23:08 MUSIC CRITIC by Lokesh Smith D.O.
--- NOTE | 2021-05-12 11:03 | WPDANESEPPF ---
Anes - Initial Pre Proc Eval Procedure: Operation Date: 05/12/21 13:00 Proposed Procedures p Trans Esophageal Echo - Gabriel Cabral MD s Electrical Cardioversion - Gabriel Cabral MD Date/Time: 05/12/21 11:03 Surgeon: Ladonna Ibarra MD Pre Op Diagnosis: atrial fib with RVR Patient Data Age: 75 Gender: M Height: 1.75 m Weight: 83.1 kg Last Vital Signs Temp 35.9 C L 05/12/21 05:47 Pulse 140 H 05/12/21 09:53 Resp 18 05/12/21 05:47 BP 127/61 05/12/21 09:53 Pulse Ox 97 05/12/21 05:47 Allergies Allergy/AdvReac Type Severity Reaction Status Date / Time trimethobenzamide Allergy Severe Loss of Verified 04/12/21 11:13 Consciousness fish oil Allergy Mild Rash Verified 04/12/21 11:13 levofloxacin Allergy Unknown Hives Verified 04/12/21 11:13 metoclopramide AdvReac Severe Other Verified 04/12/21 11:13 ondansetron AdvReac Severe Other Verified 04/12/21 11:13 diphenhydramine AdvReac Unknown aggi Verified 04/12/21 11:13 NSAIDS (Non-Steroidal AdvReac Unknown renal Verified 04/12/21 11:13 Anti-Inflamma insuff Home Medications Medication Instructions Recorded Confirmed Type atorvastatin 40 mg PO HS 02/10/19 05/02/21 History calcitriol 0.5 mcg PO MOWEFR 02/10/19 05/02/21 History fluticasone propionate 2 spray INTRANASAL DAILY PRN 02/10/19 05/02/21 History melatonin 5 mg PO HS PRN 02/10/19 05/02/21 History apixaban 2.5 mg tablet 2.5 mg PO BID 10/01/19 05/02/21 History tacrolimus 1 mg capsule, 1 mg PO BID cap 12/17/19 05/02/21 History immediate-release venlafaxine 75 mg PO HS 05/17/20 05/02/21 History brimonidine 1 drp EACH EYE TID 06/24/20 05/02/21 History prednisone 5 mg PO DAILY 06/24/20 05/02/21 History ferrous sulfate 325 mg (65 mg 325 mg PO DAILY 07/05/20 05/02/21 History iron) tablet omeprazole 40 mg capsule,delayed 40 mg PO DAILY cap 07/05/20 05/02/21 History release Triphrocaps 1 cap PO DAILY 11/24/20 05/02/21 History pyridoxine (vitamin B6) 100 mg PO DAILY 11/24/20 05/02/21 History aspirin 81 mg PO DAILY 11/28/20 05/02/21 History latanoprost 1 drp EACH EYE HS 11/28/20 05/02/21 History carbidopa-levodopa 1 tablet PO 0900,1700 #60 tablet 03/02/21 05/02/21 Rx docusate sodium [Colace] 100 mg PO BID 03/14/21 05/02/21 History polyethylene glycol 3350 [Miralax] 17 g PO BID PRN 03/14/21 05/02/21 History Artificial Tears(pa-eorq-wbcs) 1 drp EACH EYE TID PRN #0 ml 03/16/21 05/02/21 Rx Denita-Bid 1 tab PO BID #0 tablet 03/16/21 05/02/21 Rx acetaminophen [Mapap 650 mg PO Q6H PRN #0 tablet 03/16/21 05/02/21 Rx (acetaminophen)] allopurinol 150 mg PO DAILY #30 tablet 03/16/21 05/02/21 Rx miconazole nitrate 1 applic TOPICAL Q12HR #1 g 03/16/21 05/02/21 Rx insulin regular human 100 unit/mL 1 sliding scale dose SUBCUT 04/05/21 05/02/21 History (3 mL) subcutaneous pen USEASDIRECTD Semglee U-100 Insulin 20 unit SUBCUT HS 04/11/21 05/02/21 History Lantus U-100 Insulin 11 unit SUBCUT QAM #0 ml 04/25/21 05/02/21 Rx midodrine 5 mg PO TID #90 tablet 04/25/21 05/02/21 Rx tamsulosin 0.4 mg PO HS #30 cap 04/25/21 05/02/21 Rx Lactobacillus acidophilus 1 tablet PO BID 05/02/21 05/02/21 History [Acidophilus] carbidopa-levodopa [Sinemet] 1 tablet PO 1100,2100 05/02/21 05/02/21 History Laboratory Tests 05/11/21 05/11/21 05/11/21 11:48 13:40 15:39 WBC RBC Hgb Hct MCV MCH MCHC RDW Plt Count MPV Immature Gran % (Auto) Neut % (Auto) Lymph % (Auto) [place] % (Auto) Eos % (Auto) Baso % (Auto) Lymph # (Auto) [place] # (Auto) Eos # (Auto) Baso # (Auto) Abs Immat Gran (auto) Absolute Neuts (auto) Absolute Nucleated RBC Nucleated RBC % Sodium 133 mmol/L L mmol/L (137-145) Potassium 4.6 mmol/L mm
[2021-05-12 12:26] LABS: Glucose Point of Care 165 mg/dl (65-105)
[2021-05-12] MEDS: ACIDOPHILUS/BULGARICUS CHEWABLE TABLET 1 TABLET PO ×2 (12:37→18:28)
[2021-05-12] MEDS: MIDODRINE HCL 2.5 MG TABLET 5 MG PO ×2 (12:37→18:29)
[2021-05-12] MEDS: CARBIDOPA/LEVODOPA 25/100 MG TABLET 2 TABLET PO ×2 (12:37→21:04)
[2021-05-12] MEDS: CARBIDOPA/LEVODOPA 25/250 MG TABLET 1 TABLET PO ×2 (12:38→18:30)
[2021-05-12] MEDS: SODIUM BICARBONATE TAB 650 MG TABLET 1300 MG PO ×2 (12:38→18:28)
[2021-05-12] MEDS: PANTOPRAZOLE 40 MG TABLET PO (12:38)
[2021-05-12] MEDS: AMIODARONE HCL 200 MG TABLET 400 MG PO (12:38)
[2021-05-12] MEDS: PYRIDOXINE HCL 50 MG TABLET 100 MG PO (12:38)
[2021-05-12] MEDS: VITAMIN B CMPLX/VIT C/FOLIC AC 1 CAPSULE 1 CAP PO (12:38)
[2021-05-12] MEDS: METOPROLOL TARTRATE 50 MG TAB PO ×2 (12:38→21:04)
[2021-05-12] MEDS: APIXABAN 2.5 MG TABLET PO ×2 (12:39→18:29)
[2021-05-12] MEDS: predniSONE 5 MG TABLET PO (12:39)
[2021-05-12] MEDS: FERROUS SULFATE 324 MG TABLET PO (12:39)
[2021-05-12] MEDS: ASPIRIN 81 MG ENTERIC TABLET PO (12:39)
[2021-05-12] MEDS: allopurinoL 150 MG TABLET PO (12:39)
--- NOTE | 2021-05-12 15:00 | PM.PNCARD ---
Progress Note: A&P Assessment and Plan (1) Atrial fibrillation and flutter: Code(s): I48.91 - Unspecified atrial fibrillation; I48.92 - Unspecified atrial flutter Status: Acute Assessment and Plan: Heart rate less well controlled in atrial flutter with variable AV block and rapid ventricular response Continue Amiodarone 400 mg daily. Explained risks, benefits, alternatives with regards to amiodarone use longer term including but not limited to effects on the eyes, thyroid and lungs and any organ system in general. Ideally we want to avoid amiodarone if possible, however, he has not been well controlled otherwise. We discussed repeat atrial flutter ablation which is not performed at this institution. No clear benefit of transfer at this time to an outside hospital for ablation specifically, however, as an outpatient referral is quite reasonable. She verbalized understanding. All questions answered to her satisfaction. Continue metoprolol 25 mg p.o. b.i.d. Potentially problematic if HR suboptimally controlled given hypotension and fall risk. Continue Eliquis 2.5 mg daily, caution with ambulation to avoid risk for falls and injuries with bleeding. Given persistence of atrial flutter on amiodarone with more persistently elevated heart rate today feel attempt to restore sinus rhythm with LEILA guided cardioversion with Anesthesiology tomorrow was appropriate. All questions answered to the patient and his 's satisfaction. They both agree to proceed as recommended. -Once again, will keep patient NPO after midnight for LEILA guided cardioversion with Anesthesiology at 1:00 p.m. Sunday. -As Always, DO NOT HOLD ANY ELIQUIS DOSES. CARDIOVERSION CANNOT BE PERFORMED IF PATIENT IS NOT ADEQUATELY ANTICOAGULATED. -Continue amiodarone and Metoprolol 50 mg b.i.d. -I called patient's and spoke with her at length over the phone as documented above. (2) Orthostatic hypotension: Code(s): I95.1 - Orthostatic hypotension Status: Acute Assessment and Plan: Monitor closely. Stable at present. Orthostatics not obtained recently but asymptomatic current. Continue Midodrine 5mg TID Orthostatics as documented suspect under do not feel are accurate. (3) Status post transcatheter aortic valve replacement (TAVR) using bioprosthesis: Code(s): Z95.3 - Presence of xenogenic heart valve Status: Acute Assessment and Plan: TAVR functioning normally. No acute issues. (4) Parkinson disease: Code(s): G20 - Parkinson's disease Status: Acute Assessment and Plan: Per primary service. [place] to be contributing to h/o orthostasis (5) COVID: Code(s): U07.1 - COVID-19 Status: Acute Assessment and Plan: Per hospitalist. No longer requiring oxygen. Additional Plan 75-year-old man with: Recurrent atrial flutter/fib which is being treated now with the oral loading dose of amiodarone at a modest dose of metoprolol. He is not greatly symptomatic with this. Today I am going to reduce his amiodarone from 1200-400 mg per day. Hopefully at this dosage he will eventually convert back to sinus rhythm. Systemic anticoagulation is already in place. No other cardiac recommendations at this time. Upon discharge follow-up is to occur with his established physicians at the [facility]. If AFib persists cardioversion will be considered at that time. Mateusz Erwin MD [facility] Subjective Date/time seen: Date of service: 05/12/21 15:00 Interval history: Follow-up visit in this 75-year-old man with: Recurrent atrial flutter/fibrillation with RVR, recent problematic orthostatic hypotension with discontinuance of multiple medications during recent hospitalization. Patient with previous TAVR and renal transplant receives most of his care at . 04/26/2021: Appears to be in no distress upon entering the room. Reports that he is experiencing so
--- NOTE | 2021-05-12 16:13 | P.PNNP_ITS ---
Progress Note: A&P Assessment and Plan (1) Chronic kidney disease, stage 4 (severe): Code(s): N18.4 - Chronic kidney disease, stage 4 (severe) Status: Chronic Assessment and Plan: * creatinine has fluctuated in the last year ranging from 2.5 - 3.5mg/dl * more recently, it has been running 2.7 - 3.1mg/dl When he is healthy. 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 * This may be due to mild stunning from the AFib plus RVR. * hopefully creat will impmrove with conversion to NSR (2) Hyperkalemia: Code(s): E87.5 - Hyperkalemia Status: Acute Assessment and Plan: * Potassium Has been better. Today's labs are pending. (3) Kidney transplant status: Code(s): Z94.0 - Kidney transplant status Status: Chronic Assessment and Plan: * s/p transplantation ~ 13 years ago * on tacrolimus and prednisone. * follows with [facility] (Dr. Olivia) * tacrolimus level is 6.8. theraeputic. (4) Atrial fibrillation with rapid ventricular response: Code(s): I48.91 - Unspecified atrial fibrillation Status: Acute Assessment and Plan: * Cardiology recommendations noted * rate control strategy * already on anticoagulation (5) HTN (hypertension): Qualifiers: Hypertension type: essential hypertension Qualified Code(s): I10 - Essential (primary) hypertension Code(s): I10 - Essential (primary) hypertension Status: Chronic Assessment and Plan: * Systolic 100-150. * In the target range (6) Diabetes: Qualifiers: Diabetes mellitus type: type 2 Diabetes mellitus usp insulin use: with apartment property manager use Diabetes mellitus complication status: with neurologic complications Diabetes mellitus complication detail: with autonomic neuropathy Qualified Code(s): E11.43 - Type 2 diabetes mellitus with diabetic autonomic (poly)neuropathy; Z79.4 - alf (current) use of insulin Code(s): E11.9 - Type 2 diabetes mellitus without complications Status: Chronic Assessment and Plan: On Accu-Cheks and sliding-scale insulin Will continue to follow. Subjective Date/time seen: 05/12/21 16:13 Interval history: patient is awake. His Davidson catheter is out. He has depends on. he had a rapid response this am. LEILA cancelled. No chest pain or shortness of breath. in the room. we discussed the case. Exam Narrative: WDWN in NAD skin no rash or subcu nodules head ncat lungs clear cor irreg no rub or gallop abd BS+ nontender and soft ext no edema or cyanosis. Objective Data Vital Signs Vital Signs: Vital Signs - 24 hr 05/11/21 20:00 05/11/21 20:05 05/11/21 20:15 Temperature 36.4 C Pulse Rate 94 67 68 Respiratory Rate 18 18 Blood Pressure 144/97 H 146/77 H Pulse Oximetry 99 99 05/11/21 22:00 05/12/21 00:00 05/12/21 04:00 Temperature 36.4 C Pulse Rate 58 L 99 101 H Respiratory Rate 18 Blood Pressure 144/70 H Pulse Oximetry 99 05/12/21 05:47 05/12/21 08:00 05/12/21 09:20 Temperature 35.9 C L
--- NOTE | 2021-05-12 16:13 | PM.PNNEP ---
Progress Note: A&P Assessment and Plan (1) Chronic kidney disease, stage 4 (severe): Code(s): N18.4 - Chronic kidney disease, stage 4 (severe) Status: Chronic Assessment and Plan: creatinine has fluctuated in the last year ranging from 2.5 - 3.5mg/dl more recently, it has been running 2.7 - 3.1mg/dl When he is healthy. 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 This may be due to mild stunning from the AFib plus RVR. hopefully creat will impmrove with conversion to NSR (2) Hyperkalemia: Code(s): E87.5 - Hyperkalemia Status: Acute Assessment and Plan: Potassium Has been better. Today's labs are pending. (3) Kidney transplant status: Code(s): Z94.0 - Kidney transplant status Status: Chronic Assessment and Plan: s/p transplantation ~ 13 years ago on tacrolimus and prednisone. follows with [facility] (Dr. Olivia) tacrolimus level is 6.8. theraeputic. (4) Atrial fibrillation with rapid ventricular response: Code(s): I48.91 - Unspecified atrial fibrillation Status: Acute Assessment and Plan: Cardiology recommendations noted rate control strategy already on anticoagulation (5) HTN (hypertension): Qualifiers: Hypertension type: essential hypertension Qualified Code(s): I10 - Essential (primary) hypertension Code(s): I10 - Essential (primary) hypertension Status: Chronic Assessment and Plan: Systolic 100-150. In the target range (6) Diabetes: Qualifiers: Diabetes mellitus type: type 2 Diabetes mellitus care home insulin use: with care home use Diabetes mellitus complication status: with neurologic complications Diabetes mellitus complication detail: with autonomic neuropathy Qualified Code(s): E11.43 - Type 2 diabetes mellitus with diabetic autonomic (poly)neuropathy; Z79.4 - FDC (current) use of insulin Code(s): E11.9 - Type 2 diabetes mellitus without complications Status: Chronic Assessment and Plan: On Accu-Cheks and sliding-scale insulin Will continue to follow. Subjective Date/time seen: 05/12/21 16:13 Interval history: patient is awake. His Davidson catheter is out. He has depends on. he had a rapid response this am. LEILA cancelled. No chest pain or shortness of breath. in the room. we discussed the case. Exam Narrative: WDWN in NAD skin no rash or subcu nodules head ncat lungs clear cor irreg no rub or gallop abd BS+ nontender and soft ext no edema or cyanosis. Objective Data Vital Signs Vital Signs: Vital Signs - 24 hr 05/11/21 20:00 05/11/21 20:05 05/11/21 20:15 Temperature 36.4 C Pulse Rate 94 67 68 Respiratory Rate 18 18 Blood Pressure 144/97 H 146/77 H Pulse Oximetry 99 99 05/11/21 22:00 05/12/21 00:00 05/12/21 04:00 Temperature 36.4 C Pulse Rate 58 L 99 101 H Respiratory Rate 18 Blood Pressure 144/70 H Pulse Oximetry 99 05/12/21 05:47 05/12/21 08:00 05/12/21 09:20 Temperature 35.9 C L Pulse Rate 95 100 130 H Respiratory Rate 18 Blood Pressure 129/80 Pulse Oximetry 97 05/12/21 09:53 05/12/21 12:00 Temperature Pulse Rate 140 H 99 Respiratory Rate Blood Pressure 127/61 Pulse Oximetry Intake/Output Intake/Output: Intake & Output 05/09/21 05/10/21 05/11/21 05/12/21 23:59 23:59 23:59 23:59 Intake Total 1089 024 4953 200 Output Total 50 1 Balance 2101 258 5321 200 Meds/Results Medications: Active Medications Generic Name Dose Route Start Last Admin Trade Name Freq PRN Reason Stop Dose Admin Acetaminophen 650 mg 05/02/21 03:30 Acetaminophen 325 Mg Tablet PO Q6H PRN Mild
--- NOTE | 2021-05-12 16:35 | PCPTNOTE ---
The patient treatment was not able to be completed today due to patient having a rapid response called in A.M.. Will plan to continue treatment per plan of care.
[2021-05-12 16:48] LABS: Glucose Point of Care 166 mg/dl (65-105)
[2021-05-12 17:15] LABS: Glucose Point of Care 174 mg/dl (65-105)
[2021-05-12] MEDS: DOCUSATE SODIUM 100 MG CAPSULE PO (18:29)
[2021-05-12] MEDS: LATANOPROST 0.005% OP SOLN 2.5 ML BTL 1 DROP EACH EYE (21:04)
[2021-05-12] MEDS: TAMSULOSIN HCL 0.4 MG CAPSULE PO (21:04)
[2021-05-12] MEDS: ATORVASTATIN 40 MG TABLET PO (21:04)
[2021-05-12] MEDS: VENLAFAXINE HCL XR 75 MG CAP.ER.24H PO (21:04)
[2021-05-12 21:20] LABS: Glucose Point of Care 251 mg/dl (65-105)
[2021-05-13] VITALS (15 sets, daily range): BP systolic 124–172; BP diastolic 26–83; PULSE 55–101; RESP 16–18; TEMP 35.8–36.1; O2SAT 95–100
[2021-05-13] MEDS: VANCOMYCIN ORAL 125 MG/2.5 ML SYRUP PO ×3 (05:03→17:28)
[2021-05-13 06:10] LABS: Add Urine Microscopic? YES; Appearance Urine Cloudy (Clear); Bacteria Urine 1+ /hpf; Bilirubin Urine Negative (Negative); Blood Urine 1+ (Negative); Budding Yeast Urine Present /hpf; Color Urine Yellow (Yellow); Glucose Urine UA 1+ mg/dL (Negative); Ketones Urine Trace mg/dL (Negative); Leukocyte Esterase Ur 2+ LEU/UL (Negative); Nitrate Urine Negative (Negative); Protein Urine 3+ mg/dL (Negative); RBC Urine >75 /hpf (0-2); Specific Grav Ur 1.017 (1.001-1.035); Squamous Epithelial Cell Urine Few /hpf (Few); Urobilinogen Urine Negative mg/dL (<2.0); WBC Clumps Urine Present /HPF; WBC Urine >75 /hpf
--- NOTE | 2021-05-13 06:30 | PM.IMPN ---
Progress Note: A&P Assessment and Plan (1) Diarrhea: Code(s): R19.7 - Diarrhea, unspecified Status: Acute Assessment and Plan: Multiple episodes of diarrhea Pt reports many episodes of diarrhea, however, nurse stated that it slowing down He has been on antibiotics from this visit, last visit, and even before that WBC is slightly elevated at 13.5 Continue oral vanco IV fluids Trend labs (2) Atrial fibrillation with rapid ventricular response: Code(s): I48.91 - Unspecified atrial fibrillation Status: Acute Assessment and Plan: Amiodarone PO 400mg daily Continuous telemetry: afib RVR with rate in the 130-140s Continue to monitor Cardiology consult thank you for your help VS are stable EKG shows: Afib RVR 132 Metoprolol 25mg PO BID, increased to 50mg PO BID Trend heart rate Heart rate is better controlled in the 90 Cardioversion scheduled (3) Elevated troponin: Code(s): R77.8 - Other specified abnormalities of plasma proteins Status: Acute Assessment and Plan: Likely secondary to chronic kidney disease and atrial fibrillation 1: 0.076, 0.073, 0.089, which are flat Cardiology on the case Continue to monitor Chest xray shows no acute cardiopulmonary findings (4) Status post transcatheter aortic valve replacement (TAVR) using bioprosthesis: Code(s): Z95.3 - Presence of xenogenic heart valve Status: Acute Assessment and Plan: Stable Continue to monitor (5) Parkinson disease: Code(s): G20 - Parkinson's disease Status: Acute Assessment and Plan: Unchanged Continue carbidopa levodopa (6) Orthostatic hypotension: Code(s): I95.1 - Orthostatic hypotension Status: Acute Assessment and Plan: Unchanged Orthostatic pressure seems to be more hypertensive L: 132/94, Sittin/81, Standing 142/108 Educated patient and about slow position changes (7) Chronic kidney disease, stage 4 (severe): Code(s): N18.4 - Chronic kidney disease, stage 4 (severe) Status: Chronic Assessment and Plan: Seems to be getting better current BUN/Cr 73/2.90 Nephrology on the case thank you for your help Avoid nephrotoxic medications Continue to monitor (8) CHF (congestive heart failure), NYHA class I: Code(s): I50.9 - Heart failure, unspecified Status: Chronic Assessment and Plan: Appears euvolemic Daily intake and output Continue to monitor Daily weights (9) COVID: Code(s): U07.1 - COVID-19 Status: Acute Assessment and Plan: Resolved at this time This could be an old finding since the patient tested positive back in November This is a historical finding No infiltrates on chest x-ray Continue to monitor Supportive care (10) Fall: Code(s): W19.XXXA - Unspecified fall, initial encounter Status: Acute Assessment and Plan: Fall precautions. No injuries (11) Abdominal pain: Code(s): R10.9 - Unspecified abdominal pain Status: Acute Assessment and Plan: Complains of pain in the abdomen KUB ordered showed non-obstructive pattern, upon further review it looks as if the patient has a stool ball in the right abdomen Mineral oil enema, senna daily, and suppository all give on 05/06/21 Lactic acid 0.9 Reports a pain level of 7/10 Morphine IV ordered zofran ordered (12) Diabetes type 2, controlled: Code(s): E11.9 - Type 2 diabetes mellitus without complications Status: Acute Assessment and Plan: Glucose 151 SSI Hypoglycemia protocol trend glucose Accu-cheks Adjust therapy as indicated Time Spent With Patient Time with patient: Greater than 35 minutes Subjective Date/time seen: 05/13/21 06:30 Interval history: Date/Time: 05/01/21 23:37 Narrative: This is a 75-year-old male w
[2021-05-13 06:35] LABS: Basophils Absolute Auto 0.1 K/mm3 (0.0-0.1); Basophils Percent Auto 0.4 % (0.2-1.2); Eosinophils Absolute Auto 0.1 K/mm3 (0-0.3); Eosinophils Percent Auto 0.7 % (0-4.4); Hematocrit 40.1 % (42.0-52.0); Hemoglobin 13.1 g/dL (14.0-18.0); Immature Granulocyte Absolute 0.09 K/mm3 (0.00-0.031); Immature Granulocyte Percent A 0.7 % (0-0.5); Lymphocytes Absolute Auto 2.24 K/mm3 (0.9-3.2); Lymphocytes Percent Auto 16.5 % (18.3-44.2); Mean Corpuscular HGB Conc 32.7 g/dl (32-36); Mean Corpuscular Volume 97.8 fl (80-100); Mean Platelet Volume 10.9 fl (7.4-10.4); Monocytes Absolute Auto 0.7 K/mm3 (0.1-0.6); Neutrophils Absolute Auto 10.4 K/mm3 (1.3-6.7); Neutrophils Percent Auto 76.7 % (45.5-73.1); Platelet Count Result 165 k/mm3 (150-375); Red Cell Distribution Width 19.2 % (11.5-14.5); White Blood Count 13.5 K/mm3 (4.5-10.0)
[2021-05-13 06:49] LABS: Albumin Level 2.6 g/dL (3.5-5.1); Alkaline Phosphatase 61 U/L (38-126); Anion Gap 7 mmol/L (8-16); Aspartate Amino Transferase 18 U/L (17-59); Bilirubin,Total 0.6 mg/dL (0.2-1.3); Blood Urea Nitrogen 73 mg/dL (9-20); Calcium 8.5 mg/dL (8.4-10.2); Carbon Dioxide 16 mmol/L (22-30); Chloride 110 mmol/L (98-107); Estimated CRCL calculation 21 ml/min; Estimated Glomerular Filt Rate 21; Glucose 212 mg/dL (65-110); Potassium 4.7 mmol/L (3.4-5.0); Sodium 133 mmol/L (137-145)
[2021-05-13 07:02] LABS: Alanine Aminotransferase < 6 U/L (4-50)
[2021-05-13] MEDS: AMIODARONE HCL 200 MG TABLET 400 MG PO (08:25)
[2021-05-13] MEDS: MIDODRINE HCL 2.5 MG TABLET 5 MG PO ×3 (08:25→17:33)
[2021-05-13] MEDS: METOPROLOL TARTRATE 50 MG TAB PO ×2 (08:26→20:57)
[2021-05-13] MEDS: APIXABAN 2.5 MG TABLET PO ×2 (08:26→17:30)
[2021-05-13] MEDS: MICONAZOLE NITRATE 2% CREAM 30 GM TUBE 1 APPLIC TOPICAL (08:26)
[2021-05-13] MEDS: CARBIDOPA/LEVODOPA 25/250 MG TABLET 1 TABLET PO ×2 (08:28→17:31)
[2021-05-13] MEDS: BRIMONIDINE TARTRATE 0.2% OP SOLN 5 ML BTL 1 DROP EACH EYE ×3 (08:28→17:30)
[2021-05-13 08:33] LABS: Glucose Point of Care 193 mg/dl (65-105)
[2021-05-13] MEDS: LACTATED RINGERS 1,000 ML 75 ML IV CONT ×2 (08:36→17:28)
[2021-05-13] MEDS: CARBIDOPA/LEVODOPA 25/100 MG TABLET 2 TABLET PO ×2 (12:05→20:57)
[2021-05-13 12:13] LABS: Glucose Point of Care 187 mg/dl (65-105)
--- NOTE | 2021-05-13 12:23 | WPDANESEPPF ---
Anes - Initial Pre Proc Eval Procedure: Operation Date: 05/12/21 13:00 Proposed Procedures p Trans Esophageal Echo - Gabriel Cabral MD s Electrical Cardioversion - Gabriel Cabral MD Operation Date: 05/13/21 13:00 Proposed Procedures p Electrical Cardioversion - Gabriel Cabral MD s Trans Esophageal Echo - Gabriel Cabral MD Date/Time: 05/13/21 12:23 Surgeon: Ladonna Ibarra MD Pre Op Diagnosis: atrial fib with RVR Patient Data Age: 75 Gender: M Height: 1.75 m Weight: 77 kg Last Vital Signs Temp 96.5 F L 05/13/21 06:00 Pulse 90 05/13/21 08:26 Resp 16 05/13/21 06:00 BP 172/26 H 05/13/21 06:00 Pulse Ox 98 05/13/21 06:00 Allergies Allergy/AdvReac Type Severity Reaction Status Date / Time trimethobenzamide Allergy Severe Loss of Verified 04/12/21 11:13 Consciousness fish oil Allergy Mild Rash Verified 04/12/21 11:13 levofloxacin Allergy Unknown Hives Verified 04/12/21 11:13 metoclopramide AdvReac Severe Other Verified 04/12/21 11:13 ondansetron AdvReac Severe Other Verified 04/12/21 11:13 diphenhydramine AdvReac Unknown aggi Verified 04/12/21 11:13 NSAIDS (Non-Steroidal AdvReac Unknown renal Verified 04/12/21 11:13 Anti-Inflamma insuff Home Medications Medication Instructions Recorded Confirmed Type atorvastatin 40 mg PO HS 02/10/19 05/02/21 History calcitriol 0.5 mcg PO MOWEFR 02/10/19 05/02/21 History fluticasone propionate 2 spray INTRANASAL DAILY PRN 02/10/19 05/02/21 History melatonin 5 mg PO HS PRN 02/10/19 05/02/21 History apixaban 2.5 mg tablet 2.5 mg PO BID 10/01/19 05/02/21 History tacrolimus 1 mg capsule, 1 mg PO BID cap 12/17/19 05/02/21 History immediate-release venlafaxine 75 mg PO HS 05/17/20 05/02/21 History brimonidine 1 drp EACH EYE TID 06/24/20 05/02/21 History prednisone 5 mg PO DAILY 06/24/20 05/02/21 History ferrous sulfate 325 mg (65 mg 325 mg PO DAILY 07/05/20 05/02/21 History iron) tablet omeprazole 40 mg capsule,delayed 40 mg PO DAILY cap 07/05/20 05/02/21 History release Triphrocaps 1 cap PO DAILY 11/24/20 05/02/21 History pyridoxine (vitamin B6) 100 mg PO DAILY 11/24/20 05/02/21 History aspirin 81 mg PO DAILY 11/28/20 05/02/21 History latanoprost 1 drp EACH EYE HS 11/28/20 05/02/21 History carbidopa-levodopa 1 tablet PO 0900,1700 #60 tablet 03/02/21 05/02/21 Rx docusate sodium [Colace] 100 mg PO BID 03/14/21 05/02/21 History polyethylene glycol 3350 [Miralax] 17 g PO BID PRN 03/14/21 05/02/21 History Artificial Tears(mq-ftgc-kgal) 1 drp EACH EYE TID PRN #0 ml 03/16/21 05/02/21 Rx Denita-Bid 1 tab PO BID #0 tablet 03/16/21 05/02/21 Rx acetaminophen [Mapap 650 mg PO Q6H PRN #0 tablet 03/16/21 05/02/21 Rx (acetaminophen)] allopurinol 150 mg PO DAILY #30 tablet 03/16/21 05/02/21 Rx miconazole nitrate 1 applic TOPICAL Q12HR #1 g 03/16/21 05/02/21 Rx insulin regular human 100 unit/mL 1 sliding scale dose SUBCUT 04/05/21 05/02/21 History (3 mL) subcutaneous pen USEASDIRECTD Semglee U-100 Insulin 20 unit SUBCUT HS 04/11/21 05/02/21 History Lantus U-100 Insulin 11 unit SUBCUT QAM #0 ml 04/25/21 05/02/21 Rx midodrine 5 mg PO TID #90 tablet 04/25/21 05/02/21 Rx tamsulosin 0.4 mg PO HS #30 cap 04/25/21 05/02/21 Rx Lactobacillus acidophilus 1 tablet PO BID 05/02/21 05/02/21 History [Acidophilus] carbidopa-levodopa [Sinemet] 1 tablet PO 1100,2100 05/02/21 05/02/21 History Laboratory Tests 05/12/21 05/12/21 05/12/21 12:07 16:45 17:09 WBC RBC Hgb Hct MCV MCH MCHC RDW Plt Count MPV Immature Gran % (Auto) Neut % (Auto) Lymph % (Auto) [place] % (Auto) Eos % (Auto) Baso % (Auto) Lymph # (Auto) [place] # (Auto) Eos # (Auto) Baso # (Auto) Abs Immat Gran (auto) Absolute Neuts (auto)
--- NOTE | 2021-05-13 12:47 | PC.NURSE ---
1247 pt off floor for procedure.
--- NOTE | 2021-05-13 13:11 | P.PNNP_ITS ---
Progress Note: A&P Assessment and Plan (1) Chronic kidney disease, stage 4 (severe): Code(s): N18.4 - Chronic kidney disease, stage 4 (severe) Status: Chronic Assessment and Plan: * creatinine has fluctuated in the last year ranging from 2.5 - 3.5mg/dl * more recently, it has been running 2.7 - 3.1mg/dl When he is healthy. 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 * This may be due to mild stunning from the AFib plus RVR. * hopefully creat will impmrove with conversion to NSR * Will continue to follow. (2) Hyperkalemia: Code(s): E87.5 - Hyperkalemia Status: Deleted Assessment and Plan: * Normal today (3) Kidney transplant status: Code(s): Z94.0 - Kidney transplant status Status: Chronic Assessment and Plan: * s/p transplantation ~ 13 years ago * on tacrolimus and prednisone. * follows with [facility] (Dr. Olivia) * tacrolimus level is 6.8. theraeputic. (4) Atrial fibrillation with rapid ventricular response: Code(s): I48.91 - Unspecified atrial fibrillation Status: Acute Assessment and Plan: * Cardiology recommendations noted * rate control strategy * already on anticoagulation (5) HTN (hypertension): Qualifiers: Hypertension type: essential hypertension Qualified Code(s): I10 - Essential (primary) hypertension Code(s): I10 - Essential (primary) hypertension Status: Chronic Assessment and Plan: * Systolic 100-150. * In the target range (6) Diabetes: Qualifiers: Diabetes mellitus type: type 2 Diabetes mellitus business support administrator insulin use: with business support administrator use Diabetes mellitus complication status: with neurologic complications Diabetes mellitus complication detail: with autonomic neuropathy Qualified Code(s): E11.43 - Type 2 diabetes mellitus with diabetic autonomic (poly)neuropathy; Z79.4 - detention (current) use of insulin Code(s): E11.9 - Type 2 diabetes mellitus without complications Status: Chronic Assessment and Plan: On Accu-Cheks and sliding-scale insulin Will continue to follow. Subjective Date/time seen: 05/13/21 13:11 Interval history: patient is awake. his is in the room. We discussed the case. LEILA in a few minutes Exam Narrative: WDWN in NAD skin no rash or subcu nodules head ncat lungs clear bilaterally cor irreg no rub or gallop abd BS+ nontender ext no edema Objective Data Vital Signs Vital Signs: Vital Signs - 24 hr 05/12/21 14:00 05/12/21 16:00 05/12/21 20:00 Temperature 36.6 C 36.0 C L Pulse Rate 106 H 87 119 H Respiratory Rate 18 20 Blood Pressure 148/69 H 162/110 H Pulse Oximetry 96 100 05/12/21 20:05 05/12/21 21:04 05/12/21 22:00 Temperature 36.0 C L 36.0 C L Pulse Rate 119 H 102 H 68 Respiratory Rate 20 20 Blood Pressure 161/106 H 164/110 H Pulse Oximetry 100 100 05/13/21 00:00 05/13/21 04:00 05/13/21 06:00 Temperature 35.8 C L Pulse Rate 101 H 95 95 Respiratory Rate 16 Blood Pressure 172/26 H Pulse Oximetry 98
--- NOTE | 2021-05-13 13:11 | PM.PNNEP ---
Progress Note: A&P Assessment and Plan (1) Chronic kidney disease, stage 4 (severe): Code(s): N18.4 - Chronic kidney disease, stage 4 (severe) Status: Chronic Assessment and Plan: creatinine has fluctuated in the last year ranging from 2.5 - 3.5mg/dl more recently, it has been running 2.7 - 3.1mg/dl When he is healthy. 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 This may be due to mild stunning from the AFib plus RVR. hopefully creat will impmrove with conversion to NSR Will continue to follow. (2) Hyperkalemia: Code(s): E87.5 - Hyperkalemia Status: Deleted Assessment and Plan: Normal today (3) Kidney transplant status: Code(s): Z94.0 - Kidney transplant status Status: Chronic Assessment and Plan: s/p transplantation ~ 13 years ago on tacrolimus and prednisone. follows with [facility] (Dr. Olivia) tacrolimus level is 6.8. theraeputic. (4) Atrial fibrillation with rapid ventricular response: Code(s): I48.91 - Unspecified atrial fibrillation Status: Acute Assessment and Plan: Cardiology recommendations noted rate control strategy already on anticoagulation (5) HTN (hypertension): Qualifiers: Hypertension type: essential hypertension Qualified Code(s): I10 - Essential (primary) hypertension Code(s): I10 - Essential (primary) hypertension Status: Chronic Assessment and Plan: Systolic 100-150. In the target range (6) Diabetes: Qualifiers: Diabetes mellitus type: type 2 Diabetes mellitus custodial insulin use: with long term care phlebotomist use Diabetes mellitus complication status: with neurologic complications Diabetes mellitus complication detail: with autonomic neuropathy Qualified Code(s): E11.43 - Type 2 diabetes mellitus with diabetic autonomic (poly)neuropathy; Z79.4 - custodial (current) use of insulin Code(s): E11.9 - Type 2 diabetes mellitus without complications Status: Chronic Assessment and Plan: On Accu-Cheks and sliding-scale insulin Will continue to follow. Subjective Date/time seen: 05/13/21 13:11 Interval history: patient is awake. his is in the room. We discussed the case. LEILA in a few minutes Exam Narrative: WDWN in NAD skin no rash or subcu nodules head ncat lungs clear bilaterally cor irreg no rub or gallop abd BS+ nontender ext no edema Objective Data Vital Signs Vital Signs: Vital Signs - 24 hr 05/12/21 14:00 05/12/21 16:00 05/12/21 20:00 Temperature 36.6 C 36.0 C L Pulse Rate 106 H 87 119 H Respiratory Rate 18 20 Blood Pressure 148/69 H 162/110 H Pulse Oximetry 96 100 05/12/21 20:05 05/12/21 21:04 05/12/21 22:00 Temperature 36.0 C L 36.0 C L Pulse Rate 119 H 102 H 68 Respiratory Rate 20 20 Blood Pressure 161/106 H 164/110 H Pulse Oximetry 100 100 05/13/21 00:00 05/13/21 04:00 05/13/21 06:00 Temperature 35.8 C L Pulse Rate 101 H 95 95 Respiratory Rate 16 Blood Pressure 172/26 H Pulse Oximetry 98 05/13/21 08:00 05/13/21 08:25 05/13/21 08:26 Temperature Pulse Rate 91 90 90 Respiratory Rate Blood Pressure Pulse Oximetry 05/13/21 12:00 Temperature Pulse Rate 81 Respiratory Rate Blood Pressure Pulse Oximetry Intake/Output Intake/Output: Intake & Output 05/10/21 05/11/21 05/12/21 05/13/21 23:59 23:59 23:59 23:59 Intake Total 450 1120 2350 0 Output Total 50 1 240 Balance 400 1119 2350 -240 Meds/Results Medications: Active Medications Generic Name Dose Route Start Last Admin Trade Name Freq PRN Reason Stop Dose Admin Acetaminophen 650 mg 05/02/21 03:30 Acetaminophen 325 Mg Tablet PO Q6H PRN Mild Pain (1-3) Or Fever Hy
--- NOTE | 2021-05-13 13:22 | PCOTNOTE ---
Pt treatment unable to be completed this date due to pending testing/procedure. Will continue plan of care accordingly.
--- NOTE | 2021-05-13 14:02 | SUR.PHASEII ---
REPORT CALLED TO MARLA TAVARES ON FLOOR
--- NOTE | 2021-05-13 14:13 | WPDTECDV ---
LEILA with Cardioversion Date of procedure: 05/13/21 Procedure Type: Transesophageal echocardiogram guided elective electrical cardioversion Diagnosis: Atrial flutter with rapid ventricular response Indications: Atrial flutter with rapid ventricular response Description of Procedure: Brief history present illness: Patient is a pleasant yet complicated 75-year-old gentleman with a past medical history significant CABG, atrial flutter with previous ablation, paroxysmal atrial fibrillation, TAVR, Parkinson's, orthostatic hypertension with persistent atrial flutter with rapid ventricular response despite amiodarone referred for transesophageal echocardiogram-guided elective electrical cardioversion in attempt to restore sinus rhythm. Procedure in detail: After verbal and written informed consent was obtained the patient risks, benefits, and alternatives explained in detail the patient agreed to proceed with the plan of care as outlined above. Patient was evaluated at bedside in the gastroenterology procedure room. On examination, neck was supple with normal range of motion, no restrictions to opening of the oral cavity, jaw angle and posterior hypopharynx was clear. Lungs were clear to auscultation. Patient was placed in appropriate 30 to 45 degree angle in a supine, slight left lateral decubitus position. Patient was monitored throughout the study with telemetry, oxygen saturation, end-tidal CO2 monitoring, blood pressure, heart rate, and respirations. Anterior and posterior defibrillator pads placed in the appropriate positions. The oral bite block placed and sedation administered by Anesthesiology. Through the oral bite block, the transesophageal echocardiogram probe was advanced into the posterior hypopharynx and into the esophagus easily and without complication. Multiple, multiplanar echocardiographic images were obtained in multiple standard re-projections. Pulsed wave, continuous-wave, and color-flow Doppler were utilized in conjunction with this study. At the conclusion of the study, the transesophageal echocardiogram probe was removed easily and without complication. Patient tolerated the procedure well without difficulty. Patient was in atrial fibrillation throughout the study. Sedation: Moderate Sedation/Anesthesia administration: Patient denied previous intolerance or complications with anesthesia/sedation. Please see Anesthesiology documentation for sedation administration and protocol details. Findings: FINDINGS: LEFT VENTRICLE: Normal size with mild LV systolic dysfunction visually estimated ejection fraction of 50%, [id number] concentric left ventricle hypertrophy, prominent trabeculations left ventricular apex. RIGHT VENTRICLE: Normal size mild systolic dysfunction within normal limits. LEFT ATRIUM: Mild enlargement. Spontaneous contrast noted within the left atrium. RIGHT ATRIUM: Mild enlargement. INTERATRIAL SEPTUM: Interatrial septum is anatomically normal with evidence of [id number] shunt with color-flow Doppler. However, no shunt observed with injection of agitated saline with and without Valsalva. MITRAL VALVE: Mitral valve is anatomically normal, mildly thickened with preserved leaflet excursion and 3 very small regurgitant jets overall mild regurgitation. AORTIC VALVE: Bioprosthetic valve in the aortic position noted well seated consistent with known TAVR. Three leaflets were visualized with preserved excursion. At least mild eccentric perivalvular leak appreciated. No significant valvular regurgitation noted. TRICUSPID VALVE: The tricuspid valve is anatomically normal with normal leaflet excursion with trivial regurgitation identified. No mobile elements identified. PULMONIC VALVE: Pulmonic valve was not well visualized, however, trivial regurgitation was identified. LEFT ATRIAL APPENDAGE: Anatomically normal structure with prominent pectinate muscles without thrombus or vegetation iden
--- NOTE | 2021-05-13 14:20 | PC.NURSE ---
1420 pt back in room from procedure.
--- NOTE | 2021-05-13 16:21 | ECG_ITS ---
Measurements Intervals [place] Rate: 51 P: 48 WV: 219 QRS: -74 QRSD: 178 T: 29 QT: 536 QTc: 498 Interpretive Statements SINUS BRADYCARDIA WITH FIRST DEGREE AV BLOCK RIGHT BUNDLE BRANCH BLOCK LEFT ANTERIOR FASCICULAR BLOCK BASELINE ARTIFACT- V4 ABNORMAL ECG Electronically Signed On 05-13-2021 16:50:51 OPEN DEVELOPER OPERATOR by Lokesh Smith D.O.
[2021-05-13 16:37] LABS: Glucose Point of Care 185 mg/dl (65-105)
[2021-05-13] MEDS: ACIDOPHILUS/BULGARICUS CHEWABLE TABLET 1 TABLET PO (17:29)
[2021-05-13] MEDS: DOCUSATE SODIUM 100 MG CAPSULE PO (17:31)
[2021-05-13] MEDS: SODIUM BICARBONATE TAB 650 MG TABLET 1300 MG PO (17:33)
[2021-05-13] MEDS: TAMSULOSIN HCL 0.4 MG CAPSULE PO (20:56)
[2021-05-13] MEDS: ATORVASTATIN 40 MG TABLET PO (20:57)
[2021-05-13] MEDS: VENLAFAXINE HCL XR 75 MG CAP.ER.24H PO (20:57)
[2021-05-13] MEDS: LATANOPROST 0.005% OP SOLN 2.5 ML BTL 1 DROP EACH EYE (20:58)
[2021-05-13 21:43] LABS: Glucose Point of Care 224 mg/dl (65-105)
[2021-05-14] VITALS (9 sets, daily range): BP systolic 87–182; BP diastolic 47–79; PULSE 60–68; RESP 18–20; TEMP 36.3–36.8; O2SAT 98–100
[2021-05-14] MEDS: VANCOMYCIN ORAL 125 MG/2.5 ML SYRUP PO ×4 (00:09→23:07)
[2021-05-14 07:24] LABS: Albumin Level 2.7 g/dL (3.5-5.1); Anion Gap 6 mmol/L (8-16); Blood Urea Nitrogen 72 mg/dL (9-20); Calcium 8.5 mg/dL (8.4-10.2); Carbon Dioxide 19 mmol/L (22-30); Chloride 108 mmol/L (98-107); Estimated CRCL calculation 22 ml/min; Estimated Glomerular Filt Rate 23; Glucose 197 mg/dL (65-110); Phosphorus 3.3 mg/dL (2.5-4.5); Potassium 4.5 mmol/L (3.4-5.0); Sodium 133 mmol/L (137-145)
[2021-05-14] MEDS: APIXABAN 2.5 MG TABLET PO ×2 (08:00→17:02)
[2021-05-14] MEDS: predniSONE 5 MG TABLET PO (08:00)
[2021-05-14] MEDS: MIDODRINE HCL 2.5 MG TABLET 5 MG PO ×3 (08:00→17:04)
[2021-05-14] MEDS: FERROUS SULFATE 324 MG TABLET PO (08:00)
[2021-05-14] MEDS: ASPIRIN 81 MG ENTERIC TABLET PO (08:01)
[2021-05-14] MEDS: allopurinoL 150 MG TABLET PO (08:01)
[2021-05-14] MEDS: AMIODARONE HCL 200 MG TABLET 400 MG PO (08:01)
[2021-05-14] MEDS: PYRIDOXINE HCL 50 MG TABLET 100 MG PO (08:01)
[2021-05-14] MEDS: METOPROLOL TARTRATE 50 MG TAB PO ×2 (08:01→20:27)
[2021-05-14] MEDS: PANTOPRAZOLE 40 MG TABLET PO (08:01)
[2021-05-14] MEDS: CARBIDOPA/LEVODOPA 25/250 MG TABLET 1 TABLET PO ×2 (08:01→17:03)
[2021-05-14] MEDS: VITAMIN B CMPLX/VIT C/FOLIC AC 1 CAPSULE 1 CAP PO (08:02)
[2021-05-14] MEDS: SODIUM BICARBONATE TAB 650 MG TABLET 1300 MG PO ×2 (08:02→17:04)
[2021-05-14] MEDS: ACIDOPHILUS/BULGARICUS CHEWABLE TABLET 1 TABLET PO ×2 (08:02→17:02)
[2021-05-14] MEDS: BRIMONIDINE TARTRATE 0.2% OP SOLN 5 ML BTL 1 DROP EACH EYE ×3 (08:02→17:02)
[2021-05-14] MEDS: SENNA/DOCUSATE SODIUM TABLET 1 TAB PO (08:03)
[2021-05-14] MEDS: DOCUSATE SODIUM 100 MG CAPSULE PO ×2 (08:03→17:03)
[2021-05-14] MEDS: LACTATED RINGERS 1,000 ML 75 ML IV CONT (08:04)
[2021-05-14 08:58] LABS: Glucose Point of Care 183 mg/dl (65-105)
--- NOTE | 2021-05-14 10:11 | P.PNNP_ITS ---
Progress Note: A&P Assessment and Plan (1) Chronic kidney disease, stage 4 (severe): Code(s): N18.4 - Chronic kidney disease, stage 4 (severe) Status: Chronic Assessment and Plan: * creatinine has fluctuated in the last year ranging from 2.5 - 3.5mg/dl * more recently, it has been running 2.7 - 3.1mg/dl When he is healthy. 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 * Will follow this along (2) Hyperkalemia: Code(s): E87.5 - Hyperkalemia Status: Deleted Assessment and Plan: * Normal today (3) Kidney transplant status: Code(s): Z94.0 - Kidney transplant status Status: Chronic Assessment and Plan: * s/p transplantation ~ 13 years ago * on tacrolimus and prednisone. * follows with [facility] (Dr. Olivia) * tacrolimus level is 6.8. theraeputic. (4) Atrial fibrillation with rapid ventricular response: Code(s): I48.91 - Unspecified atrial fibrillation Status: Acute Assessment and Plan: * Cardiology recommendations noted * heart rate is good. Rhythm is regular today. * already on anticoagulation (5) HTN (hypertension): Qualifiers: Hypertension type: essential hypertension Qualified Code(s): I10 - Essential (primary) hypertension Code(s): I10 - Essential (primary) hypertension Status: Chronic Assessment and Plan: * Systolic Is a bit higher at 182 now. * He is currently on metoprolol only. I added amlodipine. 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 Subjective Date/time seen: 05/14/21 10:12 Interval history: patient is awake. He just finished eating breakfast. He ate well. LEILA and cardioversion were done. Exam Narrative: WDWN in NAD skin no rash or subcu nodules head ncat lungs clear bilaterally cor Regular rate and rhythm now. no rub or gallop abd BS+ nontender ext no edema Objective Data Vital Signs Vital Signs: Vital Signs - 24 hr 05/13/21 12:00 05/13/21 13:41 05/13/21 13:51 Temperature Pulse Rate 81 55 L 57 L Respiratory Rate 18 17 Blood Pressure 124/66 132/68 Pulse Oximetry 100 100 05/13/21 14:01 05/13/21 14:56 05/13/21 16:00 Temperature Pulse Rate 60 60 Respiratory Rate 17 Blood Pressure 144/74 H Pulse Oximetry 100 95 05/13/21 20:00 05/13/21 20:18 05/14/21 00:00 Temperature 36.1 C L Pulse Rate 65 62 66 Respiratory Rate 16 Blood Pressure 143/76 H Pulse Oximetry 99 99 05/14/21 04:00 05/14/21 08:01 05/14/21
--- NOTE | 2021-05-14 10:11 | PM.PNNEP ---
Progress Note: A&P Assessment and Plan (1) Chronic kidney disease, stage 4 (severe): Code(s): N18.4 - Chronic kidney disease, stage 4 (severe) Status: Chronic Assessment and Plan: creatinine has fluctuated in the last year ranging from 2.5 - 3.5mg/dl more recently, it has been running 2.7 - 3.1mg/dl When he is healthy. 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 Will follow this along (2) Hyperkalemia: Code(s): E87.5 - Hyperkalemia Status: Deleted Assessment and Plan: Normal today (3) Kidney transplant status: Code(s): Z94.0 - Kidney transplant status Status: Chronic Assessment and Plan: s/p transplantation ~ 13 years ago on tacrolimus and prednisone. follows with [facility] (Dr. Olivia) tacrolimus level is 6.8. theraeputic. (4) Atrial fibrillation with rapid ventricular response: Code(s): I48.91 - Unspecified atrial fibrillation Status: Acute Assessment and Plan: Cardiology recommendations noted heart rate is good. Rhythm is regular today. already on anticoagulation (5) HTN (hypertension): Qualifiers: Hypertension type: essential hypertension Qualified Code(s): I10 - Essential (primary) hypertension Code(s): I10 - Essential (primary) hypertension Status: Chronic Assessment and Plan: Systolic Is a bit higher at 182 now. He is currently on metoprolol only. I added amlodipine. (6) Diabetes: Qualifiers: Diabetes mellitus complication detail: with autonomic neuropathy Diabetes mellitus complication status: with neurologic complications Diabetes mellitus detention insulin use: with detention use Diabetes mellitus type: type 2 Qualified Code(s): E11.43 - Type 2 diabetes mellitus with diabetic autonomic (poly)neuropathy; Z79.4 - correction (current) use of insulin Code(s): E11.9 - Type 2 diabetes mellitus without complications Status: Chronic Assessment and Plan: On Accu-Cheks and sliding-scale insulin Will continue to follow. Subjective Date/time seen: 05/14/21 10:12 Interval history: patient is awake. He just finished eating breakfast. He ate well. LEILA and cardioversion were done. Exam Narrative: WDWN in NAD skin no rash or subcu nodules head ncat lungs clear bilaterally cor Regular rate and rhythm now. no rub or gallop abd BS+ nontender ext no edema Objective Data Vital Signs Vital Signs: Vital Signs - 24 hr 05/13/21 12:00 05/13/21 13:41 05/13/21 13:51 Temperature Pulse Rate 81 55 L 57 L Respiratory Rate 18 17 Blood Pressure 124/66 132/68 Pulse Oximetry 100 100 05/13/21 14:01 05/13/21 14:56 05/13/21 16:00 Temperature Pulse Rate 60 60 Respiratory Rate 17 Blood Pressure 144/74 H Pulse Oximetry 100 95 05/13/21 20:00 05/13/21 20:18 05/14/21 00:00 Temperature 36.1 C L Pulse Rate 65 62 66 Respiratory Rate 16 Blood Pressure 143/76 H Pulse Oximetry 99 99 05/14/21 04:00 05/14/21 08:01 05/14/21 09:00 Temperature 36.8 C Pulse Rate 67 68 63 Respiratory Rate 20 Blood Pressure 182/75 H Pulse Oximetry 99 Intake/Output Intake/Output: Intake & Output 05/11/21 05/12/21 05/13/21 05/14/21 23:59 23:59 23:59 23:59 Intake Total 1120 2350 1640 1740 Output Total 1 240 Balance 1119 2350 1400 1740 Meds/Results Medications: Active Medications Generic Name Dose Route Start Last Admin Trade Name Freq PRN Reason Stop Dose Admin Acetaminophen 650 mg 05/02/21 03:30 Acetaminophen 325 Mg Tablet PO Q6H PRN Mild Pain (1-3) Or Fever Hydrocodone Bitart/Acetaminophen 1 tab 05/11/21 13:50 Hydrocodone/Acetaminophen (*Crx) 5-325 Mg Tablet PO Q4H IN
--- NOTE | 2021-05-14 10:12 | PM.PNCARD ---
Progress Note: A&P Assessment and Plan (1) Atrial fibrillation and flutter: Code(s): I48.91 - Unspecified atrial fibrillation; I48.92 - Unspecified atrial flutter Status: Acute Assessment and Plan: Heart rate less well controlled in atrial flutter with variable AV block and rapid ventricular response Continue Amiodarone 400 mg daily. Explained risks, benefits, alternatives with regards to amiodarone use longer term including but not limited to effects on the eyes, thyroid and lungs and any organ system in general. Ideally we want to avoid amiodarone if possible, however, he has not been well controlled otherwise. We discussed repeat atrial flutter ablation which is not performed at this institution. No clear benefit of transfer at this time to an outside hospital for ablation specifically, however, as an outpatient referral is quite reasonable. She verbalized understanding. All questions answered to her satisfaction. Continue metoprolol 25 mg p.o. b.i.d. Potentially problematic if HR suboptimally controlled given hypotension and fall risk. Continue Eliquis 2.5 mg daily, caution with ambulation to avoid risk for falls and injuries with bleeding. Status post LEILA cardioversion yesterday. Remains in sinus rhythm. Continue amiodarone and Eliquis (2) Orthostatic hypotension: Code(s): I95.1 - Orthostatic hypotension Status: Acute Assessment and Plan: Monitor closely. Stable at present. Orthostatics not obtained recently but asymptomatic current. Continue Midodrine 5mg TID Orthostatics as documented suspect under do not feel are accurate. DC IV fluids as to not to call him iatrogenic volume overload. (3) Status post transcatheter aortic valve replacement (TAVR) using bioprosthesis: Code(s): Z95.3 - Presence of xenogenic heart valve Status: Acute Assessment and Plan: TAVR functioning normally. No acute issues. (4) Parkinson disease: Code(s): G20 - Parkinson's disease Status: Acute Assessment and Plan: Per primary service. [place] to be contributing to h/o orthostasis (5) COVID: Code(s): U07.1 - COVID-19 Status: Acute Assessment and Plan: Per hospitalist. No longer requiring oxygen. Subjective Date/time seen: 05/14/21 10:12 Interval history: 75-year-old with orthostasis, recent COVID recurrent atrial fibrillation/flutter Date of service 05/14/2021: He underwent successful LEILA guided cardioversion yesterday. He remains in sinus rhythm. No chest pain, shortness of breath. Feels okay/better today Review of Systems Constitutional: Constitutional: Reports no additional constitutional complaints and Reports weakness Eyes: Eyes: Reports no additional eye complaints ENT: Reports system reviewed and no additional complaints, except as documented and Denies epistaxis Cardiovascular: Cardiovascular: Reports no additional cardiovascular complaints, Denies chest pain, Denies pedal edema, Denies lightheadedness, Denies palpitations, Reports dyspnea and Reports dyspnea on exertion Respiratory: Respiratory: Denies cough, Reports dyspnea and Reports dyspnea on exertion Gastrointestinal: Gastrointestinal: Reports no additional gastrointestinal complaints, Denies abdominal pain and Reports nausea (Seems to be resolving) Genitourinary: Genitourinary: Denies dysuria Musculoskeletal: Musculoskeletal: Reports no additional musculoskeletal complaints Integumentary/Breasts: Skin/Breast: Reports system reviewed and no additional complaints, except as docu and Denies rash Neurologic: Reports system reviewed and no additional complaints, except as documented, Reports behavioral changes (Confused and delayed responses), Reports confusion and Reports weakness Psychiatric: Psychiatric: Reports no additional psychiatric complaints, Reports behavioral changes (Confused and delayed responses) and Reports confusion Endocrine: Endocrine: Reports no additional end
--- NOTE | 2021-05-14 10:49 | P.PNIM_ITS ---
Progress Note: A&P Assessment and Plan (1) Diarrhea: Code(s): R19.7 - Diarrhea, unspecified Status: Acute Assessment and Plan: * Multiple episodes of diarrhea * Pt reports many episodes of diarrhea, however, nurse stated that it slowing down * He has been on antibiotics from this visit, last visit, and even before that * WBC is slightly elevated at 13.5 * Continue oral vanco * IV fluids * Trend labs (2) Atrial fibrillation with rapid ventricular response: Code(s): I48.91 - Unspecified atrial fibrillation Status: Acute Assessment and Plan: * Amiodarone PO 400mg daily * Continuous telemetry: afib RVR with rate in the 130-140s * Continue to monitor * Cardiology consult thank you for your help * VS are stable * EKG shows: Afib RVR 132 * Metoprolol 25mg PO BID, increased to 50mg PO BID * Trend heart rate * Heart rate is better controlled in the 90 * Status post cardioversion 05/13/2021 (3) Elevated troponin: Code(s): R77.8 - Other specified abnormalities of plasma proteins Status: Acute Assessment and Plan: Likely secondary to chronic kidney disease and atrial fibrillation 1: 0.076, 0.073, 0.089, which are flat Cardiology on the case Continue to monitor Chest xray shows no acute cardiopulmonary findings (4) Status post transcatheter aortic valve replacement (TAVR) using bi oprosthesis: Code(s): Z95.3 - Presence of xenogenic heart valve Status: Acute Assessment and Plan: Stable Continue to monitor (5) Parkinson disease: Code(s): G20 - Parkinson's disease Status: Acute Assessment and Plan: Unchanged Continue carbidopa levodopa (6) Orthostatic hypotension: Code(s): I95.1 - Orthostatic hypotension Status: Acute Assessment and Plan: Unchanged Orthostatic pressure seems to be more hypertensive L: 132/94, Sittin/81, Standing 142/108 Educated patient and about slow position changes (7) Chronic kidney disease, stage 4 (severe): Code(s): N18.4 - Chronic kidney disease, stage 4 (severe) Status: Chronic Assessment and Plan: Seems to be getting better current BUN/Cr 73/2.90 Nephrology on the case thank you for your help Avoid nephrotoxic medications Continue to monitor Status post transplantation approximately 13 years ago intact PANDYA some prednisone follows with [facility] transplant tacrolimus level is 6.8 which is therapeutic (8) CHF (congestive heart failure), NYHA class I: Code(s): I50.9 - Heart failure, unspecified Status: Chronic Assessment and Plan: Appears euvolemic Daily intake and output Continue to monitor Daily weights (9) COVID: Code(s): U07.1 - COVID-19 Status: Resolved Assessment and Plan: Resolved at this time This could be an old finding since the patient tested positive back in November This is a historical finding No infiltrates on chest x-ray Continue to monitor Supportive care (10) Fall: Code(s): W19.XXXA - Unspecified fall, initial encounter Status: Acute Assessment and Plan: Fall precautions. No injuries (11) Abdominal pain: Code(s): R10.9 - Unspecified abdominal pain Status: Acute Assessment and Plan: * Complains of pain in the ab
[2021-05-14 11:54] LABS: Glucose Point of Care 237 mg/dl (65-105)
[2021-05-14] MEDS: CARBIDOPA/LEVODOPA 25/100 MG TABLET 2 TABLET PO ×2 (12:01→20:26)
[2021-05-14] MEDS: INSULIN ASPART (*BKC) 100 UNITS/ML SUB-Q ×2 (12:01→17:04)
[2021-05-14] MEDS: amLODIPine BESYLATE 5 MG TABLET PO (12:01)
[2021-05-14] MEDS: ERTAPENEM SODIUM 0.5 GM in SODIUM CHLORIDE 0.9% IV 50 ML IVPB (13:01)
[2021-05-14 16:56] LABS: Glucose Point of Care 272 mg/dl (65-105)
[2021-05-14] MEDS: ATORVASTATIN 40 MG TABLET PO (20:26)
[2021-05-14] MEDS: TAMSULOSIN HCL 0.4 MG CAPSULE PO (20:26)
[2021-05-14] MEDS: VENLAFAXINE HCL XR 75 MG CAP.ER.24H PO (20:26)
[2021-05-14] MEDS: LATANOPROST 0.005% OP SOLN 2.5 ML BTL 1 DROP EACH EYE (20:27)
[2021-05-15] VITALS (10 sets, daily range): BP systolic 129–173; BP diastolic 66–77; PULSE 60–78; RESP 16–18; TEMP 36.6–36.8; O2SAT 99–100
[2021-05-15] MEDS: VANCOMYCIN ORAL 125 MG/2.5 ML SYRUP PO ×4 (06:33→16:52)
[2021-05-15 06:54] LABS: Basophils Absolute Auto 0.1 K/mm3 (0.0-0.1); Basophils Percent Auto 0.4 % (0.2-1.2); Eosinophils Absolute Auto 0.1 K/mm3 (0-0.3); Eosinophils Percent Auto 0.4 % (0-4.4); Hematocrit 38.4 % (42.0-52.0); Hemoglobin 13.3 g/dL (14.0-18.0); Immature Granulocyte Absolute 0.06 K/mm3 (0.00-0.031); Immature Granulocyte Percent A 0.5 % (0-0.5); Lymphocytes Absolute Auto 2.38 K/mm3 (0.9-3.2); Lymphocytes Percent Auto 19.3 % (18.3-44.2); Mean Corpuscular HGB Conc 34.6 g/dl (32-36); Mean Corpuscular Hemoglobin 31.9 pg (26-34); Mean Corpuscular Volume 92.1 fl (80-100); Mean Platelet Volume 10.7 fl (7.4-10.4); Monocytes Absolute Auto 0.8 K/mm3 (0.1-0.6); Monocytes Percent Auto 6.7 % (2.6-8.5); Neutrophils Absolute Auto 8.9 K/mm3 (1.3-6.7); Neutrophils Percent Auto 72.7 % (45.5-73.1); Platelet Count Result 168 k/mm3 (150-375); Red Blood Count 4.17 M/mm3 (4.6-6.20); Red Cell Distribution Width 18.6 % (11.5-14.5); White Blood Count 12.3 K/mm3 (4.5-10.0)
[2021-05-15 07:09] LABS: Alanine Aminotransferase 9 U/L (4-50); Albumin Level 2.7 g/dL (3.5-5.1); Alkaline Phosphatase 70 U/L (38-126); Anion Gap 8 mmol/L (8-16); Aspartate Amino Transferase 23 U/L (17-59); Bilirubin,Total 0.9 mg/dL (0.2-1.3); Blood Urea Nitrogen 66 mg/dL (9-20); Calcium 8.8 mg/dL (8.4-10.2); Carbon Dioxide 17 mmol/L (22-30); Chloride 111 mmol/L (98-107); Estimated CRCL calculation 21 ml/min; Estimated Glomerular Filt Rate 22; Glucose 270 mg/dL (65-110); Magnesium 1.9 mg/dL (1.6-2.3); Sodium 136 mmol/L (137-145)
[2021-05-15 08:00] LABS: Glucose Point of Care 227 mg/dl (65-105)
--- NOTE | 2021-05-15 08:07 | P.PNNP_ITS ---
Progress Note: A&P Assessment and Plan (1) Chronic kidney disease, stage 4 (severe): Code(s): N18.4 - Chronic kidney disease, stage 4 (severe) Status: Chronic Assessment and Plan: * creatinine has fluctuated in the last year ranging from 2.5 - 3.5mg/dl * more recently, it has been running 2.7 - 3.1mg/dl When he is healthy. 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 * Will follow this along (2) Hyperkalemia: Code(s): E87.5 - Hyperkalemia Status: Deleted Assessment and Plan: * Normal today (3) Kidney transplant status: Code(s): Z94.0 - Kidney transplant status Status: Chronic Assessment and Plan: * s/p transplantation ~ 13 years ago * on tacrolimus and prednisone. * follows with [facility] Transplant (Dr. Olivia) * tacrolimus level is 6.8. theraeputic. (4) Atrial fibrillation with rapid ventricular response: Code(s): I48.91 - Unspecified atrial fibrillation Status: Acute Assessment and Plan: * Cardiology recommendations noted * heart rate is good. Rhythm is regular again today. * already on anticoagulation (5) HTN (hypertension): Qualifiers: Hypertension type: essential hypertension Qualified Code(s): I10 - Essential (primary) hypertension Code(s): I10 - Essential (primary) hypertension Status: Chronic Assessment and Plan: * Blood pressure is running 150-170 now. He is on Amlodipine and metoprolol. The amlodipine was just started yesterday. Will give this another day to see how it works. 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 Subjective Date/time seen: 05/15/21 08:07 Interval history: patient is awake. The patient feels okay. He ate well yesterday he says. He denies shortness of breath Exam Narrative: WDWN in NAD skin no rash or subcu nodules head ncat lungs clear to auscultation cor Regular rate and rhythm now. no rub or gallop abd BS+ nontender ext no edema or cyanosis Objective Data Vital Signs Vital Signs: Vital Signs - 24 hr 05/14/21 09:00 05/14/21 12:00 05/14/21 15:49 Temperature 36.8 C 36.4 C L Pulse Rate 63 61 61 Respiratory Rate 20 20 Blood Pressure 182/75 H 164/73 H Pulse Oximetry 99 98 05/14/21 16:00 05/14/21 20:00 05/15/21 00:00 Temperature 36.3 C L 36.8 C Pulse Rate 60 65 78 Respiratory Rate 18 18 Blood Pressure 178/79 H 159/66 H Pulse Oximetry 100 99 05/15/21 04:00 Temperature 36.8 C Pulse Rate 70 Respiratory Rate 18 Blood Pressure 173/77 H Pulse Oximetry 100
--- NOTE | 2021-05-15 08:07 | PM.PNNEP ---
Progress Note: A&P Assessment and Plan (1) Chronic kidney disease, stage 4 (severe): Code(s): N18.4 - Chronic kidney disease, stage 4 (severe) Status: Chronic Assessment and Plan: creatinine has fluctuated in the last year ranging from 2.5 - 3.5mg/dl more recently, it has been running 2.7 - 3.1mg/dl When he is healthy. 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 Will follow this along (2) Hyperkalemia: Code(s): E87.5 - Hyperkalemia Status: Deleted Assessment and Plan: Normal today (3) Kidney transplant status: Code(s): Z94.0 - Kidney transplant status Status: Chronic Assessment and Plan: s/p transplantation ~ 13 years ago on tacrolimus and prednisone. follows [facility] (Dr. Olivia) tacrolimus level is 6.8. theraeputic. (4) Atrial fibrillation with rapid ventricular response: Code(s): I48.91 - Unspecified atrial fibrillation Status: Acute Assessment and Plan: Cardiology recommendations noted heart rate is good. Rhythm is regular again today. already on anticoagulation (5) HTN (hypertension): Qualifiers: Hypertension type: essential hypertension Qualified Code(s): I10 - Essential (primary) hypertension Code(s): I10 - Essential (primary) hypertension Status: Chronic Assessment and Plan: Blood pressure is running 150-170 now. He is on Amlodipine and metoprolol. The amlodipine was just started yesterday. Will give this another day to see how it works. (6) Diabetes: Qualifiers: Diabetes mellitus type: type 2 Diabetes mellitus custodial insulin use: with custodial use Diabetes mellitus complication status: with neurologic complications Diabetes mellitus complication detail: with autonomic neuropathy Qualified Code(s): E11.43 - Type 2 diabetes mellitus with diabetic autonomic (poly)neuropathy; Z79.4 - computer terminal operator (current) use of insulin Code(s): E11.9 - Type 2 diabetes mellitus without complications Status: Chronic Assessment and Plan: On Accu-Cheks and sliding-scale insulin Will continue to follow. Subjective Date/time seen: 05/15/21 08:07 Interval history: patient is awake. The patient feels okay. He ate well yesterday he says. He denies shortness of breath Exam Narrative: WDWN in NAD skin no rash or subcu nodules head ncat lungs clear to auscultation cor Regular rate and rhythm now. no rub or gallop abd BS+ nontender ext no edema or cyanosis Objective Data Vital Signs Vital Signs: Vital Signs - 24 hr 05/14/21 09:00 05/14/21 12:00 05/14/21 15:49 Temperature 36.8 C 36.4 C L Pulse Rate 63 61 61 Respiratory Rate 20 20 Blood Pressure 182/75 H 164/73 H Pulse Oximetry 99 98 05/14/21 16:00 05/14/21 20:00 05/15/21 00:00 Temperature 36.3 C L 36.8 C Pulse Rate 60 65 78 Respiratory Rate 18 18 Blood Pressure 178/79 H 159/66 H Pulse Oximetry 100 99 05/15/21 04:00 Temperature 36.8 C Pulse Rate 70 Respiratory Rate 18 Blood Pressure 173/77 H Pulse Oximetry 100 Intake/Output Intake/Output: Intake & Output 05/12/21 05/13/21 05/14/21 05/15/21 23:59 23:59 23:59 23:59 Intake Total 2350 1640 2220 Output Total 240 Balance 2350 1400 2220 Meds/Results Medications: Active Medications Generic Name Dose Route Start Last Admin Trade Name Freq PRN Reason Stop Dose Admin Acetaminophen 650 mg 05/02/21 03:30 Acetaminophen 325 Mg Tablet PO Q6H PRN Mild Pain (1-3) Or Fever Hydrocodone Bitart/Acetaminophen 1 tab 05/11/21 13:50 Hydrocodone/Acetaminophen (*Crx) 5-325 Mg Tablet PO Q4H PRN Pain Rated 4-6 Allopurinol 150 mg 05/02/21 08:00 05/14/21 08:01 Allopurinol 150 Mg Tablet PO 150 m
[2021-05-15] MEDS: BRIMONIDINE TARTRATE 0.2% OP SOLN 5 ML BTL 1 DROP EACH EYE ×2 (08:45→16:53)
[2021-05-15] MEDS: MIDODRINE HCL 2.5 MG TABLET 5 MG PO ×3 (08:46→17:00)
[2021-05-15] MEDS: METOPROLOL TARTRATE 50 MG TAB PO ×2 (08:46→20:59)
[2021-05-15] MEDS: PANTOPRAZOLE 40 MG TABLET PO (08:47)
[2021-05-15] MEDS: AMIODARONE HCL 200 MG TABLET 400 MG PO (08:47)
[2021-05-15] MEDS: DOCUSATE SODIUM 100 MG CAPSULE PO ×2 (08:47→16:53)
[2021-05-15] MEDS: allopurinoL 150 MG TABLET PO (08:47)
[2021-05-15] MEDS: ACIDOPHILUS/BULGARICUS CHEWABLE TABLET 1 TABLET PO ×2 (08:47→16:53)
[2021-05-15] MEDS: CARBIDOPA/LEVODOPA 25/250 MG TABLET 1 TABLET PO ×2 (08:47→16:52)
[2021-05-15] MEDS: VITAMIN B CMPLX/VIT C/FOLIC AC 1 CAPSULE 1 CAP PO (08:47)
[2021-05-15] MEDS: SODIUM BICARBONATE TAB 650 MG TABLET 1300 MG PO ×2 (08:47→16:52)
[2021-05-15] MEDS: PYRIDOXINE HCL 50 MG TABLET 100 MG PO (08:47)
[2021-05-15] MEDS: SENNA/DOCUSATE SODIUM TABLET 1 TAB PO (08:48)
[2021-05-15] MEDS: ASPIRIN 81 MG ENTERIC TABLET PO (08:48)
[2021-05-15] MEDS: APIXABAN 2.5 MG TABLET PO ×2 (08:48→16:53)
[2021-05-15] MEDS: amLODIPine BESYLATE 5 MG TABLET PO (08:48)
[2021-05-15] MEDS: FERROUS SULFATE 324 MG TABLET PO (08:48)
[2021-05-15] MEDS: predniSONE 5 MG TABLET PO (08:48)
[2021-05-15] MEDS: INSULIN ASPART (*BKC) 100 UNITS/ML SUB-Q ×3 (08:49→16:52)
--- NOTE | 2021-05-15 09:58 | PM.PNCARD ---
Progress Note: A&P Assessment and Plan (1) Atrial fibrillation and flutter: Code(s): I48.91 - Unspecified atrial fibrillation; I48.92 - Unspecified atrial flutter Status: Acute Assessment and Plan: Heart rate less well controlled in atrial flutter with variable AV block and rapid ventricular response Continue metoprolol 25 mg p.o. b.i.d. Potentially problematic if HR suboptimally controlled given hypotension and fall risk. Continue Eliquis 2.5 mg daily, caution with ambulation to avoid risk for falls and injuries with bleeding. Status post LEILA cardioversion. Remains in sinus rhythm. Continue amiodarone and Eliquis. Will change his amiodarone to 200 mg p.o. b.i.d. (2) Orthostatic hypotension: Code(s): I95.1 - Orthostatic hypotension Status: Acute Assessment and Plan: Monitor closely. Stable at present. Orthostatics not obtained recently but asymptomatic current. Continue Midodrine 5mg TID Orthostatics as documented suspect under do not feel are accurate. (3) Status post transcatheter aortic valve replacement (TAVR) using bioprosthesis: Code(s): Z95.3 - Presence of xenogenic heart valve Status: Acute Assessment and Plan: TAVR functioning normally. No acute issues. (4) Parkinson disease: Code(s): G20 - Parkinson's disease Status: Acute Assessment and Plan: Per primary service. [place] to be contributing to h/o orthostasis (5) COVID: Code(s): U07.1 - COVID-19 Status: Resolved Assessment and Plan: Per hospitalist. No longer requiring oxygen. Subjective Date/time seen: 05/15/21 09:58 Interval history: 75-year-old with orthostasis, recent COVID recurrent atrial fibrillation/flutter Date of service 05/14/2021: He underwent successful LEILA guided cardioversion yesterday. He remains in sinus rhythm. No chest pain, shortness of breath. Feels okay/better today Date of service 05/15/2021: Slow to respond but has no complaints. Feels good. No chest pain, shortness of breath Review of Systems Constitutional: Constitutional: Reports no additional constitutional complaints and Reports weakness Eyes: Eyes: Reports no additional eye complaints ENT: Reports system reviewed and no additional complaints, except as documented and Denies epistaxis Cardiovascular: Cardiovascular: Reports no additional cardiovascular complaints, Denies chest pain, Denies pedal edema, Denies lightheadedness, Denies palpitations, Reports dyspnea and Reports dyspnea on exertion Respiratory: Respiratory: Denies cough, Reports dyspnea and Reports dyspnea on exertion Gastrointestinal: Gastrointestinal: Reports no additional gastrointestinal complaints, Denies abdominal pain and Reports nausea (Seems to be resolving) Genitourinary: Genitourinary: Denies dysuria Musculoskeletal: Musculoskeletal: Reports no additional musculoskeletal complaints Integumentary/Breasts: Skin/Breast: Reports system reviewed and no additional complaints, except as docu and Denies rash Neurologic: Reports system reviewed and no additional complaints, except as documented, Reports behavioral changes (Confused and delayed responses), Reports confusion and Reports weakness Psychiatric: Psychiatric: Reports no additional psychiatric complaints, Reports behavioral changes (Confused and delayed responses) and Reports confusion Endocrine: Endocrine: Reports no additional endocrine complaints and Denies palpitations Hematologic/Lymphatic: Hematologic/Lymphatic: Reports no additional hematologic/lymphatic complaints Allergic/Immunologic: Allergic/Immunologic: Reports no additional allergic/immunologic complaints Exam Narrative: Elderly male alert and oriented slower to respond but appropriate; apparent distress breathing comfortably Const: General: comfortable, no acute distress and confusion Orientation/consciousness: confusion Other: Pleasant tall elderly man no distress HENMT: Genera
--- NOTE | 2021-05-15 10:00 | PM.IMPN ---
Progress Note: A&P Assessment and Plan (1) Diarrhea: Code(s): R19.7 - Diarrhea, unspecified Status: Acute Assessment and Plan: Multiple episodes of diarrhea Pt reports many episodes of diarrhea, however, nurse stated that it slowing down He has been on antibiotics from this visit, last visit, and even before that WBC is slightly elevated at 13.5 Continue oral vanco ; IV fluids which is off now Trend labs (2) Atrial fibrillation with rapid ventricular response: Code(s): I48.91 - Unspecified atrial fibrillation Status: Acute Assessment and Plan: Amiodarone PO 400mg daily Continuous telemetry: afib RVR with rate in the 130-140s Continue to monitor Cardiology consult thank you for your help VS are stable EKG shows: Afib RVR 132 Metoprolol 25mg PO BID, increased to 50mg PO BID Trend heart rate Heart rate is better controlled in the 90 Status post cardioversion 05/13/2021 (3) Elevated troponin: Code(s): R77.8 - Other specified abnormalities of plasma proteins Status: Acute Assessment and Plan: Likely secondary to chronic kidney disease and atrial fibrillation 1: 0.076, 0.073, 0.089, which are flat Cardiology on the case Continue to monitor Chest xray shows no acute cardiopulmonary findings (4) Status post transcatheter aortic valve replacement (TAVR) using bioprosthesis: Code(s): Z95.3 - Presence of xenogenic heart valve Status: Acute Assessment and Plan: Stable Continue to monitor (5) Parkinson disease: Code(s): G20 - Parkinson's disease Status: Acute Assessment and Plan: Unchanged Continue carbidopa levodopa (6) Orthostatic hypotension: Code(s): I95.1 - Orthostatic hypotension Status: Acute Assessment and Plan: Unchanged Orthostatic pressure seems to be more hypertensive L: 132/94, Sittin/81, Standing 142/108 Educated patient and about slow position changes (7) Chronic kidney disease, stage 4 (severe): Code(s): N18.4 - Chronic kidney disease, stage 4 (severe) Status: Chronic Assessment and Plan: Seems to be getting better current BUN/Cr 73/2.90 Nephrology on the case thank you for your help Avoid nephrotoxic medications Continue to monitor Status post transplantation approximately 13 years ago intact PANDYA some prednisone follows with [facility] transplant tacrolimus level is 6.8 which is therapeutic (8) CHF (congestive heart failure), NYHA class I: Code(s): I50.9 - Heart failure, unspecified Status: Chronic Assessment and Plan: Appears euvolemic Daily intake and output Continue to monitor Daily weights (9) COVID: Code(s): U07.1 - COVID-19 Status: Resolved Assessment and Plan: Resolved at this time This could be an old finding since the patient tested positive back in November This is a historical finding No infiltrates on chest x-ray Continue to monitor Supportive care (10) Fall: Code(s): W19.XXXA - Unspecified fall, initial encounter Status: Acute Assessment and Plan: Fall precautions. No injuries (11) Abdominal pain: Code(s): R10.9 - Unspecified abdominal pain Status: Acute Assessment and Plan: Complains of pain in the abdomen KUB ordered showed non-obstructive pattern, upon further review it looks as if the patient has a stool ball in the right abdomen Mineral oil enema, senna daily, and suppository all give on 05/06/21 Lactic acid 0.9 Reports a pain level of 7/10 Morphine IV ordered zofran ordered (12) Diabetes type 2, controlled: Code(s): E11.9 - Type 2 diabetes mellitus without complications Status: Acute Assessment and Plan: Glucose 151 SSI Hypoglycemia protocol trend glucose Accu-cheks Adjust therapy as indicated (13) Urinary tra
--- NOTE | 2021-05-15 11:06 | PC.NURSE ---
Pt's , Lisandra, called wanting an update on pt's status. She also wanted me to go and explain to pt that she is hurting too badly to sit with him today. She stated that he becomes very angry and agitated when she is not there so I should be careful and continue trying to make him understand that cannot be there today nor can their daughter who is having diarrhea today. I answered her questions and agreed to share this information if pt asks where she is at or why she is not there. I went to check on pt shortly after the phone conversation with Lisandra and pt was sound asleep.
[2021-05-15] MEDS: CARBIDOPA/LEVODOPA 25/100 MG TABLET 2 TABLET PO ×2 (11:47→21:00)
[2021-05-15 11:53] LABS: Glucose Point of Care 240 mg/dl (65-105)
[2021-05-15 16:42] LABS: Glucose Point of Care 244 mg/dl (65-105)
[2021-05-15] MEDS: ERTAPENEM SODIUM 0.5 GM in SODIUM CHLORIDE 0.9% IV 50 ML IVPB (16:50)
[2021-05-15] MEDS: TAMSULOSIN HCL 0.4 MG CAPSULE PO (16:53)
[2021-05-15] MEDS: ATORVASTATIN 40 MG TABLET PO (20:59)
[2021-05-15] MEDS: VENLAFAXINE HCL XR 75 MG CAP.ER.24H PO (20:59)
[2021-05-15] MEDS: LATANOPROST 0.005% OP SOLN 2.5 ML BTL 1 DROP EACH EYE (21:01)
[2021-05-15 21:08] LABS: Glucose Point of Care 291 mg/dl (65-105)
[2021-05-16] VITALS (9 sets, daily range): BP systolic 99–175; BP diastolic 52–79; PULSE 60–85; RESP 18–19; TEMP 35.6–36.6; O2SAT 96–99
[2021-05-16] MEDS: VANCOMYCIN ORAL 125 MG/2.5 ML SYRUP PO ×4 (05:02→23:03)
[2021-05-16 07:01] LABS: Basophils Percent Auto 0.4 % (0.2-1.2); Eosinophils Absolute Auto 0.1 K/mm3 (0-0.3); Eosinophils Percent Auto 1.4 % (0-4.4); Hematocrit 37.4 % (42.0-52.0); Hemoglobin 12.1 g/dL (14.0-18.0); Immature Granulocyte Absolute 0.04 K/mm3 (0.00-0.031); Immature Granulocyte Percent A 0.4 % (0-0.5); Lymphocytes Absolute Auto 2.09 K/mm3 (0.9-3.2); Lymphocytes Percent Auto 20.5 % (18.3-44.2); Mean Corpuscular HGB Conc 32.4 g/dl (32-36); Mean Corpuscular Volume 95.9 fl (80-100); Mean Platelet Volume 11.5 fl (7.4-10.4); Monocytes Absolute Auto 0.6 K/mm3 (0.1-0.6); Monocytes Percent Auto 6.2 % (2.6-8.5); Neutrophils Absolute Auto 7.3 K/mm3 (1.3-6.7); Neutrophils Percent Auto 71.1 % (45.5-73.1); Platelet Count Result 163 k/mm3 (150-375); Red Cell Distribution Width 19.3 % (11.5-14.5); White Blood Count 10.2 K/mm3 (4.5-10.0)
[2021-05-16 07:13] LABS: Albumin Level 2.4 g/dL (3.5-5.1); Alkaline Phosphatase 55 U/L (38-126); Anion Gap 4 mmol/L (8-16); Aspartate Amino Transferase 19 U/L (17-59); Bilirubin,Total 0.6 mg/dL (0.2-1.3); Blood Urea Nitrogen 60 mg/dL (9-20); Carbon Dioxide 20 mmol/L (22-30); Chloride 111 mmol/L (98-107); Estimated CRCL calculation 24 ml/min; Estimated Glomerular Filt Rate 25; Glucose 228 mg/dL (65-110); Potassium 4.2 mmol/L (3.4-5.0); Sodium 135 mmol/L (137-145)
[2021-05-16 07:43] LABS: Alanine Aminotransferase < 4 U/L (4-50)
[2021-05-16 08:31] LABS: Glucose Point of Care 223 mg/dl (65-105)
[2021-05-16] MEDS: allopurinoL 150 MG TABLET PO (10:14)
[2021-05-16] MEDS: FERROUS SULFATE 324 MG TABLET PO (10:15)
[2021-05-16] MEDS: predniSONE 5 MG TABLET PO (10:17)
[2021-05-16] MEDS: METOPROLOL TARTRATE 50 MG TAB PO ×2 (10:18→20:19)
[2021-05-16] MEDS: PANTOPRAZOLE 40 MG TABLET PO (10:19)
[2021-05-16] MEDS: PYRIDOXINE HCL 50 MG TABLET 100 MG PO (10:19)
[2021-05-16] MEDS: APIXABAN 2.5 MG TABLET PO ×2 (10:19→18:28)
[2021-05-16] MEDS: MIDODRINE HCL 2.5 MG TABLET 5 MG PO ×3 (10:20→18:22)
[2021-05-16] MEDS: CARBIDOPA/LEVODOPA 25/100 MG TABLET 2 TABLET PO ×2 (10:21→20:19)
[2021-05-16] MEDS: DOCUSATE SODIUM 100 MG CAPSULE PO ×2 (10:21→18:21)
[2021-05-16] MEDS: amLODIPine BESYLATE 5 MG TABLET PO (10:22)
[2021-05-16] MEDS: ASPIRIN 81 MG ENTERIC TABLET PO (10:22)
[2021-05-16] MEDS: AMIODARONE HCL 200 MG TABLET PO ×2 (10:23→18:23)
[2021-05-16] MEDS: BISACODYL 10 MG SUPPOSITORY RECTAL (10:24)
[2021-05-16] MEDS: BRIMONIDINE TARTRATE 0.2% OP SOLN 5 ML BTL 1 DROP EACH EYE ×3 (10:25→18:26)
[2021-05-16] MEDS: ACIDOPHILUS/BULGARICUS CHEWABLE TABLET 1 TABLET PO ×2 (10:25→18:23)
[2021-05-16] MEDS: calcitrioL 0.25 MCG CAPSULE 0.5 MCG PO (10:26)
[2021-05-16] MEDS: VITAMIN B CMPLX/VIT C/FOLIC AC 1 CAPSULE 1 CAP PO (10:27)
[2021-05-16] MEDS: SENNA/DOCUSATE SODIUM TABLET 1 TAB PO (10:27)
[2021-05-16] MEDS: SODIUM BICARBONATE TAB 650 MG TABLET 1300 MG PO ×2 (10:28→18:21)
[2021-05-16] MEDS: CARBIDOPA/LEVODOPA 25/250 MG TABLET 1 TABLET PO ×2 (10:28→18:23)
--- NOTE | 2021-05-16 10:30 | PM.IMPN ---
Progress Note: A&P Assessment and Plan (1) Diarrhea: Code(s): R19.7 - Diarrhea, unspecified Status: Acute Assessment and Plan: Multiple episodes of diarrhea Pt reports many episodes of diarrhea, however, nurse stated that it slowing down He has been on antibiotics from this visit, last visit, and even before that WBC is slightly elevated at 10.2 Continue oral vanco IV fluids which is off now Trend labs (2) Atrial fibrillation with rapid ventricular response: Code(s): I48.91 - Unspecified atrial fibrillation Status: Acute Assessment and Plan: Has converted to SR LEILA cardioversion performed Amiodarone PO 400mg daily Continuous telemetry: afib RVR with rate in the 130-140s Continue to monitor Cardiology consult thank you for your help VS are stable EKG shows: Afib RVR 132 Metoprolol 25mg PO BID, increased to 50mg PO BID Trend heart rate Heart rate is better controlled in the 90 Status post cardioversion 05/13/2021 (3) Elevated troponin: Code(s): R77.8 - Other specified abnormalities of plasma proteins Status: Acute Assessment and Plan: Likely secondary to chronic kidney disease and atrial fibrillation 1: 0.076, 0.073, 0.089, which are flat Cardiology on the case Continue to monitor Chest xray shows no acute cardiopulmonary findings (4) Status post transcatheter aortic valve replacement (TAVR) using bioprosthesis: Code(s): Z95.3 - Presence of xenogenic heart valve Status: Acute Assessment and Plan: Stable Continue to monitor (5) Parkinson disease: Code(s): G20 - Parkinson's disease Status: Acute Assessment and Plan: Unchanged Continue carbidopa levodopa (6) Orthostatic hypotension: Code(s): I95.1 - Orthostatic hypotension Status: Acute Assessment and Plan: Unchanged Orthostatic pressure seems to be more hypertensive L: 132/94, Sittin/81, Standing 142/108 Educated patient and about slow position changes (7) Chronic kidney disease, stage 4 (severe): Code(s): N18.4 - Chronic kidney disease, stage 4 (severe) Status: Chronic Assessment and Plan: Seems to be getting better current BUN/Cr 60/2.50 Nephrology on the case thank you for your help Avoid nephrotoxic medications Continue to monitor Status post transplantation approximately 13 years ago intact PANDYA some prednisone follows with [facility] transplant tacrolimus level is 6.8 which is therapeutic (8) CHF (congestive heart failure), NYHA class I: Code(s): I50.9 - Heart failure, unspecified Status: Chronic Assessment and Plan: Appears euvolemic Daily intake and output Continue to monitor Daily weights (9) COVID: Code(s): U07.1 - COVID-19 Status: Resolved Assessment and Plan: Resolved at this time This could be an old finding since the patient tested positive back in November This is a historical finding No infiltrates on chest x-ray Continue to monitor Supportive care (10) Fall: Code(s): W19.XXXA - Unspecified fall, initial encounter Status: Acute Assessment and Plan: Fall precautions. No injuries (11) Diabetes type 2, controlled: Code(s): E11.9 - Type 2 diabetes mellitus without complications Status: Acute Assessment and Plan: Glucose 228 SSI Hypoglycemia protocol trend glucose Accu-cheks Adjust therapy as indicated (12) Urinary tract infection: Qualifiers: Hematuria presence: with hematuria Urinary tract infection type: site unspecified Qualified Code(s): N39.0 - Urinary tract infection, site not specified; R31.9 - Hematuria, unspecified Code(s): N39.0 - Urinary tract infection, site not specified Status: Acute Assessment and Plan: Suspect urinary retention check bladder scan Urine culture
[2021-05-16] MEDS: TAMSULOSIN HCL 0.4 MG CAPSULE PO ×2 (10:31→18:22)
--- NOTE | 2021-05-16 12:22 | PCNFU ---
Nutrition Follow-Up Complete: Unintentional wt loss related to atrial fib w/RVR and COVID 19 as evidenced by reported decreased appetite and weight loss of 5lbs Goal: Pt to meet 75% of estimated nutritional needs Pt. is progressing towards goal. No new goal at this time. Pt current nutrition is a heart healthy and diabetic consistent carbohydrate diet. Last recorded weight is 82.1 kg. Recommend re-weighing pt. prior to discharge. Bowel Motility: + BM 05/15/2021 Labs Reviewed: Hgb 12.1, Hct 37.4, Alb 2,4m Na 135, GFR 25, BUN 60, Cr 2.5, Glu 228 Meds Noted: Pacerone, Eliquis, Zyloprim, Lipitor, Bisacodyl, Sinemet, Ferrous Sulfate, Colace Capsule, Glucose, Glucagon, NovoLog, Lopressor, Mirapex, Protonix, B-6, Prednisone, Sodium Bicarbonate Tablet, Flomax, Vancomycin Hcl, Effexor Xr Skin: No skin break down at this time. WNL. Additional Notes: Patient has a good appetite consuming between 75-100% of meals ordered. Blood sugars are running high. No additional nutritional concerns at this time. Will monitor labs, medication, wt, and reported intake every 5 days
[2021-05-16 12:38] LABS: Glucose Point of Care 340 mg/dl (65-105)
--- NOTE | 2021-05-16 15:39 | P.PNNP_ITS ---
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 * follows [facility] (Dr. Olivia) * last tacrolimus level wass 6.8 (therapeutic) (4) Atrial fibrillation with rapid ventricular response: Code(s): I48.91 - Unspecified atrial fibrillation Status: Acute Assessment and Plan: * Cardiology recommendations noted * rate controlled * already on anticoagulation (5) UTI (urinary tract infection): Code(s): N39.0 - Urinary tract infection, site not specified Status: Acute Assessment and Plan: * urine culture with Enterococcus * on antibiotics (6) HTN (hypertension): Qualifiers: Hypertension type: essential hypertension Qualified Code(s): I10 - Essential (primary) hypertension Code(s): I10 - Essential (primary) hypertension Status: Chronic Assessment and Plan: * BP a little high today * continue amlodipine and metoprolol * follow trend of hemodynamics (7) Diabetes: Qualifiers: Diabetes mellitus type: type 2 Diabetes mellitus terminal makeup operator insulin use: with terminal makeup operator use Diabetes mellitus complication status: with neurologic complications Diabetes mellitus complication detail: with autonomic neuropathy Qualified Code(s): E11.43 - Type 2 diabetes mellitus with diabetic autonomic (poly)neuropathy; Z79.4 - terminologist (current) use of insulin Code(s): E11.9 - Type 2 diabetes mellitus without complications Status: Chronic Assessment and Plan: * follow Accu-Cheks * on sliding-scale insulin Will continue to follow. Subjective Date/time seen: 05/16/21 15:39 Chart reviewed since last seen - assuming care from Dr. Mcelroy; no acute complaints voiced at the time of my visit; he stated that he feels better since admission; no apparent distress expressed; no issues/events overnight or earlier this morning; renal function appears relatively stable. Exam Narrative: General: chronically ill appearing male in NAD Heart: normal S1 and S2; no rub Lungs: clear to auscultation Abdomen: soft, nontender, nondistended, positive bowel sounds Extremities: no cyanosis or clubbing; no edema Skin: warm and dry Objective Data Vital Signs Vital Signs: Vital Signs Temp Pulse Resp BP Pulse Ox 05/16/21 10:23 85 05/16/21 10:18 85 05/16/21 08:00 60 05/16/21 04:00 68 05/16/21 00:00 36.6 C 64 18 175/79 H 98 05/15/21 20:59 60 05/15/21 20:00 60 16 100 Intake/Output Intake/Output:
--- NOTE | 2021-05-16 15:39 | PM.PNNEP ---
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 follows with [facility] (Dr. Olivia) last tacrolimus level wass 6.8 (therapeutic) (4) Atrial fibrillation with rapid ventricular response: Code(s): I48.91 - Unspecified atrial fibrillation Status: Acute Assessment and Plan: Cardiology recommendations noted rate controlled already on anticoagulation (5) UTI (urinary tract infection): Code(s): N39.0 - Urinary tract infection, site not specified Status: Acute Assessment and Plan: urine culture with Enterococcus on antibiotics (6) HTN (hypertension): Qualifiers: Hypertension type: essential hypertension Qualified Code(s): I10 - Essential (primary) hypertension Code(s): I10 - Essential (primary) hypertension Status: Chronic Assessment and Plan: BP a little high today continue amlodipine and metoprolol follow trend of hemodynamics (7) Diabetes: Qualifiers: Diabetes mellitus type: type 2 Diabetes mellitus termite treater helper insulin use: with custodial use Diabetes mellitus complication status: with neurologic complications Diabetes mellitus complication detail: with autonomic neuropathy Qualified Code(s): E11.43 - Type 2 diabetes mellitus with diabetic autonomic (poly)neuropathy; Z79.4 - alf (current) use of insulin Code(s): E11.9 - Type 2 diabetes mellitus without complications Status: Chronic Assessment and Plan: follow Accu-Cheks on sliding-scale insulin Will continue to follow. Subjective Date/time seen: 05/16/21 15:39 Chart reviewed since last seen - assuming care from Dr. Mcelroy; no acute complaints voiced at the time of my visit; he stated that he feels better since admission; no apparent distress expressed; no issues/events overnight or earlier this morning; renal function appears relatively stable. Exam Narrative: General: chronically ill appearing male in NAD Heart: normal S1 and S2; no rub Lungs: clear to auscultation Abdomen: soft, nontender, nondistended, positive bowel sounds Extremities: no cyanosis or clubbing; no edema Skin: warm and dry Objective Data Vital Signs Vital Signs: Vital Signs Temp Pulse Resp BP Pulse Ox 05/16/21 10:23 85 05/16/21 10:18 85 05/16/21 08:00 60 05/16/21 04:00 68 05/16/21 00:00 36.6 C 64 18 175/79 H 98 05/15/21 20:59 60 05/15/21 20:00 60 16 100 Intake/Output Intake/Output: Intake & Output 05/13/21 05/14/21 05/15/21 05/16/21 23:59 23:59 23:59 23:59 Intake Total 1640 2220 1410 1000 Output Total 240 Balance 1400 2220 1410 1000 Meds/Results Medications: Active Medications Generic Name Dose Route Start Last Admin Trade Name Freq PRN Reason Stop Dose Admin Acetaminophen 650 mg 05/02/21 03:30 Acetaminophen 325 Mg Tablet PO Q6H PRN Mild Pain (1-3) Or Fever Hydrocodone Bitart/Acetaminophen 1 tab 05/11/21 13:50 Hydrocodone/Acetaminophen (*Crx) 5-325 Mg Tablet PO Q4H PRN Pain Rated 4-6 Allopurinol 150 mg 05/02/21 08
[2021-05-16] MEDS: ATORVASTATIN 40 MG TABLET PO (18:22)
[2021-05-16] MEDS: LATANOPROST 0.005% OP SOLN 2.5 ML BTL 1 DROP EACH EYE (18:26)
[2021-05-16] MEDS: VENLAFAXINE HCL XR 75 MG CAP.ER.24H PO (20:19)
[2021-05-16 20:23] LABS: Glucose Point of Care 338 mg/dl (65-105)
[2021-05-17] VITALS (11 sets, daily range): BP systolic 105–168; BP diastolic 52–74; PULSE 63–71; RESP 16–18; TEMP 35.6–36.6; O2SAT 99–100
[2021-05-17] MEDS: VANCOMYCIN ORAL 125 MG/2.5 ML SYRUP PO ×4 (05:10→23:42)
[2021-05-17 06:47] LABS: Basophils Absolute Auto 0.1 K/mm3 (0.0-0.1); Basophils Percent Auto 0.7 % (0.2-1.2); Eosinophils Absolute Auto 0.2 K/mm3 (0-0.3); Hematocrit 38.5 % (42.0-52.0); Hemoglobin 12.9 g/dL (14.0-18.0); Immature Granulocyte Absolute 0.04 K/mm3 (0.00-0.031); Immature Granulocyte Percent A 0.4 % (0-0.5); Lymphocytes Absolute Auto 2.17 K/mm3 (0.9-3.2); Lymphocytes Percent Auto 19.9 % (18.3-44.2); Mean Corpuscular HGB Conc 33.5 g/dl (32-36); Mean Corpuscular Hemoglobin 31.6 pg (26-34); Mean Corpuscular Volume 94.4 fl (80-100); Mean Platelet Volume 10.8 fl (7.4-10.4); Monocytes Absolute Auto 0.8 K/mm3 (0.1-0.6); Monocytes Percent Auto 7.2 % (2.6-8.5); Neutrophils Absolute Auto 7.6 K/mm3 (1.3-6.7); Neutrophils Percent Auto 69.8 % (45.5-73.1); Platelet Count Result 146 k/mm3 (150-375); Red Blood Count 4.08 M/mm3 (4.6-6.20); Red Cell Distribution Width 18.6 % (11.5-14.5); White Blood Count 10.9 K/mm3 (4.5-10.0)
[2021-05-17 07:01] LABS: Albumin Level 2.5 g/dL (3.5-5.1); Alkaline Phosphatase 60 U/L (38-126); Anion Gap 3 mmol/L (8-16); Aspartate Amino Transferase 19 U/L (17-59); Bilirubin,Total 0.6 mg/dL (0.2-1.3); Blood Urea Nitrogen 57 mg/dL (9-20); Calcium 8.4 mg/dL (8.4-10.2); Carbon Dioxide 20 mmol/L (22-30); Chloride 110 mmol/L (98-107); Estimated CRCL calculation 25 ml/min; Estimated Glomerular Filt Rate 27; Glucose 271 mg/dL (65-110); Magnesium 2.1 mg/dL (1.6-2.3); Potassium 4.5 mmol/L (3.4-5.0); Sodium 133 mmol/L (137-145)
[2021-05-17 07:12] LABS: Alanine Aminotransferase < 4 U/L (4-50)
[2021-05-17] MEDS: MIDODRINE HCL 2.5 MG TABLET 5 MG PO ×3 (08:00→17:26)
[2021-05-17] MEDS: PANTOPRAZOLE 40 MG TABLET PO (08:00)
[2021-05-17] MEDS: APIXABAN 2.5 MG TABLET PO ×2 (08:01→17:26)
[2021-05-17] MEDS: PYRIDOXINE HCL 50 MG TABLET 100 MG PO (08:01)
[2021-05-17] MEDS: DOCUSATE SODIUM 100 MG CAPSULE PO ×2 (08:01→17:26)
[2021-05-17] MEDS: ACIDOPHILUS/BULGARICUS CHEWABLE TABLET 1 TABLET PO ×2 (08:01→17:27)
[2021-05-17] MEDS: ASPIRIN 81 MG ENTERIC TABLET PO (08:01)
[2021-05-17] MEDS: CARBIDOPA/LEVODOPA 25/250 MG TABLET 1 TABLET PO ×2 (08:01→17:26)
[2021-05-17] MEDS: SODIUM BICARBONATE TAB 650 MG TABLET 1300 MG PO ×2 (08:01→17:26)
[2021-05-17] MEDS: AMIODARONE HCL 200 MG TABLET PO (08:02)
[2021-05-17] MEDS: SENNA/DOCUSATE SODIUM TABLET 1 TAB PO (08:02)
[2021-05-17] MEDS: allopurinoL 150 MG TABLET PO (08:03)
[2021-05-17] MEDS: predniSONE 5 MG TABLET PO (08:03)
[2021-05-17] MEDS: VITAMIN B CMPLX/VIT C/FOLIC AC 1 CAPSULE 1 CAP PO (08:03)
[2021-05-17] MEDS: FERROUS SULFATE 324 MG TABLET PO (08:03)
[2021-05-17] MEDS: METOPROLOL TARTRATE 50 MG TAB PO ×2 (08:03→21:14)
[2021-05-17] MEDS: amLODIPine BESYLATE 5 MG TABLET PO (08:03)
[2021-05-17] MEDS: BRIMONIDINE TARTRATE 0.2% OP SOLN 5 ML BTL 1 DROP EACH EYE ×3 (08:04→17:26)
[2021-05-17] MEDS: INSULIN ASPART (*BKC) 100 UNITS/ML SUB-Q ×3 (08:05→17:28)
[2021-05-17] MEDS: TAMSULOSIN HCL 0.4 MG CAPSULE PO ×2 (08:06→17:26)
[2021-05-17 08:21] LABS: Glucose Point of Care 241 mg/dl (65-105)
--- NOTE | 2021-05-17 09:30 | P.PNIM_ITS ---
Progress Note: A&P Assessment and Plan (1) Diarrhea: Code(s): R19.7 - Diarrhea, unspecified Status: Acute Assessment and Plan: * Seems resolved at this time * Multiple episodes of diarrhea * Pt reports many episodes of diarrhea, however, nurse stated that it slowing down * He has been on antibiotics from this visit, last visit, and even before that * WBC is slightly elevated at 10.2 * Continue oral vanco * IV fluids which is off now * Trend labs (2) Atrial fibrillation with rapid ventricular response: Code(s): I48.91 - Unspecified atrial fibrillation Status: Acute Assessment and Plan: * Has converted to SR * LEILA cardioversion performed * Amiodarone PO 400mg daily * Continuous telemetry: afib RVR with rate in the 130-140s * Continue to monitor * Cardiology consult thank you for your help * VS are stable * EKG shows: Afib RVR 132 * Metoprolol 25mg PO BID, increased to 50mg PO BID * Trend heart rate * Heart rate is better controlled in the 90 * Status post cardioversion 05/13/2021 (3) Elevated troponin: Code(s): R77.8 - Other specified abnormalities of plasma proteins Status: Acute Assessment and Plan: Likely secondary to chronic kidney disease and atrial fibrillation 1: 0.076, 0.073, 0.089, which are flat Cardiology on the case Continue to monitor Chest xray shows no acute cardiopulmonary findings (4) Status post transcatheter aortic valve replacement (TAVR) using bioprosthesis: Code(s): Z95.3 - Presence of xenogenic heart valve Status: Acute Assessment and Plan: Stable Continue to monitor (5) Parkinson disease: Code(s): G20 - Parkinson's disease Status: Acute Assessment and Plan: Unchanged Continue carbidopa levodopa (6) Orthostatic hypotension: Code(s): I95.1 - Orthostatic hypotension Status: Acute Assessment and Plan: Unchanged Orthostatic pressure seems to be more hypertensive L: 132/94, Sittin/81, Standing 142/108 Educated patient and about slow position changes (7) Chronic kidney disease, stage 4 (severe): Code(s): N18.4 - Chronic kidney disease, stage 4 (severe) Status: Chronic Assessment and Plan: Seems to be getting better current BUN/Cr 60/2.50 Nephrology on the case thank you for your help Avoid nephrotoxic medications Continue to monitor Status post transplantation approximately 13 years ago intact PANDYA some prednisone follows with [facility] transplant tacrolimus level is 6.8 which is therapeutic (8) CHF (congestive heart failure), NYHA class I: Code(s): I50.9 - Heart failure, unspecified Status: Chronic Assessment and Plan: Appears euvolemic Daily intake and output Continue to monitor Daily weights (9) COVID: Code(s): U07.1 - COVID-19 Status: Resolved Assessment and Plan: Resolved at this time This could be an old finding since the patient tested positive back in November This is a historical finding No infiltrates on chest x-ray Continue to monitor Supportive care (10) Fall: Code(s): W19.XXXA - Unspecified fall, initial encounter Status: Acute Assessment and Plan: Fall precautions. No injuries (11) Diabetes type 2, controlled: Code(s): E
[2021-05-17] MEDS: CARBIDOPA/LEVODOPA 25/100 MG TABLET 2 TABLET PO ×2 (10:03→21:15)
[2021-05-17 10:11] LABS: Glucose Point of Care 283 mg/dl (65-105)
--- NOTE | 2021-05-17 11:15 | PM.DS ---
DS: Admitting Diagnosis Discharge Date 05/17/21929 Admitting Diagnosis Afib RVR DS: Summary Time Spent with Patient Time attestation: Total time spent providing and/or coordinating discharge services: DS: Data Data Completed and Pending Labs on day of discharge: Labs from last 24 hours 05/17/21 05/17/21 05/17/21 07:57 06:28 06:28 WBC 10.9 H RBC 4.08 L Hgb 12.9 L Hct 38.5 L MCV 94.4 MCH 31.6 MCHC 33.5 RDW 18.6 H Plt Count 146 L MPV 10.8 H Immature Gran % (Auto) 0.4 Neut % (Auto) 69.8 Lymph % (Auto) 19.9 [place] % (Auto) 7.2 Eos % (Auto) 2.0 Baso % (Auto) 0.7 Lymph # (Auto) 2.17 [place] # (Auto) 0.8 H Eos # (Auto) 0.2 Baso # (Auto) 0.1 Abs Immat Gran (auto) 0.04 H Absolute Neuts (auto) 7.6 H Absolute Nucleated RBC 0.0 Nucleated RBC % 0.0 Sodium 133 L Potassium 4.5 Chloride 110 H Carbon Dioxide 20 L Anion Gap 3 L BUN 57 H Creatinine 2.40 H Estim Creat Clear Calc 25 Estimated GFR 27 L Glucose 271 H POC Capillary Glucose 241 H Calcium 8.4 Magnesium 2.1 Total Bilirubin 0.6 AST 19 ALT < 4 L Alkaline Phosphatase 60 Total Protein 5.0 L Albumin 2.5 L 05/16/21 05/16/21 05/16/21 20:17 16:53 12:00 WBC RBC Hgb Hct MCV MCH MCHC RDW Plt Count MPV Immature Gran % (Auto) Neut % (Auto) Lymph % (Auto) [place] % (Auto) Eos % (Auto) Baso % (Auto) Lymph # (Auto) [place] # (Auto) Eos # (Auto) Baso # (Auto) Abs Immat Gran (auto) Absolute Neuts (auto) Absolute Nucleated RBC Nucleated RBC % Sodium Potassium Chloride Carbon Dioxide Anion Gap BUN Creatinine Estim Creat Clear Calc Estimated GFR Glucose POC Capillary Glucose 338 H 283 H 340 H Calcium Magnesium Total Bilirubin AST ALT Alkaline Phosphatase Total Protein Albumin Discharge Plan Discharge Consulting providers: Mateusz Erwin ; Kanungo,Sriraj T. Patient Instructions: Heart Failure (DC), A-fib (Atrial Fibrillation) (GEN), Fall Prevention for Older Adults (GEN), Cardioversion (GEN), COVID-19 (Coronavirus Disease 2019) (GEN) Follow-up/Referrals: Lorraine Asif, SOCIAL MEDIA STRATEGISTIftikharC [Advanced Practice Nurse] - (You have a follow-up appointment on 06/22 2021 at 11:30 a.m.. Please arrive at 11:15 a.m.. Thank you.) Discharge Medications: No Action Eliquis 2.5 mg tablet 2.5 mg PO BID RF: 0 ferrous sulfate 325 mg (65 mg iron) tablet 325 mg PO DAILY RF: 0 omeprazole 40 mg capsule,delayed release(DR/EC) 40 mg PO DAILY RF: 0 Novolin R Flexpen 100 unit/mL (3 mL) insulin pen 1 sliding scale dose subcut USEASDIRECTD RF: 0 atorvastatin 40 mg tablet 40 mg PO HS RF: 0 calcitriol 0.5 mcg capsule 0.5 mcg PO MOWEFR RF: 0 melatonin 5 mg Tablet 5 mg PO HS PRN (Reason: Insomnia) RF: 0 fluticasone propionate 50 mcg/actuation [place],Suspension 2 spray INTRANASAL DAILY PRN (Reason: Allergy Symptoms) RF: 0 venlafaxine 75 mg capsule,extended release 24hr 75 mg PO HS RF: 0 Triphrocaps 1 mg capsule 1 cap PO DAILY RF: 0 pyridoxine (vitamin B6) 100 mg Tablet 100 mg PO DAILY RF: 0 prednisone 5 mg Tablet 5 mg PO DAILY RF: 0 brimonidine 0.2 % Drops 1 drp EACH EYE TID RF: 0 latanoprost 0.005 % Drops 1 drp EACH EYE HS RF: 0 aspirin 81 mg Tablet 81 mg PO DAILY RF: 0 carbidopa-levodopa 25-250 mg Tablet 1 tablet PO 0900,1700 Qty: 60 RF: 0 Semglee U-100 Insulin 100 unit/mL solution 20 unit subcut HS RF: 0 Lantus U-100 Insulin 100 unit/mL Solution 11 unit SUBCUT QAM Qty: 0 RF: 0 tamsulosin 0.4 mg Capsule 0.4 mg PO HS Qty: 30 RF: 0 midodrine 5 mg tablet 5 mg PO TID Qty: 90 RF: 0 Acidophilus Tablet,Chewable 1 tablet PO BID RF: 0 carbidopa-levodopa [Sinemet] 25-100 mg tablet 1 tablet PO 110
[2021-05-17 12:05] LABS: Glucose Point of Care 257 mg/dl (65-105)
--- NOTE | 2021-05-17 15:54 | ECG_ITS ---
Measurements Intervals [place] Rate: 65 P: 37 [place]: 218 QRS: -78 QRSD: 170 T: 32 QT: 509 QTc: 531 Interpretive Statements SINUS RHYTHM WITH FIRST DEGREE AV BLOCK RIGHT BUNDLE BRANCH BLOCK LEFT ANTERIOR FASCICULAR BLOCK BASELINE WANDER- I, II, AVR ABNORMAL ECG Electronically Signed On 05-17-2021 18:13:27 PRACTICE PROFESSIONAL by Lokesh Smith D.O.
[2021-05-17 16:45] LABS: Glucose Point of Care 334 mg/dl (65-105)
[2021-05-17] MEDS: ATORVASTATIN 40 MG TABLET PO (21:11)
[2021-05-17] MEDS: VENLAFAXINE HCL XR 75 MG CAP.ER.24H PO (21:28)
[2021-05-17] MEDS: LATANOPROST 0.005% OP SOLN 2.5 ML BTL 1 DROP EACH EYE (23:41)
[2021-05-18] VITALS (8 sets, daily range): BP systolic 86–159; BP diastolic 42–80; PULSE 62–68; RESP 18; TEMP 35.9–36.3; O2SAT 99–100
[2021-05-18] MEDS: VANCOMYCIN ORAL 125 MG/2.5 ML SYRUP PO ×2 (06:13→12:28)
[2021-05-18 06:32] LABS: Basophils Absolute Auto 0.1 K/mm3 (0.0-0.1); Basophils Percent Auto 0.6 % (0.2-1.2); Eosinophils Absolute Auto 0.1 K/mm3 (0-0.3); Eosinophils Percent Auto 1.4 % (0-4.4); Hematocrit 38.8 % (42.0-52.0); Hemoglobin 12.8 g/dL (14.0-18.0); Immature Granulocyte Absolute 0.04 K/mm3 (0.00-0.031); Immature Granulocyte Percent A 0.4 % (0-0.5); Immature Platelet Fraction Pct 3.9 % (0.9-11.2); Lymphocytes Absolute Auto 2.21 K/mm3 (0.9-3.2); Lymphocytes Percent Auto 21.6 % (18.3-44.2); Mean Corpuscular Hemoglobin 31.6 pg (26-34); Mean Corpuscular Volume 95.8 fl (80-100); Mean Platelet Volume 11.4 fl (7.4-10.4); Monocytes Absolute Auto 0.7 K/mm3 (0.1-0.6); Monocytes Percent Auto 6.5 % (2.6-8.5); Neutrophils Absolute Auto 7.1 K/mm3 (1.3-6.7); Neutrophils Percent Auto 69.5 % (45.5-73.1); Platelet Count Result 151 k/mm3 (150-375); Red Blood Count 4.05 M/mm3 (4.6-6.20); Red Cell Distribution Width 18.4 % (11.5-14.5); White Blood Count 10.2 K/mm3 (4.5-10.0)
[2021-05-18 06:48] LABS: Albumin Level 2.4 g/dL (3.5-5.1); Alkaline Phosphatase 65 U/L (38-126); Anion Gap 3 mmol/L (8-16); Aspartate Amino Transferase 19 U/L (17-59); Bilirubin,Total 0.5 mg/dL (0.2-1.3); Blood Urea Nitrogen 56 mg/dL (9-20); Calcium 8.1 mg/dL (8.4-10.2); Carbon Dioxide 23 mmol/L (22-30); Chloride 107 mmol/L (98-107); Estimated CRCL calculation 24 ml/min; Estimated Glomerular Filt Rate 25; Glucose 310 mg/dL (65-110); Potassium 4.4 mmol/L (3.4-5.0); Sodium 133 mmol/L (137-145)
--- NOTE | 2021-05-18 07:00 | PM.DS ---
DS: Admitting Diagnosis Discharge Date 05/18/21 0700 Admitting Diagnosis Afib RVR/UTI/Orthostatic hypotension DS: Discharge Diagnosis Discharge Diagnosis (1) Diarrhea: Code(s): R19.7 - Diarrhea, unspecified Status: Acute Assessment and Plan: Seems resolved at this time Multiple episodes of diarrhea Pt reports many episodes of diarrhea, however, nurse stated that it slowing down He has been on antibiotics from this visit, last visit, and even before that WBC is slightly elevated at 10.2 Continue oral vanco IV fluids which is off now Trend labs (2) Atrial fibrillation with rapid ventricular response: Code(s): I48.91 - Unspecified atrial fibrillation Status: Acute Assessment and Plan: Has converted to SR LEILA cardioversion performed Amiodarone PO 400mg daily Continuous telemetry: afib RVR with rate in the 130-140s Continue to monitor Cardiology consult thank you for your help VS are stable EKG shows: Afib RVR 132 Metoprolol 25mg PO BID, increased to 50mg PO BID Trend heart rate Heart rate is better controlled in the 90 Status post cardioversion 05/13/2021 (3) Elevated troponin: Code(s): R77.8 - Other specified abnormalities of plasma proteins Status: Acute Assessment and Plan: Likely secondary to chronic kidney disease and atrial fibrillation 1: 0.076, 0.073, 0.089, which are flat Cardiology on the case Continue to monitor Chest xray shows no acute cardiopulmonary findings (4) Status post transcatheter aortic valve replacement (TAVR) using bioprosthesis: Code(s): Z95.3 - Presence of xenogenic heart valve Status: Acute Assessment and Plan: Stable Continue to monitor (5) Parkinson disease: Code(s): G20 - Parkinson's disease Status: Acute Assessment and Plan: Unchanged Continue carbidopa levodopa (6) Orthostatic hypotension: Code(s): I95.1 - Orthostatic hypotension Status: Acute Assessment and Plan: Unchanged Orthostatic pressure seems to be more hypertensive L: 132/94, Sittin/81, Standing 142/108 Educated patient and about slow position changes (7) Chronic kidney disease, stage 4 (severe): Code(s): N18.4 - Chronic kidney disease, stage 4 (severe) Status: Chronic Assessment and Plan: Seems to be getting better current BUN/Cr 60/2.50 Nephrology on the case thank you for your help Avoid nephrotoxic medications Continue to monitor Status post transplantation approximately 13 years ago intact PANDYA some prednisone follows with [facility] transplant tacrolimus level is 6.8 which is therapeutic (8) CHF (congestive heart failure), NYHA class I: Code(s): I50.9 - Heart failure, unspecified Status: Chronic Assessment and Plan: Appears euvolemic Daily intake and output Continue to monitor Daily weights (9) COVID: Code(s): U07.1 - COVID-19 Status: Resolved Assessment and Plan: Resolved at this time This could be an old finding since the patient tested positive back in November This is a historical finding No infiltrates on chest x-ray Continue to monitor Supportive care (10) Fall: Code(s): W19.XXXA - Unspecified fall, initial encounter Status: Acute Assessment and Plan: Fall precautions. No injuries (11) Diabetes type 2, controlled: Code(s): E11.9 - Type 2 diabetes mellitus without complications Status: Acute Assessment and Plan: Glucose 228 SSI Hypoglycemia protocol trend glucose Accu-cheks Adjust therapy as indicated (12) Urinary tract infection: Qualifiers: Hematuria presence: with hematuria Urinary tract infection type: site unspecified Qualified Code(s): N39.0 - Urinary tract infection, site not specified; R31.9 - Hematuria, unspecified Code(s): N39.0 - U
[2021-05-18 07:29] LABS: Alanine Aminotransferase < 4 U/L (4-50)
[2021-05-18] MEDS: LIDOCAINE HCL 1% LOCAL INJ 2 ML AMPUL 5 ML INFILTRATE (08:10)
[2021-05-18 08:32] LABS: Glucose Point of Care 287 mg/dl (65-105)
[2021-05-18] MEDS: SODIUM BICARBONATE TAB 650 MG TABLET 1300 MG PO (08:53)
[2021-05-18] MEDS: PYRIDOXINE HCL 50 MG TABLET 100 MG PO (08:54)
[2021-05-18] MEDS: calcitrioL 0.25 MCG CAPSULE 0.5 MCG PO (08:54)
[2021-05-18] MEDS: SENNA/DOCUSATE SODIUM TABLET 1 TAB PO (08:54)
[2021-05-18] MEDS: APIXABAN 2.5 MG TABLET PO (08:54)
[2021-05-18] MEDS: PANTOPRAZOLE 40 MG TABLET PO (08:54)
[2021-05-18] MEDS: ACIDOPHILUS/BULGARICUS CHEWABLE TABLET 1 TABLET PO (08:54)
[2021-05-18] MEDS: VITAMIN B CMPLX/VIT C/FOLIC AC 1 CAPSULE 1 CAP PO (08:54)
[2021-05-18] MEDS: DOCUSATE SODIUM 100 MG CAPSULE PO (08:55)
[2021-05-18] MEDS: AMIODARONE HCL 200 MG TABLET PO (08:55)
[2021-05-18] MEDS: MIDODRINE HCL 2.5 MG TABLET 5 MG PO ×2 (08:55→12:29)
[2021-05-18] MEDS: allopurinoL 150 MG TABLET PO (08:55)
[2021-05-18] MEDS: ASPIRIN 81 MG ENTERIC TABLET PO (08:55)
[2021-05-18] MEDS: predniSONE 5 MG TABLET PO (08:55)
[2021-05-18] MEDS: BRIMONIDINE TARTRATE 0.2% OP SOLN 5 ML BTL 1 DROP EACH EYE ×2 (08:56→12:28)
[2021-05-18] MEDS: CARBIDOPA/LEVODOPA 25/250 MG TABLET 1 TABLET PO (08:56)
[2021-05-18] MEDS: INSULIN ASPART (*BKC) 100 UNITS/ML SUB-Q ×2 (08:56→12:29)
[2021-05-18] MEDS: TAMSULOSIN HCL 0.4 MG CAPSULE PO (08:56)
[2021-05-18] MEDS: amLODIPine BESYLATE 5 MG TABLET PO (08:56)
[2021-05-18] MEDS: FERROUS SULFATE 324 MG TABLET PO (08:56)
[2021-05-18] MEDS: BISACODYL 10 MG SUPPOSITORY RECTAL (08:56)
[2021-05-18] MEDS: METOPROLOL TARTRATE 50 MG TAB PO (08:56)
[2021-05-18] MEDS: INSULIN GLARGINE (*BKC) 100 UNITS/ML 11 UNITS SUB-Q (08:58)
--- NOTE | 2021-05-18 08:58 | P.PNNP_ITS ---
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 * follows with [facility] (Dr. Olivia) * last tacrolimus level was 6.8 (therapeutic) (4) Atrial fibrillation with rapid ventricular response: Code(s): I48.91 - Unspecified atrial fibrillation Status: Acute Assessment and Plan: * Cardiology recommendations noted * rate controlled * already on anticoagulation (5) UTI (urinary tract infection): Code(s): N39.0 - Urinary tract infection, site not specified Status: Acute Assessment and Plan: * urine culture with Enterococcus * on IV antibiotics (6) HTN (hypertension): Qualifiers: Hypertension type: essential hypertension Qualified Code(s): I10 - Essential (primary) hypertension Code(s): I10 - Essential (primary) hypertension Status: Chronic Assessment and Plan: * BP under reasonable control * continue amlodipine and metoprolol * follow trend of hemodynamics (7) Diabetes: Qualifiers: Diabetes mellitus type: type 2 Diabetes mellitus nursing home insulin use: with nursing home use Diabetes mellitus complication status: with neurologic complications Diabetes mellitus complication detail: with autonomic neuropathy Qualified Code(s): E11.43 - Type 2 diabetes mellitus with diabetic autonomic (poly)neuropathy; Z79.4 - terminologist (current) use of insulin Code(s): E11.9 - Type 2 diabetes mellitus without complications Status: Chronic Assessment and Plan: * follow Accu-Cheks * on sliding-scale insulin Will continue to follow - not opposed to discharge if otherwise medically stable. Subjective Date/time seen: 05/18/21 08:58 EMMETT catheter placed for IV antibiotics earlier today - tolerated procedure reasonably well; no apparent distress voiced at this time; no issues/events overnight or earlier this AM. Exam Narrative: General: chronically ill appearing male in NAD Heart: normal S1 and S2; no rub Lungs: clear to auscultation Abdomen: soft, nontender, nondistended, positive bowel sounds Extremities: no cyanosis or clubbing; no edema Skin: warm and intact Objective Data Vital Signs Vital Signs: Vital Signs Temp Pulse Resp BP Pulse Ox 05/18/21 09:00 100 05/18/21 08:56 67 05/18/21 08:55 67 05/18/21 08:00 35.9 C L 63 18 147/68 H 100 05/18/21 06:03 86/42 L 05/18/21 06:00 36.3 C L 65 18 159/80 H 99 05/18/21 04:00 64 05/18/21 00:00 68 05/17/21 22:00 36.2 C L 64 18
--- NOTE | 2021-05-18 08:58 | PM.PNNEP ---
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 follows with [facility] (Dr. Olivia) last tacrolimus level was 6.8 (therapeutic) (4) Atrial fibrillation with rapid ventricular response: Code(s): I48.91 - Unspecified atrial fibrillation Status: Acute Assessment and Plan: Cardiology recommendations noted rate controlled already on anticoagulation (5) UTI (urinary tract infection): Code(s): N39.0 - Urinary tract infection, site not specified Status: Acute Assessment and Plan: urine culture with Enterococcus on IV antibiotics (6) HTN (hypertension): Qualifiers: Hypertension type: essential hypertension Qualified Code(s): I10 - Essential (primary) hypertension Code(s): I10 - Essential (primary) hypertension Status: Chronic Assessment and Plan: BP under reasonable control continue amlodipine and metoprolol follow trend of hemodynamics (7) Diabetes: Qualifiers: Diabetes mellitus type: type 2 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 Subjective Date/time seen: 05/18/21 08:58 EMMETT catheter placed for IV antibiotics earlier today - tolerated procedure reasonably well; no apparent distress voiced at this time; no issues/events overnight or earlier this AM. Exam Narrative: General: chronically ill appearing male in NAD Heart: normal S1 and S2; no rub Lungs: clear to auscultation Abdomen: soft, nontender, nondistended, positive bowel sounds Extremities: no cyanosis or clubbing; no edema Skin: warm and intact Objective Data Vital Signs Vital Signs: Vital Signs Temp Pulse Resp BP Pulse Ox 05/18/21 09:00 100 05/18/21 08:56 67 05/18/21 08:55 67 05/18/21 08:00 35.9 C L 63 18 147/68 H 100 05/18/21 06:03 86/42 L 05/18/21 06:00 36.3 C L 65 18 159/80 H 99 05/18/21 04:00 64 05/18/21 00:00 68 05/17/21 22:00 36.2 C L 64 18 157/74 H 100 05/17/21 21:14 65 05/17/21 20:00 36.2 C L 64 18 157/74 H 100 05/17/21 18:09 66 105/52 L Intake/Output Intake/Output: Intake & Output 05/15/21 05/16/21 05/17/21 05/18/21 23:59 23:59 23:59 23:59 Intake Total 1410 2510 1200 820 Output Total 100 Balance 1410 2510 1100 820 Meds/Results Medications: Active Medications Generic Name Dose Route Start Last Admin Trade Name Ahsanq PRN Reason Stop Dose Admin Acetaminophen 650 mg 05/02/21 03:30 Acetaminophen 325 Mg Tablet PO Q6H PRN Mild Pain (1-3) Or Fever Hydrocodone Bitart/Ac
[2021-05-18 12:27] LABS: Glucose Point of Care 333 mg/dl (65-105)
[2021-05-18] MEDS: CARBIDOPA/LEVODOPA 25/100 MG TABLET 2 TABLET PO (12:28)
[2021-05-18] MEDS: CENTRAL LINE FLUSH 10 ML IV PUSH (12:29)
[2021-05-18 12:33] LABS: Glucose Point of Care 285 mg/dl (65-105)
[2021-05-18] MEDS: polyethylene glycoL 3350 17 GM POWD.PACK PO (12:41)
[2021-05-18 14:06] LABS: EDCOVIDSCREEN Negative (Negative)
== END 2021-05-18 16:15 | DRG 309 ==
LOC: ANHED 23:36 → ANHIMU 05-02 01:23 → ANH3MEDSUR 05-08 13:07 → ANHIMU 05-19 09:22
PROVIDERS: Internal Medicine; Internal Medicine Cardiovascular Disease; Internal Medicine Nephrology; Admitting Provider Internal Medicine; Emergency Provider Emergency Medicine; PCP Family Medicine; Visit Provider Nurse Practitioner
PROC: (CPT 93312; principal; 2021-05-12 13:00)
PROC: 5A2204Z Restoration of Cardiac Rhythm, Single (ICD-10-PCS; principal; 2021-05-13 13:00)
PROC: 5A2204Z Restoration of Cardiac Rhythm, Single (ICD-10-PCS; CPT 93312; 2021-05-13 13:00)
DX: I48.91 Unspecified atrial fibrillation (principal); I13.0 Hypertensive heart and chronic kidney disease with heart failure and stage 1 through stage 4 chronic kidney disease, or unspecified chronic kidney disease; N18.4 Chronic kidney disease, stage 4 (severe); I50.32 Chronic diastolic (congestive) heart failure; N39.0 Urinary tract infection, site not specified; N40.0 Benign prostatic hyperplasia without lower urinary tract symptoms; G20 Parkinson's disease; Z86.73 Personal history of transient ischemic attack (TIA), and cerebral infarction without residual deficits; G40.909 Epilepsy, unspecified, not intractable, without status epilepticus; E11.51 Type 2 diabetes mellitus with diabetic peripheral angiopathy without gangrene; E11.22 Type 2 diabetes mellitus with diabetic chronic kidney disease; I25.10 Atherosclerotic heart disease of native coronary artery without angina pectoris; Z20.822 Contact with and (suspected) exposure to COVID-19; I25.2 Old myocardial infarction; Z91.81 History of falling; Z80.0 Family history of malignant neoplasm of digestive organs; Z82.49 Family history of ischemic heart disease and other diseases of the circulatory system; R77.8 Other specified abnormalities of plasma proteins; Z95.3 Presence of xenogenic heart valve; I95.1 Orthostatic hypotension; E11.649 Type 2 diabetes mellitus with hypoglycemia without coma; W19.XXXA Unspecified fall, initial encounter; K59.00 Constipation, unspecified; Z88.8 Allergy status to other drugs, medicaments and biological substances; E87.5 Hyperkalemia; R10.9 Unspecified abdominal pain; R11.0 Nausea; E11.43 Type 2 diabetes mellitus with diabetic autonomic (poly)neuropathy; I48.92 Unspecified atrial flutter; R19.7 Diarrhea, unspecified; I44.30 Unspecified atrioventricular block; Z79.899 Other long term (current) drug therapy; R31.9 Hematuria, unspecified; Z79.82 Long term (current) use of aspirin; Z79.4 Long term (current) use of insulin; Z88.1 Allergy status to other antibiotic agents
CPT/HCPCS: 36415; 36556; 70450; 71046; 74018; 80053; 80069; 80197; 81001; 82948; 83605; 83735; 84100; 84484; 85025; 85055; 87077; 87086; 87088; 87106; 87181; 87186; 87426; 92960; 93005; 93312; 93320; 93325; 96361; 96365; 97110; 97163; 97166; 97530; 97535; 99285; A9270; C1751; C9803; J0696; J1335; J1815; J2001; J2405; J2704; J3370; J7040; J7120; J7512; U0003; U0005

== ENCOUNTER 2021-05-30 09:21 | Inpatient (IN) | payer MEDICARE, BC, SELFPAY ==
[2021-05-30] VITALS (26 sets, daily range): BP systolic 163–184; BP diastolic 67–86; PULSE 59–80; RESP 7–28; TEMP 35.9–37.2; O2SAT 71–100; BMI 29.5
--- NOTE | ~2021-05-30 | CT_ITS ---
EXAMINATION: CT brain wo con EXAM DATE: 05/30/2021 10:05 INDICATION: Unresponsive TECHNIQUE: Spiral CT of the head was performed without contrast. Axial, coronal and sagittal images were reviewed. The dose-length product (DLP) for this examination was 605.33 mGy-cm. The exposure w as tailored according to patient size, and iterative reconstruction (ASIR) was used as additional dos e reduction technique. Comparison is made to prior examination from 05/01/2021. FINDINGS: There is no acute intraparenchymal hemorrhage. No evidence of intraparenchymal brain mass lesion. No evidence of acute infarction. Please note that initial head CT has limited sensitivity f or small or acute infarctions. There is mild periventricular and subcortical hypodensity, nonspecific but probably related to small vessel ischemic disease. There is moderate prominence of the sulci a nd ventricles related to cerebral atrophy. There is intracranial carotid arteriosclerosis. There a re no extra-axial collections. There is no mass effect or midline shift. Patient has had bilateral ocular lens surgery. Soft tissue is unremarkable. Left mastoid effusion. IMPRESSION: 1. No acute intracranial findings. 2. Chronic age related findings. Reviewed, dictated and finalized at location A. NCE TRUER
--- NOTE | ~2021-05-30 | XR_ITS ---
EXAMINATION: XR chest 1V DATE: 05/30/2021 10:08 INDICATION: Unresponsive. TECHNIQUE: A single frontal view of the chest was obtained. COMPARISON: Chest single view 05/18/2021, chest CT 04/22/2021 FINDINGS: There is mild atelectasis in left lower lung zone. No pleural effusion or pneumothorax. Car diomegaly is noted. There are changes of aortic valve replacement. Median sternotomy wires are noted. IMPRESSION: 1. Mild atelectasis in left lower lung zone. 2. Cardiomegaly. Reviewed, dictated and finalized at location A. OR
--- NOTE | ~2021-05-30 | CT_ITS ---
EXAMINATION: CT abdomen pelvis wo con DATE: 06/02/2021 14:48 INDICATION: Nausea and vomiting TECHNIQUE: Computed tomography (CT) of the abdomen and pelvis was performed without intravenous contr ast. The dose-length product (DLP) was 1410.77 mGy-cm. Automated exposure control and iterative recon struction technique were employed. COMPARISON: 04/22/2021 FINDINGS: There are small pleural effusions. Cardiomegaly is noted. There are changes of aortic valve replacement. There are minimal airspace opacities in the right lower lobe. There is diffuse anasarca . Within the limitations of noncontrast examination, the liver, gallbladder, pancreas, and adrenal gl ands are normal. Punctate calcifications in an otherwise normal spleen likely represent healed granul omatous disease. There is severe atrophy of the kidneys. There is calcified atherosclerosis of the ao rta and many of the other arteries. The bladder is decompressed by Davidson catheter. There is diffuse w all thickening of the urinary bladder. The transplant kidney is present in the left pelvis. There are areas of gas within the calyces of the transplant kidney. No pathologically enlarged abdominal or pe lvic lymph nodes are identified. There is persistent mild wall thickening of the rectum. There is mil d lumbar spondylosis. IMPRESSION: 1. Persistent wall thickening of the rectum, consistent with colitis. 2. New foci of gas within calyces of the left pelvic transplant kidney, possibly reflux from urinary bladder however gas producing urinary tract infection is a consideration. Correlation with urinalysis is recommended. 2. Small pleural effusions. 3. Cardiomegaly. Reviewed, dictated and finalized at location B. 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 Persistent wall thickening of the rectum, consistent with colitis. 2. New foci of gas within calyces of the left pelvic transplant kidney, possibl y reflux from urinary bladder however gas producing urinary tract infection is a consideration. Correlation with urinalysis is recommended. 2. Small pleural effusions. 3. Cardiomegaly.
--- NOTE | 2021-05-30 09:50 | ECG_ITS ---
Measurements Intervals [place] Rate: 63 P: 59 [place]: 200 QRS: 254 QRSD: 160 T: 73 QT: 478 QTc: 492 Interpretive Statements SINUS RHYTHM MARKED RIGHT AXIS DEVIATION [QRS AXIS > 100] RIGHT BUNDLE BRANCH BLOCK [120+ ms QRS DURATION, UPRIGHT V1, 40+ ms S IN I/aVL/V4/V5/V6] COMPARED TO ECG 05/17/2021 16:12:29 NO SIGNIFICANT CHANGES Electronically Signed On 05-30-2021 15:41:19 DISABILITY ADVOCATE by Mateusz Erwin M.D.
--- NOTE | 2021-05-30 10:04 | ED.GENADULT ---
HPI - General Adult General Chief complaint: Unspecified Stated complaint: increased weakness/lethargy Time Seen by Provider: 05/30/21 09:29 Source: family and EMS Mode of arrival: EMS Limitations: altered mental status History of Present Illness HPI narrative: Patient is 75 years old white male came from nursing [facility]hab center with altered mental status. Patient got up from sleep at 7 AM, noticed that he is lethargic, cannot hold his head up, unable feed himself, does not answering question to the staff, shaking. History of dementia, wheelchair-bound, recurrent urinary tract infection, last antibiotic intake was few days ago, DNR. Related Data Home Medications Medication Instructions Recorded Confirmed atorvastatin 40 mg PO HS 02/10/19 05/02/21 calcitriol 0.5 mcg PO MOWEFR 02/10/19 05/02/21 fluticasone propionate 2 spray INTRANASAL DAILY PRN 02/10/19 05/02/21 melatonin 5 mg PO HS PRN 02/10/19 05/02/21 apixaban 2.5 mg tablet 2.5 mg PO BID 10/01/19 05/02/21 tacrolimus 1 mg capsule, 1 mg PO BID cap 12/17/19 05/02/21 immediate-release venlafaxine 75 mg PO HS 05/17/20 05/02/21 brimonidine 1 drp EACH EYE TID 06/24/20 05/02/21 prednisone 5 mg PO DAILY 06/24/20 05/02/21 ferrous sulfate 325 mg (65 mg 325 mg PO DAILY 07/05/20 05/02/21 iron) tablet omeprazole 40 mg capsule,delayed 40 mg PO DAILY cap 07/05/20 05/02/21 release Triphrocaps 1 cap PO DAILY 11/24/20 05/02/21 pyridoxine (vitamin B6) 100 mg PO DAILY 11/24/20 05/02/21 aspirin 81 mg PO DAILY 11/28/20 05/02/21 latanoprost 1 drp EACH EYE HS 11/28/20 05/02/21 docusate sodium [Colace] 100 mg PO BID 03/14/21 05/02/21 polyethylene glycol 3350 [Miralax] 17 g PO BID PRN 03/14/21 05/02/21 insulin regular human 100 unit/mL 1 sliding scale dose SUBCUT 04/05/21 05/02/21 (3 mL) subcutaneous pen USEASDIRECTD Semglee U-100 Insulin 20 unit SUBCUT HS 04/11/21 05/02/21 Acidophilus 1 tablet PO BID 05/02/21 05/02/21 carbidopa-levodopa [Sinemet] 1 tablet PO 1100,2100 05/02/21 05/02/21 Allergies Allergy/AdvReac Type Severity Reaction Status Date / Time trimethobenzamide Allergy Severe Loss of Verified 04/12/21 11:13 Consciousness fish oil Allergy Mild Rash Verified 04/12/21 11:13 levofloxacin Allergy Unknown Hives Verified 04/12/21 11:13 metoclopramide AdvReac Severe Other Verified 04/12/21 11:13 ondansetron AdvReac Severe Other Verified 04/12/21 11:13 diphenhydramine AdvReac Unknown aggi Verified 04/12/21 11:13 NSAIDS (Non-Steroidal AdvReac Unknown renal Verified 04/12/21 11:13 Anti-Inflamma insuff Review of Systems Review of Systems: ROS unobtainable: Yes unobtainable due to medical condition and unobtainable due to mental status PMFSH Past Medical History Medical History Afib Anemia BPH (benign prostatic hyperplasia) CHF (congestive heart failure), NYHA class I Echo from 12/02/2020 read as the following 1. Complete two-dimensional, color flow and Doppler transthoracic echocardiogram is performed. 2. Left ventricular chamber dimension is normal. 3. Left ventricular systolic function is normal, estimated at 55-60%. 4. There is mildly increased left ventricular wall thickness. 5. The left ventricular diastolic function is grade II diastolic dysfunction. 6. E/e' 16 is elevated. 7. Right ventricular systolic function is reduced based on abnormal TAPSE 1.1 cm. 8. Left atrial chamber dimension is mildly enlarged. 9. The bioprosthetic aortic valve is not well visualized. 10. The mitral valve has mildly calcified leaflets and mildly calcified annulus. 11. No pulmonary hypertension, estimated pulmonary arterial systolic pressure is 13 mmHg. 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
[2021-05-30 10:28] LABS: Basophils Absolute Auto 0.1 K/mm3 (0.0-0.1); Basophils Percent Auto 0.6 % (0.2-1.2); Eosinophils Absolute Auto 0.2 K/mm3 (0-0.3); Eosinophils Percent Auto 2.2 % (0-4.4); Hematocrit 43.6 % (42.0-52.0); Immature Granulocyte Absolute 0.05 K/mm3 (0.00-0.031); Immature Granulocyte Percent A 0.6 % (0-0.5); Lymphocytes Absolute Auto 2.82 K/mm3 (0.9-3.2); Lymphocytes Percent Auto 34.8 % (18.3-44.2); Mean Corpuscular HGB Conc 32.1 g/dl (32-36); Mean Corpuscular Hemoglobin 31.3 pg (26-34); Mean Corpuscular Volume 97.3 fl (80-100); Mean Platelet Volume 11.7 fl (7.4-10.4); Monocytes Absolute Auto 0.7 K/mm3 (0.1-0.6); Neutrophils Absolute Auto 4.3 K/mm3 (1.3-6.7); Neutrophils Percent Auto 52.8 % (45.5-73.1); Platelet Count Result 160 k/mm3 (150-375); Red Blood Count 4.48 M/mm3 (4.6-6.20); Red Cell Distribution Width 18.7 % (11.5-14.5); White Blood Count 8.1 K/mm3 (4.5-10.0)
[2021-05-30 10:38] LABS: INR 1.2
[2021-05-30 10:39] LABS: Lactic Acid Reflex 1.1 mmol/L (0.7-2.1)
[2021-05-30 10:44] LABS: Add Urine Microscopic? YES; Appearance Urine Turbid (Clear); Bilirubin Urine Negative (Negative); Blood Urine 2+ (Negative); Color Urine Yellow (Yellow); Glucose Urine UA Negative (Negative); Ketones Urine Negative (Negative); Leukocyte Esterase Ur 3+ LEU/UL (Negative); Nitrate Urine Negative (Negative); Protein Urine 2+ mg/dL (Negative); RBC Urine >75 /hpf (0-2); Specific Grav Ur 1.015 (1.001-1.035); Urobilinogen Urine Negative mg/dL (<2.0); WBC Clumps Urine Present /HPF; WBC Urine >75 /hpf
[2021-05-30 11:24] LABS: Alanine Aminotransferase 19 U/L (4-50); Alkaline Phosphatase 152 U/L (38-126); Anion Gap 2 mmol/L (8-16); Aspartate Amino Transferase 56 U/L (17-59); Bilirubin,Total 0.6 mg/dL (0.2-1.3); Blood Urea Nitrogen 53 mg/dL (9-20); Calcium 8.4 mg/dL (8.4-10.2); Carbon Dioxide 24 mmol/L (22-30); Chloride 111 mmol/L (98-107); Estimated CRCL calculation 24 ml/min; Estimated Glomerular Filt Rate 24; Glucose 79 mg/dL (65-110); Potassium 5.1 mmol/L (3.4-5.0); Sodium 137 mmol/L (137-145)
[2021-05-30 11:40] LABS: Troponin I 0.036 ng/mL (0.000-0.034)
[2021-05-30] MEDS: SODIUM CHLORIDE 0.9% IV 1,000 ML 75 ML IV CONT (12:04)
--- NOTE | 2021-05-30 13:36 | ADMGEN ---
This patient, Maris Jackman, was admitted to [facility] Surg Room 317-01. Patient/family oriented to hospital policies and general routines including ID bracelet, bed and alarms, visiting hours, pain management, procedures, bathroom and other care routines, personal items, smoking policy, room service/diet, and visiting hours. Information on how to activate the Rapid Response Team has been discussed. Patient/Family are encouraged to report perceived risks to care and to ask questions if they do not understand what they are told or what they should do.
[2021-05-30 14:21] LABS: Glucose Point of Care 122 mg/dl (65-105)
--- NOTE | 2021-05-30 14:31 | PHAR ---
HOME MED: MOTEGRITY 2 MG, 1 TABLET (2 MG) PO ONCE A DAY. VERIFIED BY PHARMACY. HOME MED: TACROLIMUS 1 MG, 1 CAPSULE (1 MG) PO TWICE A DAY. VERIFIED BY PHARMACY.
--- NOTE | 2021-05-30 14:34 | PHAR ---
HOME MED: MIRIAN ROOT 550 MG, UNABLE TO IDENTIFY DUE TO LACK OF IDENTIFIABLE MARKINGS. WE ASSUME THE MEDICATION IS WHAT IS ON THE BOTTLES LABEL.
--- NOTE | 2021-05-30 16:45 | PM.IMHP ---
H&P: HPI History of Present Illness Date/Time: 05/30/21 16:45 Chief Complaint: Weakness and confusion. 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 He is well known to the hospitalist service from multiple lengthy admissions over the past 6 months for falls, altered mental status, orthostatic hypotension, and others. He was most recently discharged on 05/18/2021 to [facility] after a nearly 2.5 week stay in which he was initially admitted for atrial fibrillation with rapid ventricular response for which he was eventually cardioverted. He had a lot of problems with orthostatic hypotension during that stay and it was decided that we were going to have to tolerate supine hypertension and continue the patient on midodrine. Additionally he had a urine culture which grew Enterococcus and yeast and he was discharged with a midline to complete a course of vancomycin. The yeast was not treated. Due to ongoing issues with urinary retention, he had an indwelling Davidson catheter though in a state of confusion he removed that and he was voiding without troubles and he has been without a catheter for the past several weeks without reported issue. According to the patient's , she sees him nearly every day and he has been doing quite well, participating in physical therapy 1 to 2 hours a day. This morning he ?suddenly? became lethargic and was not responding well to the [facility] staff, making only groaning noises which prompted a trip back to the ER. Vital signs were stable on arrival to the emergency department and he has been afebrile. White blood cell count was 8.1 with a normal differential and his BUN and creatinine are stable on review of previous labs. Brain CT and chest x-ray showed no acute findings. Urinalysis was once again abnormal with 2+ protein, 2+ blood, 3+ leukocyte esterase, greater than 75 rbc's and wbc's, and white blood cell clumps. He has since been admitted for apparent urinary tract infection and confusion. At the time my evaluation he has just finished eating his lunch tray and he was able to feed himself without issue. He had no complaints and denied fever, chills, sweats, cold or flu symptoms, chest pain, shortness breast, vomiting, diarrhea, and dysuria. Review of Systems Review of Systems: Twelve systems were reviewed. The patient's was startled by his weight of 93.5 kg today and she reports that this is nearly 20 lb more than what he typically weighs. Edema was noted in his hands and lower extremities. Patient reports that he is emptying his bladder without issue. He denies orthopnea and PND. Appetite has been good. He denies dysphagia and he ate lunch without issue. No dysuria or hematuria. He denies abdominal pain and low back discomfort. Except as documented, all other systems were reviewed and are negative. [facility] Past Medical History Medical History (Updated 05/30/21 @ 19:33 by Nathaly Medellin PA-C) Anemia Benign prostatic hyperplasia Cerebrovascular accident Chronic anticoagulation Chronic kidney disease, stage 4 (severe) Congestive heart failure Echo from 12/02/2020 showed normal LV size and function with an estimated EF of 55-60%, mild left ventricular wall thickness, grade 2 diastolic dysfunction, and reduced right ventricular systolic function. Coronary artery disease Depression Dry mouth Gastroparesis Glaucoma Gout Hyperlipidemia Hypertension Insulin dependent type 2 diabetes mellitus Myocardial infarction Parkinson's disease Paroxysmal atrial fibrillation With history of cardioversion. Peripheral vascular disease Seizures Following fall and subdura
[2021-05-30 20:30] LABS: Hemoglobin A1C 6.6 % (<5.7)
[2021-05-30 20:58] LABS: Glucose Point of Care 95 mg/dl (65-105)
[2021-05-30] MEDS: LATANOPROST 0.005% OP SOLN 2.5 ML BTL 1 DROP EACH EYE (21:09)
[2021-05-30] MEDS: BRIMONIDINE TARTRATE 0.2% OP SOLN 5 ML BTL 1 DROP EACH EYE (21:09)
[2021-05-30] MEDS: ATORVASTATIN 40 MG TABLET PO (21:09)
[2021-05-30] MEDS: CARBIDOPA/LEVODOPA 25/100 MG TABLET 1 TABLET PO (21:09)
[2021-05-30] MEDS: TAMSULOSIN HCL 0.4 MG CAPSULE PO (21:09)
[2021-05-30] MEDS: VENLAFAXINE HCL XR 75 MG CAP.ER.24H PO (21:09)
[2021-05-30] MEDS: METOPROLOL TARTRATE 50 MG TAB PO (21:10)
[2021-05-30] MEDS: MICONAZOLE NITRATE 2% CREAM 30 GM TUBE 1 APPLIC TOPICAL (21:10)
--- NOTE | 2021-05-30 21:43 | PHAR ---
HOME MED VERIFIED = [facility] [id number] MOTEGRITY 2 MG 1 TAB ONCE A DAY.
[2021-05-30 21:47] LABS: Anion Gap 4 mmol/L (8-16); Blood Urea Nitrogen 55 mg/dL (9-20); Calcium 8.4 mg/dL (8.4-10.2); Carbon Dioxide 21 mmol/L (22-30); Chloride 113 mmol/L (98-107); Estimated CRCL calculation 25 ml/min; Estimated Glomerular Filt Rate 25; Glucose 98 mg/dL (65-110); Magnesium 1.7 mg/dL (1.6-2.3); Potassium 5.9 mmol/L (3.4-5.0); Sodium 138 mmol/L (137-145)
--- NOTE | 2021-05-30 22:32 | ECG_ITS ---
Measurements Intervals [place] Rate: 76 P: 56 MS: 193 QRS: -87 QRSD: 146 T: 48 QT: 453 QTc: 511 Interpretive Statements SINUS RHYTHM RIGHT BUNDLE BRANCH BLOCK [120+ ms QRS DURATION, UPRIGHT V1, 40+ ms S IN I/aVL/V4/V5/V6] LEFT ANTERIOR FASCICULAR BLOCK [QRS AXIS <= -45, QR IN I, RS IN II] ABNORMAL ECG COMPARED TO ECG 05/30/2021 09:28:31 LEFT ANTERIOR FASCICULAR BLOCK NOW PRESENT Electronically Signed On 05-31-2021 14:52:51 INVOICE CLERK by Gabriel Cabral M.D.
[2021-05-30] MEDS: CALCIUM GLUC 1,000 MG/NS 50 ML 1,000 MG/50 ML BAG 100 MG IVPB (22:59)
[2021-05-30] MEDS: SODIUM BICARBONATE 8.4% 50 MEQ/50 ML SYRINGE IV PUSH (23:00)
[2021-05-30] MEDS: SODIUM POLYSTYRENE SULFONONATE 15 GM/60 ML BTL 30 GM RECTAL (23:01)
[2021-05-30] MEDS: FUROSEMIDE INJ 40 MG/4 ML VIAL 20 MG IV PUSH (23:02)
[2021-05-31] VITALS (9 sets, daily range): BP systolic 155–177; BP diastolic 59–84; PULSE 68–87; RESP 14–18; TEMP 35.7–37.4; O2SAT 91–100
[2021-05-31 00:08] LABS: Troponin I 0.026 ng/mL (0.000-0.034)
[2021-05-31 01:03] LABS: Anion Gap 4 mmol/L (8-16); Blood Urea Nitrogen 57 mg/dL (9-20); Calcium 8.7 mg/dL (8.4-10.2); Carbon Dioxide 20 mmol/L (22-30); Chloride 112 mmol/L (98-107); Estimated CRCL calculation 23 ml/min; Estimated Glomerular Filt Rate 23; Glucose 81 mg/dL (65-110); Potassium 5.6 mmol/L (3.4-5.0); Sodium 136 mmol/L (137-145)
[2021-05-31] MEDS: BRIMONIDINE TARTRATE 0.2% OP SOLN 5 ML BTL 1 DROP EACH EYE ×3 (06:13→20:20)
[2021-05-31 06:45] LABS: Hematocrit 36.8 % (42.0-52.0); Hemoglobin 12.3 g/dL (14.0-18.0); Mean Corpuscular HGB Conc 33.4 g/dl (32-36); Mean Corpuscular Hemoglobin 31.4 pg (26-34); Mean Corpuscular Volume 93.9 fl (80-100); Mean Platelet Volume 11.1 fl (7.4-10.4); Platelet Count Result 145 k/mm3 (150-375); Red Blood Count 3.92 M/mm3 (4.6-6.20); Red Cell Distribution Width 17.9 % (11.5-14.5); White Blood Count 8.1 K/mm3 (4.5-10.0)
[2021-05-31 06:53] LABS: Anion Gap 4 mmol/L (8-16); Blood Urea Nitrogen 54 mg/dL (9-20); Carbon Dioxide 22 mmol/L (22-30); Chloride 113 mmol/L (98-107); Estimated CRCL calculation 23 ml/min; Estimated Glomerular Filt Rate 23; Glucose 60 mg/dL (65-110); Magnesium 1.6 mg/dL (1.6-2.3); Potassium 4.9 mmol/L (3.4-5.0); Sodium 139 mmol/L (137-145)
[2021-05-31] MEDS: DEXTROSE 50% 25 GM/50 ML SYRINGE IV PUSH (06:56)
[2021-05-31 07:34] LABS: Glucose Point of Care 107 mg/dl (65-105)
[2021-05-31] MEDS: SENNA/DOCUSATE SODIUM TABLET 1 TAB PO (10:03)
[2021-05-31] MEDS: VITAMIN B CMPLX/VIT C/FOLIC AC 1 CAPSULE 1 CAP PO (10:03)
[2021-05-31] MEDS: PYRIDOXINE HCL 50 MG TABLET 100 MG PO (10:04)
[2021-05-31] MEDS: FERROUS SULFATE 324 MG TABLET PO (10:04)
[2021-05-31] MEDS: allopurinoL 150 MG TABLET PO (10:04)
[2021-05-31] MEDS: PANTOPRAZOLE 40 MG TABLET PO ×2 (10:04→20:19)
[2021-05-31] MEDS: predniSONE 5 MG TABLET PO (10:04)
[2021-05-31] MEDS: MIDODRINE HCL 2.5 MG TABLET 5 MG PO ×2 (10:05→13:55)
[2021-05-31] MEDS: AMIODARONE HCL 200 MG TABLET PO (10:05)
[2021-05-31] MEDS: CARBIDOPA/LEVODOPA 25/100 MG TABLET 1 TABLET PO ×2 (10:05→20:19)
[2021-05-31] MEDS: APIXABAN 2.5 MG TABLET PO ×2 (10:05→17:10)
[2021-05-31] MEDS: CARBIDOPA/LEVODOPA 25/250 MG TABLET 1 TABLET PO ×2 (10:05→17:10)
[2021-05-31] MEDS: METOPROLOL TARTRATE 50 MG TAB PO ×2 (10:05→20:19)
[2021-05-31] MEDS: ASPIRIN 81 MG CHEWABLE TABLET PO (10:06)
[2021-05-31] MEDS: amLODIPine BESYLATE 5 MG TABLET PO (10:06)
[2021-05-31] MEDS: MICONAZOLE NITRATE 2% CREAM 30 GM TUBE 1 APPLIC TOPICAL ×2 (10:07→20:21)
--- NOTE | 2021-05-31 10:14 | PM.IMPN ---
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 he has known h/o recurrent UTI. 1)Acute Encephalopathy: ?related to UTI Seems to have returned to baseline Frequent reorientation PT/OT 2)?UTI His urinalyses have been abnormal with most visits in the last 6 months and his urine cultures at times have showed no growth but he has also grown out ESBL Klebsiella oxytoca, coag negative staphylococcus, Proteus mirabilis, Enterococcus species, and [place]a albicans. Urine culture on 05/13/2021 (obtained from Davidson catheter) grew greater than 100,000 CFUs of Enterococcus species for which he completed a long course of IV vancomycin on 05/25/2021 in addition to Augusta albicans, not treated. c/w vanc+Ceftriaxone Needs ID evaluation if possible (3) Elevated troponin: no chest pain Will not pursue further due to h/o CKD (4) Chronic kidney disease, stage 4 (severe): Seems to be at base line as of now F/u with BMP in AM Avoid nephrotoxins if worsens will call nephrology consult (5) Paroxysmal atrial fibrillation: c/w amiodarone c/w Eliquis (6) Insulin dependent type 2 diabetes mellitus: BG check TID AC and HS HBA1C6.6 BG running low normal d/c lantus c/w mid dose SS insulin premeal Adjust dose as needed (7) Parkinson disease: Continue carbidopa levodopa. (8) Status post kidney transplant: Continue tacrolimus and prednisone. (9) HTN: Increase norvasc c/w metoprolol holding parameters on midodrine (10)Code:DNR (11)DVT ppx: On Eliquis (12)Dispo:pending improvement Time Spent With Patient Time with patient: 25 - 35 minutes Subjective Date/time seen: 05/31/21 10:14 Interval history: no acute events overnight, patient calm Review of Systems Review of Systems: unable to obtain, patient is awake alert but seems uninterested in responding to questions ROS unobtainable: Yes other Exam Const: General: no acute distress HENMT: Mouth: Yes Abnormal oral and palatal mucosa present Eyes: General: appearance normal, both eyes and all related structures Neck: Neck: supple Resp: Auscultation: clear to auscultation bilaterally Cardio: Rate: regular rate Rhythm: regular rhythm GI: GI Palp: Yes Soft to palpation Auscultation: normal bowel sounds Skin: General skin exam: normal color Objective Data Vital Signs Vital Signs: Vital Signs - 24 hr 05/30/21 10:22 05/30/21 10:31 05/30/21 10:46 Temperature Pulse Rate 64 63 62 Respiratory Rate 28 H 27 H 16 Blood Pressure 182/81 H 178/79 H 177/82 H Pulse Oximetry 100 100 81 L 05/30/21 11:01 05/30/21 11:30 05/30/21 11:32 Temperature Pulse Rate 61 66 66 Respiratory Rate 13 17 19 Blood Pressure 182/82 H 181/86 H Pulse Oximetry 100 71 L 05/30/21 11:43 05/30/21 11:45 05/30/21 11:46 Temperature 97.2 F L Pulse Rate 65 63 63 Respiratory Rate 16 11 L 14 Blood Pressure 184/84 H 184/84 H Pulse Oximetry 100 100 100 05/30/21 11:47 05/30/21 12:00 05/30/21 12:01 Temperature Pulse Rate 64 63 68 Respiratory Rate 7 L 16 10 L Blood Pressure 184/77 H 181/78 H Pulse Oximetry 100 100 100 05/30/21 12:15 05/30/21 12:16 05/30/21 12:30 Temperature 98.1 F Pulse Rate 65 65 65 Respiratory Rate 17 14 18 Blood Pressure 175/78 H Pulse Oximetry 100 100 05/30/21 12:32 05/30/21 13:40 05/30/21 14:00 Temperature 98.1 F 96.6 F L 97.3 F L Pulse Rate 65 59 L 63 Respiratory Rate 14 18 19 Blood Pressure 175/78 H 168/74 H 165/71 H Pulse Oximetry 100 100 100 05/30/21 16:00 05/30/21 20:00 05/30/21 21:10 Temperature 97.2 F L 98.7 F Pulse Rate 65 76 76 Respiratory Rate 19 16 Blood Pressure 163/82 H 169/85 H Pulse Oximetry 100 100 05/30/21 23:55 05/31/21 00:00 05/31/21 03:43 Temperature 98.9 F 99.3 F Pulse Rate 80 8
[2021-05-31 11:49] LABS: Glucose Point of Care 164 mg/dl (65-105)
[2021-05-31 16:33] LABS: Glucose Point of Care 320 mg/dl (65-105)
[2021-05-31] MEDS: ACIDOPHILUS/BULGARICUS CHEWABLE TABLET 1 TABLET PO (17:10)
[2021-05-31] MEDS: INSULIN ASPART (*BKC) 100 UNITS/ML SUB-Q (17:10)
[2021-05-31] MEDS: TAMSULOSIN HCL 0.4 MG CAPSULE PO (20:19)
[2021-05-31] MEDS: VENLAFAXINE HCL XR 75 MG CAP.ER.24H PO (20:19)
[2021-05-31] MEDS: ATORVASTATIN 40 MG TABLET PO (20:19)
[2021-05-31] MEDS: LATANOPROST 0.005% OP SOLN 2.5 ML BTL 1 DROP EACH EYE (20:20)
[2021-05-31 20:36] LABS: Glucose Point of Care 305 mg/dl (65-105)
[2021-06-01] VITALS (9 sets, daily range): BP systolic 153–178; BP diastolic 66–81; PULSE 63–73; RESP 16–20; TEMP 35.6–36.4; O2SAT 95–100
[2021-06-01] MEDS: BRIMONIDINE TARTRATE 0.2% OP SOLN 5 ML BTL 1 DROP EACH EYE ×3 (06:23→20:18)
[2021-06-01 06:32] LABS: Anion Gap 6 mmol/L (8-16); Blood Urea Nitrogen 55 mg/dL (9-20); Calcium 7.7 mg/dL (8.4-10.2); Carbon Dioxide 21 mmol/L (22-30); Chloride 110 mmol/L (98-107); Estimated CRCL calculation 26 ml/min; Estimated Glomerular Filt Rate 27; Glucose 276 mg/dL (65-110); Potassium 5.3 mmol/L (3.4-5.0); Sodium 137 mmol/L (137-145)
[2021-06-01 06:33] LABS: Basophils Absolute Auto 0.1 K/mm3 (0.0-0.1); Basophils Percent Auto 0.8 % (0.2-1.2); Eosinophils Absolute Auto 0.1 K/mm3 (0-0.3); Hematocrit 38.6 % (42.0-52.0); Hemoglobin 12.5 g/dL (14.0-18.0); Immature Granulocyte Absolute 0.02 K/mm3 (0.00-0.031); Immature Granulocyte Percent A 0.3 % (0-0.5); Lymphocytes Absolute Auto 2.08 K/mm3 (0.9-3.2); Lymphocytes Percent Auto 31.6 % (18.3-44.2); Mean Corpuscular HGB Conc 32.4 g/dl (32-36); Mean Corpuscular Hemoglobin 32.1 pg (26-34); Mean Platelet Volume 11.3 fl (7.4-10.4); Monocytes Absolute Auto 0.6 K/mm3 (0.1-0.6); Monocytes Percent Auto 9.1 % (2.6-8.5); Neutrophils Absolute Auto 3.7 K/mm3 (1.3-6.7); Neutrophils Percent Auto 56.2 % (45.5-73.1); Platelet Count Result 148 k/mm3 (150-375); Red Cell Distribution Width 18.1 % (11.5-14.5); White Blood Count 6.6 K/mm3 (4.5-10.0)
[2021-06-01] MEDS: MIDODRINE HCL 2.5 MG TABLET 5 MG PO ×3 (08:56→17:04)
[2021-06-01] MEDS: PYRIDOXINE HCL 50 MG TABLET 100 MG PO (08:57)
[2021-06-01] MEDS: ASPIRIN 81 MG CHEWABLE TABLET PO (08:57)
[2021-06-01] MEDS: AMIODARONE HCL 200 MG TABLET PO (08:57)
[2021-06-01] MEDS: METOPROLOL TARTRATE 50 MG TAB PO ×2 (08:57→20:17)
[2021-06-01] MEDS: allopurinoL 150 MG TABLET PO (08:57)
[2021-06-01] MEDS: ACIDOPHILUS/BULGARICUS CHEWABLE TABLET 1 TABLET PO ×2 (08:57→17:03)
[2021-06-01] MEDS: amLODIPine BESYLATE 5 MG TABLET 10 MG PO (08:58)
[2021-06-01] MEDS: APIXABAN 2.5 MG TABLET PO ×2 (08:58→17:04)
[2021-06-01] MEDS: calcitrioL 0.25 MCG CAPSULE 0.5 MCG PO (08:58)
[2021-06-01] MEDS: FERROUS SULFATE 324 MG TABLET PO (08:58)
[2021-06-01] MEDS: CARBIDOPA/LEVODOPA 25/250 MG TABLET 1 TABLET PO ×2 (08:59→17:04)
[2021-06-01] MEDS: MICONAZOLE NITRATE 2% CREAM 30 GM TUBE 1 APPLIC TOPICAL ×2 (09:00→20:18)
[2021-06-01] MEDS: VITAMIN B CMPLX/VIT C/FOLIC AC 1 CAPSULE 1 CAP PO (09:01)
[2021-06-01] MEDS: PANTOPRAZOLE 40 MG TABLET PO ×2 (09:01→20:17)
[2021-06-01] MEDS: predniSONE 5 MG TABLET PO (09:01)
[2021-06-01] MEDS: INSULIN ASPART (*BKC) 100 UNITS/ML SUB-Q ×3 (09:07→17:04)
[2021-06-01 09:08] LABS: Glucose Point of Care 250 mg/dl (65-105)
[2021-06-01] MEDS: CARBIDOPA/LEVODOPA 25/100 MG TABLET 1 TABLET PO ×2 (11:14→20:17)
[2021-06-01 11:50] LABS: Glucose Point of Care 251 mg/dl (65-105)
[2021-06-01 16:33] LABS: Magnesium 1.8 mg/dL (1.6-2.3)
--- NOTE | 2021-06-01 16:38 | PM.IMPN ---
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 Status: Acute (7) Insulin dependent type 2 diabetes mellitus: Code(s): E11.9 - Type 2 diabetes mellitus without complications; Z79.4 - 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 he has known h/o recurrent UTI. # Acute Encephalopathy: ?related to UTI Seems to have returned to baseline Frequent reorientation PT/OT # ? UTI His urinalyses have been abnormal with most visits in the last 6 months and his urine cultures at times have showed no growth but he has also grown out ESBL Klebsiella oxytoca, coag negative staphylococcus, Proteus mirabilis, Enterococcus species, and [place]a albicans. Urine culture on 05/13/2021 (obtained from Davidson catheter) grew greater than 100,000 CFUs of Enterococcus species for which he completed a long course of IV vancomycin on 05/25/2021 in addition to [place] albicans, not treated. c/w vanc+Ceftriaxone Needs ID evaluation if possible Urine culture with Klebsiella ESBL Will switch antibiotic to ertapenem He has recurrent UTI. With multiple different bacteria as. Bladder scan post residual is elevated more than 300 cc. He is incontinent to urine. Also on Flomax. He also has transplant kidney and on immunosuppression with tacrolimus and prednisone which predisposes him to get recurrent infection. He was once on Davidson catheter which was eventually discontinued. The evidence of ongoing elevated post residual volume. Will consult Urology for further direction to prevent UTIs. Prophylactic antibiotics were discussed with the family today however unsure what would be ideal agent to use as he has grown several different bacteria as in the past and some of them are ESBL and multidrug resistant bacteria. # Elevated troponin: no chest pain Will not pursue further due to h/o CKD # Chronic kidney disease, stage 4 (severe): Seems to be at base line as of now Remains stable Avoid nephrotoxins if worsens will call nephrology consult # Paroxysmal atrial fibrillation: c/w amiodarone c/w Eliquis # Insulin dependent type 2 diabetes mellitus: BG check TID AC and HS HBA1C6.6 BG running low normal d/c lantus c/w mid dose SS insulin premeal Adjust dose as needed # Parkinson disease: Continue carbidopa levodopa. # Status post kidney transplant: Continue tacrolimus and prednisone. # HTN: Increase norvasc c/w metoprolol holding parameters on midodrine # Code:DNR # DVT ppx: On Eliquis # Dispo:pending improvement Subjective Date/time seen: 06/01/21 16:38 Interval history: 06/01/2021 present with altered mental status. Is more alert today and answering questions. According to the was at bedside he has getting better. No other complaints. Review of Systems Review of Systems: All systems reviewed & are unremarkable except as noted in
[2021-06-01 16:46] LABS: Glucose Point of Care 235 mg/dl (65-105)
[2021-06-01] MEDS: ERTAPENEM 1 GM/NS 50 ML 1 GM/50 ML BAG IVPB (17:53)
[2021-06-01] MEDS: LATANOPROST 0.005% OP SOLN 2.5 ML BTL 1 DROP EACH EYE (20:17)
[2021-06-01] MEDS: ATORVASTATIN 40 MG TABLET PO (20:17)
[2021-06-01] MEDS: TAMSULOSIN HCL 0.4 MG CAPSULE PO (20:17)
[2021-06-01] MEDS: VENLAFAXINE HCL XR 75 MG CAP.ER.24H PO (20:17)
[2021-06-01 20:39] LABS: Glucose Point of Care 221 mg/dl (65-105)
[2021-06-02] VITALS (10 sets, daily range): BP systolic 130–163; BP diastolic 62–82; PULSE 63–72; RESP 16–18; TEMP 36.1–36.5; O2SAT 96–100
[2021-06-02] MEDS: BRIMONIDINE TARTRATE 0.2% OP SOLN 5 ML BTL 1 DROP EACH EYE ×3 (05:48→20:14)
[2021-06-02 06:07] LABS: Basophils Percent Auto 0.5 % (0.2-1.2); Eosinophils Absolute Auto 0.1 K/mm3 (0-0.3); Eosinophils Percent Auto 1.8 % (0-4.4); Hematocrit 38.9 % (42.0-52.0); Hemoglobin 12.2 g/dL (14.0-18.0); Immature Granulocyte Absolute 0.05 K/mm3 (0.00-0.031); Immature Granulocyte Percent A 0.6 % (0-0.5); Lymphocytes Absolute Auto 2.64 K/mm3 (0.9-3.2); Lymphocytes Percent Auto 33.4 % (18.3-44.2); Mean Corpuscular HGB Conc 31.4 g/dl (32-36); Mean Corpuscular Hemoglobin 31.6 pg (26-34); Mean Corpuscular Volume 100.8 fl (80-100); Mean Platelet Volume 11.4 fl (7.4-10.4); Monocytes Absolute Auto 0.6 K/mm3 (0.1-0.6); Monocytes Percent Auto 7.8 % (2.6-8.5); Neutrophils Absolute Auto 4.4 K/mm3 (1.3-6.7); Neutrophils Percent Auto 55.9 % (45.5-73.1); Platelet Count Result 135 k/mm3 (150-375); Red Blood Count 3.86 M/mm3 (4.6-6.20); Red Cell Distribution Width 17.9 % (11.5-14.5); White Blood Count 7.9 K/mm3 (4.5-10.0)
[2021-06-02 06:11] LABS: Alanine Aminotransferase 8 U/L (4-50); Albumin Level 2.6 g/dL (3.5-5.1); Alkaline Phosphatase 97 U/L (38-126); Anion Gap 3 mmol/L (8-16); Aspartate Amino Transferase 23 U/L (17-59); Bilirubin,Total 0.5 mg/dL (0.2-1.3); Blood Urea Nitrogen 55 mg/dL (9-20); Calcium 7.9 mg/dL (8.4-10.2); Carbon Dioxide 20 mmol/L (22-30); Chloride 112 mmol/L (98-107); Estimated CRCL calculation 25 ml/min; Estimated Glomerular Filt Rate 25; Glucose 209 mg/dL (65-110); Potassium 5.2 mmol/L (3.4-5.0); Sodium 135 mmol/L (137-145)
--- NOTE | 2021-06-02 06:51 | WPDURCON ---
Assessment and Plan Assessment and plan (1) Incomplete emptying of bladder due to benign prostatic hyperplasia: Code(s): N40.1 - Benign prostatic hyperplasia with lower urinary tract symptoms; R33.9 - Retention of urine, unspecified Status: Acute (2) Recurrent UTI: Code(s): N39.0 - Urinary tract infection, site not specified Status: Acute Assessment and Plan: Chronic cystitis/ recurrent urinary tract infections resulting from generalized debility with immunocompromise in addition to incomplete bladder emptying secondary to BPH. Will add finasteride to his tamsulosin to maximize medical management for BPH. I agree with plans for suppressive antibiotics ( ie, cephalexin 250 mg daily) once current infection completed. Urology Consult Note HPI Date Seen: 06/02/21 Requesting Physician: Moo Workman MD Primary Care Provider: Neftaly Ford MD Consult Narrative Narrative: Maris Jackman is a 75 year old male who wee first became firm area with during admission in January 2021. His end-stage renal disease and is status post renal transplantation at [facility] in 2007. He has since developed failure of the transplant kidney, as well. In January 2021, and again during this admission, were asked to see him for management of recurrent urinary tract infections. During that admission renal ultrasound demonstrated incomplete bladder emptying and mild hydronephrosis of his transplant kidney. The hydronephrosis resolved with placement of a urethral catheter. He was discharged on tamsulosin and we have not seen him since. On this occasion he was admitted with generalized weakness and mental status changes. At the time of admission his urinalysis appeared infected. He was found to have a residual bladder volume of 400 cc for which a urethral catheter was placed without difficulty. Review of Systems Cardiovascular: Cardiovascular: Denies chest pain, Denies lightheadedness, Denies palpitations and Denies dyspnea Respiratory: Respiratory: Denies dyspnea Gastrointestinal: Gastrointestinal: Denies diarrhea, Denies nausea and Denies vomiting Genitourinary: Genitourinary: Denies hematuria and Denies dysuria Endocrine: Endocrine: Denies palpitations PMFSH Past Medical History Medical History Anemia Benign prostatic hyperplasia Cerebrovascular accident Chronic anticoagulation Chronic kidney disease, stage 4 (severe) Congestive heart failure Echo from 12/02/2020 showed normal LV size and function with an estimated EF of 55-60%, mild left ventricular wall thickness, grade 2 diastolic dysfunction, and reduced right ventricular systolic function. Coronary artery disease Depression Dry mouth Gastroparesis Glaucoma Gout Hyperlipidemia Hypertension Insulin dependent type 2 diabetes mellitus Myocardial infarction Parkinson's disease Paroxysmal atrial fibrillation With history of cardioversion. Peripheral vascular disease Seizures Following fall and subdural hematoma in December 2018. Skin cancer Subdural hematoma (12/2018) Surgical History Surgical History History of four vessel coronary artery bypass graft (02/2008) History of kidney transplant (2007) History of thoracentesis History of transcatheter aortic valve replacement (TAVR) (06/01/20) 06/01/2020 History of vitrectomy Family History Family History Father Family history of malignant neoplasm of stomach Mother Diabetes mellitus Grandparent Family history of cardiovascular disease Diabetes mellitus Sibling Crohn's disease Brain aneurysm Social History Social History Social History: The patient lives with his in [place] although he has been in the hospital or a rehab facility a majority of the last 6
[2021-06-02] MEDS: CARBIDOPA/LEVODOPA 25/250 MG TABLET 1 TABLET PO (09:44)
[2021-06-02] MEDS: allopurinoL 150 MG TABLET PO (09:44)
[2021-06-02] MEDS: ASPIRIN 81 MG CHEWABLE TABLET PO (09:44)
[2021-06-02] MEDS: VITAMIN B CMPLX/VIT C/FOLIC AC 1 CAPSULE 1 CAP PO (09:44)
[2021-06-02] MEDS: AMIODARONE HCL 200 MG TABLET PO (09:45)
[2021-06-02] MEDS: APIXABAN 2.5 MG TABLET PO (09:45)
[2021-06-02] MEDS: FERROUS SULFATE 324 MG TABLET PO (09:45)
[2021-06-02] MEDS: ACIDOPHILUS/BULGARICUS CHEWABLE TABLET 1 TABLET PO (09:45)
[2021-06-02] MEDS: PYRIDOXINE HCL 50 MG TABLET 100 MG PO (09:45)
[2021-06-02] MEDS: METOPROLOL TARTRATE 50 MG TAB PO ×2 (09:45→20:15)
[2021-06-02] MEDS: predniSONE 5 MG TABLET PO (09:45)
[2021-06-02] MEDS: amLODIPine BESYLATE 5 MG TABLET 10 MG PO (09:46)
[2021-06-02] MEDS: INSULIN ASPART (*BKC) 100 UNITS/ML SUB-Q (09:47)
[2021-06-02] MEDS: PANTOPRAZOLE 40 MG TABLET PO ×2 (09:48→20:15)
[2021-06-02] MEDS: MICONAZOLE NITRATE 2% CREAM 30 GM TUBE 1 APPLIC TOPICAL ×2 (09:48→20:16)
[2021-06-02] MEDS: FINASTERIDE 5 MG TABLET PO (09:49)
[2021-06-02 11:06] LABS: Glucose Point of Care 201 mg/dl (65-105)
[2021-06-02 11:51] LABS: Glucose Point of Care 178 mg/dl (65-105)
[2021-06-02] MEDS: PROCHLORPERAZINE EDISYLATE 10 MG/2 ML VIAL IV PUSH (13:39)
[2021-06-02 16:20] LABS: Glucose Point of Care 143 mg/dl (65-105)
--- NOTE | 2021-06-02 16:46 | PM.IMPN ---
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 Status: Acute (7) Insulin dependent type 2 diabetes mellitus: Code(s): E11.9 - Type 2 diabetes mellitus without complications; Z79.4 - 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 he has known h/o recurrent UTI. # Acute Encephalopathy: ?related to UTI Seems to have returned to baseline Frequent reorientation PT/OT Worsened today. Get EEG to rule out underlying subclinical seizure he does have a history of seizure in the past after traumatic head injury # ? UTI His urinalyses have been abnormal with most visits in the last 6 months and his urine cultures at times have showed no growth but he has also grown out ESBL Klebsiella oxytoca, coag negative staphylococcus, Proteus mirabilis, Enterococcus species, and [place]a albicans. Urine culture on 05/13/2021 (obtained from Davidson catheter) grew greater than 100,000 CFUs of Enterococcus species for which he completed a long course of IV vancomycin on 05/25/2021 in addition to [place] albicans, not treated. c/w vanc+Ceftriaxone Needs ID evaluation if possible Urine culture with Klebsiella ESBL Will switch antibiotic to ertapenem He has recurrent UTI. With multiple different bacteria as. Bladder scan post residual is elevated more than 300 cc. He is incontinent to urine. Also on Flomax. He also has transplant kidney and on immunosuppression with tacrolimus and prednisone which predisposes him to get recurrent infection. He was once on Davidson catheter which was eventually discontinued. The evidence of ongoing elevated post residual volume. Will consult Urology for further direction to prevent UTIs. Prophylactic antibiotics were discussed with the family today however unsure what would be ideal agent to use as he has grown several different bacteria as in the past and some of them are ESBL and multidrug resistant bacteria. Status post Davidson catheter placement 06/01/2021 Urology consultation reviewed and appreciated recommendation. Added on finasteride. Suggest cephalexin daily for prophylactic antibiotics. # Elevated troponin: no chest pain Will not pursue further due to h/o CKD # Chronic kidney disease, stage 4 (severe): Seems to be at base line as of now Remains stable Avoid nephrotoxins if worsens will call nephrology consult # Paroxysmal atrial fibrillation: c/w amiodarone c/w Eliquis # Insulin dependent type 2 diabetes mellitus: BG check TID AC and HS HBA1C6.6 BG running low normal d/c lantus c/w mid dose SS insulin premeal Adjust dose as needed # Parkinson disease: Continue carbidopa levodopa. # Status post kidney transplant: Continue tacrolimus and prednisone. # HTN: Increase norvasc c/w metoprolol holding parameters on midodrine # Code:DNR # nausea vomiting unclear etiology will get CT abdomen and pelvis
[2021-06-02] MEDS: ERTAPENEM 1 GM/NS 50 ML 1 GM/50 ML BAG IVPB (17:23)
[2021-06-02] MEDS: LATANOPROST 0.005% OP SOLN 2.5 ML BTL 1 DROP EACH EYE (20:14)
[2021-06-02] MEDS: VENLAFAXINE HCL XR 75 MG CAP.ER.24H PO (20:15)
[2021-06-02] MEDS: ATORVASTATIN 40 MG TABLET PO (20:16)
[2021-06-02] MEDS: TAMSULOSIN HCL 0.4 MG CAPSULE PO (20:17)
[2021-06-02] MEDS: CARBIDOPA/LEVODOPA 25/100 MG TABLET 1 TABLET PO (20:18)
[2021-06-03] VITALS (10 sets, daily range): BP systolic 111–158; BP diastolic 52–69; PULSE 61–78; RESP 14–20; TEMP 35.9–36.6; O2SAT 100
[2021-06-03 06:14] LABS: Basophils Absolute Auto 0.1 K/mm3 (0.0-0.1); Basophils Percent Auto 0.8 % (0.2-1.2); Eosinophils Absolute Auto 0.2 K/mm3 (0-0.3); Eosinophils Percent Auto 2.6 % (0-4.4); Hematocrit 34.4 % (42.0-52.0); Hemoglobin 11.2 g/dL (14.0-18.0); Immature Granulocyte Absolute 0.04 K/mm3 (0.00-0.031); Immature Granulocyte Percent A 0.6 % (0-0.5); Lymphocytes Absolute Auto 2.24 K/mm3 (0.9-3.2); Lymphocytes Percent Auto 36.1 % (18.3-44.2); Mean Corpuscular HGB Conc 32.6 g/dl (32-36); Mean Corpuscular Hemoglobin 31.1 pg (26-34); Mean Corpuscular Volume 95.6 fl (80-100); Mean Platelet Volume 10.7 fl (7.4-10.4); Monocytes Absolute Auto 0.5 K/mm3 (0.1-0.6); Monocytes Percent Auto 7.9 % (2.6-8.5); Neutrophils Absolute Auto 3.2 K/mm3 (1.3-6.7); Platelet Count Result 134 k/mm3 (150-375); Red Cell Distribution Width 17.6 % (11.5-14.5); White Blood Count 6.2 K/mm3 (4.5-10.0)
[2021-06-03 06:29] LABS: Alanine Aminotransferase 8 U/L (4-50); Albumin Level 2.4 g/dL (3.5-5.1); Alkaline Phosphatase 92 U/L (38-126); Anion Gap 3 mmol/L (8-16); Aspartate Amino Transferase 18 U/L (17-59); Bilirubin,Total 0.4 mg/dL (0.2-1.3); Blood Urea Nitrogen 52 mg/dL (9-20); Calcium 7.9 mg/dL (8.4-10.2); Carbon Dioxide 20 mmol/L (22-30); Chloride 113 mmol/L (98-107); Estimated CRCL calculation 25 ml/min; Estimated Glomerular Filt Rate 25; Glucose 124 mg/dL (65-110); Sodium 136 mmol/L (137-145)
[2021-06-03 08:02] LABS: Glucose Point of Care 115 mg/dl (65-105)
[2021-06-03] MEDS: CARBIDOPA/LEVODOPA 25/250 MG TABLET 1 TABLET PO ×2 (08:28→17:18)
[2021-06-03] MEDS: amLODIPine BESYLATE 5 MG TABLET 10 MG PO (08:28)
[2021-06-03] MEDS: APIXABAN 2.5 MG TABLET PO ×2 (08:28→17:18)
[2021-06-03] MEDS: ASPIRIN 81 MG CHEWABLE TABLET PO (08:28)
[2021-06-03] MEDS: allopurinoL 150 MG TABLET PO (08:28)
[2021-06-03] MEDS: PYRIDOXINE HCL 50 MG TABLET 100 MG PO (08:28)
[2021-06-03] MEDS: PANTOPRAZOLE 40 MG TABLET PO ×2 (08:28→20:01)
[2021-06-03] MEDS: ACIDOPHILUS/BULGARICUS CHEWABLE TABLET 1 TABLET PO ×2 (08:28→17:18)
[2021-06-03] MEDS: VITAMIN B CMPLX/VIT C/FOLIC AC 1 CAPSULE 1 CAP PO (08:29)
[2021-06-03] MEDS: calcitrioL 0.25 MCG CAPSULE 0.5 MCG PO (08:29)
[2021-06-03] MEDS: METOPROLOL TARTRATE 50 MG TAB PO ×2 (08:29→20:02)
[2021-06-03] MEDS: FERROUS SULFATE 324 MG TABLET PO (08:29)
[2021-06-03] MEDS: AMIODARONE HCL 200 MG TABLET PO (08:30)
[2021-06-03] MEDS: predniSONE 5 MG TABLET PO (08:30)
[2021-06-03] MEDS: FINASTERIDE 5 MG TABLET PO (08:32)
[2021-06-03] MEDS: MICONAZOLE NITRATE 2% CREAM 30 GM TUBE 1 APPLIC TOPICAL ×2 (08:32→20:02)
[2021-06-03] MEDS: CARBIDOPA/LEVODOPA 25/100 MG TABLET 1 TABLET PO ×2 (11:38→20:01)
[2021-06-03 11:50] LABS: Glucose Point of Care 195 mg/dl (65-105)
[2021-06-03] MEDS: BRIMONIDINE TARTRATE 0.2% OP SOLN 5 ML BTL 1 DROP EACH EYE ×2 (12:59→20:02)
--- NOTE | 2021-06-03 13:37 | PM.IMPN ---
Progress Note: A&P Assessment and Plan (1) Altered mental status: Code(s): R41.82 - Altered mental status, unspecified Status: Acute (2) Abnormal urinalysis: Code(s): R82.90 - Unspecified abnormal findings in urine Status: Acute (3) Elevated troponin: Code(s): R77.8 - Other specified abnormalities of plasma proteins Status: Acute (4) Chronic kidney disease, stage 4 (severe): Code(s): N18.4 - Chronic kidney disease, stage 4 (severe) Status: Chronic (5) Paroxysmal atrial fibrillation: Code(s): I48.0 - Paroxysmal atrial fibrillation Status: Acute (6) Chronic anticoagulation: Code(s): Z79.01 - [facility] (current) use of anticoagulants Status: Acute (7) Insulin dependent type 2 diabetes mellitus: Code(s): E11.9 - Type 2 diabetes mellitus without complications; Z79.4 - [facility] (current) use of insulin Status: Acute (8) Parkinson disease: Code(s): G20 - Parkinson's disease Status: Acute (9) Status post kidney transplant: Code(s): Z94.0 - Kidney transplant status Status: Acute Additional Plan 75-year-old male with Parkinson's disease, end-stage renal disease status post renal transplant with 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 he has known h/o recurrent UTI. # Acute Encephalopathy: ?related to UTI Seems to have returned to baseline Frequent reorientation PT/OT Worsened 06/03/2021 EEG performed but awaiting report. 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 UTI His urinalyses have been abnormal with most visits in the last 6 months and his urine cultures at times have showed no growth but he has also grown out ESBL Klebsiella oxytoca, coag negative staphylococcus, Proteus mirabilis, Enterococcus species, and Augusta albicans. Urine culture on 05/13/2021 (obtained from Davidson catheter) grew greater than 100,000 CFUs of Enterococcus species for which he completed a long course of IV vancomycin on 05/25/2021 in addition to Augusta albicans, not treated. c/w vanc+Ceftriaxone Needs ID evaluation if possible Urine culture with Klebsiella ESBL Will switch antibiotic to ertapenem He has recurrent UTI. With multiple different bacteria as. Bladder scan post residual is elevated more than 300 cc. He is incontinent to urine. Also on Flomax. He also has transplant kidney and on immunosuppression with tacrolimus and prednisone which predisposes him to get recurrent infection. He was once on Davidson catheter which was eventually discontinued. The evidence of ongoing elevated post residual volume. Will consult Urology for further direction to prevent UTIs. Prophylactic antibiotics were discussed with the family today however unsure what would be ideal agent to use as he has grown several different bacteria as in the past and some of them are ESBL and multidrug resistant bacteria. Status post Davidson catheter placement 06/01/2021 Urology consultation reviewed and appreciated recommendation. Added on finasteride. Suggest cephalexin daily for prophylactic antibiotics. # Elevated troponin: no chest pain Will not pursue further due to h/o CKD # Chronic kidney disease, stage 4 (severe): Seems to be at base line as of now Remains stable Avoid nephrotoxins if worsens will call nephrology consult # Paroxysmal atrial fibrillation: c/w amiodarone c/w Eliquis # Insulin dependent type 2 diabetes mellitus: BG check TID AC and HS HBA1C6.6 BG running low normal d/c lantus c/w mid dose SS insulin premeal Adjust dose as needed # Parkinson disease: Continue carbidopa levodopa. # Status post kidney transplant: Continue tacrolimus and prednisone. # HTN: Increase norvasc c/w metoprolol holding parameters on midodrine # Code:DNR # nausea vomiting unclear etiology CT abdomen
[2021-06-03 16:21] LABS: Glucose Point of Care 327 mg/dl (65-105)
[2021-06-03] MEDS: ERTAPENEM 1 GM/NS 50 ML 1 GM/50 ML BAG IVPB (17:17)
[2021-06-03] MEDS: INSULIN ASPART (*BKC) 100 UNITS/ML SUB-Q (17:18)
[2021-06-03] MEDS: ATORVASTATIN 40 MG TABLET PO (20:01)
[2021-06-03] MEDS: TAMSULOSIN HCL 0.4 MG CAPSULE PO (20:01)
[2021-06-03] MEDS: VENLAFAXINE HCL XR 75 MG CAP.ER.24H PO (20:01)
[2021-06-03] MEDS: LATANOPROST 0.005% OP SOLN 2.5 ML BTL 1 DROP EACH EYE (20:02)
[2021-06-03 21:55] LABS: Glucose Point of Care 320 mg/dl (65-105)
[2021-06-03 21:55] LABS: Glucose Point of Care 363 mg/dl (65-105)
[2021-06-03] MEDS: INSULIN ASPART (*BKC) 100 UNITS/ML 6 UNITS SUB-Q (22:38)
[2021-06-04] VITALS (8 sets, daily range): BP systolic 116–159; BP diastolic 54–67; PULSE 60–68; RESP 15–18; TEMP 36.1–36.7; O2SAT 97–100
[2021-06-04] MEDS: BRIMONIDINE TARTRATE 0.2% OP SOLN 5 ML BTL 1 DROP EACH EYE ×3 (06:11→22:48)
--- NOTE | 2021-06-04 06:53 | WPDUROPN2 ---
Progress Note: A&P Assessment and Plan (1) Incomplete emptying of bladder due to benign prostatic hyperplasia: Code(s): N40.1 - Benign prostatic hyperplasia with lower urinary tract symptoms; R33.9 - Retention of urine, unspecified Status: Acute (2) Recurrent UTI: Code(s): N39.0 - Urinary tract infection, site not specified Status: Acute Assessment and Plan: Chronic cystitis/ recurrent urinary tract infections resulting from generalized debility with immunocompromise in addition to incomplete bladder emptying secondary to BPH. Will add finasteride to his tamsulosin to maximize medical management for BPH. I agree with plans for suppressive antibiotics ( ie, cephalexin 250 mg daily) once current infection completed. 06/04/21 Tolerating catheter and urine clear. I would favor leaving catheter indwelling for 2-3 weeks. His incomplete bladder emptying certainly contributes to risk of recurrent UTI. Nitrofurantion x7 days for current enterococcus UTI should suffice. Then, suppressive Keflex 500mg daily. Subjective Subjective Date/Time Seen: 06/04/21 06:53 Tolerating catheter without problem. Urine clear Review of Systems Review of Systems: ROS unobtainable: Yes unobtainable due to mental status Exam Const: General: no acute distress Resp: Effort & Inspection: normal respiratory effort GI: Inspection: non-distended GI Palp: No abdominal tenderness and No Guarding due to palpation present (GI) Auscultation: normal bowel sounds Objective Data Vital Signs Vital Signs: Vital Signs - 24 hr 06/03/21 08:00 06/03/21 08:29 06/03/21 08:30 Temperature 96.9 F L Pulse Rate 68 76 78 Respiratory Rate 20 Blood Pressure 154/69 H Pulse Oximetry 100 06/03/21 11:50 06/03/21 16:00 06/03/21 20:00 Temperature 96.9 F L 96.7 F L 97.9 F Pulse Rate 67 63 61 Respiratory Rate 20 18 18 Blood Pressure 111/52 L 153/65 H 150/66 H Pulse Oximetry 100 100 100 06/03/21 20:02 06/03/21 23:38 06/04/21 04:00 Temperature 97.4 F L 97.9 F Pulse Rate 78 64 66 Respiratory Rate 17 15 Blood Pressure 156/65 H 159/61 H Pulse Oximetry 100 99 Intake/Output Intake/Output: Intake & Output 06/01/21 06/02/21 06/03/21 06/04/21 23:59 23:59 23:59 23:59 Intake Total 1810 350 650 300 Output Total 900 850 350 Balance 1810 -550 -200 -50 Meds/Results Medications: Active Medications Generic Name Dose Route Start Last Admin Trade Name Freq PRN Reason Stop Dose Admin Acetaminophen 650 mg 05/31/21 16:00 Acetaminophen 325 Mg Tablet PO Q6H PRN Mild Pain (1-3) Or Fever Allopurinol 150 mg 05/31/21 09:00 06/03/21 08:28 Allopurinol 150 Mg Tablet PO 150 mg DAILY [facility] Administration Amiodarone HCl 200 mg 05/31/21 09:00 06/03/21 08:30 Amiodarone Hcl 200 Mg Tablet PO 200 mg DAILY [facility] Administration Amlodipine Besylate 10 mg 06/01/21 09:00 06/03/21 08:28 Amlodipine Besylate 5 Mg Tablet PO 10 mg QAM [facility] Administration Apixaban 2.5 mg 05/31/21 09:00 06/03/21 17:18 Apixaban 2.5 Mg Tablet PO 2.5 mg BID [facility] Administration Artificial Tears 1 drop 05/30/21 19:54 Artificial Tears Ophth Soln 15 Ml Bottle EACH EYE TID PRN Dry Eye(S) Aspirin 81 mg 05/31/21 08:00 06/03/21 08:28 Aspirin 81 Mg Chewable Tablet PO 81 mg DAILY@0800 [facility] Administration Atorvastatin Calcium 40 mg 05/30/21 21:00 06/03/21 20:01 Atorvastatin 40 Mg Tablet PO 40 mg HS [facility] Administration Bisacodyl 10 mg 05/31/21 09:00 06/03/21 08:30 Bisacodyl 10 Mg Suppository RECTAL Not Given QAM [facility] Brimonidine Tartrate 1 drop 05/30/21 22:00 06/04/21 06:11 Brimonidine Tartrate 0.2% Op Soln 5 Ml Btl EACH EYE 1 drop Q8HR [facility] Administration Calcitriol 0.5 mcg 06/01/21 09:00 06/03/21 08:29 Calcitriol 0.25 Mcg Capsule PO 0.5 mcg MoWeFr@0900 [facility] Administration Carbidopa/Levodopa 1 tablet 05/31/21 09:00 06/03/21 17:18 Carbido
[2021-06-04 07:06] LABS: Alanine Aminotransferase 10 U/L (4-50); Albumin Level 2.6 g/dL (3.5-5.1); Alkaline Phosphatase 97 U/L (38-126); Anion Gap 2 mmol/L (8-16); Aspartate Amino Transferase 21 U/L (17-59); Bilirubin,Total 0.4 mg/dL (0.2-1.3); Blood Urea Nitrogen 57 mg/dL (9-20); Calcium 8.3 mg/dL (8.4-10.2); Carbon Dioxide 21 mmol/L (22-30); Chloride 110 mmol/L (98-107); Estimated CRCL calculation 21 ml/min; Estimated Glomerular Filt Rate 21; Glucose 233 mg/dL (65-110); Magnesium 1.8 mg/dL (1.6-2.3); Potassium 4.8 mmol/L (3.4-5.0); Sodium 133 mmol/L (137-145)
[2021-06-04 07:10] LABS: Basophils Percent Auto 0.4 % (0.2-1.2); Eosinophils Absolute Auto 0.1 K/mm3 (0-0.3); Eosinophils Percent Auto 0.8 % (0-4.4); Hematocrit 36.2 % (42.0-52.0); Hemoglobin 11.9 g/dL (14.0-18.0); Immature Granulocyte Absolute 0.03 K/mm3 (0.00-0.031); Immature Granulocyte Percent A 0.4 % (0-0.5); Lymphocytes Absolute Auto 2.28 K/mm3 (0.9-3.2); Lymphocytes Percent Auto 27.3 % (18.3-44.2); Mean Corpuscular HGB Conc 32.9 g/dl (32-36); Mean Corpuscular Volume 94.3 fl (80-100); Mean Platelet Volume 10.8 fl (7.4-10.4); Monocytes Absolute Auto 0.7 K/mm3 (0.1-0.6); Monocytes Percent Auto 8.3 % (2.6-8.5); Neutrophils Absolute Auto 5.2 K/mm3 (1.3-6.7); Neutrophils Percent Auto 62.8 % (45.5-73.1); Platelet Count Result 141 k/mm3 (150-375); Red Blood Count 3.84 M/mm3 (4.6-6.20); Red Cell Distribution Width 17.3 % (11.5-14.5); White Blood Count 8.3 K/mm3 (4.5-10.0)
[2021-06-04 07:55] LABS: Glucose Point of Care 241 mg/dl (65-105)
[2021-06-04] MEDS: FERROUS SULFATE 324 MG TABLET PO (08:04)
[2021-06-04] MEDS: allopurinoL 150 MG TABLET PO (08:04)
[2021-06-04] MEDS: VITAMIN B CMPLX/VIT C/FOLIC AC 1 CAPSULE 1 CAP PO (08:04)
[2021-06-04] MEDS: PANTOPRAZOLE 40 MG TABLET PO ×2 (08:04→20:03)
[2021-06-04] MEDS: AMIODARONE HCL 200 MG TABLET PO (08:04)
[2021-06-04] MEDS: ASPIRIN 81 MG CHEWABLE TABLET PO (08:04)
[2021-06-04] MEDS: ACIDOPHILUS/BULGARICUS CHEWABLE TABLET 1 TABLET PO ×2 (08:04→17:21)
[2021-06-04] MEDS: PYRIDOXINE HCL 50 MG TABLET 100 MG PO (08:04)
[2021-06-04] MEDS: CARBIDOPA/LEVODOPA 25/250 MG TABLET 1 TABLET PO ×2 (08:05→17:22)
[2021-06-04] MEDS: FINASTERIDE 5 MG TABLET PO (08:05)
[2021-06-04] MEDS: APIXABAN 2.5 MG TABLET PO ×2 (08:05→17:22)
[2021-06-04] MEDS: predniSONE 5 MG TABLET PO (08:05)
[2021-06-04] MEDS: METOPROLOL TARTRATE 50 MG TAB PO ×2 (08:05→20:40)
[2021-06-04] MEDS: amLODIPine BESYLATE 5 MG TABLET 10 MG PO (08:05)
[2021-06-04] MEDS: INSULIN ASPART (*BKC) 100 UNITS/ML SUB-Q ×3 (08:06→17:22)
[2021-06-04] MEDS: MICONAZOLE NITRATE 2% CREAM 30 GM TUBE 1 APPLIC TOPICAL ×2 (08:07→20:05)
[2021-06-04 12:05] LABS: Glucose Point of Care 209 mg/dl (65-105)
[2021-06-04] MEDS: CARBIDOPA/LEVODOPA 25/100 MG TABLET 1 TABLET PO ×2 (12:26→20:03)
[2021-06-04] MEDS: ACETAMINOPHEN 325 MG TABLET 650 MG PO (12:42)
--- NOTE | 2021-06-04 13:06 | PM.IMPN ---
Progress Note: A&P Assessment and Plan (1) Altered mental status: Code(s): R41.82 - Altered mental status, unspecified Status: Acute (2) Abnormal urinalysis: Code(s): R82.90 - Unspecified abnormal findings in urine Status: Acute (3) Elevated troponin: Code(s): R77.8 - Other specified abnormalities of plasma proteins Status: Acute (4) Chronic kidney disease, stage 4 (severe): Code(s): N18.4 - Chronic kidney disease, stage 4 (severe) Status: Chronic (5) Paroxysmal atrial fibrillation: Code(s): I48.0 - Paroxysmal atrial fibrillation Status: Acute (6) Chronic anticoagulation: Code(s): Z79.01 - [facility] (current) use of anticoagulants Status: Acute (7) Insulin dependent type 2 diabetes mellitus: Code(s): E11.9 - Type 2 diabetes mellitus without complications; Z79.4 - medical terminologist (current) use of insulin Status: Acute (8) Parkinson disease: Code(s): G20 - Parkinson's disease Status: Acute (9) Status post kidney transplant: Code(s): Z94.0 - Kidney transplant status Status: Acute Additional Plan 75-year-old male with Parkinson's disease, end-stage renal disease status post renal transplant with 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 he has known h/o recurrent UTI. # Acute Encephalopathy: ?related to UTI Seems to have returned to baseline Frequent reorientation PT/OT Worsened 06/03/2021 EEG performed but awaiting report. 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 UTI His urinalyses have been abnormal with most visits in the last 6 months and his urine cultures at times have showed no growth but he has also grown out ESBL Klebsiella oxytoca, coag negative staphylococcus, Proteus mirabilis, Enterococcus species, and Augusta albicans. Urine culture on 05/13/2021 (obtained from Davidson catheter) grew greater than 100,000 CFUs of Enterococcus species for which he completed a long course of IV vancomycin on 05/25/2021 in addition to Augusta albicans, not treated. c/w vanc+Ceftriaxone Needs ID evaluation if possible Urine culture with Klebsiella ESBL Will switch antibiotic to ertapenem He has recurrent UTI. With multiple different bacteria as. Bladder scan post residual is elevated more than 300 cc. He is incontinent to urine. Also on Flomax. He also has transplant kidney and on immunosuppression with tacrolimus and prednisone which predisposes him to get recurrent infection. He was once on Davidson catheter which was eventually discontinued. The evidence of ongoing elevated post residual volume. Will consult Urology for further direction to prevent UTIs. Prophylactic antibiotics were discussed with the family today however unsure what would be ideal agent to use as he has grown several different bacteria as in the past and some of them are ESBL and multidrug resistant bacteria. Status post Davidson catheter placement 06/01/2021 Urology consultation reviewed and appreciated recommendation. Added on finasteride. Suggest cephalexin daily for prophylactic antibiotics. plan is to continue ertapenem for at least 7 days course which can be switched after that to oral nitrofurantoin. He has complicated UTI and will require 10-14 days course of antibiotics. Given urine culture is growing ESBL I would prefer to continue IV antibiotics for total of 7 days before switch to oral antibiotics. He will then be started on prophylactic antibiotics which would include Keflex 250 mg daily OR nitrofurantoin 50 mg daily # Elevated troponin: no chest pain Will not pursue further due to h/o CKD # Chronic kidney disease, stage 4 (severe): Seems to be at base line as of now Remains stable Avoid nephrotoxins Creatinine slightly worse today but likely may be just the fluctuation will repeat again tomorrow If wo
[2021-06-04 17:20] LABS: Glucose Point of Care 242 mg/dl (65-105)
[2021-06-04] MEDS: ERTAPENEM 1 GM/NS 50 ML 1 GM/50 ML BAG IVPB (17:20)
[2021-06-04] MEDS: NONFORMULARY NUTRITIONAL SUPPLEMENT 1 EACH XX (17:21)
[2021-06-04 19:48] LABS: Glucose Point of Care 244 mg/dl (65-105)
[2021-06-04] MEDS: TAMSULOSIN HCL 0.4 MG CAPSULE PO (20:03)
[2021-06-04] MEDS: VENLAFAXINE HCL XR 75 MG CAP.ER.24H PO (20:03)
[2021-06-04] MEDS: LATANOPROST 0.005% OP SOLN 2.5 ML BTL 1 DROP EACH EYE (20:04)
[2021-06-04] MEDS: ATORVASTATIN 40 MG TABLET PO (20:05)
[2021-06-04] MEDS: INSULIN GLARGINE (*BKC) 100 UNITS/ML 12 UNITS SUB-Q (20:45)
[2021-06-05] VITALS (10 sets, daily range): BP systolic 131–155; BP diastolic 57–70; PULSE 59–109; RESP 16–20; TEMP 35.4–36.3; O2SAT 95–100
--- NOTE | 2021-06-05 01:55 | PC.NURSE ---
Daylight Savings Time For Daylight Savings Time Ending in the Fall - Clocks are moved back. For Daylight Savings Time Beginning in the Spring - Clocks are moved ahead. For [facility], the time of change occurs at 0200 hrs. Time is taken from the cafeteria food server. This entry on the patient's chart recognizes the change in time reflected during documentation. Example: 2 entries for vital signs may be charted for 0200 hrs.
[2021-06-05] MEDS: BRIMONIDINE TARTRATE 0.2% OP SOLN 5 ML BTL 1 DROP EACH EYE ×3 (05:48→20:38)
[2021-06-05 06:16] LABS: Basophils Percent Auto 0.3 % (0.2-1.2); Eosinophils Absolute Auto 0.1 K/mm3 (0-0.3); Hematocrit 34.6 % (42.0-52.0); Hemoglobin 11.6 g/dL (14.0-18.0); Immature Granulocyte Absolute 0.05 K/mm3 (0.00-0.031); Immature Granulocyte Percent A 0.5 % (0-0.5); Lymphocytes Absolute Auto 2.05 K/mm3 (0.9-3.2); Lymphocytes Percent Auto 20.4 % (18.3-44.2); Mean Corpuscular HGB Conc 33.5 g/dl (32-36); Mean Corpuscular Volume 95.6 fl (80-100); Mean Platelet Volume 11.1 fl (7.4-10.4); Monocytes Absolute Auto 0.7 K/mm3 (0.1-0.6); Monocytes Percent Auto 6.8 % (2.6-8.5); Neutrophils Absolute Auto 7.1 K/mm3 (1.3-6.7); Platelet Count Result 146 k/mm3 (150-375); Red Blood Count 3.62 M/mm3 (4.6-6.20); Red Cell Distribution Width 17.2 % (11.5-14.5); White Blood Count 10.1 K/mm3 (4.5-10.0)
[2021-06-05 06:36] LABS: Anion Gap 4 mmol/L (8-16); Blood Urea Nitrogen 54 mg/dL (9-20); Calcium 8.3 mg/dL (8.4-10.2); Carbon Dioxide 21 mmol/L (22-30); Chloride 110 mmol/L (98-107); Estimated CRCL calculation 23 ml/min; Estimated Glomerular Filt Rate 23; Glucose 201 mg/dL (65-110); Magnesium 1.8 mg/dL (1.6-2.3); Potassium 4.7 mmol/L (3.4-5.0); Sodium 135 mmol/L (137-145)
[2021-06-05 07:47] LABS: Glucose Point of Care 227 mg/dl (65-105)
[2021-06-05] MEDS: APIXABAN 2.5 MG TABLET PO ×2 (08:12→16:56)
[2021-06-05] MEDS: ASPIRIN 81 MG CHEWABLE TABLET PO (08:12)
[2021-06-05] MEDS: CARBIDOPA/LEVODOPA 25/250 MG TABLET 1 TABLET PO ×2 (08:12→16:56)
[2021-06-05] MEDS: amLODIPine BESYLATE 5 MG TABLET 10 MG PO (08:12)
[2021-06-05] MEDS: SENNA/DOCUSATE SODIUM TABLET 1 TAB PO (08:12)
[2021-06-05] MEDS: PYRIDOXINE HCL 50 MG TABLET 100 MG PO (08:12)
[2021-06-05] MEDS: PANTOPRAZOLE 40 MG TABLET PO ×2 (08:13→20:37)
[2021-06-05] MEDS: MICONAZOLE NITRATE 2% CREAM 30 GM TUBE 1 APPLIC TOPICAL ×2 (08:13→20:38)
[2021-06-05] MEDS: FINASTERIDE 5 MG TABLET PO (08:13)
[2021-06-05] MEDS: ACIDOPHILUS/BULGARICUS CHEWABLE TABLET 1 TABLET PO ×2 (08:14→16:55)
[2021-06-05] MEDS: predniSONE 5 MG TABLET PO (08:14)
[2021-06-05] MEDS: VITAMIN B CMPLX/VIT C/FOLIC AC 1 CAPSULE 1 CAP PO (08:14)
[2021-06-05] MEDS: allopurinoL 150 MG TABLET PO (08:14)
[2021-06-05] MEDS: AMIODARONE HCL 200 MG TABLET PO (08:16)
[2021-06-05] MEDS: INSULIN ASPART (*BKC) 100 UNITS/ML SUB-Q ×2 (08:17→16:57)
[2021-06-05] MEDS: FERROUS SULFATE 324 MG TABLET PO (08:17)
[2021-06-05] MEDS: METOPROLOL TARTRATE 50 MG TAB PO ×2 (08:18→20:37)
[2021-06-05 11:52] LABS: Glucose Point of Care 171 mg/dl (65-105)
[2021-06-05] MEDS: CARBIDOPA/LEVODOPA 25/100 MG TABLET 1 TABLET PO ×2 (12:05→20:37)
--- NOTE | 2021-06-05 12:52 | PM.IMPN ---
Progress Note: A&P Assessment and Plan (1) Altered mental status: Qualifiers: Altered mental status type: unspecified Qualified Code(s): R41.82 - Altered mental status, unspecified Code(s): R41.82 - Altered mental status, unspecified Status: Acute Assessment and Plan: - Has returned to baseline mental status. - Improving with tx of UTI with abx. - Suspicion underlying dementia associated with his Parkinson's (2) Abnormal urinalysis: Code(s): R82.90 - Unspecified abnormal findings in urine Status: Acute Assessment and Plan: - His urinalyses have been abnormal with most visits in the last 6 months and his urine cultures at times have showed no growth but he has also grown out ESBL Klebsiella oxytoca, coag negative staphylococcus, Proteus mirabilis, Enterococcus species, and Augusta albicans. Urine culture on 05/13/2021 (obtained from Davidson catheter) grew greater than 100,000 CFUs of Enterococcus species for which he completed a long course of IV vancomycin on 05/25/2021 in addition to Augusta albicans, not treated. Given normal white blood cell count, lack of fever, and really lack of symptoms it is difficult to say that he has an active urinary tract infection. This is complicated by the fact that he is status post renal transplant. Discussions with Infectious Disease and his renal transplant team would be appropriate regarding management of bacteriuria and possible candiduria in this patient, not possible at this hour. - Continue with a 7 day course of Ertapenem and then discharge with either Nitrofurantoin 50 mg po daily or Keflex 250 mg po daily for suppressive maintenance. (3) Elevated troponin: Code(s): R77.8 - Other specified abnormalities of plasma proteins Status: Acute Assessment and Plan: - Troponin very mildly elevated and less than what his troponins typically run. He is not having any chest pain thus this is not indicative of acute coronary syndrome is likely elevated setting of his multiple comorbidities and renal failure. (4) Chronic kidney disease, stage 4 (severe): Code(s): N18.4 - Chronic kidney disease, stage 4 (severe) Status: Chronic Assessment and Plan: - BUN and creatinine are stable on review of previous labs. H (5) Paroxysmal atrial fibrillation: Code(s): I48.0 - Paroxysmal atrial fibrillation Status: Acute Assessment and Plan: - Currently in a sinus rhythm. Continue amiodarone. - Anticoagulated with Eliquis. (6) Chronic anticoagulation: Code(s): Z79.01 - terminal manager (current) use of anticoagulants Status: Acute Assessment and Plan: - Continue apixaban for stroke prophylaxis secondary to Atrial Fibrillation (7) Insulin dependent type 2 diabetes mellitus: Code(s): E11.9 - Type 2 diabetes mellitus without complications; Z79.4 - terminal manager (current) use of insulin Status: Acute Assessment and Plan: - Continue basal insulin. Initiate sliding scale insulin, Accu-Cheks, and hypoglycemic protocol. (8) Parkinson disease: Code(s): G20 - Parkinson's disease Status: Acute Assessment and Plan: - Continue carbidopa levodopa. (9) Status post kidney transplant: Code(s): Z94.0 - Kidney transplant status Status: Acute Assessment and Plan: - Continue tacrolimus and prednisone. Time Spent With Patient Time with patient: 15 - 25 minutes Subjective Date/time seen: 06/05/21 0930 This pt. is examined at the bedside in interval assessment. He is pleasantly confused but attempts to answer all questions. He denies any acute pain or dyspnea at this time. His urine grew back positive for ESBL Klebsiella Oxytoca. It is sensitive to Ertapenem which he is receiving daily. Pt. needs a course of at least 7 days of IV abx before discharge. This is currently day #4 of IV therapy. He will then need to be discharged on a suppressive do
[2021-06-05] MEDS: LIDOCAINE HCL 1% LOCAL INJ 2 ML AMPUL 5 ML INFILTRATE (13:27)
[2021-06-05 16:10] LABS: Glucose Point of Care 264 mg/dl (65-105)
[2021-06-05] MEDS: ERTAPENEM 1 GM/NS 50 ML 1 GM/50 ML BAG IVPB (16:57)
[2021-06-05 19:42] LABS: Glucose Point of Care 283 mg/dl (65-105)
[2021-06-05] MEDS: INSULIN GLARGINE (*BKC) 100 UNITS/ML 12 UNITS SUB-Q (20:36)
[2021-06-05] MEDS: ATORVASTATIN 40 MG TABLET PO (20:37)
[2021-06-05] MEDS: TAMSULOSIN HCL 0.4 MG CAPSULE PO (20:37)
[2021-06-05] MEDS: VENLAFAXINE HCL XR 75 MG CAP.ER.24H PO (20:37)
[2021-06-05] MEDS: LATANOPROST 0.005% OP SOLN 2.5 ML BTL 1 DROP EACH EYE (20:38)
[2021-06-05] MEDS: MELATONIN 5 MG TABLET PO (20:38)
[2021-06-06] VITALS (11 sets, daily range): BP systolic 131–155; BP diastolic 61–71; PULSE 55–76; RESP 16–18; TEMP 35.9–36.3; O2SAT 97–100
[2021-06-06 05:34] LABS: Basophils Percent Auto 0.3 % (0.2-1.2); Eosinophils Absolute Auto 0.1 K/mm3 (0-0.3); Eosinophils Percent Auto 1.2 % (0-4.4); Hematocrit 34.6 % (42.0-52.0); Hemoglobin 11.4 g/dL (14.0-18.0); Immature Granulocyte Absolute 0.06 K/mm3 (0.00-0.031); Immature Granulocyte Percent A 0.7 % (0-0.5); Lymphocytes Absolute Auto 2.21 K/mm3 (0.9-3.2); Lymphocytes Percent Auto 24.6 % (18.3-44.2); Mean Corpuscular HGB Conc 32.9 g/dl (32-36); Mean Corpuscular Hemoglobin 31.4 pg (26-34); Mean Corpuscular Volume 95.3 fl (80-100); Mean Platelet Volume 11.2 fl (7.4-10.4); Monocytes Absolute Auto 0.6 K/mm3 (0.1-0.6); Monocytes Percent Auto 6.9 % (2.6-8.5); Neutrophils Percent Auto 66.3 % (45.5-73.1); Platelet Count Result 136 k/mm3 (150-375); Red Blood Count 3.63 M/mm3 (4.6-6.20); Red Cell Distribution Width 17.2 % (11.5-14.5)
[2021-06-06 05:45] LABS: Alanine Aminotransferase 8 U/L (4-50); Albumin Level 2.6 g/dL (3.5-5.1); Alkaline Phosphatase 92 U/L (38-126); Anion Gap 3 mmol/L (8-16); Aspartate Amino Transferase 23 U/L (17-59); Bilirubin,Total 0.3 mg/dL (0.2-1.3); Blood Urea Nitrogen 51 mg/dL (9-20); Calcium 8.1 mg/dL (8.4-10.2); Carbon Dioxide 22 mmol/L (22-30); Chloride 110 mmol/L (98-107); Estimated CRCL calculation 23 ml/min; Estimated Glomerular Filt Rate 23; Glucose 152 mg/dL (65-110); Magnesium 1.8 mg/dL (1.6-2.3); Potassium 4.7 mmol/L (3.4-5.0); Sodium 135 mmol/L (137-145)
[2021-06-06 08:04] LABS: Glucose Point of Care 126 mg/dl (65-105)
[2021-06-06] MEDS: AMIODARONE HCL 200 MG TABLET PO (09:18)
[2021-06-06] MEDS: BRIMONIDINE TARTRATE 0.2% OP SOLN 5 ML BTL 1 DROP EACH EYE ×3 (09:18→21:01)
[2021-06-06] MEDS: ASPIRIN 81 MG CHEWABLE TABLET PO (09:18)
[2021-06-06] MEDS: amLODIPine BESYLATE 5 MG TABLET 10 MG PO (09:18)
[2021-06-06] MEDS: CARBIDOPA/LEVODOPA 25/250 MG TABLET 1 TABLET PO ×2 (09:20→17:08)
[2021-06-06] MEDS: allopurinoL 150 MG TABLET PO (09:20)
[2021-06-06] MEDS: FINASTERIDE 5 MG TABLET PO (09:21)
[2021-06-06] MEDS: predniSONE 5 MG TABLET PO (09:21)
[2021-06-06] MEDS: METOPROLOL TARTRATE 50 MG TAB PO ×2 (09:21→21:01)
[2021-06-06] MEDS: APIXABAN 2.5 MG TABLET PO ×2 (09:24→17:08)
[2021-06-06] MEDS: FERROUS SULFATE 324 MG TABLET PO (09:29)
[2021-06-06] MEDS: ACIDOPHILUS/BULGARICUS CHEWABLE TABLET 1 TABLET PO ×2 (09:29→17:08)
[2021-06-06] MEDS: MICONAZOLE NITRATE 2% CREAM 30 GM TUBE 1 APPLIC TOPICAL ×2 (09:30→21:01)
[2021-06-06] MEDS: calcitrioL 0.25 MCG CAPSULE 0.5 MCG PO (09:30)
[2021-06-06] MEDS: PYRIDOXINE HCL 50 MG TABLET 100 MG PO (09:31)
[2021-06-06] MEDS: PANTOPRAZOLE 40 MG TABLET PO ×2 (09:31→21:01)
[2021-06-06] MEDS: VITAMIN B CMPLX/VIT C/FOLIC AC 1 CAPSULE 1 CAP PO (09:31)
[2021-06-06] MEDS: CARBIDOPA/LEVODOPA 25/100 MG TABLET 1 TABLET PO ×2 (11:45→21:01)
[2021-06-06 11:59] LABS: Glucose Point of Care 137 mg/dl (65-105)
--- NOTE | 2021-06-06 13:47 | PM.IMPN ---
Progress Note: A&P Assessment and Plan (1) Altered mental status: Qualifiers: Altered mental status type: unspecified Qualified Code(s): R41.82 - Altered mental status, unspecified Code(s): R41.82 - Altered mental status, unspecified Status: Acute Assessment and Plan: - Has returned to baseline mental status. - Pt is improving with IV abx Pt has history of parkinsons and dementia (2) Abnormal urinalysis: Code(s): R82.90 - Unspecified abnormal findings in urine Status: Acute Assessment and Plan: - His urinalyses have been abnormal with most visits in the last 6 months and his urine cultures at times have showed no growth but he has also grown out ESBL Klebsiella oxytoca, coag negative staphylococcus, Proteus mirabilis, Enterococcus species, and Augusta albicans. Urine culture on 05/13/2021 (obtained from Davidson catheter) grew greater than 100,000 CFUs of Enterococcus species for which he completed a long course of IV vancomycin on 05/25/2021 in addition to Augusta albicans, not treated. - Pt has history of renal transplant - Continue with a 7 day course of Ertapenem and then discharge with either Nitrofurantoin 50 mg po daily or Keflex 250 mg po daily for suppressive maintenance. - I will consult urology if there is anything else to offer medically for frequent UTIs - UC is positive for ESBL, Wcc is nl (3) Elevated troponin: Code(s): R77.8 - Other specified abnormalities of plasma proteins Status: Acute Assessment and Plan: - Troponin very mildly elevated, likely elevated setting of his multiple comorbidities and renal failure. (4) Chronic kidney disease, stage 4 (severe): Code(s): N18.4 - Chronic kidney disease, stage 4 (severe) Status: Chronic Assessment and Plan: - Creat is 2.7 which is baseline (5) Paroxysmal atrial fibrillation: Code(s): I48.0 - Paroxysmal atrial fibrillation Status: Acute Assessment and Plan: - Currently in a sinus rhythm. Continue amiodarone. - Anticoagulated with Eliquis. (6) Chronic anticoagulation: Code(s): Z79.01 - middle or intermediate school principal (current) use of anticoagulants Status: Acute Assessment and Plan: - Continue apixaban for stroke prophylaxis secondary to Atrial Fibrillation (7) Insulin dependent type 2 diabetes mellitus: Code(s): E11.9 - Type 2 diabetes mellitus without complications; Z79.4 - [facility] (current) use of insulin Status: Acute Assessment and Plan: - Continue basal insulin. Initiate sliding scale insulin, Accu-Cheks, and hypoglycemic protocol. (8) Parkinson disease: Code(s): G20 - Parkinson's disease Status: Acute Assessment and Plan: - Continue carbidopa levodopa. (9) Status post kidney transplant: Code(s): Z94.0 - Kidney transplant status Status: Acute Assessment and Plan: - Continue tacrolimus and prednisone. Subjective Date/time seen: 06/06/21 13:47 Interval history: 06/01/2021 present with altered mental status. Is more alert today and answering questions. According to the was at bedside he has getting better. No other complaints. 06/02/2021 he is more lethargic today. Very slow to respond. at bedside. Davidson was placed in last night. Remains afebrile. Vitals stable. Also been having some nausea vomiting and was actively reaching during the visit today 06/03/2021 seen this morning. He is more alert today. Slow to respond but better than yesterday. No overnight events reported. No further nausea vomiting 06/04/2021 seen this morning. at bedside and discussed with her. Is more alert and awake answering questions responding better. Davidson catheter in place remains afebrile he denies any new complaints except for fatigue and tiredness and generalized weakness 06/06/2021 pt appears more lucid today, but fatigued needs assistance to stand. pt
[2021-06-06 16:31] LABS: Glucose Point of Care 229 mg/dl (65-105)
[2021-06-06] MEDS: ERTAPENEM 1 GM/NS 50 ML 1 GM/50 ML BAG IVPB (17:09)
[2021-06-06] MEDS: INSULIN ASPART (*BKC) 100 UNITS/ML SUB-Q (17:10)
[2021-06-06 20:57] LABS: Glucose Point of Care 260 mg/dl (65-105)
[2021-06-06] MEDS: INSULIN GLARGINE (*BKC) 100 UNITS/ML 12 UNITS SUB-Q (20:59)
[2021-06-06] MEDS: TAMSULOSIN HCL 0.4 MG CAPSULE PO (21:01)
[2021-06-06] MEDS: VENLAFAXINE HCL XR 75 MG CAP.ER.24H PO (21:01)
[2021-06-06] MEDS: LATANOPROST 0.005% OP SOLN 2.5 ML BTL 1 DROP EACH EYE (21:01)
[2021-06-06] MEDS: ATORVASTATIN 40 MG TABLET PO (21:01)
--- NOTE | 2021-06-06 22:24 | PC.NURSE ---
During my evening assessment I noticed the patients penis and scrotum area were very swollen and tender per pt. The urine in the cerna bag looked brown and there was yellow discharge from his penis. [employer]OBI[employer] CONTRACT CLERK Ira notified, cerna was irrigated with no resistance noted and return was yellow. Will continue to monitor.
[2021-06-06] MEDS: WATER FOR IRRIGATION, STERILE 1,000 ML BOTTLE 1000 ML (23:15)
[2021-06-07] VITALS (9 sets, daily range): BP systolic 134–149; BP diastolic 55–80; PULSE 64–69; RESP 16–20; TEMP 36.3–36.9; O2SAT 97–100
[2021-06-07] MEDS: BRIMONIDINE TARTRATE 0.2% OP SOLN 5 ML BTL 1 DROP EACH EYE ×3 (05:11→21:44)
[2021-06-07 06:28] LABS: Basophils Percent Auto 0.2 % (0.2-1.2); Eosinophils Absolute Auto 0.1 K/mm3 (0-0.3); Eosinophils Percent Auto 0.8 % (0-4.4); Hematocrit 34.8 % (42.0-52.0); Hemoglobin 11.5 g/dL (14.0-18.0); Immature Granulocyte Absolute 0.06 K/mm3 (0.00-0.031); Immature Granulocyte Percent A 0.7 % (0-0.5); Lymphocytes Absolute Auto 2.22 K/mm3 (0.9-3.2); Lymphocytes Percent Auto 26.4 % (18.3-44.2); Mean Corpuscular Hemoglobin 31.7 pg (26-34); Mean Corpuscular Volume 95.9 fl (80-100); Mean Platelet Volume 11.6 fl (7.4-10.4); Monocytes Absolute Auto 0.5 K/mm3 (0.1-0.6); Monocytes Percent Auto 6.3 % (2.6-8.5); Neutrophils Absolute Auto 5.5 K/mm3 (1.3-6.7); Neutrophils Percent Auto 65.6 % (45.5-73.1); Platelet Count Result 141 k/mm3 (150-375); Red Blood Count 3.63 M/mm3 (4.6-6.20); Red Cell Distribution Width 17.1 % (11.5-14.5); White Blood Count 8.4 K/mm3 (4.5-10.0)
[2021-06-07 06:40] LABS: Alanine Aminotransferase 10 U/L (4-50); Albumin Level 2.5 g/dL (3.5-5.1); Alkaline Phosphatase 85 U/L (38-126); Anion Gap 5 mmol/L (8-16); Aspartate Amino Transferase 23 U/L (17-59); Bilirubin,Total 0.4 mg/dL (0.2-1.3); Blood Urea Nitrogen 56 mg/dL (9-20); Calcium 8.2 mg/dL (8.4-10.2); Carbon Dioxide 21 mmol/L (22-30); Chloride 110 mmol/L (98-107); Estimated CRCL calculation 22 ml/min; Estimated Glomerular Filt Rate 22; Glucose 263 mg/dL (65-110); Potassium 5.2 mmol/L (3.4-5.0); Sodium 136 mmol/L (137-145)
--- NOTE | 2021-06-07 07:14 | WPDUROPN2 ---
Progress Note: A&P Assessment and Plan (1) Incomplete emptying of bladder due to benign prostatic hyperplasia: Code(s): N40.1 - Benign prostatic hyperplasia with lower urinary tract symptoms; R33.9 - Retention of urine, unspecified Status: Acute (2) Recurrent UTI: Code(s): N39.0 - Urinary tract infection, site not specified Status: Acute Assessment and Plan: Chronic cystitis/ recurrent urinary tract infections resulting from generalized debility with immunocompromise in addition to incomplete bladder emptying secondary to BPH. Will add finasteride to his tamsulosin to maximize medical management for BPH. I agree with plans for suppressive antibiotics ( ie, cephalexin 250 mg daily) once current infection completed. 06/04/21 Tolerating catheter and urine clear. I would favor leaving catheter indwelling for 2-3 weeks. His incomplete bladder emptying certainly contributes to risk of recurrent UTI. Nitrofurantion x7 days for current enterococcus UTI should suffice. Then, suppressive Keflex 500mg daily. 06/06/21 Continues to tolerate catheter and urine clear. As above, recommend indwelling catheter for several weeks and suppressive abx. Subjective Subjective Date/Time Seen: 06/07/21 07:14 Comfortable/disoriented. Tolerating catheter well. Review of Systems Cardiovascular: Cardiovascular: Denies chest pain, Denies lightheadedness, Denies palpitations and Denies dyspnea Respiratory: Respiratory: Denies dyspnea Gastrointestinal: Gastrointestinal: Denies diarrhea, Denies nausea and Denies vomiting Genitourinary: Genitourinary: Denies hematuria and Denies dysuria Endocrine: Endocrine: Denies palpitations Exam Const: General: no acute distress Resp: Effort & Inspection: normal respiratory effort GI: Inspection: non-distended GI Palp: No abdominal tenderness and No Guarding due to palpation present (GI) Auscultation: normal bowel sounds Objective Data Vital Signs Vital Signs: Vital Signs - 24 hr 06/06/21 08:00 06/06/21 09:18 06/06/21 09:21 Temperature 96.9 F L Pulse Rate 56 L 76 76 Respiratory Rate 18 Blood Pressure 155/71 H Pulse Oximetry 100 06/06/21 12:00 06/06/21 13:25 06/06/21 16:00 Temperature 96.9 F L 96.7 F L Pulse Rate 56 L 55 L Respiratory Rate 18 18 Blood Pressure 147/63 H 148/67 H 131/61 Pulse Oximetry 99 97 06/06/21 20:00 06/06/21 21:01 06/06/21 21:58 Temperature 97.4 F L Pulse Rate 60 60 58 L Respiratory Rate 16 Blood Pressure 137/67 Pulse Oximetry 99 98 06/07/21 00:00 06/07/21 04:00 Temperature 97.6 F 98.5 F Pulse Rate 69 65 Respiratory Rate 18 18 Blood Pressure 136/80 149/70 H Pulse Oximetry 97 98 Intake/Output Intake/Output: Intake & Output 06/04/21 06/05/21 06/06/21 06/07/21 22:59 23:59 23:59 23:59 Intake Total 630 75 Output Total 900 200 Balance -270 -125 Meds/Results Medications: Active Medications Generic Name Dose Route Start Last Admin Trade Name Freq PRN Reason Stop Dose Admin Acetaminophen 650 mg 05/31/21 16:00 06/04/21 12:42 Acetaminophen 325 Mg Tablet PO 650 mg Q6H PRN Administration Mild Pain (1-3) Or Fever Allopurinol 150 mg 05/31/21 09:00 06/06/21 09:20 Allopurinol 150 Mg Tablet PO 150 mg DAILY [facility] Administration Amiodarone HCl 200 mg 05/31/21 09:00 06/06/21 09:18 Amiodarone Hcl 200 Mg Tablet PO 200 mg DAILY [facility] Administration Amlodipine Besylate 10 mg 06/01/21 09:00 06/06/21 09:18 Amlodipine Besylate 5 Mg Tablet PO 10 mg QAM [facility] Administration Apixaban 2.5 mg 05/31/21 09:00 06/06/21 17:08 Apixaban 2.5 Mg Tablet PO 2.5 mg BID [facility] Administration Artificial Tears 1 drop 05/30/21 19:54 Artificial Tears Ophth Soln 15 Ml Bottle EACH EYE TID PRN Dry Eye(S) Aspirin 81 mg 05/31/21 08:00 06/06/21 09:18 Aspirin 81 Mg Chewable Tablet PO 81 mg DAILY@0800 [facility] Administration Atorvastatin Calcium 40
[2021-06-07 07:53] LABS: Glucose Point of Care 235 mg/dl (65-105)
[2021-06-07] MEDS: INSULIN ASPART (*BKC) 100 UNITS/ML SUB-Q ×3 (08:28→17:32)
[2021-06-07] MEDS: PYRIDOXINE HCL 50 MG TABLET 100 MG PO (08:34)
[2021-06-07] MEDS: predniSONE 5 MG TABLET PO (08:34)
[2021-06-07] MEDS: PANTOPRAZOLE 40 MG TABLET PO ×2 (08:35→20:42)
[2021-06-07] MEDS: AMIODARONE HCL 200 MG TABLET PO (08:35)
[2021-06-07] MEDS: FINASTERIDE 5 MG TABLET PO (08:35)
[2021-06-07] MEDS: METOPROLOL TARTRATE 50 MG TAB PO ×2 (08:35→20:43)
[2021-06-07] MEDS: amLODIPine BESYLATE 5 MG TABLET 10 MG PO (08:36)
[2021-06-07] MEDS: FERROUS SULFATE 324 MG TABLET PO (08:36)
[2021-06-07] MEDS: APIXABAN 2.5 MG TABLET PO ×2 (08:36→17:37)
[2021-06-07] MEDS: ASPIRIN 81 MG CHEWABLE TABLET PO (08:36)
[2021-06-07] MEDS: CARBIDOPA/LEVODOPA 25/250 MG TABLET 1 TABLET PO ×2 (08:36→17:37)
[2021-06-07] MEDS: ACIDOPHILUS/BULGARICUS CHEWABLE TABLET 1 TABLET PO ×2 (08:37→17:37)
[2021-06-07] MEDS: allopurinoL 150 MG TABLET PO (08:37)
[2021-06-07] MEDS: VITAMIN B CMPLX/VIT C/FOLIC AC 1 CAPSULE 1 CAP PO (08:42)
[2021-06-07] MEDS: MICONAZOLE NITRATE 2% CREAM 30 GM TUBE 1 APPLIC TOPICAL ×2 (08:44→20:41)
--- NOTE | 2021-06-07 10:27 | P.NEURO_ITS ---
Neurology EEG Report General Information Date of Study: 06/02/21 TEST eeg DIAGNOSIS confusion CONDITION OF RECORDING sleep EEG NUMBER [id number] CLINICAL HISTORY complains of confusion but patient slept throughout the setup and tracing EEG DESCRIPTION whole record consists of 5 to 7 hertz per 2nd theta activity admixed with low- voltage 15 to 21 hertz per 2nd beta activity. Hyperventilation not done. Photic stimulation not done. Non paroxysmal. Nonfocal. Nonlateralizing. IMPRESSION No significant abnormalities noted although patient slept throughout the tracing. Clinical correlation recommended, if diagnosis of metabolic encephalopathy is strongly suspected repeat EEG at a later date recommended when the patient is fully awake.
--- NOTE | 2021-06-07 11:15 | PM.IMPN ---
Progress Note: A&P Assessment and Plan (1) Altered mental status: Qualifiers: Altered mental status type: unspecified Qualified Code(s): R41.82 - Altered mental status, unspecified Code(s): R41.82 - Altered mental status, unspecified Status: Acute Assessment and Plan: - Has returned to baseline mental status. - Pt is improving with IV abx Pt has history of parkinsons and dementia (2) Abnormal urinalysis: Code(s): R82.90 - Unspecified abnormal findings in urine Status: Acute Assessment and Plan: - His urinalyses have been abnormal with most visits in the last 6 months and his urine cultures at times have showed no growth but he has also grown out ESBL Klebsiella oxytoca, coag negative staphylococcus, Proteus mirabilis, Enterococcus species, and Augusta albicans. Urine culture on 05/13/2021 (obtained from Davidson catheter) grew greater than 100,000 CFUs of Enterococcus species for which he completed a long course of IV vancomycin on 05/25/2021 in addition to Augusta albicans, not treated. - Pt has history of renal transplant - Continue with a 7 day course of Ertapenem and then discharge with either Nitrofurantoin 50 mg po daily or Keflex 250 mg po daily for suppressive maintenance. - I will consult urology if there is anything else to offer medically for frequent UTIs - UC is positive for ESBL, Wcc is nl (3) Elevated troponin: Code(s): R77.8 - Other specified abnormalities of plasma proteins Status: Acute Assessment and Plan: - Troponin very mildly elevated, likely elevated setting of his multiple comorbidities and renal failure. (4) Chronic kidney disease, stage 4 (severe): Code(s): N18.4 - Chronic kidney disease, stage 4 (severe) Status: Chronic Assessment and Plan: - Creat is 2.8 which is baseline (5) Paroxysmal atrial fibrillation: Code(s): I48.0 - Paroxysmal atrial fibrillation Status: Acute Assessment and Plan: - Currently in a sinus rhythm. Continue amiodarone. - Anticoagulated with Eliquis. 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 Initiate sliding scale insulin, Accu-Cheks, and hypoglycemic protocol. (8) Parkinson disease: Code(s): G20 - Parkinson's disease Status: Acute Assessment and Plan: - Continue carbidopa levodopa. (9) Status post kidney transplant: Code(s): Z94.0 - Kidney transplant status Status: Acute Assessment and Plan: - Continue tacrolimus and prednisone. (10) Recurrent UTI: Code(s): N39.0 - Urinary tract infection, site not specified Status: Acute Assessment and Plan: # UTI His urinalyses have been abnormal with most visits in the last 6 months and his urine cultures at times have showed no growth but he has also grown out ESBL Klebsiella oxytoca, coag negative staphylococcus, Proteus mirabilis, Enterococcus species, and Augusta albicans. Urine culture on 05/13/2021 (obtained from Davidson catheter) grew greater than 100,000 CFUs of Enterococcus species for which he completed a long course of IV vancomycin on 05/25/2021 in addition to Augusta albicans, not treated. c/w vanc+Ceftriaxone Needs ID evaluation if possible Urine culture with Klebsiella ESBL Will switch antibiotic to ertapenem day 6 He has recurrent UTI. With multiple different bacteria as. Bladder scan post residual is elevated more than 300 cc. He is incontinen
--- NOTE | 2021-06-07 11:33 | PCNWS ---
Weekly nutritional screen. Pt on heart healthy diet, tolerating current diet with adequate intake. Noted glucose slightly elevated: 260,235,229 -family states this is typical for pt. [facility] and does not wish for diabetic restrictions. No weight loss reported. No nutritional needs at this time.
[2021-06-07 11:55] LABS: Glucose Point of Care 239 mg/dl (65-105)
[2021-06-07] MEDS: CARBIDOPA/LEVODOPA 25/100 MG TABLET 1 TABLET PO ×2 (12:09→21:43)
[2021-06-07] MEDS: FUROSEMIDE INJ 40 MG/4 ML VIAL IV PUSH (15:08)
[2021-06-07 16:51] LABS: Glucose Point of Care 217 mg/dl (65-105)
[2021-06-07] MEDS: ERTAPENEM SODIUM 0.5 GM in SODIUM CHLORIDE 0.9% IV 50 ML IVPB (17:37)
[2021-06-07 20:20] LABS: Glucose Point of Care 246 mg/dl (65-105)
[2021-06-07] MEDS: VENLAFAXINE HCL XR 75 MG CAP.ER.24H PO (20:41)
[2021-06-07] MEDS: TAMSULOSIN HCL 0.4 MG CAPSULE PO (20:42)
[2021-06-07] MEDS: LATANOPROST 0.005% OP SOLN 2.5 ML BTL 1 DROP EACH EYE (20:43)
[2021-06-07] MEDS: ATORVASTATIN 40 MG TABLET PO (20:43)
[2021-06-07] MEDS: INSULIN GLARGINE (*BKC) 100 UNITS/ML 12 UNITS SUB-Q (21:41)
[2021-06-08] VITALS (7 sets, daily range): BP systolic 137–150; BP diastolic 62–95; PULSE 60–65; RESP 16–18; TEMP 36.1–36.5; O2SAT 98–100
[2021-06-08 06:01] LABS: Basophils Percent Auto 0.4 % (0.2-1.2); Eosinophils Absolute Auto 0.1 K/mm3 (0-0.3); Eosinophils Percent Auto 0.7 % (0-4.4); Hematocrit 35.7 % (42.0-52.0); Hemoglobin 11.6 g/dL (14.0-18.0); Immature Granulocyte Absolute 0.09 K/mm3 (0.00-0.031); Immature Granulocyte Percent A 0.9 % (0-0.5); Lymphocytes Absolute Auto 2.93 K/mm3 (0.9-3.2); Mean Corpuscular HGB Conc 32.5 g/dl (32-36); Mean Corpuscular Hemoglobin 31.2 pg (26-34); Mean Platelet Volume 10.6 fl (7.4-10.4); Monocytes Absolute Auto 0.7 K/mm3 (0.1-0.6); Monocytes Percent Auto 7.1 % (2.6-8.5); Neutrophils Absolute Auto 6.3 K/mm3 (1.3-6.7); Neutrophils Percent Auto 61.9 % (45.5-73.1); Platelet Count Result 145 k/mm3 (150-375); Red Blood Count 3.72 M/mm3 (4.6-6.20); Red Cell Distribution Width 17.3 % (11.5-14.5); White Blood Count 10.1 K/mm3 (4.5-10.0)
[2021-06-08 06:07] LABS: Alanine Aminotransferase 8 U/L (4-50); Albumin Level 2.5 g/dL (3.5-5.1); Alkaline Phosphatase 85 U/L (38-126); Anion Gap 1 mmol/L (8-16); Aspartate Amino Transferase 22 U/L (17-59); Bilirubin,Total 0.3 mg/dL (0.2-1.3); Blood Urea Nitrogen 61 mg/dL (9-20); Calcium 8.3 mg/dL (8.4-10.2); Carbon Dioxide 21 mmol/L (22-30); Chloride 111 mmol/L (98-107); Estimated CRCL calculation 22 ml/min; Estimated Glomerular Filt Rate 22; Glucose 175 mg/dL (65-110); Magnesium 1.7 mg/dL (1.6-2.3); Potassium 4.9 mmol/L (3.4-5.0); Sodium 133 mmol/L (137-145)
[2021-06-08 07:52] LABS: Glucose Point of Care 156 mg/dl (65-105)
[2021-06-08] MEDS: BRIMONIDINE TARTRATE 0.2% OP SOLN 5 ML BTL 1 DROP EACH EYE ×2 (08:47→14:14)
[2021-06-08] MEDS: AMIODARONE HCL 200 MG TABLET PO (08:48)
[2021-06-08] MEDS: PYRIDOXINE HCL 50 MG TABLET 100 MG PO (08:48)
[2021-06-08] MEDS: VITAMIN B CMPLX/VIT C/FOLIC AC 1 CAPSULE 1 CAP PO (08:49)
[2021-06-08] MEDS: ASPIRIN 81 MG CHEWABLE TABLET PO (08:50)
[2021-06-08] MEDS: MICONAZOLE NITRATE 2% CREAM 30 GM TUBE 1 APPLIC TOPICAL (08:50)
[2021-06-08] MEDS: FERROUS SULFATE 324 MG TABLET PO (08:50)
[2021-06-08] MEDS: calcitrioL 0.25 MCG CAPSULE 0.5 MCG PO (08:50)
[2021-06-08] MEDS: PANTOPRAZOLE 40 MG TABLET PO (08:50)
[2021-06-08] MEDS: amLODIPine BESYLATE 5 MG TABLET 10 MG PO (08:51)
[2021-06-08] MEDS: allopurinoL 150 MG TABLET PO (08:51)
[2021-06-08] MEDS: predniSONE 5 MG TABLET PO (08:51)
[2021-06-08] MEDS: APIXABAN 2.5 MG TABLET PO ×2 (08:51→18:17)
[2021-06-08] MEDS: MIDODRINE HCL 2.5 MG TABLET 5 MG PO ×3 (08:52→18:54)
[2021-06-08] MEDS: FINASTERIDE 5 MG TABLET PO (08:53)
[2021-06-08] MEDS: METOPROLOL TARTRATE 50 MG TAB PO (08:53)
[2021-06-08] MEDS: CARBIDOPA/LEVODOPA 25/250 MG TABLET 1 TABLET PO ×2 (08:54→18:17)
[2021-06-08] MEDS: ACIDOPHILUS/BULGARICUS CHEWABLE TABLET 1 TABLET PO ×2 (08:54→18:18)
[2021-06-08] MEDS: MAGNESIUM SULF 2 GM/WATER 50ML 2 GM/50 ML BAG IVPB (09:00)
[2021-06-08] MEDS: CARBIDOPA/LEVODOPA 25/100 MG TABLET 1 TABLET PO (10:41)
--- NOTE | 2021-06-08 10:45 | PM.DS ---
DS: Admitting Diagnosis Discharge Date 06/08/21 1045 Admitting Diagnosis Recurrent UTI DS: Discharge Diagnosis Discharge Diagnosis (1) Altered mental status: Qualifiers: Altered mental status type: unspecified Qualified Code(s): R41.82 - Altered mental status, unspecified Code(s): R41.82 - Altered mental status, unspecified Status: Acute Assessment and Plan: - Has returned to baseline mental status. - Pt is improving with IV abx Pt has history of parkinsons and dementia (2) Abnormal urinalysis: Code(s): R82.90 - Unspecified abnormal findings in urine Status: Acute Assessment and Plan: - His urinalyses have been abnormal with most visits in the last 6 months and his urine cultures at times have showed no growth but he has also grown out ESBL Klebsiella oxytoca, coag negative staphylococcus, Proteus mirabilis, Enterococcus species, and Augusta albicans. Urine culture on 05/13/2021 (obtained from Davidson catheter) grew greater than 100,000 CFUs of Enterococcus species for which he completed a long course of IV vancomycin on 05/25/2021 in addition to Augusta albicans, not treated. - Pt has history of renal transplant - Continue with a 7 day course of Ertapenem and then discharge with either Nitrofurantoin 50 mg po daily or Keflex 250 mg po daily for suppressive maintenance. - I will consult urology if there is anything else to offer medically for frequent UTIs - UC is positive for ESBL, Wcc is nl (3) Elevated troponin: Code(s): R77.8 - Other specified abnormalities of plasma proteins Status: Acute Assessment and Plan: - Troponin very mildly elevated, likely elevated setting of his multiple comorbidities and renal failure. (4) Chronic kidney disease, stage 4 (severe): Code(s): N18.4 - Chronic kidney disease, stage 4 (severe) Status: Chronic Assessment and Plan: - Creat is 2.8 which is baseline (5) Paroxysmal atrial fibrillation: Code(s): I48.0 - Paroxysmal atrial fibrillation Status: Acute Assessment and Plan: - Currently in a sinus rhythm. Continue amiodarone. - Anticoagulated with Eliquis. 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 Initiate sliding scale insulin, Accu-Cheks, and hypoglycemic protocol. (8) Parkinson disease: Code(s): G20 - Parkinson's disease Status: Acute Assessment and Plan: - Continue carbidopa levodopa. (9) Status post kidney transplant: Code(s): Z94.0 - Kidney transplant status Status: Acute Assessment and Plan: - Continue tacrolimus and prednisone. (10) Recurrent UTI: Code(s): N39.0 - Urinary tract infection, site not specified Status: Acute DS: Summary Hospital Course Hospital Course: Patient is a 75-year-old male with a past medical history of renal transplant, AFib, hypertension, hyperlipidemia, Parkinson's, anemia, diabetes who presented to the ED with confusion. Chest x-ray upon admission showed cardiomegaly with atelectasis in left lower lung. CT of the abdomen and pelvis showed wall thickening and cystitis. Patient was started on IV ertapenem. Looking back patient does have multiple UTIs frequently. Patient was also noted to have retention and a Davidson was placed back into the patient. Urology was also consulted for further advice. It was determined the patient would probably benefit from a chronic antibiotic. BUN c
[2021-06-08 12:11] LABS: Glucose Point of Care 225 mg/dl (65-105)
[2021-06-08] MEDS: ACETAMINOPHEN 325 MG TABLET 650 MG PO (12:36)
[2021-06-08] MEDS: INSULIN ASPART (*BKC) 100 UNITS/ML SUB-Q ×2 (12:36→18:15)
[2021-06-08] MEDS: FUROSEMIDE INJ 40 MG/4 ML VIAL IV PUSH (14:13)
[2021-06-08 15:52] LABS: EDCOVIDSCREEN Negative (Negative)
[2021-06-08 16:50] LABS: Glucose Point of Care 260 mg/dl (65-105)
== END 2021-06-08 19:35 | DRG 690 ==
LOC: ANHED 10:58 → ANH3MEDSUR 12:25
PROVIDERS: Internal Medicine; Nurse Practitioner; Physician Assistant; Admitting Provider Internal Medicine; Emergency Provider Emergency Medicine; PCP Family Medicine; Visit Provider Nurse Practitioner Adult Health
DX: N39.0 Urinary tract infection, site not specified (principal); G93.49 Other encephalopathy; Z16.12 Extended spectrum beta lactamase (ESBL) resistance; I13.0 Hypertensive heart and chronic kidney disease with heart failure and stage 1 through stage 4 chronic kidney disease, or unspecified chronic kidney disease; N18.4 Chronic kidney disease, stage 4 (severe); Z94.0 Kidney transplant status; I50.9 Heart failure, unspecified; B96.89 Other specified bacterial agents as the cause of diseases classified elsewhere; G20 Parkinson's disease; F02.80 Dementia in other diseases classified elsewhere, unspecified severity, without behavioral disturbance, psychotic disturbance, mood disturbance, and anxiety; I48.0 Paroxysmal atrial fibrillation; E78.5 Hyperlipidemia, unspecified; D64.9 Anemia, unspecified; H40.9 Unspecified glaucoma; I25.10 Atherosclerotic heart disease of native coronary artery without angina pectoris; E11.51 Type 2 diabetes mellitus with diabetic peripheral angiopathy without gangrene; I73.9 Peripheral vascular disease, unspecified; R79.89 Other specified abnormal findings of blood chemistry; Z20.822 Contact with and (suspected) exposure to COVID-19; Z66 Do not resuscitate; K52.9 Noninfective gastroenteritis and colitis, unspecified; N40.1 Benign prostatic hyperplasia with lower urinary tract symptoms; R33.8 Other retention of urine; Z79.01 Long term (current) use of anticoagulants; Z79.4 Long term (current) use of insulin; Z86.73 Personal history of transient ischemic attack (TIA), and cerebral infarction without residual deficits; I25.2 Old myocardial infarction; Z95.2 Presence of prosthetic heart valve; Z95.1 Presence of aortocoronary bypass graft; Z85.828 Personal history of other malignant neoplasm of skin; Z87.820 Personal history of traumatic brain injury; N13.30 Unspecified hydronephrosis
CPT/HCPCS: 36415; 36569; 51701; 70450; 71045; 74176; 80048; 80053; 81001; 82948; 83036; 83605; 83735; 84443; 84484; 85025; 85027; 85055; 85610; 87077; 87086; 87088; 87186; 87426; 93005; 95816; 96365; 96366; 96367; 96375; 96376; 97110; 97161; 97166; 97530; 97535; 99285; A9270; C1751; C9803; G0378; J0131; J0610; J0696; J0780; J1335; J1815; J1940; J3370; J3475; J7030; J7512